=== PATIENT | female | born 1930 | race Caucasian/White ===

== ENCOUNTER 2017-07-03 19:27 | Inpatient (IN) | payer BC ==
[2017-07-03 20:01] VITALS: BMI 32.8
--- NOTE | 2017-07-03 20:35 | PDOC ---
History of Present Illness - History of Present Illness Initial Comments: 07/03/17 20:47 The patient is an 87 year old female with history of hypertension, hyperlipidemia, a-fib, brought in by her daughter for approximately 1 day of altered mental status. Per the patient's daughter at bedside, the patient has not gotten out of her rocking chair for greater than 24 hours secondary to generalized weakness. The daughter also reports the patient has been hallucinating about visiting family members. She has been urinating in her diapers in her chair. She also complains of bilateral knee pain which is common secondary to her arthritis. No fever noted. No complaints of dysuria or changes in urination. No chest pain or shortness of breath. No headache, blurred vision , or numbness or tingling. PCP is part of the [facility] <Tsering Guo - Last Filed: 07/04/17 03:54> - General History Source: Patient <Buzz Connelly - Last Filed: 07/08/17 20:12> - General Chief Complaint: Loss of Appetite Stated Complaint: FAILURE TO THRIVE Time Seen by Provider: 07/03/17 19:36 Past History <Tsering Guo - Last Filed: 07/04/17 03:54> - Past Medical History Cardiac Disorders: Yes (afib) GI Disorders: Yes (gi bleed 2* to coumadin) HTN: Yes Hypercholesterolemia: Yes - Surgical History Abdominal Surgery: Yes Cholecystectomy: Yes - Suicide/Smoking/Psychosocial Hx Smoking History: Never smoked Have you smoked in the past 12 months: No Information on smoking cessation initiated: No Hx Alcohol Use: No Drug/Substance Use Hx: No Hx Substance Use Treatment: No <Buzz Connelly - Last Filed: 07/08/17 20:12> - Past Medical History Allergies/Adverse Reactions: Allergies Allergy/AdvReac Type Severity Reaction Status Date / Time No Known Allergies Allergy Verified 07/03/17 19:56 Home Medications: Ambulatory Orders Allopurinol [Zyloprim -] 200 mg PO DAILY 08/27/13 Furosemide [Lasix -] 40 mg PO DAILY 08/27/13 Aspirin [ASA -] 81 mg PO DAILY #0 tab.chew 09/03/13 Cholecalciferol (Vitamin D3) [Vitamin D3 -] 1,000 unit PO DAILY #0 tab 09/03/13 Clonidine HCl [Catapres -] 0.2 mg PO BID #0 tablet 09/03/13 Losartan Potassium [Cozaar -] 50 mg PO DAILY #0 tablet 09/03/13 Mag Hydrox/Al Hydrox/Simeth [Mylanta Oral Suspension -] 30 ml PO TID #0 cup 01/10 Atorvastatin Ca [Lipitor] 20 mg PO HS 07/03/17 Diltiazem HCl [Cartia Xt] 180 mg PO DAILY 07/03/17 Metoprolol Succinate [Toprol XL -] 100 mg PO BID 07/03/17 Ramipril 2.5 mg PO DAILY 07/03/17 Torsemide 40 mg PO DAILY 07/03/17 Review of Systems - Review of Systems Able to Perform ROS?: Yes Comments:: 07/03/17 20:51 GENERAL/CONSTITUTIONAL: +Generalized weakness. No fever. HEAD, EYES, EARS, NOSE AND THROAT: No change in vision. No ear pain or discharge. No sore throat. GASTROINTESTINAL: No nausea, vomiting, diarrhea or constipation. GENITOURINARY: No dysuria, frequency, or change in urination. CARDIOVASCULAR: No chest pain or shortness of breath. RESPIRATORY: No cough, wheezing, or hemoptysis. MUSCULOSKELETAL: +Bilateral knee pain. No neck or back pain. SKIN: No rash NEUROLOGIC: +AMS, confusion, hallucination. No headache, vertigo, loss of consciousness, focal weakness, or change in sensation. ENDOCRINE: No increased thirst. No abnormal weight change. HEMATOLOGIC/LYMPHATIC: No anemia, easy bleeding, or history of blood clots. ALLERGIC/IMMUNOLOGIC: +Rash in diaper region. No hives or skin allergy. <Tsering Guo - Last Filed: 07/04/17 03:54> *Physical Exam - Vital Signs Last Vital Signs Temp Pulse Resp BP Pulse Ox 98.0 F 74 14 153/76 95 07/03/17 19:57 07/03/17 19:57 07/03/17 19:57 07/03/17 19:57 07/03/17 19:57 - Physical Exam Comments: 07/03/17 20:52 Constitutional: Awake, alert, oriented to self and place but not time. No acute distress. Head: Normocephalic. Atraumatic Eyes: PERRL. EOMI. Conjunctivae are not pale. +Sclera are injected with swelling of the lower lids bilateral. ENT: +Mucous membranes are dry. Posterior pharynx without exudates or erythema. Uvula midline. Neck: Supple. Full ROM. No lymphadenopathy. Cardiovascular: Regular rate. Regular rhythm. S1, S2 regular. Distal pulses are 2+ and symmetric. Pulmonary/Chest: No evidence of respiratory distress. Clear to auscultation bilaterally No wheezing, rales or rhonchi. Abdominal: Soft and non-distended. There is no tenderness. No rebound, guarding or rigidity. No organomegaly. No palpable masses. Good bowel sounds. Back: No CVA tenderness. Musculoskeletal: 2+ bilateral pitting lower extremity, no erythema or warmth. No cyanosis. No clubbing. Full range of motion in all extremities. No calf tenderness. Radial/pedal pulses are intact and 2+ bilaterally Skin: Erythema in the diaper region that is consistent with ramos. Neurological: Alert and oriented to person, place, not time. Cranial nerves II- XII are grossly intact. Normal speech. Strength is grossly symmetric. No sensory deficits. <Tsering Guo - Last Filed: 07/04/17 03:54> - Vital Signs Last Vital Signs Temp Pulse Resp BP Pulse Ox 98.0 F 74 14 153/76 95 07/03/17 19:57 07/03/17 19:57 07/03/17 19:57 07/03/17 19:57 07/03/17 19:57 <Buzz Connelly - Last Filed: 07/08/17 20:12> Heart Score/ECG Review #1 07/03/17 22:20 EKG obtained 21:27. Vent rate 102 bpm Atrial fibrillation with rapid ventricular response with premature ventricular or aberrantly conducted complexes. Rightward axis. Nonspecific ST and T wave abnormality. Abnormal EKG. 07/04/17 03:54 EKG obtained 3:52 Vent rate 99 bpm. Atrial fibrillation with premature ventricular or aberrantly conducted complexes. Nonspecific ST and T wave abnormality Prolonged QT Abnormal EKG <Tsering Guo - Last Filed: 07/04/17 03:54> ED Treatment Course - LABORATORY CBC & Chemistry Diagram: 07/03/17 21:05 07/03/17 21:05 <Tsering Guo - Last Filed: 07/04/17 03:54> - LABORATORY CBC & Chemistry Diagram: 07/08/17 06:50 07/08/17 06:50 <Buzz Connelly - Last Filed: 07/08/17 20:12> Medical Decision Making - Medical Decision Making 07/08/17 20:12 Dr. Connelly: The scribe's documentation has been prepared under my direction and personally reviewed by me in its entirery. I confirm that the note above accurately reflects all work, treatment, procedures, and medical decision making performed by me. <Buzz Connelly - Last Filed: 07/08/17 20:12> *DC/Admit/Observation/Transfer - Attestations Scribe Attestion: 07/03/17 21:02 Documentation prepared by Tsering Guo, acting as medical surgery nurse for Buzz Connelly DO. <Tsering Guo - Last Filed: 07/04/17 03:54> - Discharge Dispostion Admit: Yes <Buzz Connelly - Last Filed: 07/08/17 20:12> Diagnosis at time of Disposition: UTI (urinary tract infection) Qualifiers: Urinary tract infection type: acute cystitis Hematuria presence: without hematuria Qualified Code(s): N30.00 - Acute cystitis without hematuria Failure to thrive Qualifiers: Failure to thrive age range: in adult Qualified Code(s): R62.7 - Adult failure to thrive - Discharge Dispostion Condition at time of disposition: Stable
[2017-07-03] MEDS ORDERED: NYSTATIN 100,000 UNIT/GM TOPICAL CREAM 15 GM TUBE TP STA (20:47)
[2017-07-03 21:12] LABS: BASO % 0.4 % (0-2.0); HEMATOCRIT 41.4 % (32.4-45.2); HEMOGLOBIN 13.5 GM/dL (10.7-15.3); LYMPH % 8.1 % (8-40); MCHC 32.5 g/dl (32.0-36.0); MEAN CELL VOLUME 89.3 fl (80-96); MEAN PLT VOLUME 8.7 fl (7.5-11.1); MONO % 8.6 % (3.8-10.2); NEUT % 82.9 % (42.8-82.8); PLATELET COUNT 242 K/MM3 (134-434); RBC 4.64 M/mm3 (3.60-5.2); RDW 15.5 % (11.6-15.6); WHITE BLOOD COUNT 16.5 K/mm3 (4.0-10.0)
[2017-07-03 21:18] LABS: VENOUS PC02 24.7 mmHg (38-52); VENOUS PH 7.43 (7.32-7.42); VENOUS PO2 36.3 mmHg (28-48)
[2017-07-03 21:24] LABS: INR 1.31 (0.82-1.09); PROTHROMBIN TIME (PATIENT) 14.8 SEC (9.98-11.88)
[2017-07-03 21:31] LABS: URINE APPEARANCE CLOUDY; URINE BILIRUBIN NEGATIVE (NEGATIVE); URINE BLOOD 2+ (NEGATIVE); URINE COLOR DKYELLOW; URINE GLUCOSE (UA) NEGATIVE (NEGATIVE); URINE KETONE NEGATIVE (NEGATIVE); URINE NITRITE POSITIVE (NEGATIVE)
[2017-07-03 21:35] LABS: URINE PROTEIN 2+ (NEGATIVE)
[2017-07-03 21:36] LABS: URINE LEUK ESTERASE 3+ (NEGATIVE)
[2017-07-03 21:45] LABS: EPI CELLS RARE /HPF (FEW); URINE BACTERIA MANY /hpf (NONE SEEN); URINE HYALINE CAST 6 /lpf; URINE MUCUS RARE; YEAST FEW
[2017-07-03 21:46] LABS: ALBUMIN 3.1 g/dl (3.4-5.0); ANION GAP 9 (8-16); BILIRUBIN,TOTAL 2.7 mg/dL (0.2-1.0); BLOOD UREA NITROGEN 27 mg/dL (7-18); CALCIUM 8.9 mg/dL (8.5-10.1); CHLORIDE 106 mmol/L (98-107); CO2 29 mmol/L (21-32); CREATININE 1.1 mg/dL (0.55-1.02); GLUCOSE,RANDOM 129 mg/dL (74-106); POTASSIUM 3.5 mmol/L (3.5-5.1); SGOT/AST 45 U/L (15-37); SGPT/ALT 37 U/L (12-78); SODIUM 144 mmol/L (136-145); TOT PROT 6.7 g/dl (6.4-8.2)
[2017-07-03 21:49] LABS: ALK PHOS 189 U/L (45-117)
[2017-07-03] MEDS ORDERED: CEFTRIAXONE 1 GM/50 ML BAG ONE (22:11)
--- NOTE | 2017-07-03 22:29 | HP ---
CHIEF COMPLAINT: AMS, suspected UTI PCP: Dr. Radha Vivas Source: Daughter at bedside HISTORY OF PRESENT ILLNESS: 87 yo woman w/ pmh of HTN, HLD, afib (not currently on AC due to prior GI bleed) , stress incontinence, CVD who was BIBEMS in setting of two days of AMS and BL LE weakness. At baseline, pt lives at home on her own and is independent in all ADLs, however receives some assistance from her daughter who shops for her groceries. Per daughter, pt has no neurologic deficits at baseline, however over the last two days has been intermittently altered, speaking nonsensically and endorsing hallucinations of relatives who are not there. Yesterday, pt sat down in rocking chair at home and called daughter saying she was going to bed. However, pt was still in chair the next morning when pt checked on and has apparently urinated on herself. Pt with hx of stress incontinence for many years , however no hx of UTIs. Pt wears pads for chronic stress incontinence. Pt also w/ four days of productive cough with sputum resembling "tereso's glue", in addition to chills over last few days. Pt denies any fever, YOUNG/dizziness, CP, SOB, WOOD, dysuria, hematuria, diarrhea, focal neurologic deficits or peripheral numbness/tingling. Pt with BL arthralgias in knee for past two weeks (pt used to received steroid injections in past for knee pain, however not recently). She has never been hospitalized for UTI or infections before. No recent travel or sick contacts. ER course was notable for: (1)WBC 16.5 (2)UA + nitrites, WBCs (3)Trop 0.11, CK 694 (4)CXR w/ possible infiltrates Recent Travel: None PAST MEDICAL HISTORY: Afib HTN HLD GI bleed BL knee arthritis of unknown etiology ?gout CHF chronic venous insufficiency Esophageal cancer (elected for conservative management) PAST SURGICAL HISTORY: GB removal Hysterectomy Brain tumor resection (meningioma?) Social History: Smoking: No Alcohol: No Drugs: No Family History: Unable to obtain Allergies No Known Allergies Allergy (Verified 07/03/17 19:56) HOME MEDICATIONS: Home Medications Medication Instructions Recorded Allopurinol [Zyloprim -] 100 mg PO BID 08/27/13 Furosemide [Lasix -] 40 mg PO DAILY 08/27/13 Aspirin [ASA -] 81 mg PO DAILY #0 tab.chew 09/03/13 Atorvastatin Ca [Lipitor] 40 mg PO HS #0 tablet 09/03/13 Cholecalciferol (Vitamin D3) 1,000 unit PO DAILY #0 tab 09/03/13 [Vitamin D3 -] Clonidine HCl [Catapres -] 0.2 mg PO BID #0 tablet 09/03/13 Losartan Potassium [Cozaar -] 50 mg PO DAILY #0 tablet 09/03/13 Mag Hydrox/Al Hydrox/Simeth 30 ml PO TID #0 cup 09/03/13 [Mylanta Oral Suspension -] Metoprolol Succinate [Toprol XL -] 75 mg PO BID #0 tab.sr.24h 09/03/13 REVIEW OF SYSTEMS CONSTITUTIONAL: loss of appetite, generalized weakness, Absent: fever, chills, diaphoresis, malaise, weight change HEENT: Absent: rhinorrhea, nasal congestion, throat pain, throat swelling, difficulty swallowing, mouth swelling, ear pain, eye pain, visual changes CARDIOVASCULAR: Absent: chest pain, syncope, palpitations, irregular heart rate, lightheadedness , peripheral edema RESPIRATORY: Absent: cough, shortness of breath, dyspnea with exertion, orthopnea, wheezing, stridor, hemoptysis GASTROINTESTINAL: Absent: abdominal pain, abdominal distension, nausea, vomiting, diarrhea, constipation, melena, hematochezia GENITOURINARY: dysuria, Absent: frequency, urgency, hesitancy, hematuria, flank pain, genital pain MUSCULOSKELETAL: BL arthralgias in knees Absent: myalgia, joint swelling, back pain, neck pain SKIN: Absent: rash, itching, pallor HEMATOLOGIC/IMMUNOLOGIC: Absent: easy bleeding, easy bruising, lymphadenopathy, frequent infections ENDOCRINE: Absent: unexplained weight gain, unexplained weight loss, heat intolerance, cold intolerance NEUROLOGIC: mental status changes, LE weakness BL Absent: headache, focal weakness or paresthesias, dizziness, unsteady gait, seizure, bladder or bowel incontinence PSYCHIATRIC: Absent: anxiety, depression, suicidal or homicidal ideation, hallucinations. PHYSICAL EXAMINATION Vital Signs - 24 hr 07/03/17 19:57 Temperature 98.0 F Pulse Rate 74 Respiratory 14 Rate Blood Pressure 153/76 O2 Sat by Pulse 95 Oximetry (%) GENERAL: Pt A&Ox1, responsive to commands/questions HEAD: Normal with no signs of trauma. EYES: BL conjunctival injections. Lower eyelid hyperemia. Pupils equal, round and reactive to light, extraocular movements intact, sclera anicteric. No lid lag. EARS, NOSE, THROAT: Ears normal, nares patent, oropharynx clear without exudates. Moist mucous membranes. NECK: Normal range of motion, supple without lymphadenopathy, JVD, or masses. LUNGS: Decreased breath sounds at bases BL. No wheezes and no crackles. No accessory muscle use. HEART: Irregularly irregular. Distant heart sounds. normal S1 and S2. No other murmurs noted. ABDOMEN: +suprapubic tenderness to superficial and deep palpation. Otherwise, soft, nontender, not distended, normoactive bowel sounds, no guarding, no rebound, no masses. No hepatomegaly or splenomegaly. MUSCULOSKELETAL: BL restricted ROM at knees, painful to passive movement. Normal range of motion at all joints. No bony deformities or tenderness. No CVA tenderness. UPPER EXTREMITIES: 2+ pulses, warm, well-perfused. No cyanosis. No clubbing. No peripheral edema. LOWER EXTREMITIES: BL chronic venous insufficiency/stasis dermatitis, 3+ BL pitting edema to mid calf. Unable to assess pulses. No calf tenderness. NEUROLOGICAL: Cranial nerves II-XII intact. Normal speech. Gait not evaluated. 5/5 strength in UEs BL. 3/5 dorsiflexion in feet BL. 4/5 plantarflexion BL. Unable to assess strength at knee, given limitation of movement due to pain. PSYCHIATRIC: Cooperative. Good eye contact. Appropriate mood and affect. Tangential speech pattern, normal rate and prosody. Denies any current delusions , hallucinations. Pelvic: BL intertriginous rashes in inguinal folds consistent w/ diaper rash SKIN: BL venous statis changes in legs BL. Otherwise, warm, dry, normal turgor, no rashes or lesions noted, normal capillary refill. Laboratory Results - last 24 hr CBC, BMP 07/03/17 21:05 07/03/17 21:05 07/03/17 07/03/17 07/03/17 21:05 21:05 21:05 WBC 16.5 H D RBC 4.64 Hgb 13.5 Hct 41.4 MCV 89.3 MCH 29.0 MCHC 32.5 RDW 15.5 Plt Count 242 D MPV 8.7 D Neutrophils % 82.9 H D Lymphocytes % 8.1 D Monocytes % 8.6 Eosinophils % 0.0 D Basophils % 0.4 PT with INR 14.80 H INR 1.31 H PTT (Actin FS) 31.0 VBG pH POC VBG pCO2 POC VBG pO2 Mixed VBG HCO3 Sodium 144 Potassium 3.5 Chloride 106 Carbon Dioxide 29 Anion Gap 9 BUN 27 H D Creatinine 1.1 H Creat Clearance w eGFR 46.88 Random Glucose 129 H D Lactic Acid Calcium 8.9 Total Bilirubin 2.7 H D AST 45 H D ALT 37 Alkaline Phosphatase 189 H D Creatine Kinase 694 H Troponin I 0.11 H Total Protein 6.7 Albumin 3.1 L Urine Color Urine Appearance Urine pH Ur Specific Burke Urine Protein Urine Glucose (UA) Urine Ketones Urine Blood Urine Nitrite Urine Bilirubin Urine Urobilinogen Urine WBC (Auto) Urine RBC (Auto) Ur Epithelial Cells Urine Bacteria Hyaline Casts Urine Mucus Urine Yeast 07/03/17 07/03/17 07/03/17 21:05 21:10 21:20 WBC RBC Hgb Hct MCV MCH MCHC RDW Plt Count MPV Neutrophils % Lymphocytes % Monocytes % Eosinophils % Basophils % PT with INR INR PTT (Actin FS) VBG pH 7.43 H POC VBG pCO2 24.7 L POC VBG pO2 36.3 Mixed VBG HCO3 16.0 L Sodium Potassium Chloride Carbon Dioxide Anion Gap BUN Creatinine Creat Clearance w eGFR Random Glucose Lactic Acid 2.0 Calcium Total Bilirubin AST ALT Alkaline Phosphatase Creatine Kinase Troponin I Total Protein Albumin Urine Color Dkyellow Urine Appearance Cloudy Urine pH 5.0 Ur Specific Burke 1.016 Urine Protein 2+ H Urine Glucose (UA) Negative Urine Ketones Negative Urine Blood 2+ H Urine Nitrite Positive Urine Bilirubin Negative Urine Urobilinogen 2.0 H Urine WBC (Auto) 116 Urine RBC (Auto) 5 Ur Epithelial Cells Rare Urine Bacteria Many Hyaline Casts 6 Urine Mucus Rare Urine Yeast Few UA + WBCs, Nitrites EKG - Vent rate 102 bpm Atrial fibrillation with rapid ventricular response with premature ventricular or aberrantly conducted complexes. Rightward axis. Nonspecific ST and T wave abnormality. Abnormal EKG. CXR - Possible BL infiltrative pattern. Pt with chronic pleural effusions, consistent with prior studies. ASSESSMENT/PLAN: 87 yo woman w/ pmh of HTN, HLD, afib (not currently on AC due to prior GI bleed) , CVD who was BIBEMS in setting of two days of AMS and BL LE weakness. Differential for AMS remains broad, although likely secondary to active infection (UTI vs. PNA). However, must consider other possibilities (CVA, metabolic/vitamin abnormalities, syphilis etc...) #AMS - Differential includes infectious, metabolic, vascular, cardiogenic - Monitor MS - F/u all cultures; w/u for possible UTI vs PNA - TSH level - Vitamin B12 level - Non-con CT of head - RPR - ECHO #Elevated Trops - r/o ME - Trend trops - AM EKG #Elevated WBC - PNA vs. UTI; UA + for WBC, nitrites; CXR with possible BL infiltrates; WBC 16.5; afebrile - Ceftriaxone/azithromycin for presumptive CAP - ID consult, recs appreciated - trend lactate - trend wbc, fever curve - F/u all cultures - Sputum culture - Urine legionella antigen - Monitor for signs of HTN #Afib - Afib w/ RVR on EKG - No AC due to prior GI bleed - Rate control #CHF - not currently in exacerbation clinically - C/w ACEi, BB, torsemide - ECHO - Strict Is and Os - Monitor fluid status - Hold IVFs for now #Elevated Alk Phos - Liver U/S - CMP in AM; trend alk phos - f/u GGT #HTN - C/w home clonidine, diltiazem meds - Monitor for hypotension in setting of active infection #Chronic Venous Insufficiency - Wound care as outpt - Podiatry consult #Bl Inguinal rash - likely cutaneous candidiasis - Topical clotrimazole BID #HLD - C/w home lipitor #Gout - confirm med -c/w zyloprim #Prior GI Bleed - S+S - PPI for ppx - Monitor for hematemesis, melena PPX PPI Heparin Subq FEN Hold fluids until assess volume status Daily BMP NPO until after S+S eval Plan discussed with attending, Dr. Calista Sheridan, PGY1
--- NOTE | 2017-07-03 23:00 | PN ---
Teaching Attending Note Name of Resident: Armond Sheridan ATTENDING PHYSICIAN STATEMENT I saw and evaluated the patient. Chart, data, imaging reviewed. I reviewed the resident's note and discussed the case with the resident. I agree with the resident's findings and plan as documented. SUBJECTIVE: 87 year old female with history of hypertension, hyperlipidemia, a-fib, brought in by her daughter for approximately 1 day of altered mental status. Per the patient's daughter at bedside, the patient has not gotten out of her rocking chair for greater than 24 hours secondary to generalized weakness. Patient was previously independent and able to carry out her ADLs .As per daughter, patient has been hallucinating and found to have urinated on herself. She was thought to have uti and given ceftriaxone in ER. OBJECTIVE: Last Vital Signs Temp Pulse Resp BP Pulse Ox 98.0 F 74 14 153/76 95 07/03/17 19:57 07/03/17 19:57 07/03/17 19:57 07/03/17 19:57 07/03/17 19:57 General- disheveled , disorganized, unkept obese HEENT - no sinus tenderness, moist oral mucosa neck - no masses, no jvd cv-s1+s2+rrr chest - cta b/l abdomen- soft, nt, no masses, obese. intertrigo in skin folds between abdomen and thighs b/l ext- b/l venous stasis changes in LE, unkept nails Neuro- disoriented, no focal neuro deficits appreciated Abnormal Lab Results 07/03/17 07/03/17 07/03/17 21:05 21:05 21:05 WBC 16.5 H D Neutrophils % 82.9 H D PT with INR 14.80 H INR 1.31 H VBG pH POC VBG pCO2 Mixed VBG HCO3 BUN 27 H D Creatinine 1.1 H Random Glucose 129 H D Lactic Acid Total Bilirubin 2.7 H D AST 45 H D Alkaline Phosphatase 189 H D Creatine Kinase 694 H CK-MB (CK-2) 12.988 H Troponin I 0.11 H Albumin 3.1 L Urine Protein Urine Blood Urine Urobilinogen 07/03/17 07/03/17 07/04/17 21:10 21:20 00:07 WBC Neutrophils % PT with INR INR VBG pH 7.43 H POC VBG pCO2 24.7 L Mixed VBG HCO3 16.0 L BUN Creatinine Random Glucose Lactic Acid 2.1 H* Total Bilirubin AST Alkaline Phosphatase Creatine Kinase CK-MB (CK-2) Troponin I Albumin Urine Protein 2+ H Urine Blood 2+ H Urine Urobilinogen 2.0 H ASSESSMENT AND PLAN: #Altered mental status- likely 2/2 to UTI as UA showed pyuria, bacteria+, and nitrite+, leukocytosis was seen on CBC. Already received 1g ceftriaxone in the ER. SHould also consider pneumonia - as increased cxr opacifications are evident b/l. Should r/o other causes of AMS such as acute intracranial event, thyroid dz, vit b12 deficiency, syphilis substance abuse, etc. -admit to telemetry -send urine culture -send blood culture x2 -continue ceftriaxone 1g IV [id number] -add azithromycin 500mg IV q24hrs -sputum culture -legionella urine ag -Head CT C- to r/o bleed/infarct/masss -vit b12 level -tsh -syphilis serology (RPR) -urine toxicology screen -EToh level -transhtoracic echo to r/o decreased EF #Elevated troponins - ekg without any significant st- t changes -admit to telemetry -repeat ekg -echo -trend troponin -aspirin #Hyperkeratotic nails - -podiatry evaluation for nail debridement and foot care #Intertrigo rash -clotrimazole topically -heparin sc for dvt ppx -NPO for now -restart home meds
[2017-07-04] MEDS ORDERED: AZITHROMYCIN IVPB 250 ML IVPB ONE ×2 (02:47→04:11)
[2017-07-04 04:06] LABS: COCAINE, UR NEGATIVE ng/ml (CUTOFF=300); METHADONE, UR NEGATIVE ng/ml (CUTOFF=300); OPIATES, URI NEGATIVE ng/ml (CUTOFF=300); PHENCYCLIDINE,URINE NEGATIVE ng/ml (CUTOFF=25); URINE AMPHETAMINES NEGATIVE ng/ml (CUTOFF=500); URINE BARBITURATES NEGATIVE ng/ml (CUTOFF=200); URINE BENZODIAZEPINES NEGATIVE ng/ml (CUTOFF=200)
[2017-07-04] MEDS: HEPARIN NA (PORCINE) 5,000 UNITS/ML 1ML VIAL SQ SCH ×3 (06:04→21:23)
[2017-07-04] MEDS ORDERED: HEPARIN NA (PORCINE) 5,000 UNITS/ML 1ML VIAL ONE (06:05)
[2017-07-04 08:42] LABS: BASO % 0.6 % (0-2.0); EOS % 0.1 % (0-4.5); HEMATOCRIT 39.6 % (32.4-45.2); HEMOGLOBIN 12.7 GM/dL (10.7-15.3); LYMPH % 9.3 % (8-40); MCH 28.8 pg (25.7-33.7); MCHC 32.1 g/dl (32.0-36.0); MEAN CELL VOLUME 89.5 fl (80-96); MEAN PLT VOLUME 8.5 fl (7.5-11.1); MONO % 9.5 % (3.8-10.2); NEUT % 80.5 % (42.8-82.8); PLATELET COUNT 266 K/MM3 (134-434); RBC 4.42 M/mm3 (3.60-5.2); RDW 15.9 % (11.6-15.6); WHITE BLOOD COUNT 15.1 K/mm3 (4.0-10.0)
--- NOTE | 2017-07-04 08:55 | PN ---
Progress Note, Physician Chief Complaint: ID According to daughter patient completely confused for 2 days. Normally she ambulates at home with a walker and get around with no problem. Currently difficult to assess mental status but she can answer some questions Mention of productive couph for 4 days - Current Medication List Current Medications: Active Medications Clotrimazole (Lotrimin 1% Cream -) 1 applic TP BID NOEMÍ Heparin Sodium (Porcine) (Heparin -) 5,000 unit SQ TID NOEMÍ Last Admin: 07/04/17 06:04 Dose: 5,000 unit CEFTRIAXONE 1 G/50 ML PREMIX (Ceftriaxone 1 Gm-D5w Bag) 50 mls @ 100 mls/hr IVPB ONCE ONE Stop: 07/04/17 21:29 Pantoprazole Sodium (Protonix -) 40 mg PO DAILY NOEMÍ Sodium Chloride (Normal Saline -) 1,000 ml IV Q20M PRN PRN Reason: MAP<65mm Hg OR SBP <90 - Objective Vital Signs: Vital Signs Temperature 97.8 F 07/04/17 01:20 Pulse Rate 82 07/04/17 01:20 Respiratory Rate 18 07/04/17 01:20 Blood Pressure 148/72 07/04/17 01:20 O2 Sat by Pulse Oximetry (%) 95 07/04/17 01:20 Eyes: Yes: Other (Injection of conjunctiva bilateral and sclera) Neck: Yes: WNL, Supple Cardiovascular: Yes: Pulse Irregular, S1, S2 Respiratory: Yes: WNL, Regular, CTA Bilaterally, Rales Gastrointestinal: Yes: WNL, Normal Bowel Sounds, Soft. No: Tenderness, Tenderness, Epigastrium Edema: No Labs: INR, PTT INR 1.31 (0.82-1.09) H 07/03/17 21:05 Problem List - Problems (1) Altered mental status Code(s): R41.82 - ALTERED MENTAL STATUS, UNSPECIFIED (2) UTI (urinary tract infection) Code(s): N39.0 - URINARY TRACT INFECTION, SITE NOT SPECIFIED Qualifiers: Hematuria presence: without hematuria Assessment/Plan Microbiology Laboratory Tests 07/03/17 07/03/17 07/03/17 21:05 21:05 21:05 WBC 16.5 H D Hgb 13.5 Plt Count 242 D Neutrophils % 82.9 H D Lymphocytes % 8.1 D Monocytes % 8.6 Eosinophils % 0.0 D Sodium 144 Potassium 3.5 BUN 27 H D Creatinine 1.1 H Creat Clearance w eGFR 46.88 Lactic Acid 2.0 Total Bilirubin 2.7 H D AST 45 H D ALT 37 Alkaline Phosphatase 189 H D Urine WBC (Auto) Urine RBC (Auto) Urine Bacteria RPR Titer 07/03/17 07/04/17 07/04/17 21:20 00:07 08:10 WBC Hgb Plt Count Neutrophils % Lymphocytes % Monocytes % Eosinophils % Sodium Potassium BUN Creatinine Creat Clearance w eGFR Lactic Acid 2.1 H* Total Bilirubin AST ALT Alkaline Phosphatase Urine WBC (Auto) 116 Urine RBC (Auto) 5 Urine Bacteria Many RPR Titer Pending Assessment Elderly female with altered mental status x 2 days couph (? infiltrate ) leukocytosis and pyuria Differental diagnosis includes pneumonia and urinary infection Incidental bilateral blepharitis Plan Pending cultures 2 grs ceftriaxone Oralia HOOD
[2017-07-04 09:18] LABS: ALBUMIN 2.9 g/dl (3.4-5.0); ANION GAP 13 (8-16); BILIRUBIN,TOTAL 2.5 mg/dL (0.2-1.0); BLOOD UREA NITROGEN 25 mg/dL (7-18); CALCIUM 8.7 mg/dL (8.5-10.1); CHLORIDE 107 mmol/L (98-107); CO2 25 mmol/L (21-32); GLUCOSE,RANDOM 120 mg/dL (74-106); MAGNESIUM 1.7 mg/dL (1.8-2.4); PHOSPHOROUS 3.1 mg/dL (2.5-4.9); SGOT/AST 50 U/L (15-37); SGPT/ALT 35 U/L (12-78)
--- NOTE | 2017-07-04 09:36 | CONS ---
DATE OF CONSULTATION: DATE OF DICTATION: 07/04/2017 INFECTIOUS DISEASE CONSULTATION HISTORY OF PRESENT ILLNESS: This is an 87-year-old female who was admitted from home with the chief complaint of altered mental status, with confusion at home, and according to her daughter, sitting in a chair for the last 2 days, unable to move. Normally this woman lives at home and is able to get around without limitation with the aid of a walker. She was brought to the emergency room, where a CAT scan of the head failed to show any evidence of an acute intracerebral process. She was afebrile, with stable vital signs, and a white count of 16.5. A urinalysis had many white cells and positive nitrites. I am asked to see her for further evaluation. At the current time the patient is arousable but declining to be thoroughly examined. She is able to answer some questions with limited responses, and does not appear to be in any acute distress. PAST MEDICAL HISTORY: Includes atrial fibrillation, hypertension, hyperlipidemia, GI bleeding, bilateral knee arthritis, congestive heart failure, chronic venous insufficiency, esophageal cancer, hysterectomy, meningioma resection, cholecystectomy. MEDICATIONS: Allopurinol, Lasix, aspirin, atorvastatin, vitamin D, losartan, metoprolol. ALLERGIES: None known. FAMILY HISTORY: Reviewed and noncontributory. SOCIAL HISTORY: Nonsmoker. Lives at home. No alcohol use. A . REVIEW OF SYSTEMS: Respiratory: Productive cough noted for several days. No shortness of breath. Cardiac: History of atrial fibrillation. No chest pain, palpitations or syncope noted. Gastrointestinal: No nausea, vomiting, abdominal pain, diarrhea. Genitourinary: Incontinent of urine. No gross hematuria or dysuria. PHYSICAL EXAMINATION: General: The patient was a heavy-set woman, arousable, in no distress. Vital Signs: Temperature 97.8, pulse 74, blood pressure 153/76, respirations 18. O2 saturation 95%. Neck: Supple, with full range of motion. Lungs: A few rales noted. Heart: S1, S2. Irregularly irregular rhythm. Abdomen: Soft, nontender. No organomegaly. Extremities: Chronic stasis dermatitis of both lower extremities with mild edema. DIAGNOSTIC STUDIES: White count 16.5, hemoglobin 13.5, platelets 242, with a differential with 83% polys and otherwise normal differential. BUN 27, creatinine 1.1, glucose 129, lactic acid 2.1, alkaline phosphatase 189, AST 45, ALT 37. Urinalysis with 115 WBCs, 5 RBCs, many bacteria. ASSESSMENT: An 87-year-old female presents with altered mental status, leukocytosis, findings consistent with urinary tract infection. The possibility of pneumonia also considered. Additionally, she has elevated liver enzymes, with an alkaline phosphatase of 189. In the absence of any obvious abdominal complaints, the possibility of a fatty liver is considered. PLAN: Pending blood and urine cultures, will empirically treat with ceftriaxone 2 g daily. Await cultures. Obtain a liver sonogram. IV hydration. KATIA FLORES M.D. [id number]
[2017-07-04 09:48] LABS: POTASSIUM 2.9 mmol/L (3.5-5.1)
[2017-07-04 09:49] LABS: ALK PHOS 179 U/L (45-117); SODIUM 145 mmol/L (136-145); TOT PROT 6.3 g/dl (6.4-8.2)
[2017-07-04] MEDS ORDERED: POTASSIUM CHLORIDE 20 MEQ PREMIX IVPB 100 ML IVPB ONE (10:20)
--- NOTE | 2017-07-04 10:24 | EKG ---
Test Reason : Blood Pressure : / mmHG Vent. Rate : 099 BPM Atrial Rate : 084 BPM P-R Int : 000 ms QRS Dur : 100 ms QT Int : 390 ms P-R-T Axes : 000 088 155 degrees QTc Int : 500 ms ATRIAL FIBRILLATION WITH PREMATURE VENTRICULAR OR ABERRANTLY CONDUCTED COMPLEXES NONSPECIFIC ST AND T WAVE ABNORMALITY PROLONGED QT ABNORMAL ECG WHEN COMPARED WITH ECG OF 03-JUL-2017 21:27, QT HAS SHORTENED Confirmed by JAY HOOD, CANDIE ([id number]) on 07/04/2017 10:24:27 AM Referred By: Confirmed By:CANDIE THOMPSON MD
--- NOTE | 2017-07-04 10:25 | EKG ---
Test Reason : Blood Pressure : / mmHG Vent. Rate : 102 BPM Atrial Rate : 087 BPM P-R Int : 000 ms QRS Dur : 094 ms QT Int : 462 ms P-R-T Axes : 000 108 181 degrees QTc Int : 602 ms ATRIAL FIBRILLATION WITH RAPID VENTRICULAR RESPONSE WITH PREMATURE VENTRICULAR OR ABERRANTLY CONDUCTED COMPLEXES RIGHTWARD AXIS NONSPECIFIC ST AND T WAVE ABNORMALITY ABNORMAL ECG Confirmed by CANDIE THOMPSON MD ([id number]) on 07/04/2017 10:25:20 AM Referred By: Confirmed By:CANDIE THOMPSON MD
--- NOTE | 2017-07-04 10:45 | PN ---
Progress Note, Physician Chief Complaint: Ms Fajardo says she is annoyed because she has to be here. States she keeps taking off her clothes because she is hot. Denies cp, sob, n/v. - Current Medication List Current Medications: Active Medications Clotrimazole (Lotrimin 1% Cream -) 1 applic TP BID [facility] Heparin Sodium (Porcine) (Heparin -) 5,000 unit SQ TID [facility] Last Admin: 07/04/17 06:04 Dose: 5,000 unit CEFTRIAXONE 1 G/50 ML PREMIX (Ceftriaxone 1 Gm-D5w Bag) 50 mls @ 100 mls/hr IVPB DAILY@2200 [facility] Pantoprazole Sodium (Protonix -) 40 mg PO DAILY [facility] Potassium Chloride (Potassium Chloride 20 Meq Premix Ivpb -) 20 meq IVPB ONCE ONE Stop: 07/04/17 10:21 Sodium Chloride (Normal Saline -) 1,000 ml IV Q20M PRN PRN Reason: MAP<65mm Hg OR SBP <90 Tobramycin/Dexamethasone (Tobradex Ophthalmic Ointment -) 1 applic OU BID [facility] - Objective Vital Signs: Vital Signs Temperature 37.2 C 07/04/17 07:30 Pulse Rate 106 H 07/04/17 07:30 Respiratory Rate 19 07/04/17 07:30 Blood Pressure 156/88 07/04/17 07:30 O2 Sat by Pulse Oximetry (%) 98 07/04/17 07:30 Constitutional: Yes: No Distress, Calm, Obese Eyes: Yes: Other (bilateral blepharitis) Cardiovascular: Yes: Regular Rate and Rhythm. No: Gallop, Murmur, Rub Respiratory: Yes: Regular, CTA Bilaterally. No: Rales, Rhonchi, Wheezes Gastrointestinal: Yes: Normal Bowel Sounds, Soft. No: Distention, Tenderness Extremities: Yes: WNL Edema: No Labs: CBC, BMP 07/04/17 08:10 07/04/17 08:10 INR, PTT INR 1.31 (0.82-1.09) H 07/03/17 21:05 Problem List - Problems (1) UTI (urinary tract infection) Assessment/Plan: -patient presents with sepsis and found to have a UTI -admit to hospital -ID consulted -continue rocephin -follow up urine cultures -monitor for improvement Code(s): N39.0 - URINARY TRACT INFECTION, SITE NOT SPECIFIED Qualifiers: Urinary tract infection type: acute cystitis Hematuria presence: without hematuria Qualified Code(s): N30.00 - Acute cystitis without hematuria (2) Acute metabolic encephalopathy Assessment/Plan: -patient with altered mental status secondary to sepsis -continue antibiotics and hydration -speech therapy consulted for possible aspiration Code(s): G93.41 - METABOLIC ENCEPHALOPATHY (3) Sepsis Assessment/Plan: -as evidenced by UTI with tachycardia, AMS, hypoxia, and leukocytosis -present on admission -hydration and antibiotics as above Code(s): A41.9 - SEPSIS, UNSPECIFIED ORGANISM (4) Elevated troponin Assessment/Plan: -suspect stress induced from sepsis -case d/w cardiology who will see in consultation -no need for full anticoagulation at this time Code(s): R74.8 - ABNORMAL LEVELS OF OTHER SERUM ENZYMES (5) Atrial fibrillation Assessment/Plan: -treat underlying sepsis -cardiology consulted and will follow up recommendations Code(s): I48.91 - UNSPECIFIED ATRIAL FIBRILLATION Qualifiers: Atrial fibrillation type: paroxysmal Qualified Code(s): I48.0 - Paroxysmal atrial fibrillation (6) HTN (hypertension) Assessment/Plan: -allow permissive hypertension in sepsis Code(s): I10 - ESSENTIAL (PRIMARY) HYPERTENSION (7) Diastolic CHF Assessment/Plan: -not in exacerbation -monitor Code(s): I50.30 - UNSPECIFIED DIASTOLIC (CONGESTIVE) HEART FAILURE Qualifiers: Congestive heart failure chronicity: chronic Qualified Code(s): I50.32 - Chronic diastolic (congestive) heart failure (8) Blepharitis of both eyes Assessment/Plan: -continue tobradex Code(s): H01.003 - UNSPECIFIED BLEPHARITIS RIGHT EYE, UNSPECIFIED EYELID; H01.006 - UNSPECIFIED BLEPHARITIS LEFT EYE, UNSPECIFIED EYELID Qualifiers: Blepharitis type: squamous Eyelid: both upper and lower Qualified Code(s) : H01.021 - Squamous blepharitis right upper eyelid; H01.022 - Squamous blepharitis right lower eyelid; H01.022 - Squamous blepharitis right lower eyelid; H01.024 - Squamous blepharitis left upper eyelid; H01.024 - Squamous blepharitis left upper eyelid; H01.025 - Squamous blepharitis left lower eyelid ; H01.025 - Squamous blepharitis left lower eyelid
[2017-07-04] MEDS: SODIUM CHLORIDE 0.9% 1000 ML INFUS.BAG IV PRN ×2 (11:29→14:58)
[2017-07-04] MEDS: PANTOPRAZOLE 40 MG TABLET (FP) PO SCH (11:29)
[2017-07-04] MEDS: TOBRAMYCIN/DEXAMETHASONE OPHTH. OINTMENT 1 TUBE OU SCH ×2 (11:29→23:35)
[2017-07-04] MEDS ORDERED: POTASSIUM CHLORIDE 20 MEQ in SODIUM CHLORIDE 250 ML IVPB ONE (11:30)
[2017-07-04] MEDS: CLOTRIMAZOLE 1% CREAM 15 GM TUBE TP SCH ×2 (14:04→23:00)
--- NOTE | 2017-07-04 15:50 | CON.CARD ---
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 Per report, the patient had not gotten out of her rocking chair for greater than 24 hours secondary to generalized weakness. + hallucinations/confusions. Urinary incontinence. Patient is alert, but does not recall why she came into hospital. Does endorse needing to urinate frequently or constant sensation that she needs to urinate. Denies visual disturbances. + sweats/feels warm - trying to undress herself. + thirst. + chronic knee pain. LE edema improved/stable No cp, sob, palps, dizziness, orthopnea, pnd, syncope. . No headache, chills, n/v/d, h/a, bleeding, focal weakness. Pmhx: per hpi - Surgical History Abdominal Surgery: Yes Cholecystectomy: Yes family hx: no cardiac hx social hx: never smoker ros: per hpi Ambulatory Orders Allopurinol [Zyloprim -] 200 mg PO DAILY 08/27/13 Aspirin [ASA -] 81 mg PO DAILY #0 tab.chew 09/03/13 Cholecalciferol (Vitamin D3) [Vitamin D3 -] 1,000 unit PO DAILY #0 tab 09/03/13 Clonidine HCl [Catapres -] 0.2 mg PO BID #0 tablet 09/03/13 Losartan Potassium [Cozaar -] 50 mg PO DAILY #0 tablet 09/03/13 Mag Hydrox/Al Hydrox/Simeth [Mylanta Oral Suspension -] 30 ml PO TID #0 cup 01/10 Atorvastatin Ca [Lipitor] 20 mg PO HS 07/03/17 Diltiazem HCl [Cartia Xt] 180 mg PO DAILY 07/03/17 Metoprolol Succinate [Toprol XL -] 100 mg PO BID 07/03/17 Ramipril 2.5 mg PO DAILY 07/03/17 Torsemide 20 mg PO DAILY 07/03/17 Current Medications Clotrimazole (Lotrimin 1% Cream -) 1 applic TP BID [facility] Last Admin: 07/04/17 14:04 Dose: Not Given Heparin Sodium (Porcine) (Heparin -) 5,000 unit SQ TID [facility] Last Admin: 07/04/17 14:04 Dose: 5,000 unit CEFTRIAXONE 1 G/50 ML PREMIX (Ceftriaxone 1 Gm-D5w Bag) 50 mls @ 100 mls/hr IVPB DAILY@2200 [facility] Pantoprazole Sodium (Protonix -) 40 mg PO DAILY [facility] Last Admin: 07/04/17 11:29 Dose: 40 mg Sodium Chloride (Normal Saline -) 1,000 ml IV Q20M PRN PRN Reason: MAP<65mm Hg OR SBP <90 Last Admin: 07/04/17 11:29 Dose: 1,000 ml Tobramycin/Dexamethasone (Tobradex Ophthalmic Ointment -) 1 applic OU BID [facility] Last Admin: 07/04/17 11:29 Dose: 1 appful Vital Signs - 24 hr 07/03/17 07/04/17 07/04/17 19:57 01:20 07:30 Temperature 98.0 F 97.8 F 98.9 F Pulse Rate 74 Pulse Rate [ 82 106 H Apical] Respiratory 14 18 19 Rate Blood Pressure 153/76 Blood Pressure 148/72 156/88 [Right Arm] O2 Sat by Pulse 95 95 96 Oximetry (%) 07/04/17 14:53 Temperature Pulse Rate Pulse Rate [ 113 H Apical] Respiratory 18 Rate Blood Pressure Blood Pressure 156/71 [Right Arm] O2 Sat by Pulse 100 Oximetry (%) Intake & Output 07/02/17 07/03/17 07/04/17 07/05/17 07:59 07:59 07:59 07:59 Weight 210 lb CBC, BMP 07/04/17 08:10 07/04/17 08:10 nad, calm jvd tds, neck supple alert and oriented x 2 dry mucus membranes ctab, poor effort irregular, tachycardic 2/6 murmur at lsb + bs soft nt nd ext with trace edema, no cyanosis/clubbing chronic old venous stasis changes + dp/pt no carotid bruit no jaundice, diaphoresis Laboratory Tests 07/03/17 07/03/17 07/04/17 21:05 21:05 00:07 Lactic Acid 2.0 2.1 H* Magnesium Total Bilirubin 2.7 H D AST ALT Alkaline Phosphatase Creatine Kinase 694 H CK-MB (CK-2) Troponin I 0.11 H B-Natriuretic Peptide Albumin TSH 07/04/17 07/04/17 07/04/17 03:00 08:10 08:10 Lactic Acid Magnesium 1.7 L Total Bilirubin 2.5 H AST 50 H ALT 35 Alkaline Phosphatase 179 H Creatine Kinase 699 H 650 H CK-MB (CK-2) 12.698 H 11.580 H Troponin I 0.09 H 0.11 H B-Natriuretic Peptide Albumin 2.9 L TSH 0.47 07/04/17 07/04/17 08:10 08:32 Lactic Acid 1.7 Magnesium Total Bilirubin AST ALT Alkaline Phosphatase Creatine Kinase CK-MB (CK-2) Troponin I B-Natriuretic Peptide 2338.51 H Albumin TSH ekg: afib with pvc's. non-spec t wave ab. no acute ischemic changes. cxr: images and report reviewed. congestive changes, stable from prior. possible atelectasis/fluid at right base. head ct: non-hemorrhagic infarct rt occipital lobe (? age not clarified). s/p bifrontal craniotomies, midline partially calcified meningioma. lt frontal lobe vasogenic edema 2/2 meningioma (similar to 2010 MRI). echo 06/2017: nl lv fn. mod rve. rv sys function moderatly reduced. mod lae. mild-mod ant. 1+ mr. mod tr. sev phtn. trivial pericardial effusion. Echo 03/2016: afib. Low/nl EF 50-55% (beat to beat variability), mod PRETTY, mod RV dilation, bline dep RV fn. + MAC. 1+ /MR, Mod TR, mod pHTN (avg TR 42 mmHg ), cath 2005: LVEDP 18, EF 60%. pRCA mild, pLAD mild, mLAD 50-60%, pLCx mild, OM1 mild. 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 AMS/weakness/confusion - UTI/infection vs dementia vs. CVA. Tx of uti per pmd. Patient made npo, speech and swallow at bedside during this evaluation. patient with no swallowing difficulties with liquids, patient does not remember if she has had recent poor po intake. - CVA noted on head ct. not clear if acute or chronic. per nursing, spoke with radiology and infarct thought to be chronic/age-undetermined - would clarify. will check carotid u/s. Diastolic dysfunction with pHTN/RV dilation/depressed function and pedal edema - Has previosly diuresed well on home torsemide (patient not sure of medications and at most recent office visit was not sure if she was on 20 mg or 40 mg. Has chronic LE edema which has been slowly improving on torsemide. Patient with dry mucus membranes on exam, LE edema improved from baseline. CXR with stable congestive changes. Would stop IVF and resume home torsemide. close monitoring of weights, I/O's, bmp. - repeat echo here, RV more depressed, phtn has worsened. - mgm't of rvr as below. Afib - rate control with metoprolol, as outpatient. Here with RVR, but has not received av juancarlos blockade. Will start lopressor here, titrate up as needed. - has been off AC due to h/o GI bleed/duodenal ulcer. Was supposed to f/u with her GI doctor regarding safety of resuming AC, but patient had deferred. Was continued on aspirin alone. If CVA noted on head CT is thought to be acute/ subacute will need to have discussion with family/patient regarding risk benefit of starting AC. - for now, con't asa. clarify whether cva is old or new. - aggressive lyte repletion. k 2.9 Non-obstructive CAD, - no angina. ekg without ischemic changes. CE's intermediate elevation in setting of elevated CK from immobilization. Flat trend. No concern for ACS -con't ASA, hold statin while with ck elevation/borderline rhabdo. HTN, - borderline elevated. resuming lopressor as above. has not wanted to wean off clonidine in the past consider resuming home dose of 0.2 mg bid tomorrow if needed for bp. HL, - on atorvastatin 20 mg daily as outpatient. hold here for now while ck elevated. carotid atherosclerosis, - had not been interested in pursuing further imaging as outpatient. Here with question of cva. --> carotid u/s. - con't asa. holding statin for now as mentioned above.
[2017-07-04] MEDS ORDERED: KCL 10 MEQ IVPB 10 MEQ/100 ML INFUS.BAG IVPB SCH (16:15)
[2017-07-04] MEDS ORDERED: POTASSIUM CHLORIDE 30 MEQ in SODIUM CHLORIDE 300 ML IVPB ONE (16:30)
[2017-07-04] MEDS: METOPROLOL TARTRATE 50 MG TABLET (FP) PO SCH ×2 (16:31→21:24)
--- NOTE | 2017-07-04 16:34 | CONSULT ---
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: Yes: CVA, Other (h/o bifrontal craniotomies) Cardiovascular: Yes: AFIB, HTN, Hyperlipdemia Gastrointestinal: Yes: GI Bleed Rheumatology: Yes: Other (b/l knee pain) - Past Surgical History Past Surgical History: Yes: Craniotomy - Smoking History Smoking history: Never smoked Have you smoked in the past 12 months: No - Alcohol/Substance Use Hx Alcohol Use: No History - Admission Reason For Visit: URINARY TRACT INFECTION; FAILURE TO THRIVE - General Mental Status: Awake and Alert, Able to Follow Commands, Intermittently Confused Attention: Distractible Ability to Follow Directions: Fair Head/Neck Control: WFL Speech Evaluation - Communication Primary Language: NIUEAN - Speech Characteristics Voice Loudness: Normal Voice Pitch: Yes: Mildly High Nasal Resonance: Hypernasal Articulation: Yes: Precise Rate of Speech: Intact - Language/Auditory Comprehension Follows: Yes: 1 Stage Simple Commands - Swallow Evaluation/Bedside Assessment Current Nutritional Intake: NPO Oral Secretions: Yes: WFL Tracheostomy Present: No Patient on Ventilator: No Dentition: Yes: Edentulous Facial Symmetry at Rest: Symmetrical Facial Symmetry on Retraction: Symmetrical Sensation: Normal Jaw Position: Closed at Rest Pucker Lips: Normal Smile: Normal Lingual Movement: Normal Lingual Speed of Movement: Normal Lingual Movement Strgth Against Opposition: Normal Soft Palate Description: Normal Color Hard Palate Description: Normal Color Gag Reflex: Strong Bite Reflex: Absent Velopharyngeal Movement: Hypernasality Laryngeal Elevation: WFL Laryngeal Movement: Able to Palpate Rate of Intake: WFL Bolus Size: WFL Labial Seal: WFL Oral Prep Time: WFL A-P Transit: WFL Pocketing: None Timing of Swallow: Delayed Coughing/Throat Clear: No Change in Voice: No Recommendations - Dysphagia Impressions/Plan Dysphagia Impressions: Minimal Impairment Dysphagia Evaluation Summary: This 87 year old female is able to tolerate thin liquids, nectar and honey thickened liquids and purees without signs of aspiration. DISPATCH ASSOCIATE discussed with charge nurse, Lynda, on unit. - Recommendations Diet Consistency: Mechanical Soft Medication Administration: Crushed with applesauce Liquids: Thin Liquids
[2017-07-04] MEDS ORDERED: FUROSEMIDE 40 MG TABLET (FP) PO SCH (18:00)
--- NOTE | 2017-07-04 18:01 | HOSP ---
Subjective - Review of Symptoms Events since last encounter: Summoned by RHIANNON Howell to evaluate patient for afib with RVR, mild agitation and drop in oxygen saturation. Patient seen and examined. She denies chest pain, palpitations, SOB. Neuro: A&Ox 3. Vas [facility] 2018. CV: irregular, S1, S2 Pulm: diminished breath sounds Lower extremities: 3+ edema bilaterally, venous stasis changes Assessment & Plan Afib with RVR --rate has been in 140's, now in 120's after metoprolol IVP 5mg x 1 --patient not agitated at time of my exam; alert and responsive; family just arrived --satting 97% on 2.5L NC --received ~ 1.5L of IV fluids today and CXR yesterday shows congestive changes; stop IV fluids; give home dose torsemide 40mg now --will continue to monitor Physical Examination Vital Signs: Vital Signs Temperature 98.9 F 07/04/17 07:30 Pulse Rate 113 H 07/04/17 14:53 Respiratory Rate 18 07/04/17 14:53 Blood Pressure 156/71 07/04/17 14:53 O2 Sat by Pulse Oximetry (%) 100 07/04/17 14:53 Labs: CBC, BMP 07/04/17 08:10 07/04/17 08:10
[2017-07-04] MEDS ORDERED: POTASSIUM CHLORIDE TABS 10 MEQ TABLET.ER (FP) PO ONE (20:00)
[2017-07-04] MEDS: TORSEMIDE 20 MG TABLET (FP) PO SCH (20:20)
[2017-07-04] MEDS ORDERED: CEFTRIAXONE 1 G/50 ML PREMIX 50 ML IVPB ONE (21:00)
[2017-07-04] MEDS: CEFTRIAXONE 1 G/50 ML PREMIX 50 ML IVPB SCH (21:23)
[2017-07-04] MEDS ORDERED: METOPROLOL TARTRATE 5 MG/5 ML VIAL IVPUSH ONE (21:39)
--- NOTE | 2017-07-04 21:43 | HOSP ---
Subjective - Review of Symptoms Events since last encounter: Hospitalist Encounter Notified by RN that the patient is in Afib 140's Ordered Metoprolol 5mg IVP stat EKG- stat Trop I- stat Physical Examination Vital Signs: Vital Signs Temperature 99.2 F 07/04/17 20:14 Pulse Rate 102 H 07/04/17 20:14 Respiratory Rate 20 07/04/17 20:14 Blood Pressure 156/114 07/04/17 20:14 O2 Sat by Pulse Oximetry (%) 96 07/04/17 19:00 Labs: CBC, BMP 07/04/17 08:10 07/04/17 08:10
[2017-07-05 00:44] LABS: POTASSIUM 3.5 mmol/L (3.5-5.1)
[2017-07-05] MEDS ORDERED: METOPROLOL TARTRATE 5 MG/5 ML VIAL IVPUSH ONE (01:35)
[2017-07-05] MEDS: dilTIAZem HCL 50 MG/10 ML - 10 ML VIAL IVPUSH PRN ×4 (03:30→17:22)
[2017-07-05] MEDS: HEPARIN NA (PORCINE) 5,000 UNITS/ML 1ML VIAL SQ SCH ×3 (06:01→22:23)
[2017-07-05] MEDS: METOPROLOL TARTRATE 50 MG TABLET (FP) PO SCH (06:01)
[2017-07-05 08:28] LABS: BASO % 0.2 % (0-2.0); HEMATOCRIT 41.1 % (32.4-45.2); LYMPH % 15.7 % (8-40); MCH 28.5 pg (25.7-33.7); MCHC 31.6 g/dl (32.0-36.0); MEAN CELL VOLUME 90.1 fl (80-96); MEAN PLT VOLUME 9.3 fl (7.5-11.1); MONO % 10.5 % (3.8-10.2); NEUT % 73.6 % (42.8-82.8); PLATELET COUNT 266 K/MM3 (134-434); RBC 4.56 M/mm3 (3.60-5.2); RDW 16.1 % (11.6-15.6); WHITE BLOOD COUNT 14.5 K/mm3 (4.0-10.0)
[2017-07-05 08:43] LABS: ANION GAP 11 (8-16); BLOOD UREA NITROGEN 30 mg/dL (7-18); CHLORIDE 110 mmol/L (98-107); CO2 27 mmol/L (21-32); CREATININE 1.2 mg/dL (0.55-1.02); GLUCOSE,RANDOM 130 mg/dL (74-106); MAGNESIUM 1.8 mg/dL (1.8-2.4); PHOSPHOROUS 3.8 mg/dL (2.5-4.9); POTASSIUM 4.2 mmol/L (3.5-5.1); SODIUM 148 mmol/L (136-145)
--- NOTE | 2017-07-05 09:08 | PN ---
Physical Exam: SUBJECTIVE: Patient seen and examined. Pt denies cp, mild restlessness, HR runs 100-110's. OBJECTIVE: Vital Signs Period Temp Pulse Resp BP Sys/Polk Pulse Ox Last 24 Hr 97.7 F-99.2 F 102-144 18-24 116-170/69-118 96-100 GENERAL: The patient is awake, alert, but forgetful HEAD: Normal with no signs of trauma. EYES: PERRL, extraocular movements intact, sclera anicteric, conjunctiva clear. lower eyelids red with some drainage No ptosis. NECK: Trachea midline, full range of motion, supple. LUNGS: Bilateral rales with mild exp wheeze. no accessory muscle use. HEART: Irregular rhythm ABDOMEN: Soft, nontender, nondistended, normoactive bowel sounds, no guarding, no rebound, no hepatosplenomegaly, no masses. EXTREMITIES: 2+ pulses, warm, well-perfused, + edema, RLE with mild redness PSYCH: non-focal, forgetful SKIN: Warm, dry skin, no rashes or lesions noted, long toe nails( needs podiatry consult) Laboratory Results - last 24 hr 07/04/17 07/04/17 07/04/17 08:10 08:10 08:10 WBC RBC Hgb Hct MCV MCH MCHC RDW Plt Count MPV Neutrophils % Lymphocytes % Monocytes % Eosinophils % Basophils % Sodium 145 Potassium 2.9 L* Chloride 107 Carbon Dioxide 25 Anion Gap 13 BUN 25 H Creatinine 1.0 Creat Clearance w eGFR 52.33 Random Glucose 120 H Lactic Acid Calcium 8.7 Phosphorus 3.1 Magnesium 1.7 L Total Bilirubin 2.5 H GGT AST 50 H ALT 35 Alkaline Phosphatase 179 H Creatine Kinase 650 H Creatine Kinase Index 1.7 CK-MB (CK-2) 11.580 H Troponin I 0.11 H B-Natriuretic Peptide Total Protein 6.3 L Albumin 2.9 L Vitamin B12 763 TSH 0.47 RPR Titer Nonreactive 07/04/17 07/04/17 07/04/17 08:10 08:10 08:32 WBC RBC Hgb Hct MCV MCH MCHC RDW Plt Count MPV Neutrophils % Lymphocytes % Monocytes % Eosinophils % Basophils % Sodium Potassium Chloride Carbon Dioxide Anion Gap BUN Creatinine Creat Clearance w eGFR Random Glucose Lactic Acid 1.7 Calcium Phosphorus Magnesium Total Bilirubin GGT 106 H AST ALT Alkaline Phosphatase Creatine Kinase Creatine Kinase Index CK-MB (CK-2) Troponin I B-Natriuretic Peptide 2338.51 H Total Protein Albumin Vitamin B12 TSH RPR Titer 07/04/17 07/05/17 07/05/17 21:50 06:41 06:41 WBC 14.5 H RBC 4.56 Hgb 13.0 Hct 41.1 MCV 90.1 MCH 28.5 MCHC 31.6 L RDW 16.1 H Plt Count 266 MPV 9.3 Neutrophils % 73.6 Lymphocytes % 15.7 D Monocytes % 10.5 H Eosinophils % 0.0 D Basophils % 0.2 Sodium 148 H Potassium 3.5 D 4.2 Chloride 110 H Carbon Dioxide 27 Anion Gap 11 BUN 30 H Creatinine 1.2 H Creat Clearance w eGFR Random Glucose 130 H Lactic Acid Calcium 9.0 Phosphorus 3.8 D Magnesium 1.8 Total Bilirubin GGT AST ALT Alkaline Phosphatase Creatine Kinase Creatine Kinase Index CK-MB (CK-2) Troponin I 0.12 H B-Natriuretic Peptide Total Protein Albumin Vitamin B12 TSH RPR Titer Active Medications Generic Name Dose Route Start Last Admin Trade Name Freq PRN Reason Stop Dose Admin Aspirin 81 mg 07/05/17 10:00 Asa - PO DAILY [facility] Clotrimazole 1 applic 07/04/17 10:00 07/04/17 23:00 Lotrimin 1% Cream - TP 1 applic BID NOEMÍ Administration Diltiazem HCl 10 mg 07/05/17 03:19 07/05/17 07:30 Cardizem Injection - IVPUSH 10 mg Q4H PRN Administration HR OVER 130 Heparin Sodium (Porcine) 5,000 unit 07/04/17 06:00 07/05/17 06:01 Heparin - SQ 5,000 unit TID NOEMÍ Administration CEFTRIAXONE 1 G/50 ML PREMIX 50 mls @ 100 mls/hr 07/04/17 22:00 07/04/17 21: 23 Ceftriaxone 1 Gm-D5w Bag IVPB 100 mls/hr DAILY@2200 NOEMÍ Administration Metoprolol Tartrate 50 mg 07/04/17 16:15 07/05/17 06:01 Lopressor - PO 50 mg TID NOEMÍ Administration Pantoprazole Sodium 40 mg 07/04/17 10:00 07/04/17 11:29 Protonix - PO 40 mg DAILY NOEMÍ Administration Tobramycin/Dexamethasone 1 applic 07/04/17 10:00 07/04/17 23:35 Tobradex Ophthalmic Ointment - OU 1 appful BID NOEMÍ Administration Torsemide 40 mg 07/04/17 18:00 07/04/17 20:20 Demadex - PO 40 mg DAILY NOEMÍ Administration IMAGING CxR: Moderate cardiomegaly and mild venous congestion CT Head : No acute subarachnoid hemorrhage, reported non- hemorrhagic infarct, report discussed with radiologist Marquez, stated no acute changes when compared to previous MRI on September 2009. Echo 06/2017: nl lv fn. mod rve. rv sys function moderatly reduced. mod lae. mild-mod ant. 1+ mr. mod tr. sev phtn. trivial pericardial effusion. , ASSESSMENT/PLAN: * Sepsis secondary to UTI-as evidenced by UTI with tachycardia, AMS, hypoxia, and leukocytosis - will cotn on abx - ID following - BC negative - Urine culture positive for Non- lactose Fermenting GNB * Acute metabolic encephalopathy secondary to sepsis- improving slowly -continue antibiotics and hydration -speech therapy consulted for possible aspiration- rec mechanical soft diet with thin liquid * Elevated troponin-suspect stress induced from sepsis- denies cp - non- obstructive CAD - cardiology input appreciated -con ASA, hold statin while with ck elevation/borderline rhabdo. -no need for full anticoagulation at this time - *Atrial fibrillation, with RVR, likely secondary to infection - cardiology following - increased Toprol dose ot 100mg BID -off AC due to h/o GI bleed/duodenal ulcer. *HTN - BP stable - will monitor BP closely *Diastolic CHF - will cont on home dose torsemide. - daily weight - monitor I&O's *Blepharitis of both eyes -will continue tobradex *carotid atherosclerosis, - carotid u/s. - will cont on ASA,holding off statin in view of ck elevation/borderline rhabdo. Visit type - Emergency Visit Emergency Visit: Yes ED Registration Date: 07/03/17 Care time: The patient presented to the Emergency Department on the above date and was hospitalized for further evaluation of their emergent condition. - New Patient This patient is new to me today: Yes Date on this admission: 07/05/17 - Critical Care Critical Care patient: No
[2017-07-05] MEDS ORDERED: ALBUTEROL SO4 0.083% IH SOL 2.5 MG/3 ML VIAL.NEB. NEB PRN (09:09)
[2017-07-05] MEDS: TORSEMIDE 20 MG TABLET (FP) PO SCH (09:44)
[2017-07-05] MEDS: TOBRAMYCIN/DEXAMETHASONE OPHTH. OINTMENT 1 TUBE OU SCH ×2 (09:44→23:59)
[2017-07-05] MEDS: CLOTRIMAZOLE 1% CREAM 15 GM TUBE TP SCH ×2 (09:44→23:59)
[2017-07-05] MEDS: PANTOPRAZOLE 40 MG TABLET (FP) PO SCH (09:44)
[2017-07-05] MEDS: ASPIRIN 81 MG CHEWABLE TABLETS PO SCH (09:44)
--- NOTE | 2017-07-05 10:26 | PN ---
Progress Note (short form) - Note Progress Note: ID Ceftriaxone day 2 therapy antibiotics Afebrle and NAD Today she seem brighter and able to answer some questions Microbiology 07/04/17 03:00 Urine - Urine - Catheterized Legionella Antigen - Final 07/04/17 03:00 Urine - Urine - Catheterized Streptococcus pneumoniae Antigen (M - Final 07/03/17 21:20 Urine - Urine - Catheterized Urine Culture - Preliminary Non Lactose Fermenting Gnb 07/03/17 21:05 Blood - Peripheral Venous Blood Culture - Preliminary NO GROWTH OBTAINED AFTER 24 HOURS, INCUBATION TO CONTINUE FOR 4 DAYS. 07/03/17 21:05 Blood - Peripheral Venous Blood Culture - Preliminary NO GROWTH OBTAINED AFTER 24 HOURS, INCUBATION TO CONTINUE FOR 4 DAYS. Selected Entries 07/05/17 07:30 Temperature 99.1 F Pulse Rate 144 H Respiratory 20 Rate Blood Pressure 170/94 Laboratory Tests 07/03/17 07/03/17 07/05/17 21:05 21:20 06:41 WBC 16.5 H D 14.5 H Hgb 13.0 Hct 41.1 Plt Count 266 BUN Creatinine Urine WBC (Auto) 116 Urine RBC (Auto) 5 Urine Bacteria Many 07/05/17 06:41 WBC Hgb Hct Plt Count BUN 30 H Creatinine 1.2 H Urine WBC (Auto) Urine RBC (Auto) Urine Bacteria Assessment Rapid atrial fibrillation UTI with GNB Altered mental status Plan Continue antibiotic Cardiology F/U Await final c/s Oralia HOOD Problem List - Problems (1) Altered mental status Code(s): R41.82 - ALTERED MENTAL STATUS, UNSPECIFIED (2) UTI (urinary tract infection) Code(s): N39.0 - URINARY TRACT INFECTION, SITE NOT SPECIFIED Qualifiers: Urinary tract infection type: acute cystitis Hematuria presence: without hematuria Qualified Code(s): N30.00 - Acute cystitis without hematuria
[2017-07-05] MEDS: METOPROLOL SUCCINATE 100 MG TAB.SR.24H (FP) PO SCH ×2 (10:58→22:24)
--- NOTE | 2017-07-05 11:07 | PN ---
Progress Note (short form) - Note Progress Note: s: no cp sob palps dizzy o: Vital Signs Period Temp Pulse Resp BP Sys/Polk Pulse Ox Last 24 Hr 97.7 F-99.2 F 102-144 18-24 116-170/69-118 96-100 nad, calm jvd tds, neck supple alert and oriented x 2 ctab irregular, tachycardic 2/6 murmur at lsb + bs soft nt nd ext with trace edema, no cyanosis/clubbing chronic old venous stasis changes no jaundice, diaphoresis Current Medications Generic Name Dose Route Start Last Admin Trade Name Freq PRN Reason Stop Dose Admin Albuterol Sulfate 1 amp 07/05/17 09:09 Ventolin 0.083% Nebulizer Soln - NEB Q4H PRN SHORT OF BREATH/WHEEZING Aspirin 81 mg 07/05/17 10:00 07/05/17 09:44 Asa - PO 81 mg DAILY NOEMÍ Administration Clotrimazole 1 applic 07/04/17 10:00 07/05/17 09:44 Lotrimin 1% Cream - TP 1 applic BID NOEMÍ Administration Diltiazem HCl 10 mg 07/05/17 03:19 07/05/17 07:30 Cardizem Injection - IVPUSH 10 mg Q4H PRN Administration HR OVER 130 Heparin Sodium (Porcine) 5,000 unit 07/04/17 06:00 07/05/17 06:01 Heparin - SQ 5,000 unit TID NOEMÍ Administration CEFTRIAXONE 1 G/50 ML PREMIX 50 mls @ 100 mls/hr 07/04/17 22:00 07/04/17 21: 23 Ceftriaxone 1 Gm-D5w Bag IVPB 100 mls/hr DAILY@2200 NOEMÍ Administration Metoprolol Succinate 100 mg 07/05/17 10:00 07/05/17 10:58 Toprol Xl - PO 100 mg BID NOEMÍ Administration Pantoprazole Sodium 40 mg 07/04/17 10:00 07/05/17 09:44 Protonix - PO 40 mg DAILY NOEMÍ Administration Tobramycin/Dexamethasone 1 applic 07/04/17 10:00 07/05/17 09:44 Tobradex Ophthalmic Ointment - OU 1 appful BID NOEMÍ Administration Torsemide 40 mg 07/04/17 18:00 07/05/17 09:44 Demadex - PO 40 mg DAILY NOEMÍ Administration CBC, BMP 07/05/17 06:41 07/05/17 06:41 ekg: afib with pvc's. non-spec t wave ab. no acute ischemic changes. cxr: images and report reviewed. congestive changes, stable from prior. possible atelectasis/fluid at right base. head ct: non-hemorrhagic infarct rt occipital lobe (? age not clarified). s/p bifrontal craniotomies, midline partially calcified meningioma. lt frontal lobe vasogenic edema 2/2 meningioma (similar to 2010 MRI). echo 06/2017: nl lv fn. mod rve. rv sys function moderatly reduced. mod lae. mild-mod ant. 1+ mr. mod tr. sev phtn. trivial pericardial effusion. Echo 03/2016: afib. Low/nl EF 50-55% (beat to beat variability), mod PRETTY, mod RV dilation, bline dep RV fn. + MAC. 1+ /MR, Mod TR, mod pHTN (avg TR 42 mmHg ), tele: afib rvr cath 2005: LVEDP 18, EF 60%. pRCA mild, pLAD mild, mLAD 50-60%, pLCx mild, OM1 mild. a/p: 87 yo with h/o HTN, HL, afib (off AC in past due to GIB/duodenoal ulcer), diastolic chf, non-obstructive cad, carotid atherosclerosis, diet controlled dm , gout, likely early/mild dementia who p/w ams. AMS/weakness/confusion - UTI/infection vs dementia vs. CVA. Tx of uti per pmd. - CVA noted on head ct. not clear if acute or chronic. Diastolic dysfunction with pHTN/RV dilation/depressed function and pedal edema - Has previosly diuresed well on home torsemide (patient not sure of medications and at most recent office visit was not sure if she was on 20 mg or 40 mg. Has chronic LE edema which has been slowly improving on torsemide. Patient with dry mucus membranes on exam, LE edema improved from baseline. CXR with stable congestive changes. Continue home torsemide. close monitoring of weights, I/O's, bmp. - repeat echo here, RV more depressed, phtn has worsened. - mgm't of rvr as below. Afib - rate control with metoprolol, as outpatient. Here with RVR likely 2/2 sepsis. Will change to toprol 100 bid for better rate control. Cont tele. - has been off AC due to h/o GI bleed/duodenal ulcer. Was supposed to f/u with her GI doctor regarding safety of resuming AC, but patient had deferred. Was continued on aspirin alone. If CVA noted on head CT is thought to be acute/ subacute will need to have discussion with family/patient regarding risk benefit of starting AC. - for now, con't asa. Non-obstructive CAD, - no angina. ekg without ischemic changes. CE's intermediate elevation in setting of elevated CK from immobilization. Flat trend. No concern for ACS -con't ASA, hold statin while with ck elevation/borderline rhabdo. HTN, -cont toprol, monitor HL, - on atorvastatin 20 mg daily as outpatient. hold here for now while ck elevated. carotid atherosclerosis, - had not been interested in pursuing further imaging as outpatient. Here with question of cva. --> carotid u/s. - con't asa. holding statin for now as mentioned above.
--- NOTE | 2017-07-05 13:34 | EKG ---
Test Reason : Blood Pressure : / mmHG Vent. Rate : 125 BPM Atrial Rate : 357 BPM P-R Int : 000 ms QRS Dur : 094 ms QT Int : 352 ms P-R-T Axes : 000 081 140 degrees QTc Int : 508 ms POOR DATA QUALITY, INTERPRETATION MAY BE ADVERSELY AFFECTED ATRIAL FIBRILLATION WITH RAPID VENTRICULAR RESPONSE WITH PREMATURE VENTRICULAR OR ABERRANTLY CONDUCTED COMPLEXES ABNORMAL ECG WHEN COMPARED WITH ECG OF 04-JUL-2017 03:52, NO SIGNIFICANT CHANGE WAS FOUND Confirmed by CANDIE THOMPSON MD ([id number]) on 07/05/2017 1:33:52 PM Referred By: Confirmed By:CANDIE THOMPSON MD
[2017-07-05] MEDS: ACETAMINOPHEN 325 MG TABLET (FP) PO PRN (17:00)
[2017-07-05] MEDS: CEFTRIAXONE 1 G/50 ML PREMIX 50 ML IVPB SCH (22:23)
[2017-07-05] MEDS: DOCUSATE SODIUM 100 MG CAPSULE (FP) PO SCH (22:23)
[2017-07-05] MEDS ORDERED: PT OWN MED DRAWER 7, Y5N ONE ×2 (23:44→23:54)
[2017-07-06] MEDS: HEPARIN NA (PORCINE) 5,000 UNITS/ML 1ML VIAL SQ SCH ×3 (06:12→22:11)
[2017-07-06 07:14] LABS: HEMATOCRIT 38.3 % (32.4-45.2); HEMOGLOBIN 12.5 GM/dL (10.7-15.3); MCH 29.2 pg (25.7-33.7); MCHC 32.8 g/dl (32.0-36.0); MEAN CELL VOLUME 89.2 fl (80-96); MEAN PLT VOLUME 9.3 fl (7.5-11.1); PLATELET COUNT 241 K/MM3 (134-434); RBC 4.29 M/mm3 (3.60-5.2); RDW 15.8 % (11.6-15.6)
[2017-07-06 07:58] LABS: ALBUMIN 2.8 g/dl (3.4-5.0); ANION GAP 8 (8-16); BLOOD UREA NITROGEN 29 mg/dL (7-18); CALCIUM 8.3 mg/dL (8.5-10.1); CHLORIDE 107 mmol/L (98-107); CO2 30 mmol/L (21-32); CREATININE 1.2 mg/dL (0.55-1.02); GLUCOSE,RANDOM 106 mg/dL (74-106); POTASSIUM 3.1 mmol/L (3.5-5.1); SGOT/AST 39 U/L (15-37); SGPT/ALT 38 U/L (12-78); SODIUM 145 mmol/L (136-145)
[2017-07-06 07:59] LABS: ALK PHOS 167 U/L (45-117); BILIRUBIN,TOTAL 1.6 mg/dL (0.2-1.0); TOT PROT 6.2 g/dl (6.4-8.2)
--- NOTE | 2017-07-06 09:16 | PN ---
Physical Exam: SUBJECTIVE: Patient seen and examined at bedside. OBJECTIVE: Vital Signs Period Temp Pulse Resp BP Sys/Polk Pulse Ox Last 24 Hr 97.8 F-99.8 F 104-147 20-26 152-161/78-114 95-97 GENERAL: The patient is awake, alert, and fully oriented, in no acute distress. EYES: bilateral blepharitis LUNGS: Breath sounds equal, clear to auscultation bilaterally, no wheezes, no crackles, no accessory muscle use. HEART: Irregular, S1, S2 ABDOMEN: Soft, nontender, nondistended, normoactive bowel sounds, no guarding, no rebound EXTREMITIES: 2+ pulses, warm, well-perfused, no edema. B/L lower extremity venous stasis changes NEUROLOGICAL: Cranial nerves II through XII grossly intact. Normal speech Laboratory Results - last 24 hr 07/06/17 07/06/17 06:17 06:17 WBC 12.0 H RBC 4.29 Hgb 12.5 Hct 38.3 MCV 89.2 MCH 29.2 MCHC 32.8 RDW 15.8 H Plt Count 241 MPV 9.3 Sodium 145 Potassium 3.1 L D Chloride 107 Carbon Dioxide 30 Anion Gap 8 BUN 29 H Creatinine 1.2 H Creat Clearance w eGFR 42.40 Random Glucose 106 Calcium 8.3 L Total Bilirubin 1.6 H D AST 39 H D ALT 38 Alkaline Phosphatase 167 H Total Protein 6.2 L Albumin 2.8 L Active Medications Generic Name Dose Route Start Last Admin Trade Name Freq PRN Reason Stop Dose Admin Acetaminophen 650 mg 07/05/17 16:17 07/05/17 17:00 Tylenol - PO 650 mg Q4H PRN Administration FEVER OR PAIN Albuterol Sulfate 1 amp 07/05/17 09:09 07/05/17 10:50 Ventolin 0.083% Nebulizer Soln - NEB 1 amp Q4H PRN Administration SHORT OF BREATH/WHEEZING Aspirin 81 mg 07/05/17 10:00 07/05/17 09:44 Asa - PO 81 mg DAILY NOEMÍ Administration Clotrimazole 1 applic 07/04/17 10:00 07/05/17 23:59 Lotrimin 1% Cream - TP 1 applic BID NOEMÍ Administration Diltiazem HCl 10 mg 07/05/17 03:19 07/05/17 17:22 Cardizem Injection - IVPUSH 10 mg Q4H PRN Administration HR OVER 130 Diltiazem HCl 180 mg 07/05/17 15:30 07/05/17 22:23 Cardizem Cd - PO 180 mg BID NOEMÍ Administration Docusate Sodium 100 mg 07/05/17 22:00 07/05/17 22:23 Colace - PO 100 mg BID NOEMÍ Administration Heparin Sodium (Porcine) 5,000 unit 07/04/17 06:00 07/06/17 06:12 Heparin - SQ 5,000 unit TID NOEMÍ Administration CEFTRIAXONE 1 G/50 ML PREMIX 50 mls @ 100 mls/hr 07/04/17 22:00 07/05/17 22: 23 Ceftriaxone 1 Gm-D5w Bag IVPB 100 mls/hr DAILY@2200 NOEMÍ Administration Metoprolol Succinate 100 mg 07/05/17 10:00 07/05/17 22:24 Toprol Xl - PO 100 mg BID NOEMÍ Administration Pantoprazole Sodium 40 mg 07/04/17 10:00 07/05/17 09:44 Protonix - PO 40 mg DAILY NOEMÍ Administration Tobramycin/Dexamethasone 1 applic 07/04/17 10:00 07/05/17 23:59 Tobradex Ophthalmic Ointment - OU 1 appful BID NOEMÍ Administration Torsemide 40 mg 07/04/17 18:00 07/05/17 09:44 Demadex - PO 40 mg DAILY NOEMÍ Administration ASSESSMENT/PLAN 87 year-old female with a PMH significant for HTN, HLD, diastolic heart failure , afib (not on a/c, h/o GI bleed), non-obstructive CAD, carotid artery disease, NIDDM, gout, and dementia. Presented with AMS. AMS, improved --likely multifactorial: UTI, dementia, CVA CVA --07/04 CT head: nonhemorrhagic infarct right occipital lobe, likely old --consider MRI --continue ASA Enterobacter UTI --continue ceftriaxone (day #3) Diastolic heart failure --continue torsemide Atrial fibrillation --better rate-control today --continue Toprol XL, diltiazem CD --has not been on anti-coagulation due to h/o GI bleed; will need to resolve GI issues as well as neuro issue (acute/subacute infarct) prior to restarting anticoagulation --continue ASA only for now Non-obstructive coronary artery disease Carotid artery disease --flat-trending troponins, cardiology not concerned for ACS --continue ASA, hold statin Hypertension --improved --continue Toprol XL and diltiazem CD Hyperlipidemia --hold statin due to elevation in CPK Carotid artery disease --continue ASA, hold statin Hypokalemia --repleted Blepharitis --Tobradex eye drops FEN Fluids: PO intake adequate Electrolytes: replete as indicated Nutrition: mechanical soft, thin liquids Physical therapy evaluation DVT prophylaxis: subq heparin, oob, ambulation Dispo: continues to require inapatient care Visit type - Emergency Visit Emergency Visit: Yes ED Registration Date: 07/03/17 Care time: The patient presented to the Emergency Department on the above date and was hospitalized for further evaluation of their emergent condition. - New Patient This patient is new to me today: Yes Date on this admission: 07/06/17 - Critical Care Critical Care patient: No
[2017-07-06] MEDS: ASPIRIN 81 MG CHEWABLE TABLETS PO SCH (09:29)
[2017-07-06] MEDS: DOCUSATE SODIUM 100 MG CAPSULE (FP) PO SCH ×2 (09:29→22:11)
[2017-07-06] MEDS: TORSEMIDE 20 MG TABLET (FP) PO SCH (09:29)
[2017-07-06] MEDS: METOPROLOL SUCCINATE 100 MG TAB.SR.24H (FP) PO SCH ×2 (09:29→22:11)
[2017-07-06] MEDS: PANTOPRAZOLE 40 MG TABLET (FP) PO SCH (09:29)
[2017-07-06] MEDS: TOBRAMYCIN/DEXAMETHASONE OPHTH. OINTMENT 1 TUBE OU SCH ×2 (09:30→22:13)
[2017-07-06] MEDS: CLOTRIMAZOLE 1% CREAM 15 GM TUBE TP SCH ×2 (09:30→22:13)
--- NOTE | 2017-07-06 10:06 | PN ---
Progress Note (short form) - Note Progress Note: ID Day 3 antibiotics Selected Entries 07/06/17 09:00 Temperature 98.4 F Pulse Rate 101 H Respiratory 20 Rate Blood Pressure 131/48 Microbiology 07/04/17 03:00 Urine - Urine - Catheterized Legionella Antigen - Final 07/04/17 03:00 Urine - Urine - Catheterized Streptococcus pneumoniae Antigen (M - Final 07/03/17 21:20 Urine - Urine - Catheterized Urine Culture - Final Enterobacter Cloacae 07/03/17 21:05 Blood - Peripheral Venous Blood Culture - Preliminary NO GROWTH OBTAINED AFTER 48 HOURS, INCUBATION TO CONTINUE FOR 3 DAYS. 07/03/17 21:05 Blood - Peripheral Venous Blood Culture - Preliminary NO GROWTH OBTAINED AFTER 48 HOURS, INCUBATION TO CONTINUE FOR 3 DAYS. Laboratory Tests 07/03/17 07/03/17 07/06/17 21:05 21:20 06:17 WBC 16.5 H D 12.0 H Hgb 12.5 Plt Count 241 BUN Creatinine Urine WBC (Auto) 116 Urine RBC (Auto) 5 Urine Bacteria Many 07/06/17 06:17 WBC Hgb Plt Count BUN 29 H Creatinine 1.2 H Urine WBC (Auto) Urine RBC (Auto) Urine Bacteria Assessment Enterobacter UTI pansensitive Plan Continue current therapy Tomorrow switch to med antibiotic Keflex good Problem List - Problems (1) Altered mental status Code(s): R41.82 - ALTERED MENTAL STATUS, UNSPECIFIED (2) UTI (urinary tract infection) Code(s): N39.0 - URINARY TRACT INFECTION, SITE NOT SPECIFIED Qualifiers: Urinary tract infection type: acute cystitis Hematuria presence: without hematuria Qualified Code(s): N30.00 - Acute cystitis without hematuria
[2017-07-06] MEDS: ACETAMINOPHEN 325 MG TABLET (FP) PO PRN ×2 (10:50→18:20)
--- NOTE | 2017-07-06 10:59 | PN ---
Progress Note (short form) - Note Progress Note: s: no cp sob palps dizzy o: Vital Signs Period Temp Pulse Resp BP Sys/Polk Pulse Ox Last 24 Hr 97.8 F-99.8 F 101-147 20-26 131-161/48-102 95 nad, calm jvd tds, neck supple alert and oriented x 2 ctab irregular, tachycardic 2/6 murmur at lsb + bs soft nt nd ext with trace edema, no cyanosis/clubbing chronic old venous stasis changes no jaundice, diaphoresis Current Medications Generic Name Dose Route Start Last Admin Trade Name Freq PRN Reason Stop Dose Admin Acetaminophen 650 mg 07/05/17 16:17 07/06/17 10:50 Tylenol - PO 650 mg Q4H PRN Administration FEVER OR PAIN Albuterol Sulfate 1 amp 07/05/17 09:09 07/05/17 10:50 Ventolin 0.083% Nebulizer Soln - NEB 1 amp Q4H PRN Administration SHORT OF BREATH/WHEEZING Aspirin 81 mg 07/05/17 10:00 07/06/17 09:29 Asa - PO 81 mg DAILY NOEMÍ Administration Clotrimazole 1 applic 07/04/17 10:00 07/06/17 09:30 Lotrimin 1% Cream - TP 1 applic BID NOEMÍ Administration Diltiazem HCl 10 mg 07/05/17 03:19 07/05/17 17:22 Cardizem Injection - IVPUSH 10 mg Q4H PRN Administration HR OVER 130 Diltiazem HCl 180 mg 07/05/17 15:30 07/06/17 09:29 Cardizem Cd - PO 180 mg BID NOEMÍ Administration Docusate Sodium 100 mg 07/05/17 22:00 07/06/17 09:29 Colace - PO 100 mg BID NOEMÍ Administration Heparin Sodium (Porcine) 5,000 unit 07/04/17 06:00 07/06/17 06:12 Heparin - SQ 5,000 unit TID NOEMÍ Administration CEFTRIAXONE 1 G/50 ML PREMIX 50 mls @ 100 mls/hr 07/04/17 22:00 07/05/17 22: 23 Ceftriaxone 1 Gm-D5w Bag IVPB 100 mls/hr DAILY@2200 NOEMÍ Administration Metoprolol Succinate 100 mg 07/05/17 10:00 01/07/18 09:29 Toprol Xl - PO 100 mg BID NOEMÍ Administration Pantoprazole Sodium 40 mg 07/04/17 10:00 07/06/17 09:29 Protonix - PO 40 mg DAILY NOEMÍ Administration Tobramycin/Dexamethasone 1 applic 07/04/17 10:00 07/06/17 09:30 Tobradex Ophthalmic Ointment - OU 1 appful BID NOEMÍ Administration Torsemide 40 mg 07/04/17 18:00 07/06/17 09:29 Demadex - PO 40 mg DAILY NOEMÍ Administration CBC, BMP 07/06/17 06:17 07/06/17 06:17 ekg: afib with pvc's. non-spec t wave ab. no acute ischemic changes. cxr: images and report reviewed. congestive changes, stable from prior. possible atelectasis/fluid at right base. head ct: non-hemorrhagic infarct rt occipital lobe (? age not clarified). s/p bifrontal craniotomies, midline partially calcified meningioma. lt frontal lobe vasogenic edema 2/2 meningioma (similar to 2010 MRI). echo 06/2017: nl lv fn. mod rve. rv sys function moderatly reduced. mod lae. mild-mod ant. 1+ mr. mod tr. sev phtn. trivial pericardial effusion. Echo 03/2016: afib. Low/nl EF 50-55% (beat to beat variability), mod PRETTY, mod RV dilation, bline dep RV fn. + MAC. 1+ /MR, Mod TR, mod pHTN (avg TR 42 mmHg ), tele: afib, rate controlled cath 2005: LVEDP 18, EF 60%. pRCA mild, pLAD mild, mLAD 50-60%, pLCx mild, OM1 mild. a/p: 87 yo with h/o HTN, HL, afib (off AC in past due to GIB/duodenoal ulcer), diastolic chf, non-obstructive cad, carotid atherosclerosis, diet controlled dm , gout, likely early/mild dementia who p/w ams. AMS/weakness/confusion - UTI/infection vs dementia vs. CVA. Tx of uti per pmd. - CVA noted on head ct. not clear if acute or chronic. Diastolic dysfunction with pHTN/RV dilation/depressed function and pedal edema - Has previosly diuresed well on home torsemide (patient not sure of medications and at most recent office visit was not sure if she was on 20 mg or 40 mg. Has chronic LE edema which has been slowly improving on torsemide. Patient with dry mucus membranes on exam, LE edema improved from baseline. CXR with stable congestive changes. Continue home torsemide. close monitoring of weights, I/O's, bmp. - repeat echo here, RV more depressed, phtn has worsened. - mgm't of rvr as below. Afib - rate control with metoprolol, as outpatient. Here with RVR likely 2/2 sepsis. Have needed to titrate/adjust rate meds here, currently on toprol 100 bid and dilt 180 bid with improved rate control, monitor on tele with this regimen for now. - has been off AC due to h/o GI bleed/duodenal ulcer. Was supposed to f/u with her GI doctor regarding safety of resuming AC, but patient had deferred. Was continued on aspirin alone. If CVA noted on head CT is thought to be acute/ subacute will need to have discussion with family/patient regarding risk benefit of starting AC. - for now, con't asa. Non-obstructive CAD, - no angina. ekg without ischemic changes. CE's intermediate elevation in setting of elevated CK from immobilization. Flat trend. No concern for ACS -con't ASA, hold statin while with ck elevation/borderline rhabdo. HTN: -improved on current meds HL, - on atorvastatin 20 mg daily as outpatient. hold here for now while ck elevated. carotid atherosclerosis, - had not been interested in pursuing further imaging as outpatient. Here with question of cva. --> carotid u/s. - con't asa. holding statin for now as mentioned above.
[2017-07-06] MEDS: POTASSIUM CHLORIDE TABS 20 MEQ TABLET.ER (FP) PO SCH ×2 (13:54→18:19)
[2017-07-06] MEDS: CEFTRIAXONE 1 G/50 ML PREMIX 50 ML IVPB SCH (22:12)
[2017-07-07] MEDS: HEPARIN NA (PORCINE) 5,000 UNITS/ML 1ML VIAL SQ SCH ×3 (06:24→21:32)
--- NOTE | 2017-07-07 09:28 | PN ---
Progress Note, Physician Chief Complaint: altered MS History of Present Illness: very sleepy at present. opens eyes and offers brief responses. denies sob, palpitations, cp, dizzy no cigs - Current Medication List Current Medications: Active Medications Acetaminophen (Tylenol -) 650 mg PO Q4H PRN PRN Reason: FEVER OR PAIN Last Admin: 07/06/17 18:20 Dose: 650 mg Albuterol Sulfate (Ventolin 0.083% Nebulizer Soln -) 1 amp NEB Q4H PRN PRN Reason: SHORT OF BREATH/WHEEZING Last Admin: 07/05/17 10:50 Dose: 1 amp Aspirin (Asa -) 81 mg PO DAILY [facility] Last Admin: 07/06/17 09:29 Dose: 81 mg Clotrimazole (Lotrimin 1% Cream -) 1 applic TP BID [facility] Last Admin: 07/06/17 22:13 Dose: 1 applic Diltiazem HCl (Cardizem Injection -) 10 mg IVPUSH Q4H PRN PRN Reason: HR OVER 130 Last Admin: 07/05/17 17:22 Dose: 10 mg Diltiazem HCl (Cardizem Cd -) 180 mg PO BID [facility] Last Admin: 07/06/17 22:11 Dose: 180 mg Docusate Sodium (Colace -) 100 mg PO BID [facility] Last Admin: 07/06/17 22:11 Dose: 100 mg Heparin Sodium (Porcine) (Heparin -) 5,000 unit SQ TID [facility] Last Admin: 07/07/17 06:24 Dose: 5,000 unit CEFTRIAXONE 1 G/50 ML PREMIX (Ceftriaxone 1 Gm-D5w Bag) 50 mls @ 100 mls/hr IVPB DAILY@2200 [facility] Last Admin: 07/06/17 22:12 Dose: 100 mls/hr Metoprolol Succinate (Toprol Xl -) 100 mg PO BID [facility] Last Admin: 07/06/17 22:11 Dose: 100 mg Pantoprazole Sodium (Protonix -) 40 mg PO DAILY [facility] Last Admin: 07/06/17 09:29 Dose: 40 mg Tobramycin/Dexamethasone (Tobradex Ophthalmic Ointment -) 1 applic OU BID [facility] Last Admin: 07/06/17 22:13 Dose: 1 appful Torsemide (Demadex -) 40 mg PO DAILY [facility] Last Admin: 07/06/17 09:29 Dose: 40 mg - Objective Vital Signs: Vital Signs Temperature 98.8 F 07/07/17 01:00 Pulse Rate 98 H 07/07/17 05:00 Respiratory Rate 20 07/07/17 05:00 Blood Pressure 148/74 07/07/17 05:00 O2 Sat by Pulse Oximetry (%) 97 07/06/17 21:00 Constitutional: Yes: No Distress, Calm Eyes: No: Sclera Icterus HENT: No: Nasal Congestion Cardiovascular: Yes: Pulse Irregular, S1, S2, Other (PMI non diplaced). No: JVD (in chair), Gallop, Murmur Respiratory: Yes: CTA Bilaterally (decr diffusely). No: Accessory Muscle Use, Rales, Wheezes Gastrointestinal: Yes: Normal Bowel Sounds, Soft. No: Tenderness Musculoskeletal: Yes: Other (No kyphosis) Extremities: No: Cold Edema: No Integumentary: No: Jaundice Neurological: Yes: Lethargy. No: Seizure Psychiatric: No: Agitated Labs: CBC, BMP 07/06/17 06:17 07/06/17 06:17 INR, PTT INR 1.31 (0.82-1.09) H 07/03/17 21:05 - ....Imaging EKG: Other (tele: afib HRs 70s-90s) Assessment/Plan ekg: afib with pvc's. non-spec t wave ab. no acute ischemic changes. cxr: images and report reviewed. congestive changes, stable from prior. possible atelectasis/fluid at right base. head ct: non-hemorrhagic infarct rt occipital lobe (? age not clarified). s/p bifrontal craniotomies, midline partially calcified meningioma. lt frontal lobe vasogenic edema 2/2 meningioma (similar to 2010 MRI). Echo 06/2017: nl lv fn. mod rve. rv sys function moderately reduced. mod lae. mild-mod ant. 1+ mr. mod tr. sev phtn. trivial pericardial effusion. Echo 03/2016: afib. Low/nl EF 50-55% (beat to beat variability), mod PRETTY, mod RV dilation, bline dep RV fn. + MAC. 1+ /MR, Mod TR, mod pHTN (avg TR 42 mmHg ), tele: afib, rate controlled cath 2005: LVEDP 18, EF 60%. pRCA mild, pLAD mild, mLAD 50-60%, pLCx mild, OM1 mild. CT head: R occipital lobe infarct, likely old a/p: 87 yo with h/o HTN, HL, afib (off AC in past due to GIB/duodenoal ulcer), diastolic chf, non-obstructive cad, carotid atherosclerosis, diet controlled dm , gout, likely early/mild dementia who p/w ams. AMS/weakness/confusion - UTI/infection vs dementia - UTI being treated - no acute pathology on CT head here Diastolic dysfunction with pHTN/RV dilation/depressed function and pedal edema - Has previosly diuresed well on home torsemide (patient not sure of medications and at most recent office visit was not sure if she was on 20 mg or 40 mg. Has chronic LE edema which had improved of late on torsemide. - CXR here with stable congestive changes. no sob, no edema. - Continue home torsemide. close monitoring of weights, I/O's, bmp. - repeat echo here, RV more depressed, phtn has worsened. - long-term, she is likely to have progressive RV dysfunction and poor clinical course unless possibly if she is aggressively diuresed as outpatient and alternate causes of pulm HTN are worked up and treated as indicated--defer to outpt cardio f/u - digoxin for RV inotropy, as below - consider add spironolactone as outpt, if cannot tolerate higher doses torsemide Afib - rate controlled with metoprolol, as outpatient. Here with RVR likely 2/2 sepsis. Have needed to titrate/adjust rate meds here, currently on toprol 100 bid and dilt 180 bid with improved rate control - would minimize dose of diltiazem to avoid negative RV inotropic effects, possibly d/c eventually if possible. - decrease to 180 qd, add digoxin (also for RV inotropic effect), for now-- monitor tele. f/u dig levels daily for now - could consider AVN ablation/PM later (vs amio) for HR control, if suboptimal - has been off AC due to h/o GI bleed/duodenal ulcer. Was supposed to f/u with her GI doctor regarding safety of resuming AC, but patient had deferred. Was continued on aspirin alone. chronic ischemic infarct noted on CT here--does not accutely affect mgmt. - pt needs outpt cardio f/u and re-discussion of R/B of AC, to see if she is now willing to pursue definitive GIB w/u. consider discussion of LA appendage closure (Watchman) at that time, if not previously discussed. - for now, con't asa. Non-obstructive CAD, - no angina. ekg without ischemic changes. CE's intermediate elevation in setting of elevated CK from immobilization. Flat trend. No concern for ACS -con't ASA, hold statin while with ck elevation/borderline rhabdo. HTN: -not well controlled, with bp's frequently to 150s/110s here -add valsartan 320 qd HL, - on atorvastatin 20 mg daily as outpatient. hold here for now while ck elevated. carotid atherosclerosis, - declined further imaging w/u as outpt - no acute CVA suspected here - con't asa. holding statin for now as mentioned above.
[2017-07-07] MEDS: ASPIRIN 81 MG CHEWABLE TABLETS PO SCH (10:23)
[2017-07-07] MEDS: DOCUSATE SODIUM 100 MG CAPSULE (FP) PO SCH ×2 (10:23→21:32)
[2017-07-07] MEDS: VALSARTAN 160 MG TABLET (UD) PO SCH (10:24)
[2017-07-07] MEDS: CLOTRIMAZOLE 1% CREAM 15 GM TUBE TP SCH ×2 (10:24→21:33)
[2017-07-07] MEDS: PANTOPRAZOLE 40 MG TABLET (FP) PO SCH (10:24)
[2017-07-07] MEDS: METOPROLOL SUCCINATE 100 MG TAB.SR.24H (FP) PO SCH ×2 (10:24→21:33)
[2017-07-07] MEDS: TORSEMIDE 20 MG TABLET (FP) PO SCH (10:24)
--- NOTE | 2017-07-07 11:37 | PN ---
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 Selected Entries 07/06/17 07/06/17 07/06/17 00:53 05:00 09:00 Breakfast Temperature 98.4 F 98.4 F 98.7 F 07/06/17 07/06/17 07/06/17 10:00 10:42 12:02 Breakfast 75% 75% Temperature 99.6 F 07/06/17 07/06/17 07/06/17 14:00 17:00 21:00 Breakfast Temperature 99.3 F 99.6 F 97.4 F L 07/07/17 07/07/17 01:00 11:30 Breakfast 75% Temperature 98.8 F Laboratory Tests 07/03/17 07/04/17 07/05/17 21:05 08:10 06:41 WBC 16.5 H D 15.1 H 14.5 H 07/06/17 06:17 WBC 12.0 H Pt feeds herself.
--- NOTE | 2017-07-07 11:50 | PN ---
Progress Note, Physician Chief Complaint: Ms Fajardo is lethargic today. Opens her eyes to voice but today does not respond. - Current Medication List Current Medications: Active Medications Acetaminophen (Tylenol -) 650 mg PO Q4H PRN PRN Reason: FEVER OR PAIN Last Admin: 07/06/17 18:20 Dose: 650 mg Albuterol Sulfate (Ventolin 0.083% Nebulizer Soln -) 1 amp NEB Q4H PRN PRN Reason: SHORT OF BREATH/WHEEZING Last Admin: 07/05/17 10:50 Dose: 1 amp Aspirin (Asa -) 81 mg PO DAILY [facility] Last Admin: 07/07/17 10:23 Dose: 81 mg Cephalexin HCl (Keflex -) 500 mg PO BID [facility] Clotrimazole (Lotrimin 1% Cream -) 1 applic TP BID [facility] Last Admin: 07/07/17 10:24 Dose: 1 applic Digoxin (Lanoxin -) 0.25 mg PO DAILY [facility] Diltiazem HCl (Cardizem Injection -) 10 mg IVPUSH Q4H PRN PRN Reason: HR OVER 130 Last Admin: 07/05/17 17:22 Dose: 10 mg Diltiazem HCl (Cardizem Cd -) 180 mg PO DAILY [facility] Docusate Sodium (Colace -) 100 mg PO BID [facility] Last Admin: 07/07/17 10:23 Dose: 100 mg Heparin Sodium (Porcine) (Heparin -) 5,000 unit SQ TID [facility] Last Admin: 07/07/17 06:24 Dose: 5,000 unit Metoprolol Succinate (Toprol Xl -) 100 mg PO BID [facility] Last Admin: 07/07/17 10:24 Dose: 100 mg Pantoprazole Sodium (Protonix -) 40 mg PO DAILY [facility] Last Admin: 07/07/17 10:24 Dose: 40 mg Tobramycin/Dexamethasone (Tobradex Ophthalmic Ointment -) 1 applic OU BID [facility] Last Admin: 07/06/17 22:13 Dose: 1 appful Torsemide (Demadex -) 40 mg PO DAILY [facility] Last Admin: 07/07/17 10:24 Dose: 40 mg Valsartan (Diovan -) 320 mg PO DAILY [facility] Last Admin: 07/07/17 10:24 Dose: 320 mg - Objective Vital Signs: Vital Signs Temperature 37.1 C 07/07/17 01:00 Pulse Rate 98 H 01/08/18 05:00 Respiratory Rate 20 07/07/17 05:00 Blood Pressure 148/74 07/07/17 05:00 O2 Sat by Pulse Oximetry (%) 97 07/06/17 21:00 Constitutional: Yes: No Distress, Obese, Other (lethargic) Eyes: Yes: Other (bilateral blepharitis, improved) Cardiovascular: Yes: Pulse Irregular. No: Tachycardia, Gallop, Murmur, Rub Respiratory: Yes: Regular, CTA Bilaterally. No: Rales, Rhonchi, Wheezes Gastrointestinal: Yes: Normal Bowel Sounds, Soft. No: Distention, Tenderness Extremities: Yes: WNL Edema: No Labs: CBC, BMP 07/06/17 06:17 07/06/17 06:17 INR, PTT INR 1.31 (0.82-1.09) H 07/03/17 21:05 Problem List - Problems (1) UTI (urinary tract infection) Code(s): N39.0 - URINARY TRACT INFECTION, SITE NOT SPECIFIED Qualifiers: Urinary tract infection type: acute cystitis Hematuria presence: without hematuria Qualified Code(s): N30.00 - Acute cystitis without hematuria (2) Acute metabolic encephalopathy Code(s): G93.41 - METABOLIC ENCEPHALOPATHY (3) Sepsis Code(s): A41.9 - SEPSIS, UNSPECIFIED ORGANISM (4) Elevated troponin Code(s): R74.8 - ABNORMAL LEVELS OF OTHER SERUM ENZYMES (5) Atrial fibrillation Code(s): I48.91 - UNSPECIFIED ATRIAL FIBRILLATION Qualifiers: Atrial fibrillation type: paroxysmal Qualified Code(s): I48.0 - Paroxysmal atrial fibrillation (6) HTN (hypertension) Code(s): I10 - ESSENTIAL (PRIMARY) HYPERTENSION (7) Diastolic CHF Code(s): I50.30 - UNSPECIFIED DIASTOLIC (CONGESTIVE) HEART FAILURE Qualifiers: Congestive heart failure chronicity: chronic Qualified Code(s): I50.32 - Chronic diastolic (congestive) heart failure (8) Blepharitis of both eyes Code(s): H01.003 - UNSPECIFIED BLEPHARITIS RIGHT EYE, UNSPECIFIED EYELID; H01.006 - UNSPECIFIED BLEPHARITIS LEFT EYE, UNSPECIFIED EYELID Qualifiers: Blepharitis type: squamous Eyelid: both upper and lower Qualified Code(s) : H01.021 - Squamous blepharitis right upper eyelid; H01.022 - Squamous blepharitis right lower eyelid; H01.022 - Squamous blepharitis right lower eyelid; H01.024 - Squamous blepharitis left upper eyelid; H01.024 - Squamous blepharitis left upper eyelid; H01.025 - Squamous blepharitis left lower eyelid ; H01.025 - Squamous blepharitis left lower eyelid Assessment/Plan (1) UTI (urinary tract infection) Assessment/Plan: -case d/w ID -change to keflex today Code(s): N39.0 - URINARY TRACT INFECTION, SITE NOT SPECIFIED Qualifiers: Urinary tract infection type: acute cystitis Hematuria presence: without hematuria Qualified Code(s): N30.00 - Acute cystitis without hematuria (2) Acute metabolic encephalopathy Assessment/Plan: -patient very lethargic -CVA noted on CT scan read, most likely chronic and not acute -will consult neurology to evaluate and possible MRI Code(s): G93.41 - METABOLIC ENCEPHALOPATHY (3) Sepsis Assessment/Plan: -resolving -continue antibiotics as above Code(s): A41.9 - SEPSIS, UNSPECIFIED ORGANISM (4) Elevated troponin Assessment/Plan: -appreciate cardiology assistance and case discussed Code(s): R74.8 - ABNORMAL LEVELS OF OTHER SERUM ENZYMES (5) Atrial fibrillation Assessment/Plan: -treat underlying sepsis -cardiology consulted and will follow up recommendations Code(s): I48.91 - UNSPECIFIED ATRIAL FIBRILLATION Qualifiers: Atrial fibrillation type: paroxysmal Qualified Code(s): I48.0 - Paroxysmal atrial fibrillation (6) HTN (hypertension) Assessment/Plan: -continue current regimen -slightly elevated -will obtain outpatient records, evaluate if still on clonidine as an outpatient Code(s): I10 - ESSENTIAL (PRIMARY) HYPERTENSION (7) Diastolic CHF Assessment/Plan: -not in exacerbation -continue torsemide Code(s): I50.30 - UNSPECIFIED DIASTOLIC (CONGESTIVE) HEART FAILURE Qualifiers: Congestive heart failure chronicity: chronic Qualified Code(s): I50.32 - Chronic diastolic (congestive) heart failure (8) Blepharitis of both eyes Assessment/Plan: -continue tobradex -improved Code(s): H01.003 - UNSPECIFIED BLEPHARITIS RIGHT EYE, UNSPECIFIED EYELID; H01.006 - UNSPECIFIED BLEPHARITIS LEFT EYE, UNSPECIFIED EYELID Qualifiers: Blepharitis type: squamous Eyelid: both upper and lower Qualified Code(s) : H01.021 - Squamous blepharitis right upper eyelid; H01.022 - Squamous blepharitis right lower eyelid; H01.022 - Squamous blepharitis right lower eyelid; H01.024 - Squamous blepharitis left upper eyelid; H01.024 - Squamous blepharitis left upper eyelid; H01.025 - Squamous blepharitis left lower eyelid ; H01.025 - Squamous blepharitis left lower eyelid
[2017-07-07] MEDS ORDERED: PT OWN MED DRAWER 7, Y5N ONE (11:56)
[2017-07-07] MEDS: TOBRAMYCIN/DEXAMETHASONE OPHTH. OINTMENT 1 TUBE OU SCH ×2 (11:57→21:33)
[2017-07-07] MEDS: DIGOXIN 0.25 MG TABLET (FP) PO SCH (12:05)
[2017-07-07] MEDS: ACETAMINOPHEN 325 MG TABLET (FP) PO PRN (21:32)
[2017-07-07] MEDS: CEPHALEXIN MONOHYDRATE 500 MG CAPSULE (UD) PO SCH (21:33)
[2017-07-08] MEDS: HEPARIN NA (PORCINE) 5,000 UNITS/ML 1ML VIAL SQ SCH ×3 (06:45→22:49)
[2017-07-08 07:44] LABS: ANION GAP 7 (8-16); BLOOD UREA NITROGEN 33 mg/dL (7-18); CALCIUM 8.3 mg/dL (8.5-10.1); CHLORIDE 104 mmol/L (98-107); CO2 33 mmol/L (21-32); CREATININE 1.2 mg/dL (0.55-1.02); GLUCOSE,RANDOM 100 mg/dL (74-106); MAGNESIUM 1.8 mg/dL (1.8-2.4); PHOSPHOROUS 2.8 mg/dL (2.5-4.9); POTASSIUM 3.4 mmol/L (3.5-5.1); SODIUM 144 mmol/L (136-145)
[2017-07-08 07:45] LABS: BASO % 0.5 % (0-2.0); EOS % 2.6 % (0-4.5); HEMATOCRIT 35.3 % (32.4-45.2); HEMOGLOBIN 11.4 GM/dL (10.7-15.3); LYMPH % 20.7 % (8-40); MCH 28.9 pg (25.7-33.7); MCHC 32.2 g/dl (32.0-36.0); MEAN CELL VOLUME 89.7 fl (80-96); MEAN PLT VOLUME 9.3 fl (7.5-11.1); NEUT % 65.2 % (42.8-82.8); PLATELET COUNT 191 K/MM3 (134-434); RBC 3.94 M/mm3 (3.60-5.2); RDW 15.8 % (11.6-15.6); WHITE BLOOD COUNT 9.6 K/mm3 (4.0-10.0)
[2017-07-08] MEDS: METOPROLOL SUCCINATE 100 MG TAB.SR.24H (FP) PO SCH ×2 (09:10→22:49)
[2017-07-08] MEDS: TORSEMIDE 20 MG TABLET (FP) PO SCH (09:10)
[2017-07-08] MEDS: PANTOPRAZOLE 40 MG TABLET (FP) PO SCH (09:10)
[2017-07-08] MEDS: DIGOXIN 0.25 MG TABLET (FP) PO SCH (09:12)
[2017-07-08] MEDS: CEPHALEXIN MONOHYDRATE 500 MG CAPSULE (UD) PO SCH ×2 (09:13→22:49)
[2017-07-08] MEDS: ASPIRIN 81 MG CHEWABLE TABLETS PO SCH (09:13)
[2017-07-08] MEDS: DOCUSATE SODIUM 100 MG CAPSULE (FP) PO SCH ×2 (09:13→22:49)
[2017-07-08] MEDS: VALSARTAN 160 MG TABLET (UD) PO SCH (09:13)
[2017-07-08] MEDS: CLOTRIMAZOLE 1% CREAM 15 GM TUBE TP SCH ×2 (09:14→22:56)
[2017-07-08] MEDS: TOBRAMYCIN/DEXAMETHASONE OPHTH. OINTMENT 1 TUBE OU SCH ×2 (09:15→22:54)
--- NOTE | 2017-07-08 10:20 | CONSULT ---
Consult - text type - Consultation Consultation Note: Neurology History of Present Illness The patient is an 87 year old female with history of hypertension, hyperlipidemia, a-fib, brought in by her daughter for reported altered mental status. Per notes, the patient had not gotten out of her rocking chair for greater than 24 hours secondary to generalized weakness. The daughter also reports the patient has been hallucinating about visiting family members. She has been urinating in her diapers in her chair. She also complains of bilateral knee pain which is common secondary to her arthritis. She was admitted for treatment of UTI. She also complete CT head which I reviewed the report as well as images. 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 Reviewed this and in agreement that does not appear acute or subacute based on density and lucency. She does report taking daily ASA 81mg but has been taking that for more than ten years. She denies any visual disturbances and field cuts. I discussed with her increased dosage of ASA as it seems she had CVA despite low dose ASA and I would want to provided protection. Aggrenox was considered but would like to avoid twice a day dosing and would recommend full dose. Patient was in agreement as this was explained to her in detail. Of note, Carotid dopplers also completed and reviewed and showed 50-69% R common carotid stenosis, L carotid with moderate plaque. Past History - Past Medical History Cardiac Disorders: Yes (afib) GI Disorders: Yes (gi bleed 2* to coumadin) HTN: Yes Hypercholesterolemia: Yes - Surgical History Abdominal Surgery: Yes Cholecystectomy: Yes - Suicide/Smoking/Psychosocial Hx Smoking History: Never smoked Have you smoked in the past 12 months: No Information on smoking cessation initiated: No Hx Alcohol Use: No Drug/Substance Use Hx: No Hx Substance Use Treatment: No - Past Medical History Allergies/Adverse Reactions: Allergies Allergy/AdvReac Type Severity Reaction Status Date / Time No Known Allergies Allergy Verified 07/03/17 19:56 Home Medication List Medication Instructions Recorded Confirmed Type Allopurinol [Zyloprim -] 200 mg PO DAILY 08/27/13 07/03/17 History Furosemide [Lasix -] 40 mg PO DAILY 08/27/13 08/27/13 History Atorvastatin Ca [Lipitor] 20 mg PO HS 07/03/17 07/03/17 History Diltiazem HCl [Cartia Xt] 180 mg PO DAILY 07/03/17 07/03/17 History Metoprolol Succinate [Toprol XL -] 100 mg PO BID 07/03/17 07/03/17 History Ramipril 2.5 mg PO DAILY 07/03/17 07/03/17 History Torsemide 40 mg PO DAILY 07/03/17 07/03/17 History Active Medications Generic Name Dose Route Start Last Admin Trade Name Freq PRN Reason Stop Dose Admin Acetaminophen 650 mg 07/05/17 16:17 07/07/17 21:32 Tylenol - PO 650 mg Q4H PRN Administration FEVER OR PAIN Albuterol Sulfate 1 amp 07/05/17 09:09 07/05/17 10:50 Ventolin 0.083% Nebulizer Soln - NEB 1 amp Q4H PRN Administration SHORT OF BREATH/WHEEZING Aspirin 81 mg 07/05/17 10:00 07/08/17 09:13 Asa - PO 81 mg DAILY [facility] Administration Cephalexin HCl 500 mg 07/07/17 22:00 07/08/17 09:13 Keflex - PO 500 mg BID [facility] Administration Clotrimazole 1 applic 07/04/17 10:00 07/08/17 09:14 Lotrimin 1% Cream - TP 1 applic BID [facility] Administration Digoxin 0.25 mg 07/07/17 11:15 07/08/17 09:12 Lanoxin - PO 0.25 mg DAILY [facility] Administration Diltiazem HCl 10 mg 07/05/17 03:19 07/05/17 17:22 Cardizem Injection - IVPUSH 10 mg Q4H PRN Administration HR OVER 130 Diltiazem HCl 180 mg 07/08/17 10:00 07/08/17 09:13 Cardizem Cd - PO 180 mg DAILY [facility] Administration Docusate Sodium 100 mg 07/05/17 22:00 07/08/17 09:13 Colace - PO 100 mg BID [facility] Administration Heparin Sodium (Porcine) 5,000 unit 07/04/17 06:00 07/08/17 06:45 Heparin - SQ 5,000 unit TID [facility] Administration Metoprolol Succinate 100 mg 07/05/17 10:00 07/08/17 09:10 Toprol Xl - PO 100 mg BID [facility] Administration Pantoprazole Sodium 40 mg 07/04/17 10:00 07/08/17 09:10 Protonix - PO 40 mg DAILY [facility] Administration Tobramycin/Dexamethasone 1 applic 07/04/17 10:00 07/08/17 09:15 Tobradex Ophthalmic Ointment - OU 1 appful BID [facility] Administration Torsemide 40 mg 07/04/17 18:00 07/08/17 09:10 Demadex - PO 40 mg DAILY [facility] Administration Valsartan 320 mg 07/07/17 10:00 07/08/17 09:13 Diovan - PO 320 mg DAILY [facility] Administration Review of Systems GENERAL/CONSTITUTIONAL: +Generalized weakness. No fever. HEAD, EYES, EARS, NOSE AND THROAT: No change in vision. No ear pain or discharge. No sore throat. GASTROINTESTINAL: No nausea, vomiting, diarrhea or constipation. GENITOURINARY: No dysuria, frequency, or change in urination. CARDIOVASCULAR: No chest pain or shortness of breath. RESPIRATORY: No cough, wheezing, or hemoptysis. MUSCULOSKELETAL: +Bilateral knee pain. No neck or back pain. SKIN: No rash NEUROLOGIC: +AMS, confusion, hallucination. No headache, vertigo, loss of consciousness, focal weakness, or change in sensation. ENDOCRINE: No increased thirst. No abnormal weight change. HEMATOLOGIC/LYMPHATIC: No anemia, easy bleeding, or history of blood clots. ALLERGIC/IMMUNOLOGIC: +Rash in diaper region. No hives or skin allergy. *Physical Exam Vital Signs Period Temp Pulse Resp BP Sys/[place] Pulse Ox Last 24 Hr 97.7 F-99.0 F 77-99 18-22 136-157/56-83 94-96 Constitutional: Awake, alert, oriented to self and place but not time. No acute distress. Head: Normocephalic. Atraumatic Eyes: PERRL. EOMI. Conjunctivae are not pale. +Sclera are injected with swelling of the lower lids bilateral. ENT: +Mucous membranes are dry. Posterior pharynx without exudates or erythema. Uvula midline. Neck: Supple. Full ROM. No lymphadenopathy. Cardiovascular: Regular rate. Regular rhythm. S1, S2 regular. Distal pulses are 2+ and symmetric. Pulmonary/Chest: No evidence of respiratory distress. Clear to auscultation bilaterally No wheezing, rales or rhonchi. Abdominal: Soft and non-distended. There is no tenderness. No rebound, guarding or rigidity. No organomegaly. No palpable masses. Good bowel sounds. Back: No CVA tenderness. Musculoskeletal: 2+ bilateral pitting lower extremity, no erythema or warmth. No cyanosis. No clubbing. Full range of motion in all extremities. No calf tenderness. Radial/pedal pulses are intact and 2+ bilaterally Skin: Erythema in the diaper region that is consistent with ramos. Neurological: Alert and oriented to person, place, not time. Cranial nerves II- XII are grossly intact. Normal speech. Strength is grossly symmetric. No sensory deficits. Finger to nose intact CBCD WBC 9.6 K/mm3 (4.0-10.0) 07/08/17 06:50 RBC 3.94 M/mm3 (3.60-5.2) 07/08/17 06:50 Hgb 11.4 GM/dL (10.7-15.3) 07/08/17 06:50 Hct 35.3 % (32.4-45.2) 07/08/17 06:50 MCV 89.7 fl (80-96) 07/08/17 06:50 MCHC 32.2 g/dl (32.0-36.0) 07/08/17 06:50 RDW 15.8 % (11.6-15.6) H 07/08/17 06:50 Plt Count 191 K/MM3 (134-434) D 07/08/17 06:50 MPV 9.3 fl (7.5-11.1) 07/08/17 06:50 CMP Sodium 144 mmol/L (136-145) 07/08/17 06:50 Potassium 3.4 mmol/L (3.5-5.1) L 07/08/17 06:50 Chloride 104 mmol/L (98-107) 07/08/17 06:50 Carbon Dioxide 33 mmol/L (21-32) H 07/08/17 06:50 Anion Gap 7 (8-16) L 07/08/17 06:50 BUN 33 mg/dL (7-18) H 07/08/17 06:50 Creatinine 1.2 mg/dL (0.55-1.02) H 07/08/17 06:50 Creat Clearance w eGFR 42.40 (>60) 07/06/17 06:17 Calcium 8.3 mg/dL (8.5-10.1) L 07/08/17 06:50 Total Bilirubin 1.6 mg/dL (0.2-1.0) H D 07/06/17 06:17 AST 39 U/L (15-37) H D 07/06/17 06:17 ALT 38 U/L (12-78) 07/06/17 06:17 Alkaline Phosphatase 167 U/L (45-117) H 07/06/17 06:17 Total Protein 6.2 g/dl (6.4-8.2) L 07/06/17 06:17 Albumin 2.8 g/dl (3.4-5.0) L 07/06/17 06:17 CT head reviewed CD reviewed PLan: 87 year old female with history of hypertension, hyperlipidemia, a-fib, brought in by her daughter for reported altered mental status. Per notes, the patient had not gotten out of her rocking chair for greater than 24 hours secondary to generalized weakness. Admitted for treatment of UTI, Keflex She also complete CT head which I reviewed the report as well as images. 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 In agreement that does not appear acute or subacute based on density and lucency. Would not need to pursue further imaging at this time She does report taking daily ASA 81mg but has been taking that for more than ten years. Discussed with her increased dosage of ASA as it seems she had CVA despite low dose ASA and I would want to provided protection. Aggrenox was considered but would like to avoid twice a day dosing and would recommend full dose. Patient was in agreement as this was explained to her in detail. Carotid dopplers also completed and reviewed and showed 50-69% R common carotid stenosis, L carotid with moderate plaque. Continue BP control, maintain normotensive range, remains on valsartan and toprol Check lipid profile, goal LDL < 70, was on simvastatin 20mg as outpatient, can continue for now DVT ppx
[2017-07-08] MEDS ORDERED: ASPIRIN 81 MG CHEWABLE TABLETS PO ONE (10:30)
--- NOTE | 2017-07-08 10:47 | PN ---
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 Pt denies dysphagia. Selected Entries 07/07/17 07/07/17 07/07/17 01:00 09:00 11:30 Breakfast 75% Lunch Supper Temperature 98.8 F 98.4 F 07/07/17 07/07/17 07/07/17 15:00 18:00 19:26 Breakfast Lunch 100% Supper 100% Temperature 99.0 F 98.0 F 07/07/17 07/08/17 07/08/17 20:32 02:00 09:22 Breakfast 100% Lunch Supper Temperature 99 F 97.7 F 07/08/17 09:47 Breakfast Lunch Supper Temperature 97.9 F Swallow reassessed. No overt signs of aspiration. Dentures are home. Pt is edentulous. Con't mech soft/thin liquiids.
[2017-07-08] MEDS ORDERED: POTASSIUM CHLORIDE TABS 20 MEQ TABLET.ER (FP) PO ONE (13:00)
--- NOTE | 2017-07-08 14:28 | PN ---
Progress Note, Physician Chief Complaint: Ms Fajardo says she is doing well today. Denies cp, sob, n/v. - Current Medication List Current Medications: Active Medications Acetaminophen (Tylenol -) 650 mg PO Q4H PRN PRN Reason: FEVER OR PAIN Last Admin: 07/07/17 21:32 Dose: 650 mg Albuterol Sulfate (Ventolin 0.083% Nebulizer Soln -) 1 amp NEB Q4H PRN PRN Reason: SHORT OF BREATH/WHEEZING Last Admin: 07/05/17 10:50 Dose: 1 amp Aspirin (Asa -) 325 mg PO DAILY [facility] Atorvastatin Calcium (Lipitor -) 20 mg PO HS [facility] Cephalexin HCl (Keflex -) 500 mg PO BID [facility] Last Admin: 07/08/17 09:13 Dose: 500 mg Clotrimazole (Lotrimin 1% Cream -) 1 applic TP BID [facility] Last Admin: 07/08/17 09:14 Dose: 1 applic Digoxin (Lanoxin -) 0.25 mg PO DAILY [facility] Last Admin: 07/08/17 09:12 Dose: 0.25 mg Diltiazem HCl (Cardizem Injection -) 10 mg IVPUSH Q4H PRN PRN Reason: HR OVER 130 Last Admin: 07/05/17 17:22 Dose: 10 mg Diltiazem HCl (Cardizem Cd -) 180 mg PO DAILY [facility] Last Admin: 07/08/17 09:13 Dose: 180 mg Docusate Sodium (Colace -) 100 mg PO BID [facility] Last Admin: 07/08/17 09:13 Dose: 100 mg Heparin Sodium (Porcine) (Heparin -) 5,000 unit SQ TID [facility] Last Admin: 07/08/17 13:22 Dose: 5,000 unit Metoprolol Succinate (Toprol Xl -) 100 mg PO BID [facility] Last Admin: 07/08/17 09:10 Dose: 100 mg Pantoprazole Sodium (Protonix -) 40 mg PO DAILY [facility] Last Admin: 07/08/17 09:10 Dose: 40 mg Tobramycin/Dexamethasone (Tobradex Ophthalmic Ointment -) 1 applic OU BID [facility] Last Admin: 07/08/17 09:15 Dose: 1 appful Torsemide (Demadex -) 40 mg PO DAILY [facility] Last Admin: 07/08/17 09:10 Dose: 40 mg Valsartan (Diovan -) 320 mg PO DAILY [facility] Last Admin: 07/08/17 09:13 Dose: 320 mg - Objective Vital Signs: Vital Signs Temperature 36.6 C 07/08/17 09:47 Pulse Rate 77 07/08/17 09:47 Respiratory Rate 18 07/08/17 09:47 Blood Pressure 147/83 07/08/17 09:47 O2 Sat by Pulse Oximetry (%) 96 07/08/17 09:00 Constitutional: Yes: No Distress, Calm, Obese Cardiovascular: Yes: Pulse Irregular. No: Tachycardia, Gallop, Murmur, Rub Respiratory: Yes: Regular, CTA Bilaterally. No: Rales, Rhonchi, Wheezes Gastrointestinal: Yes: Normal Bowel Sounds, Soft. No: Distention, Tenderness Extremities: Yes: Other (dry) Edema: No Labs: CBC, BMP 07/08/17 06:50 07/08/17 06:50 INR, PTT INR 1.31 (0.82-1.09) H 07/03/17 21:05 Problem List - Problems (1) Carotid artery stenosis Code(s): I65.29 - OCCLUSION AND STENOSIS OF UNSPECIFIED CAROTID ARTERY Qualifiers: Laterality: bilateral Qualified Code(s): I65.23 - Occlusion and stenosis of bilateral carotid arteries (2) UTI (urinary tract infection) Code(s): N39.0 - URINARY TRACT INFECTION, SITE NOT SPECIFIED Qualifiers: Urinary tract infection type: acute cystitis Hematuria presence: without hematuria Qualified Code(s): N30.00 - Acute cystitis without hematuria (3) Acute metabolic encephalopathy Code(s): G93.41 - METABOLIC ENCEPHALOPATHY (4) Sepsis Code(s): A41.9 - SEPSIS, UNSPECIFIED ORGANISM (5) Elevated troponin Code(s): R74.8 - ABNORMAL LEVELS OF OTHER SERUM ENZYMES (6) Atrial fibrillation Code(s): I48.91 - UNSPECIFIED ATRIAL FIBRILLATION Qualifiers: Atrial fibrillation type: paroxysmal Qualified Code(s): I48.0 - Paroxysmal atrial fibrillation (7) HTN (hypertension) Code(s): I10 - ESSENTIAL (PRIMARY) HYPERTENSION (8) Diastolic CHF Code(s): I50.30 - UNSPECIFIED DIASTOLIC (CONGESTIVE) HEART FAILURE Qualifiers: Congestive heart failure chronicity: chronic Qualified Code(s): I50.32 - Chronic diastolic (congestive) heart failure (9) Blepharitis of both eyes Code(s): H01.003 - UNSPECIFIED BLEPHARITIS RIGHT EYE, UNSPECIFIED EYELID; H01.006 - UNSPECIFIED BLEPHARITIS LEFT EYE, UNSPECIFIED EYELID Qualifiers: Blepharitis type: squamous Eyelid: both upper and lower Qualified Code(s) : H01.021 - Squamous blepharitis right upper eyelid; H01.022 - Squamous blepharitis right lower eyelid; H01.022 - Squamous blepharitis right lower eyelid; H01.024 - Squamous blepharitis left upper eyelid; H01.024 - Squamous blepharitis left upper eyelid; H01.025 - Squamous blepharitis left lower eyelid ; H01.025 - Squamous blepharitis left lower eyelid Assessment/Plan (1) UTI (urinary tract infection) Assessment/Plan: -continue keflex for full course Code(s): N39.0 - URINARY TRACT INFECTION, SITE NOT SPECIFIED Qualifiers: Urinary tract infection type: acute cystitis Hematuria presence: without hematuria Qualified Code(s): N30.00 - Acute cystitis without hematuria (2) Acute metabolic encephalopathy Assessment/Plan: -resolved and now at baseline Code(s): G93.41 - METABOLIC ENCEPHALOPATHY (3) Sepsis Assessment/Plan: -resolving -continue antibiotics as above Code(s): A41.9 - SEPSIS, UNSPECIFIED ORGANISM (4) Elevated troponin Assessment/Plan: -appreciate cardiology assistance and case discussed Code(s): R74.8 - ABNORMAL LEVELS OF OTHER SERUM ENZYMES (5) Atrial fibrillation Assessment/Plan: -note reviewed -digoxin added -diltiazem reduced -continue aspirin, now increased -continued outpatient discussion of full anticoagulation Code(s): I48.91 - UNSPECIFIED ATRIAL FIBRILLATION Qualifiers: Atrial fibrillation type: paroxysmal Qualified Code(s): I48.0 - Paroxysmal atrial fibrillation (6) HTN (hypertension) Assessment/Plan: -continue current regimen Code(s): I10 - ESSENTIAL (PRIMARY) HYPERTENSION (7) Diastolic CHF Assessment/Plan: -not in exacerbation -continue torsemide Code(s): I50.30 - UNSPECIFIED DIASTOLIC (CONGESTIVE) HEART FAILURE Qualifiers: Congestive heart failure chronicity: chronic Qualified Code(s): I50.32 - Chronic diastolic (congestive) heart failure (8) Blepharitis of both eyes Assessment/Plan: -continue tobradex -improved Code(s): H01.003 - UNSPECIFIED BLEPHARITIS RIGHT EYE, UNSPECIFIED EYELID; H01.006 - UNSPECIFIED BLEPHARITIS LEFT EYE, UNSPECIFIED EYELID Qualifiers: Blepharitis type: squamous Eyelid: both upper and lower Qualified Code(s) : H01.021 - Squamous blepharitis right upper eyelid; H01.022 - Squamous blepharitis right lower eyelid; H01.022 - Squamous blepharitis right lower eyelid; H01.024 - Squamous blepharitis left upper eyelid; H01.024 - Squamous blepharitis left upper eyelid; H01.025 - Squamous blepharitis left lower eyelid ; H01.025 - Squamous blepharitis left lower eyelid (9) Carotid artery stenosis -noted to have old lacunar infarcts on CT scan -neurology consulted and appreciate assistance, case discussed -carotid ultrasound showing bilateral hemodynamically significant stenosis -agree with increase of aspirin and restarting statin -vascular surgery consult
--- NOTE | 2017-07-08 16:18 | CONSULT ---
Consult - text type - Consultation Consultation Note: Podiatry Consultation: Pleasant 87 year old F presented for admission via ambulance for AMS, B/L LE weakness. Podiatry consult requested for trimming of elongated toe nails. PMHx: HTN, HLD, Afib, CVD Meds: noted ALL: NKMA RENE: Pedal pulses 1/4, TG wnl, CFT brisk to all toes. Moderate pedal edema. Nails are elongated, discolored, thickened with subungual debris, incurvated, tender x 10. No nail bed ulcerations, no signs of active infection. Imp: 87 year old F with onychomycosis x 10 1. Manual debridement mycotic nails x 10 with nail nipper. Patient tolerated the procedure well. 2. Appropriate foot hygiene discussed. 3. Recommend f/u upon discharge at [facility] in about 2-3 months. [phone] 4. Thank you for the courtesy of this consultation. Vidya Butterfield DPM
--- NOTE | 2017-07-08 17:02 | PN ---
Progress Note (short form) - Note Progress Note: VAscular surgery Pt seen and examined. All images of carotid doppler reviewed. All peak systolic and diastolic velocities are within normal limits. Minimal disease in bilateral carotids. Medical management. No need for any intervention. Bhavin jessica do
[2017-07-08] MEDS: ATORVASTATIN CA 20 MG TABLET (FP) PO SCH (22:49)
[2017-07-09] MEDS: HEPARIN NA (PORCINE) 5,000 UNITS/ML 1ML VIAL SQ SCH ×3 (05:42→22:05)
[2017-07-09 08:39] LABS: BASO % 0.4 % (0-2.0); EOS % 2.9 % (0-4.5); HEMATOCRIT 38.8 % (32.4-45.2); HEMOGLOBIN 12.3 GM/dL (10.7-15.3); LYMPH % 20.3 % (8-40); MCH 28.6 pg (25.7-33.7); MCHC 31.7 g/dl (32.0-36.0); MEAN CELL VOLUME 90.1 fl (80-96); MEAN PLT VOLUME 9.6 fl (7.5-11.1); MONO % 11.8 % (3.8-10.2); NEUT % 64.6 % (42.8-82.8); PLATELET COUNT 215 K/MM3 (134-434); RDW 16.1 % (11.6-15.6); WHITE BLOOD COUNT 10.3 K/mm3 (4.0-10.0)
[2017-07-09] MEDS ORDERED: PT OWN MED DRAWER 7, Y5N ONE ×2 (09:08→21:15)
[2017-07-09] MEDS: CEPHALEXIN MONOHYDRATE 500 MG CAPSULE (UD) PO SCH ×2 (09:13→22:06)
[2017-07-09] MEDS: VALSARTAN 160 MG TABLET (UD) PO SCH (09:13)
[2017-07-09] MEDS: TORSEMIDE 20 MG TABLET (FP) PO SCH (09:13)
[2017-07-09] MEDS: ASPIRIN 325 MG TABLET PO SCH (09:13)
[2017-07-09] MEDS: METOPROLOL SUCCINATE 100 MG TAB.SR.24H (FP) PO SCH ×2 (09:14→22:07)
[2017-07-09] MEDS: DOCUSATE SODIUM 100 MG CAPSULE (FP) PO SCH ×2 (09:14→22:05)
[2017-07-09] MEDS: PANTOPRAZOLE 40 MG TABLET (FP) PO SCH (09:14)
[2017-07-09] MEDS: DIGOXIN 0.25 MG TABLET (FP) PO SCH (09:14)
[2017-07-09] MEDS: TOBRAMYCIN/DEXAMETHASONE OPHTH. OINTMENT 1 TUBE OU SCH ×2 (09:15→22:07)
[2017-07-09 09:23] LABS: CHLORIDE 101 mmol/L (98-107); SODIUM 141 mmol/L (136-145)
[2017-07-09 09:29] LABS: ANION GAP 6 (8-16); BLOOD UREA NITROGEN 32 mg/dL (7-18); CALCIUM 9.4 mg/dL (8.5-10.1); CO2 34 mmol/L (21-32); CREATININE 1.1 mg/dL (0.55-1.02); GLUCOSE,RANDOM 98 mg/dL (74-106); PHOSPHOROUS 2.7 mg/dL (2.5-4.9)
[2017-07-09] MEDS: CLOTRIMAZOLE 1% CREAM 15 GM TUBE TP SCH ×2 (10:17→22:06)
--- NOTE | 2017-07-09 10:18 | PN ---
Progress Note (short form) - Note Progress Note: Chief Complaint: altered MS History of Present Illness: Feeling better today denies sob, palpitations, cp, dizzy no cigs Current Medications: Acetaminophen (Tylenol -) 650 mg PO Q4H PRN PRN Reason: FEVER OR PAIN Last Admin: 07/07/17 21:32 Dose: 650 mg Albuterol Sulfate (Ventolin 0.083% Nebulizer Soln -) 1 amp NEB Q4H PRN PRN Reason: SHORT OF BREATH/WHEEZING Last Admin: 07/05/17 10:50 Dose: 1 amp Aspirin (Asa -) 325 mg PO DAILY [facility] Atorvastatin Calcium (Lipitor -) 20 mg PO HS [facility] Cephalexin HCl (Keflex -) 500 mg PO BID [facility] Last Admin: 07/08/17 09:13 Dose: 500 mg Clotrimazole (Lotrimin 1% Cream -) 1 applic TP BID [facility] Last Admin: 07/08/17 09:14 Dose: 1 applic Digoxin (Lanoxin -) 0.25 mg PO DAILY [facility] Last Admin: 07/08/17 09:12 Dose: 0.25 mg Diltiazem HCl (Cardizem Injection -) 10 mg IVPUSH Q4H PRN PRN Reason: HR OVER 130 Last Admin: 07/05/17 17:22 Dose: 10 mg Diltiazem HCl (Cardizem Cd -) 180 mg PO DAILY [facility] Last Admin: 07/08/17 09:13 Dose: 180 mg Docusate Sodium (Colace -) 100 mg PO BID [facility] Last Admin: 07/08/17 09:13 Dose: 100 mg Heparin Sodium (Porcine) (Heparin -) 5,000 unit SQ TID [facility] Last Admin: 07/08/17 13:22 Dose: 5,000 unit Metoprolol Succinate (Toprol Xl -) 100 mg PO BID [facility] Last Admin: 07/08/17 09:10 Dose: 100 mg Pantoprazole Sodium (Protonix -) 40 mg PO DAILY [facility] Last Admin: 07/08/17 09:10 Dose: 40 mg Tobramycin/Dexamethasone (Tobradex Ophthalmic Ointment -) 1 applic OU BID [facility] Last Admin: 07/08/17 09:15 Dose: 1 appful Torsemide (Demadex -) 40 mg PO DAILY [facility] Last Admin: 07/08/17 09:10 Dose: 40 mg Valsartan (Diovan -) 320 mg PO DAILY [facility] Last Admin: 07/08/17 09:13 Dose: 320 mg Vital Signs 07/08/17 07/08/17 07/08/17 15:58 16:58 17:00 Temperature 98.4 F 98.8 F Pulse Rate 87 102 H 83 Respiratory 18 Rate Blood Pressure 136/85 141/73 O2 Sat by Pulse 93 L Oximetry (%) Constitutional: Yes: No Distress, Calm Eyes: No: Sclera Icterus HENT: No: Nasal Congestion Cardiovascular: Yes: Pulse Irregular, S1, S2, Other (PMI non diplaced). No: JVD (in chair), Gallop, Murmur Respiratory: Yes: CTA Bilaterally (decr diffusely). No: Accessory Muscle Use, Rales, Wheezes Gastrointestinal: Yes: Normal Bowel Sounds, Soft. No: Tenderness Musculoskeletal: Yes: Other (No kyphosis) Extremities: No: Cold Edema: No Integumentary: No: Jaundice Neurological: Yes: Lethargy. No: Seizure Psychiatric: No: Agitated Labs: CBC, BMP 07/09/17 05:42 07/09/17 05:42 - ....Imaging EKG: Other (tele: afib HRs 70s-90s occ pvc's, triplets) Assessment/Plan ekg: afib with pvc's. non-spec t wave ab. no acute ischemic changes. cxr: images and report reviewed. congestive changes, stable from prior. possible atelectasis/fluid at right base. head ct: non-hemorrhagic infarct rt occipital lobe (? age not clarified). s/p bifrontal craniotomies, midline partially calcified meningioma. lt frontal lobe vasogenic edema 2/2 meningioma (similar to 2010 MRI). Echo 06/2017: nl lv fn. mod rve. rv sys function moderately reduced. mod lae. mild-mod ant. 1+ mr. mod tr. sev phtn. trivial pericardial effusion. Echo 03/2016: afib. Low/nl EF 50-55% (beat to beat variability), mod PRETTY, mod RV dilation, bline dep RV fn. + MAC. 1+ /MR, Mod TR, mod pHTN (avg TR 42 mmHg ), cath 2005: LVEDP 18, EF 60%. pRCA mild, pLAD mild, mLAD 50-60%, pLCx mild, OM1 mild. CT head: R occipital lobe infarct, likely old carotid u/s here: rt common: mod plaque 50-69%. moderate plaque on left with borderline stenosis. a/p: 87 yo with h/o HTN, HL, afib (off AC in past due to GIB/duodenoal ulcer), diastolic chf, non-obstructive cad, carotid atherosclerosis, diet controlled dm , gout, likely early/mild dementia who p/w ams. AMS/weakness/confusion - UTI/infection vs dementia - UTI being treated - no acute pathology on CT head here Diastolic dysfunction with pHTN/RV dilation/depressed function and pedal edema - Has previosly diuresed well on home torsemide (patient not sure of medications and at most recent office visit was not sure if she was on 20 mg or 40 mg. Has chronic LE edema which had improved of late on torsemide. - CXR here with stable congestive changes. no sob, no edema. - Continue home torsemide. close monitoring of weights, I/O's, bmp. - repeat echo here, RV more depressed, phtn has worsened. - long-term, she is likely to have progressive RV dysfunction and poor clinical course unless possibly if she is aggressively diuresed as outpatient and alternate causes of pulm HTN are worked up and treated as indicated--defer to outpt cardio f/u - digoxin for RV inotropy, as below - consider add spironolactone as outpt, if cannot tolerate higher doses torsemide Afib - rate controlled with metoprolol, as outpatient. Here with RVR likely 2/2 sepsis. Have needed to titrate/adjust rate meds here, currently on toprol 100 bid and dilt 180 bid with improved rate control - would minimize dose of diltiazem to avoid negative RV inotropic effects, possibly d/c eventually if possible. - decrease to 180 qd, add digoxin (also for RV inotropic effect), for now-- monitor tele. f/u dig levels daily for now - could consider AVN ablation/PM later (vs amio) for HR control, if suboptimal - has been off AC due to h/o GI bleed/duodenal ulcer. Was supposed to f/u with her GI doctor regarding safety of resuming AC, but patient had deferred. Was continued on aspirin alone. chronic ischemic infarct noted on CT here--does not accutely affect mgmt. - pt needs outpt cardio f/u and re-discussion of R/B of AC, to see if she is now willing to pursue definitive GIB w/u. consider discussion of LA appendage closure (Watch[facility]) at that time, if not previously discussed. - for now, con't asa. Non-obstructive CAD, - no angina. ekg without ischemic changes. CE's intermediate elevation in setting of elevated CK from immobilization. Flat trend. No concern for ACS -con't ASA, hold statin while with ck elevation/borderline rhabdo. HTN: -not well controlled, with bp's frequently to 150s/110s here -added valsartan 320 qd. con't dilt HL, - on atorvastatin 20 mg daily as outpatient. carotid atherosclerosis, - carotid u/s results reviewed. declined further imaging w/u as outpt - no acute CVA suspected here - con't asa. statin
--- NOTE | 2017-07-09 11:01 | PN ---
Progress Note (short form) - Note Progress Note: s: no cp sob palps dizzy o: Vital Signs Period Temp Pulse Resp BP Sys/[place] Pulse Ox Last 24 Hr 97.3 F-99.3 F 81-102 18-20 135-153/51-85 93-95 nad, calm jvd tds, neck supple alert and oriented x 2 ctab irregular, tachycardic 2/6 murmur at lsb + bs soft nt nd ext with trace edema, no cyanosis/clubbing chronic old venous stasis changes no jaundice, diaphoresis Current Medications Generic Name Dose Route Start Last Admin Trade Name Freq PRN Reason Stop Dose Admin Acetaminophen 650 mg 07/05/17 16:17 07/07/17 21:32 Tylenol - PO 650 mg Q4H PRN Administration FEVER OR PAIN Albuterol Sulfate 1 amp 07/05/17 09:09 07/05/17 10:50 Ventolin 0.083% Nebulizer Soln - NEB 1 amp Q4H PRN Administration SHORT OF BREATH/WHEEZING Aspirin 325 mg 07/09/17 10:00 07/09/17 09:13 Asa - PO 325 mg DAILY [facility] Administration Atorvastatin Calcium 20 mg 07/08/17 22:00 07/08/17 22:49 Lipitor - PO 20 mg HS [facility] Administration Cephalexin HCl 500 mg 07/07/17 22:00 07/09/17 09:13 Keflex - PO 500 mg BID [facility] Administration Clotrimazole 1 applic 07/04/17 10:00 07/08/17 22:56 Lotrimin 1% Cream - TP 1 applic BID [facility] Administration Digoxin 0.25 mg 07/07/17 11:15 07/09/17 09:14 Lanoxin - PO 0.25 mg DAILY [facility] Administration Diltiazem HCl 10 mg 07/05/17 03:19 07/05/17 17:22 Cardizem Injection - IVPUSH 10 mg Q4H PRN Administration HR OVER 130 Diltiazem HCl 180 mg 07/08/17 10:00 07/09/17 09:13 Cardizem Cd - PO 180 mg DAILY [facility] Administration Docusate Sodium 100 mg 07/05/17 22:00 07/09/17 09:14 Colace - PO 100 mg BID [facility] Administration Heparin Sodium (Porcine) 5,000 unit 07/04/17 06:00 07/09/17 05:42 Heparin - SQ 5,000 unit TID [facility] Administration Metoprolol Succinate 100 mg 07/05/17 10:00 07/09/17 09:14 Toprol Xl - PO 100 mg BID [facility] Administration Pantoprazole Sodium 40 mg 07/04/17 10:00 07/09/17 09:14 Protonix - PO 40 mg DAILY [facility] Administration Tobramycin/Dexamethasone 1 applic 07/04/17 10:00 07/09/17 09:15 Tobradex Ophthalmic Ointment - OU 1 appful BID [facility] Administration Torsemide 40 mg 07/04/17 18:00 07/09/17 09:13 Demadex - PO 40 mg DAILY [facility] Administration Valsartan 320 mg 07/07/17 10:00 07/09/17 09:13 Diovan - PO 320 mg DAILY [facility] Administration CBC, BMP 07/09/17 05:42 07/09/17 05:42 ekg: afib with pvc's. non-spec t wave ab. no acute ischemic changes. cxr: images and report reviewed. congestive changes, stable from prior. possible atelectasis/fluid at right base. head ct: non-hemorrhagic infarct rt occipital lobe (? age not clarified). s/p bifrontal craniotomies, midline partially calcified meningioma. lt frontal lobe vasogenic edema 2/2 meningioma (similar to 2010 MRI). Echo 06/2017: nl lv fn. mod rve. rv sys function moderately reduced. mod lae. mild-mod ant. 1+ mr. mod tr. sev phtn. trivial pericardial effusion. Echo 03/2016: afib. Low/nl EF 50-55% (beat to beat variability), mod PRETTY, mod RV dilation, bline dep RV fn. + MAC. 1+ /MR, Mod TR, mod pHTN (avg TR 42 mmHg ), cath 2005: LVEDP 18, EF 60%. pRCA mild, pLAD mild, mLAD 50-60%, pLCx mild, OM1 mild. CT head: R occipital lobe infarct, likely old carotid u/s here: rt common: mod plaque 50-69%. moderate plaque on left with borderline stenosis. tele: rate controlled afib a/p: 87 yo with h/o HTN, HL, afib (off AC in past due to GIB/duodenoal ulcer), diastolic chf, non-obstructive cad, carotid atherosclerosis, diet controlled dm , gout, likely early/mild dementia who p/w ams. AMS/weakness/confusion - UTI/infection vs dementia - UTI being treated - no acute pathology on CT head here Diastolic dysfunction with pHTN/RV dilation/depressed function and pedal edema - Has previosly diuresed well on home torsemide (patient not sure of medications and at most recent office visit was not sure if she was on 20 mg or 40 mg. Has chronic LE edema which had improved of late on torsemide. - CXR here with stable congestive changes. no sob, no edema. - Continue home torsemide. close monitoring of weights, I/O's, bmp. - repeat echo here, RV more depressed, phtn has worsened. - long-term, she is likely to have progressive RV dysfunction and poor clinical course unless possibly if she is aggressively diuresed as outpatient and alternate causes of pulm HTN are worked up and treated as indicated--defer to outpt cardio f/u - digoxin for RV inotropy, as below - consider add spironolactone as outpt, if cannot tolerate higher doses torsemide Afib - rate controlled with metoprolol, as outpatient. Here with RVR likely 2/2 sepsis. Have needed to titrate/adjust rate meds here, currently on toprol 100 bid and dilt 180 bid with improved rate control -cont dig, bb, ccb, rate controlled - could consider AVN ablation/PM later (vs amio) for HR control, if suboptimal - has been off AC due to h/o GI bleed/duodenal ulcer. Was supposed to f/u with her GI doctor regarding safety of resuming AC, but patient had deferred. Was continued on aspirin alone. chronic ischemic infarct noted on CT here--does not accutely affect mgmt. - pt needs outpt cardio f/u and re-discussion of R/B of AC, to see if she is now willing to pursue definitive GIB w/u. consider discussion of LA appendage closure ([facility]) at that time, if not previously discussed. - for now, con't asa. Non-obstructive CAD, - no angina. ekg without ischemic changes. CE's intermediate elevation in setting of elevated CK from immobilization. Flat trend. No concern for ACS -con't ASA, hold statin while with ck elevation/borderline rhabdo. htn: -cont current meds HL, - on atorvastatin 20 mg daily as outpatient. carotid atherosclerosis, - carotid u/s results reviewed. declined further imaging w/u as outpt - no acute CVA suspected here - con't asa. statin dc tele
--- NOTE | 2017-07-09 11:28 | PN ---
Progress Note, Physician Chief Complaint: Ms Fajardo says she is doing well. No cp, sob, n/v. - Current Medication List Current Medications: Active Medications Acetaminophen (Tylenol -) 650 mg PO Q4H PRN PRN Reason: FEVER OR PAIN Last Admin: 07/07/17 21:32 Dose: 650 mg Albuterol Sulfate (Ventolin 0.083% Nebulizer Soln -) 1 amp NEB Q4H PRN PRN Reason: SHORT OF BREATH/WHEEZING Last Admin: 07/05/17 10:50 Dose: 1 amp Aspirin (Asa -) 325 mg PO DAILY [facility] Last Admin: 07/09/17 09:13 Dose: 325 mg Atorvastatin Calcium (Lipitor -) 20 mg PO HS [facility] Last Admin: 07/08/17 22:49 Dose: 20 mg Cephalexin HCl (Keflex -) 500 mg PO BID [facility] Last Admin: 07/09/17 09:13 Dose: 500 mg Clotrimazole (Lotrimin 1% Cream -) 1 applic TP BID [facility] Last Admin: 07/08/17 22:56 Dose: 1 applic Digoxin (Lanoxin -) 0.25 mg PO DAILY [facility] Last Admin: 07/09/17 09:14 Dose: 0.25 mg Diltiazem HCl (Cardizem Injection -) 10 mg IVPUSH Q4H PRN PRN Reason: HR OVER 130 Last Admin: 07/05/17 17:22 Dose: 10 mg Diltiazem HCl (Cardizem Cd -) 180 mg PO DAILY [facility] Last Admin: 07/09/17 09:13 Dose: 180 mg Docusate Sodium (Colace -) 100 mg PO BID [facility] Last Admin: 07/09/17 09:14 Dose: 100 mg Heparin Sodium (Porcine) (Heparin -) 5,000 unit SQ TID [facility] Last Admin: 07/09/17 05:42 Dose: 5,000 unit Metoprolol Succinate (Toprol Xl -) 100 mg PO BID [facility] Last Admin: 07/09/17 09:14 Dose: 100 mg Pantoprazole Sodium (Protonix -) 40 mg PO DAILY [facility] Last Admin: 07/09/17 09:14 Dose: 40 mg Tobramycin/Dexamethasone (Tobradex Ophthalmic Ointment -) 1 applic OU BID [facility] Last Admin: 07/09/17 09:15 Dose: 1 appful Torsemide (Demadex -) 40 mg PO DAILY [facility] Last Admin: 07/09/17 09:13 Dose: 40 mg Valsartan (Diovan -) 320 mg PO DAILY [facility] Last Admin: 07/09/17 09:13 Dose: 320 mg - Objective Vital Signs: Vital Signs Temperature 36.3 C L 07/09/17 10:00 Pulse Rate 81 07/09/17 10:00 Respiratory Rate 18 07/09/17 10:00 Blood Pressure 135/51 07/09/17 10:00 O2 Sat by Pulse Oximetry (%) 95 07/08/17 21:00 Constitutional: Yes: No Distress, Calm, Obese Cardiovascular: Yes: Regular Rate and Rhythm. No: Gallop, Murmur, Rub Respiratory: Yes: Regular, CTA Bilaterally, On Nasal O2. No: Rales, Rhonchi, Wheezes Gastrointestinal: Yes: Normal Bowel Sounds, Soft. No: Distention, Tenderness Extremities: Yes: WNL Edema: No Labs: CBC, BMP 07/09/17 05:42 07/09/17 05:42 INR, PTT INR 1.31 (0.82-1.09) H 07/03/17 21:05 Problem List - Problems (1) Carotid artery stenosis Code(s): I65.29 - OCCLUSION AND STENOSIS OF UNSPECIFIED CAROTID ARTERY Qualifiers: Laterality: bilateral Qualified Code(s): I65.23 - Occlusion and stenosis of bilateral carotid arteries (2) UTI (urinary tract infection) Code(s): N39.0 - URINARY TRACT INFECTION, SITE NOT SPECIFIED Qualifiers: Urinary tract infection type: acute cystitis Hematuria presence: without hematuria Qualified Code(s): N30.00 - Acute cystitis without hematuria (3) Acute metabolic encephalopathy Code(s): G93.41 - METABOLIC ENCEPHALOPATHY (4) Sepsis Code(s): A41.9 - SEPSIS, UNSPECIFIED ORGANISM (5) Elevated troponin Code(s): R74.8 - ABNORMAL LEVELS OF OTHER SERUM ENZYMES (6) Atrial fibrillation Code(s): I48.91 - UNSPECIFIED ATRIAL FIBRILLATION Qualifiers: Atrial fibrillation type: paroxysmal Qualified Code(s): I48.0 - Paroxysmal atrial fibrillation (7) HTN (hypertension) Code(s): I10 - ESSENTIAL (PRIMARY) HYPERTENSION (8) Diastolic CHF Code(s): I50.30 - UNSPECIFIED DIASTOLIC (CONGESTIVE) HEART FAILURE Qualifiers: Congestive heart failure chronicity: chronic Qualified Code(s): I50.32 - Chronic diastolic (congestive) heart failure (9) Blepharitis of both eyes Code(s): H01.003 - UNSPECIFIED BLEPHARITIS RIGHT EYE, UNSPECIFIED EYELID; H01.006 - UNSPECIFIED BLEPHARITIS LEFT EYE, UNSPECIFIED EYELID Qualifiers: Blepharitis type: squamous Eyelid: both upper and lower Qualified Code(s) : H01.021 - Squamous blepharitis right upper eyelid; H01.022 - Squamous blepharitis right lower eyelid; H01.022 - Squamous blepharitis right lower eyelid; H01.024 - Squamous blepharitis left upper eyelid; H01.024 - Squamous blepharitis left upper eyelid; H01.025 - Squamous blepharitis left lower eyelid ; H01.025 - Squamous blepharitis left lower eyelid Assessment/Plan (1) UTI (urinary tract infection) Assessment/Plan: -continue keflex for full course Code(s): N39.0 - URINARY TRACT INFECTION, SITE NOT SPECIFIED Qualifiers: Urinary tract infection type: acute cystitis Hematuria presence: without hematuria Qualified Code(s): N30.00 - Acute cystitis without hematuria (2) Acute metabolic encephalopathy Assessment/Plan: -resolved and now at baseline Code(s): G93.41 - METABOLIC ENCEPHALOPATHY (3) Sepsis Assessment/Plan: -resolved -continue antibiotics Code(s): A41.9 - SEPSIS, UNSPECIFIED ORGANISM (4) Elevated troponin Assessment/Plan: -appreciate cardiology assistance -note reviewed Code(s): R74.8 - ABNORMAL LEVELS OF OTHER SERUM ENZYMES (5) Atrial fibrillation Assessment/Plan: -note reviewed -digoxin added -diltiazem reduced this admission -continue aspirin, now increased -continued outpatient discussion of full anticoagulation Code(s): I48.91 - UNSPECIFIED ATRIAL FIBRILLATION Qualifiers: Atrial fibrillation type: paroxysmal Qualified Code(s): I48.0 - Paroxysmal atrial fibrillation (6) HTN (hypertension) Assessment/Plan: -continue current regimen Code(s): I10 - ESSENTIAL (PRIMARY) HYPERTENSION (7) Diastolic CHF Assessment/Plan: -patient requiring oxygen -continue torsemide -recommend SNF placement Code(s): I50.30 - UNSPECIFIED DIASTOLIC (CONGESTIVE) HEART FAILURE Qualifiers: Congestive heart failure chronicity: chronic Qualified Code(s): I50.32 - Chronic diastolic (congestive) heart failure (8) Blepharitis of both eyes Assessment/Plan: -continue tobradex -improved Code(s): H01.003 - UNSPECIFIED BLEPHARITIS RIGHT EYE, UNSPECIFIED EYELID; H01.006 - UNSPECIFIED BLEPHARITIS LEFT EYE, UNSPECIFIED EYELID Qualifiers: Blepharitis type: squamous Eyelid: both upper and lower Qualified Code(s) : H01.021 - Squamous blepharitis right upper eyelid; H01.022 - Squamous blepharitis right lower eyelid; H01.022 - Squamous blepharitis right lower eyelid; H01.024 - Squamous blepharitis left upper eyelid; H01.024 - Squamous blepharitis left upper eyelid; H01.025 - Squamous blepharitis left lower eyelid ; H01.025 - Squamous blepharitis left lower eyelid (9) Carotid artery stenosis -appreciate vascular surgery assistance -no need for surgery Dispo -patient qualifies for home oxygen -however very concerned about patient going home -patient lives on the third floor and brother lives on the first floor (where the dining room is) -major concerns about patient going home in current condition, would benefit from SNF placement -d/w patient who begrudgingly agreed to think about it -case d/w daughter about concerns, agreed to discuss it as well -plan for discharge tomorrow pending decision
--- NOTE | 2017-07-09 13:03 | PN ---
Progress Note (short form) - Note Progress Note: Neurology History of Present Illness The patient is an 87 year old female with history of hypertension, hyperlipidemia, a-fib, brought in by her daughter for reported altered mental status. Per notes, the patient had not gotten out of her rocking chair for greater than 24 hours secondary to generalized weakness. The daughter also reports the patient has been hallucinating about visiting family members. She has been urinating in her diapers in her chair. She also complains of bilateral knee pain which is common secondary to her arthritis. She was admitted for treatment of UTI. She also complete CT head which I reviewed the report as well as images. 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 Reviewed this and in agreement that does not appear acute or subacute based on density and lucency. She does report taking daily ASA 81mg but has been taking that for more than ten years. She denies any visual disturbances and field cuts. 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 Aggrenox was considered but would like to avoid twice a day dosing and would recommend full dose. Patient was in agreement as this was explained to her in detail. she started taking the aspirin 325 mg dosing without any complications. There was some ecchymosis on her arms related to prior insertion of IV but she denies this being new. Carotid dopplers also completed and reviewed and showed 50-69% R common carotid stenosis, L carotid with moderate plaque. vascular surgeon consult noted and does not recommend any further intervention. Active Medications Acetaminophen (Tylenol -) 650 mg PO Q4H PRN PRN Reason: FEVER OR PAIN Last Admin: 07/07/17 21:32 Dose: 650 mg Albuterol Sulfate (Ventolin 0.083% Nebulizer Soln -) 1 amp NEB Q4H PRN PRN Reason: SHORT OF BREATH/WHEEZING Last Admin: 07/05/17 10:50 Dose: 1 amp Aspirin (Asa -) 325 mg PO DAILY [facility] Last Admin: 07/09/17 09:13 Dose: 325 mg Atorvastatin Calcium (Lipitor -) 20 mg PO HS [facility] Last Admin: 07/08/17 22:49 Dose: 20 mg Cephalexin HCl (Keflex -) 500 mg PO BID [facility] Last Admin: 07/09/17 09:13 Dose: 500 mg Clotrimazole (Lotrimin 1% Cream -) 1 applic TP BID [facility] Last Admin: 07/08/17 22:56 Dose: 1 applic Digoxin (Lanoxin -) 0.25 mg PO DAILY [facility] Last Admin: 07/09/17 09:14 Dose: 0.25 mg Diltiazem HCl (Cardizem Injection -) 10 mg IVPUSH Q4H PRN PRN Reason: HR OVER 130 Last Admin: 07/05/17 17:22 Dose: 10 mg Diltiazem HCl (Cardizem Cd -) 180 mg PO DAILY [facility] Last Admin: 07/09/17 09:13 Dose: 180 mg Docusate Sodium (Colace -) 100 mg PO BID [facility] Last Admin: 07/09/17 09:14 Dose: 100 mg Heparin Sodium (Porcine) (Heparin -) 5,000 unit SQ TID [facility] Last Admin: 07/09/17 05:42 Dose: 5,000 unit Metoprolol Succinate (Toprol Xl -) 100 mg PO BID [facility] Last Admin: 07/09/17 09:14 Dose: 100 mg Pantoprazole Sodium (Protonix -) 40 mg PO DAILY [facility] Last Admin: 07/09/17 09:14 Dose: 40 mg Tobramycin/Dexamethasone (Tobradex Ophthalmic Ointment -) 1 applic OU BID [facility] Last Admin: 07/09/17 09:15 Dose: 1 appful Torsemide (Demadex -) 40 mg PO DAILY [facility] Last Admin: 07/09/17 09:13 Dose: 40 mg Valsartan (Diovan -) 320 mg PO DAILY [facility] Last Admin: 07/09/17 09:13 Dose: 320 mg *Physical Exam Vital Signs Temperature 97.3 F L 07/09/17 10:00 Pulse Rate 81 07/09/17 10:00 Respiratory Rate 18 07/09/17 10:00 Blood Pressure 135/51 07/09/17 10:00 O2 Sat by Pulse Oximetry (%) 95 07/08/17 21:00 Constitutional: Awake, alert, oriented to self and place but not time. No acute distress. Head: Normocephalic. Atraumatic Eyes: PERRL. EOMI. Conjunctivae are not pale. +Sclera are injected with swelling of the lower lids bilateral. ENT: +Mucous membranes are dry. Posterior pharynx without exudates or erythema. Uvula midline. Neck: Supple. Full ROM. No lymphadenopathy. Cardiovascular: Regular rate. Regular rhythm. S1, S2 regular. Distal pulses are 2+ and symmetric. Pulmonary/Chest: No evidence of respiratory distress. Clear to auscultation bilaterally No wheezing, rales or rhonchi. Abdominal: Soft and non-distended. There is no tenderness. No rebound, guarding or rigidity. No organomegaly. No palpable masses. Good bowel sounds. Back: No CVA tenderness. Musculoskeletal: 2+ bilateral pitting lower extremity, no erythema or warmth. No cyanosis. No clubbing. Full range of motion in all extremities. No calf tenderness. Radial/pedal pulses are intact and 2+ bilaterally Skin: Erythema in the diaper region that is consistent with ramos. Neurological: Alert and oriented to person, place, not time. Cranial nerves II- XII are grossly intact. Normal speech. Strength is grossly symmetric. No sensory deficits. Finger to nose intact CBCD WBC 10.3 K/mm3 (4.0-10.0) H 07/09/17 05:42 RBC 4.30 M/mm3 (3.60-5.2) 07/09/17 05:42 Hgb 12.3 GM/dL (10.7-15.3) 07/09/17 05:42 Hct 38.8 % (32.4-45.2) 07/09/17 05:42 MCV 90.1 fl (80-96) 07/09/17 05:42 MCHC 31.7 g/dl (32.0-36.0) L 07/09/17 05:42 RDW 16.1 % (11.6-15.6) H 07/09/17 05:42 Plt Count 215 K/MM3 (134-434) 07/09/17 05:42 MPV 9.6 fl (7.5-11.1) 07/09/17 05:42 CMP Sodium 141 mmol/L (136-145) 07/09/17 05:42 Potassium 4.0 mmol/L (3.5-5.1) 07/09/17 05:42 Chloride 101 mmol/L (98-107) 07/09/17 05:42 Carbon Dioxide 34 mmol/L (21-32) H 07/09/17 05:42 Anion Gap 6 (8-16) L 07/09/17 05:42 BUN 32 mg/dL (7-18) H 07/09/17 05:42 Creatinine 1.1 mg/dL (0.55-1.02) H 07/09/17 05:42 Creat Clearance w eGFR 42.40 (>60) 07/06/17 06:17 Calcium 9.4 mg/dL (8.5-10.1) 07/09/17 05:42 Total Bilirubin 1.6 mg/dL (0.2-1.0) H D 07/06/17 06:17 AST 39 U/L (15-37) H D 07/06/17 06:17 ALT 38 U/L (12-78) 07/06/17 06:17 Alkaline Phosphatase 167 U/L (45-117) H 07/06/17 06:17 Total Protein 6.2 g/dl (6.4-8.2) L 07/06/17 06:17 Albumin 2.8 g/dl (3.4-5.0) L 07/06/17 06:17 CT head reviewed CD reviewed PLan: 87 year old female with history of hypertension, hyperlipidemia, a-fib, brought in by her daughter for reported altered mental status. Per notes, the patient had not gotten out of her rocking chair for greater than 24 hours secondary to generalized weakness. Admitted for treatment of UTI, Keflex She also complete CT head which I reviewed the report as well as images. 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 In agreement that does not appear acute or subacute based on density and lucency. Would not need to pursue further imaging at this time She does report taking daily ASA 81mg but has been taking that for more than ten years. 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 Carotid dopplers also completed and reviewed and showed 50-69% R common carotid stenosis, L carotid with moderate plaque vascular surgery evaluation noted, no surgical intervention recommended Continue BP control, maintain normotensive range, remains on valsartan and toprol Check lipid profile, goal LDL < 70, was on simvastatin 20mg as outpatient, has been restarted DVT ppx
[2017-07-09] MEDS: ATORVASTATIN CA 20 MG TABLET (FP) PO SCH (22:06)
[2017-07-10] MEDS: HEPARIN NA (PORCINE) 5,000 UNITS/ML 1ML VIAL SQ SCH ×2 (06:53→13:51)
[2017-07-10 07:46] LABS: BASO % 0.7 % (0-2.0); EOS % 2.1 % (0-4.5); HEMATOCRIT 37.8 % (32.4-45.2); LYMPH % 18.6 % (8-40); MCH 28.4 pg (25.7-33.7); MCHC 31.7 g/dl (32.0-36.0); MEAN CELL VOLUME 89.6 fl (80-96); MEAN PLT VOLUME 9.3 fl (7.5-11.1); MONO % 11.6 % (3.8-10.2); PLATELET COUNT 221 K/MM3 (134-434); RBC 4.22 M/mm3 (3.60-5.2); RDW 15.9 % (11.6-15.6); WHITE BLOOD COUNT 10.6 K/mm3 (4.0-10.0)
[2017-07-10 08:06] LABS: ANION GAP 6 (8-16); BLOOD UREA NITROGEN 32 mg/dL (7-18); CALCIUM 8.9 mg/dL (8.5-10.1); CHLORIDE 99 mmol/L (98-107); CO2 36 mmol/L (21-32); CREATININE 1.1 mg/dL (0.55-1.02); GLUCOSE,RANDOM 96 mg/dL (74-106); PHOSPHOROUS 3.2 mg/dL (2.5-4.9); SODIUM 141 mmol/L (136-145)
--- NOTE | 2017-07-10 09:50 | PN ---
Progress Note (short form) - Note Progress Note: Neurology History of Present Illness The patient is an 87 year old female with history of hypertension, hyperlipidemia, a-fib, brought in by her daughter for reported altered mental status. Per notes, the patient had not gotten out of her rocking chair for greater than 24 hours secondary to generalized weakness. The daughter also reports the patient has been hallucinating about visiting family members. She has been urinating in her diapers in her chair. She also complains of bilateral knee pain which is common secondary to her arthritis. She was admitted for treatment of UTI. She also complete CT head which I reviewed the report as well as images. 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 Reviewed this and in agreement that does not appear acute or subacute based on density and lucency. She does report taking daily ASA 81mg but has been taking that for more than ten years. She denies any visual disturbances and field cuts. 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 Aggrenox was considered but would like to avoid twice a day dosing and would recommend full dose. Patient was in agreement as this was explained to her in detail. she started taking the aspirin 325 mg dosing without any complications. There was some ecchymosis on her arms related to prior insertion of IV but she denies this being new. Carotid dopplers also completed and reviewed and showed 50-69% R common carotid stenosis , L carotid with moderate plaque. vascular surgeon consult noted and does not recommend any further intervention. No new neurologic events and no bleeding with increased dose of ASA. Active Medications Acetaminophen (Tylenol -) 650 mg PO Q4H PRN PRN Reason: FEVER OR PAIN Last Admin: 07/07/17 21:32 Dose: 650 mg Aspirin (Asa -) 325 mg PO DAILY [facility] Last Admin: 07/09/17 09:13 Dose: 325 mg Atorvastatin Calcium (Lipitor -) 20 mg PO HS [facility] Last Admin: 07/09/17 22:06 Dose: 20 mg Cephalexin HCl (Keflex -) 500 mg PO BID [facility] Last Admin: 07/09/17 22:06 Dose: 500 mg Clotrimazole (Lotrimin 1% Cream -) 1 applic TP BID [facility] Last Admin: 07/09/17 22:06 Dose: 1 applic Digoxin (Lanoxin -) 0.25 mg PO DAILY [facility] Last Admin: 07/09/17 09:14 Dose: 0.25 mg Diltiazem HCl (Cardizem Injection -) 10 mg IVPUSH Q4H PRN PRN Reason: HR OVER 130 Last Admin: 07/05/17 17:22 Dose: 10 mg Diltiazem HCl (Cardizem Cd -) 180 mg PO DAILY [facility] Last Admin: 07/09/17 09:13 Dose: 180 mg Docusate Sodium (Colace -) 100 mg PO BID [facility] Last Admin: 07/09/17 22:05 Dose: 100 mg Heparin Sodium (Porcine) (Heparin -) 5,000 unit SQ TID [facility] Last Admin: 07/10/17 06:53 Dose: 5,000 unit Metoprolol Succinate (Toprol Xl -) 100 mg PO BID [facility] Last Admin: 07/09/17 22:07 Dose: 100 mg Pantoprazole Sodium (Protonix -) 40 mg PO DAILY [facility] Last Admin: 07/09/17 09:14 Dose: 40 mg Tobramycin/Dexamethasone (Tobradex Ophthalmic Ointment -) 1 applic OU BID [facility] Last Admin: 07/09/17 22:07 Dose: 1 appful Torsemide (Demadex -) 40 mg PO DAILY [facility] Last Admin: 07/09/17 09:13 Dose: 40 mg Valsartan (Diovan -) 320 mg PO DAILY [facility] Last Admin: 07/09/17 09:13 Dose: 320 mg *Physical Exam Vital Signs Temperature 98.2 F 07/10/17 05:53 Pulse Rate 95 H 07/10/17 05:53 Respiratory Rate 18 07/10/17 05:53 Blood Pressure 149/67 07/10/17 05:53 O2 Sat by Pulse Oximetry (%) 95 07/09/17 21:00 Constitutional: Awake, alert, oriented to self and place but not time. No acute distress. Head: Normocephalic. Atraumatic Eyes: PERRL. EOMI. Conjunctivae are not pale. +Sclera are injected with swelling of the lower lids bilateral. ENT: +Mucous membranes are dry. Posterior pharynx without exudates or erythema. Uvula midline. Neck: Supple. Full ROM. No lymphadenopathy. Cardiovascular: Regular rate. Regular rhythm. S1, S2 regular. Distal pulses are 2+ and symmetric. Pulmonary/Chest: No evidence of respiratory distress. Clear to auscultation bilaterally No wheezing, rales or rhonchi. Abdominal: Soft and non-distended. There is no tenderness. No rebound, guarding or rigidity. No organomegaly. No palpable masses. Good bowel sounds. Back: No CVA tenderness. Musculoskeletal: 2+ bilateral pitting lower extremity, no erythema or warmth. No cyanosis. No clubbing. Full range of motion in all extremities. No calf tenderness. Radial/pedal pulses are intact and 2+ bilaterally Skin: Erythema in the diaper region that is consistent with ramos. Neurological: Alert and oriented to person, place, not time. Cranial nerves II- XII are grossly intact. Normal speech. Strength is grossly symmetric. No sensory deficits. Finger to nose intact CBCD WBC 10.6 K/mm3 (4.0-10.0) H 07/10/17 06:50 RBC 4.22 M/mm3 (3.60-5.2) 07/10/17 06:50 Hgb 12.0 GM/dL (10.7-15.3) 07/10/17 06:50 Hct 37.8 % (32.4-45.2) 07/10/17 06:50 MCV 89.6 fl (80-96) 07/10/17 06:50 MCHC 31.7 g/dl (32.0-36.0) L 07/10/17 06:50 RDW 15.9 % (11.6-15.6) H 07/10/17 06:50 Plt Count 221 K/MM3 (134-434) 07/10/17 06:50 MPV 9.3 fl (7.5-11.1) 07/10/17 06:50 CMP Sodium 141 mmol/L (136-145) 07/10/17 06:50 Potassium 4.0 mmol/L (3.5-5.1) 07/10/17 06:50 Chloride 99 mmol/L (98-107) 07/10/17 06:50 Carbon Dioxide 36 mmol/L (21-32) H 07/10/17 06:50 Anion Gap 6 (8-16) L 07/10/17 06:50 BUN 32 mg/dL (7-18) H 07/10/17 06:50 Creatinine 1.1 mg/dL (0.55-1.02) H 07/10/17 06:50 Creat Clearance w eGFR 42.40 (>60) 07/06/17 06:17 Calcium 8.9 mg/dL (8.5-10.1) 07/10/17 06:50 Total Bilirubin 1.6 mg/dL (0.2-1.0) H D 07/06/17 06:17 AST 39 U/L (15-37) H D 07/06/17 06:17 ALT 38 U/L (12-78) 07/06/17 06:17 Alkaline Phosphatase 167 U/L (45-117) H 07/06/17 06:17 Total Protein 6.2 g/dl (6.4-8.2) L 07/06/17 06:17 Albumin 2.8 g/dl (3.4-5.0) L 07/06/17 06:17 CT head reviewed CD reviewed PLan: 87 year old female with history of hypertension, hyperlipidemia, a-fib, brought in by her daughter for reported altered mental status. Per notes, the patient had not gotten out of her rocking chair for greater than 24 hours secondary to generalized weakness. Admitted for treatment of UTI, Keflex She also complete CT head which I reviewed the report as well as images. 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 In agreement that does not appear acute or subacute based on density and lucency. Would not need to pursue further imaging at this time She does report taking daily ASA 81mg but has been taking that for more than ten years. 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 Carotid dopplers also completed and reviewed and showed 50-69% R common carotid stenosis, L carotid with moderate plaque vascular surgery evaluation noted, no surgical intervention recommended No bleeding or other complications from higher dose ASA Continue BP control, maintain normotensive range, remains on valsartan and toprol Check lipid profile, goal LDL < 70, was on simvastatin 20mg as outpatient, has been restarted DVT ppx
[2017-07-10] MEDS: DOCUSATE SODIUM 100 MG CAPSULE (FP) PO SCH (11:12)
[2017-07-10] MEDS: METOPROLOL SUCCINATE 100 MG TAB.SR.24H (FP) PO SCH (11:12)
[2017-07-10] MEDS: ASPIRIN 325 MG TABLET PO SCH (11:12)
[2017-07-10] MEDS: PANTOPRAZOLE 40 MG TABLET (FP) PO SCH (11:12)
[2017-07-10] MEDS: CEPHALEXIN MONOHYDRATE 500 MG CAPSULE (UD) PO SCH (11:12)
[2017-07-10] MEDS: VALSARTAN 160 MG TABLET (UD) PO SCH (11:12)
[2017-07-10] MEDS: DIGOXIN 0.25 MG TABLET (FP) PO SCH (11:13)
[2017-07-10] MEDS: TORSEMIDE 20 MG TABLET (FP) PO SCH (11:13)
[2017-07-10] MEDS: TOBRAMYCIN/DEXAMETHASONE OPHTH. OINTMENT 1 TUBE OU SCH (11:14)
[2017-07-10] MEDS: CLOTRIMAZOLE 1% CREAM 15 GM TUBE TP SCH (11:15)
--- NOTE | 2017-07-10 11:55 | PN ---
Progress Note (short form) - Note Progress Note: s: no cp sob palps dizzy o: Vital Signs Period Temp Pulse Resp BP Sys/Polk Pulse Ox Last 24 Hr 98.0 F-98.5 F 82-95 18-18 137-159/53-84 95 nad, calm jvd tds, neck supple alert and oriented x 2 ctab irregular, tachycardic 2/6 murmur at lsb + bs soft nt nd ext with trace edema, no cyanosis/clubbing chronic old venous stasis changes no jaundice, diaphoresis Current Medications Generic Name Dose Route Start Last Admin Trade Name Freq PRN Reason Stop Dose Admin Acetaminophen 650 mg 07/05/17 16:17 07/07/17 21:32 Tylenol - PO 650 mg Q4H PRN Administration FEVER OR PAIN Aspirin 325 mg 07/09/17 10:00 07/10/17 11:12 Asa - PO 325 mg DAILY NOEMÍ Administration Atorvastatin Calcium 20 mg 07/08/17 22:00 07/09/17 22:06 Lipitor - PO 20 mg HS NOEMÍ Administration Cephalexin HCl 500 mg 07/07/17 22:00 07/10/17 11:12 Keflex - PO 500 mg BID NOEMÍ Administration Clotrimazole 1 applic 07/04/17 10:00 07/10/17 11:15 Lotrimin 1% Cream - TP 1 applic BID NOEMÍ Administration Digoxin 0.25 mg 07/07/17 11:15 07/10/17 11:13 Lanoxin - PO 0.25 mg DAILY NOEMÍ Administration Diltiazem HCl 10 mg 07/05/17 03:19 07/05/17 17:22 Cardizem Injection - IVPUSH 10 mg Q4H PRN Administration HR OVER 130 Diltiazem HCl 180 mg 07/08/17 10:00 07/10/17 11:12 Cardizem Cd - PO 180 mg DAILY NOEMÍ Administration Docusate Sodium 100 mg 07/05/17 22:00 07/10/17 11:12 Colace - PO 100 mg BID NOEMÍ Administration Heparin Sodium (Porcine) 5,000 unit 07/04/17 06:00 07/10/17 06:53 Heparin - SQ 5,000 unit TID NOEMÍ Administration Metoprolol Succinate 100 mg 07/05/17 10:00 07/10/17 11:12 Toprol Xl - PO 100 mg BID NOEMÍ Administration Pantoprazole Sodium 40 mg 07/04/17 10:00 07/10/17 11:12 Protonix - PO 40 mg DAILY NOEMÍ Administration Tobramycin/Dexamethasone 1 applic 07/04/17 10:00 07/10/17 11:14 Tobradex Ophthalmic Ointment - OU 1 appful BID NOEMÍ Administration Torsemide 40 mg 07/04/17 18:00 07/10/17 11:13 Demadex - PO 40 mg DAILY NOEMÍ Administration Valsartan 320 mg 07/07/17 10:00 07/10/17 11:12 Diovan - PO 320 mg DAILY NOEMÍ Administration CBC, BMP 07/10/17 06:50 07/10/17 06:50 ekg: afib with pvc's. non-spec t wave ab. no acute ischemic changes. cxr: images and report reviewed. congestive changes, stable from prior. possible atelectasis/fluid at right base. head ct: non-hemorrhagic infarct rt occipital lobe (? age not clarified). s/p bifrontal craniotomies, midline partially calcified meningioma. lt frontal lobe vasogenic edema 2/2 meningioma (similar to 2010 MRI). Echo 06/2017: nl lv fn. mod rve. rv sys function moderately reduced. mod lae. mild-mod ant. 1+ mr. mod tr. sev phtn. trivial pericardial effusion. Echo 03/2016: afib. Low/nl EF 50-55% (beat to beat variability), mod PRETTY, mod RV dilation, bline dep RV fn. + MAC. 1+ /MR, Mod TR, mod pHTN (avg TR 42 mmHg ), cath 2005: LVEDP 18, EF 60%. pRCA mild, pLAD mild, mLAD 50-60%, pLCx mild, OM1 mild. CT head: R occipital lobe infarct, likely old carotid u/s here: rt common: mod plaque 50-69%. moderate plaque on left with borderline stenosis. a/p: 87 yo with h/o HTN, HL, afib (off AC in past due to GIB/duodenoal ulcer), diastolic chf, non-obstructive cad, carotid atherosclerosis, diet controlled dm , gout, likely early/mild dementia who p/w ams. AMS/weakness/confusion - UTI/infection vs dementia - UTI being treated - no acute pathology on CT head here Diastolic dysfunction with pHTN/RV dilation/depressed function and pedal edema - Has previosly diuresed well on home torsemide (patient not sure of medications and at most recent office visit was not sure if she was on 20 mg or 40 mg. Has chronic LE edema which had improved of late on torsemide. - CXR here with stable congestive changes. no sob, no edema. - Continue home torsemide. close monitoring of weights, I/O's, bmp. - repeat echo here, RV more depressed, phtn has worsened. - long-term, she is likely to have progressive RV dysfunction and poor clinical course unless possibly if she is aggressively diuresed as outpatient and alternate causes of pulm HTN are worked up and treated as indicated--defer to outpt cardio f/u - digoxin for RV inotropy, as below - consider add spironolactone as outpt, if cannot tolerate higher doses torsemide Afib - rate controlled with metoprolol, as outpatient. Here with RVR likely 2/2 sepsis. Have needed to titrate/adjust rate meds here, currently on toprol 100 bid and dilt 180 bid with improved rate control -cont dig, bb, ccb, rate controlled - could consider AVN ablation/PM later (vs amio) for HR control, if suboptimal - has been off AC due to h/o GI bleed/duodenal ulcer. Was supposed to f/u with her GI doctor regarding safety of resuming AC, but patient had deferred. Was continued on aspirin alone. chronic ischemic infarct noted on CT here--does not accutely affect mgmt. - pt needs outpt cardio f/u and re-discussion of R/B of AC, to see if she is now willing to pursue definitive GIB w/u. consider discussion of LA appendage closure (Watchman) at that time, if not previously discussed. - for now, con't asa. Non-obstructive CAD, - no angina. ekg without ischemic changes. CE's intermediate elevation in setting of elevated CK from immobilization. Flat trend. No concern for ACS -con't ASA, hold statin while with ck elevation/borderline rhabdo. htn: -cont current meds HL, - on atorvastatin 20 mg daily as outpatient. carotid atherosclerosis, - carotid u/s results reviewed. declined further imaging w/u as outpt - no acute CVA suspected here - con't asa. statin cardiac martinez ok for snf
--- NOTE | 2017-07-10 13:33 | DS ---
Physical Examination Vital Signs: Vital Signs Temperature 36.6 C 07/10/17 10:00 Pulse Rate 90 07/10/17 11:13 Respiratory Rate 18 07/10/17 10:00 Blood Pressure 135/64 07/10/17 10:00 O2 Sat by Pulse Oximetry (%) 95 07/09/17 21:00 Constitutional: Yes: No Distress, Calm, Obese Cardiovascular: Yes: Regular Rate and Rhythm. No: Gallop, Murmur, Rub Respiratory: Yes: Regular, CTA Bilaterally. No: Rales, Rhonchi, Wheezes Gastrointestinal: Yes: Normal Bowel Sounds, Soft. No: Distention, Tenderness Extremities: Yes: WNL Edema: No Labs: CBC, BMP 07/10/17 06:50 07/10/17 06:50 Discharge Summary Reason For Visit: URINARY TRACT INFECTION; FAILURE TO THRIVE Current Active Problems Acute metabolic encephalopathy (Acute) Altered mental status (Acute) Blepharitis of both eyes (Acute) Carotid artery stenosis (Acute) Diastolic CHF (Acute) Elevated troponin (Acute) Failure to thrive (Acute) Sepsis (Acute) UTI (urinary tract infection) (Acute) Hospital Course: (1) Carotid artery stenosis Code(s): I65.29 - OCCLUSION AND STENOSIS OF UNSPECIFIED CAROTID ARTERY Qualifiers: Laterality: bilateral Qualified Code(s): I65.23 - Occlusion and stenosis of bilateral carotid arteries (2) UTI (urinary tract infection) Code(s): N39.0 - URINARY TRACT INFECTION, SITE NOT SPECIFIED Qualifiers: Urinary tract infection type: acute cystitis Hematuria presence: without hematuria Qualified Code(s): N30.00 - Acute cystitis without hematuria (3) Acute metabolic encephalopathy Code(s): G93.41 - METABOLIC ENCEPHALOPATHY (4) Sepsis Code(s): A41.9 - SEPSIS, UNSPECIFIED ORGANISM (5) Elevated troponin Code(s): R74.8 - ABNORMAL LEVELS OF OTHER SERUM ENZYMES (6) Atrial fibrillation Code(s): I48.91 - UNSPECIFIED ATRIAL FIBRILLATION Qualifiers: Atrial fibrillation type: paroxysmal Qualified Code(s): I48.0 - Paroxysmal atrial fibrillation (7) HTN (hypertension) Code(s): I10 - ESSENTIAL (PRIMARY) HYPERTENSION (8) Diastolic CHF Code(s): I50.30 - UNSPECIFIED DIASTOLIC (CONGESTIVE) HEART FAILURE Qualifiers: Congestive heart failure chronicity: chronic Qualified Code(s): I50.32 - Chronic diastolic (congestive) heart failure (9) Blepharitis of both eyes Code(s): H01.003 - UNSPECIFIED BLEPHARITIS RIGHT EYE, UNSPECIFIED EYELID; H01.006 - UNSPECIFIED BLEPHARITIS LEFT EYE, UNSPECIFIED EYELID Qualifiers: Blepharitis type: squamous Eyelid: both upper and lower Qualified Code(s) : H01.021 - Squamous blepharitis right upper eyelid; H01.022 - Squamous blepharitis right lower eyelid; H01.022 - Squamous blepharitis right lower eyelid; H01.024 - Squamous blepharitis left upper eyelid; H01.024 - Squamous blepharitis left upper eyelid; H01.025 - Squamous blepharitis left lower eyelid ; H01.025 - Squamous blepharitis left lower eyelid Ms Fajardo is a pleasant 87 year old female who came in with sepsis secondary to UTI and acute metabolic encephalopathy. She was admitted to telemetry and seen by ID. She was originally started on IV antibiotics and cultures were sent. Urine cultures came back as pansensitive enterobacter. She improved significantly and her sepsis resolved. She was transitioned to oral antibiotics and tolerated this well. She will be able to finish her course as an outpatient. She was seen by cardiology for elevated troponins, this was stress induced. However she has a history of diastolic CHF and had a small exacerbation. She was treated with torsemide and improved. She has atrial fibrillation but is currently not on anticoagulation secondary to GIB in the past. She is currently stable and ready for discharge to SNF for further rehab. 34 minutes spent in preparation of this discharge Condition: Stable - Instructions Diet, Activity, Other Instructions: mechanical soft low fat diet. Up with assistance, further activity per PT at SNF. Continue keflex for 3 more days Referrals: Dania Graham MD [Staff Physician] - Miquel Goodrich MD [Staff Physician] - Disposition: LONG TERM FACILITY - Home Medications Comprehensive Discharge Medication List: Ambulatory Orders Allopurinol [Zyloprim -] 200 mg PO DAILY 08/27/13 Cholecalciferol (Vitamin D3) [Vitamin D3 -] 1,000 unit PO DAILY #0 tab 09/03/13 Mag Hydrox/Al Hydrox/Simeth [Mylanta Oral Suspension -] 30 ml PO TID #0 cup 03/ 07/14 Atorvastatin Ca [Lipitor] 20 mg PO HS 07/03/17 Diltiazem HCl [Cartia Xt] 180 mg PO DAILY 07/03/17 Metoprolol Succinate [Toprol XL -] 100 mg PO BID 07/03/17 Aspirin [ASA -] 325 mg PO DAILY tablet 07/10/17 Cephalexin Monohydrate [Keflex -] 500 mg PO BID capsule 07/10/17 Clotrimazole [Lotrimin -] 1 applic TP BID tube 07/10/17 Digoxin [Lanoxin -] 0.25 mg PO DAILY tablet 07/10/17 Docusate Sodium [Colace -] 100 mg PO BID capsule 07/10/17 Torsemide [Demadex -] 40 mg PO DAILY tablet 07/10/17 Valsartan [Diovan] 320 mg PO DAILY tablet 07/10/17
[2017-07-10 20:20] VITALS: BP 136/62; PULSE 83; TEMP 97.8
== END 2017-07-10 20:28 | DRG 871 ==
LOC: JER 19:27 → JERBED 21:38 → J4W 07-04 15:51 → J5S 07-09 16:03
PROVIDERS: ADMIT Internal Medicine; ATTEND Internal Medicine
DX: A41.9 Sepsis, unspecified organism (principal); G93.41 Metabolic encephalopathy; I50.33 Acute on chronic diastolic (congestive) heart failure; N39.0 Urinary tract infection, site not specified; I65.23 Occlusion and stenosis of bilateral carotid arteries; I48.91 Unspecified atrial fibrillation; I11.0 Hypertensive heart disease with heart failure; H01.003 Unspecified blepharitis right eye, unspecified eyelid; H01.006 Unspecified blepharitis left eye, unspecified eyelid; I27.20 Pulmonary hypertension, unspecified; E78.5 Hyperlipidemia, unspecified; E87.6 Hypokalemia; I25.10 Atherosclerotic heart disease of native coronary artery without angina pectoris; R41.82 Altered mental status, unspecified; L30.4 Erythema intertrigo; R62.7 Adult failure to thrive
CPT/HCPCS: 36415; 70450-TC; 71045-TC; 76705-TC; 80048; 80053; 80162; 80307; 81003; 81015; 82550; 82553; 82607; 82803; 82977; 83605; 83735; 83880; 84100; 84132; 84443; 84484; 85025; 85027; 85610; 85730; 86593; 86850; 86900; 86901; 87040; 87086; 87186; 87899; 93005; 93010; 93306-TC; 93880-TC; 94640; 94761; 97116-GP; 97161-GP; 99285-25; J1644

== ENCOUNTER 2018-02-25 17:05 | Inpatient (IN) | payer BC, OTHER ==
--- NOTE | 2018-02-25 18:56 | PDOC ---
History of Present Illness - General Chief Complaint: Weakness Stated Complaint: DEHYDRATION Time Seen by Provider: 02/25/18 18:18 History Source: Patient, Family Exam Limitations: No Limitations - History of Present Illness Initial Comments: 02/25/18 18:56 The patient is an 87F with a PMH of hypertension, hyperlipidemia, a-fib who presents to the ER with complaints of weakness. The patient is with her daughter who provides some of the history. The daughter states that the patient has had worsening weakness since yesterday. She has had difficulty getting out of bed. The patient denies fever, chills, nausea, vomiting, cough, dysuria, but admits to worsening swelling and redness in her b/l LE. Past History - Past Medical History Allergies/Adverse Reactions: Allergies Allergy/AdvReac Type Severity Reaction Status Date / Time No Known Allergies Allergy Verified 02/25/18 17:22 Home Medications: Ambulatory Orders Allopurinol [Zyloprim -] 100 mg PO DAILY 02/25/18 Aspirin [ASA -] 81 mg PO DAILY 02/25/18 Atorvastatin Calcium [Lipitor] 20 mg PO HS 02/25/18 Cholecalciferol (Vitamin D3) [Vitamin D3 -] 400 unit PO DAILY 02/25/18 Digoxin 125 mcg PO DAILY 02/25/18 Diltiazem HCl [Cartia Xt] 180 mg PO DAILY 02/25/18 Losartan Potassium 100 mg PO DAILY 02/25/18 Magnesium Oxide 400 mg PO DAILY 02/25/18 Metoprolol Succinate [Toprol Xl] 100 mg PO BID 02/25/18 Torsemide 20 mg PO DAILY 02/25/18 Cardiac Disorders: Yes (afib) COPD: No GI Disorders: Yes (gi bleed 2* to coumadin) HTN: Yes Hypercholesterolemia: Yes - Surgical History Abdominal Surgery: Yes Cholecystectomy: Yes - Suicide/Smoking/Psychosocial Hx Smoking History: Former smoker Have you smoked in the past 12 months: No Information on smoking cessation initiated: No Hx Alcohol Use: No Drug/Substance Use Hx: No Hx Substance Use Treatment: No Review of Systems - Review of Systems Able to Perform ROS?: Yes Comments:: 02/25/18 19:10 GENERAL/CONSTITUTIONAL: Positive for weakness. No fever or chills. HEAD, EYES, EARS, NOSE AND THROAT: No change in vision. No ear pain or discharge. No sore throat. CARDIOVASCULAR: No chest pain, palpitations, or lightheadedness. RESPIRATORY: No cough, wheezing, shortness of breath, or hemoptysis. GASTROINTESTINAL: No nausea, vomiting, diarrhea, constipation, or abdominal pain. GENITOURINARY: No dysuria, frequency, hematuria, or change in urination. MUSCULOSKELETAL: No joint or muscle swelling or pain. No neck or back pain. SKIN: Positive for redness and swelling in b/l LE. NEUROLOGIC: No headache, numbness, tingling, focal weakness, loss of consciousness, or change in strength/sensation. Is the patient limited Syriac proficient: No *Physical Exam - Vital Signs Last Vital Signs Temp Pulse Resp BP Pulse Ox 99.6 F 82 18 147/46 97 02/25/18 17:23 02/25/18 17:23 02/25/18 17:23 02/25/18 17:23 02/25/18 17:23 - Physical Exam Comments: 02/25/18 19:13 GENERAL: Well developed, well nourished. Awake and alert. No acute distress. HEENT: Normocephalic, atraumatic. Hearing grossly normal. Dry mucous membranes. PERRLA, EOMI. No conjunctival pallor. Sclera are non-icteric. NECK: Supple. Full ROM. No JVD. CARDIOVASCULAR: Regular rate and rhythm. No murmurs, rubs, or gallops. PULMONARY: No evidence of respiratory distress. Lungs clear to auscultation bilaterally. No wheezing, rales or rhonchi. ABDOMINAL: Soft. Non-tender. Non-distended. No rebound or guarding. GENITOURINARY: No CVA tenderness bilaterally. MUSCULOSKELETAL: Normal range of motion at all joints. No bony deformities or tenderness. EXTREMITIES: No cyanosis. No clubbing. B/l 2+ edema in LE. Redness up to mid- calf bilaterally. No calf tenderness or swelling. SKIN: Warm and dry. Normal capillary refill. No rashes. No jaundice. NEUROLOGICAL: Alert, awake, appropriate. Cranial nerves 2-12 grossly intact. Normal speech. PSYCHIATRIC: Cooperative. Good eye contact. Appropriate mood and affect. Heart Score/ECG Review #1 General ECG Interpretation: Sinus Rhythm, Normal Rate, Normal Intervals, No acute ischemic changes Compared to previous ECG there are: No significant change 08/29/18 19:17 A fib rate at 60 KS - QRS 78 QTc 369 A fib w/ R axis. Unchanged from previous. No STD or JOJO. ED Treatment Course - LABORATORY CBC & Chemistry Diagram: 02/25/18 18:30 02/25/18 18:30 - RADIOLOGY Radiology Studies Ordered: Category Date Time Status HEAD CT WITHOUT CONTRAST [CT] Stat CT Scan 02/25/18 18:18 Ordered CHEST X-RAY PORTABLE* [RAD] Stat Radiology 02/25/18 18:18 Taken Medical Decision Making - Medical Decision Making 02/25/18 19:18 The patient is an 87F with an extensive PMH who presents to the ER with complaints of weakness. The daughter states that she had a similar presentation before her prior UTI. Pt has cellulitis on b/l LE. Will give abx. Labs and blood cx drawn. Pending labs and imaging. 02/25/18 20:56 Hgb 10.6. CMP with mild lab abnormalities. Will give IV abx for cellulitis. Hospitalist microblogged for admission. 02/25/18 21:19 I have endorsed the pt to Dr. Bronson for admission. *DC/Admit/Observation/Transfer Diagnosis at time of Disposition: Acquired lymphedema of leg Cellulitis Qualifiers: Site of cellulitis: extremity Site of cellulitis of extremity: lower extremity Laterality: unspecified laterality Qualified Code(s): L03.119 - Cellulitis of unspecified part of limb - Discharge Dispostion Condition at time of disposition: Guarded Decision to Admit order: Yes - Referrals - Patient Instructions - Post Discharge Activity
[2018-02-25 18:57] LABS: BASO % 0.6 % (0-2.0); EOS % 1.8 % (0-4.5); HEMATOCRIT 32.5 % (32.4-45.2); HEMOGLOBIN 10.6 GM/dL (10.7-15.3); LYMPH % 16.4 % (8-40); MCHC 32.5 g/dl (32.0-36.0); MEAN CELL VOLUME 86.1 fl (80-96); MEAN PLT VOLUME 8.4 fl (7.5-11.1); MONO % 12.1 % (3.8-10.2); NEUT % 69.1 % (42.8-82.8); PLATELET COUNT 249 K/MM3 (134-434); RBC 3.77 M/mm3 (3.60-5.2); RDW 20.3 % (11.6-15.6); WHITE BLOOD COUNT 8.6 K/mm3 (4.0-10.0)
[2018-02-25] MEDS ORDERED: CEFAZOLIN 1 GM in DEXTROSE 5%-WATER - 50 ML IVPB ONE (19:07)
[2018-02-25 19:25] LABS: ALBUMIN 3.1 g/dl (3.4-5.0); ANION GAP 10 MMOL/L (8-16); BLOOD UREA NITROGEN 20 mg/dL (7-18); CALCIUM 8.8 mg/dL (8.5-10.1); CHLORIDE 108 mmol/L (98-107); CO2 26 mmol/L (21-32); CREATININE 0.9 mg/dL (0.55-1.02); GLUCOSE,RANDOM 96 mg/dL (74-106); MAGNESIUM 1.9 mg/dL (1.8-2.4); POTASSIUM 3.6 mmol/L (3.5-5.1); SGOT/AST 39 U/L (15-37); SGPT/ALT 28 U/L (12-78); SODIUM 144 mmol/L (136-145)
[2018-02-25 19:28] LABS: ALK PHOS 197 U/L (45-117); BILIRUBIN,TOTAL 1.1 mg/dL (0.2-1.0); TOT PROT 6.4 g/dl (6.4-8.2)
[2018-02-25] MEDS ORDERED: ceFAZolin SODIUM 1 GM VIAL ONE (20:39)
[2018-02-25] MEDS ORDERED: CLINDAMYCIN 600MG PREMIX IVPB 600 MG/50 ML BAG IVPB ONE ×2 (20:48→21:35)
--- NOTE | 2018-02-25 20:58 | PDOC ---
Attending Attestation - HPI HPI: 02/25/18 21:15 The patient is a 87 year old female presenting with her daughter, with a significant past medical history of hypertension, hyperlipidemia, a-fib, who presents to the ED complaining of generalized weakness. The patient has been having worsening weakness since yesterday to the point she has been having trouble getting out of bed. The patient denies chest pain, shortness of breath, headache and dizziness. Denies fever, chills, nausea, vomiting, diarrhea or constipation. Denies dysuria , frequency, urgency and hematuria. Allergies: None Past surgical history: Cholecystectomy Social History: No alcohol, tobacco or drug use reported - Physicial Exam PE: 02/25/18 21:15 Constitutional: Awake, alert, oriented. No acute distress. Head: Normocephalic. Atraumatic Eyes: PERRL. EOMI. Conjunctivae are not pale. ENT: Mucous membranes are moist and intact. Posterior pharynx without exudates or erythema. Uvula midline. Neck: Supple. Full ROM. No lymphadenopathy. Cardiovascular: (+) Systolic ejection murmur. Regular rate. Regular rhythm. S1 , S2 regular. Distal pulses are 2+ and symmetric. Pulmonary/Chest: No evidence of respiratory distress. Clear to auscultation bilaterally No wheezing, rales or rhonchi. Abdominal: Soft and non-distended. There is no tenderness. No rebound, guarding or rigidity. No organomegaly. No palpable masses. Good bowel sounds. Back: No CVA tenderness. Musculoskeletal: (+) Bilateral lower extremity lymphodema below the knee. No cyanosis. No clubbing. Full range of motion in all extremities. Nocalf tenderness. Radial/pedal pulses are intact and 2+ bilaterally Skin: Skin is warm and dry. No petechiae. No purpura. Neurological: Alert and oriented to person, place, and time. Cranial nerves II -XII are grossly intact. Normal speech. Strength is grossly symmetric. No sensory deficits. Psychiatric: Good eye contact. Normal interaction, affect and behavior. <Buzz Escobedo - Last Filed: 02/25/18 21:15> - Resident Resident Name: Robin Enriquez - ED Attending Attestation I have performed the following: I have examined & evaluated the patient, The case was reviewed & discussed with the resident, I agree w/resident's findings & plan, Exceptions are as noted - Medical Decision Making 02/25/18 20:55 I, Dr. Vicky Sheridan, DO, attest that this document has been prepared under my direction and personally reviewed by me in its entirety. I further attest, that it accurately reflects all work, treatment, procedures and medical decision -making performed by me. 02/25/18 20:56 a/p: 87yo female with generalized weakness today -unable to get up from the chair -b/l LE cellulitis -hx of UTI with similar presentation a year ago -will straight cath for ua -will send cultures -will start iv abx for cellulitis 02/25/18 21:19 mildly elevated ckmb, no cp ekg without acute findings hx of afib 02/25/18 21:20 resident discussed the case with sujit who accepts the patient to service iv abx for leg cellulitis started <Vicky Sheridan - Last Filed: 02/25/18 21:20> Heart Score/ECG Review - ECG Intrepretation Comment:: 02/25/18 20:55 afib at 62, R axis, t wave flattening diffusely, no acute st changes <Vicky Sheridan - Last Filed: 02/25/18 21:20>
--- NOTE | 2018-02-25 21:15 | PN ---
Teaching Attending Note Name of Resident: Amanda Lyons ATTENDING PHYSICIAN STATEMENT I saw and evaluated the patient. I reviewed the resident's note and discussed the case with the resident. I agree with the resident's findings and plan as documented. SUBJECTIVE: Patient is an 87 year old woman with a PMH of hypertension, hyperlipidemia, a- fib (not on AC), chronic lymphedema who presents to the ER with complaints of weakness. The patient is with her daughter who provides some of the history. The daughter states that the patient has had worsening weakness since yesterday. She has had difficulty getting out of bed but her appetite is good. She denies fever, chills, nausea, vomiting, cough, dysuria, but admits to worsening swelling and redness in her lower extremities. OBJECTIVE: Alert and upbeat Vital Signs Period Temp Pulse Resp BP Sys/[place]k Pulse Ox Last 24 Hr 99.6 F 82 18 147/46 97 HEENT: No Jaundice, Bilateral eye redness and conjunctival injection; nor discharge, PERRLA, EOMI. Edentulous. Normocephalic, atraumatic. External ears are normal and hearing is grossly intact. No nasal discharge. Neck: Supple, nontender. No palpable adenopathy or thyromegaly. No JVD Chest: Good effort. Clear to auscultation and percussion. Heart: Irregular. No S3, rub or murmur Abdomen: Not distended, soft, nontender and no HSM. No rebound or guarding. Normoactive bowel sounds. Ext: Peripheral pulses intact. Chronic lymphedema, erythema with mild tenderness on both legs. Skin: Warm and dry. No petechiae, rash or ecchymosis. Neuro: Alert. Oriented x3. CN 2-12 grossly intact. Sensation grossly intact in all four extremities and DTR are symmetric. Current Medications Generic Name Dose Route Start Last Admin Trade Name Freq PRN Reason Stop Dose Admin Clindamycin Phosphate 600 mg in 50 mls @ 100 mls/hr 02/25/18 20:48 Cleocin 600 Mg Premix Ivpb - IVPB 02/25/18 21:17 ONCE ONE Protocol Home Medications Medication Instructions Recorded Allopurinol [Zyloprim -] 100 mg PO DAILY 02/25/18 Aspirin [ASA -] 81 mg PO DAILY 02/25/18 Atorvastatin Calcium [Lipitor] 20 mg PO HS 02/25/18 Cholecalciferol (Vitamin D3) 400 unit PO DAILY 02/25/18 [Vitamin D3 -] Digoxin 125 mcg PO DAILY 02/25/18 Diltiazem HCl [Cartia Xt] 180 mg PO DAILY 02/25/18 Losartan Potassium 100 mg PO DAILY 02/25/18 Magnesium Oxide 400 mg PO DAILY 02/25/18 Metoprolol Succinate [Toprol Xl] 100 mg PO BID 02/25/18 Torsemide 20 mg PO DAILY 02/25/18 Abnormal Lab Results 02/25/18 02/25/18 18:30 18:30 Hgb 10.6 L RDW 20.3 H Monocytes % 12.1 H Chloride 108 H BUN 20 H Total Bilirubin 1.1 H AST 39 H Alkaline Phosphatase 197 H Creatine Kinase 570 H Albumin 3.1 L ASSESSMENT AND PLAN: 1. Leg Cellulitis - Will continue IV Ancef and get TFT, phosphate, Mg and evaluate adrenal function. Blood cultures pending. ECHO from 06/2017 shows normal LV function but poor RV function. No new changes on CXR. Will hold torsamide, reduce dietary salt intake, get leg doppler, check digoxin level, give IV lasix and metolazone and get daily weight. Consult cardiology. Refer to ophthalmology for evaluation of chronic eye redness with itching - will treat with eye drops for now - visine clear eyes. 2. Anemia -Etiology unclear. Do basic anemia work up including serial stool guaiacs, reticulocyte count and iron studies. 3. Obesity - Will provide patient all the necessary assistance , counseling and positive reinforcement to facilitate weight loss. Consult direct marketing specialist. 4. Afib - Rate controlled. Not on AC due to remote GI bleeding. Check digoxin level. 5. DVT prophylaxis - Lovenox 40 mg SQ q 24 hours. 6. Advance directives - Full code
[2018-02-25 21:54] LABS: URINE APPEARANCE CLEAR; URINE BILIRUBIN NEGATIVE (<2.0 mg/dL); URINE COLOR YELLOW; URINE GLUCOSE (UA) NEGATIVE (NEGATIVE); URINE KETONE NEGATIVE (NEGATIVE); URINE LEUK ESTERASE NEGATIVE (NEGATIVE); URINE NITRITE NEGATIVE (NEGATIVE); URINE PROTEIN 1+ (NEGATIVE); URINE UROBILINOGEN NEGATIVE mg/dL (0.2-1.0)
[2018-02-25 21:57] LABS: EPI CELLS RARE /HPF (FEW); URINE BACTERIA FEW /hpf (NONE SEEN); URINE HYALINE CAST 1 /lpf; URINE MUCUS RARE
[2018-02-25] MEDS ORDERED: FUROSEMIDE 40 MG/4 ML INJECTABLE VIAL IVPUSH ONE (23:19)
[2018-02-25] MEDS ORDERED: FUROSEMIDE 40 MG/4 ML INJECTABLE VIAL ONE (23:33)
[2018-02-25] MEDS ORDERED: ATORVASTATIN CA 10 MG TABLET (FP) ONE (23:33)
--- NOTE | 2018-02-25 23:51 | HP ---
CHIEF COMPLAINT: weakness and B/L lower extremity redness and swelling PCP: HISTORY OF PRESENT ILLNESS: 87 y/o female with PMH of HTN, HLD, afib presents to the ED with a three day history of worsening weakness in addition to worsening B/L LE redness and swelling. Patient says shes been having trouble getting around her apt for the past few days and even had trouble getting out of the chair. patient lives at home with her brother and uses a walker to get around. She is able to cook/ clean and do activities of daily living for the most part by herself. She has had no change in her appetite lately and denies any CP/SOB/N/V. Patient has chronic lymphedema but states for the past few days she feels her legs have gotten more swollen and red however she is not experiencing any pain in the legs. ER course was notable for: (1) (2) (3) Recent Travel: none PAST MEDICAL HISTORY: see HPI PAST SURGICAL HISTORY: hysterectomy Social History: Smoking:denies Alcohol:denies Drugs: denies Family History: mother had arthritis and heart issues. Allergies No Known Allergies Allergy (Verified 02/25/18 17:22) HOME MEDICATIONS: Home Medications Medication Instructions Recorded Allopurinol [Zyloprim -] 100 mg PO DAILY 02/25/18 Aspirin [ASA -] 81 mg PO DAILY 02/25/18 Atorvastatin Calcium [Lipitor] 20 mg PO HS 02/25/18 Cholecalciferol (Vitamin D3) 400 unit PO DAILY 02/25/18 [Vitamin D3 -] Digoxin 125 mcg PO DAILY 02/25/18 Diltiazem HCl [Cartia Xt] 180 mg PO DAILY 02/25/18 Losartan Potassium 100 mg PO DAILY 02/25/18 Magnesium Oxide 400 mg PO DAILY 02/25/18 Metoprolol Succinate [Toprol Xl] 100 mg PO BID 02/25/18 Torsemide 20 mg PO DAILY 02/25/18 REVIEW OF SYSTEMS CONSTITUTIONAL: Present: generalized weakness, malaise,Absent: fever, chills, diaphoresis, loss of appetite, weight change HEENT: Absent: rhinorrhea, nasal congestion, throat pain, throat swelling, difficulty swallowing, mouth swelling, ear pain, eye pain, visual changes CARDIOVASCULAR: Absent: chest pain, syncope, palpitations, irregular heart rate, lightheadedness , peripheral edema RESPIRATORY: Absent: cough, shortness of breath, dyspnea with exertion, orthopnea, wheezing, stridor, hemoptysis GASTROINTESTINAL: Absent: abdominal pain, abdominal distension, nausea, vomiting, diarrhea, constipation, melena, hematochezia GENITOURINARY: Absent: dysuria, frequency, urgency, hesitancy, hematuria, flank pain, genital pain MUSCULOSKELETAL: Absent: myalgia, arthralgia, joint swelling, back pain, neck pain SKIN: Absent: rash, itching, pallor HEMATOLOGIC/IMMUNOLOGIC: Absent: easy bleeding, easy bruising, lymphadenopathy, frequent infections ENDOCRINE: Absent: unexplained weight gain, unexplained weight loss, heat intolerance, cold intolerance NEUROLOGIC: Absent: headache, focal weakness or paresthesias, dizziness, unsteady gait, seizure, mental status changes, bladder or bowel incontinence PSYCHIATRIC: Absent: anxiety, depression, suicidal or homicidal ideation, hallucinations. PHYSICAL EXAMINATION Vital Signs - 24 hr 02/25/18 17:23 Temperature 99.6 F Pulse Rate 82 Respiratory 18 Rate Blood Pressure 147/46 O2 Sat by Pulse 97 Oximetry (%) GENERAL: Awake, alert, and fully oriented, in no acute distress.. EYES: Both lower eyelids are red (chronic according to the patient). NECK: no JVD or lymphadenopathy LUNGS: Breath sounds equal, clear to auscultation bilaterally. No wheezes, and no crackles. No accessory muscle use. HEART: Regular rate and rhythm, normal S1 and S2 without murmur, rub or gallop. ABDOMEN: Soft, nontender, not distended, normoactive bowel sounds, no guarding, no rebound, no masses. No hepatomegaly or splenomegaly. MUSCULOSKELETAL: Normal range of motion at all joints. No bony deformities or tenderness. No CVA tenderness. EXTREMITIES: lower extremities- B/L lymphedema going up to the kness with associated redness/warm and tender to palpation NEUROLOGICAL: Cranial nerves II-XII intact. Normal speech. Normal gait. PSYCHIATRIC: Cooperative. Good eye contact. Appropriate mood and affect. SKIN: Warm, dry, normal turgor, no rashes or lesions noted, normal capillary refill. Laboratory Results - last 24 hr 02/25/18 02/25/18 02/25/18 18:30 18:30 21:31 WBC 8.6 RBC 3.77 Hgb 10.6 L Hct 32.5 MCV 86.1 MCH 28.0 MCHC 32.5 RDW 20.3 H Plt Count 249 MPV 8.4 Absolute Neuts (auto) 6.0 Neutrophils % 69.1 Lymphocytes % 16.4 Monocytes % 12.1 H Eosinophils % 1.8 Basophils % 0.6 Nucleated RBC % 0 Sodium 144 Potassium 3.6 Chloride 108 H Carbon Dioxide 26 Anion Gap 10 BUN 20 H Creatinine 0.9 Creat Clearance w eGFR 59.09 Random Glucose 96 Calcium 8.8 Magnesium 1.9 Total Bilirubin 1.1 H AST 39 H ALT 28 Alkaline Phosphatase 197 H Creatine Kinase 570 H Creatine Kinase Index 1.9 CK-MB (CK-2) 10.98 H Troponin I 0.05 Total Protein 6.4 Albumin 3.1 L Urine Color Yellow Urine Appearance Clear Urine pH 5.0 Ur Specific [place] 1.011 Urine Protein 1+ H Urine Glucose (UA) Negative Urine Ketones Negative Urine Blood Negative Urine Nitrite Negative Urine Bilirubin Negative Urine Urobilinogen Negative Ur Leukocyte Esterase Negative Urine WBC (Auto) <1 Urine RBC (Auto) 1 Ur Epithelial Cells Rare Urine Bacteria Few Hyaline Casts 1 Urine Mucus Rare ASSESSMENT/PLAN: 87 y/o female with PMH of HTN, HLD, afib presents to the ED with a three day history of worsening weakness in addition to worsening B/L LE redness and swelling. #1:Weakness: unclear etiology of patients weakness possibly 2/2 adrenal hypofunction vs. electrolyte imbalance? -head CT ordered to rule out possible CVA though no neurological deficits currently - follow up mag and phos levels -thyroid funciton panel pending -if no improvment, will order cosyntropin test in AM -cardiology consulted #2: Cellulitits: -patient was given clindamycin and ancef in ER -c/w ancef -LE doppler ordered to rule out DVT -ID consulted #3: AFib -c/w digoxin 125 mcg daily #4: HTN: -c/w patients losartan but holding torsemide -added metolazone 2.5 daily -IV lasix 40 ONCE -monitor daily weights #5 HLD: -lipitor 20 daily dispo: med-surg Problem List - Problem (1) Weakness Code(s): R53.1 - WEAKNESS (2) Cellulitis Code(s): L03.90 - CELLULITIS, UNSPECIFIED Qualifiers: Site of cellulitis: extremity Site of cellulitis of extremity: lower extremity Laterality: unspecified laterality Qualified Code(s): L03.119 - Cellulitis of unspecified part of limb (3) Atrial fibrillation Code(s): I48.91 - UNSPECIFIED ATRIAL FIBRILLATION Qualifiers: Atrial fibrillation type: paroxysmal Qualified Code(s): I48.0 - Paroxysmal atrial fibrillation Visit type - Emergency Visit Emergency Visit: Yes Care time: The patient presented to the Emergency Department on the above date and was hospitalized for further evaluation of their emergent condition. - New Patient This patient is new to me today: Yes Date on this admission: 02/26/18 - Critical Care Critical Care patient: No Hospitalist Screening - Colonoscopy Questionnaire Colonoscopy Questionnaire: Colonoscopy Questionnaire - Patient: 50 - 75 years old and never had a screening colonoscopy: Unknown History of colon or rectal polyps, or CA: Unknown History of IBD, Crohn's disease or UC: Unknown History of abdominal radiation therapy as a child: Unknown - Relative: 1 with colon or rectal CA, or polyps at age 60 or younger: Unknown Colon or rectal CA diagnosed at age 45 or younger: Unknown Multiple relatives with colon or rectal CA: Unknown - Outcome: Screening Result: Negative Screen
[2018-02-26] MEDS: CEFAZOLIN 1 GM in DEXTROSE 5%-WATER - 50 ML IVPB SCH ×3 (02:24→18:31)
[2018-02-26] MEDS: ATORVASTATIN CA 20 MG TABLET (FP) PO SCH ×2 (02:26→22:59)
[2018-02-26 03:42] LABS: MAGNESIUM 1.8 mg/dL (1.8-2.4); PHOSPHOROUS 3.6 mg/dL (2.5-4.9)
[2018-02-26] MEDS ORDERED: TETRAHYDROZOLINE HCL EYE DROPS OU PRN (05:04)
[2018-02-26 08:17] LABS: HEMATOCRIT 34.6 % (32.4-45.2); HEMOGLOBIN 11.1 GM/dL (10.7-15.3); MCH 27.6 pg (25.7-33.7); MCHC 32.1 g/dl (32.0-36.0); MEAN CELL VOLUME 85.9 fl (80-96); PLATELET COUNT 223 K/MM3 (134-434); RBC 4.02 M/mm3 (3.60-5.2); RDW 20.4 % (11.6-15.6); WHITE BLOOD COUNT 10.6 K/mm3 (4.0-10.0)
--- NOTE | 2018-02-26 08:19 | PN ---
Teaching Attending Note Name of Resident: Leonardo Bocanegra ATTENDING PHYSICIAN STATEMENT I saw and evaluated the patient. I reviewed the resident's note and discussed the case with the resident. I agree with the resident's findings and plan as documented. SUBJECTIVE: The patient claims that she is feeling better this morning. Her breathing improved. Denies chest pains, palpitations. Still reports mild dyspnea. OBJECTIVE: Vital Signs Temperature 98.2 F 02/26/18 06:31 Pulse Rate 86 02/26/18 06:31 Respiratory Rate 18 02/26/18 06:31 Blood Pressure 155/75 02/26/18 06:31 O2 Sat by Pulse Oximetry (%) 97 02/26/18 02:34 CBCD WBC 10.6 K/mm3 (4.0-10.0) H 02/26/18 08:00 RBC 4.02 M/mm3 (3.60-5.2) 02/26/18 08:00 Hgb 11.1 GM/dL (10.7-15.3) 02/26/18 08:00 Hct 34.6 % (32.4-45.2) 02/26/18 08:00 MCV 85.9 fl (80-96) 02/26/18 08:00 MCHC 32.1 g/dl (32.0-36.0) 02/26/18 08:00 RDW 20.4 % (11.6-15.6) H 02/26/18 08:00 Plt Count 223 K/MM3 (134-434) 02/26/18 08:00 MPV 8.0 fl (7.5-11.1) 02/26/18 08:00 CMP Sodium 144 mmol/L (136-145) 02/25/18 18:30 Potassium 3.6 mmol/L (3.5-5.1) 02/25/18 18:30 Chloride 108 mmol/L (98-107) H 02/25/18 18:30 Carbon Dioxide 26 mmol/L (21-32) 02/25/18 18:30 Anion Gap 10 MMOL/L (8-16) 02/25/18 18:30 BUN 20 mg/dL (7-18) H 02/25/18 18:30 Creatinine 0.9 mg/dL (0.55-1.02) 02/25/18 18:30 Creat Clearance w eGFR 59.09 (>60) 02/25/18 18:30 Random Glucose 96 mg/dL (74-106) 02/25/18 18:30 Calcium 8.8 mg/dL (8.5-10.1) 02/25/18 18:30 Total Bilirubin 1.1 mg/dL (0.2-1.0) H 02/25/18 18:30 AST 39 U/L (15-37) H 02/25/18 18:30 ALT 28 U/L (12-78) 02/25/18 18:30 Alkaline Phosphatase 197 U/L (45-117) H 02/25/18 18:30 Total Protein 6.4 g/dl (6.4-8.2) 02/25/18 18:30 Albumin 3.1 g/dl (3.4-5.0) L 02/25/18 18:30 CARDIAC ENZYMES Creatine Kinase 570 IU/L (26-192) H 02/25/18 18:30 Troponin I 0.05 ng/ml (0.00-0.05) 02/25/18 18:30 Current Medications Generic Name Dose Route Start Last Admin Trade Name Freq PRN Reason Stop Dose Admin Allopurinol 100 mg 02/26/18 10:00 Zyloprim - PO DAILY [facility] Aspirin 81 mg 02/26/18 10:00 Asa - PO DAILY [facility] Atorvastatin Calcium 20 mg 02/26/18 02:30 02/26/18 02:26 Lipitor - PO 20 mg HS NOEMÍ Administration Cholecalciferol 400 unit 02/26/18 10:00 Vitamin D3 - PO DAILY [facility] Digoxin 0.125 mg 02/26/18 10:00 Lanoxin - PO DAILY [facility] Diltiazem HCl 180 mg 02/26/18 10:00 Cardizem Cd - PO DAILY [facility] Enoxaparin Sodium 40 mg 02/26/18 10:00 Lovenox - SQ DAILY [facility] Cefazolin Sodium 1 gm/ 50 mls @ 100 mls/hr 02/26/18 02:00 02/26/18 02:24 Dextrose IVPB 100 mls/hr Q8H-IV NOEMÍ Administration Losartan Potassium 100 mg 02/26/18 10:00 Losartan Potassium PO DAILY NOEMÍ Magnesium Oxide 400 mg 02/26/18 10:00 Mag-Ox - PO DAILY [facility] Metolazone 2.5 mg 02/26/18 09:30 Zaroxolyn - PO 0930 NOEMÍ Metoprolol Succinate 100 mg 02/26/18 10:00 Toprol Xl - PO BID NOEMÍ Tetrahydrozoline HCl 1 drop 02/26/18 05:04 Visine - OU BID PRN DRY EYES Home Medications Medication Instructions Recorded Allopurinol [Zyloprim -] 100 mg PO DAILY 02/25/18 Aspirin [ASA -] 81 mg PO DAILY 02/25/18 Atorvastatin Calcium [Lipitor] 20 mg PO HS 02/25/18 Cholecalciferol (Vitamin D3) 400 unit PO DAILY 02/25/18 [Vitamin D3 -] Digoxin 125 mcg PO DAILY 02/25/18 Diltiazem HCl [Cartia Xt] 180 mg PO DAILY 02/25/18 Losartan Potassium 100 mg PO DAILY 02/25/18 Magnesium Oxide 400 mg PO DAILY 02/25/18 Metoprolol Succinate [Toprol Xl] 100 mg PO BID 02/25/18 Torsemide 20 mg PO DAILY 02/25/18 PE: per resident's note Lower Extremeties: 3 plus edema, with swelling and erythema of LEs, pulses are positive ASSESSMENT AND PLAN: Patient is a 87 y/o female with PMHx of HTN, HLD, afib.(not on AC bc of GI bleed), permanant pacemaker and chronic Lymededma presents to the ED with a three day history of worsening weakness of B/L LEs presented with redness and swelling of LEs. # Acute BL lower extremity Cellulitis: on IV antibiotics Cefazolin # Anemia:Etiology unclear. # Obesity: weight loss consult with meat cooler. # Afib : Rate controlled. Not on AC due to remote GI bleeding. Check digoxin level. also pt.has PPM DVT prophylaxis: Lovenox 40 mg Advance directives - Full code
[2018-02-26 08:40] LABS: CHLORIDE 106 mmol/L (98-107); POTASSIUM 3.2 mmol/L (3.5-5.1); SODIUM 142 mmol/L (136-145)
[2018-02-26 08:54] LABS: ALBUMIN 3.1 g/dl (3.4-5.0); ALK PHOS 205 U/L (45-117); ANION GAP 9 MMOL/L (8-16); BILIRUBIN,TOTAL 1.3 mg/dL (0.2-1.0); BLOOD UREA NITROGEN 18 mg/dL (7-18); CALCIUM 8.8 mg/dL (8.5-10.1); CO2 27 mmol/L (21-32); GLUCOSE,RANDOM 113 mg/dL (74-106); SGOT/AST 36 U/L (15-37); SGPT/ALT 27 U/L (12-78); TOT PROT 6.6 g/dl (6.4-8.2)
[2018-02-26] MEDS ORDERED: TORSEMIDE 20 MG TABLET (FP) PO SCH (10:00)
[2018-02-26] MEDS ORDERED: LOSARTAN POTASSIUM 100 MG TABLET PO SCH (10:00)
[2018-02-26] MEDS ORDERED: ENOXAPARIN NA (PORCINE) 40 MG/0.4 ML DISP.SYRIN SQ SCH (10:00)
[2018-02-26] MEDS: MAGNESIUM OXIDE 400 MG TABLET (FP) PO SCH (10:11)
[2018-02-26] MEDS: DIGOXIN 0.125 MG TABLET (FP) PO SCH (10:12)
[2018-02-26] MEDS: ASPIRIN 81 MG CHEWABLE TABLETS PO SCH (10:12)
[2018-02-26] MEDS: ALLOPURINOL 100 MG TABLET (FP) PO SCH (10:12)
[2018-02-26] MEDS: CHOLECALCIFEROL (VITAMIN D3) 400 UNIT TABLET (FP) PO SCH (10:13)
[2018-02-26] MEDS ORDERED: POTASSIUM CHLORIDE TABS 20 MEQ TABLET.ER (FP) PO ONE (10:38)
[2018-02-26] MEDS ORDERED: PT OWN MED DRAWER 7, Y5N ONE ×2 (11:05→11:23)
[2018-02-26] MEDS ORDERED: ceFAZolin SODIUM 1 GM VIAL ONE ×2 (11:24→18:28)
[2018-02-26] MEDS ORDERED: DEXTROSE 5%-WATER - 50 ML IVPB ONE ×2 (11:24→18:28)
--- NOTE | 2018-02-26 11:54 | EKG ---
Test Reason : Blood Pressure : / mmHG Vent. Rate : 062 BPM Atrial Rate : 062 BPM P-R Int : 000 ms QRS Dur : 078 ms QT Int : 364 ms P-R-T Axes : 000 090 199 degrees QTc Int : 369 ms POOR DATA QUALITY, INTERPRETATION MAY BE ADVERSELY AFFECTED ATRIAL FIBRILLATION RIGHTWARD AXIS ABNORMAL ECG WHEN COMPARED WITH ECG OF 04-JUL-2017 21:52, VENT. RATE HAS DECREASED BY 63 BPM T WAVE INVERSION MORE EVIDENT IN INFERIOR LEADS T WAVE INVERSION NOW EVIDENT IN ANTERIOR LEADS Confirmed by GALINA HOOD, JANET ([id number]) on 02/26/2018 11:54:15 AM Referred By: Confirmed By:JANET MOJICA MD
[2018-02-26] MEDS: METOLAZONE 2.5 MG TABLET (FP) PO SCH (12:44)
--- NOTE | 2018-02-26 13:14 | CON.CARD ---
Consult Consult Specialty:: cardiology Referred by:: Shayna Reason for Consultation:: Shortness of breath and generalized weakness - History of Present Illness Chief Complaint: Shortness of breath History of Present Illness: The patient is an 87-year-old female, mentally intact, history of hypertension, hyperlipidemia, chronic atrial fibrillation (not on anticoagulation because of GI bleed in her remote past, permanent pacemaker, chronic lymphedema, now admitted with generalized weakness and shortness of breath. X The patient claims that she is feeling better this morning. Her breathing improved. Denies chest pains, palpitations. Still reports mild dyspnea. 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: Yes: CVA, Other (h/o bifrontal craniotomies) Cardio/Vascular: Yes: AFIB, HTN, Hyperlipdemia Gastrointestinal: Yes: GI Bleed Rheumatology: Yes: Other (b/l knee pain) - Past Surgical History Past Surgical History: Yes: Craniotomy - Alcohol/Substance Use Hx Alcohol Use: No - Smoking History Smoking history: Former smoker Have you smoked in the past 12 months: No Home Medications - Allergies Allergies/Adverse Reactions: Allergies Allergy/AdvReac Type Severity Reaction Status Date / Time No Known Allergies Allergy Verified 02/25/18 17:22 - Home Medications Home Medications: Ambulatory Orders Allopurinol [Zyloprim -] 100 mg PO DAILY 02/25/18 Aspirin [ASA -] 81 mg PO DAILY 02/25/18 Atorvastatin Calcium [Lipitor] 20 mg PO HS 02/25/18 Cholecalciferol (Vitamin D3) [Vitamin D3 -] 400 unit PO DAILY 02/25/18 Digoxin 125 mcg PO DAILY 02/25/18 Diltiazem HCl [Cartia Xt] 180 mg PO DAILY 02/25/18 Losartan Potassium 100 mg PO DAILY 02/25/18 Magnesium Oxide 400 mg PO DAILY 02/25/18 Metoprolol Succinate [Toprol Xl] 100 mg PO BID 02/25/18 Torsemide 20 mg PO DAILY 02/25/18 Review of Systems - Review of Systems Constitutional: reports: Lethargy, Malaise Eyes: reports: No Symptoms HENT: reports: No Symptoms Neck: reports: No Symptoms Cardiovascular: reports: Shortness of Breath Respiratory: reports: SOB Gastrointestinal: reports: No Symptoms Genitourinary: reports: No Symptoms Breasts: reports: No Symptoms Reported Musculoskeletal: reports: No Symptoms Integumentary: reports: No Symptoms Neurological: reports: No Symptoms Endocrine: reports: No Symptoms Hematology/Lymphatic: reports: No Symptoms Psychiatric: reports: No Symptoms Vital Signs: Vital Signs Temperature 98.5 F 02/26/18 10:05 Pulse Rate 86 02/26/18 10:12 Respiratory Rate 18 02/26/18 10:05 Blood Pressure 170/89 02/26/18 10:05 O2 Sat by Pulse Oximetry (%) 97 02/26/18 02:34 Constitutional: Yes: Well Nourished, No Distress, Calm Eyes: Yes: WNL, Conjunctiva Clear, EOM Intact HENT: Yes: WNL, Atraumatic, Normocephalic Neck: Yes: WNL, Supple, Trachea Midline Respiratory: Yes: SOB, Other (Decreased breath sounds at bases. No rales/wheezes ) Gastrointestinal: Yes: WNL, Normal Bowel Sounds, Soft Renal/: Yes: WNL Cardiovascular: Yes: Pulse Irregular JVD: No Carotid Bruit: No PMI: Non-Displaced Heart Sounds: Yes: S1, S2 Murmur: Yes: Systolic Murmur, Grade 2 Musculoskeletal: Yes: WNL Extremities: Yes: Erythema Edema: LLE: 1+, RLE: 1+ Peripheral Pulses WNL: No Peripheral Pulses: 1+ Left Carotid, 1+ Right Carotid, 1+ Left Femoral, 1+ Right Femoral, 1+ Left Popliteal, 1+ Right Popliteal, 1+ Left Doralis Pedis, 1+ Right Dorsalis Pedis Integumentary: Yes: WNL Neurological: Yes: WNL ...Motor Strength: WNL Psychiatric: Yes: WNL - Other Data Labs, Other Data: CBC, BMP 02/26/18 08:00 02/26/18 08:00 Troponin, BNP 02/25/18 02/26/18 18:30 02:42 Troponin I 0.05 B-Natriuretic Peptide 1987.37 H Troponin, BNP 02/25/18 02/26/18 18:30 02:42 Troponin I 0.05 B-Natriuretic Peptide 1987.37 H Assessment/Plan 87-year-old female with a history of hypertension, hyperlipidemia, chronic atrial fibrillation, not on anticoagulation because of prior GI bleed, permanent pacemaker, chronic lymphedema, now presenting with shortness of breath and worsening leg edema. The patient denies chest pains. She is breathing better this morning. She offers no specific complaints. Would strongly reconsider anticoagulation in this patient with prior stroke in atrial fibrillation. There is no evidence of recent GI bleed. Consider starting with heparin, and advance to Eliquis if there is no evidence of bleed. Please replete potassium. Try to keep it around 4.0. Start Lasix 40 mg IV twice daily. Please arrange for an echocardiogram. Low-sodium diet. The patient is stable.
[2018-02-26 13:38] LABS: MAGNESIUM 1.7 mg/dL (1.8-2.4); PHOSPHOROUS 3.4 mg/dL (2.5-4.9)
--- NOTE | 2018-02-26 14:31 | PN ---
Physical Exam: SUBJECTIVE: Patient is an 87 y/o female with medical history of HTN, HLD, Afib not on anticoagulation, presents with weakness worse on the left for the past three days and B/L lower extremity erythema and edema with underlying chronic lymphedema. Today she states she feels "weak all over". OBJECTIVE: Vital Signs Period Temp Pulse Resp BP Sys/Polk Pulse Ox Last 24 Hr 98.2 F-99.6 F 80-87 18-18 145-170/46-89 97-99 GENERAL: The patient is awake, alert, and fully oriented, in no mild distress. HEAD: Normal with no signs of trauma. EYES: PERRL, extraocular movements intact, sclera anicteric, conjunctiva clear. ENT: Oropharynx clear without exudates, moist mucous membranes. NECK: Supple, without lymphadenopathy. LUNGS: Breath sounds equal, clear to auscultation bilaterally, no wheezes, no crackles. HEART: Regular rate and rhythm, S1, S2 with holosystolic murmur appreciated ABDOMEN: Soft, nontender, nondistended, normoactive bowel sounds, no hepatosplenomegaly. EXTREMITIES: 2+ radial pulses B/L, 1+ DP pulses B/L. NEUROLOGICAL: Cranial nerves II through XII grossly intact. Normal speech. PSYCH: Appropriate mood and affect upon my exam today. SKIN: B/L legs erythematous, edematous 3+ pitting and tender. Cellulitis margins outlined on both legs. Laboratory Results - last 24 hr 02/25/18 02/25/18 02/25/18 18:30 18:30 21:31 WBC 8.6 RBC 3.77 Hgb 10.6 L Hct 32.5 MCV 86.1 MCH 28.0 MCHC 32.5 RDW 20.3 H Plt Count 249 MPV 8.4 Absolute Neuts (auto) 6.0 Neutrophils % 69.1 Lymphocytes % 16.4 Monocytes % 12.1 H Eosinophils % 1.8 Basophils % 0.6 Nucleated RBC % 0 Sodium 144 Potassium 3.6 Chloride 108 H Carbon Dioxide 26 Anion Gap 10 BUN 20 H Creatinine 0.9 Creat Clearance w eGFR 59.09 Random Glucose 96 Calcium 8.8 Phosphorus Magnesium 1.9 Total Bilirubin 1.1 H AST 39 H ALT 28 Alkaline Phosphatase 197 H Creatine Kinase 570 H Creatine Kinase Index 1.9 CK-MB (CK-2) 10.98 H Troponin I 0.05 B-Natriuretic Peptide Total Protein 6.4 Albumin 3.1 L TSH Urine Color Yellow Urine Appearance Clear Urine pH 5.0 Ur Specific Brady 1.011 Urine Protein 1+ H Urine Glucose (UA) Negative Urine Ketones Negative Urine Blood Negative Urine Nitrite Negative Urine Bilirubin Negative Urine Urobilinogen Negative Ur Leukocyte Esterase Negative Urine WBC (Auto) <1 Urine RBC (Auto) 1 Ur Epithelial Cells Rare Urine Bacteria Few Hyaline Casts 1 Urine Mucus Rare Digoxin 02/26/18 02/26/18 02/26/18 02:42 02:42 02:52 WBC RBC Hgb Hct MCV MCH MCHC RDW Plt Count MPV Absolute Neuts (auto) Neutrophils % Lymphocytes % Monocytes % Eosinophils % Basophils % Nucleated RBC % Sodium Potassium Chloride Carbon Dioxide Anion Gap BUN Creatinine Creat Clearance w eGFR Random Glucose Calcium Phosphorus 3.6 Magnesium 1.8 Total Bilirubin AST ALT Alkaline Phosphatase Creatine Kinase Creatine Kinase Index CK-MB (CK-2) Troponin I B-Natriuretic Peptide 1987.37 H Total Protein Albumin TSH 1.47 Urine Color Urine Appearance Urine pH Ur Specific Brady Urine Protein Urine Glucose (UA) Urine Ketones Urine Blood Urine Nitrite Urine Bilirubin Urine Urobilinogen Ur Leukocyte Esterase Urine WBC (Auto) Urine RBC (Auto) Ur Epithelial Cells Urine Bacteria Hyaline Casts Urine Mucus Digoxin 02/26/18 02/26/18 02/26/18 08:00 08:00 08:00 WBC 10.6 H RBC 4.02 Hgb 11.1 Hct 34.6 MCV 85.9 MCH 27.6 MCHC 32.1 RDW 20.4 H Plt Count 223 MPV 8.0 Absolute Neuts (auto) Neutrophils % Lymphocytes % Monocytes % Eosinophils % Basophils % Nucleated RBC % Sodium 142 Potassium 3.2 L Chloride 106 Carbon Dioxide 27 Anion Gap 9 BUN 18 Creatinine 1.0 Creat Clearance w eGFR 52.33 Random Glucose 113 H Calcium 8.8 Phosphorus 3.4 Magnesium 1.7 L Total Bilirubin 1.3 H AST 36 ALT 27 Alkaline Phosphatase 205 H Creatine Kinase Creatine Kinase Index CK-MB (CK-2) Troponin I B-Natriuretic Peptide Total Protein 6.6 Albumin 3.1 L TSH Urine Color Urine Appearance Urine pH Ur Specific Brady Urine Protein Urine Glucose (UA) Urine Ketones Urine Blood Urine Nitrite Urine Bilirubin Urine Urobilinogen Ur Leukocyte Esterase Urine WBC (Auto) Urine RBC (Auto) Ur Epithelial Cells Urine Bacteria Hyaline Casts Urine Mucus Digoxin 0.89 Active Medications Generic Name Dose Route Start Last Admin Trade Name Freq PRN Reason Stop Dose Admin Allopurinol 100 mg 02/26/18 10:00 02/26/18 10:12 Zyloprim - PO 100 mg DAILY NOEMÍ Administration Aspirin 81 mg 02/26/18 10:00 02/26/18 10:12 Asa - PO 81 mg DAILY NOEMÍ Administration Atorvastatin Calcium 20 mg 02/26/18 02:30 02/26/18 02:26 Lipitor - PO 20 mg HS NOEMÍ Administration Cholecalciferol 400 unit 02/26/18 10:00 02/26/18 10:13 Vitamin D3 - PO 400 unit DAILY NOEMÍ Administration Digoxin 0.125 mg 02/26/18 10:00 02/26/18 10:12 Lanoxin - PO 0.125 mg DAILY NOEMÍ Administration Diltiazem HCl 180 mg 02/26/18 10:00 02/26/18 10:12 Cardizem Cd - PO 180 mg DAILY NOEMÍ Administration Enoxaparin Sodium 40 mg 02/26/18 10:00 02/26/18 10:11 Lovenox - SQ 40 mg DAILY [facility] Administration Cefazolin Sodium 1 gm/ 50 mls @ 100 mls/hr 02/26/18 02:00 02/26/18 11:27 Dextrose IVPB 100 mls/hr Q8H-IV NOEMÍ Administration Losartan Potassium 100 mg 02/26/18 12:47 Cozaar - PO DAILY NOEMÍ Magnesium Oxide 400 mg 02/26/18 10:00 02/26/18 10:11 Mag-Ox - PO 400 mg DAILY NOEMÍ Administration Metolazone 2.5 mg 02/26/18 09:30 02/26/18 12:44 Zaroxolyn - PO Not Given 929 [facility] Metoprolol Succinate 100 mg 02/26/18 10:00 02/26/18 10:12 Toprol Xl - PO 100 mg BID NOEMÍ Administration Tetrahydrozoline HCl 1 drop 02/26/18 05:04 Visine - OU BID PRN DRY EYES ASSESSMENT/PLAN: Patient is an 87 y/o female with medical history of HTN, HLD, Afib not on anticoagulation, presents with weakness worse on the left for the past three days and B/L lower extremity erythema and edema with underlying chronic lymphedema. Admitted for cellulitis of B/L lower extremities and weakness. Cellulitis B/L lower extremities -Patient started on Ancef 1gm IV Q8H -F/U ID consult (Dr. Coats) -Lower extremity doppler shows no evidence of DVT B/L legs Weakness -Unclear etiology. May be secondary to infectious cause (cellulitis) -TSH 1.47. F/U T3, free T4 -UA showed 1+ protein -F/U Cosyntropin stimulation test to rule out adrenal insufficiency Afib -Continue home medication: Digoxin 0.125mg PO QD -Continue home medication: Metoprolol Succinate 100mg PO BID -Cardiology consult (Dr. Gramajo) appreciated: Will begin Heparin drip without bolus for anticoagulation and will progress to Elequis. PT/INR ordered. Rectal exam done, stool for occult blood sent to lab. Will F/U results. -F/U cardiac ECHO Hypokalemia -Potassium 3.2 -Repleted wth 40mg PO K-Dur. Will trend CMP. -K-Dur 20mg PO BID for three days. -As per Cardiology consult, will maintain K+ around 4.0 HTN -Continue home medication: Losartan 100mg PO QD -Continue home medication: Diltiazem 180mg PO QD -Metalazone 2.5mg PO HLD -Atorvastatin 20mg PO Infraorbital erythema -Visine eye drops Prophylaxis -Lovenox 40mg QD FEN -No IV fluids -Hypokalemia repleted. Will monitor CMP -Sodium restricted diet Disposition: Continue care on medical-surgical floor Visit type - Emergency Visit Emergency Visit: No - New Patient This patient is new to me today: Yes Date on this admission: 02/26/18 - Critical Care Critical Care patient: No - Discharge Referral Referred to [facility] No
[2018-02-26] MEDS ORDERED: HEPARIN NA (PORCINE) 5,000 UNITS/ML 1ML VIAL IVPUSH PRN (17:29)
[2018-02-26 18:18] LABS: INR 1.28 (0.83-1.09); PROTHROMBIN TIME (PATIENT) 14.5 SEC (9.7-13.0)
[2018-02-26] MEDS: HEPARIN - 25,000 UNIT in SODIUM CHLORIDE 495 ML IV SCH (20:24)
[2018-02-26] MEDS: POTASSIUM CHLORIDE TABS 20 MEQ TABLET.ER (FP) PO SCH (22:59)
[2018-02-27] MEDS ORDERED: DEXTROSE 5%-WATER - 50 ML IVPB ONE ×3 (00:19→16:37)
[2018-02-27] MEDS ORDERED: ceFAZolin SODIUM 1 GM VIAL ONE ×3 (00:19→16:37)
[2018-02-27] MEDS: CEFAZOLIN 1 GM in DEXTROSE 5%-WATER - 50 ML IVPB SCH ×3 (01:38→17:03)
[2018-02-27] MEDS: FUROSEMIDE 40 MG/4 ML INJECTABLE VIAL IVPUSH SCH ×2 (07:02→13:10)
[2018-02-27 07:35] LABS: BASO % 0.6 % (0-2.0); EOS % 3.4 % (0-4.5); HEMATOCRIT 31.8 % (32.4-45.2); HEMOGLOBIN 10.3 GM/dL (10.7-15.3); LYMPH % 25.3 % (8-40); MCH 27.9 pg (25.7-33.7); MCHC 32.4 g/dl (32.0-36.0); MEAN CELL VOLUME 86.3 fl (80-96); MEAN PLT VOLUME 8.4 fl (7.5-11.1); NEUT % 60.7 % (42.8-82.8); PLATELET COUNT 197 K/MM3 (134-434); RBC 3.69 M/mm3 (3.60-5.2); RDW 20.2 % (11.6-15.6); WHITE BLOOD COUNT 7.4 K/mm3 (4.0-10.0)
--- NOTE | 2018-02-27 08:26 | PN ---
Physical Exam: SUBJECTIVE: Patient seen and examined at bedside today. She is sitting in chair in no acute distress. She is unsure if the swelling in her lower extremities is improving. States her weakness is improving. Denies lower extremity pain. Denies fevers, chills, chest pain, palpitations, nausea vomiting, diarrhea, or any bleeding. OBJECTIVE: Vital Signs Period Temp Pulse Resp BP Sys/Polk Pulse Ox Last 24 Hr 97.6 F-98.6 F 71-86 16-20 133-170/61-89 97-98 GENERAL: The patient is awake, alert, and fully oriented, in no acute distress. HEAD: Normal with no signs of trauma. EYES: PERRL, extraocular movements intact, sclera anicteric. ENT: Oropharynx clear without exudates, moist mucous membranes. NECK: Supple without lymphedema. LUNGS: Breath sounds equal, clear to auscultation bilaterally, no wheezes, no crackles. HEART: Irregular rate. +S1, S2 without murmur, rub or gallop. ABDOMEN: Soft, nontender, nondistended, normoactive bowel sounds, no guarding, no rebound, no hepatosplenomegaly. EXTREMITIES: 2+ radial pulses B/L, 1+ DP pulses B/L. NEUROLOGICAL: Cranial nerves II through XII grossly intact. Normal speech PSYCH: Appropriate mood and affect upon my encounter today. SKIN: B/L legs erythematous, edematous 3+ pitting and tender. Cellulitis margins outlined on both legs. Erythema in left leg diminishing from outlined margins. Laboratory Results - last 24 hr 02/26/18 02/26/18 02/26/18 02:42 02:42 08:00 WBC 10.6 H RBC 4.02 Hgb 11.1 Hct 34.6 MCV 85.9 MCH 27.6 MCHC 32.1 RDW 20.4 H Plt Count 223 MPV 8.0 Absolute Neuts (auto) Neutrophils % Lymphocytes % Monocytes % Eosinophils % Basophils % Nucleated RBC % PT with INR INR PTT (Actin FS) Sodium Potassium Chloride Carbon Dioxide Anion Gap BUN Creatinine Creat Clearance w eGFR Random Glucose Calcium Phosphorus Magnesium Total Bilirubin AST ALT Alkaline Phosphatase Total Protein Albumin Free T4 Cope 1.76 Free T3 2.6 Total T3 92.00 Stool Occult Blood Digoxin 02/26/18 02/26/18 02/26/18 08:00 08:00 17:00 WBC RBC Hgb Hct MCV MCH MCHC RDW Plt Count MPV Absolute Neuts (auto) Neutrophils % Lymphocytes % Monocytes % Eosinophils % Basophils % Nucleated RBC % PT with INR 14.50 H INR 1.28 H PTT (Actin FS) 34.0 Sodium 142 Potassium 3.2 L Chloride 106 Carbon Dioxide 27 Anion Gap 9 BUN 18 Creatinine 1.0 Creat Clearance w eGFR 52.33 Random Glucose 113 H Calcium 8.8 Phosphorus 3.4 Magnesium 1.7 L Total Bilirubin 1.3 H AST 36 ALT 27 Alkaline Phosphatase 205 H Total Protein 6.6 Albumin 3.1 L Free T4 Cope Free T3 Total T3 Stool Occult Blood Digoxin 0.89 02/26/18 02/26/18 02/27/18 18:00 19:30 06:30 WBC 7.4 RBC 3.69 Hgb 10.3 L Hct 31.8 L MCV 86.3 MCH 27.9 MCHC 32.4 RDW 20.2 H Plt Count 197 MPV 8.4 Absolute Neuts (auto) 4.5 Neutrophils % 60.7 Lymphocytes % 25.3 D Monocytes % 10.0 Eosinophils % 3.4 D Basophils % 0.6 Nucleated RBC % 0 PT with INR INR PTT (Actin FS) Sodium Potassium Chloride Carbon Dioxide Anion Gap BUN Creatinine Creat Clearance w eGFR Random Glucose Calcium Phosphorus Magnesium Total Bilirubin AST ALT Alkaline Phosphatase Total Protein Albumin Free T4 Cope Free T3 Total T3 Stool Occult Blood Negative Negative Digoxin Active Medications Generic Name Dose Route Start Last Admin Trade Name Freq PRN Reason Stop Dose Admin Allopurinol 100 mg 02/26/18 10:00 02/26/18 10:12 Zyloprim - PO 100 mg DAILY NOEMÍ Administration Aspirin 81 mg 02/26/18 10:00 02/26/18 10:12 Asa - PO 81 mg DAILY NOEMÍ Administration Atorvastatin Calcium 20 mg 02/26/18 02:30 02/26/18 22:59 Lipitor - PO 20 mg HS NOEMÍ Administration Cholecalciferol 400 unit 02/26/18 10:00 02/26/18 10:13 Vitamin D3 - PO 400 unit DAILY NOEMÍ Administration Digoxin 0.125 mg 02/26/18 10:00 02/26/18 10:12 Lanoxin - PO 0.125 mg DAILY NOEMÍ Administration Diltiazem HCl 180 mg 02/26/18 10:00 02/26/18 10:12 Cardizem Cd - PO 180 mg DAILY NOEMÍ Administration Furosemide 40 mg 02/27/18 06:00 02/27/18 07:02 Lasix Injection - IVPUSH 40 mg BID@0600,1400 NOEMÍ Administration Heparin Sodium (Porcine) 1,000 unit 02/26/18 17:29 Heparin - IVPUSH PRN PRN Heparin Cefazolin Sodium 1 gm/ 50 mls @ 100 mls/hr 02/26/18 02:00 02/27/18 01:38 Dextrose IVPB 100 mls/hr Q8H-IV NOEMÍ Administration Heparin Sodium (Porcine) 25, 500 mls @ 20 mls/hr 02/26/18 17:30 02/26/18 20: 24 000 unit/ Sodium Chloride IV 1,000 unit/hr TITR NOEMÍ 20 mls/hr Administration Protocol 1,000 UNIT/HR Losartan Potassium 100 mg 02/26/18 12:47 Cozaar - PO DAILY NOEMÍ Magnesium Oxide 400 mg 02/26/18 10:00 02/26/18 10:11 Mag-Ox - PO 400 mg DAILY NOEMÍ Administration Metolazone 2.5 mg 02/26/18 09:30 02/26/18 12:44 Zaroxolyn - PO Not Given 0930 NOEMÍ Metoprolol Succinate 100 mg 02/26/18 10:00 02/26/18 22:59 Toprol Xl - PO 100 mg BID NOEMÍ Administration Potassium Chloride 20 meq 02/26/18 22:00 02/26/18 22:59 K-Dur - PO 02/28/18 22:00 20 meq BID NOEMÍ Administration Tetrahydrozoline HCl 1 drop 02/26/18 05:04 Visine - OU BID PRN DRY EYES ASSESSMENT/PLAN: Patient is an 87 y/o female with medical history of HTN, HLD, Afib not on anticoagulation, presents with weakness worse on the left for the past three days and B/L lower extremity erythema and edema with underlying chronic lymphedema. Admitted for cellulitis of B/L lower extremities and weakness. Cellulitis B/L lower extremities -Patient started on Ancef 1gm IV Q8H -ID consult (Dr. Magaña) appreciated: Will continue Ancef 1gm IV Q8H -Lower extremity doppler shows no evidence of DVT B/L legs -Silver sulfadiazine cream B/L lower extremities -Legs wrapped in DES bandage B/L for lower extremity edema. Weakness -Unclear etiology. May be secondary to infectious cause (cellulitis) -TSH 1.47 T3 2.6, Total T3 92.0, Free T4 1.76 -UA showed 1+ protein Afib -Continue home medication: Digoxin 0.125mg PO QD -Continue home medication: Metoprolol Succinate 100mg PO BID -Cardiology consult (Dr. Gramajo) appreciated: Begun Heparin drip without bolus for anticoagulation and will progress to Elequis. Goal PTT 60-70. PT 14.5, PTT 34.0, INR 1.28. Rectal exam performed before heparin initiation- negative for occult blood. -F/U Cardiac ECHO Hypokalemia -Potassium 4.1, increased from 3.2 yesterday -K-Dur 20mg PO BID for three days. Will follow CMP. -As per Cardiology consult, will maintain K+ around 4.0 HTN -Continue home medication: Losartan 100mg PO QD -Continue home medication: Diltiazem 180mg PO QD -Metalazone 2.5mg PO HLD -Atorvastatin 20mg PO Infraorbital erythema -Visine eye drops Prophylaxis -Lovenox 40mg QD FEN -No IV fluids -Hypokalemia repleted. Will monitor CMP -Sodium restricted diet Disposition: Continue care on medical-surgical floor Visit type - Emergency Visit Emergency Visit: No - New Patient This patient is new to me today: No - Critical Care Critical Care patient: No - Discharge Referral Referred to [facility] Med [facility].C.: No
[2018-02-27 08:30] LABS: ALBUMIN 2.8 g/dl (3.4-5.0); ANION GAP 7 MMOL/L (8-16); BLOOD UREA NITROGEN 19 mg/dL (7-18); CALCIUM 8.5 mg/dL (8.5-10.1); CHLORIDE 109 mmol/L (98-107); CO2 28 mmol/L (21-32); GLUCOSE,RANDOM 90 mg/dL (74-106); MAGNESIUM 1.9 mg/dL (1.8-2.4); POTASSIUM 4.1 mmol/L (3.5-5.1); SODIUM 144 mmol/L (136-145)
--- NOTE | 2018-02-27 08:33 | PN ---
Teaching Attending Note Name of Resident: Leonardo Bocanegra ATTENDING PHYSICIAN STATEMENT I saw and evaluated the patient. I reviewed the resident's note and discussed the case with the resident. I agree with the resident's findings and plan as documented. SUBJECTIVE: Patient is comfortable with no acute distress. OBJECTIVE: Vital Signs Temperature 97.8 F 02/27/18 07:57 Pulse Rate 83 02/27/18 07:57 Respiratory Rate 16 02/27/18 07:57 Blood Pressure 138/68 02/27/18 07:57 O2 Sat by Pulse Oximetry (%) 98 02/26/18 21:00 CBCD WBC 7.4 K/mm3 (4.0-10.0) 02/27/18 06:30 RBC 3.69 M/mm3 (3.60-5.2) 02/27/18 06:30 Hgb 10.3 GM/dL (10.7-15.3) L 02/27/18 06:30 Hct 31.8 % (32.4-45.2) L 02/27/18 06:30 MCV 86.3 fl (80-96) 02/27/18 06:30 MCHC 32.4 g/dl (32.0-36.0) 02/27/18 06:30 RDW 20.2 % (11.6-15.6) H 02/27/18 06:30 Plt Count 197 K/MM3 (134-434) 02/27/18 06:30 MPV 8.4 fl (7.5-11.1) 02/27/18 06:30 CMP Sodium 142 mmol/L (136-145) 02/26/18 08:00 Potassium 3.2 mmol/L (3.5-5.1) L 02/26/18 08:00 Chloride 106 mmol/L (98-107) 02/26/18 08:00 Carbon Dioxide 27 mmol/L (21-32) 02/26/18 08:00 Anion Gap 9 MMOL/L (8-16) 02/26/18 08:00 BUN 18 mg/dL (7-18) 02/26/18 08:00 Creatinine 1.0 mg/dL (0.55-1.02) 02/26/18 08:00 Creat Clearance w eGFR 52.33 (>60) 02/26/18 08:00 Random Glucose 113 mg/dL (74-106) H 02/26/18 08:00 Calcium 8.8 mg/dL (8.5-10.1) 02/26/18 08:00 Total Bilirubin 1.3 mg/dL (0.2-1.0) H 02/26/18 08:00 AST 36 U/L (15-37) 02/26/18 08:00 ALT 27 U/L (12-78) 02/26/18 08:00 Alkaline Phosphatase 205 U/L (45-117) H 02/26/18 08:00 Total Protein 6.6 g/dl (6.4-8.2) 02/26/18 08:00 Albumin 3.1 g/dl (3.4-5.0) L 02/26/18 08:00 CARDIAC ENZYMES Creatine Kinase 570 IU/L (26-192) H 02/25/18 18:30 Troponin I 0.05 ng/ml (0.00-0.05) 02/25/18 18:30 Current Medications Generic Name Dose Route Start Last Admin Trade Name Freq PRN Reason Stop Dose Admin Allopurinol 100 mg 02/26/18 10:00 02/26/18 10:12 Zyloprim - PO 100 mg DAILY NOEMÍ Administration Aspirin 81 mg 02/26/18 10:00 02/26/18 10:12 Asa - PO 81 mg DAILY NOEMÍ Administration Atorvastatin Calcium 20 mg 02/26/18 02:30 02/26/18 22:59 Lipitor - PO 20 mg HS NOEMÍ Administration Cholecalciferol 400 unit 02/26/18 10:00 02/26/18 10:13 Vitamin D3 - PO 400 unit DAILY NOEMÍ Administration Digoxin 0.125 mg 02/26/18 10:00 02/26/18 10:12 Lanoxin - PO 0.125 mg DAILY NOEMÍ Administration Diltiazem HCl 180 mg 02/26/18 10:00 02/26/18 10:12 Cardizem Cd - PO 180 mg DAILY NOEMÍ Administration Furosemide 40 mg 02/27/18 06:00 02/27/18 07:02 Lasix Injection - IVPUSH 40 mg BID@0600,1400 NOEMÍ Administration Heparin Sodium (Porcine) 1,000 unit 02/26/18 17:29 Heparin - IVPUSH PRN PRN Heparin Cefazolin Sodium 1 gm/ 50 mls @ 100 mls/hr 02/26/18 02:00 02/27/18 01:38 Dextrose IVPB 100 mls/hr Q8H-IV NOEMÍ Administration Heparin Sodium (Porcine) 25, 500 mls @ 20 mls/hr 02/26/18 17:30 02/26/18 20: 24 000 unit/ Sodium Chloride IV 1,000 unit/hr TITR NOEMÍ 20 mls/hr Administration Protocol 1,000 UNIT/HR Losartan Potassium 100 mg 02/26/18 12:47 Cozaar - PO DAILY NOEMÍ Magnesium Oxide 400 mg 02/26/18 10:00 02/26/18 10:11 Mag-Ox - PO 400 mg DAILY NOEMÍ Administration Metolazone 2.5 mg 02/26/18 09:30 02/26/18 12:44 Zaroxolyn - PO Not Given 929 NOEMÍ Metoprolol Succinate 100 mg 02/26/18 10:00 02/26/18 22:59 Toprol Xl - PO 100 mg BID NOEMÍ Administration Potassium Chloride 20 meq 02/26/18 22:00 02/26/18 22:59 K-Dur - PO 02/28/18 22:00 20 meq BID NOEMÍ Administration Tetrahydrozoline HCl 1 drop 02/26/18 05:04 Visine - OU BID PRN DRY EYES Home Medications Medication Instructions Recorded Allopurinol [Zyloprim -] 100 mg PO DAILY 02/25/18 Aspirin [ASA -] 81 mg PO DAILY 02/25/18 Atorvastatin Calcium [Lipitor] 20 mg PO HS 02/25/18 Cholecalciferol (Vitamin D3) 400 unit PO DAILY 02/25/18 [Vitamin D3 -] Digoxin 125 mcg PO DAILY 02/25/18 Diltiazem HCl [Cartia Xt] 180 mg PO DAILY 02/25/18 Losartan Potassium 100 mg PO DAILY 02/25/18 Magnesium Oxide 400 mg PO DAILY 02/25/18 Metoprolol Succinate [Toprol Xl] 100 mg PO BID 02/25/18 Torsemide 20 mg PO DAILY 02/25/18 PE: per resident's note Lower Extremeties: 3 plus edema, with swelling and erythema improved of LEs, pulses are positive ASSESSMENT AND PLAN: Patient is a 87 y/o female with PMHx of HTN, HLD, afib.(not on AC bc of GI bleed), permanant pacemaker and chronic Lymededma presents to the ED with a three day history of worsening weakness of B/L LEs presented with redness and swelling of LEs. # Acute BL lower extremity Cellulitis improving : on IV antibiotics Cefazolin continue, will add Silvadene and Scott bandages bl #LE swelling with edema on Lasix 40mg iv bid #Elevated BNP: 2000, on IV lasix 40mg bid # Anemia:Etiology unclear. will get iron studies, further w/u as an outpatient. # Obesity: weight loss consult with [facility]. # Afib : Rate controlled. on heparin drip will monitor h/h. Check digoxin level. also pt.has PPM DVT prophylaxis: heparin drip Advance directives - Full code
[2018-02-27 08:35] LABS: ALK PHOS 184 U/L (45-117); BILIRUBIN,TOTAL 1.1 mg/dL (0.2-1.0); PHOSPHOROUS 3.2 mg/dL (2.5-4.9); SGOT/AST 27 U/L (15-37); SGPT/ALT 21 U/L (12-78)
[2018-02-27] MEDS: MAGNESIUM OXIDE 400 MG TABLET (FP) PO SCH (09:33)
[2018-02-27] MEDS: POTASSIUM CHLORIDE TABS 20 MEQ TABLET.ER (FP) PO SCH ×2 (09:33→22:38)
[2018-02-27] MEDS: ASPIRIN 81 MG CHEWABLE TABLETS PO SCH (09:33)
[2018-02-27] MEDS: DIGOXIN 0.125 MG TABLET (FP) PO SCH (09:33)
[2018-02-27] MEDS: CHOLECALCIFEROL (VITAMIN D3) 400 UNIT TABLET (FP) PO SCH (09:33)
[2018-02-27] MEDS: LOSARTAN POTASSIUM 50 MG TABLET (FP) PO SCH (09:33)
[2018-02-27] MEDS: METOLAZONE 2.5 MG TABLET (FP) PO SCH (09:33)
[2018-02-27] MEDS: ALLOPURINOL 100 MG TABLET (FP) PO SCH (09:34)
[2018-02-27 09:35] LABS: INR 1.22 (0.83-1.09); PROTHROMBIN TIME (PATIENT) 13.8 SEC (9.7-13.0)
--- NOTE | 2018-02-27 12:59 | PN ---
Progress Note, Physician History of Present Illness: The patient is an 87-year-old female, mentally intact, history of hypertension, hyperlipidemia, chronic atrial fibrillation (not on anticoagulation because of GI bleed in her remote past, permanent pacemaker, chronic lymphedema, now admitted with generalized weakness and shortness of breath. - Current Medication List Current Medications: Active Medications Allopurinol (Zyloprim -) 100 mg PO DAILY COUNTS INCLUDE 234 BEDS AT THE [facility] Last Admin: 02/27/18 09:34 Dose: 100 mg Aspirin (Asa -) 81 mg PO DAILY COUNTS INCLUDE 234 BEDS AT THE [facility] Last Admin: 02/27/18 09:33 Dose: 81 mg Atorvastatin Calcium (Lipitor -) 20 mg PO HS COUNTS INCLUDE 234 BEDS AT THE [facility] Last Admin: 02/26/18 22:59 Dose: 20 mg Cholecalciferol (Vitamin D3 -) 400 unit PO DAILY COUNTS INCLUDE 234 BEDS AT THE [facility] Last Admin: 02/27/18 09:33 Dose: 400 unit Digoxin (Lanoxin -) 0.125 mg PO DAILY COUNTS INCLUDE 234 BEDS AT THE [facility] Last Admin: 02/27/18 09:33 Dose: 0.125 mg Diltiazem HCl (Cardizem Cd -) 180 mg PO DAILY COUNTS INCLUDE 234 BEDS AT THE [facility] Last Admin: 02/27/18 09:34 Dose: 180 mg Furosemide (Lasix Injection -) 40 mg IVPUSH BID@0600,1400 COUNTS INCLUDE 234 BEDS AT THE [facility] Last Admin: 02/27/18 07:02 Dose: 40 mg Heparin Sodium (Porcine) (Heparin -) 1,000 unit IVPUSH PRN PRN PRN Reason: Heparin Cefazolin Sodium 1 gm/ (Dextrose) 50 mls @ 100 mls/hr IVPB Q8H-IV COUNTS INCLUDE 234 BEDS AT THE [facility] Last Admin: 02/27/18 09:34 Dose: 100 mls/hr Heparin Sodium (Porcine) 25, (000 unit/ Sodium Chloride) 500 mls @ 20 mls/hr IV TITR NOEMÍ; Protocol Last Admin: 02/26/18 20:24 Dose: 1,000 unit/hr, 20 mls/hr Losartan Potassium (Cozaar -) 100 mg PO DAILY COUNTS INCLUDE 234 BEDS AT THE [facility] Last Admin: 02/27/18 09:33 Dose: 100 mg Magnesium Oxide (Mag-Ox -) 400 mg PO DAILY COUNTS INCLUDE 234 BEDS AT THE [facility] Last Admin: 02/27/18 09:33 Dose: 400 mg Metolazone (Zaroxolyn -) 2.5 mg PO 0930 COUNTS INCLUDE 234 BEDS AT THE [facility] Last Admin: 02/27/18 09:33 Dose: 2.5 mg Metoprolol Succinate (Toprol Xl -) 100 mg PO BID COUNTS INCLUDE 234 BEDS AT THE [facility] Last Admin: 02/27/18 09:33 Dose: 100 mg Potassium Chloride (K-Dur -) 20 meq PO BID COUNTS INCLUDE 234 BEDS AT THE [facility] Stop: 02/28/18 22:00 Last Admin: 02/27/18 09:33 Dose: 20 meq Silver Sulfadiazine (Silvadene -) 1 applic TP DAILY COUNTS INCLUDE 234 BEDS AT THE [facility] Tetrahydrozoline HCl (Visine -) 1 drop OU BID PRN PRN Reason: DRY EYES - Objective Vital Signs: Vital Signs Temperature 97.8 F 02/27/18 07:57 Pulse Rate 83 02/27/18 09:33 Respiratory Rate 16 02/27/18 07:57 Blood Pressure 138/68 02/27/18 07:57 O2 Sat by Pulse Oximetry (%) 98 02/27/18 09:00 Constitutional: Yes: Well Nourished, No Distress, Calm Eyes: Yes: WNL, Conjunctiva Clear, EOM Intact HENT: Yes: WNL, Atraumatic, Normocephalic Neck: Yes: WNL, Supple, Trachea Midline Cardiovascular: Yes: Pulse Irregular, S1, S2 Respiratory: Yes: WNL, Regular, CTA Bilaterally Gastrointestinal: Yes: WNL, Normal Bowel Sounds, Soft ...Rectal Exam: Yes: Deferred Musculoskeletal: Yes: WNL Edema: LLE: 2+, RLE: 2+ Peripheral Pulses WNL: No Peripheral Pulses: Left Radial: 1+, Right Radial: 1+, Left Doralis Pedis: 1+, Right Dorsalis Pedis: 1+, Left Femoral: 1+, Right Femoral: 1+ Integumentary: Yes: WNL Neurological: Yes: WNL, Alert, Oriented ...Motor Strength: WNL Psychiatric: Yes: WNL Labs: CBC, BMP 02/27/18 06:30 02/27/18 06:30 INR, PTT INR 1.22 (0.83-1.09) H 02/27/18 06:30 Assessment/Plan The patient is an 87-year-old female, mentally intact, history of hypertension, hyperlipidemia, chronic atrial fibrillation (not on anticoagulation because of GI bleed in her remote past, permanent pacemaker, chronic lymphedema, now admitted with generalized weakness and shortness of breath. Heparin was started for atrial fibrillation. There is a hemoglobin drop. No obvious evidence of bleeding. Please continue heparin as currently. Target PTT 6070. Would stop heparin if the hemoglobin continues to drop, and consider a GI evaluation in that case. If the hemoglobin remains stable, would advance Eliquis and stop heparin. The patient is stable and comfortable.
--- NOTE | 2018-02-27 13:48 | PN ---
Progress Note (short form) - Note Progress Note: ID Consult dictated Bilateral LE cellulitis Continue [id number] IVPB q8h Elevation
--- NOTE | 2018-02-27 14:41 | CONS ---
DATE OF CONSULTATION: DATE OF DICTATION: 02/27/2018 HISTORY OF PRESENT ILLNESS: The patient is an 87-year-old female evaluated for bilateral lower extremity cellulitis. She presented to the hospital on February 25, 2018 with complaints of profound weakness and bilateral lower extremity swelling and erythema. Family members had reported that these symptoms usually occur when she has a urinary tract infection. She was noted to have bilateral lower extremity cellulitis. She was empirically treated with clindamycin and cefazolin. At the present time, she has no complaints. She is out of bed to chair. She denies any leg pain. No complaints of fever or chills. She denies any traumatic injury and no reported insect or animal bites or scratches. The patient was last admitted to the hospital in June of 2017 with urinary tract infection. PAST MEDICAL HISTORY: Positive for atrial fibrillation, hypertension, hyperlipidemia, congestive heart failure, osteoarthritis, chronic lower extremity lymphedema. PAST SURGICAL HISTORY: Status post cholecystectomy. ALLERGIES: No known allergies. MEDICATIONS: Allopurinol, aspirin, Lipitor, digoxin, diltiazem, losartan, Toprol. SOCIAL HISTORY: She lives in the community. A former smoker. SYSTEMS REVIEW: Neurologic: No loss of consciousness, seizure activity, or focal weakness. Cardiac: Negative for chest pain or palpitations. Positive for atrial fibrillation. Respiratory: Negative for cough or sputum production. Gastrointestinal: Negative for vomiting or diarrhea. Genitourinary: Positive for urinary tract infections. LABORATORY DATA: White count 7.4, hematocrit 31.8, platelet count 197. BUN 19, creatinine 1.0. Urinalysis less than 1 white cell. Blood and urine cultures negative. PHYSICAL EXAMINATION: General: She is awake, out of bed to chair. She is in no acute distress. Vital signs: Temperature 98.2, blood pressure 125/55, pulse 62 and regular, respirations 18 per minute. HEENT: Sclerae anicteric. Positive ectropion bilaterally. Heart: Heart sounds S1, S2. Lungs: Clear. Abdomen: Obese, soft, nontender. Extremities: Bilateral lower extremity edema. There is confluent erythema present in the lower extremities bilaterally from mid tibia up to the ankle area. Slightly warm to touch, nontender. No lymphangitic streaking. IMPRESSION: 1. Bilateral lower extremity cellulitis. 2. Profound weakness, rule out sepsis. Await final culture results, continue cefazolin 1 g IV piggyback every 8 hours, elevation, analgesics. Thank you for the kind referral. CANDIE WU M.D. [id number]
[2018-02-27] MEDS: HEPARIN - 25,000 UNIT in SODIUM CHLORIDE 495 ML IV SCH (16:20)
[2018-02-27] MEDS: SILVER SULFADIAZINE 1% TOP CREAM 50 GM JAR TP SCH (16:21)
--- NOTE | 2018-02-27 22:22 | ECHO ---
Name: SRUTHISTEPHANIEKANESHARONHILDA Exam:Adult Echocardiogram Study Date: 02/27/2018 02:59 PM Age: 87 yrs Reason For Study: HX ATRIAL FIBRILLATION Height: 66 in Weight: 190 lb BSA: 2.0 m2 MMode/2D Measurements & Calculations IVSd: 1.1 cm Ao root diam: 2.3 cm LVIDd: 4.9 cm LA dimension: 4.3 cm LVIDs: 3.6 cm LVPWd: 0.90 cm EDV(Teich): 110.6 ml LVOT diam: 2.3 cm ESV(Teich): 53.9 ml Doppler Measurements & Calculations MV E max santo: 72.8 cm/sec Ao V2 max: 190.6 cm/sec MV A max santo: 27.2 cm/sec Ao max P.5 mmHg MV E/A: 2.7 Ao V2 mean: 137.5 cm/sec MV dec time: 0.14 sec Ao mean P.4 mmHg Ao V2 VTI: 42.6 cm JIMMY(I,D): 1.9 cm2 JIMMY(V,D): 1.9 cm2 LV V1 max P.1 mmHg MR max santo: 295.3 cm/sec LV V1 mean P.6 mmHg MR max P.0 mmHg LV V1 max: 87.9 cm/sec LV V1 mean: 58.7 cm/sec LV V1 VTI: 19.6 cm SV(LVOT): 82.5 ml TR max santo: 305.2 cm/sec TR max P.5 mmHg PI end-d santo: 81.0 cm/sec Med Peak E' Santo: 6.5 cm/sec Med E/e': 11.2 Lat Peak E' Santo: 6.7 cm/sec Lat E/e': 10.8 Procedure A two-dimensional transthoracic echocardiogram with color flow and Doppler was performed. Left Ventricle The left ventricle is not well visualized. The left ventricular ejection fraction is grossly normal. Regional wall motion abnormalities cannot be excluded due to limited visualization. Right Ventricle The right ventricle is not well visualized. Atria The left atrium is mildly dilated. The right atrium is mildly dilated. Mitral Valve There is mild mitral valve thickening. There is no mitral valve stenosis. There is moderate to severe mitral regurgitation. Tricuspid Valve There is mild tricuspid valve thickening. There is no tricuspid stenosis. There is moderate to severe tricuspid regurgitation. Right ventricular systolic pressure is elevated at 40-50mmHg. Aortic Valve The aortic valve is not well visualized. Mild valvular aortic stenosis. No aortic regurgitation is pr esent. Pulmonic Valve The pulmonic valve is not well visualized. There is no pulmonic valvular stenosis. Trace to mild pulm onic valvular regurgitation. Great Vessels The aortic root is normal size. Pericardium/Pleura There is no pericardial effusion. Interpretation Summary The left atrium is mildly dilated. The right atrium is mildly dilated. There is moderate to severe tricuspid regurgitation. Trace to mild pulmonic valvular regurgitation. The aortic valve is not well visualized. The left ventricle is not well visualized. The left ventricular ejection fraction is grossly normal. Regional wall motion abnormalities cannot be excluded due to limited visualization. There is moderate to severe mitral regurgitation. Right ventricular systolic pressure is elevated at 40-50mmHg. Mild valvular aortic stenosis. MD Nitin García 02/27/2018 04:02 PM
[2018-02-27] MEDS: ATORVASTATIN CA 20 MG TABLET (FP) PO SCH (22:38)
[2018-02-28] MEDS ORDERED: DEXTROSE 5%-WATER - 50 ML IVPB ONE ×3 (01:07→17:12)
[2018-02-28] MEDS ORDERED: ceFAZolin SODIUM 1 GM VIAL ONE ×3 (01:07→17:12)
[2018-02-28] MEDS: CEFAZOLIN 1 GM in DEXTROSE 5%-WATER - 50 ML IVPB SCH ×3 (01:14→17:13)
[2018-02-28] MEDS: FUROSEMIDE 40 MG/4 ML INJECTABLE VIAL IVPUSH SCH ×2 (05:05→13:45)
[2018-02-28 08:34] LABS: BASO % 0.7 % (0-2.0); EOS % 4.5 % (0-4.5); HEMATOCRIT 34.3 % (32.4-45.2); HEMOGLOBIN 11.1 GM/dL (10.7-15.3); LYMPH % 21.7 % (8-40); MCH 27.7 pg (25.7-33.7); MCHC 32.3 g/dl (32.0-36.0); MEAN CELL VOLUME 85.7 fl (80-96); MEAN PLT VOLUME 8.6 fl (7.5-11.1); MONO % 10.3 % (3.8-10.2); NEUT % 62.8 % (42.8-82.8); PLATELET COUNT 212 K/MM3 (134-434); RBC 4.01 M/mm3 (3.60-5.2); RDW 19.7 % (11.6-15.6); WHITE BLOOD COUNT 8.2 K/mm3 (4.0-10.0)
--- NOTE | 2018-02-28 08:44 | PN ---
Progress Note (short form) - Note Progress Note: Patient is comfortable, swelling of LEs improving. Vital Signs Temperature 98.6 F 02/28/18 06:00 Pulse Rate 74 02/28/18 06:00 Respiratory Rate 20 02/28/18 06:00 Blood Pressure 138/86 02/28/18 06:00 O2 Sat by Pulse Oximetry (%) 98 02/27/18 21:00 CBCD WBC 8.2 K/mm3 (4.0-10.0) 02/28/18 07:50 RBC 4.01 M/mm3 (3.60-5.2) 02/28/18 07:50 Hgb 11.1 GM/dL (10.7-15.3) 02/28/18 07:50 Hct 34.3 % (32.4-45.2) 02/28/18 07:50 MCV 85.7 fl (80-96) 02/28/18 07:50 MCHC 32.3 g/dl (32.0-36.0) 02/28/18 07:50 RDW 19.7 % (11.6-15.6) H 02/28/18 07:50 Plt Count 212 K/MM3 (134-434) 02/28/18 07:50 MPV 8.6 fl (7.5-11.1) 02/28/18 07:50 CMP Sodium 144 mmol/L (136-145) 02/27/18 06:30 Potassium 4.1 mmol/L (3.5-5.1) 02/27/18 06:30 Chloride 109 mmol/L (98-107) H 02/27/18 06:30 Carbon Dioxide 28 mmol/L (21-32) 02/27/18 06:30 Anion Gap 7 MMOL/L (8-16) L 02/27/18 06:30 BUN 19 mg/dL (7-18) H 02/27/18 06:30 Creatinine 1.0 mg/dL (0.55-1.02) 02/27/18 06:30 Creat Clearance w eGFR 52.33 (>60) 02/27/18 06:30 Random Glucose 90 mg/dL (74-106) 02/27/18 06:30 Calcium 8.5 mg/dL (8.5-10.1) 02/27/18 06:30 Total Bilirubin 1.1 mg/dL (0.2-1.0) H 02/27/18 06:30 AST 27 U/L (15-37) 02/27/18 06:30 ALT 21 U/L (12-78) 02/27/18 06:30 Alkaline Phosphatase 184 U/L (45-117) H D 02/27/18 06:30 Total Protein 6.0 g/dl (6.4-8.2) L 02/27/18 06:30 Albumin 2.8 g/dl (3.4-5.0) L 02/27/18 06:30 CARDIAC ENZYMES Creatine Kinase 570 IU/L (26-192) H 02/25/18 18:30 Troponin I 0.05 ng/ml (0.00-0.05) 02/25/18 18:30 Current Medications Generic Name Dose Route Start Last Admin Trade Name Freq PRN Reason Stop Dose Admin Allopurinol 100 mg 02/26/18 10:00 02/27/18 09:34 Zyloprim - PO 100 mg DAILY NOEMÍ Administration Aspirin 81 mg 02/26/18 10:00 02/27/18 09:33 Asa - PO 81 mg DAILY NOEMÍ Administration Atorvastatin Calcium 20 mg 02/26/18 02:30 02/27/18 22:38 Lipitor - PO 20 mg HS NOEMÍ Administration Cholecalciferol 400 unit 02/26/18 10:00 02/27/18 09:33 Vitamin D3 - PO 400 unit DAILY NOEMÍ Administration Digoxin 0.125 mg 02/26/18 10:00 02/27/18 09:33 Lanoxin - PO 0.125 mg DAILY NOEMÍ Administration Diltiazem HCl 180 mg 02/26/18 10:00 02/27/18 09:34 Cardizem Cd - PO 180 mg DAILY NOEMÍ Administration Furosemide 40 mg 02/27/18 06:00 02/28/18 05:05 Lasix Injection - IVPUSH 40 mg BID@0600,1400 NOEMÍ Administration Heparin Sodium (Porcine) 1,000 unit 02/26/18 17:29 Heparin - IVPUSH PRN PRN Heparin Cefazolin Sodium 1 gm/ 50 mls @ 100 mls/hr 02/26/18 02:00 02/28/18 01:14 Dextrose IVPB 100 mls/hr Q8H-IV NOEMÍ Administration Heparin Sodium (Porcine) 25, 500 mls @ 20 mls/hr 02/26/18 17:30 02/27/18 16: 20 000 unit/ Sodium Chloride IV 1,000 unit/hr TITR NOEMÍ 20 mls/hr Administration Protocol 1,000 UNIT/HR Losartan Potassium 100 mg 02/26/18 12:47 02/27/18 09:33 Cozaar - PO 100 mg DAILY NOEMÍ Administration Magnesium Oxide 400 mg 02/26/18 10:00 02/27/18 09:33 Mag-Ox - PO 400 mg DAILY NOEMÍ Administration Metolazone 2.5 mg 02/26/18 09:30 02/27/18 09:33 Zaroxolyn - PO 2.5 mg 30 NOEMÍ Administration Metoprolol Succinate 100 mg 02/26/18 10:00 02/27/18 22:38 Toprol Xl - PO 100 mg BID NOEMÍ Administration Potassium Chloride 20 meq 02/26/18 22:00 02/27/18 22:38 K-Dur - PO 02/28/18 10:00 20 meq BID NOEÍM Administration Silver Sulfadiazine 1 applic 02/27/18 12:00 02/27/18 16:21 Silvadene - TP 1 applic DAILY NOEMÍ Administration Tetrahydrozoline HCl 1 drop 02/26/18 05:04 Visine - OU BID PRN DRY EYES Home Medications Medication Instructions Recorded Allopurinol [Zyloprim -] 100 mg PO DAILY 02/25/18 Aspirin [ASA -] 81 mg PO DAILY 02/25/18 Atorvastatin Calcium [Lipitor] 20 mg PO HS 02/25/18 Cholecalciferol (Vitamin D3) 400 unit PO DAILY 02/25/18 [Vitamin D3 -] Digoxin 125 mcg PO DAILY 02/25/18 Diltiazem HCl [Cartia Xt] 180 mg PO DAILY 02/25/18 Losartan Potassium 100 mg PO DAILY 02/25/18 Magnesium Oxide 400 mg PO DAILY 02/25/18 Metoprolol Succinate [Toprol Xl] 100 mg PO BID 02/25/18 Torsemide 20 mg PO DAILY 02/25/18 Intake & Output 02/25/18 02/26/18 02/27/18 02/28/18 23:59 23:59 23:59 23:59 Intake Total 550 1160 290 Output Total 300 Balance 550 860 290 Weight 86.183 kg 86.183 kg 85.332 kg GENERAL: The patient is awake, alert, and fully oriented, in no acute distress. HEAD: Normal with no signs of trauma. EYES: PERRL, extraocular movements intact, sclera anicteric. ENT: Oropharynx clear without exudates, moist mucous membranes. NECK: Supple without lymphedema. LUNGS: decreased BS BL otherwise CTA BLar to auscultation bilaterally, no wheezes, no crackles. HEART: Irregular rate. +S1, S2 without murmur, rub or gallop. ABDOMEN: Soft, nontender, nondistended, normoactive bowel sounds, no guarding, no rebound, no hepatosplenomegaly. NEUROLOGICAL: Cranial nerves II through XII grossly intact. Normal speech PSYCH: Appropriate mood and affect upon my encounter today. SKIN: B/L legs erythematous, edematous 3+ pitting and tender. Cellulitis margins outlined on both legs. Erythema in left leg diminishing from outlined margins. Lower Extremeties: 3 plus edema, with swelling and erythema improved of LEs, pulses are positive ASSESSMENT AND PLAN: Patient is a 87 y/o female with PMHx of HTN, HLD, afib.(not on AC bc of GI bleed), permanant pacemaker and chronic Lymededma presents to the ED with a three day history of worsening weakness of B/L LEs presented with redness and swelling of LEs. # Acute BL lower extremity Cellulitis improving : on IV antibiotics Cefazolin continue, will add Silvadene and Scott bandages bl #LE swelling with edema on Lasix 40mg iv bid #Elevated BNP: 2000, on IV lasix 40mg bid continue # Afib : Rate controlled on heparin drip will monitor h/h. Check digoxin level. also pt.has PPM There is a hemoglobin drop with no obvious evidence of bleeding. Heparin Target PTT 6070. If Hemoglobin continues to drop Would stop heparin and will consider a GI evaluation, If the hemoglobin remains stable, would advance to Noac Eliquis and stop heparin. # Anemia:Etiology unclear. will get iron studies, further w/u as an outpatient. # Obesity: weight loss consult with nitro worker. DVT prophylaxis: heparin drip Advance directives - Full code Visit type - Emergency Visit Emergency Visit: Yes ED Registration Date: 02/25/18 Care time: The patient presented to the Emergency Department on the above date and was hospitalized for further evaluation of their emergent condition. - New Patient This patient is new to me today: No - Critical Care Critical Care patient: No - Discharge Referral Referred to [facility] Med P.C.: No
[2018-02-28 09:02] LABS: ALBUMIN 3.1 g/dl (3.4-5.0); ANION GAP 10 MMOL/L (8-16); BLOOD UREA NITROGEN 22 mg/dL (7-18); CALCIUM 9.1 mg/dL (8.5-10.1); CHLORIDE 101 mmol/L (98-107); CO2 31 mmol/L (21-32); GLUCOSE,RANDOM 97 mg/dL (74-106); POTASSIUM 3.9 mmol/L (3.5-5.1); SODIUM 142 mmol/L (136-145)
[2018-02-28 09:06] LABS: ALK PHOS 200 U/L (45-117); SGOT/AST 27 U/L (15-37); SGPT/ALT 18 U/L (12-78); TOT PROT 6.6 g/dl (6.4-8.2)
[2018-02-28] MEDS: LOSARTAN POTASSIUM 50 MG TABLET (FP) PO SCH (09:28)
[2018-02-28] MEDS: METOLAZONE 2.5 MG TABLET (FP) PO SCH (09:29)
[2018-02-28] MEDS: CHOLECALCIFEROL (VITAMIN D3) 400 UNIT TABLET (FP) PO SCH (09:29)
[2018-02-28] MEDS: ALLOPURINOL 100 MG TABLET (FP) PO SCH (09:29)
[2018-02-28] MEDS: DIGOXIN 0.125 MG TABLET (FP) PO SCH (09:29)
[2018-02-28] MEDS: POTASSIUM CHLORIDE TABS 20 MEQ TABLET.ER (FP) PO SCH (09:29)
[2018-02-28] MEDS: MAGNESIUM OXIDE 400 MG TABLET (FP) PO SCH (09:29)
[2018-02-28] MEDS: SILVER SULFADIAZINE 1% TOP CREAM 50 GM JAR TP SCH (09:29)
[2018-02-28] MEDS: ASPIRIN 81 MG CHEWABLE TABLETS PO SCH (09:29)
[2018-02-28] MEDS: HEPARIN - 25,000 UNIT in SODIUM CHLORIDE 495 ML IV SCH ×2 (09:29→16:48)
--- NOTE | 2018-02-28 11:44 | PN ---
Progress Note, Physician Chief Complaint: Cardioloy FU Less edema. Sitting in chair. History of Present Illness: 87-year-old female, mentally intact, history of hypertension, hyperlipidemia, chronic atrial fibrillation (not on anticoagulation because of GI bleed in her remote past, permanent pacemaker, chronic lymphedema, now admitted with generalized weakness and shortness of breath. - Current Medication List Current Medications: Active Medications Allopurinol (Zyloprim -) 100 mg PO DAILY [facility] Last Admin: 02/28/18 09:29 Dose: 100 mg Aspirin (Asa -) 81 mg PO DAILY [facility] Last Admin: 02/28/18 09:29 Dose: 81 mg Atorvastatin Calcium (Lipitor -) 20 mg PO HS [facility] Last Admin: 02/27/18 22:38 Dose: 20 mg Cholecalciferol (Vitamin D3 -) 400 unit PO DAILY [facility] Last Admin: 02/28/18 09:29 Dose: 400 unit Digoxin (Lanoxin -) 0.125 mg PO DAILY [facility] Last Admin: 02/28/18 09:29 Dose: 0.125 mg Diltiazem HCl (Cardizem Cd -) 180 mg PO DAILY [facility] Last Admin: 02/28/18 09:28 Dose: 180 mg Furosemide (Lasix Injection -) 40 mg IVPUSH BID@0600,1400 [facility] Last Admin: 02/28/18 05:05 Dose: 40 mg Heparin Sodium (Porcine) (Heparin -) 1,000 unit IVPUSH PRN PRN PRN Reason: Heparin Cefazolin Sodium 1 gm/ (Dextrose) 50 mls @ 100 mls/hr IVPB Q8H-IV [facility] Last Admin: 02/28/18 09:28 Dose: 100 mls/hr Heparin Sodium (Porcine) 25, (000 unit/ Sodium Chloride) 500 mls @ 20 mls/hr IV TITR NOEMÍ; Protocol Last Admin: 02/28/18 09:29 Dose: 1,000 unit/hr, 20 mls/hr Losartan Potassium (Cozaar -) 100 mg PO DAILY [facility] Last Admin: 02/28/18 09:28 Dose: 100 mg Magnesium Oxide (Mag-Ox -) 400 mg PO DAILY [facility] Last Admin: 02/28/18 09:29 Dose: 400 mg Metolazone (Zaroxolyn -) 2.5 mg PO 0930 [facility] Last Admin: 02/28/18 09:29 Dose: 2.5 mg Metoprolol Succinate (Toprol Xl -) 100 mg PO BID [facility] Last Admin: 02/28/18 09:28 Dose: 100 mg Silver Sulfadiazine (Silvadene -) 1 applic TP DAILY [facility] Last Admin: 02/28/18 09:29 Dose: 1 applic Tetrahydrozoline HCl (Visine -) 1 drop OU BID PRN PRN Reason: DRY EYES - Objective Vital Signs: Vital Signs Temperature 98.6 F 02/28/18 06:00 Pulse Rate 66 02/28/18 09:29 Respiratory Rate 20 02/28/18 06:00 Blood Pressure 138/86 02/28/18 06:00 O2 Sat by Pulse Oximetry (%) 98 02/27/18 21:00 Constitutional: Yes: Well Nourished, No Distress Eyes: Yes: Conjunctiva Clear, EOM Intact HENT: Yes: Atraumatic, Normocephalic Neck: Yes: Supple, Trachea Midline Cardiovascular: Yes: Pulse Irregular, S1, S2. No: JVD Respiratory: Yes: Regular, CTA Bilaterally Gastrointestinal: Yes: Normal Bowel Sounds Edema: Yes Edema: LLE: 1+, RLE: 1+ Labs: CBC, BMP 02/28/18 07:50 02/28/18 07:50 INR, PTT INR 1.22 (0.83-1.09) H 02/27/18 06:30 Problem List - Problems (1) Acquired lymphedema of leg Code(s): I89.0 - LYMPHEDEMA, NOT ELSEWHERE CLASSIFIED (2) Atrial fibrillation Code(s): I48.91 - UNSPECIFIED ATRIAL FIBRILLATION Qualifiers: Atrial fibrillation type: paroxysmal Qualified Code(s): I48.0 - Paroxysmal atrial fibrillation Assessment/Plan The patient is an 87-year-old female, mentally intact, history of hypertension, hyperlipidemia, chronic atrial fibrillation (not on anticoagulation because of GI bleed in her remote past, permanent pacemaker, chronic lymphedema, now admitted with generalized weakness and shortness of breath. Chronic Afib with elevated CHADS-Vasc score. Lymphedema and cellulitis. Responding to diuretic. I discussed the recommendation to consider oral anticoagulation and we discussed risk of bleeding. Suggest stopping Heparin and start Eliquis 5mg bid. Afib is rate controlled. Edema is improved.
--- NOTE | 2018-02-28 17:49 | PN ---
Progress Note, Physician History of Present Illness: OOB in chair No c/o leg pain No fever/ chills WBC 8.2 - Current Medication List Current Medications: Active Medications Allopurinol (Zyloprim -) 100 mg PO DAILY [facility] Last Admin: 02/28/18 09:29 Dose: 100 mg Aspirin (Asa -) 81 mg PO DAILY [facility] Last Admin: 02/28/18 09:29 Dose: 81 mg Atorvastatin Calcium (Lipitor -) 20 mg PO HS [facility] Last Admin: 02/27/18 22:38 Dose: 20 mg Cholecalciferol (Vitamin D3 -) 400 unit PO DAILY [facility] Last Admin: 02/28/18 09:29 Dose: 400 unit Digoxin (Lanoxin -) 0.125 mg PO DAILY [facility] Last Admin: 02/28/18 09:29 Dose: 0.125 mg Diltiazem HCl (Cardizem Cd -) 180 mg PO DAILY [facility] Last Admin: 02/28/18 09:28 Dose: 180 mg Furosemide (Lasix Injection -) 40 mg IVPUSH BID@0600,1400 [facility] Last Admin: 02/28/18 13:45 Dose: 40 mg Heparin Sodium (Porcine) (Heparin -) 1,000 unit IVPUSH PRN PRN PRN Reason: Heparin Cefazolin Sodium 1 gm/ (Dextrose) 50 mls @ 100 mls/hr IVPB Q8H-IV [facility] Last Admin: 02/28/18 17:13 Dose: 100 mls/hr Heparin Sodium (Porcine) 25, (000 unit/ Sodium Chloride) 500 mls @ 20 mls/hr IV TITR [facility]; Protocol Last Admin: 02/28/18 16:48 Dose: 1,000 unit/hr, 20 mls/hr Losartan Potassium (Cozaar -) 100 mg PO DAILY [facility] Last Admin: 02/28/18 09:28 Dose: 100 mg Magnesium Oxide (Mag-Ox -) 400 mg PO DAILY [facility] Last Admin: 02/28/18 09:29 Dose: 400 mg Metolazone (Zaroxolyn -) 2.5 mg PO 30 [facility] Last Admin: 02/28/18 09:29 Dose: 2.5 mg Metoprolol Succinate (Toprol Xl -) 100 mg PO BID [facility] Last Admin: 02/28/18 09:28 Dose: 100 mg Silver Sulfadiazine (Silvadene -) 1 applic TP DAILY [facility] Last Admin: 02/28/18 09:29 Dose: 1 applic Tetrahydrozoline HCl (Visine -) 1 drop OU BID PRN PRN Reason: DRY EYES - Objective Vital Signs: Vital Signs Temperature 97.7 F 02/28/18 14:16 Pulse Rate 68 02/28/18 14:16 Respiratory Rate 20 02/28/18 06:00 Blood Pressure 156/75 02/28/18 14:16 O2 Sat by Pulse Oximetry (%) 97 02/28/18 09:00 Constitutional: Yes: No Distress, Obese Eyes: Yes: Conjunctiva Clear, Other (+ ectropion o.u.) HENT: Yes: Normocephalic Cardiovascular: Yes: Regular Rate and Rhythm, S1, S2 Respiratory: Yes: CTA Bilaterally Gastrointestinal: Yes: Normal Bowel Sounds, Soft, Abdomen, Obese Extremities: Yes: Other (Slightly decreased erythema LE bilaterally.) Edema: Yes Labs: CBC, BMP 02/28/18 07:50 02/28/18 07:50 INR, PTT INR 1.22 (0.83-1.09) H 02/27/18 06:30 Assessment/Plan Bilateral LE cellulitis Continue cefazolin
[2018-02-28] MEDS: ATORVASTATIN CA 20 MG TABLET (FP) PO SCH (22:07)
[2018-03-01] MEDS ORDERED: ceFAZolin SODIUM 1 GM VIAL ONE ×3 (01:38→17:32)
[2018-03-01] MEDS ORDERED: DEXTROSE 5%-WATER - 50 ML IVPB ONE ×3 (01:38→17:32)
[2018-03-01] MEDS: CEFAZOLIN 1 GM in DEXTROSE 5%-WATER - 50 ML IVPB SCH ×3 (02:06→17:35)
[2018-03-01] MEDS: FUROSEMIDE 40 MG/4 ML INJECTABLE VIAL IVPUSH SCH ×2 (05:38→14:11)
[2018-03-01 06:47] LABS: HEMATOCRIT 34.1 % (32.4-45.2); HEMOGLOBIN 11.1 GM/dL (10.7-15.3); MCH 28.1 pg (25.7-33.7); MCHC 32.5 g/dl (32.0-36.0); MEAN CELL VOLUME 86.7 fl (80-96); MEAN PLT VOLUME 8.8 fl (7.5-11.1); PLATELET COUNT 211 K/MM3 (134-434); RBC 3.94 M/mm3 (3.60-5.2); RDW 20.2 % (11.6-15.6); WHITE BLOOD COUNT 9.2 K/mm3 (4.0-10.0)
[2018-03-01] MEDS ORDERED: PT OWN MED DRAWER 7, Y5N ONE (09:28)
[2018-03-01] MEDS: DIGOXIN 0.125 MG TABLET (FP) PO SCH (09:34)
[2018-03-01] MEDS: MAGNESIUM OXIDE 400 MG TABLET (FP) PO SCH (09:34)
[2018-03-01] MEDS: LOSARTAN POTASSIUM 50 MG TABLET (FP) PO SCH (09:34)
[2018-03-01] MEDS: ALLOPURINOL 100 MG TABLET (FP) PO SCH (09:34)
[2018-03-01] MEDS: CHOLECALCIFEROL (VITAMIN D3) 400 UNIT TABLET (FP) PO SCH (09:34)
[2018-03-01] MEDS: ASPIRIN 81 MG CHEWABLE TABLETS PO SCH (09:35)
[2018-03-01] MEDS: METOLAZONE 2.5 MG TABLET (FP) PO SCH (09:35)
[2018-03-01] MEDS: SILVER SULFADIAZINE 1% TOP CREAM 50 GM JAR TP SCH (12:29)
--- NOTE | 2018-03-01 12:53 | PN ---
Physical Exam: SUBJECTIVE: Patient seen and examined at bedside today. She is sitting in chair in no acute distress. She is unsure if the swelling in her lower extremities is improving. States her weakness is improving. Denies lower extremity pain. Denies fevers, chills, chest pain, palpitations, nausea vomiting, diarrhea, or any bleeding. OBJECTIVE: Vital Signs Period Temp Pulse Resp BP Sys/Polk Pulse Ox Last 24 Hr 97.7 F-98.8 F 68-77 18-20 138-156/63-75 97-97 GENERAL: The patient is awake, alert, and fully oriented, in no acute distress. HEAD: Normal with no signs of trauma. EYES: PERRL, extraocular movements intact, sclera anicteric. ENT: Oropharynx clear without exudates, moist mucous membranes. NECK: Supple without lymphedema. LUNGS: Breath sounds equal, clear to auscultation bilaterally, no wheezes, no crackles. HEART: Irregular rate. +S1, S2 without murmur, rub or gallop. ABDOMEN: Soft, nontender, nondistended, normoactive bowel sounds, no guarding, no rebound, no hepatosplenomegaly. EXTREMITIES: 2+ radial pulses B/L, 1+ DP pulses B/L. NEUROLOGICAL: Cranial nerves II through XII grossly intact. Normal speech PSYCH: Appropriate mood and affect upon my encounter today. SKIN: B/L legs erythematous, edematous 2+ pitting and mildly tender. Cellulitis margins outlined on both legs. Erythema in B/L legs diminishing from outlined margins. Swelling dramatically improving with bandaging of B/L legs. Laboratory Results - last 24 hr 02/28/18 03/01/18 03/01/18 15:00 06:30 06:30 WBC 9.2 RBC 3.94 Hgb 11.1 Hct 34.1 MCV 86.7 MCH 28.1 MCHC 32.5 RDW 20.2 H Plt Count 211 MPV 8.8 PTT (Actin FS) 63.0 H 72.0 H Active Medications Generic Name Dose Route Start Last Admin Trade Name Freq PRN Reason Stop Dose Admin Allopurinol 100 mg 02/26/18 10:00 03/01/18 09:34 Zyloprim - PO 100 mg DAILY NOEMÍ Administration Aspirin 81 mg 02/26/18 10:03/01/18 09:35 Asa - PO 81 mg DAILY NOEMÍ Administration Atorvastatin Calcium 20 mg 02/26/18 02:30 02/28/18 22:07 Lipitor - PO 20 mg HS NOEMÍ Administration Cholecalciferol 400 unit 02/26/18 10:00 03/01/18 09:34 Vitamin D3 - PO 400 unit DAILY NOEMÍ Administration Digoxin 0.125 mg 02/26/18 10:00 03/01/18 09:34 Lanoxin - PO 0.125 mg DAILY NOEMÍ Administration Diltiazem HCl 180 mg 02/26/18 10:00 03/01/18 09:34 Cardizem Cd - PO 180 mg DAILY NOEMÍ Administration Furosemide 40 mg 02/27/18 06:00 03/01/18 05:38 Lasix Injection - IVPUSH 40 mg BID@0600,1400 NOEMÍ Administration Heparin Sodium (Porcine) 1,000 unit 02/26/18 17:29 Heparin - IVPUSH PRN PRN Heparin Cefazolin Sodium 1 gm/ 50 mls @ 100 mls/hr 02/26/18 02:00 03/01/18 09:35 Dextrose IVPB 100 mls/hr Q8H-IV NOEMÍ Administration Heparin Sodium (Porcine) 25, 500 mls @ 20 mls/hr 02/26/18 17:30 02/28/18 16: 48 000 unit/ Sodium Chloride IV 1,000 unit/hr TITR NOEMÍ 20 mls/hr Administration Protocol 1,000 UNIT/HR Losartan Potassium 100 mg 02/26/18 12:47 03/01/18 09:34 Cozaar - PO 100 mg DAILY NOEMÍ Administration Magnesium Oxide 400 mg 02/26/18 10:00 03/01/18 09:34 Mag-Ox - PO 400 mg DAILY NOEMÍ Administration Metolazone 2.5 mg 02/26/18 09:30 03/01/18 09:35 Zaroxolyn - PO 2.5 mg 0930 NOEMÍ Administration Metoprolol Succinate 100 mg 02/26/18 10:00 03/01/18 09:34 Toprol Xl - PO 100 mg BID NOEMÍ Administration Silver Sulfadiazine 1 applic 02/27/18 12:00 03/01/18 12:29 Silvadene - TP 1 applic DAILY NOEMÍ Administration Tetrahydrozoline HCl 1 drop 02/26/18 05:04 Visine - OU BID PRN DRY EYES ASSESSMENT/PLAN: Patient is an 87 y/o female with medical history of HTN, HLD, Afib not on anticoagulation, presents with weakness worse on the left for the past three days and B/L lower extremity erythema and edema with underlying chronic lymphedema. Admitted for cellulitis of B/L lower extremities and weakness. Cellulitis B/L lower extremities -Patient started on Ancef 1gm IV Q8H -ID consult (Dr. Magaña) appreciated: Will continue Ancef 1gm IV Q8H -Lower extremity doppler shows no evidence of DVT B/L legs -Silver sulfadiazine cream B/L lower extremities -Legs wrapped in DES bandage B/L for lower extremity edema. Edema and erythema improving B/L lower extremities. -Podiatry consult for onychomycosis and overgrown toe nails. Increasing Alkaline Phosphatemia -Alk phos. 200, increased from 184 on prior study -F/U RUQ ultrasound Weakness -Unclear etiology. May be secondary to infectious cause (cellulitis) -TSH 1.47 T3 2.6, Total T3 92.0, Free T4 1.76 -UA showed 1+ protein Afib -Continue home medication: Digoxin 0.125mg PO QD -Continue home medication: Metoprolol Succinate 100mg PO BID -Cardiology consult (Dr. Gramajo) appreciated: Will d/c Heparin drip and begin Elequis 5mg PO BID for anticoagulation. PT 14.5, PTT 34.0, INR 1.28. Rectal exam performed before heparin initiation- negative for occult blood. -Cardiac ECHO shows LVEF grossly normal, moderate to severe tricuspid and mitral regurgitation, left atrial and right atrial mild dilation, elevated right ventricular systolic pressure at 40-50mmHg. Hypokalemia -Resolved. Potassium 3.9 today. -As per Cardiology consult, will maintain K+ around 4.0 HTN -Continue home medication: Losartan 100mg PO QD -Continue home medication: Diltiazem 180mg PO QD -Metalazone 2.5mg PO HLD -Atorvastatin 20mg PO Infraorbital erythema -Visine eye drops Prophylaxis -on Elequis 5mg PO BID FEN -No IV fluids -Hypokalemia repleted. Will monitor CMP -Sodium restricted diet Disposition: Continue care on medical-surgical floor Visit type - Emergency Visit Emergency Visit: No - New Patient This patient is new to me today: No - Critical Care Critical Care patient: No - Discharge Referral Referred to [facility] Med P.C.: No
--- NOTE | 2018-03-01 13:09 | CONSULT ---
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, Other (h/o bifrontal craniotomies) Cardio/Vascular: Yes: AFIB, HTN, Hyperlipdemia, Other (non palpable pulses b/l feet) Gastrointestinal: Yes: GI Bleed Rheumatology: Yes: Other (b/l knee pain) Dermatology: Yes: Other ( Other (tender hypertrophic nails x 10 with subungual debris, +inflammed nails beds, +distal seperation of nail from bed, +xerosis b/ l feet)) - Past Surgical History Past Surgical History: Yes: Craniotomy - Alcohol/Substance Use Hx Alcohol Use: No - Smoking History Smoking history: Former smoker Have you smoked in the past 12 months: No Home Medications - Allergies Allergies/Adverse Reactions: Allergies Allergy/AdvReac Type Severity Reaction Status Date / Time No Known Allergies Allergy Verified 02/25/18 17:22 - Home Medications Home Medications: Ambulatory Orders Allopurinol [Zyloprim -] 100 mg PO DAILY 02/25/18 Aspirin [ASA -] 81 mg PO DAILY 02/25/18 Atorvastatin Calcium [Lipitor] 20 mg PO HS 02/25/18 Cholecalciferol (Vitamin D3) [Vitamin D3 -] 400 unit PO DAILY 02/25/18 Digoxin 125 mcg PO DAILY 02/25/18 Diltiazem HCl [Cartia Xt] 180 mg PO DAILY 02/25/18 Losartan Potassium 100 mg PO DAILY 02/25/18 Magnesium Oxide 400 mg PO DAILY 02/25/18 Metoprolol Succinate [Toprol Xl] 100 mg PO BID 02/25/18 Torsemide 20 mg PO DAILY 02/25/18 Physical Exam Vital Signs: Vital Signs Temperature 98.5 F 03/01/18 09:37 Pulse Rate 68 03/01/18 09:37 Respiratory Rate 18 03/01/18 09:37 Blood Pressure 140/65 03/01/18 09:37 O2 Sat by Pulse Oximetry (%) 97 03/01/18 09:00 Labs: CBC, BMP 03/01/18 06:30 02/28/18 07:50 Assessment/Plan onychomycosis pvd xerosis Debride nails tomorrow. Recommend ammonium lactate BID to feet. Will follow.
[2018-03-01] MEDS: APIXABAN 5 MG TABLET PO SCH ×2 (15:05→22:15)
--- NOTE | 2018-03-01 16:03 | PN ---
Teaching Attending Note Name of Resident: Leonardo Bocanegra ATTENDING PHYSICIAN STATEMENT I saw and evaluated the patient. I reviewed the resident's note and discussed the case with the resident. I agree with the resident's findings and plan as documented. SUBJECTIVE: Patient is comfortable with no acute distress. the legs improved BL, swelling is down. OBJECTIVE: Vital Signs Temperature 98.3 F 03/01/18 14:08 Pulse Rate 66 03/01/18 14:08 Respiratory Rate 18 03/01/18 09:37 Blood Pressure 132/52 03/01/18 14:08 O2 Sat by Pulse Oximetry (%) 97 03/01/18 09:00 CBCD WBC 9.2 K/mm3 (4.0-10.0) 03/01/18 06:30 RBC 3.94 M/mm3 (3.60-5.2) 03/01/18 06:30 Hgb 11.1 GM/dL (10.7-15.3) 03/01/18 06:30 Hct 34.1 % (32.4-45.2) 03/01/18 06:30 MCV 86.7 fl (80-96) 03/01/18 06:30 MCHC 32.5 g/dl (32.0-36.0) 03/01/18 06:30 RDW 20.2 % (11.6-15.6) H 03/01/18 06:30 Plt Count 211 K/MM3 (134-434) 03/01/18 06:30 MPV 8.8 fl (7.5-11.1) 03/01/18 06:30 CMP Sodium 142 mmol/L (136-145) 02/28/18 07:50 Potassium 3.9 mmol/L (3.5-5.1) 02/28/18 07:50 Chloride 101 mmol/L (98-107) 02/28/18 07:50 Carbon Dioxide 31 mmol/L (21-32) 02/28/18 07:50 Anion Gap 10 MMOL/L (8-16) 02/28/18 07:50 BUN 22 mg/dL (7-18) H 02/28/18 07:50 Creatinine 1.0 mg/dL (0.55-1.02) 02/28/18 07:50 Creat Clearance w eGFR 52.33 (>60) 02/28/18 07:50 Random Glucose 97 mg/dL (74-106) 02/28/18 07:50 Calcium 9.1 mg/dL (8.5-10.1) 02/28/18 07:50 Total Bilirubin 1.0 mg/dL (0.2-1.0) 02/28/18 07:50 AST 27 U/L (15-37) 02/28/18 07:50 ALT 18 U/L (12-78) 02/28/18 07:50 Alkaline Phosphatase 200 U/L (45-117) H D 02/28/18 07:50 Total Protein 6.6 g/dl (6.4-8.2) 02/28/18 07:50 Albumin 3.1 g/dl (3.4-5.0) L 02/28/18 07:50 CARDIAC ENZYMES Creatine Kinase 570 IU/L (26-192) H 02/25/18 18:30 Troponin I 0.05 ng/ml (0.00-0.05) 02/25/18 18:30 Current Medications Generic Name Dose Route Start Last Admin Trade Name Freq PRN Reason Stop Dose Admin Allopurinol 100 mg 02/26/18 10:00 03/01/18 09:34 Zyloprim - PO 100 mg DAILY NOEMÍ Administration Apixaban 5 mg 03/01/18 14:00 03/01/18 15:05 Eliquis - PO 5 mg BID NOEMÍ Administration Aspirin 81 mg 02/26/18 10:00 03/01/18 09:35 Asa - PO 81 mg DAILY NOEMÍ Administration Atorvastatin Calcium 20 mg 02/26/18 02:30 02/28/18 22:07 Lipitor - PO 20 mg HS NOEMÍ Administration Cholecalciferol 400 unit 02/26/18 10:00 03/01/18 09:34 Vitamin D3 - PO 400 unit DAILY NOEMÍ Administration Digoxin 0.125 mg 02/26/18 10:00 03/01/18 09:34 Lanoxin - PO 0.125 mg DAILY NOEMÍ Administration Diltiazem HCl 180 mg 02/26/18 10:00 03/01/18 09:34 Cardizem Cd - PO 180 mg DAILY NOEMÍ Administration Furosemide 40 mg 02/27/18 06:00 03/01/18 14:11 Lasix Injection - IVPUSH 40 mg BID@0600,1400 NOEMÍ Administration Cefazolin Sodium 1 gm/ 50 mls @ 100 mls/hr 02/26/18 02:00 03/01/18 09:35 Dextrose IVPB 100 mls/hr Q8H-IV NOEMÍ Administration Losartan Potassium 100 mg 02/26/18 12:47 03/01/18 09:34 Cozaar - PO 100 mg DAILY NOEMÍ Administration Magnesium Oxide 400 mg 02/26/18 10:00 03/01/18 09:34 Mag-Ox - PO 400 mg DAILY NOEMÍ Administration Metolazone 2.5 mg 02/26/18 09:30 03/01/18 09:35 Zaroxolyn - PO 2.5 mg 0930 NOEMÍ Administration Metoprolol Succinate 100 mg 02/26/18 10:00 03/01/18 09:34 Toprol Xl - PO 100 mg BID NOEMÍ Administration Silver Sulfadiazine 1 applic 02/27/18 12:00 03/01/18 12:29 Silvadene - TP 1 applic DAILY NOEMÍ Administration Tetrahydrozoline HCl 1 drop 02/26/18 05:04 Visine - OU BID PRN DRY EYES Home Medications Medication Instructions Recorded Allopurinol [Zyloprim -] 100 mg PO DAILY 02/25/18 Aspirin [ASA -] 81 mg PO DAILY 02/25/18 Atorvastatin Calcium [Lipitor] 20 mg PO HS 02/25/18 Cholecalciferol (Vitamin D3) 400 unit PO DAILY 02/25/18 [Vitamin D3 -] Digoxin 125 mcg PO DAILY 02/25/18 Diltiazem HCl [Cartia Xt] 180 mg PO DAILY 02/25/18 Losartan Potassium 100 mg PO DAILY 02/25/18 Magnesium Oxide 400 mg PO DAILY 02/25/18 Metoprolol Succinate [Toprol Xl] 100 mg PO BID 02/25/18 Torsemide 20 mg PO DAILY 02/25/18 PE: per resident's note LES bl decreased swelling from 3plus to 1plus, onychomycosis bl with long toe nails ASSESSMENT AND PLAN: Patient is a 87 y/o female with PMHx of HTN, HLD, afib.(not on AC bc of GI bleed), permanant pacemaker and chronic Lymededma presents to the ED with a three day history of worsening weakness of B/L LEs presented with redness and swelling of LEs. # Acute BL lower extremity Cellulitis improving : on IV antibiotics Cefazolin continue, will add Silvadene and Scott bandages bl #LE swelling with edema on Lasix 40mg iv bid; from 3 plus to 1 plus now with Onychomycosis bl with long toe nails, will get Podiatry involved. #Elevated BNP: 2000, on IV lasix 40mg bid continue # Afib : Rate controlled off heparin drip ,continue to monitor h/h. will start the patient on Noac Eliquis and stop heparin. bill monitor H/H # Anemia:Etiology unclear. will get iron studies, further w/u as an outpatient. 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 DVT prophylaxis: Eliquis now Advance directives - Full code
[2018-03-01] MEDS: ATORVASTATIN CA 20 MG TABLET (FP) PO SCH (22:15)
[2018-03-02] MEDS ORDERED: ceFAZolin SODIUM 1 GM VIAL ONE ×3 (01:41→16:41)
[2018-03-02] MEDS ORDERED: DEXTROSE 5%-WATER - 50 ML IVPB ONE ×3 (01:41→16:41)
[2018-03-02] MEDS: CEFAZOLIN 1 GM in DEXTROSE 5%-WATER - 50 ML IVPB SCH ×3 (01:43→17:47)
[2018-03-02] MEDS: FUROSEMIDE 40 MG/4 ML INJECTABLE VIAL IVPUSH SCH ×2 (06:25→14:20)
[2018-03-02 08:18] LABS: BASO % 0.6 % (0-2.0); EOS % 4.6 % (0-4.5); HEMATOCRIT 35.8 % (32.4-45.2); HEMOGLOBIN 11.6 GM/dL (10.7-15.3); LYMPH % 20.4 % (8-40); MCH 27.8 pg (25.7-33.7); MCHC 32.4 g/dl (32.0-36.0); MEAN CELL VOLUME 85.9 fl (80-96); MEAN PLT VOLUME 8.9 fl (7.5-11.1); MONO % 9.2 % (3.8-10.2); NEUT % 65.2 % (42.8-82.8); PLATELET COUNT 247 K/MM3 (134-434); RBC 4.16 M/mm3 (3.60-5.2); RDW 19.7 % (11.6-15.6); WHITE BLOOD COUNT 9.5 K/mm3 (4.0-10.0)
[2018-03-02 08:38] LABS: CHLORIDE 95 mmol/L (98-107); POTASSIUM 3.9 mmol/L (3.5-5.1); SODIUM 139 mmol/L (136-145)
[2018-03-02 08:46] LABS: ALBUMIN 3.3 g/dl (3.4-5.0); ALK PHOS 205 U/L (45-117); ANION GAP 10 MMOL/L (8-16); BILIRUBIN,TOTAL 1.1 mg/dL (0.2-1.0); BLOOD UREA NITROGEN 30 mg/dL (7-18); CALCIUM 9.7 mg/dL (8.5-10.1); CO2 34 mmol/L (21-32); CREATININE 1.3 mg/dL (0.55-1.02); GLUCOSE,RANDOM 107 mg/dL (74-106); SGOT/AST 25 U/L (15-37); SGPT/ALT 12 U/L (12-78)
[2018-03-02] MEDS ORDERED: PT OWN MED DRAWER 7, Y5N ONE ×2 (10:30→20:49)
[2018-03-02] MEDS: ASPIRIN 81 MG CHEWABLE TABLETS PO SCH (10:32)
[2018-03-02] MEDS: DIGOXIN 0.125 MG TABLET (FP) PO SCH (10:32)
[2018-03-02] MEDS: ALLOPURINOL 100 MG TABLET (FP) PO SCH (10:32)
[2018-03-02] MEDS: MAGNESIUM OXIDE 400 MG TABLET (FP) PO SCH (10:32)
[2018-03-02] MEDS: APIXABAN 5 MG TABLET PO SCH ×2 (10:33→21:37)
[2018-03-02] MEDS: CHOLECALCIFEROL (VITAMIN D3) 400 UNIT TABLET (FP) PO SCH (10:33)
[2018-03-02] MEDS: METOLAZONE 2.5 MG TABLET (FP) PO SCH (10:33)
[2018-03-02] MEDS: LOSARTAN POTASSIUM 50 MG TABLET (FP) PO SCH (10:33)
[2018-03-02] MEDS: SILVER SULFADIAZINE 1% TOP CREAM 50 GM JAR TP SCH (10:43)
--- NOTE | 2018-03-02 13:44 | PN ---
Progress Note (short form) - Note Progress Note: Patient is feeling better. Vital Signs Temperature 98.3 F 03/02/18 08:00 Pulse Rate 64 03/02/18 10:32 Respiratory Rate 20 03/02/18 08:00 Blood Pressure 130/62 03/02/18 08:00 O2 Sat by Pulse Oximetry (%) 96 03/02/18 08:00 GENERAL: The patient is awake, alert, and fully oriented, in no acute distress. HEAD: Normal with no signs of trauma. EYES: PERRL, extraocular movements intact, sclera anicteric. ENT: Oropharynx clear without exudates, moist mucous membranes. NECK: Supple without lymphedema. LUNGS: decreased BS BL otherwise CTA BLar to auscultation bilaterally, no wheezes, no crackles. HEART: Irregular rate. +S1, S2 without murmur, rub or gallop. ABDOMEN: Soft, nontender, nondistended, normoactive bowel sounds, no guarding, no rebound, no hepatosplenomegaly. NEUROLOGICAL: Cranial nerves II through XII grossly intact. Normal speech PSYCH: Appropriate mood and affect upon my encounter today. LEs: B/L legs erythematous, edematous 1+ pitting and tender.with Cellulitis improving CBCD WBC 9.5 K/mm3 (4.0-10.0) 03/02/18 07:25 RBC 4.16 M/mm3 (3.60-5.2) 03/02/18 07:25 Hgb 11.6 GM/dL (10.7-15.3) 03/02/18 07:25 Hct 35.8 % (32.4-45.2) 03/02/18 07:25 MCV 85.9 fl (80-96) 03/02/18 07:25 MCHC 32.4 g/dl (32.0-36.0) 03/02/18 07:25 RDW 19.7 % (11.6-15.6) H 03/02/18 07:25 Plt Count 247 K/MM3 (134-434) 03/02/18 07:25 MPV 8.9 fl (7.5-11.1) 03/02/18 07:25 CMP Sodium 139 mmol/L (136-145) 03/02/18 07:25 Potassium 3.9 mmol/L (3.5-5.1) 03/02/18 07:25 Chloride 95 mmol/L (98-107) L 03/02/18 07:25 Carbon Dioxide 34 mmol/L (21-32) H 03/02/18 07:25 Anion Gap 10 MMOL/L (8-16) 03/02/18 07:25 BUN 30 mg/dL (7-18) H 03/02/18 07:25 Creatinine 1.3 mg/dL (0.55-1.02) H 03/02/18 07:25 Creat Clearance w eGFR 38.66 (>60) 03/02/18 07:25 Random Glucose 107 mg/dL (74-106) H 03/02/18 07:25 Calcium 9.7 mg/dL (8.5-10.1) 03/02/18 07:25 Total Bilirubin 1.1 mg/dL (0.2-1.0) H 03/02/18 07:25 AST 25 U/L (15-37) 03/02/18 07:25 ALT 12 U/L (12-78) 03/02/18 07:25 Alkaline Phosphatase 205 U/L (45-117) H 03/02/18 07:25 Total Protein 7.0 g/dl (6.4-8.2) 03/02/18 07:25 Albumin 3.3 g/dl (3.4-5.0) L 03/02/18 07:25 CARDIAC ENZYMES Creatine Kinase 570 IU/L (26-192) H 02/25/18 18:30 Troponin I 0.05 ng/ml (0.00-0.05) 02/25/18 18:30 Current Medications Generic Name Dose Route Start Last Admin Trade Name Brandonq PRN Reason Stop Dose Admin Allopurinol 100 mg 02/26/18 10:00 03/02/18 10:32 Zyloprim - PO 100 mg DAILY NOEMÍ Administration Apixaban 5 mg 03/01/18 14:00 03/02/18 10:33 Eliquis - PO 5 mg BID NOEMÍ Administration Aspirin 81 mg 02/26/18 10:00 03/02/18 10:32 Asa - PO 81 mg DAILY NOEMÍ Administration Atorvastatin Calcium 20 mg 02/26/18 02:30 03/01/18 22:15 Lipitor - PO 20 mg HS NOEMÍ Administration Cholecalciferol 400 unit 02/26/18 10:00 03/02/18 10:33 Vitamin D3 - PO 400 unit DAILY NOEMÍ Administration Digoxin 0.125 mg 02/26/18 10:00 03/02/18 10:32 Lanoxin - PO 0.125 mg DAILY NOEMÍ Administration Diltiazem HCl 180 mg 02/26/18 10:00 03/02/18 10:33 Cardizem Cd - PO 180 mg DAILY NOEMÍ Administration Furosemide 40 mg 02/27/18 06:00 03/02/18 06:25 Lasix Injection - IVPUSH 40 mg BID@0600,1400 NOEMÍ Administration Cefazolin Sodium 1 gm/ 50 mls @ 100 mls/hr 02/26/18 02:00 03/02/18 10:32 Dextrose IVPB 100 mls/hr Q8H-IV NOEMÍ Administration Losartan Potassium 100 mg 02/26/18 12:47 03/02/18 10:33 Cozaar - PO 100 mg DAILY NOEMÍ Administration Magnesium Oxide 400 mg 02/26/18 10:00 03/02/18 10:32 Mag-Ox - PO 400 mg DAILY NOEMÍ Administration Metolazone 2.5 mg 02/26/18 09:30 03/02/18 10:33 Zaroxolyn - PO 2.5 mg 0930 NOEMÍ Administration Metoprolol Succinate 100 mg 02/26/18 10:00 03/02/18 10:33 Toprol Xl - PO 100 mg BID NOEMÍ Administration Silver Sulfadiazine 1 applic 02/27/18 12:00 03/02/18 10:43 Silvadene - TP 1 applic DAILY NOEMÍ Administration Tetrahydrozoline HCl 1 drop 02/26/18 05:04 Visine - OU BID PRN DRY EYES Home Medications Medication Instructions Recorded Allopurinol [Zyloprim -] 100 mg PO DAILY 02/25/18 Aspirin [ASA -] 81 mg PO DAILY 02/25/18 Atorvastatin Calcium [Lipitor] 20 mg PO HS 02/25/18 Cholecalciferol (Vitamin D3) 400 unit PO DAILY 02/25/18 [Vitamin D3 -] Digoxin 125 mcg PO DAILY 02/25/18 Diltiazem HCl [Cartia Xt] 180 mg PO DAILY 02/25/18 Losartan Potassium 100 mg PO DAILY 02/25/18 Magnesium Oxide 400 mg PO DAILY 02/25/18 Metoprolol Succinate [Toprol Xl] 100 mg PO BID 02/25/18 Torsemide 20 mg PO DAILY 02/25/18 ASSESSMENT AND PLAN: Patient is a 87 y/o female with PMHx of HTN, HLD, afib.(not on AC bc of GI bleed), permanant pacemaker and chronic Lymededma presents to the ED with a three day history of worsening weakness of B/L LEs presented with redness and swelling of LEs. # Acute BL lower extremity Cellulitis improving : s/p IV antibiotics Cefazolin , will switch keflex in am 500 bid to finish another 5 days, continue Silvadene and Scott bandages bl. #LE swelling with edema s/p Lasix 40mg iv bid;switched to po Lasix 40mg daily , from 3 plus to 1 plus now with Onychomycosis bl with long toe nails, POdiatry appreciated. #Elevated BNP: 2000, s/p IV lasix 40mg bid , now continue with po LAsix 40mg daily # Afib : Rate controlled off heparin drip ,continue to monitor h/h. will start the patient on Noac Eliquis and stop heparin ad aspirin . bill monitor H/H Given prerenal azotemia , lowered lasix 40mg PO QD. # Anemia:Etiology unclear. will get iron studies, further w/u as an outpatient. 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 DVT prophylaxis: Eliquis now Advance directives - Full code discharge plan in am. possible rehab Visit type - Emergency Visit Emergency Visit: Yes ED Registration Date: 02/25/18 Care time: The patient presented to the Emergency Department on the above date and was hospitalized for further evaluation of their emergent condition. - New Patient This patient is new to me today: No - Critical Care Critical Care patient: No - Discharge Referral Referred to [facility] Med P.C.: No
--- NOTE | 2018-03-02 13:52 | PN ---
Progress Note (short form) - Note Progress Note: doing well out of bed in chair Vital Signs Period Temp Pulse Resp BP Sys/Polk Pulse Ox Last 24 Hr 98.0 F-98.3 F 53-80 20-20 122-134/52-70 96-96 cor-rrr lungs clear abd soft,nt ext +erythema- pink, much improved CBC, BMP 03/02/18 07:25 03/02/18 07:25 Microbiology 02/25/18 18:30 Blood - Peripheral Venous Blood Culture - Preliminary NO GROWTH OBTAINED AFTER 96 HOURS, INCUBATION TO CONTINUE FOR 1 DAYS. 02/25/18 18:30 Blood - Peripheral Venous Blood Culture - Preliminary NO GROWTH OBTAINED AFTER 96 HOURS, INCUBATION TO CONTINUE FOR 1 DAYS. 02/25/18 21:31 Urine - Urine Clean Catch Urine Culture - Final NO GROWTH OBTAINED a/p cellulitis resolving switch to po keflex in am 500 bid to finish another 5 days please call back if needed
--- NOTE | 2018-03-02 16:06 | PN ---
Progress Note (short form) - Note Progress Note: Patient seen for painful elongated thickened toe nail nails x 10. +tender dystrophic mycotic nails with subungual debris, +inflammed nail beds x 10, +subungual debris, +xerosis b/l feet onychomycosis pain xerosis Debride nails x 10. Ammonium lactate BID to feet exposed areas. Follow up with podiatry q8 weeeks.
--- NOTE | 2018-03-02 17:09 | PN ---
Progress Note, Physician Chief Complaint: Cardioloy FU Less edema. History of Present Illness: 87-year-old female, mentally intact, history of hypertension, hyperlipidemia, chronic atrial fibrillation (not on anticoagulation because of GI bleed in her remote past, permanent pacemaker, chronic lymphedema, now admitted with generalized weakness and shortness of breath. - Current Medication List Current Medications: Active Medications Allopurinol (Zyloprim -) 100 mg PO DAILY [facility] Last Admin: 03/02/18 10:32 Dose: 100 mg Apixaban (Eliquis -) 5 mg PO BID [facility] Last Admin: 03/02/18 10:33 Dose: 5 mg Aspirin (Asa -) 81 mg PO DAILY [facility] Last Admin: 03/02/18 10:32 Dose: 81 mg Atorvastatin Calcium (Lipitor -) 20 mg PO HS [facility] Last Admin: 03/01/18 22:15 Dose: 20 mg Cholecalciferol (Vitamin D3 -) 400 unit PO DAILY [facility] Last Admin: 03/02/18 10:33 Dose: 400 unit Digoxin (Lanoxin -) 0.125 mg PO DAILY [facility] Last Admin: 03/02/18 10:32 Dose: 0.125 mg Diltiazem HCl (Cardizem Cd -) 180 mg PO DAILY [facility] Last Admin: 03/02/18 10:33 Dose: 180 mg Furosemide (Lasix Injection -) 40 mg IVPUSH BID@0600,1400 [facility] Last Admin: 03/02/18 14:20 Dose: 40 mg Cefazolin Sodium 1 gm/ (Dextrose) 50 mls @ 100 mls/hr IVPB Q8H-IV [facility] Last Admin: 03/02/18 10:32 Dose: 100 mls/hr Lactobacillus Acidophilus (Bacid -) 1 tab PO DAILY [facility] Losartan Potassium (Cozaar -) 100 mg PO DAILY [facility] Last Admin: 03/02/18 10:33 Dose: 100 mg Magnesium Oxide (Mag-Ox -) 400 mg PO DAILY [facility] Last Admin: 03/02/18 10:32 Dose: 400 mg Metolazone (Zaroxolyn -) 2.5 mg PO 0930 [facility] Last Admin: 03/02/18 10:33 Dose: 2.5 mg Metoprolol Succinate (Toprol Xl -) 100 mg PO BID [facility] Last Admin: 03/02/18 10:33 Dose: 100 mg Silver Sulfadiazine (Silvadene -) 1 applic TP DAILY [facility] Last Admin: 03/02/18 10:43 Dose: 1 applic Tetrahydrozoline HCl (Visine -) 1 drop OU BID PRN PRN Reason: DRY EYES - Objective Vital Signs: Vital Signs Temperature 98.7 F 03/02/18 14:55 Pulse Rate 52 L 03/02/18 14:55 Respiratory Rate 20 03/02/18 14:55 Blood Pressure 109/44 03/02/18 14:55 O2 Sat by Pulse Oximetry (%) 96 03/02/18 08:00 Constitutional: Yes: Well Nourished, No Distress Eyes: Yes: Conjunctiva Clear, EOM Intact HENT: Yes: Atraumatic, Normocephalic Neck: Yes: Supple, Trachea Midline Cardiovascular: Yes: Regular Rate and Rhythm, S1, S2. No: JVD Respiratory: Yes: Regular, CTA Bilaterally Gastrointestinal: Yes: Normal Bowel Sounds Edema: LLE: Trace, RLE: Trace Labs: CBC, BMP 03/02/18 07:25 03/02/18 07:25 INR, PTT INR 1.22 (0.83-1.09) H 02/27/18 06:30 Problem List - Problems (1) Acquired lymphedema of leg Code(s): I89.0 - LYMPHEDEMA, NOT ELSEWHERE CLASSIFIED (2) Atrial fibrillation Code(s): I48.91 - UNSPECIFIED ATRIAL FIBRILLATION Qualifiers: Atrial fibrillation type: paroxysmal Qualified Code(s): I48.0 - Paroxysmal atrial fibrillation Assessment/Plan The patient is an 87-year-old female, mentally intact, history of hypertension, hyperlipidemia, chronic atrial fibrillation (not on anticoagulation because of GI bleed in her remote past, permanent pacemaker, chronic lymphedema, now admitted with generalized weakness and shortness of breath. Chronic Afib with elevated CHADS-Vasc score. Lymphedema and cellulitis. Responded to diuretic. Given prerenal azotemia would lower lasix 40mg PO QD. DC asa as she is on Eliquis Afib is rate controlled. Edema is improved. Will see her as needed.
[2018-03-02] MEDS: ATORVASTATIN CA 20 MG TABLET (FP) PO SCH (21:37)
[2018-03-03] MEDS ORDERED: DEXTROSE 5%-WATER - 50 ML IVPB ONE ×3 (01:12→17:06)
[2018-03-03] MEDS ORDERED: ceFAZolin SODIUM 1 GM VIAL ONE ×3 (01:12→17:06)
[2018-03-03] MEDS: CEFAZOLIN 1 GM in DEXTROSE 5%-WATER - 50 ML IVPB SCH ×3 (01:47→17:36)
[2018-03-03 07:33] LABS: BASO % 0.7 % (0-2.0); EOS % 4.3 % (0-4.5); HEMATOCRIT 32.8 % (32.4-45.2); HEMOGLOBIN 10.8 GM/dL (10.7-15.3); LYMPH % 23.4 % (8-40); MCH 28.2 pg (25.7-33.7); MCHC 32.9 g/dl (32.0-36.0); MEAN CELL VOLUME 85.8 fl (80-96); MEAN PLT VOLUME 8.7 fl (7.5-11.1); MONO % 10.9 % (3.8-10.2); NEUT % 60.7 % (42.8-82.8); PLATELET COUNT 220 K/MM3 (134-434); RBC 3.82 M/mm3 (3.60-5.2); RDW 19.6 % (11.6-15.6); WHITE BLOOD COUNT 9.1 K/mm3 (4.0-10.0)
[2018-03-03 07:49] LABS: CALCIUM 8.8 mg/dL (8.5-10.1); CHLORIDE 96 mmol/L (98-107); SODIUM 141 mmol/L (136-145)
[2018-03-03 07:54] LABS: ALBUMIN 2.8 g/dl (3.4-5.0); ALK PHOS 175 U/L (45-117); ANION GAP 12 MMOL/L (8-16); BILIRUBIN,TOTAL 0.8 mg/dL (0.2-1.0); BLOOD UREA NITROGEN 42 mg/dL (7-18); CO2 33 mmol/L (21-32); CREATININE 1.6 mg/dL (0.55-1.02); GLUCOSE,RANDOM 95 mg/dL (74-106); MAGNESIUM 2.2 mg/dL (1.8-2.4); SGOT/AST 28 U/L (15-37); SGPT/ALT 9 U/L (12-78); TOT PROT 6.2 g/dl (6.4-8.2)
[2018-03-03] MEDS ORDERED: PT OWN MED DRAWER 7, Y5N ONE ×2 (08:24→20:56)
[2018-03-03] MEDS: METOLAZONE 2.5 MG TABLET (FP) PO SCH (09:26)
[2018-03-03] MEDS: DIGOXIN 0.125 MG TABLET (FP) PO SCH (10:00)
[2018-03-03] MEDS: ALLOPURINOL 100 MG TABLET (FP) PO SCH (10:00)
[2018-03-03] MEDS: LOSARTAN POTASSIUM 50 MG TABLET (FP) PO SCH (10:00)
[2018-03-03] MEDS: LACTOBACILLUS ACIDOPHILUS 1 TABLET PO SCH (10:00)
[2018-03-03] MEDS: MAGNESIUM OXIDE 400 MG TABLET (FP) PO SCH (10:01)
[2018-03-03] MEDS: FUROSEMIDE 40 MG TABLET (FP) PO SCH (10:01)
[2018-03-03] MEDS: CHOLECALCIFEROL (VITAMIN D3) 400 UNIT TABLET (FP) PO SCH (10:01)
[2018-03-03] MEDS: APIXABAN 5 MG TABLET PO SCH ×2 (10:01→21:11)
--- NOTE | 2018-03-03 10:55 | CONSULT ---
- Consultation REQUESTING PROVIDER: CONSULT REQUEST: We have been asked to surgically evaluate this patient for ( specify). PCP:Lisa Billingsley HISTORY OF PRESENT ILLNESS: 87yo female with PMHX of hypertension, hyperlipidemia, a-fib, presents to the ED complaining of generalized weakness. The patient has been having worsening weakness and pain over b/l legs over the past few days and she has been having trouble getting out of bed. PMHx: Cardiac Disorders: Yes (afib) COPD: No GI Disorders: Yes (gi bleed 2* to coumadin) HTN: Yes Hypercholesterolemia: Yes PSHx: - Surgical History Abdominal Surgery: Yes Cholecystectomy: Ye Home Medications Medication Instructions Recorded Allopurinol [Zyloprim -] 100 mg PO DAILY 02/25/18 Aspirin [ASA -] 81 mg PO DAILY 02/25/18 Atorvastatin Calcium [Lipitor] 20 mg PO HS 02/25/18 Cholecalciferol (Vitamin D3) 400 unit PO DAILY 02/25/18 [Vitamin D3 -] Digoxin 125 mcg PO DAILY 02/25/18 Diltiazem HCl [Cartia Xt] 180 mg PO DAILY 02/25/18 Losartan Potassium 100 mg PO DAILY 02/25/18 Magnesium Oxide 400 mg PO DAILY 02/25/18 Metoprolol Succinate [Toprol Xl] 100 mg PO BID 02/25/18 Torsemide 20 mg PO DAILY 02/25/18 Allergies Allergy/AdvReac Type Severity Reaction Status Date / Time No Known Allergies Allergy Verified 02/25/18 17:22 REVIEW OF SYSTEMS: obtained from chart GENERAL/CONSTITUTIONAL: Positive for weakness. No fever or chills. HEAD, EYES, EARS, NOSE AND THROAT: No change in vision. No ear pain or discharge. No sore throat. CARDIOVASCULAR: No chest pain, palpitations, or lightheadedness. RESPIRATORY: No cough, wheezing, shortness of breath, or hemoptysis. GASTROINTESTINAL: No nausea, vomiting, diarrhea, constipation, or abdominal pain. GENITOURINARY: No dysuria, frequency, hematuria, or change in urination. MUSCULOSKELETAL: No joint or muscle swelling or pain. No neck or back pain. SKIN: Positive for redness and swelling in b/l LE. NEUROLOGIC: No headache, numbness, tingling, focal weakness, loss of consciousness, or change in strength/sensation. Is the patient limited Yoruba proficient: No PHYSICAL EXAM: Patient seen and examined at bedside with Dr Burgess GENERAL: Awake, alert, and fully oriented, in no acute distress. HEAD: Normal with no signs of trauma. EYES: sclera anicteric, conjunctiva clear. LUNGS:unlabored resp on RA, No audible wheezes, No accessory muscle use. HEART: Regular rate and rhythm. No murmurs LOWER EXTREMITIES: b/l mild LE edema with resolving cellulitis and chronic skin changes throughout grossly intact with no evidence of breakdown. 2+ pulses, warm , well-perfused. No calf tenderness. NEUROLOGICAL: Normal speech, gait not observed. PSYCH: Cooperative. Good eye contact. Appropriate mood and affect. SKIN: Warm, dry, normal turgor, Vital Signs Temperature 98.5 F 03/03/18 08:42 Pulse Rate 65 03/03/18 10:00 Respiratory Rate 20 03/03/18 08:42 Blood Pressure 126/93 03/03/18 08:42 O2 Sat by Pulse Oximetry (%) 94 L 03/02/18 21:00 Lab Results WBC 9.1 K/mm3 (4.0-10.0) 03/03/18 06:00 RBC 3.82 M/mm3 (3.60-5.2) 03/03/18 06:00 Hgb 10.8 GM/dL (10.7-15.3) 03/03/18 06:00 Hct 32.8 % (32.4-45.2) 03/03/18 06:00 MCV 85.8 fl (80-96) 03/03/18 06:00 MCHC 32.9 g/dl (32.0-36.0) 03/03/18 06:00 RDW 19.6 % (11.6-15.6) H 03/03/18 06:00 Plt Count 220 K/MM3 (134-434) 03/03/18 06:00 Sodium 141 mmol/L (136-145) 03/03/18 06:00 Potassium 4.0 mmol/L (3.5-5.1) 03/03/18 06:00 Chloride 96 mmol/L (98-107) L 03/03/18 06:00 Carbon Dioxide 33 mmol/L (21-32) H 03/03/18 06:00 Anion Gap 12 MMOL/L (8-16) 03/03/18 06:00 BUN 42 mg/dL (7-18) H 03/03/18 06:00 Creatinine 1.6 mg/dL (0.55-1.02) H 03/03/18 06:00 Random Glucose 95 mg/dL (74-106) 03/03/18 06:00 Calcium 8.8 mg/dL (8.5-10.1) 03/03/18 06:00 INR 1.22 (0.83-1.09) H 02/27/18 06:30 B/L Dopplers on 02/26/18 reveal no evidence of DVT Problem List - Problems (1) Cellulitis Assessment/Plan: B/L LE resolving cellulitis with no need for vascular intervention at this time. 1) no melony wrap to LE 2) Elevate LE on pillows when in bed 3) IV ABX per ID 4) OOB with assist as tolerated 5) re-consult vascular surgery PRN Code(s): L03.90 - CELLULITIS, UNSPECIFIED Qualifiers: Site of cellulitis: extremity Site of cellulitis of extremity: lower extremity Laterality: unspecified laterality Qualified Code(s): L03.119 - Cellulitis of unspecified part of limb
[2018-03-03] MEDS: SILVER SULFADIAZINE 1% TOP CREAM 50 GM JAR TP SCH (11:28)
--- NOTE | 2018-03-03 13:09 | PN ---
Physical Exam: SUBJECTIVE: Patient seen and examined OBJECTIVE: Vital Signs Period Temp Pulse Resp BP Sys/Polk Pulse Ox Last 24 Hr 98.5 F-98.7 F 51-73 20-20 109-154/44-93 94 GENERAL: The patient is awake, alert, and fully oriented, in no acute distress. HEAD: Normal with no signs of trauma. EYES: PERRL, extraocular movements intact, sclera anicteric, conjunctiva clear. No ptosis. ENT: Ears normal, nares patent, oropharynx clear without exudates, moist mucous membranes. NECK: Trachea midline, full range of motion, supple. LUNGS: Breath sounds equal, clear to auscultation bilaterally, no wheezes, no crackles, no accessory muscle use. HEART: Regular rate and rhythm, S1, S2 without murmur, rub or gallop. ABDOMEN: Soft, nontender, nondistended, normoactive bowel sounds, no guarding, no rebound, no hepatosplenomegaly, no masses. EXTREMITIES: 2+ pulses, warm, well-perfused, no edema. NEUROLOGICAL: Cranial nerves II through XII grossly intact. Normal speech, gait not observed. PSYCH: Normal mood, normal affect. SKIN: Warm, dry, normal turgor, no rashes or lesions noted Laboratory Results - last 24 hr 03/03/18 03/03/18 03/03/18 06:00 06:00 06:00 WBC 9.1 RBC 3.82 Hgb 10.8 Hct 32.8 MCV 85.8 MCH 28.2 MCHC 32.9 RDW 19.6 H Plt Count 220 MPV 8.7 Absolute Neuts (auto) 5.5 Neutrophils % 60.7 Lymphocytes % 23.4 Monocytes % 10.9 H Eosinophils % 4.3 Basophils % 0.7 Nucleated RBC % 0 PTT (Actin FS) 36.1 Sodium 141 Potassium 4.0 Chloride 96 L Carbon Dioxide 33 H Anion Gap 12 BUN 42 H Creatinine 1.6 H Creat Clearance w eGFR 30.42 Random Glucose 95 Calcium 8.8 Magnesium 2.2 Total Bilirubin 0.8 AST 28 ALT 9 L Alkaline Phosphatase 175 H D Total Protein 6.2 L Albumin 2.8 L Active Medications Generic Name Dose Route Start Last Admin Trade Name Freq PRN Reason Stop Dose Admin Allopurinol 100 mg 02/26/18 10:00 03/03/18 10:00 Zyloprim - PO 100 mg DAILY NOEMÍ Administration Apixaban 5 mg 03/01/18 14:00 03/03/18 10:01 Eliquis - PO 5 mg BID NOEMÍ Administration Atorvastatin Calcium 20 mg 02/26/18 02:30 03/02/18 21:37 Lipitor - PO 20 mg HS NOEMÍ Administration Cholecalciferol 400 unit 02/26/18 10:00 03/03/18 10:01 Vitamin D3 - PO 400 unit DAILY NOEMÍ Administration Digoxin 0.125 mg 02/26/18 10:00 03/03/18 10:00 Lanoxin - PO 0.125 mg DAILY NOEMÍ Administration Diltiazem HCl 180 mg 02/26/18 10:00 03/03/18 10:00 Cardizem Cd - PO 180 mg DAILY NOEMÍ Administration Furosemide 40 mg 03/03/18 10:00 03/03/18 10:01 Lasix - PO 40 mg DAILY NOEMÍ Administration Cefazolin Sodium 1 gm/ 50 mls @ 100 mls/hr 02/26/18 02:00 03/03/18 10:00 Dextrose IVPB 100 mls/hr Q8H-IV NOEMÍ Administration Lactobacillus Acidophilus 1 tab 03/03/18 10:00 03/03/18 10:00 Bacid - PO 1 tab DAILY NOEMÍ Administration Losartan Potassium 100 mg 02/26/18 12:47 03/03/18 10:00 Cozaar - PO 100 mg DAILY NOEMÍ Administration Magnesium Oxide 400 mg 02/26/18 10:00 03/03/18 10:01 Mag-Ox - PO 400 mg DAILY NOEMÍ Administration Metolazone 2.5 mg 02/26/18 09:30 03/03/18 09:26 Zaroxolyn - PO 2.5 mg 0930 NOEMÍ Administration Metoprolol Succinate 100 mg 02/26/18 10:00 03/03/18 10:00 Toprol Xl - PO 100 mg BID NOEMÍ Administration Tetrahydrozoline HCl 1 drop 02/26/18 05:04 Visine - OU BID PRN DRY EYES ASSESSMENT/PLAN: Patient is a 87 year old female with history of chronic lymphedema, HTN, HLD, Afib not on AC admitted for cellulitis of B/L lower extremities. She was started on Ancef 1gm IV Q8H. CXR showed cardiomegaly and increased lung markings in bases. CT head showed no acute intracranial pathology, with right posterior cerebral artery chronic infarct. RUQ US done for elevated Alk Phosphatase showed right sided pleural effusion. Lower extremity doppler showed no DVT in B/L lower extremities. Her legs were wrapped with DES bandages and applied silver sulfadiazine cream to B/L legs. There was dramatic improvement in the lower extremity swelling. Podiatry was consulted for onychomycosis and overgrown toe nails, which were cut. Per ID consult, she was switched to Keflex 500mg PO BID for 5 days which she was discharged with. Cardiology was consulted for Afib not on anticoagulation. She was started on heparin drip and transferred to Elequis 5mg PO BID for anticoagulation. She remained hemodynamically stable. She was continued on home medications Digoxin 0.125mg PO QD, and Metoprolol Succinate 100mg PO BID. Her HTN was managed with home medications Losartan 100mg PO QD, and Diltiazem 180mg PO QD. HLD was managed with home medication Atorvastatin 20mg PO QD. Her cardiac echo showed LVEF that was grossly normal with moderate to severe TR, and MR. Elevated right ventricular systolic pressure at 40-50mmHg. She was hypokalemic and was repleted with K-dur. Her alkaline phosphatese was elevated to 205 and trended down. She was instructed to follow up with her primary care physician, Vascular , Podiatry, and Cardiology within one week of discharge. She was discharged with Eliquis 5mg BID, Lasix 40mg QD, Bacid, and Metalozone 2.5mg QD.
--- NOTE | 2018-03-03 14:02 | PN ---
Teaching Attending Note Name of Resident: Leonardo Bocanegra ATTENDING PHYSICIAN STATEMENT I saw and evaluated the patient. I reviewed the resident's note and discussed the case with the resident. I agree with the resident's findings and plan as documented. SUBJECTIVE: Patient is comfortable , with no acute distress. wants to go to rehab.since feels very weak. OBJECTIVE: Vital Signs Temperature 98.5 F 03/03/18 08:42 Pulse Rate 65 03/03/18 10:00 Respiratory Rate 20 03/03/18 08:42 Blood Pressure 126/93 03/03/18 08:42 O2 Sat by Pulse Oximetry (%) 95 03/03/18 09:00 CBCD WBC 9.1 K/mm3 (4.0-10.0) 03/03/18 06:00 RBC 3.82 M/mm3 (3.60-5.2) 03/03/18 06:00 Hgb 10.8 GM/dL (10.7-15.3) 03/03/18 06:00 Hct 32.8 % (32.4-45.2) 03/03/18 06:00 MCV 85.8 fl (80-96) 03/03/18 06:00 MCHC 32.9 g/dl (32.0-36.0) 03/03/18 06:00 RDW 19.6 % (11.6-15.6) H 03/03/18 06:00 Plt Count 220 K/MM3 (134-434) 03/03/18 06:00 MPV 8.7 fl (7.5-11.1) 03/03/18 06:00 CMP Sodium 141 mmol/L (136-145) 03/03/18 06:00 Potassium 4.0 mmol/L (3.5-5.1) 03/03/18 06:00 Chloride 96 mmol/L (98-107) L 03/03/18 06:00 Carbon Dioxide 33 mmol/L (21-32) H 03/03/18 06:00 Anion Gap 12 MMOL/L (8-16) 03/03/18 06:00 BUN 42 mg/dL (7-18) H 03/03/18 06:00 Creatinine 1.6 mg/dL (0.55-1.02) H 03/03/18 06:00 Creat Clearance w eGFR 30.42 (>60) 03/03/18 06:00 Random Glucose 95 mg/dL (74-106) 03/03/18 06:00 Calcium 8.8 mg/dL (8.5-10.1) 03/03/18 06:00 Total Bilirubin 0.8 mg/dL (0.2-1.0) 03/03/18 06:00 AST 28 U/L (15-37) 03/03/18 06:00 ALT 9 U/L (12-78) L 03/03/18 06:00 Alkaline Phosphatase 175 U/L (45-117) H D 03/03/18 06:00 Total Protein 6.2 g/dl (6.4-8.2) L 03/03/18 06:00 Albumin 2.8 g/dl (3.4-5.0) L 03/03/18 06:00 CARDIAC ENZYMES Creatine Kinase 570 IU/L (26-192) H 02/25/18 18:30 Troponin I 0.05 ng/ml (0.00-0.05) 02/25/18 18:30 Current Medications Generic Name Dose Route Start Last Admin Trade Name Freq PRN Reason Stop Dose Admin Allopurinol 100 mg 02/26/18 10:00 03/03/18 10:00 Zyloprim - PO 100 mg DAILY NOEMÍ Administration Apixaban 5 mg 03/01/18 14:00 03/03/18 10:01 Eliquis - PO 5 mg BID NOEMÍ Administration Atorvastatin Calcium 20 mg 02/26/18 02:30 03/02/18 21:37 Lipitor - PO 20 mg HS NOEMÍ Administration Cholecalciferol 400 unit 02/26/18 10:00 03/03/18 10:01 Vitamin D3 - PO 400 unit DAILY NOEMÍ Administration Digoxin 0.125 mg 02/26/18 10:00 03/03/18 10:00 Lanoxin - PO 0.125 mg DAILY NOEMÍ Administration Diltiazem HCl 180 mg 02/26/18 10:00 03/03/18 10:00 Cardizem Cd - PO 180 mg DAILY NOEMÍ Administration Furosemide 40 mg 03/03/18 10:00 03/03/18 10:01 Lasix - PO 40 mg DAILY NOEMÍ Administration Cefazolin Sodium 1 gm/ 50 mls @ 100 mls/hr 02/26/18 02:00 03/03/18 10:00 Dextrose IVPB 100 mls/hr Q8H-IV NOEMÍ Administration Lactobacillus Acidophilus 1 tab 03/03/18 10:00 03/03/18 10:00 Bacid - PO 1 tab DAILY NOEMÍ Administration Losartan Potassium 100 mg 02/26/18 12:47 03/03/18 10:00 Cozaar - PO 100 mg DAILY NOEMÍ Administration Magnesium Oxide 400 mg 02/26/18 10:00 03/03/18 10:01 Mag-Ox - PO 400 mg DAILY NOEMÍ Administration Metolazone 2.5 mg 02/26/18 09:30 03/03/18 09:26 Zaroxolyn - PO 2.5 mg 0930 NOEMÍ Administration Metoprolol Succinate 100 mg 02/26/18 10:00 03/03/18 10:00 Toprol Xl - PO 100 mg BID NOEMÍ Administration Tetrahydrozoline HCl 1 drop 02/26/18 05:04 Visine - OU BID PRN DRY EYES Home Medications Medication Instructions Recorded Allopurinol [Zyloprim -] 100 mg PO DAILY 02/25/18 Atorvastatin Calcium [Lipitor] 20 mg PO HS 02/25/18 Cholecalciferol (Vitamin D3) 400 unit PO DAILY 02/25/18 [Vitamin D -] Digoxin 125 mcg PO DAILY 02/25/18 Diltiazem HCl [Cartia Xt] 180 mg PO DAILY 02/25/18 Losartan Potassium 100 mg PO DAILY 02/25/18 Magnesium Oxide 400 mg PO DAILY 02/25/18 Metoprolol Succinate [Toprol Xl] 100 mg PO BID 02/25/18 Apixaban [Eliquis -] 5 mg PO BID #60 tablet 03/03/18 Furosemide [Lasix -] 40 mg PO DAILY #30 tablet 03/03/18 Lactobacillus Acidophilus [Bacid -] 1 tab PO DAILY #30 tab 03/03/18 Metolazone [Zaroxolyn -] 2.5 mg PO 0930 #30 tablet 03/03/18 Tetrahydrozoline HCl [Visine -] 1 drop OU BID PRN drops 03/03/18 PE: Lower extremities are improving 1plus edema with mild erythema R>L rest of PE per resident's note ASSESSMENT AND PLAN: Patient is a 87 y/o female with PMHx of HTN, HLD, afib.(not on AC bc of GI bleed), permanant pacemaker and chronic Lymededma presents to the ED with a three day history of worsening weakness of B/L LEs presented with redness and swelling of LEs. # Acute BL lower extremity Cellulitis improved off IV antibiotics Cefazolin , will continue with keflex po 500 bid to finish another 1/5 days. per Bhavin Burgess no Silvaden cream or bandage needed at this time. #LE swelling with edema improved from 3plus to 1plus s/p Lasix 40mg iv bid; switched to po Lasix 40mg daily po, now with Onychomycosis bl with long toe nails were trimmed , POdiatry appreciated. #Elevated BNP 2000, s/p IV lasix 40mg bid , now continue with po Lasix 40mg daily. # Afib : Rate controlled off heparin drip ,continue to monitor h/h. will start the patient on Noac Eliquis as per Cardio recommendation and stop heparin ad aspirin . will continue to monitor H/H #ARF; prerenal azotemia improving , lowered lasix 40mg PO QD. # Anemia:ordered iron and TIBC and ferritin for am please follow # Obesity: weight loss consult with social insurance administrator. DVT prophylaxis: Eliquis now Advance directives - Full code discharge when preauthorization approves per Insurance ,since patient is feeling weak
--- NOTE | 2018-03-03 16:52 | PN ---
Physical Exam: SUBJECTIVE: Patient seen and examined at bedside today. She is sleeping in bed in no acute distress. She admits improvement of swelling in her lower extremities. Also states her weakness is improving. Denies lower extremity pain. Denies fevers, chills, chest pain, palpitations, nausea vomiting, diarrhea , or any bleeding. No acute events overnight. OBJECTIVE: Vital Signs Period Temp Pulse Resp BP Sys/[place]k Pulse Ox Last 24 Hr 98.1 F-98.7 F 51-73 20-20 126-154/48-93 94-95 GENERAL: The patient is awake, alert, and fully oriented, in no acute distress. HEAD: Normal with no signs of trauma. EYES: PERRL, extraocular movements intact, sclera anicteric. ENT: Oropharynx clear without exudates, moist mucous membranes. NECK: Supple without lymphedema. LUNGS: Breath sounds equal, clear to auscultation bilaterally, no wheezes, no crackles. HEART: Irregular rate. +S1, S2 without murmur, rub or gallop. ABDOMEN: Soft, nontender, nondistended, normoactive bowel sounds, no guarding, no rebound, no hepatosplenomegaly. EXTREMITIES: 2+ radial pulses B/L, 1+ DP pulses B/L. NEUROLOGICAL: Cranial nerves II through XII grossly intact. Normal speech PSYCH: Appropriate mood and affect upon my encounter today. SKIN: B/L legs erythematous, edematous 1+ pitting and mildly tender. Cellulitis margins outlined on both legs. Erythema in B/L legs diminishing from outlined margins. Swelling dramatically improving with bandaging of B/L legs. Laboratory Results - last 24 hr 03/03/18 03/03/18 03/03/18 06:00 06:00 06:00 WBC 9.1 RBC 3.82 Hgb 10.8 Hct 32.8 MCV 85.8 MCH 28.2 MCHC 32.9 RDW 19.6 H Plt Count 220 MPV 8.7 Absolute Neuts (auto) 5.5 Neutrophils % 60.7 Lymphocytes % 23.4 Monocytes % 10.9 H Eosinophils % 4.3 Basophils % 0.7 Nucleated RBC % 0 PTT (Actin FS) 36.1 Sodium 141 Potassium 4.0 Chloride 96 L Carbon Dioxide 33 H Anion Gap 12 BUN 42 H Creatinine 1.6 H Creat Clearance w eGFR 30.42 Random Glucose 95 Calcium 8.8 Magnesium 2.2 Total Bilirubin 0.8 AST 28 ALT 9 L Alkaline Phosphatase 175 H D Total Protein 6.2 L Albumin 2.8 L Active Medications Generic Name Dose Route Start Last Admin Trade Name Freq PRN Reason Stop Dose Admin Allopurinol 100 mg 02/26/18 10:00 03/03/18 10:00 Zyloprim - PO 100 mg DAILY NOEMÍ Administration Apixaban 5 mg 03/01/18 14:00 03/03/18 10:01 Eliquis - PO 5 mg BID NOEMÍ Administration Atorvastatin Calcium 20 mg 02/26/18 02:30 03/02/18 21:37 Lipitor - PO 20 mg HS NOEMÍ Administration Cholecalciferol 400 unit 02/26/18 10:00 03/03/18 10:01 Vitamin D3 - PO 400 unit DAILY NOEMÍ Administration Digoxin 0.125 mg 02/26/18 10:00 03/03/18 10:00 Lanoxin - PO 0.125 mg DAILY NOEMÍ Administration Diltiazem HCl 180 mg 02/26/18 10:00 03/03/18 10:00 Cardizem Cd - PO 180 mg DAILY NOEMÍ Administration Furosemide 40 mg 03/03/18 10:00 03/03/18 10:01 Lasix - PO 40 mg DAILY NOEMÍ Administration Cefazolin Sodium 1 gm/ 50 mls @ 100 mls/hr 02/26/18 02:00 03/03/18 10:00 Dextrose IVPB 100 mls/hr Q8H-IV NOEMÍ Administration Lactobacillus Acidophilus 1 tab 03/03/18 10:00 03/03/18 10:00 Bacid - PO 1 tab DAILY NOEMÍ Administration Losartan Potassium 100 mg 02/26/18 12:47 03/03/18 10:00 Cozaar - PO 100 mg DAILY NOEMÍ Administration Magnesium Oxide 400 mg 02/26/18 10:00 03/03/18 10:01 Mag-Ox - PO 400 mg DAILY NOEMÍ Administration Metolazone 2.5 mg 02/26/18 09:30 03/03/18 09:26 Zaroxolyn - PO 2.5 mg 30 NOEMÍ Administration Metoprolol Succinate 100 mg 02/26/18 10:00 03/03/18 10:00 Toprol Xl - PO 100 mg BID NOEMÍ Administration Tetrahydrozoline HCl 1 drop 02/26/18 05:04 Visine - OU BID PRN DRY EYES ASSESSMENT/PLAN: Patient is an 87 y/o female with medical history of HTN, HLD, Afib not on anticoagulation, presents with weakness worse on the left for the past three days and B/L lower extremity erythema and edema with underlying chronic lymphedema. Admitted for cellulitis of B/L lower extremities and weakness. Cellulitis B/L lower extremities -Patient started on Ancef 1gm IV Q8H -ID consult (Dr. Magaña) appreciated: Will continue Ancef 1gm IV Q8H -Lower extremity doppler shows no evidence of DVT B/L legs -Silver sulfadiazine cream B/L lower extremities -Legs wrapped in DES bandage B/L for lower extremity edema. Edema and erythema improving B/L lower extremities. -Podiatry consulted for onychomycosis and overgrown toe nails. Nails cut, and ammonium lactate cream applied to lower extremities B/L. Increasing Alkaline Phosphatemia -Alk phos. 200, increased from 184 on prior study -RUQ ultrasound shows right sided pleural effusion, without right upper quadrant definite pathology. Weakness -Unclear etiology. May be secondary to infectious cause (cellulitis) -TSH 1.47 T3 2.6, Total T3 92.0, Free T4 1.76 -UA showed 1+ protein Afib -Continue home medication: Digoxin 0.125mg PO QD -Continue home medication: Metoprolol Succinate 100mg PO BID -Cardiology consult (Dr. Gramajo) appreciated: Discontinued Heparin drip and began Elequis 5mg PO BID for anticoagulation. PT 14.5, PTT 34.0, INR 1.28. Rectal exam performed before heparin initiation- negative for occult blood. -Cardiac ECHO shows LVEF grossly normal, moderate to severe tricuspid and mitral regurgitation, left atrial and right atrial mild dilation, elevated right ventricular systolic pressure at 40-50mmHg. Hypokalemia -Resolved. Potassium 4.0 today. -As per Cardiology consult, will maintain K+ around 4.0 HTN -Continue home medication: Losartan 100mg PO QD -Continue home medication: Diltiazem 180mg PO QD -Metalazone 2.5mg PO HLD -Atorvastatin 20mg PO Infraorbital erythema -Visine eye drops Prophylaxis -on Elequis 5mg PO BID FEN -No IV fluids -Hypokalemia repleted. Will monitor CMP -Sodium restricted diet Disposition: Continue care on medical-surgical floor. Patient to be discharged likely to SNF , waiting for insurance confirmation. Visit type - Emergency Visit Emergency Visit: No - New Patient This patient is new to me today: No - Critical Care Critical Care patient: No - Discharge Referral Referred to [facility] No
[2018-03-03] MEDS ORDERED: traMADol HCL 50 MG TABLET PO ONE (19:40)
[2018-03-03] MEDS: ATORVASTATIN CA 20 MG TABLET (FP) PO SCH (21:11)
[2018-03-04] MEDS ORDERED: ceFAZolin SODIUM 1 GM VIAL ONE ×3 (02:54→17:55)
[2018-03-04] MEDS ORDERED: DEXTROSE 5%-WATER - 50 ML IVPB ONE ×4 (02:54→20:42)
[2018-03-04] MEDS: CEFAZOLIN 1 GM in DEXTROSE 5%-WATER - 50 ML IVPB SCH ×3 (02:58→18:32)
[2018-03-04 07:39] LABS: CHLORIDE 96 mmol/L (98-107); POTASSIUM 4.1 mmol/L (3.5-5.1); SODIUM 138 mmol/L (136-145)
[2018-03-04 07:48] LABS: ALBUMIN 2.8 g/dl (3.4-5.0); ALK PHOS 168 U/L (45-117); ANION GAP 11 MMOL/L (8-16); BILIRUBIN,TOTAL 0.5 mg/dL (0.2-1.0); BLOOD UREA NITROGEN 54 mg/dL (7-18); CALCIUM 8.6 mg/dL (8.5-10.1); CO2 31 mmol/L (21-32); CREATININE 1.7 mg/dL (0.55-1.02); GLUCOSE,RANDOM 108 mg/dL (74-106); SGOT/AST 24 U/L (15-37); SGPT/ALT 6 U/L (12-78)
[2018-03-04 07:58] LABS: BASO % 0.6 % (0-2.0); EOS % 4.2 % (0-4.5); HEMATOCRIT 31.3 % (32.4-45.2); HEMOGLOBIN 10.3 GM/dL (10.7-15.3); MCH 28.1 pg (25.7-33.7); MCHC 32.8 g/dl (32.0-36.0); MEAN CELL VOLUME 85.6 fl (80-96); MONO % 10.9 % (3.8-10.2); NEUT % 62.3 % (42.8-82.8); PLATELET COUNT 225 K/MM3 (134-434); RBC 3.66 M/mm3 (3.60-5.2); RDW 19.4 % (11.6-15.6); WHITE BLOOD COUNT 10.1 K/mm3 (4.0-10.0)
[2018-03-04] MEDS: METOLAZONE 2.5 MG TABLET (FP) PO SCH (09:50)
[2018-03-04] MEDS: DIGOXIN 0.125 MG TABLET (FP) PO SCH (10:40)
[2018-03-04] MEDS: LOSARTAN POTASSIUM 50 MG TABLET (FP) PO SCH (10:42)
[2018-03-04] MEDS: CHOLECALCIFEROL (VITAMIN D3) 400 UNIT TABLET (FP) PO SCH (10:42)
[2018-03-04] MEDS: LACTOBACILLUS ACIDOPHILUS 1 TABLET PO SCH (10:42)
[2018-03-04] MEDS: MAGNESIUM OXIDE 400 MG TABLET (FP) PO SCH (10:42)
[2018-03-04] MEDS: FUROSEMIDE 40 MG TABLET (FP) PO SCH (10:42)
[2018-03-04] MEDS: APIXABAN 5 MG TABLET PO SCH ×2 (10:42→23:15)
[2018-03-04] MEDS: ALLOPURINOL 100 MG TABLET (FP) PO SCH (10:43)
[2018-03-04 14:26] LABS: URINE APPEARANCE CLOUDY; URINE BILIRUBIN NEGATIVE (<2.0 mg/dL); URINE COLOR YELLOW; URINE GLUCOSE (UA) 1+ (NEGATIVE); URINE KETONE TRACE (NEGATIVE); URINE NITRITE POSITIVE (NEGATIVE); URINE PROTEIN NEGATIVE (NEGATIVE); URINE UROBILINOGEN NEGATIVE mg/dL (0.2-1.0)
[2018-03-04 14:29] LABS: URINE LEUK ESTERASE 3+ (NEGATIVE)
[2018-03-04 14:41] LABS: EPI CELLS RARE /HPF (FEW); URINE BACTERIA FEW /hpf (NONE SEEN); URINE HYALINE CAST 1 /lpf; URINE MUCUS RARE
--- NOTE | 2018-03-04 18:56 | PN ---
Teaching Attending Note Name of Resident: Leonardo Bocanegra ATTENDING PHYSICIAN STATEMENT I saw and evaluated the patient. I reviewed the resident's note and discussed the case with the resident. I agree with the resident's findings and plan as documented. SUBJECTIVE: No fever or chills. No abd pain. has dysuria OBJECTIVE: NAD Cv: RRR Lunsg: CATB ext : 1+ pitting edema , thick skin on legs . ASSESSMENT AND PLAN: 87 y/o lady with h/o HTN, HLP, A fib < PPM , Lymphedema who presneted with worsening LE edema and was found to have celllitis 1- LE cellulites: improved - nsed 4 more days of Abx. will start ceftriaxone for UTI and monitor 2- LE edema . cont lasix po . hold metolazone due to HAILEY . 3- HAILEY : due to excessive diuresis . hold losartan, and metolazone 4- UTI : start ceftriaxone . send cx 5- A fib: cont eliquis . off ASA . cont toprol needs placement
[2018-03-04 19:00] VITALS: BMI 26.7
--- NOTE | 2018-03-04 19:06 | PN ---
Physical Exam: SUBJECTIVE: Patient seen and examined at bedside today. She is sitting in chair eating breakfast in no acute distress. She admits improvement of swelling in her lower extremities. Also states her weakness is improving. Denies lower extremity pain. Denies fevers, chills, chest pain, palpitations, nausea vomiting , diarrhea, or any bleeding. Admits that she has been holding in her urine as she does not like to urinate in her diaper. States she has been feeling burning with urination. Denies hematuria. OBJECTIVE: Vital Signs Period Temp Pulse Resp BP Sys/[place] Pulse Ox Last 24 Hr 97.8 F-98.3 F 57-65 18-20 108-139/48-51 95-97 GENERAL: The patient is awake, alert, and fully oriented, in no acute distress. HEAD: Normal with no signs of trauma. EYES: PERRL, extraocular movements intact, sclera anicteric. ENT: Oropharynx clear without exudates, moist mucous membranes. NECK: Supple without lymphedema. LUNGS: Breath sounds equal, clear to auscultation bilaterally, no wheezes, no crackles. HEART: Irregular rate. +S1, S2 without murmur, rub or gallop. ABDOMEN: Soft, nontender, nondistended, normoactive bowel sounds, no guarding, no rebound, no hepatosplenomegaly. EXTREMITIES: 2+ radial pulses B/L, 1+ DP pulses B/L. NEUROLOGICAL: Cranial nerves II through XII grossly intact. Normal speech PSYCH: Appropriate mood and affect upon my encounter today. SKIN: B/L legs mildly erythematous, edematous 1+ pitting and mildly tender. Cellulitis margins outlined on both legs. Erythema in B/L legs diminishing from outlined margins. Swelling dramatically improving with bandaging of B/L legs. Laboratory Results - last 24 hr 03/03/18 03/04/18 03/04/18 22:00 05:30 05:30 WBC 10.1 H RBC 3.66 Hgb 10.3 L Hct 31.3 L MCV 85.6 MCH 28.1 MCHC 32.8 RDW 19.4 H Plt Count 225 MPV 9.0 Absolute Neuts (auto) 6.3 Neutrophils % 62.3 Lymphocytes % 22.0 Monocytes % 10.9 H Eosinophils % 4.2 Basophils % 0.6 Nucleated RBC % 0 PTT (Actin FS) 37.3 H Sodium Potassium Chloride Carbon Dioxide Anion Gap BUN Creatinine Creat Clearance w eGFR Random Glucose Calcium Ferritin Total Bilirubin AST ALT Alkaline Phosphatase Total Protein Albumin Urine Color Urine Appearance Urine pH Ur Specific [place] Urine Protein Urine Glucose (UA) Urine Ketones Urine Blood Urine Nitrite Urine Bilirubin Urine Urobilinogen Ur Leukocyte Esterase Urine WBC (Auto) Urine RBC (Auto) Ur Epithelial Cells Urine Bacteria Hyaline Casts Urine Mucus Stool Occult Blood Negative 03/04/18 03/04/18 03/04/18 05:30 06:30 11:30 WBC RBC Hgb Hct MCV MCH MCHC RDW Plt Count MPV Absolute Neuts (auto) Neutrophils % Lymphocytes % Monocytes % Eosinophils % Basophils % Nucleated RBC % PTT (Actin FS) Sodium 138 Potassium 4.1 Chloride 96 L Carbon Dioxide 31 Anion Gap 11 BUN 54 H Creatinine 1.7 H Creat Clearance w eGFR 28.36 Random Glucose 108 H Calcium 8.6 Ferritin 37.1 Cancelled Total Bilirubin 0.5 AST 24 ALT 6 L Alkaline Phosphatase 168 H Total Protein 6.0 L Albumin 2.8 L Urine Color Yellow Urine Appearance Cloudy Urine pH 5.0 Ur Specific [place] 1.014 Urine Protein Negative Urine Glucose (UA) 1+ H Urine Ketones Trace H Urine Blood 1+ H Urine Nitrite Positive Urine Bilirubin Negative Urine Urobilinogen Negative Ur Leukocyte Esterase 3+ H Urine WBC (Auto) 423 Urine RBC (Auto) 8 Ur Epithelial Cells Rare Urine Bacteria Few Hyaline Casts 1 Urine Mucus Rare Stool Occult Blood Active Medications Generic Name Dose Route Start Last Admin Trade Name Freq PRN Reason Stop Dose Admin Allopurinol 100 mg 02/26/18 10:00 03/04/18 10:43 Zyloprim - PO 100 mg DAILY NOEMÍ Administration Apixaban 5 mg 03/01/18 14:00 03/04/18 10:42 Eliquis - PO 5 mg BID NOEMÍ Administration Atorvastatin Calcium 20 mg 02/26/18 02:30 03/03/18 21:11 Lipitor - PO 20 mg HS NOEMÍ Administration Cholecalciferol 400 unit 02/26/18 10:00 03/04/18 10:42 Vitamin D3 - PO 400 unit DAILY NOEMÍ Administration Digoxin 0.125 mg 02/26/18 10:00 03/04/18 10:40 Lanoxin - PO 0.125 mg DAILY NOEMÍ Administration Diltiazem HCl 180 mg 02/26/18 10:00 03/04/18 10:42 Cardizem Cd - PO 180 mg DAILY NOEMÍ Administration Furosemide 40 mg 03/03/18 10:00 03/04/18 10:42 Lasix - PO 40 mg DAILY NOEMÍ Administration Ceftriaxone Sodium 1,000 mg/ 50 mls @ 100 mls/hr 03/04/18 19:00 Dextrose IVPB Q24H NOEMÍ Lactobacillus Acidophilus 1 tab 03/03/18 10:00 03/04/18 10:42 Bacid - PO 1 tab DAILY NOEMÍ Administration Magnesium Oxide 400 mg 02/26/18 10:00 03/04/18 10:42 Mag-Ox - PO 400 mg DAILY NOEMÍ Administration Metoprolol Succinate 100 mg 02/26/18 10:00 03/04/18 10:43 Toprol Xl - PO 100 mg BID NOEMÍ Administration Tetrahydrozoline HCl 1 drop 02/26/18 05:04 Visine - OU BID PRN DRY EYES ASSESSMENT/PLAN: Patient is an 87 y/o female with medical history of HTN, HLD, Afib not on anticoagulation, presents with weakness worse on the left for the past three days and B/L lower extremity erythema and edema with underlying chronic lymphedema. Admitted for cellulitis of B/L lower extremities and weakness. Cellulitis B/L lower extremities -Patient started on Ancef 1gm IV Q8H -ID consult (Dr. Magaña) appreciated: Will continue Ancef 1gm IV Q8H -Lower extremity doppler shows no evidence of DVT B/L legs -Silver sulfadiazine cream B/L lower extremities -Legs wrapped in DES bandage B/L for lower extremity edema. Edema and erythema improving B/L lower extremities. -Podiatry consulted for onychomycosis and overgrown toe nails. Nails cut, and ammonium lactate cream applied to lower extremities B/L. UTI -UA showed 3+ leukocyte esterase, 1+ blood, trace ketones, 1+ glucose, WBC 423. -Urine culture ordered. Will F/U. -Begin Ceftriaxone 1gm IV QD HAILEY -BUN 54 increased from 42 yesterday. Cr 1.7 increased from 1.6 yesterday -Likely secondary to diuresis. Will hold Losartan 100mg and -Metalazone 2.5mg Increasing Alkaline Phosphatemia -Alk phos. 200, increased from 184 on prior study -RUQ ultrasound shows right sided pleural effusion, without right upper quadrant definite pathology. Weakness -Unclear etiology. May be secondary to infectious cause (cellulitis) -TSH 1.47 T3 2.6, Total T3 92.0, Free T4 1.76 -UA showed 1+ protein Afib -Continue home medication: Digoxin 0.125mg PO QD -Continue home medication: Metoprolol Succinate 100mg PO BID -Cardiology consult (Dr. Gramajo) appreciated: Discontinued Heparin drip and began Elequis 5mg PO BID for anticoagulation. PT 14.5, PTT 34.0, INR 1.28. Rectal exam performed before heparin initiation- negative for occult blood. -Cardiac ECHO shows LVEF grossly normal, moderate to severe tricuspid and mitral regurgitation, left atrial and right atrial mild dilation, elevated right ventricular systolic pressure at 40-50mmHg. Hypokalemia -Resolved. Potassium 4.0 today. -As per Cardiology consult, will maintain K+ around 4.0 HTN -Will hold: Losartan 100mg PO QD and Metalazone 2.5mg PO -Continue home medication: Diltiazem 180mg PO QD HLD -Atorvastatin 20mg PO Infraorbital erythema -Visine eye drops Prophylaxis -on Elequis 5mg PO BID FEN -No IV fluids -Hypokalemia repleted. Will monitor CMP -Sodium restricted diet Disposition: Continue care on medical-surgical floor. Patient to be discharged likely to SNF , waiting for insurance confirmation. Visit type - Emergency Visit Emergency Visit: No - New Patient This patient is new to me today: No - Critical Care Critical Care patient: No - Discharge Referral Referred to [facility] Med P.[facility] No
[2018-03-04] MEDS ORDERED: cefTRIAXone SODIUM 1 GM VIAL ONE (20:42)
[2018-03-04] MEDS: CEFTRIAXONE 1 GM in DEXTROSE 5%-WATER - 50 ML IVPB SCH (20:50)
[2018-03-04] MEDS ORDERED: PT OWN MED DRAWER 7, Y5N ONE (21:04)
[2018-03-04] MEDS ORDERED: CEPHALEXIN MONOHYDRATE 500 MG CAPSULE (UD) PO SCH (22:00)
[2018-03-04] MEDS: ATORVASTATIN CA 20 MG TABLET (FP) PO SCH (23:16)
[2018-03-05 06:06] LABS: SERUM IRON SATURATION 15 % (15-55); TOTAL IRON BINDING CAPACITY 345 ug/dL (250-450); UIBC 293 ug/dL (118-369)
[2018-03-05 07:03] LABS: BASO % 0.6 % (0-2.0); EOS % 5.6 % (0-4.5); HEMOGLOBIN 10.3 GM/dL (10.7-15.3); LYMPH % 22.4 % (8-40); MCH 27.7 pg (25.7-33.7); MCHC 32.1 g/dl (32.0-36.0); MEAN CELL VOLUME 86.3 fl (80-96); MEAN PLT VOLUME 8.6 fl (7.5-11.1); MONO % 10.9 % (3.8-10.2); NEUT % 60.5 % (42.8-82.8); PLATELET COUNT 232 K/MM3 (134-434); RBC 3.71 M/mm3 (3.60-5.2); RDW 19.7 % (11.6-15.6)
[2018-03-05 07:56] LABS: CALCIUM 8.3 mg/dL (8.5-10.1); CHLORIDE 96 mmol/L (98-107); POTASSIUM 4.4 mmol/L (3.5-5.1); SODIUM 137 mmol/L (136-145)
[2018-03-05 08:02] LABS: ALBUMIN 2.9 g/dl (3.4-5.0); ALK PHOS 159 U/L (45-117); ANION GAP 12 MMOL/L (8-16); BILIRUBIN,TOTAL 0.6 mg/dL (0.2-1.0); BLOOD UREA NITROGEN 59 mg/dL (7-18); CO2 29 mmol/L (21-32); CREATININE 1.7 mg/dL (0.55-1.02); GLUCOSE,RANDOM 101 mg/dL (74-106); SGOT/AST 18 U/L (15-37); SGPT/ALT 8 U/L (12-78); TOT PROT 6.1 g/dl (6.4-8.2)
[2018-03-05] MEDS ORDERED: cefTRIAXone SODIUM 1 GM VIAL ONE (10:05)
[2018-03-05] MEDS ORDERED: DEXTROSE 5%-WATER - 50 ML IVPB ONE (10:05)
[2018-03-05] MEDS: CEFTRIAXONE 1 GM in DEXTROSE 5%-WATER - 50 ML IVPB SCH (10:07)
[2018-03-05] MEDS: LACTOBACILLUS ACIDOPHILUS 1 TABLET PO SCH (10:10)
[2018-03-05] MEDS: FUROSEMIDE 40 MG TABLET (FP) PO SCH (10:11)
[2018-03-05] MEDS: DIGOXIN 0.125 MG TABLET (FP) PO SCH (10:11)
[2018-03-05] MEDS: MAGNESIUM OXIDE 400 MG TABLET (FP) PO SCH (10:12)
[2018-03-05] MEDS: CHOLECALCIFEROL (VITAMIN D3) 400 UNIT TABLET (FP) PO SCH (10:14)
[2018-03-05] MEDS: ALLOPURINOL 100 MG TABLET (FP) PO SCH (10:14)
[2018-03-05] MEDS: APIXABAN 5 MG TABLET PO SCH (10:16)
--- NOTE | 2018-03-05 11:36 | PN ---
Physical Exam: SUBJECTIVE: Patient seen and examined at bedside today. She is resting in bed with both legs elevated in no acute distress. She admits improvement of swelling in her lower extremities. Also states her weakness is improving. Denies lower extremity pain. Denies fevers, chills, chest pain, palpitations, nausea vomiting, diarrhea, or any bleeding. Admits urinating last night, and had urge to urinate this morning upon my encounter. States that dysuria is improving, and denies hematuria. OBJECTIVE: Vital Signs Period Temp Pulse Resp BP Sys/[place] Pulse Ox Last 24 Hr 97.8 F-98.2 F 50-67 20-20 123-126/48-63 96 GENERAL: The patient is awake, alert, and fully oriented, in no acute distress. HEAD: Normal with no signs of trauma. EYES: PERRL, extraocular movements intact, sclera anicteric. ENT: Oropharynx clear without exudates, moist mucous membranes. NECK: Supple without lymphedema. LUNGS: Breath sounds equal, clear to auscultation bilaterally, no wheezes, no crackles. HEART: Irregular rate. +S1, S2. Holosystolic murmur auscultated at left upper sternal border without radiation to carotids. ABDOMEN: Soft, nontender, nondistended, normoactive bowel sounds, no guarding, no rebound, no hepatosplenomegaly. 2.5cm midline umbilical hernia, reducible, painless. EXTREMITIES: 2+ radial pulses B/L, 1+ DP pulses B/L. NEUROLOGICAL: Cranial nerves II through XII grossly intact. Normal speech PSYCH: Appropriate mood and affect upon my encounter today. SKIN: B/L legs mildly erythematous. Significantly improved from admission. Left leg 2+ pitting edema, tender. Right leg 1+ pitting edema, also tender. Erythema and swelling in B/L legs diminishing from outlined margins Laboratory Results - last 24 hr 03/04/18 03/04/18 03/05/18 05:30 11:30 06:30 WBC 10.0 RBC 3.71 Hgb 10.3 L Hct 32.0 L MCV 86.3 MCH 27.7 MCHC 32.1 RDW 19.7 H Plt Count 232 MPV 8.6 Absolute Neuts (auto) 6.0 Neutrophils % 60.5 Lymphocytes % 22.4 Monocytes % 10.9 H Eosinophils % 5.6 H Basophils % 0.6 Nucleated RBC % 0 Sodium Potassium Chloride Carbon Dioxide Anion Gap BUN Creatinine Creat Clearance w eGFR Random Glucose Calcium Iron 52 TIBC 345 Iron Saturation 15 Total Bilirubin AST ALT Alkaline Phosphatase Total Protein Albumin Urine Color Yellow Urine Appearance Cloudy Urine pH 5.0 Ur Specific [place] 1.014 Urine Protein Negative Urine Glucose (UA) 1+ H Urine Ketones Trace H Urine Blood 1+ H Urine Nitrite Positive Urine Bilirubin Negative Urine Urobilinogen Negative Ur Leukocyte Esterase 3+ H Urine WBC (Auto) 423 Urine RBC (Auto) 8 Ur Epithelial Cells Rare Urine Bacteria Few Hyaline Casts 1 Urine Mucus Rare 03/05/18 06:30 WBC RBC Hgb Hct MCV MCH MCHC RDW Plt Count MPV Absolute Neuts (auto) Neutrophils % Lymphocytes % Monocytes % Eosinophils % Basophils % Nucleated RBC % Sodium 137 Potassium 4.4 Chloride 96 L Carbon Dioxide 29 Anion Gap 12 BUN 59 H Creatinine 1.7 H Creat Clearance w eGFR 28.36 Random Glucose 101 Calcium 8.3 L Iron TIBC Iron Saturation Total Bilirubin 0.6 AST 18 ALT 8 L Alkaline Phosphatase 159 H Total Protein 6.1 L Albumin 2.9 L Urine Color Urine Appearance Urine pH Ur Specific [place] Urine Protein Urine Glucose (UA) Urine Ketones Urine Blood Urine Nitrite Urine Bilirubin Urine Urobilinogen Ur Leukocyte Esterase Urine WBC (Auto) Urine RBC (Auto) Ur Epithelial Cells Urine Bacteria Hyaline Casts Urine Mucus Active Medications Generic Name Dose Route Start Last Admin Trade Name Freq PRN Reason Stop Dose Admin Allopurinol 100 mg 02/26/18 10:00 03/05/18 10:14 Zyloprim - PO 100 mg DAILY NOEMÍ Administration Apixaban 2.5 mg 03/05/18 10:45 Eliquis - PO BID NOEMÍ Atorvastatin Calcium 20 mg 02/26/18 02:30 03/04/18 23:16 Lipitor - PO 20 mg HS NOEMÍ Administration Cholecalciferol 400 unit 02/26/18 10:00 03/05/18 10:14 Vitamin D3 - PO 400 unit DAILY NOEMÍ Administration Digoxin 0.125 mg 02/26/18 10:00 03/05/18 10:11 Lanoxin - PO 0.125 mg DAILY NOEMÍ Administration Diltiazem HCl 180 mg 02/26/18 10:00 03/05/18 10:10 Cardizem Cd - PO 180 mg DAILY NOEMÍ Administration Furosemide 40 mg 03/03/18 10:00 03/05/18 10:11 Lasix - PO 40 mg DAILY NOEMÍ Administration Ceftriaxone Sodium 1 gm/ 50 mls @ 100 mls/hr 03/04/18 19:15 03/05/18 10:07 Dextrose IVPB 100 mls/hr DAILY NOEMÍ Administration Lactobacillus Acidophilus 1 tab 03/03/18 10:00 03/05/18 10:10 Bacid - PO 1 tab DAILY NOEMÍ Administration Magnesium Oxide 400 mg 02/26/18 10:00 03/05/18 10:12 Mag-Ox - PO 400 mg DAILY NOEMÍ Administration Metoprolol Succinate 100 mg 02/26/18 10:00 03/05/18 10:12 Toprol Xl - PO Not Given BID NOEMÍ Tetrahydrozoline HCl 1 drop 02/26/18 05:04 Visine - OU BID PRN DRY EYES ASSESSMENT/PLAN: Patient is an 87 y/o female with medical history of HTN, HLD, Afib now on Elequis, presents with weakness worse on the left for three days and B/L lower extremity erythema and edema with underlying chronic lymphedema. Admitted for cellulitis of B/L lower extremities and weakness. Cellulitis B/L lower extremities -Ceftriaxone 1gram IV QD (day 2) -Lower extremity doppler shows no evidence of DVT B/L legs -Edema and erythema improving B/L lower extremities. -Podiatry consulted for onychomycosis and overgrown toe nails. Nails cut, and ammonium lactate cream applied to lower extremities B/L. UTI -UA showed 3+ leukocyte esterase, 1+ blood, trace ketones, 1+ glucose, WBC 423. -Urine culture ordered. Will F/U cx -Ceftriaxone 1gram IV QD (day 2) HAILEY -BUN 59 increased from 54 yesterday. Cr 1.7 same as yesterday. -Likely secondary to diuresis. Will hold Losartan 100mg and Metalazone 2.5mg -Will F/U Digoxin level Alkaline Phosphatemia -Alk phos. peaked at 205, an decreasing 175 -> 168 today. -RUQ ultrasound shows right sided pleural effusion, without right upper quadrant definite pathology. Weakness -Unclear etiology. May be secondary to infectious cause (cellulitis) -TSH 1.47 T3 2.6, Total T3 92.0, Free T4 1.76 -UA showed 1+ protein Afib -Continue home medication: Digoxin 0.125mg PO QD -Continue home medication: Metoprolol Succinate 100mg PO BID -Cardiology consult (Dr. Gramajo) appreciated: Discontinued Heparin drip and began Elequis 5mg PO BID for anticoagulation. PT 14.5, PTT 34.0, INR 1.28. Rectal exam performed before heparin initiation- negative for occult blood. -Due to patient's rising Cr, will decrease Elequis to 2.5mg BID. -Cardiac ECHO shows LVEF grossly normal, moderate to severe tricuspid and mitral regurgitation, left atrial and right atrial mild dilation, elevated right ventricular systolic pressure at 40-50mmHg. Hypokalemia -Resolved. Potassium 4.4 today. -As per Cardiology consult, will maintain K+ around 4.0 HTN -Will hold: Losartan 100mg PO QD and Metalazone 2.5mg PO -Continue home medication: Diltiazem 180mg PO QD HLD -Atorvastatin 20mg PO Infraorbital erythema -Visine eye drops Prophylaxis -on Elequis 2.5mg PO BID FEN -No IV fluids -Hypokalemia repleted. Will monitor CMP -Sodium restricted diet Disposition: Continue care on medical-surgical floor. Patient to be discharged likely to SNF , waiting for insurance confirmation. Visit type - Emergency Visit Emergency Visit: Yes ED Registration Date: 02/25/18 Care time: The patient presented to the Emergency Department on the above date and was hospitalized for further evaluation of their emergent condition. - New Patient This patient is new to me today: No - Critical Care Critical Care patient: No - Discharge Referral Referred to [facility] Med P.C.: No
[2018-03-05] MEDS: APIXABAN 2.5 MG TABLET PO SCH ×2 (12:01→21:48)
--- NOTE | 2018-03-05 13:29 | PN ---
Teaching Attending Note Name of Resident: Leonardo Bocanegra ATTENDING PHYSICIAN STATEMENT I saw and evaluated the patient. I reviewed the resident's note and discussed the case with the resident. I agree with the resident's findings and plan as documented. SUBJECTIVE: No fever or chills . No abd pain, no dysuria today . No abd pain. OBJECTIVE: NAD Cv: RRR Lunsg: CATB Ext : 1+ pitting edema and thick skin on legs and feet. ASSESSMENT AND PLAN: 87 y/o lady with h/o HTN, HLP, A fib , PPM , Lymphedema who presneted with worsening LE edema and was found to have celllitis 1- LE cellulites: improved - need 3 more days of Abx . on ceftriaxone now 2- LE edema. cont lasix po . cont to hold metolazone due to HAILEY . 3- HAILEY: due to excessive diuresis. Cr plateaued. cont to hold losartan, and metolazone 4- UTI : day 2 of ceftriaxone . urine cx pending 5- A fib: cont eliquis but decrease dose to 2.5 mg bid as patient is 87 y/o and has cr of 1.7. off ASA . cont toprol,digoxin and cardizem. check a dig level in setting of renal failure will dc to rehab when urine cx is available.
[2018-03-05] MEDS ORDERED: PT OWN MED DRAWER 7, Y5N ONE (21:43)
[2018-03-05] MEDS: ATORVASTATIN CA 20 MG TABLET (FP) PO SCH (21:48)
[2018-03-06 08:00] LABS: BASO % 0.7 % (0-2.0); EOS % 4.8 % (0-4.5); HEMATOCRIT 31.6 % (32.4-45.2); HEMOGLOBIN 10.2 GM/dL (10.7-15.3); LYMPH % 24.4 % (8-40); MCH 27.8 pg (25.7-33.7); MCHC 32.4 g/dl (32.0-36.0); MEAN CELL VOLUME 85.7 fl (80-96); MEAN PLT VOLUME 8.6 fl (7.5-11.1); MONO % 11.7 % (3.8-10.2); NEUT % 58.4 % (42.8-82.8); PLATELET COUNT 213 K/MM3 (134-434); RBC 3.69 M/mm3 (3.60-5.2); RDW 19.8 % (11.6-15.6); WHITE BLOOD COUNT 8.3 K/mm3 (4.0-10.0)
[2018-03-06 08:43] LABS: CHLORIDE 98 mmol/L (98-107); POTASSIUM 4.4 mmol/L (3.5-5.1); SODIUM 138 mmol/L (136-145)
[2018-03-06 08:49] LABS: ALBUMIN 2.9 g/dl (3.4-5.0); ALK PHOS 155 U/L (45-117); ANION GAP 5 MMOL/L (8-16); BILIRUBIN,TOTAL 0.5 mg/dL (0.2-1.0); BLOOD UREA NITROGEN 65 mg/dL (7-18); CALCIUM 8.6 mg/dL (8.5-10.1); CO2 35 mmol/L (21-32); CREATININE 1.8 mg/dL (0.55-1.02); GLUCOSE,RANDOM 92 mg/dL (74-106); SGOT/AST 20 U/L (15-37); SGPT/ALT 6 U/L (12-78); TOT PROT 6.2 g/dl (6.4-8.2)
[2018-03-06] MEDS ORDERED: cefTRIAXone SODIUM 1 GM VIAL ONE (09:16)
[2018-03-06] MEDS ORDERED: DEXTROSE 5%-WATER - 50 ML IVPB ONE (09:16)
[2018-03-06] MEDS: FUROSEMIDE 40 MG TABLET (FP) PO SCH (09:49)
[2018-03-06] MEDS: MAGNESIUM OXIDE 400 MG TABLET (FP) PO SCH (09:49)
[2018-03-06] MEDS: CHOLECALCIFEROL (VITAMIN D3) 400 UNIT TABLET (FP) PO SCH (09:49)
[2018-03-06] MEDS: APIXABAN 2.5 MG TABLET PO SCH ×2 (09:50→22:36)
[2018-03-06] MEDS: ALLOPURINOL 100 MG TABLET (FP) PO SCH (09:50)
[2018-03-06] MEDS: LACTOBACILLUS ACIDOPHILUS 1 TABLET PO SCH (09:50)
[2018-03-06] MEDS: CEFTRIAXONE 1 GM in DEXTROSE 5%-WATER - 50 ML IVPB SCH (09:50)
--- NOTE | 2018-03-06 12:47 | PN ---
Physical Exam: SUBJECTIVE: Patient seen and examined at bedside this morning. She was sitting on the chair with legs elevated. No acute distress. Admits headache today. Admits improvement of leg swelling, bit still complains of pain of lower extremities when pressing deeply. Has urinated today. Denies hematuria, dysuria. Denies fevers, chills, chest pain, palpitations, shortness of breath, nausea, vomiting, diarrhea. Denies any bleeding. OBJECTIVE: Vital Signs Period Temp Pulse Resp BP Sys/[place] Pulse Ox Last 24 Hr 97.8 F-98.3 F 52-79 18-20 118-150/51-69 GENERAL: The patient is awake, alert, and fully oriented, in no acute distress. HEAD: Normal with no signs of trauma. EYES: PERRL, extraocular movements intact, sclera anicteric. ENT: Oropharynx clear without exudates, moist mucous membranes. NECK: Supple without lymphedema. LUNGS: Breath sounds equal, clear to auscultation bilaterally, no wheezes, no crackles. HEART: Irregular rate. +S1, S2. Holosystolic murmur auscultated at left upper sternal border without radiation to carotids. ABDOMEN: Soft, nontender, nondistended, normoactive bowel sounds, no guarding, no rebound, no hepatosplenomegaly. 2.5cm midline umbilical hernia, reducible, painless. EXTREMITIES: 2+ radial pulses B/L, 1+ DP pulses B/L. NEUROLOGICAL: Cranial nerves II through XII grossly intact. Normal speech PSYCH: Appropriate mood and affect upon my encounter today. SKIN: B/L legs mildly erythematous. Significantly improved from admission. Left leg 2+ pitting edema, tender. Right leg 1+ pitting edema, also tender. Erythema and swelling in B/L legs diminishing from outlined margins Laboratory Results - last 24 hr 03/05/18 03/06/18 03/06/18 14:33 07:00 07:00 WBC 8.3 RBC 3.69 Hgb 10.2 L Hct 31.6 L MCV 85.7 MCH 27.8 MCHC 32.4 RDW 19.8 H Plt Count 213 MPV 8.6 Absolute Neuts (auto) 4.8 Neutrophils % 58.4 Lymphocytes % 24.4 Monocytes % 11.7 H Eosinophils % 4.8 H Basophils % 0.7 Nucleated RBC % 0 Sodium 138 Potassium 4.4 Chloride 98 Carbon Dioxide 35 H Anion Gap 5 L BUN 65 H Creatinine 1.8 H Creat Clearance w eGFR 26.55 Random Glucose 92 Calcium 8.6 Total Bilirubin 0.5 AST 20 ALT 6 L Alkaline Phosphatase 155 H Total Protein 6.2 L Albumin 2.9 L Digoxin 1.33 Active Medications Generic Name Dose Route Start Last Admin Trade Name Freq PRN Reason Stop Dose Admin Allopurinol 100 mg 02/26/18 10:00 03/06/18 09:50 Zyloprim - PO 100 mg DAILY NOEMÍ Administration Apixaban 2.5 mg 03/05/18 10:45 03/06/18 09:50 Eliquis - PO 2.5 mg BID NOEMÍ Administration Atorvastatin Calcium 20 mg 02/26/18 02:30 03/05/18 21:48 Lipitor - PO 20 mg HS NOEMÍ Administration Cholecalciferol 400 unit 02/26/18 10:00 03/06/18 09:49 Vitamin D3 - PO 400 unit DAILY NOEMÍ Administration Diltiazem HCl 180 mg 03/06/18 11:55 Cardizem Cd - PO DAILY NOEMÍ Furosemide 20 mg 03/06/18 11:11 Lasix - PO DAILY NOEMÍ Ceftriaxone Sodium 1 gm/ 50 mls @ 100 mls/hr 03/04/18 19:15 03/06/18 09:50 Dextrose IVPB 100 mls/hr DAILY NOEMÍ Administration Lactobacillus Acidophilus 1 tab 03/03/18 10:00 03/06/18 09:50 Bacid - PO 1 tab DAILY NOEMÍ Administration Magnesium Oxide 400 mg 02/26/18 10:00 03/06/18 09:49 Mag-Ox - PO 400 mg DAILY NOEMÍ Administration Metoprolol Succinate 100 mg 03/06/18 11:55 Toprol Xl - PO BID NOEMÍ Tetrahydrozoline HCl 1 drop 02/26/18 05:04 Visine - OU BID PRN DRY EYES ASSESSMENT/PLAN: Patient is an 87 y/o female with medical history of HTN, HLD, Afib now on Elequis, presents with weakness worse on the left for three days and B/L lower extremity erythema and edema with underlying chronic lymphedema. Admitted for cellulitis of B/L lower extremities and weakness. Cellulitis B/L lower extremities -Ceftriaxone 1gram IV QD (day 3) -Lower extremity doppler shows no evidence of DVT B/L legs -Edema and erythema improving B/L lower extremities. -Podiatry consulted for onychomycosis and overgrown toe nails. Nails cut, and ammonium lactate cream applied to lower extremities B/L. -Lasix 20mg PO BID UTI -UA showed 3+ leukocyte esterase, 1+ blood, trace ketones, 1+ glucose, WBC 423. -Urine culture shows preliminary lactose fermenting gram negative bacilli, >100, 000 CFU. -Ceftriaxone 1gram IV QD (day 3) HAILEY -BUN 65 increased from 59 yesterday. Cr 1.8 increased from yesterday 1.7. -Likely secondary to diuresis. Decreased Lasix to 20mg PO BID -Hold Losartan 100mg and Metalazone 2.5mg -Decreased Elequis to 2.5mg BID -D/C Digoxin. Alkaline Phosphatemia -Alk phos. peaked at 205, an decreasing 175 -> 168 today. -RUQ ultrasound shows right sided pleural effusion, without right upper quadrant definite pathology. Weakness -Unclear etiology. May be secondary to infectious cause (cellulitis) -TSH 1.47 T3 2.6, Total T3 92.0, Free T4 1.76 -UA showed 1+ protein Afib -D/C Digoxin 0.125mg PO QD (Digoxin level was 1.33, however patient has been rate controlled). -Continue home medication: Metoprolol Succinate 100mg PO BID -Cardiology consult (Dr. Gramajo) appreciated: Discontinued Heparin drip and began Elequis 5mg PO BID for anticoagulation. PT 14.5, PTT 34.0, INR 1.28. Rectal exam performed before heparin initiation- negative for occult blood. -Due to patient's rising Cr, will decrease Elequis to 2.5mg BID. -Cardiac ECHO shows LVEF grossly normal, moderate to severe tricuspid and mitral regurgitation, left atrial and right atrial mild dilation, elevated right ventricular systolic pressure at 40-50mmHg. Hypokalemia -Resolved. Potassium 4.4 today. -As per Cardiology consult, will maintain K+ around 4.0 HTN -Will hold: Losartan 100mg PO QD and Metalazone 2.5mg PO -Continue home medication: Diltiazem 180mg PO QD. Hold if HR less than 55; SBP less than 100; DBP less than 60 -Continue home medication: Metoprolol Succinate 100mg PO BID. Hold if HR less than 55; SBP less than 100; DBP less than 60 HLD -Atorvastatin 20mg PO Infraorbital erythema -Visine eye drops Prophylaxis -on Elequis 2.5mg PO BID FEN -No IV fluids -Will monitor CMP -Sodium restricted diet Disposition: Continue care on medical-surgical floor. Patient to be discharged likely to SNF , pending urine cultures and sensitivities to determine appropriate oral antibiotics for discharge. Visit type - Emergency Visit Emergency Visit: Yes ED Registration Date: 02/25/18 Care time: The patient presented to the Emergency Department on the above date and was hospitalized for further evaluation of their emergent condition. - New Patient This patient is new to me today: No - Critical Care Critical Care patient: No - Discharge Referral Referred to [facility] Med P.C.: No
--- NOTE | 2018-03-06 16:16 | PN ---
Teaching Attending Note Name of Resident: Leonardo Bocanegra ATTENDING PHYSICIAN STATEMENT I saw and evaluated the patient. I reviewed the resident's note and discussed the case with the resident. I agree with the resident's findings and plan as documented. SUBJECTIVE: No fever or chills. No abd pain , no dysuria OBJECTIVE: NAD Cv: RRR Lunsg: CATB Ext: 1+ pitting edema and thick skin on legs and feet. ASSESSMENT AND PLAN: 87 y/o lady with h/o HTN, HLP, A fib , PPM , Lymphedema who presneted with worsening LE edema and was found to have celllitis 1- LE cellulites: improved - need 2 more days of Abx for this . on ceftriaxone now 2- LE edema. decrease lasix to 20. cont to hold metolazone due to HAILEY . 3- HAILEY: due to excessive diuresis. cont to hold losartan, and metolazone . decrease lasix 4- UTI : day 3 of ceftriaxone . urine cx with lactose fermenting and a pending organism 5- A fib: cont eliquis at 2.5 bid off ASA . cont toprol, cardizem. dc digoxin due to bradycardia dc to rehab pending cx
[2018-03-06] MEDS ORDERED: PT OWN MED DRAWER 7, Y5N ONE (22:32)
[2018-03-06] MEDS: ATORVASTATIN CA 20 MG TABLET (FP) PO SCH (22:36)
[2018-03-07 06:55] LABS: BASO % 0.9 % (0-2.0); EOS % 3.9 % (0-4.5); HEMATOCRIT 30.1 % (32.4-45.2); HEMOGLOBIN 9.9 GM/dL (10.7-15.3); LYMPH % 25.7 % (8-40); MCH 28.2 pg (25.7-33.7); MCHC 32.9 g/dl (32.0-36.0); MEAN CELL VOLUME 85.9 fl (80-96); MEAN PLT VOLUME 8.8 fl (7.5-11.1); NEUT % 56.5 % (42.8-82.8); PLATELET COUNT 211 K/MM3 (134-434); RDW 19.6 % (11.6-15.6); WHITE BLOOD COUNT 7.9 K/mm3 (4.0-10.0)
[2018-03-07 07:40] LABS: CHLORIDE 98 mmol/L (98-107); POTASSIUM 4.1 mmol/L (3.5-5.1); SODIUM 139 mmol/L (136-145)
[2018-03-07 07:59] LABS: ALBUMIN 2.9 g/dl (3.4-5.0); ALK PHOS 151 U/L (45-117); ANION GAP 9 MMOL/L (8-16); BILIRUBIN,TOTAL 0.8 mg/dL (0.2-1.0); BLOOD UREA NITROGEN 64 mg/dL (7-18); CALCIUM 8.8 mg/dL (8.5-10.1); CO2 32 mmol/L (21-32); CREATININE 1.7 mg/dL (0.55-1.02); GLUCOSE,RANDOM 94 mg/dL (74-106); SGOT/AST 22 U/L (15-37); SGPT/ALT 7 U/L (12-78); TOT PROT 6.3 g/dl (6.4-8.2)
[2018-03-07] MEDS ORDERED: ACETAMINOPHEN 325 MG TABLET (FP) PO PRN (09:41)
[2018-03-07] MEDS ORDERED: cefTRIAXone SODIUM 1 GM VIAL ONE (10:30)
[2018-03-07] MEDS: LACTOBACILLUS ACIDOPHILUS 1 TABLET PO SCH (10:45)
[2018-03-07] MEDS: APIXABAN 2.5 MG TABLET PO SCH ×2 (10:48→22:08)
[2018-03-07] MEDS: MAGNESIUM OXIDE 400 MG TABLET (FP) PO SCH (10:49)
[2018-03-07] MEDS: FUROSEMIDE 20 MG TABLET (FP) PO SCH (10:49)
[2018-03-07] MEDS: CEFTRIAXONE 1 GM in DEXTROSE 5%-WATER - 50 ML IVPB SCH (10:51)
[2018-03-07] MEDS: CHOLECALCIFEROL (VITAMIN D3) 400 UNIT TABLET (FP) PO SCH (10:51)
[2018-03-07] MEDS: ALLOPURINOL 100 MG TABLET (FP) PO SCH (10:52)
--- NOTE | 2018-03-07 11:40 | PN ---
Physical Exam: SUBJECTIVE: Patient seen and examined. Had mild headaches which she says is due to lack of sleep. Denies urinary symptoms, chest pain, sob, nausea, vomiting. OBJECTIVE: Vital Signs Period Temp Pulse Resp BP Sys/Polk Pulse Ox Last 24 Hr 98 F-98.3 F 50-79 20-20 115-149/48-52 95 GENERAL: The patient is awake, alert, and fully oriented, in no acute distress. EYES: PERRL, extraocular movements intact, sclera anicteric, conjunctiva clear. ENT: moist mucous membranes. NECK: supple. LUNGS: Breath sounds equal, clear to auscultation bilaterally, HEART: Regular rate and rhythm, S1, S2 without murmur, rub or gallop. ABDOMEN: Soft, nontender, nondistended, normoactive bowel sounds EXTREMITIES: 1+ edema b/l NEUROLOGICAL: Cranial nerves II through XII grossly intact. Normal speech PSYCH: Normal mood, normal affect. Laboratory Results - last 24 hr 03/07/18 03/07/18 06:00 06:00 WBC 7.9 RBC 3.50 L Hgb 9.9 L Hct 30.1 L MCV 85.9 MCH 28.2 MCHC 32.9 RDW 19.6 H Plt Count 211 MPV 8.8 Absolute Neuts (auto) 4.5 Neutrophils % 56.5 Lymphocytes % 25.7 Monocytes % 13.0 H Eosinophils % 3.9 Basophils % 0.9 Nucleated RBC % 0 Sodium 139 Potassium 4.1 Chloride 98 Carbon Dioxide 32 Anion Gap 9 BUN 64 H Creatinine 1.7 H Creat Clearance w eGFR 28.36 Random Glucose 94 Calcium 8.8 Total Bilirubin 0.8 AST 22 ALT 7 L Alkaline Phosphatase 151 H Total Protein 6.3 L Albumin 2.9 L Active Medications Generic Name Dose Route Start Last Admin Trade Name Freq PRN Reason Stop Dose Admin Acetaminophen 650 mg 03/07/18 09:41 03/07/18 10:52 Tylenol - PO 650 mg Q6H PRN Administration HEADACHE Allopurinol 100 mg 02/26/18 10:00 03/07/18 10:52 Zyloprim - PO 100 mg DAILY NOEMÍ Administration Apixaban 2.5 mg 03/05/18 10:45 03/07/18 10:48 Eliquis - PO 2.5 mg BID NOEMÍ Administration Atorvastatin Calcium 20 mg 02/26/18 02:30 03/06/18 22:36 Lipitor - PO 20 mg HS NOEMÍ Administration Cholecalciferol 400 unit 02/26/18 10:00 03/07/18 10:51 Vitamin D3 - PO 400 unit DAILY NOEMÍ Administration Diltiazem HCl 180 mg 03/06/18 11:55 03/07/18 10:48 Cardizem Cd - PO 180 mg DAILY NOEMÍ Administration Furosemide 20 mg 03/06/18 11:11 03/07/18 10:49 Lasix - PO 20 mg DAILY NOEMÍ Administration Ceftriaxone Sodium 1 gm/ 50 mls @ 100 mls/hr 03/04/18 19:15 03/07/18 10:51 Dextrose IVPB 100 mls/hr DAILY NOEMÍ Administration Lactobacillus Acidophilus 1 tab 03/03/18 10:00 03/07/18 10:45 Bacid - PO 1 tab DAILY NOEMÍ Administration Magnesium Oxide 400 mg 02/26/18 10:00 03/07/18 10:49 Mag-Ox - PO 400 mg DAILY NOEMÍ Administration Metoprolol Succinate 100 mg 03/06/18 11:55 03/07/18 10:51 Toprol Xl - PO 100 mg BID NOEMÍ Administration Tetrahydrozoline HCl 1 drop 02/26/18 05:04 Visine - OU BID PRN DRY EYES ASSESSMENT/PLAN: Patient is an 87 y/o female with medical history of HTN, HLD, Afib now on Elequis, presents with weakness and B/L lower extremity erythema and edema with underlying chronic lymphedema. Admitted for cellulitis of B/L lower extremities and weakness. #UTI -symptoms improved -Day 4 Abx: received Ceftriaxone today. -Start Ertapenem due to + cultures. -Culture + for ESBL, Group D strep or Enterococcal #HAILEY -secondary to over-diuresis -cr improving -Hold Losartan & Metolazone. -will likely resume losartan in AM #LE Edema -cont. Lasix 20mg -Metolazone d/c'ed #B/L LE Cellulitis -improved -Ceftriaxone Day 4. Now on Ertapenem. #A-fib -eliquis 2.5 BID -toprol 100mg Bid -cardizem #FEN -no fluids -wnl -sodium diet Visit type - Emergency Visit Emergency Visit: Yes ED Registration Date: 02/25/18 Care time: The patient presented to the Emergency Department on the above date and was hospitalized for further evaluation of their emergent condition. - New Patient This patient is new to me today: Yes Date on this admission: 03/07/18 - Critical Care Critical Care patient: No
--- NOTE | 2018-03-07 12:15 | PN ---
Teaching Attending Note Name of Resident: An Salazar ATTENDING PHYSICIAN STATEMENT I saw and evaluated the patient. I reviewed the resident's note and discussed the case with the resident. I agree with the resident's findings and plan as documented. SUBJECTIVE: no abd pain or dysuria , no fever or chills. has mild YOUNG OBJECTIVE: NAD Cv: RRR Lungs: CATB Ext: 1+ pitting edema and thick skin on legs and feet. ASSESSMENT AND PLAN: 87 y/o lady with h/o HTN, HLP, A fib , PPM , Lymphedema who presneted with worsening LE edema and was found to have celllitis 1- LE cellulites: improved - need 1 more days of Abx for this . on ceftriaxone now 2- LE edema. cont lasix at 20. cont to hold metolazone due to HAILEY and will not resume as outpt. 3- HAILEY: due to excessive diuresis. cont to hold losartan, and metolazone . monitor on lower dose of lasix . kidney function stabilized ,probably can resume losartan in am 4- UTI: day 4 of ceftriaxone . urine cx with lactose fermenting G- baccili and Group D strep . follow final ID nad sensitivity 5- A fib: cont eliquis at 2.5 bid .off ASA. cont toprol, cardizem. off digoxin due to bradycardia 6- HTN: slightly elevated off losartan . might resume tomorrow as renal function stabilized Dc to rehab pending cx. hopefully tomorrow.
[2018-03-07] MEDS: ERTAPENEM SODIUM 0.5 GM in SODIUM CHLORIDE 50 ML IVPB SCH (15:31)
[2018-03-07] MEDS ORDERED: PT OWN MED DRAWER 7, Y5N ONE (22:07)
[2018-03-07] MEDS: ATORVASTATIN CA 20 MG TABLET (FP) PO SCH (22:08)
[2018-03-08 07:52] LABS: HEMOGLOBIN 9.8 GM/dL (10.7-15.3); MCH 28.4 pg (25.7-33.7); MCHC 32.8 g/dl (32.0-36.0); MEAN CELL VOLUME 86.4 fl (80-96); MEAN PLT VOLUME 9.1 fl (7.5-11.1); PLATELET COUNT 215 K/MM3 (134-434); RBC 3.47 M/mm3 (3.60-5.2); RDW 19.6 % (11.6-15.6); WHITE BLOOD COUNT 7.8 K/mm3 (4.0-10.0)
[2018-03-08 08:51] LABS: ALBUMIN 2.9 g/dl (3.4-5.0); ALK PHOS 150 U/L (45-117); ANION GAP 7 MMOL/L (8-16); BILIRUBIN,TOTAL 0.5 mg/dL (0.2-1.0); BLOOD UREA NITROGEN 59 mg/dL (7-18); CALCIUM 8.6 mg/dL (8.5-10.1); CHLORIDE 99 mmol/L (98-107); CO2 32 mmol/L (21-32); CREATININE 1.5 mg/dL (0.55-1.02); GLUCOSE,RANDOM 95 mg/dL (74-106); POTASSIUM 4.2 mmol/L (3.5-5.1); SGOT/AST 24 U/L (15-37); SGPT/ALT 10 U/L (12-78); SODIUM 138 mmol/L (136-145); TOT PROT 6.2 g/dl (6.4-8.2)
[2018-03-08] MEDS ORDERED: PT OWN MED DRAWER 7, Y5N ONE ×3 (10:19→21:38)
[2018-03-08] MEDS: ERTAPENEM SODIUM 0.5 GM in SODIUM CHLORIDE 50 ML IVPB SCH (10:28)
[2018-03-08] MEDS: LACTOBACILLUS ACIDOPHILUS 1 TABLET PO SCH (10:29)
[2018-03-08] MEDS: MAGNESIUM OXIDE 400 MG TABLET (FP) PO SCH (10:29)
[2018-03-08] MEDS: APIXABAN 2.5 MG TABLET PO SCH ×2 (10:29→21:44)
[2018-03-08] MEDS: CHOLECALCIFEROL (VITAMIN D3) 400 UNIT TABLET (FP) PO SCH (10:29)
[2018-03-08] MEDS: FUROSEMIDE 20 MG TABLET (FP) PO SCH (10:29)
[2018-03-08] MEDS: ALLOPURINOL 100 MG TABLET (FP) PO SCH (10:29)
--- NOTE | 2018-03-08 16:27 | PN ---
Progress Note (short form) - Note Progress Note: Subjective: No fever or chills. No abd pain. no pain in legs Objective: Vital Signs: Last Vital Signs Temp Pulse Resp BP Pulse Ox 97.9 F 74 18 145/58 94 L 03/08/18 15:57 03/08/18 15:57 03/08/18 09:43 03/08/18 15:57 03/07/18 21:00 Laboratory Results - last 24 hr 03/08/18 03/08/18 06:45 06:45 WBC 7.8 RBC 3.47 L Hgb 9.8 L Hct 30.0 L MCV 86.4 MCH 28.4 MCHC 32.8 RDW 19.6 H Plt Count 215 MPV 9.1 Sodium 138 Potassium 4.2 Chloride 99 Carbon Dioxide 32 Anion Gap 7 L BUN 59 H Creatinine 1.5 H Creat Clearance w eGFR 32.77 Random Glucose 95 Calcium 8.6 Total Bilirubin 0.5 AST 24 ALT 10 L Alkaline Phosphatase 150 H Total Protein 6.2 L Albumin 2.9 L Physical Exam: NAD Cv: RRR Lungs: CATB Ext: 1+ pitting edema and thick skin on legs and feet. ASSESSMENT AND PLAN: 87 y/o lady with h/o HTN, HLP, A fib , PPM , Lymphedema who presneted with worsening LE edema and was found to have celllitis 1- LE cellulites: improved . 2- LE edema. hold lasix for ma to give mr gold for kidneys to recover . will not resume metolazone 3- HAILEY: due to excessive diuresis. cont to hold losartan,hold lasix in am 4- UTI: with ESBL E coli and E faecalis. cont ertapenem day 2/3 5- A fib: cont eliquis at 2.5 bid .off ASA. cont toprol, cardizem. off digoxin due to bradycardia 6- HTN: slightly elevated off losartan . might resume tomorrow as renal function stabilized Dc to rehab after last dose of Abx tomorrow afternoon Visit type - Emergency Visit Emergency Visit: Yes ED Registration Date: 02/25/18 Care time: The patient presented to the Emergency Department on the above date and was hospitalized for further evaluation of their emergent condition. - New Patient This patient is new to me today: No - Critical Care Critical Care patient: No
[2018-03-08] MEDS: ATORVASTATIN CA 20 MG TABLET (FP) PO SCH (21:44)
[2018-03-09 09:19] LABS: ANION GAP 8 MMOL/L (8-16); BLOOD UREA NITROGEN 61 mg/dL (7-18); CALCIUM 8.7 mg/dL (8.5-10.1); CHLORIDE 101 mmol/L (98-107); CO2 32 mmol/L (21-32); CREATININE 1.5 mg/dL (0.55-1.02); GLUCOSE,RANDOM 90 mg/dL (74-106); POTASSIUM 4.1 mmol/L (3.5-5.1); SODIUM 141 mmol/L (136-145)
[2018-03-09] MEDS ORDERED: PT OWN MED DRAWER 7, Y5N ONE ×2 (10:57→12:41)
[2018-03-09] MEDS: MAGNESIUM OXIDE 400 MG TABLET (FP) PO SCH (10:59)
[2018-03-09] MEDS: APIXABAN 2.5 MG TABLET PO SCH (10:59)
[2018-03-09] MEDS: ALLOPURINOL 100 MG TABLET (FP) PO SCH (10:59)
[2018-03-09] MEDS: CHOLECALCIFEROL (VITAMIN D3) 400 UNIT TABLET (FP) PO SCH (10:59)
[2018-03-09] MEDS: ERTAPENEM SODIUM 0.5 GM in SODIUM CHLORIDE 50 ML IVPB SCH (10:59)
[2018-03-09] MEDS: LACTOBACILLUS ACIDOPHILUS 1 TABLET PO SCH (10:59)
--- NOTE | 2018-03-09 15:37 | PN ---
Teaching Attending Note Name of Resident: Leonardo Bocanegra ATTENDING PHYSICIAN STATEMENT I saw and evaluated the patient. I reviewed the resident's note and discussed the case with the resident. I agree with the resident's findings and plan as documented. SUBJECTIVE: No fever or chills. No abd pain. no dysuria . no SOB OBJECTIVE: NAD Cv: RRR Lungs: CATB Ext: 1+ pitting edema and thick skin on legs and feet. ASSESSMENT AND PLAN: 87 y/o lady with h/o HTN, HLP, A fib , PPM , Lymphedema who presneted with worsening LE edema and was found to have celllitis 1- LE cellulites: resolved 2- LE edema. at dc will resumelower dose of her demadex ( 10 mg instead of 20 ) . daily weight and close f.u with pcp 3- HAILEY: due to excessive diuresis.cont to improve. can resume losartan . blood work in 1 week 4- UTI: with ESBL E coli and E faecalis. ertapenem day 3/3 ,. will treat E faecalis with amoxi x 3 days as it was not treated with ertapenem 5- A fib: cont eliquis at 2.5 bid .off ASA. cont toprol, cardizem. off digoxin due to bradycardia 6- HTN: slightly elevated off losartan . 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 declined for rehab by insurance. will d/w family. if family can't afford to pay for rehab , then will dc home with [facility] . PT note reviewed
[2018-03-09 15:55] VITALS: BP 149/51; PULSE 58; TEMP 98.2
--- NOTE | 2018-03-09 16:10 | PN ---
Physical Exam: SUBJECTIVE: Patient seen and examined OBJECTIVE: Vital Signs Period Temp Pulse Resp BP Sys/Polk Pulse Ox Last 24 Hr 98.2 F-98.7 F 58-71 18-20 130-149/49-58 96-97 GENERAL: The patient is awake, alert, and fully oriented, in no acute distress. HEAD: Normal with no signs of trauma. EYES: PERRL, extraocular movements intact, sclera anicteric, conjunctiva clear. No ptosis. ENT: Ears normal, nares patent, oropharynx clear without exudates, moist mucous membranes. NECK: Trachea midline, full range of motion, supple. LUNGS: Breath sounds equal, clear to auscultation bilaterally, no wheezes, no crackles, no accessory muscle use. HEART: Regular rate and rhythm, S1, S2 without murmur, rub or gallop. ABDOMEN: Soft, nontender, nondistended, normoactive bowel sounds, no guarding, no rebound, no hepatosplenomegaly, no masses. EXTREMITIES: 2+ pulses, warm, well-perfused, no edema. NEUROLOGICAL: Cranial nerves II through XII grossly intact. Normal speech, gait not observed. PSYCH: Normal mood, normal affect. SKIN: Warm, dry, normal turgor, no rashes or lesions noted Laboratory Results - last 24 hr 03/09/18 06:55 Sodium 141 Potassium 4.1 Chloride 101 Carbon Dioxide 32 Anion Gap 8 BUN 61 H Creatinine 1.5 H Creat Clearance w eGFR 32.77 Random Glucose 90 Calcium 8.7 Active Medications Generic Name Dose Route Start Last Admin Trade Name Freq PRN Reason Stop Dose Admin Acetaminophen 650 mg 03/07/18 09:41 03/07/18 10:52 Tylenol - PO 650 mg Q6H PRN Administration HEADACHE Allopurinol 100 mg 02/26/18 10:00 03/09/18 10:59 Zyloprim - PO 100 mg DAILY NOEMÍ Administration Apixaban 2.5 mg 03/05/18 10:45 03/09/18 10:59 Eliquis - PO 2.5 mg BID NOEMÍ Administration Atorvastatin Calcium 20 mg 02/26/18 02:30 03/08/18 21:44 Lipitor - PO 20 mg HS NOEMÍ Administration Cholecalciferol 400 unit 02/26/18 10:00 03/09/18 10:59 Vitamin D3 - PO 400 unit DAILY NOEMÍ Administration Diltiazem HCl 180 mg 03/06/18 11:55 03/09/18 10:59 Cardizem Cd - PO 180 mg DAILY NOEMÍ Administration Ertapenem 0.5 gm/ Sodium 50 mls @ 100 mls/hr 03/07/18 12:45 03/09/18 10:59 Chloride IVPB 100 mls/hr DAILY NOEMÍ Administration Protocol Lactobacillus Acidophilus 1 tab 03/03/18 10:00 03/09/18 10:59 Bacid - PO 1 tab DAILY NOEMÍ Administration Magnesium Oxide 400 mg 02/26/18 10:00 03/09/18 10:59 Mag-Ox - PO 400 mg DAILY NOEMÍ Administration Metoprolol Succinate 100 mg 03/06/18 11:55 03/09/18 10:59 Toprol Xl - PO 100 mg BID NOEMÍ Administration Tetrahydrozoline HCl 1 drop 02/26/18 05:04 03/08/18 21:44 Visine - OU 1 drp BID PRN Administration DRY EYES ASSESSMENT/PLAN: Patient is an 87 y/o female with medical history of HTN, HLD, Afib not on anticoagulation, presents with weakness worse on the left for the three days prior to admission and B/L lower extremity erythema and edema with underlying chronic lymphedema. Admitted for cellulitis of B/L lower extremities and weakness. Doppler of lower extremities was negative for DVT. Cardiology consultation discussed starting the patient on Heparin to advance to Elequis for her Afib anticoagulation. She is discharged with Elequis 2.5mg PO BID. Digoxin was discontinued. Metalazone was also discontinued. Also started IV Lasix 40mg BID, which was tapered down to 20mg QD. ID consult discussed Cefazolin, which was changed to Ceftriaxone. Legs were wrapped in DES bandages ( not too tightly) and applied silver sulfadiazine cream. Her swelling was substantially diminished and erythema improved. She complained of urinary hesitancy and dysuria and was found to have ESBL E. coli and Enterococcus Faecalis. Treated with Ertapenem for three days. She was discharged with Amoixicillin 500mg Q8 for three days. She is discharged on Torsemide 10mg QD, Allopurinol 100mg QD, Lipitor 20mg QD, Diltiazem 400units QD, Losartan 100mg QD , Metoprolol 100mg PID. Eliquis 2.5mg BID, Visine eye drops, magnesium oxide 400mg QD, Vi D3 10mg QD. Discharged to S. To follow up with PCP Dr. Graham, Dr. Michael for cardiology, Dr. Burgess for vascular surgery, Dr. Becky Garrett for podiatry.
--- NOTE | 2018-03-10 18:04 | DS ---
Physical Exam: SUBJECTIVE: Patient seen and examined at bedside this morning. No acute distress. Admits headache today. Admits improvement of leg swelling, and pain of lower extremities. Denies hematuria, dysuria. Denies fevers, chills, chest pain, palpitations, shortness of breath, nausea, vomiting, diarrhea. Denies any bleeding. OBJECTIVE: PHYSICAL EXAM GENERAL: The patient is awake, alert, and fully oriented, in no acute distress. HEAD: Normal with no signs of trauma. EYES: PERRL, extraocular movements intact, sclera anicteric. ENT: Oropharynx clear without exudates, moist mucous membranes. NECK: Supple without lymphedema. LUNGS: Breath sounds equal, clear to auscultation bilaterally, no wheezes, no crackles. HEART: Irregular rate. +S1, S2. Holosystolic murmur auscultated at left upper sternal border without radiation to carotids. ABDOMEN: Soft, nontender, nondistended, normoactive bowel sounds, no guarding, no rebound, no hepatosplenomegaly. 2.5cm midline umbilical hernia, reducible, painless. EXTREMITIES: 2+ radial pulses B/L, 1+ DP pulses B/L. NEUROLOGICAL: Cranial nerves II through XII grossly intact. Normal speech PSYCH: Appropriate mood and affect upon my encounter today. SKIN: B/L legs mildly erythematous. Significantly improved from admission. Left leg 2+ pitting edema, tender. Right leg 1+ pitting edema, also tender. Erythema and swelling in B/L legs diminishing from outlined margins LABS HOSPITAL COURSE: Date of Admission:02/25/18 Date of Discharge: 03/10/18 Patient is an 87 y/o female with medical history of HTN, HLD, Afib not on anticoagulation, presents with weakness worse on the left for the three days prior to admission and B/L lower extremity erythema and edema with underlying chronic lymphedema. Admitted for cellulitis of B/L lower extremities and weakness. Doppler of lower extremities was negative for DVT. Cardiology consultation discussed starting the patient on Heparin to advance to Elequis for her Afib anticoagulation. She is discharged with Elequis 2.5mg PO BID. Digoxin was discontinued. Metalazone was also discontinued. Also started IV Lasix 40mg BID, which was tapered down to 20mg QD. ID consult discussed Cefazolin, which was changed to Ceftriaxone. Legs were wrapped in DES bandages ( not too tightly) and applied silver sulfadiazine cream. Her swelling was substantially diminished and erythema improved. She complained of urinary hesitancy and dysuria and was found to have ESBL E. coli and Enterococcus Faecalis. Treated with Ertapenem for three days. She was discharged with Amoixicillin 500mg Q8 for three days. She is discharged on Torsemide 10mg QD, Allopurinol 100mg QD, Lipitor 20mg QD, Diltiazem 400units QD, Losartan 100mg QD , Metoprolol 100mg PID. Eliquis 2.5mg BID, Visine eye drops, magnesium oxide 400mg QD, Vi D3 10mg QD. Discharged to [facility]. To follow up with PCP Dr. Graham, Dr. Michael for cardiology, Dr. Burgess for vascular surgery, Dr. Becky Garrett for podiatry. Minutes to complete discharge: 35 Discharge Summary Reason For Visit: CELLUTITIS/CHRONIC VENOUS INSSUFFICIENCY Condition: Improved - Instructions Diet, Activity, Other Instructions: You were here because of an infection of your legs and swelling of lower legs which has resolved with antibiotics. You also had a urinary tract infection which has resolved with antibiotics You will need to continue antibiotics (Amoxicillin) for the next three days Please follow up with your primary care physician (Dr. Graham) upon discharge. Follow up with Podiatry (Dr. Pena) in 1 week. Follow up with your vascular doctor (Dr. Burgess) in 1 week. Follow up with your Tilting Saw Operator (Dr. Michael) in 1 week since we started you on a new blood thinner (Eliquis). Please take your medications as directed. Begin taking antibiotic Amoxicillin every 8 hours for the next three days We changed the dose of your water pill Torsemide to 10mg daily. We changed the dose of you blood thinner Eliquis to 2.5mg twice a day We stopped the medication Digoxin. You do not need to take it anymore. Continue home medication Metoprolol Succinate 100mg twice a day Continue home medication Losartan 100mg daily Continue home medication Diltiazem 180mg daily Continue taking Atorvastatin 20mg daily Continue taking Allopurinol 100mg daily Continue taking Magnesium Oxide 400mg daily Continue taking Cholecalcifeol 400 units daily Continue using Visine eye drops 1 drop in each eye twice a day Begin Lactobacillus Acidophilus 1 tablet every day while on antibiotics for the next three days If you develop fevers or chills, please visit your nearest emergency department. Referrals: Dania Graham MD [Staff Physician] - 1 Week Leroy Michael MD [Staff Physician] - 1 Week Bhavin Burgess MD [Staff Physician] - 1 Week Gerry Pena DPM [Staff Physician] - 1 Week Disposition: [facility]/HOME HEALTH CARE - Home Medications Comprehensive Discharge Medication List: Ambulatory Orders Allopurinol [Zyloprim -] 100 mg PO DAILY 02/25/18 Atorvastatin Calcium [Lipitor] 20 mg PO HS 02/25/18 Cholecalciferol (Vitamin D3) [Vitamin D -] 400 unit PO DAILY 02/25/18 Diltiazem HCl [Cartia Xt] 180 mg PO DAILY 02/25/18 Losartan Potassium 100 mg PO DAILY 02/25/18 Magnesium Oxide 400 mg PO DAILY 02/25/18 Metoprolol Succinate [Toprol Xl] 100 mg PO BID 02/25/18 Lactobacillus Acidophilus [Bacid -] 1 tab PO DAILY #30 tab 03/03/18 Tetrahydrozoline HCl [Visine -] 1 drop OU BID PRN drops 03/03/18 Allopurinol [Zyloprim -] 100 mg PO DAILY #30 tablet 03/09/18 Amoxicillin - [Amoxicillin 500mg Capsule -] 500 mg PO Q8H 3 Days #9 capsule 04/16 Apixaban [Eliquis -] 2.5 mg PO BID tablet 03/09/18 Apixaban [Eliquis] 2.5 mg PO BID 30 Days #60 tablet 03/09/18 Atorvastatin Ca [Lipitor] 20 mg PO HS 30 Days #30 tablet 03/09/18 Cholecalciferol (Vitamin D3) [D--Orquidea] 400 unit PO DAILY 30 Days #30 drops 04/16 Diltiazem Cd [Cardizem Cd -] 180 mg PO DAILY #30 cap.cd.24h 03/09/18 Losartan Potassium 100 mg PO DAILY 30 Days #30 tablet 03/09/18 Magnesium Oxide 400 mg PO DAILY 30 Days #30 tablet 03/09/18 Metoprolol Succinate [Toprol Xl] 100 mg PO BID 30 Days #60 tab.er.24h 03/09/18 Torsemide [Demadex -] 10 mg PO DAILY 30 Days #30 tablet 03/09/18 This patient is new to me today: No Emergency Visit: Yes ED Registration Date: 02/25/18 Care time: The patient presented to the Emergency Department on the above date and was hospitalized for further evaluation of their emergent condition. Critical Care patient: No - Discharge Referral Referred to [facility] No
== END 2018-03-09 19:00 | disposition home health service (06) | DRG 603 ==
LOC: JER 17:05 → JERBED 21:20 → J6S 02-26 04:45
PROVIDERS: ADMIT Internal Medicine; ATTEND Internal Medicine
DX: L03.116 Cellulitis of left lower limb (principal); J90 Pleural effusion, not elsewhere classified; N17.9 Acute kidney failure, unspecified; N39.0 Urinary tract infection, site not specified; L03.115 Cellulitis of right lower limb; I48.0 Paroxysmal atrial fibrillation; I48.2 Chronic atrial fibrillation; E87.6 Hypokalemia; T46.5X5A Adverse effect of other antihypertensive drugs, initial encounter; T50.2X5A Adverse effect of carbonic-anhydrase inhibitors, benzothiadiazides and other diuretics, initial encounter; R53.1 Weakness; D64.9 Anemia, unspecified; I10 Essential (primary) hypertension; E78.5 Hyperlipidemia, unspecified; Z87.891 Personal history of nicotine dependence; I89.0 Lymphedema, not elsewhere classified; Z86.73 Personal history of transient ischemic attack (TIA), and cerebral infarction without residual deficits; Z95.0 Presence of cardiac pacemaker; E66.9 Obesity, unspecified; Z68.27 Body mass index [BMI] 27.0-27.9, adult; B35.1 Tinea unguium; I73.9 Peripheral vascular disease, unspecified; L85.3 Xerosis cutis; R74.8 Abnormal levels of other serum enzymes; B96.29 Other Escherichia coli [E. coli] as the cause of diseases classified elsewhere; B95.2 Enterococcus as the cause of diseases classified elsewhere
CPT/HCPCS: 36415; 70450-TC; 71045-TC-FY; 76705-TC; 80048; 80053; 80162; 81003; 81015; 82272; 82550; 82553; 82728; 83540; 83550; 83735; 83880; 84100; 84439; 84443; 84480; 84481; 84484; 85025; 85027; 85610; 85730; 87040; 87086; 87186; 93005; 93010; 93306-TC; 93970-TC; 97116-GP; 97161-GP; 99285-25; J1644

== ENCOUNTER 2018-07-12 11:33 | Inpatient (IN) | payer BC, OTHER ==
--- NOTE | 2018-07-12 12:24 | PDOC ---
History of Present Illness - General Chief Complaint: Injury Stated Complaint: FELL Time Seen by Provider: 07/12/18 11:56 History Source: Patient, Old Records Exam Limitations: No Limitations - History of Present Illness Initial Comments: HPI: 88 y/o female presenting to [facility] ER complaining of pain to left hip after unwitnessed fall at home. Niece present at bedside; well versed on pts PMH. Pt states she was transitioning from portable toilet to standing position with walker when she fell onto her left side. Unable to recall what made her fall. Does not believe she lost consciousness. Was unable to stand up off the floor. Believes she was on the floor for approx. 15 minutes. Niece states family was out of the house for two hours. Denies head or neck pain. Denies bleeding. Endorses progressive exertional SOB over the past several days. H/o of CHF. States she has not been taking her Lasix regularly because she didnt want to run her dryer every day. Pt takes Apixaban for Afib. PCP: Dr. Graham [facility] Hx: - HTN - HLD - Afib on Apixaban - Chronic bilateral lower extremity lymphedema Past History - Past Medical History Allergies/Adverse Reactions: Allergies Allergy/AdvReac Type Severity Reaction Status Date / Time No Known Allergies Allergy Verified 07/12/18 12:16 Home Medications: Ambulatory Orders Cholecalciferol (Vitamin D3) [Vitamin D -] 400 unit PO DAILY 02/25/18 Diltiazem HCl [Cartia Xt] 180 mg PO DAILY 02/25/18 Allopurinol [Zyloprim -] 100 mg PO DAILY #30 tablet 03/09/18 Apixaban [Eliquis -] 2.5 mg PO BID tablet 03/09/18 Apixaban [Eliquis] 2.5 mg PO BID 30 Days #60 tablet 03/09/18 Atorvastatin Ca [Lipitor] 20 mg PO HS 30 Days #30 tablet 03/09/18 Losartan Potassium 100 mg PO DAILY 30 Days #30 tablet 03/09/18 Metoprolol Succinate [Toprol Xl] 100 mg PO BID 30 Days #60 tab.er.24h 03/09/18 Torsemide [Demadex -] 10 mg PO DAILY 30 Days #30 tablet 03/09/18 Magnesium Oxide 400 mg PO BID 07/12/18 Valsartan [Diovan] 320 mg PO DAILY 07/12/18 Cardiac Disorders: Yes (afib) COPD: No GI Disorders: Yes (gi bleed 2* to coumadin) HTN: Yes Hypercholesterolemia: Yes - Surgical History Abdominal Surgery: Yes Cholecystectomy: Yes - Suicide/Smoking/Psychosocial Hx Smoking History: Former smoker Have you smoked in the past 12 months: No Information on smoking cessation initiated: No Hx Alcohol Use: No Drug/Substance Use Hx: No Hx Substance Use Treatment: No Review of Systems - Review of Systems Able to Perform ROS?: Yes Comments:: In addition to that documented in the HPI above, the additional ROS was obtained : Constitutional: Denies fevers or chills Eyes: Denies vision changes ENMT: Denies sore throat CV: Denies chest pain Resp: Progressive exertional SOB over past several days GI: Denies vomiting or diarrhea : Denies painful urination, frequency, urgency, or hematuria MSK: Fall per HPI Skin: Denies new rashes Neuro: Denies new numbness or tingling or weakness or headache Endocrine: Denies polyuria Heme: Denies bleeding or bruising *Physical Exam - Vital Signs Last Vital Signs Temp Pulse Resp BP Pulse Ox 97.5 F L 104 H 20 164/87 97 07/12/18 11:36 07/12/18 11:36 07/12/18 11:36 07/12/18 11:36 07/12/18 11:36 - Physical Exam Comments: Constitutional: Nontoxic elderly female in no acute distress or obvious discomfort. Found semi-fowlers on hospital bed. Alert and oriented x4. Answered all questions appropriately and completely. Speech was non-labored, non- pressured. Head: Normocephalic. No obvious external signs of trauma. No periorbital ecchymosis or Battles sign. Eyes: PERRL. EOMI. Sclerae white. Conjunctiva moist and not injected. Ears: Hearing grossly intact. Nose: No nasal discharge. Throat: Oral cavity and pharynx normal. No inflammation, swelling, exudate, or lesions. Neck: Supple, trachea is midline. Pt able to laterally rotate neck to left and right >45 degrees. No subjective C-spine tenderness or bony deformities. No step off. Cardiovascular: Regular rate and regular rhythm. No murmur, rubs, clicks, or gallops. Peripheral pulses: Radial pulses full. Respiratory: Breathing unlabored but mildly tachypneic. Decreased breath sounds in both bases. No stridor, no wheezing, no rhonchi. Equal chest rise and fall. Gastrointestinal: abdomen is soft, non-tender, non-distended. Midline ventral hernia that reduces spontaneously. Neuro: Alert and oriented. Moving all four extremities spontaneously. Cranial nerves intact. Sensation to all four extremities intact. Upper and lower extremities: proximal and distal strength 5/5. Skin/MSK: Warm and dry. 3+ pitting edema to both lower extremities without weeping or open wound. : No R or L CVA tenderness. Psych: Affect: appropriate. Mood: normal. Moderate Sedation - Procedure Monitoring Vital Signs: Procedure Monitoring Vital Signs Temperature 97.5 F L 07/12/18 11:36 Pulse Rate 104 H 07/12/18 11:36 Respiratory Rate 20 07/12/18 11:36 Blood Pressure 164/87 07/12/18 11:36 O2 Sat by Pulse Oximetry (%) 97 07/12/18 11:36 ED Treatment Course - LABORATORY CBC & Chemistry Diagram: 07/12/18 12:47 07/12/18 12:47 Medical Decision Making - Medical Decision Making *Reviewed vital signs, nursing notes, and prior visit documentation (if available). Case discussed with ED Attending Dr. Davalos 88 y/o female presenting s/p unwitnessed fall at home on Apixaban. Likely mechanical in nature Pain to left hip. Swollen, edematous lower extremities and exertional SOB; worsening for past several days. Reports poor compliance with outpatient diuretic therapy. Will obtain CT of head and c-spine given unwitnessed nature and anticoagulated status. Will obtain CXR for SOB. Will obtain plain film of left hip and pelvis, though low suspicion for fracture or dislocation. EKG revealed a-fib with a ventricular rate of 108 bpm. Consistent with history. BNP elevated, trended upward 500 from last in 01/2018. CXR revealed large right pleural effusion. Troponin not elevated. CK very mildly elevated, significantly higher values in past. Low suspicion for acute rhabdo. CBC revealed mild microcytic anemia. Suspect chronic. CMP unremarkable for significant electrolyte derangement. BUN and Cr slightly elevated, but both have downtrended from last study. Suspect possible CKD. Will defer to outpatient follow up. CT of head and c-spine unremarkable for acute fracture or dislocation. No acute intracranial pathology. Chronic findings without interval changes. Plain film of hip and pelvis of poor technical quality. Possible lesion to greater trochanter. Obtained CT of let hip and pelvis. No acute fracture observed. Subcutaneous edema bilaterally. Suspect secondary to acute CHF exacerbation. Ordered IV Lasix. Will admit for acute CHF exacerbation without hypoxia. Concern for worsening of symptoms if discharged as pt has already exhibited difficulty with outpatient management. 15:53 Telephone consultation with resident Dr. Freeman for admission. Verbally appraised of the pts HPI, ED course, and current plan of management. Will evaluate pt and provide recommendation on admission placement. Requested strict I/Os. 07/12/18 16:40 Pt to be admitted to telemetry for Dr. Costello. *DC/Admit/Observation/Transfer Diagnosis at time of Disposition: Diastolic CHF, acute on chronic - Discharge Dispostion Condition at time of disposition: Stable Decision to Admit order: Yes - Referrals Referrals: Dania Graham MD [Primary Care Provider] - - Patient Instructions - Post Discharge Activity
[2018-07-12 12:54] LABS: EOS % 0.5 % (0-4.5); HEMATOCRIT 34.4 % (32.4-45.2); HEMOGLOBIN 10.6 GM/dL (10.7-15.3); LYMPH % 14.4 % (8-40); MCH 23.9 pg (25.7-33.7); MCHC 30.9 g/dl (32.0-36.0); MEAN CELL VOLUME 77.3 fl (80-96); MEAN PLT VOLUME 8.5 fl (7.5-11.1); MONO % 9.9 % (3.8-10.2); NEUT % 74.2 % (42.8-82.8); PLATELET COUNT 323 K/MM3 (134-434); RBC 4.45 M/mm3 (3.60-5.2); RDW 20.8 % (11.6-15.6); WHITE BLOOD COUNT 8.1 K/mm3 (4.0-10.0)
[2018-07-12 13:18] LABS: ALBUMIN 3.2 g/dl (3.4-5.0); ALK PHOS 225 U/L (45-117); ANION GAP 9 MMOL/L (8-16); BILIRUBIN,TOTAL 1.6 mg/dL (0.2-1); BLOOD UREA NITROGEN 23 mg/dL (7-18); CHLORIDE 109 mmol/L (98-107); CO2 25 mmol/L (21-32); CREATININE 1.1 mg/dL (0.55-1.3); GLUCOSE,RANDOM 102 mg/dL (74-106); POTASSIUM 4.1 mmol/L (3.5-5.1); SGOT/AST 36 U/L (15-37); SGPT/ALT 30 U/L (13-61); SODIUM 142 mmol/L (136-145); TOT PROT 6.7 g/dl (6.4-8.2)
[2018-07-12 13:26] LABS: N-TERMINAL BNP 2407.7 pg/ml (5-450)
[2018-07-12 14:04] LABS: ANISOCYTOSIS 1+
[2018-07-12 14:05] LABS: ACANTHOCYTES 1+; OVALOCYTE 1+
--- NOTE | 2018-07-12 14:38 | PDOC ---
Attending Attestation - HPI HPI: 07/12/18 15:56 The patient is a 88 year old female, with a significant past medical history of hypertension, hyperlipidemia, a-fib, and chronic blt chronic lower extremity lymphedema, who presents to the emergency department s/p unwitnessed fall with left his pain. As per patient, she fell onto her left side while moving from her bedside commode to her walker and was on the floor for approximately 15 the minutes prior to her family returning home and helping her up. As per patients family, she could have been on to floor for approximately 2 hours. Patient notes she has been progressively short of breath over the course of the last few days, prior to her fall. She denies hitting her head/neck or any LOC. She denies recent fevers, chills, headache or dizziness. She denies recent nausea, vomit, diarrhea or constipation. She denies recent dysuria, frequency, urgency or hematuria. She denies recent chest pain. Allergies: NKDA Past surgical history: Cholecystectomy Primary Care Physician: Dr. Graham <Allan Simon - Last Filed: 07/12/18 15:55> - Resident Resident Name: Oumar Sandoval - ED Attending Attestation I have performed the following: I have examined & evaluated the patient, The case was reviewed & discussed with the resident, I agree w/resident's findings & plan, Exceptions are as noted - Physicial Exam PE: GENERAL: Awake, alert, and fully oriented, in no acute distress HEAD: No signs of trauma EYES: PERRLA, EOMI, sclera anicteric, conjunctiva clear ENT: Auricles normal inspection, hearing grossly normal, nares patent, oropharynx clear without exudates. Moist mucosa NECK: Normal ROM, supple, no lymphadenopathy, JVD, or masses LUNGS: Dec air entry, dec breath sounds to lower half of lungs B/L HEART: Regular rate and rhythm, normal S1 and S2, no murmurs, rubs or gallops ABDOMEN: Soft, nontender, normoactive bowel sounds. No guarding, no rebound. No masses EXTREMITIES: 3+ pitting edema to BLE, to upper [place]kinson, with chronic stasis changes to the feet- scaling, erythema, thickened skin. Upper extremities with normal range of motion. No clubbing or cyanosis. No cords, erythema, or tenderness NEUROLOGICAL: Cranial nerves II through XII grossly intact. Normal speech. Motor and sensation intact SKIN: Warm, Dry, normal turgor, no rashes or lesions noted. - Medical Decision Making Pt with significant lower extremity edema, dec lung sounds. Suspect CHF exacerbation. Will image head, c-spine, chest, and pelvis s/p fall. Likely admission. <Noemi Davalos - Last Filed: 07/12/18 16:04> Attestations - Attestations 07/12/18 15:56 Documentation prepared by Allan Simon, acting as medical education manager for Noemi Davalos MD. <Allan Simon - Last Filed: 07/12/18 15:55>
[2018-07-12] MEDS ORDERED: FUROSEMIDE 40 MG TABLET (FP) PO ONE (15:32)
[2018-07-12] MEDS ORDERED: FUROSEMIDE 40 MG/4 ML INJECTABLE VIAL IVPUSH ONE (15:53)
[2018-07-12] MEDS ORDERED: FUROSEMIDE 40 MG/4 ML INJECTABLE VIAL ONE (16:34)
--- NOTE | 2018-07-12 16:48 | HP ---
Admitting History and Physical - Primary Care Physician PCP: Santos - Admission Chief Complaint: SOB. s/p fall History of Present Illness: Pt is an 88 yo F with PMHx of GI bleed, afib (on eliquis), HTN, HLD, venous insuff with chronic lymphedema, OA, CHF (diastolic), back pain presenting from home after a fall but found to be SOB. Pt reported falling while trying to get back on to the walker after using the toilet and landing on her buttock without hitting her head or loss of consciousness. She remained on the floor she reported for a short period of time (about 15mins) while the rest of the family was out for about 2 hours. Pt lives with her brother. She reports SOB that is chronic but has worsened progressively. Pt says she takes a diuretic at home daily (last use was yesterday), with increased passage of urine but feels that the new diuretic is less effective than lasix was for her in past. She has chronic bilateral venous stasis for which she elevates her legs at night and could not verify WOOD, orthopnea or PND. She takes eliquis daily for Afib and follows Dr Cortez as her food aide. 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, Other (h/o bifrontal craniotomies) Cardiovascular: Yes: AFIB, HTN, Hyperlipdemia, Other (non palpable pulses b/l feet) Gastrointestinal: Yes: GI Bleed Musculoskeletal: Yes: Other (tender hypertrophic nails x 10 with subungual debris, +inflammed nails beds, +distal seperation of nail from bed, +xerosis b/ l feet) Rheumatology: Yes: Other (b/l knee pain) Dermatology: Yes: Other ( Other (tender hypertrophic nails x 10 with subungual debris, +inflammed nails beds, +distal seperation of nail from bed, +xerosis b/ l feet)) - Past Surgical History Past Surgical History: Yes: Craniotomy - Smoking History Smoking history: Former smoker Have you smoked in the past 12 months: No - Alcohol/Substance Use Hx Alcohol Use: No Home Medications - Allergies Allergies/Adverse Reactions: Allergies Allergy/AdvReac Type Severity Reaction Status Date / Time No Known Allergies Allergy Verified 07/12/18 12:16 - Home Medications Home Medications: Ambulatory Orders Cholecalciferol (Vitamin D3) [Vitamin D -] 400 unit PO DAILY 02/25/18 Diltiazem HCl [Cartia Xt] 180 mg PO DAILY 02/25/18 Allopurinol [Zyloprim -] 100 mg PO DAILY #30 tablet 03/09/18 Apixaban [Eliquis -] 2.5 mg PO BID tablet 03/09/18 Apixaban [Eliquis] 2.5 mg PO BID 30 Days #60 tablet 03/09/18 Atorvastatin Ca [Lipitor] 20 mg PO HS 30 Days #30 tablet 03/09/18 Losartan Potassium 100 mg PO DAILY 30 Days #30 tablet 03/09/18 Metoprolol Succinate [Toprol Xl] 100 mg PO BID 30 Days #60 tab.er.24h 03/09/18 Torsemide [Demadex -] 10 mg PO DAILY 30 Days #30 tablet 03/09/18 Magnesium Oxide 400 mg PO BID 07/12/18 Valsartan [Diovan] 320 mg PO DAILY 07/12/18 Review of Systems - Review of Systems Constitutional: denies: Chills, Fever Cardiovascular: reports: Edema, Shortness of Breath. denies: Chest Pain, Palpitations Respiratory: reports: Exercise Intolerance, SOB. denies: Cough, Wheezing Gastrointestinal: denies: Abdominal Pain Musculoskeletal: reports: Back Pain Neurological: denies: Change in LOC, Change in Speech, Confusion Physical Examination Vital Signs: Vital Signs Temperature 97.5 F L 07/12/18 11:36 Pulse Rate 104 H 07/12/18 11:36 Respiratory Rate 20 07/12/18 11:36 Blood Pressure 164/87 07/12/18 11:36 O2 Sat by Pulse Oximetry (%) 97 07/12/18 11:36 Constitutional: Yes: Mild Distress, Obese Eyes: Yes: Conjunctiva Clear, EOM Intact. No: Sclera Icterus HENT: Yes: Atraumatic Neck: Yes: Supple Cardiovascular: Yes: Tachycardia, Pulse Irregular, S1, S2 Respiratory: Yes: Diminished, Rales. No: Rhonchi Gastrointestinal: Yes: Abdomen, Obese, Other (Umbilical hernia). No: Tenderness Extremities: Yes: Erythema (mild erythema over dorsum of R foot) Edema: Yes Edema: LLE: 3+, RLE: 3+ Neurological: Yes: Alert, Oriented, Lethargy. No: Aphasia, Dysarthria, Facial Droop ...Motor Strength: RUE, RLE Psychiatric: Yes: Alert, Oriented Labs: CBC, BMP 07/12/18 12:47 07/12/18 12:47 Imaging - Results Chest X-ray: Report Reviewed, Image Reviewed (R pleural effusion) X-ray: Report Reviewed (No fractures) Cat Scan: Pending Assessment/Plan Ambulatory Orders Cholecalciferol (Vitamin D3) [Vitamin D -] 400 unit PO DAILY 02/25/18 Diltiazem HCl [Cartia Xt] 180 mg PO DAILY 02/25/18 Allopurinol [Zyloprim -] 100 mg PO DAILY #30 tablet 03/09/18 Apixaban [Eliquis -] 2.5 mg PO BID tablet 03/09/18 Apixaban [Eliquis] 2.5 mg PO BID 30 Days #60 tablet 03/09/18 Atorvastatin Ca [Lipitor] 20 mg PO HS 30 Days #30 tablet 03/09/18 Losartan Potassium 100 mg PO DAILY 30 Days #30 tablet 03/09/18 Metoprolol Succinate [Toprol Xl] 100 mg PO BID 30 Days #60 tab.er.24h 03/09/18 Torsemide [Demadex -] 10 mg PO DAILY 30 Days #30 tablet 03/09/18 Magnesium Oxide 400 mg PO BID 07/12/18 Valsartan [Diovan] 320 mg PO DAILY 07/12/18 Current Medications Albuterol/Ipratropium (Duoneb -) 1 amp NEB RQID [facility] Allopurinol (Zyloprim -) 100 mg PO DAILY NOEMÍ Apixaban (Eliquis -) 2.5 mg PO BID NOEMÍ Atorvastatin Calcium (Lipitor -) 20 mg PO HS [facility] Cholecalciferol (Vitamin D3 -) 400 unit PO DAILY NOEMÍ Diltiazem HCl (Cardizem Cd -) 180 mg PO DAILY NOEMÍ Furosemide (Lasix Injection -) 40 mg IVPUSH DAILY NOEMÍ Magnesium Oxide (Mag-Ox -) 400 mg PO BID NOEMÍ Metoprolol Succinate (Toprol Xl -) 100 mg PO BID NOEMÍ Valsartan (Diovan -) 320 mg PO DAILY NOEMÍ Assessment: Pt is an 88 yo F with PMHx of GI bleed, afib (on eliquis), HTN, HLD, venous insuff with chronic lymphedema, OA, CHF (diastolic), back pain presenting from home after a fall but found to be SOB. #S/p Fall No LOC, no fractures or ICH Pt with prior hx of back pain and OA Could be mechanical or in setting of increased weakness with CHF exacerbation Trops x1 -0.04 trend CK-225, CKMB- 214, trend (did not remain on ground for long) Avascular necrosis of femur noted- for outpt follow up Physical therapy #SOB secondary to acute exacerbaton of HFPEF Pt said she has been complaint on PO diuretic, and other medications BNP-2407.7 Was in afib at 108 bpm at presentation Iv lasix 40mg stat , then daily, titrate to urine output strict ins and outs Daily weights Salt restriction Water restriction Monitor BNP ECHO Cardiology consult- Follows Dr Cortez Pulnick consult Duonebs, EKG- afib without clear JOJO/STD ABGs #R Pleural effusion significant pleural effusion (mild R pleural effusion in past) Could be in setting of pulmonary congestion however R/O background masses or infiltrates CT chest w/o contrast Also with new transaminitis and elevated bilirubin iv lasix #Transaminitis Could be in setting of pulmonary congestion R/O metastatic lesion with pleural effusion trend CMP Prior Abd US without hepatic masses (isolated elevated alkaline phosphatase in past) Abd US #Microcytic Anemia Noted in past 02/2018- ferritin (37>>75.9), TIBC (345>>242), Iron (52>35) Chronic anemia- appears Stable Increased RDW Iron studies Prior FOBTs negative #afib (on eliquis) Tachycardic to 108bpm Metoprolol 100mg bid valsartan 320 daily Diltiazem 180mg daily Verify meds in am- Pharmacy closed #HTN Metoprolol Valsartan Diltiazem #HLD Mildly elevated CK, trend Monitor CK #Avascular necrosis of head of femur Not on glucocorticoids, no fractures, follow pleural effusion (r/o background malignancy) Cont statins Cont anticoagulation For outpt ortho follow up #venous insuff with chronic lymphedema, No evidence of ulcers, or inflammation Diuresis #Hx of GI bleed Has been stable on Eliquis Monitor CBC #FEN Restrict salt <2g/day, Fluid <1L/day Monitor lytes, replete as needed Sodium controlled diet #PPx On eliquis #Dispo Tele Visit type - Emergency Visit Emergency Visit: Yes Care time: The patient presented to the Emergency Department on the above date and was hospitalized for further evaluation of their emergent condition. - New Patient This patient is new to me today: Yes Date on this admission: 07/12/18 - Critical Care Critical Care patient: No
[2018-07-12 17:03] LABS: URINE APPEARANCE CLEAR; URINE BILIRUBIN NEGATIVE (<2.0 mg/dL); URINE COLOR YELLOW; URINE GLUCOSE (UA) NEGATIVE (NEGATIVE); URINE KETONE NEGATIVE (NEGATIVE); URINE LEUK ESTERASE 2+ (NEGATIVE); URINE NITRITE NEGATIVE (NEGATIVE); URINE PROTEIN 2+ (NEGATIVE); URINE UROBILINOGEN NEGATIVE mg/dL (0.2-1.0)
[2018-07-12 17:13] LABS: EPI CELLS RARE /HPF (FEW); URINE HYALINE CAST 10 /lpf; URINE MUCUS RARE
[2018-07-12] MEDS ORDERED: ALBUTEROL SO4 2.5/IPRATROPIUM 0.5 INH SOL 3 ML VIAL.NEB. NEB ONE ×2 (17:14→20:47)
[2018-07-12] MEDS: ALBUTEROL SO4 2.5/IPRATROPIUM 0.5 INH SOL 3 ML VIAL.NEB. NEB SCH ×4 (17:21→20:51)
--- NOTE | 2018-07-12 17:33 | PN ---
Teaching Attending Note Name of Resident: Lydia Stewart ATTENDING PHYSICIAN STATEMENT I saw and evaluated the patient. I reviewed the resident's note and discussed the case with the resident. I agree with the resident's findings and plan as documented. SUBJECTIVE: OBJECTIVE: ASSESSMENT AND PLAN: fall in home chf pleural effusion anemia copd pneumonia a/p dictated
--- NOTE | 2018-07-12 18:51 | HP ---
DATE OF ADMISSION: 07/12/2018 CHIEF COMPLAINT: Fall in the home and shortness of breath. HISTORY OF PRESENT ILLNESS: This is an 88-year-old female who lives in a home with her 2 brothers. She went to the bathroom and she fell on her back. She is complaining of back pain, came to the ER. She also has been complaining of shortness of breath for the last few days and so she came to the ER. In the ER, she was found to have acute heart failure and she is being admitted to the hospital for observation and also possible further workup. In the home, she was lying on the floor for about 2 hours until her brother came in and he picked her up, brought her to the ER. She has had multiple admissions to the hospital for the same heart failure and COPD. PAST MEDICAL HISTORY: Hypertension, chronic venous insufficiency and legs edema, osteoarthritis, diastolic heart failure, atrial fibrillation. She is taking blood thinner Xarelto. REVIEW OF SYSTEMS: As per HPI above. COURSE IN THE HOSPITAL: In the ER, her EKG showed she had irregular heartbeat at 108 per minute. X-ray of the chest showed pleural effusion on the right side and cardiomegaly. CAT scan of the head and spine was all negative. Her labs are slightly high BUN and creatinine is normal. CK-MB is slightly elevated but normal troponin. Home medications she takes are vitamin D, diltiazem, allopurinol, apixaban, Lipitor, losartan, metoprolol, Demadex, magnesium, and valsartan. There is a little confusion about valsartan and losartan, but she does not know. EXAMINATION: General: She is an elderly woman, lying in bed comfortable, no pain at this time. Vital Signs: Blood pressure 140/80. Respiration is 18. Temperature is afebrile. Heart rate is 104. HEENT: She has no pallor. Neck: Supple, negative JVD. Lungs: Bilateral rales in the bases and also decreased breath sounds on the right side. Abdomen: She is soft, nontender. She has a small umbilical hernia. Extremities: She has chronic redness in her legs but it is not hot, and edema which is +3 on both sides. Neurologic: She is alert and awake and she is nonfocal. There is some facial droop, it looks like, but I do not appreciate any weakness on her. ASSESSMENT AND PLAN: 1. Fall in the home. All the workup is negative for any fracture. Will give her some pain medication and will start her on physical therapy tomorrow. For heart failure and shortness of breath, she is going to start on IV Lasix. Will do the cardiac workup for her, like cardiac enzymes, tomorrow. 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 Cooper. We put a consult for her. Also we will also do therapy for . 2. Elevated liver enzymes. Her bilirubin is 1.6 and in the past she had abdominal ultrasound done in the hospital by order by outpatient services. It was normal, no biliary obstruction. She had a bilirubin of 1.4, which is elevated, and an alkaline phosphatase high and high liver enzymes. So at this time we ordered repeat ultrasound of the abdomen, looking for anything. 3. On the CAT scan, she also had pleural effusion. For pleural effusion, I ordered a CAT scan of the chest on her and we will start her antibiotic, which she has a retrograde infiltrate, a pulmonary consult, and will follow. 4. Her hemoglobin is low, anemia. We looked to old chart, old admission which was in March of last year. Her hemoglobin was lower than this one, so we are going to just watch that one. 5. Her medication which she takes in the home, we actually started those medications, which are vitamin D and diltiazem for atrial fibrillation, and allopurinol for gout, and also Eliquis she takes 2.5 mg twice a day, and Lipitor for high cholesterol, and for blood pressure medication, losartan or valsartan, I am picking losartan 100 mg once a day. In place of torsemide, I am giving her Lasix 40 IV and continue metoprolol 100 twice a day. DEDE SHAHID M.D. [id number]
--- NOTE | 2018-07-12 22:27 | EKG ---
Test Reason : Blood Pressure : / mmHG Vent. Rate : 108 BPM Atrial Rate : 105 BPM P-R Int : 000 ms QRS Dur : 088 ms QT Int : 360 ms P-R-T Axes : 000 121 062 degrees QTc Int : 482 ms UNDETERMINED RHYTHM RIGHT AXIS DEVIATION ABNORMAL ECG WHEN COMPARED WITH ECG OF 25-FEB-2018 17:32, CURRENT UNDETERMINED RHYTHM PRECLUDES RHYTHM COMPARISON, NEEDS REVIEW QRS AXIS SHIFTED RIGHT ST LESS DEPRESSED IN LATERAL LEADS NONSPECIFIC T WAVE ABNORMALITY, IMPROVED IN LATERAL LEADS QT HAS LENGTHENED Confirmed by BOLIVAR HOOD, SHLOMO ([id number]) on 07/12/2018 10:27:40 PM Referred By: Confirmed By:SHLOMO LUTZ MD
[2018-07-12] MEDS: MAGNESIUM OXIDE 400 MG TABLET (FP) PO SCH (23:59)
[2018-07-12] MEDS: ATORVASTATIN CA 20 MG TABLET (FP) PO SCH (23:59)
[2018-07-12] MEDS: APIXABAN 2.5 MG TABLET PO SCH (23:59)
[2018-07-13] MEDS: ALBUTEROL SO4 2.5/IPRATROPIUM 0.5 INH SOL 3 ML VIAL.NEB. NEB SCH ×4 (07:50→20:58)
[2018-07-13 07:52] LABS: BASO % 0.4 % (0-2.0); EOS % 0.1 % (0-4.5); HEMATOCRIT 29.7 % (32.4-45.2); HEMOGLOBIN 9.4 GM/dL (10.7-15.3); MCH 24.2 pg (25.7-33.7); MCHC 31.5 g/dl (32.0-36.0); MEAN CELL VOLUME 76.8 fl (80-96); MEAN PLT VOLUME 8.6 fl (7.5-11.1); MONO % 9.5 % (3.8-10.2); PLATELET COUNT 298 K/MM3 (134-434); RBC 3.87 M/mm3 (3.60-5.2); RDW 20.6 % (11.6-15.6)
[2018-07-13] MEDS: ALLOPURINOL 100 MG TABLET (FP) PO SCH ×2 (08:44→14:47)
[2018-07-13] MEDS: MAGNESIUM OXIDE 400 MG TABLET (FP) PO SCH ×3 (08:44→21:29)
[2018-07-13] MEDS: VALSARTAN 160 MG TABLET (UD) PO SCH ×2 (08:44→14:47)
[2018-07-13] MEDS: APIXABAN 2.5 MG TABLET PO SCH ×2 (08:45→14:46)
[2018-07-13] MEDS: FUROSEMIDE 40 MG/4 ML INJECTABLE VIAL IVPUSH SCH ×3 (08:45→14:46)
[2018-07-13 08:49] LABS: CREATININE 1.2 mg/dL (0.55-1.3)
[2018-07-13 08:50] LABS: CO2 26 mmol/L (21-32)
[2018-07-13 08:51] LABS: ALBUMIN 2.8 g/dl (3.4-5.0)
[2018-07-13] MEDS ORDERED: MAGNESIUM SULF 50% (8.12 MEQ/2 ML-1 GM VIAL) IVPB ONE ×2 (09:24→15:39)
[2018-07-13 09:39] LABS: ALK PHOS 191 U/L (45-117); ANION GAP 10 MMOL/L (8-16); BILIRUBIN,DIRECT 0.8 mg/dL (0.0-0.2); BILIRUBIN,TOTAL 1.8 mg/dL (0.2-1); BLOOD UREA NITROGEN 23 mg/dL (7-18); CALCIUM 8.7 mg/dL (8.5-10.1); CHLORIDE 108 mmol/L (98-107); GLUCOSE,RANDOM 98 mg/dL (74-106); MAGNESIUM 1.7 mg/dL (1.8-2.4); POTASSIUM 3.6 mmol/L (3.5-5.1); SGOT/AST 21 U/L (15-37); SGPT/ALT 25 U/L (13-61); SODIUM 143 mmol/L (136-145); TOT PROT 5.8 g/dl (6.4-8.2)
--- NOTE | 2018-07-13 10:43 | CON.CARD ---
Consult Consult Specialty:: cardio - History of Present Illness Chief Complaint: fall, sob History of Present Illness: 88 F here with mechanical fall (getting off toilet while using walker). no head trauma. also reports increased sob of late. for about 3d she is more breathless at home, marco with routine activity. also incr leg/feet swelling and abd distension vs baseline she says. doesn't monitor weight at home. only rare palpitations when feels nervous. no cp - Past Medical History [employer]: Yes: CVA, Other (h/o bifrontal craniotomies) Cardio/Vascular: Yes: AFIB, HTN, Hyperlipdemia, Other (non palpable pulses b/l feet) Gastrointestinal: Yes: GI Bleed Musculoskeletal: Yes: Other (tender hypertrophic nails x 10 with subungual debris, +inflammed nails beds, +distal seperation of nail from bed, +xerosis b/ l feet) Rheumatology: Yes: Other (b/l knee pain) Dermatology: Yes: Other ( Other (tender hypertrophic nails x 10 with subungual debris, +inflammed nails beds, +distal seperation of nail from bed, +xerosis b/ l feet)) - Past Surgical History Past Surgical History: Yes: Craniotomy - Alcohol/Substance Use Hx Alcohol Use: No - Smoking History Smoking history: Never smoked Have you smoked in the past 12 months: No Home Medications - Allergies Allergies/Adverse Reactions: Allergies Allergy/AdvReac Type Severity Reaction Status Date / Time No Known Allergies Allergy Verified 07/12/18 12:16 - Home Medications Home Medications: Ambulatory Orders Cholecalciferol (Vitamin D3) [Vitamin D -] 400 unit PO DAILY 02/25/18 Diltiazem HCl [Cartia Xt] 180 mg PO DAILY 02/25/18 Allopurinol [Zyloprim -] 100 mg PO DAILY #30 tablet 03/09/18 Apixaban [Eliquis -] 2.5 mg PO BID tablet 03/09/18 Apixaban [Eliquis] 2.5 mg PO BID 30 Days #60 tablet 03/09/18 Atorvastatin Ca [Lipitor] 20 mg PO HS 30 Days #30 tablet 03/09/18 Losartan Potassium 100 mg PO DAILY 30 Days #30 tablet 03/09/18 Metoprolol Succinate [Toprol Xl] 100 mg PO BID 30 Days #60 tab.er.24h 03/09/18 Torsemide [Demadex -] 10 mg PO DAILY 30 Days #30 tablet 03/09/18 Magnesium Oxide 400 mg PO BID 07/12/18 Valsartan [Diovan] 320 mg PO DAILY 07/12/18 Family Disease History - Family Disease History Family History: Denies (no known cmp) Review of Systems - Review of Systems Constitutional: denies: Chills, Fever Eyes: denies: Eye Pain HENT: denies: Nasal Congestion Neck: denies: Stiffness Cardiovascular: reports: Edema Respiratory: denies: Orthopnea, PND Gastrointestinal: denies: Diarrhea, Rectal Bleeding Genitourinary: denies: Burning, Hematuria Musculoskeletal: denies: Muscle Pain Integumentary: denies: Rash Neurological: denies: Numbness, Seizure, Syncope Endocrine: denies: Excessive Sweating Hematology/Lymphatic: denies: Excessive Bleeding Vital Signs: Vital Signs Temperature 98 F 07/13/18 08:38 Pulse Rate 134 H 07/13/18 08:38 Respiratory Rate 24 H 07/13/18 09:00 Blood Pressure 162/90 07/13/18 08:38 O2 Sat by Pulse Oximetry (%) 97 07/13/18 09:00 Constitutional: Yes: Well Nourished, No Distress Eyes: No: Sclera Icterus HENT: No: Nasal Congestion Neck: No: Decreased ROM Respiratory: Yes: Diminished (R lower half). No: Accessory Muscle Use, Rales, Wheezes Gastrointestinal: Yes: Normal Bowel Sounds. No: Distention, Hepatomegaly, Palpable Mass, Tenderness Cardiovascular: Yes: Pulse Irregular JVD: Yes Carotid Bruit: No PMI: Non-Displaced Heart Sounds: Yes: S1, S2. No: Gallop Murmur: No: Systolic Murmur, Diastolic Murmur Musculoskeletal: Yes: Other (No kyphosis) Extremities: No: Cold, Cyanosis Edema: Yes (2+ pretib) Peripheral Pulses: 2+ Left Carotid, 2+ Right Carotid, 2+ Left Doralis Pedis, 2+ Right Dorsalis Pedis Integumentary: No: Jaundice Neurological: Yes: Alert, Oriented (x3) Psychiatric: No: Agitated - Other Data Labs, Other Data: CBC, BMP 07/13/18 05:30 07/13/18 05:30 Troponin, BNP 0107/12/18 07/13/18 12:47 18:30 05:30 Troponin I 0.04 0.05 0.08 H B-Natriuretic Peptide 2407.7 H Troponin, BNP 07/12/18 07/12/18 07/13/18 12:47 18:30 05:30 Troponin I 0.04 0.05 0.08 H B-Natriuretic Peptide 2407.7 H Laboratory Tests 07/12/18 07/12/18 07/12/18 12:47 12:47 18:30 WBC Hgb Plt Count Sodium Potassium Carbon Dioxide BUN Creatinine Creat Clearance w eGFR Hemoglobin A1c % AST ALT Troponin I 0.04 0.05 B-Natriuretic Peptide 2407.7 H Albumin 3.2 L 07/13/18 07/13/18 07/13/18 05:30 05:30 05:30 WBC 9.0 Hgb 9.4 L Plt Count 298 Sodium 143 Potassium 3.6 Carbon Dioxide 26 BUN 23 H Creatinine 1.2 Creat Clearance w eGFR 42.30 Hemoglobin A1c % 6.1 AST 21 ALT 25 Troponin I 0.08 H B-Natriuretic Peptide Albumin Assessment/Plan ECG: afib, PVC. baseline wander artifact. NSTWAs diffusely--unchanged vs prior CT chest: large R effusion, small L. no pulm edema described Echo 02/14: ([facility]): LV not well seen. RV ??. mild (AV not well seen). mod-sev MR and TR. RVSP 40-50. Echo 06/2017: nl lv fn. mod rve. rv sys function moderately reduced. mild MR, mod TR. sev phtn. trivial pericardial effusion. Echo 2016: low-nl EF 50-55% (beat to beat variability). mod RV dilation, borderline depressed RV fxn. 1+ /MR, Mod TR, mod pHTN (avg TR 42 mmHg), Cath 2005: LVEDP 18, EF 60%. pRCA mild, pLAD mild, mLAD 50-60%, pLCx mild, OM1 mild. CT head: R occipital lobe infarct, likely old Carotid sono 2018: rt common carotid with mod plaque 50-69%. moderate plaque on left with borderline stenosis. tele: AF HR 100s-120s acute on chronic diastolic CHF with pHTN/RV failure, large R pleural effusion: - home torsemide dose 10 qd as of 04/16 visit (up to 20-40 qd in past), sees dr hargrove in office - BNP 2400, stable (ranges 8901-2329) - office wt 190 in 04/16, currently 203 lbs. - ++ JVD on exam, with increase in abdomen distension and LE edema at home of late. - large R pleural effusion on CT scan (new vs 02/14 CXR)--? HF etiology? - start IV lasix (40 BID), monitor weight and exam, daily renal fxn trend. - monitor R effusion on CXR--consider tap if not responding to diuretics - suspect Afib HR control may be important in optimizing HF status (though may all be secondary to high filling pressures)--as disc'd - digoxin for RV inotropy previously given, not on recent office med list (not given here) - home meds: metoprolol 100 BID, diltiazem ER 180 qd, losartan 100 qd, torsemide 10 qd - consider add spironolactone as outpt, if cannot tolerate higher doses torsemide Afib - rate controlled with metoprolol and diltiazem during last admit here - dig off as of 04/16 office list (also given for RV inotropy in past)--? toxic levels. defer this med at this time - diltiazem may cause further suppression of RV contractility and worsen right sided HF--pt could consider AVN ablation and PM as an alternate treatment, vs amio--will defer this discussion to outpt setting since it is an elective, long- term issue if she otherwise remains stable from chf standpoint - increase metopr to 150 bid - cont dilitazem for now as doing - previously was off AC due to h/o GI bleed/duodenal ulcer and pt deferred f/u with GI - old infarct noted on CT head last time here--Eliquis 2.5 bid started subsequently elev troponin: - intermediate range not diagnostic of myocardial injury (in absence of clinical picture suspicious), flat trend not c/w ACS. - ECG non-ischemic -con't ASA, hold statin while with ck elevation/borderline rhabdo. CKD: -baseline creat 1.0-1.5 -renal fxn stable here HTN: -BP elevated -observe trend with admin of AVN blockers and ARB today -low threshold to add spironolactone (if labs stable) carotid atherosclerosis, - previously declined further imaging w/u as outpt - con't asa, statin prior tx plan
[2018-07-13] MEDS ORDERED: dilTIAZem HCL 60 MG TABLET (FP) PO ONE (10:45)
[2018-07-13] MEDS ORDERED: METOPROLOL TARTRATE 5 MG/5 ML VIAL IVPUSH PRN (11:45)
--- NOTE | 2018-07-13 11:53 | PN ---
Progress Note (short form) - Note Progress Note: PULMONARY CONSULTATION DICTATED 07/13/18 IMP ACUTE ON CHRONIC CHF DYSPNEA S/P FALL BILATERAL PLEURAL EFFUSIONS R>L AFIB PULMONARY HTN HTN ANEMIA PLAN LASIX O2 DAILY WTS INHALED BRONCHODILATORS F/U CHEST X-RAYS THORACENTESIS AC MONITOR LYTES,H+H DR AJ Problem List - Problems (1) Pulmonary HTN Code(s): I27.20 - PULMONARY HYPERTENSION, UNSPECIFIED (2) Diastolic CHF, acute on chronic Code(s): I50.33 - ACUTE ON CHRONIC DIASTOLIC (CONGESTIVE) HEART FAILURE (3) Acquired lymphedema of leg Code(s): I89.0 - LYMPHEDEMA, NOT ELSEWHERE CLASSIFIED (4) Atrial fibrillation Code(s): I48.91 - UNSPECIFIED ATRIAL FIBRILLATION Qualifiers: Atrial fibrillation type: paroxysmal Qualified Code(s): I48.0 - Paroxysmal atrial fibrillation (5) HTN (hypertension) Code(s): I10 - ESSENTIAL (PRIMARY) HYPERTENSION (6) Hyperlipidemia Code(s): E78.5 - HYPERLIPIDEMIA, UNSPECIFIED (7) Pleural effusion Code(s): J90 - PLEURAL EFFUSION, NOT ELSEWHERE CLASSIFIED (8) Shortness of breath Code(s): R06.02 - SHORTNESS OF BREATH
[2018-07-13] MEDS ORDERED: HEPARIN NA (PORCINE) 5,000 UNITS/ML 1ML VIAL IVPUSH PRN ×2 (12:04)
--- NOTE | 2018-07-13 13:10 | CONS ---
DATE OF CONSULTATION: 07/13/2018 REFERRING PHYSICIAN: Kwaku Costello MD HISTORY: The patient is an 88-year-old white female with extensive past medical history, which includes diastolic congestive heart failure, hypertension, atrial fibrillation, hyperlipidemia, pulmonary hypertension, history of GI bleed admitted to [facility] status post mechanical fall. The patient states she was getting off the toilet and felt a little lightheaded and fell. She denies any loss of consciousness. She denies any chest pain or shortness of breath prior to the episode. The patient was apparently lying on the floor for approximately 2 hours until her family found her in that condition. She presented to the emergency room with the above. Of note is that the patient for the past few days has been having increasing shortness of breath and dyspnea with exertion. She also has a cough, which is nonproductive and states that she has had chills for the past couple of weeks. She denies any fevers, nausea, vomiting, or diaphoresis. She denies any hemoptysis. She is a nonsmoker. There is no history of occupational exposure to chemicals or fumes. PAST MEDICAL HISTORY: Again includes hypertension, diastolic heart failure, hyperlipidemia, atrial fibrillation, pulmonary hypertension, chronic lower extremity lymphedema. REVIEW OF SYSTEMS: Positive dyspnea on exertion. No chest pain, no palpitations. Positive cough, positive chills. No fever, no hemoptysis, no abdominal pain. Positive lower extremity edema. CURRENT MEDICATIONS: Include Diovan, magnesium oxide, Zyloprim, DuoNeb, Toprol, Lopressor, Cardizem, Lipitor, Lasix, and vitamin D3. PHYSICAL EXAMINATION: General: The patient is an elderly white female well developed, awake, alert in no acute respiratory distress. Vital Signs: She is currently afebrile. Blood pressure 105/76, respiratory rate 20, O2 saturation 97% on 2 L nasal cannula. HEENT: Normocephalic and atraumatic. Neck: Supple. Heart: Regular irregular. S1, S2. Chest: Diminished breath sounds on the right 1/2 up and a few scattered bilateral wheezes. Abdomen: Soft. Bowel sounds are positive. Extremities: Bilateral lower extremity edema. LABORATORIES: BUN 23, creatinine 1.2, magnesium 1.7. BMP 2407. WBC 9, hemoglobin 9.4, hematocrit 29.7 with a platelet count of 298,000. Chest CT revealed large right pleural effusion with anterior medial loculation, atelectasis in the right middle and lower lobe. This is more left pleural effusion and mild cardiomegaly. IMPRESSION: 1. Dyspnea secondary to acute on chronic diastolic heart failure. 2. Bilateral pleural effusions right greater than left likely secondary to heart failure. 3. Status post mechanical fall. 4. Pulmonary hypertension. 5. Atrial fibrillation. 6. Hypertension. 7. Anemia. PLAN: Continue IV Lasix. Supplemental O2. Daily weights. Inhaled bronchodilators. Obtain follow up chest x-ray and also thoracentesis when the patient is off Eliquis for 48 hours. Start heparin. Monitor electrolytes, hemoglobin, and hematocrit. SOHAM AJ M.D. KRYSTLE/[id number]
--- NOTE | 2018-07-13 15:38 | PN ---
Teaching Attending Note Name of Resident: Louie Rubio ATTENDING PHYSICIAN STATEMENT I saw and evaluated the patient. I reviewed the resident's note and discussed the case with the resident. I agree with the resident's findings and plan as documented. SUBJECTIVE: Feels okay - no complaints. OBJECTIVE: Afebrile/hemodynamically Stable. Last Vital Signs Temp Pulse Resp BP Pulse Ox 98 F 78 20 120/60 97 07/13/18 14:00 07/13/18 14:00 07/13/18 14:00 07/13/18 14:00 07/13/18 09:00 HEENT - Atraumatic/Normocephalic Heart - S1, S2, irregular Lungs - decreased air entry bibasally Abdomen - Soft, non-tender. Bowel Sounds normal. Extremities - Bilateral LE edema (chronic), no calf tenderness Laboratory Results - last 24 hr 07/12/18 07/12/18 07/13/18 16:50 18:30 05:30 WBC RBC Hgb Hct MCV MCH MCHC RDW Plt Count MPV Absolute Neuts (auto) Neutrophils % Lymphocytes % Monocytes % Eosinophils % Basophils % Nucleated RBC % Sodium Potassium Chloride Carbon Dioxide Anion Gap BUN Creatinine Creat Clearance w eGFR Random Glucose Hemoglobin A1c % 6.1 Calcium Phosphorus Magnesium Ferritin Total Bilirubin Direct Bilirubin AST ALT Alkaline Phosphatase Creatine Kinase 116 Troponin I 0.05 Total Protein Albumin Urine Color Yellow Urine Appearance Clear Urine pH 5.0 Ur Specific [place] 1.016 Urine Protein 2+ H Urine Glucose (UA) Negative Urine Ketones Negative Urine Blood Negative Urine Nitrite Negative Urine Bilirubin Negative Urine Urobilinogen Negative Ur Leukocyte Esterase 2+ H Urine WBC (Auto) 1 Urine RBC (Auto) 1 Ur Epithelial Cells Rare Hyaline Casts 10 Urine Mucus Rare 07/13/18 07/13/18 07/13/18 05:30 05:30 05:30 WBC 9.0 RBC 3.87 Hgb 9.4 L Hct 29.7 L MCV 76.8 L MCH 24.2 L MCHC 31.5 L RDW 20.6 H Plt Count 298 MPV 8.6 Absolute Neuts (auto) 7.0 Neutrophils % 78.0 Lymphocytes % 12.0 Monocytes % 9.5 Eosinophils % 0.1 Basophils % 0.4 Nucleated RBC % 0 Sodium 143 Potassium 3.6 Chloride 108 H Carbon Dioxide 26 Anion Gap 10 BUN 23 H Creatinine 1.2 Creat Clearance w eGFR 42.30 Random Glucose 98 Hemoglobin A1c % Calcium 8.7 Phosphorus 4.0 Magnesium 1.7 L Ferritin 28.6 Cancelled Total Bilirubin 1.8 H Direct Bilirubin 0.8 H AST 21 ALT 25 Alkaline Phosphatase 191 H Creatine Kinase 92 Troponin I 0.08 H Total Protein 5.8 L Albumin 2.8 L Urine Color Urine Appearance Urine pH Ur Specific [place] Urine Protein Urine Glucose (UA) Urine Ketones Urine Blood Urine Nitrite Urine Bilirubin Urine Urobilinogen Ur Leukocyte Esterase Urine WBC (Auto) Urine RBC (Auto) Ur Epithelial Cells Hyaline Casts Urine Mucus 07/13/18 11:00 WBC RBC Hgb Hct MCV MCH MCHC RDW Plt Count MPV Absolute Neuts (auto) Neutrophils % Lymphocytes % Monocytes % Eosinophils % Basophils % Nucleated RBC % Sodium Potassium Chloride Carbon Dioxide Anion Gap BUN Creatinine Creat Clearance w eGFR Random Glucose Hemoglobin A1c % Calcium Phosphorus Magnesium Ferritin Total Bilirubin Direct Bilirubin AST ALT Alkaline Phosphatase Creatine Kinase Troponin I 0.08 H Total Protein Albumin Urine Color Urine Appearance Urine pH Ur Specific [place] Urine Protein Urine Glucose (UA) Urine Ketones Urine Blood Urine Nitrite Urine Bilirubin Urine Urobilinogen Ur Leukocyte Esterase Urine WBC (Auto) Urine RBC (Auto) Ur Epithelial Cells Hyaline Casts Urine Mucus Current Medications Generic Name Dose Route Start Last Admin Trade Name Freq PRN Reason Stop Dose Admin Albuterol/Ipratropium 1 amp 07/12/18 20:00 07/13/18 11:10 Duoneb - NEB 1 amp RQID [facility] Administration Allopurinol 100 mg 07/13/18 10:00 07/13/18 14:47 Zyloprim - PO Not Given DAILY [facility] Atorvastatin Calcium 20 mg 07/12/18 22:00 07/12/18 23:59 Lipitor - PO 20 mg HS NOEMÍ Administration Cholecalciferol 400 unit 07/13/18 10:00 Vitamin D3 - PO DAILY NOEMÍ Diltiazem HCl 180 mg 07/13/18 10:00 07/13/18 14:48 Cardizem Cd - PO Not Given DAILY [facility] Furosemide 40 mg 07/13/18 14:00 07/13/18 14:45 Lasix Injection - IVPUSH 40 mg BIDLASIX NOEMÍ Administration Heparin Sodium (Porcine) 1,000 unit 07/13/18 12:04 Heparin - IVPUSH PRN PRN Heparin Heparin Sodium (Porcine) 5,000 unit 07/13/18 12:04 Heparin - IVPUSH PRN PRN Heparin Heparin Sodium (Porcine) 25, 500 mls @ 20 mls/hr 07/13/18 21:00 000 unit/ Sodium Chloride IV TITR NOEMÍ Protocol 1,000 UNIT/HR Magnesium Oxide 400 mg 07/12/18 22:00 07/13/18 14:47 Mag-Ox - PO Not Given BID [facility] Metoprolol Succinate 150 mg 07/13/18 12:45 07/13/18 14:47 Toprol Xl - PO Not Given BID [facility] Metoprolol Tartrate 5 mg 07/13/18 11:45 Lopressor Injection - IVPUSH Q4H PRN [facility]YCARD[facility] Valsartan 320 mg 07/13/18 10:00 07/13/18 14:47 Diovan - PO Not Given DAILY [facility] ASSESSMENT AND PLAN: 88 year old female with history of Atrial Fibrillation on Eliquis, HTN, HLD, prior GI Bleed, Venous insufficiency with chronic lymphedema, Chronic diastolic CHF, presents after sustaining a fall at home, found to be dyspneic in ED. EKG - Afibr, HR 108 Hip/pelvis CT, Xray- avascular necrosis of L femur, no fracture CT C spine and Head - negative for fracture or acute pathology. 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 BNP-2407.7 CXR- congestive features, cardiomegaly, R pleural effusion CT Chest - Large R pleural effusion with basilar atelectasis, mild thyromegaly. 1. Acute on Chronic Diastolic CHF with significant R pleural effusion. BNP elevated, congestion on CXR, R pleural effusion Continue IV Lasix diuresis. Normally on Torsemide at home. Mild elevation in Troponin flat, unlikely ACS given clinical picture - Cardiology to evaluate. Water restriction, daily weight, I/Os. Echo pending. Will require thoracentesis. 2. Ambulatory Dysfunction s/p Fall Xray Hip/Pelvis/C-spine, Head - no acute fracture. PT eval requested. 3. Transaminitis with hyperbilirubinemia - possibly sec to hepatic congestion. Abdominal US demonstrates heterogenous Liver. For Hepatitis panel and GI evaluation 4. Microcytic Anemia, chronic Ferritin/Iron/TIBC pending. Prior FOBT negative. Will need out-patient GI work-up. 5. Atrial Fibrillation - on Eliquis (will hold for thoracentesis with heparin drip bridging) Continue Metoprolol and Diltiazem. Metoprolol dose increased to 150mg bid. 6. HTN - continue Metoprolol, Valsartan, Diltiazem 7. 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 For ortho outpatient eval. 9 . Venous insufficiency with chronic lymphedema - on lasix diuresis. 10. Thyromegaly on CT Chest. Will request US Thyroid. 11. Hypomagnesemia - will replete. 12. CKD 3 -Stable. 13. 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 Carotid Doppler - moderate sized plaque with hemodynamically signifant stenosis , previously declined intervention. On Apixaban and Statin. DVT Px - Eliquis held for Thoracentesis - Heparin bridging.
--- NOTE | 2018-07-13 16:58 | PN ---
Physical Exam: SUBJECTIVE: Patient seen and examined this AM. She states she has been having some shortness of breath but cannot recall how long. says she is feeling better today. OBJECTIVE: Vital Signs Period Temp Pulse Resp BP Sys/Polk Pulse Ox Last 24 Hr 98 F-98.5 F 78-134 20-24 105-164/60-115 92-97 GENERAL: A&O, no acute distress HEAD: Normocephalic, atraumatic. EYES: PERRL, no scleral icterus EARS, NOSE, THROAT: oropharynx clear without exudates. Moist mucous membranes. NECK: supple without lymphadenopathy LUNGS: crackles throughout, decreased breath sounds HEART: Regular rate and rhythm, normal S1 and S2 without murmur ABDOMEN: Soft, nontender to palpation, normoactive bowel sounds MUSCULOSKELETAL: No bony deformities or tenderness. EXTREMITIES: 2+ pulses, warm, well-perfused. 2+ pitting edema NEUROLOGICAL: Cranial nerves II-XII grossly intact. Normal speech. SKIN: Warm, dry, no rashes or lesions noted Laboratory Results - last 24 hr 07/12/18 07/12/18 07/13/18 16:50 18:30 05:30 WBC RBC Hgb Hct MCV MCH MCHC RDW Plt Count MPV Absolute Neuts (auto) Neutrophils % Lymphocytes % Monocytes % Eosinophils % Basophils % Nucleated RBC % Sodium Potassium Chloride Carbon Dioxide Anion Gap BUN Creatinine Creat Clearance w eGFR Random Glucose Hemoglobin A1c % 6.1 Calcium Phosphorus Magnesium Ferritin Total Bilirubin Direct Bilirubin AST ALT Alkaline Phosphatase Creatine Kinase 116 Troponin I 0.05 Total Protein Albumin Urine Color Yellow Urine Appearance Clear Urine pH 5.0 Ur Specific [place] 1.016 Urine Protein 2+ H Urine Glucose (UA) Negative Urine Ketones Negative Urine Blood Negative Urine Nitrite Negative Urine Bilirubin Negative Urine Urobilinogen Negative Ur Leukocyte Esterase 2+ H Urine WBC (Auto) 1 Urine RBC (Auto) 1 Ur Epithelial Cells Rare Hyaline Casts 10 Urine Mucus Rare 07/13/18 07/13/18 07/13/18 05:30 05:30 05:30 WBC 9.0 RBC 3.87 Hgb 9.4 L Hct 29.7 L MCV 76.8 L MCH 24.2 L MCHC 31.5 L RDW 20.6 H Plt Count 298 MPV 8.6 Absolute Neuts (auto) 7.0 Neutrophils % 78.0 Lymphocytes % 12.0 Monocytes % 9.5 Eosinophils % 0.1 Basophils % 0.4 Nucleated RBC % 0 Sodium 143 Potassium 3.6 Chloride 108 H Carbon Dioxide 26 Anion Gap 10 BUN 23 H Creatinine 1.2 Creat Clearance w eGFR 42.30 Random Glucose 98 Hemoglobin A1c % Calcium 8.7 Phosphorus 4.0 Magnesium 1.7 L Ferritin 28.6 Cancelled Total Bilirubin 1.8 H Direct Bilirubin 0.8 H AST 21 ALT 25 Alkaline Phosphatase 191 H Creatine Kinase 92 Troponin I 0.08 H Total Protein 5.8 L Albumin 2.8 L Urine Color Urine Appearance Urine pH Ur Specific [place] Urine Protein Urine Glucose (UA) Urine Ketones Urine Blood Urine Nitrite Urine Bilirubin Urine Urobilinogen Ur Leukocyte Esterase Urine WBC (Auto) Urine RBC (Auto) Ur Epithelial Cells Hyaline Casts Urine Mucus 07/13/18 11:00 WBC RBC Hgb Hct MCV MCH MCHC RDW Plt Count MPV Absolute Neuts (auto) Neutrophils % Lymphocytes % Monocytes % Eosinophils % Basophils % Nucleated RBC % Sodium Potassium Chloride Carbon Dioxide Anion Gap BUN Creatinine Creat Clearance w eGFR Random Glucose Hemoglobin A1c % Calcium Phosphorus Magnesium Ferritin Total Bilirubin Direct Bilirubin AST ALT Alkaline Phosphatase Creatine Kinase Troponin I 0.08 H Total Protein Albumin Urine Color Urine Appearance Urine pH Ur Specific [place] Urine Protein Urine Glucose (UA) Urine Ketones Urine Blood Urine Nitrite Urine Bilirubin Urine Urobilinogen Ur Leukocyte Esterase Urine WBC (Auto) Urine RBC (Auto) Ur Epithelial Cells Hyaline Casts Urine Mucus Active Medications Generic Name Dose Route Start Last Admin Trade Name Freq PRN Reason Stop Dose Admin Albuterol/Ipratropium 1 amp 07/12/18 20:00 07/13/18 11:10 Duoneb - NEB 1 amp RQID [facility] Administration Allopurinol 100 mg 07/13/18 10:00 07/13/18 14:47 Zyloprim - PO Not Given DAILY [facility] Atorvastatin Calcium 20 mg 07/12/18 22:00 07/12/18 23:59 Lipitor - PO 20 mg HS NOEMÍ Administration Cholecalciferol 400 unit 07/13/18 10:00 Vitamin D3 - PO DAILY [facility] Diltiazem HCl 180 mg 07/13/18 10:00 07/13/18 14:48 Cardizem Cd - PO Not Given DAILY [facility] Furosemide 40 mg 07/13/18 14:00 07/13/18 14:45 Lasix Injection - IVPUSH 40 mg BIDLASIX [facility] Administration Heparin Sodium (Porcine) 1,000 unit 07/13/18 12:04 Heparin - IVPUSH PRN PRN Heparin Heparin Sodium (Porcine) 5,000 unit 07/13/18 12:04 Heparin - IVPUSH PRN PRN Heparin Heparin Sodium (Porcine) 25, 500 mls @ 20 mls/hr 07/13/18 21:00 000 unit/ Sodium Chloride IV TITR NOEMÍ Protocol 1,000 UNIT/HR Magnesium Oxide 400 mg 07/12/18 22:00 07/13/18 14:47 Mag-Ox - PO Not Given BID [facility] Metoprolol Succinate 150 mg 07/13/18 12:45 07/13/18 14:47 Toprol Xl - PO Not Given BID [facility] Metoprolol Tartrate 5 mg 07/13/18 11:45 Lopressor Injection - IVPUSH Q4H PRN TACHYCARDIA Valsartan 320 mg 07/13/18 10:00 07/13/18 14:47 Diovan - PO Not Given DAILY [facility] ASSESSMENT/PLAN: Pt is an 88 yo F with PMHx of GI bleed, afib (on eliquis), HTN, HLD, venous insuff with chronic lymphedema, OA, CHF (diastolic), back pain presenting from home after a fall but found to be SOB. Diastolic CHF with pleural effusions -b/l effusions noted, Large on right, small on left, atelectasis noted -Pulm consult appreciated -Cardiology consult appreciated -Thoracentesis -Pt will need to be off Eliquis for 12 hours prior to starting heparin drip -Will discuss with IR for duration off eliquis prior to Thoracentesis -Per guidelines with low bleeding risk procedure, pt should be off eliquis for 1 day prior to procedure with normal Cr Clearance -Elevated troponin though flat trend, No ischemic changes on EKG Fall -Denies LOC -CT noted without acute fracture or bleed -PT eval A-fib -Cardiology consult appreciated -Increase Toprol XL from 100 to 150 mg PO Daily -Can add cardizem if still elevated > 120 -Continue Cardizem, cardiology consideration appreciated -Lopressor 5 mg PO Q4 HTN -Diovan 320 mg PO Daily -Cardizem 180 mg PO Daily HLD -Lipitor 20 mg PO HS DVT Prophylaxis -Hold eliquis, start Heparin drip as above FEN -Fluids: -Electrolytes: No electrolyte abnormalities, BMP in AM -Nutrition: Disposition Telemetry Visit type - Emergency Visit Emergency Visit: Yes ED Registration Date: 07/12/18 Care time: The patient presented to the Emergency Department on the above date and was hospitalized for further evaluation of their emergent condition. - New Patient This patient is new to me today: Yes Date on this admission: 07/13/18 - Critical Care Critical Care patient: No
[2018-07-13] MEDS: CHOLECALCIFEROL (VITAMIN D3) 400 UNIT TABLET (FP) PO SCH (17:31)
[2018-07-13] MEDS: ATORVASTATIN CA 20 MG TABLET (FP) PO SCH (21:29)
[2018-07-13] MEDS: HEPARIN - 25,000 UNIT in SODIUM CHLORIDE 495 ML IV SCH (22:10)
[2018-07-14 04:16] LABS: SERUM IRON SATURATION 5 % (15-55); TOTAL IRON BINDING CAPACITY 365 ug/dL (250-450); UIBC 347 ug/dL (118-369)
[2018-07-14] MEDS: FUROSEMIDE 40 MG/4 ML INJECTABLE VIAL IVPUSH SCH ×2 (05:53→15:55)
[2018-07-14] MEDS: ALBUTEROL SO4 2.5/IPRATROPIUM 0.5 INH SOL 3 ML VIAL.NEB. NEB SCH ×4 (07:32→20:58)
[2018-07-14 07:50] LABS: HEMOGLOBIN 8.9 GM/dL (10.7-15.3); MCH 24.5 pg (25.7-33.7); MCHC 31.8 g/dl (32.0-36.0); MEAN CELL VOLUME 76.8 fl (80-96); MEAN PLT VOLUME 8.7 fl (7.5-11.1); PLATELET COUNT 263 K/MM3 (134-434); RBC 3.65 M/mm3 (3.60-5.2); RDW 21.1 % (11.6-15.6); WHITE BLOOD COUNT 6.8 K/mm3 (4.0-10.0)
[2018-07-14 09:10] LABS: ANION GAP 8 MMOL/L (8-16); BLOOD UREA NITROGEN 24 mg/dL (7-18); CALCIUM 8.7 mg/dL (8.5-10.1); CHLORIDE 107 mmol/L (98-107); CO2 28 mmol/L (21-32); CREATININE 1.2 mg/dL (0.55-1.3); GLUCOSE,RANDOM 80 mg/dL (74-106); MAGNESIUM 2.1 mg/dL (1.8-2.4); POTASSIUM 3.7 mmol/L (3.5-5.1); SODIUM 143 mmol/L (136-145)
[2018-07-14] MEDS ORDERED: PT OWN MED DRAWER 7, Y5N ONE (09:46)
--- NOTE | 2018-07-14 09:58 | PN ---
Progress Note (short form) - Note Progress Note: History of Present Illness: sob improving. no palps, dizziness, lightheadedness, cp Current Medications Albuterol/Ipratropium (Duoneb -) 1 amp NEB RQID [facility] Last Admin: 07/14/18 07:32 Dose: 1 amp Allopurinol (Zyloprim -) 100 mg PO DAILY [facility] Last Admin: 07/13/18 14:47 Dose: Not Given Atorvastatin Calcium (Lipitor -) 20 mg PO HS [facility] Last Admin: 07/13/18 21:29 Dose: 20 mg Cholecalciferol (Vitamin D3 -) 400 unit PO DAILY [facility] Last Admin: 07/13/18 17:31 Dose: 400 unit Diltiazem HCl (Cardizem Cd -) 180 mg PO DAILY [facility] Last Admin: 07/13/18 14:48 Dose: Not Given Ferrous Gluconate (Fergon -) 324 mg PO DAILY [facility] Furosemide (Lasix Injection -) 40 mg IVPUSH BIDLASIX [facility] Last Admin: 07/14/18 05:53 Dose: 40 mg Heparin Sodium (Porcine) (Heparin -) 1,000 unit IVPUSH PRN PRN PRN Reason: Heparin Heparin Sodium (Porcine) (Heparin -) 5,000 unit IVPUSH PRN PRN PRN Reason: Heparin Last Admin: 07/14/18 04:46 Dose: 5,000 unit Heparin Sodium (Porcine) 25, (000 unit/ Sodium Chloride) 500 mls @ 20 mls/hr IV TITR [facility]; Protocol Last Titration: 07/14/18 04:45 Dose: 1,150 unit/hr, 23 mls/hr Magnesium Oxide (Mag-Ox -) 400 mg PO BID [facility] Last Admin: 07/13/18 21:29 Dose: 400 mg Metoprolol Succinate (Toprol Xl -) 150 mg PO BID [facility] Last Admin: 07/13/18 21:30 Dose: 150 mg Metoprolol Tartrate (Lopressor Injection -) 5 mg IVPUSH Q4H PRN PRN Reason: TACHYCARDIA Valsartan (Diovan -) 320 mg PO DAILY [facility] Last Admin: 07/13/18 14:47 Dose: Not Given Vital Signs: Vital Signs Period Temp Pulse Resp BP Sys/Polk Pulse Ox Last 24 Hr 98 F-98.4 F 72-106 20-20 105-145/60-76 97 Constitutional: Yes: Well Nourished, No Distress Eyes: No: Sclera Icterus HENT: No: Nasal Congestion Neck: No: Decreased ROM Respiratory: Yes: Diminished (R lower half). No: Accessory Muscle Use, Rales, Wheezes Gastrointestinal: Yes: Normal Bowel Sounds. No: Distention, Hepatomegaly, Palpable Mass, Tenderness Cardiovascular: Yes: Pulse Irregular JVD: Yes Carotid Bruit: No PMI: Non-Displaced Heart Sounds: Yes: S1, S2. No: Gallop Murmur: No: Systolic Murmur, Diastolic Murmur Musculoskeletal: Yes: Other (No kyphosis) Extremities: No: Cold, Cyanosis Edema: Yes (2+ pretib) Peripheral Pulses: 2+ Left Carotid, 2+ Right Carotid, 2+ Left Doralis Pedis, 2+ Right Dorsalis Pedis Integumentary: No: Jaundice Neurological: Yes: Alert, Oriented (x3) Psychiatric: No: Agitated Assessment/Plan ECG: afib, PVC. baseline wander artifact. NSTWAs diffusely--unchanged vs prior CT chest: large R effusion, small L. no pulm edema described Echo 02/14: ([facility]): LV not well seen. RV ??. mild (AV not well seen). mod-sev MR and TR. RVSP 40-50. Echo 06/2017: nl lv fn. mod rve. rv sys function moderately reduced. mild MR, mod TR. sev phtn. trivial pericardial effusion. Echo 2016: low-nl EF 50-55% (beat to beat variability). mod RV dilation, borderline depressed RV fxn. 1+ /MR, Mod TR, mod pHTN (avg TR 42 mmHg), Cath 2006: LVEDP 18, EF 60%. pRCA mild, pLAD mild, mLAD 50-60%, pLCx mild, OM1 mild. CT head: R occipital lobe infarct, likely old Carotid sono 2018: rt common carotid with mod plaque 50-69%. moderate plaque on left with borderline stenosis. tele: AF HR rate controlled acute on chronic diastolic CHF with pHTN/RV failure, large R pleural effusion: - home torsemide dose 10 qd as of 04/16 visit (up to 20-40 qd in past), sees dr hargrove in office - BNP 2400, stable (ranges [id number]) - office wt 190 in 04/16, currently 203 lbs. - ++ JVD on exam, with increase in abdomen distension and LE edema at home of late. - large R pleural effusion on CT scan (new vs 02/14 CXR)--? HF etiology? - suspect Afib HR control may be important in optimizing HF status (though may all be secondary to high filling pressures)--as disc'd - digoxin for RV inotropy previously given, not on recent office med list (not given here) - home meds: metoprolol 100 BID, diltiazem ER 180 qd, losartan 100 qd, torsemide 10 qd - consider add spironolactone as outpt, if cannot tolerate higher doses torsemide - 07/14 Cr stable, sob improving, weight down on lasix 40 mg IV BID, continue - trend Cr, lytes, daily standing weight - planned thoracentesis for R pleural effusion Afib - rate controlled with metoprolol and diltiazem during last admit here - dig off as of 04/16 office list (also given for RV inotropy in past)--? toxic levels. defer this med at this time - diltiazem may cause further suppression of RV contractility and worsen right sided HF--pt could consider AVN ablation and PM as an alternate treatment, vs amio--will defer this discussion to outpt setting since it is an elective, long- term issue if she otherwise remains stable from chf standpoint - increase metopr to 150 bid - cont dilitazem for now as doing - previously was off AC due to h/o GI bleed/duodenal ulcer and pt deferred f/u with GI - old infarct noted on CT head last time here--Eliquis 2.5 bid started subsequently - holding eliquis now for thoracentesis, on heparin gtt elev troponin: - intermediate range not diagnostic of myocardial injury (in absence of clinical picture suspicious), flat trend not c/w ACS. - ECG non-ischemic -con't ASA, hold statin while with ck elevation/borderline rhabdo. CKD: -baseline creat 1.0-1.5 -renal fxn stable here HTN: -BP elevated -observe trend with admin of AVN blockers and ARB today -low threshold to add spironolactone (if labs stable) carotid atherosclerosis, - previously declined further imaging w/u as outpt - con't asa, statin prior tx plan
[2018-07-14 10:00] LABS: INR 1.64 (0.83-1.09); PROTHROMBIN TIME (PATIENT) 19.5 SEC (9.7-13.0)
[2018-07-14] MEDS: VALSARTAN 160 MG TABLET (UD) PO SCH (10:43)
[2018-07-14] MEDS: ALLOPURINOL 100 MG TABLET (FP) PO SCH (10:44)
[2018-07-14] MEDS: MAGNESIUM OXIDE 400 MG TABLET (FP) PO SCH ×2 (10:44→21:59)
[2018-07-14] MEDS: FERROUS GLUCONATE 324 MG TAB (FP) PO SCH (10:44)
[2018-07-14] MEDS: CHOLECALCIFEROL (VITAMIN D3) 400 UNIT TABLET (FP) PO SCH (10:45)
[2018-07-14] MEDS ORDERED: ARTIFICIAL TEARS (POLYVINYL ALCOHOL) OPTH DROPS OU PRN (11:27)
--- NOTE | 2018-07-14 11:56 | PN ---
Physical Exam: SUBJECTIVE: Patient seen and examined this AM. She states shes feeling better today than yesterday. Discussed thoracentesis with patient and she is agreeable. OBJECTIVE: Vital Signs Period Temp Pulse Resp BP Sys/Polk Pulse Ox Last 24 Hr 98 F-98.4 F 72-98 20-20 120-145/60-73 97-97 GENERAL: A&O, no acute distress HEAD: Normocephalic, atraumatic. EYES: PERRL, no scleral icterus EARS, NOSE, THROAT: oropharynx clear without exudates. Moist mucous membranes. NECK: supple without lymphadenopathy LUNGS: crackles throughout, decreased breath sounds in the right base HEART: Irregularly irregular, normal S1 and S2 without murmur ABDOMEN: Soft, nontender to palpation, normoactive bowel sounds MUSCULOSKELETAL: No bony deformities or tenderness. EXTREMITIES: warm, well-perfused. 2+ pitting edema SKIN: Warm, dry, no rashes or lesions noted Laboratory Results - last 24 hr 07/13/18 07/13/18 07/13/18 05:30 05:30 11:00 WBC RBC Hgb Hct MCV MCH MCHC RDW Plt Count MPV PT with INR INR PTT (Actin FS) Sodium Potassium Chloride Carbon Dioxide Anion Gap BUN Creatinine Creat Clearance w eGFR Random Glucose Calcium Phosphorus Magnesium Iron 18 L 18 L TIBC 365 Iron Saturation 5 L Troponin I 0.08 H 07/14/18 07/14/18 07/14/18 03:40 03:40 05:30 WBC RBC Hgb Hct MCV MCH MCHC RDW Plt Count MPV PT with INR 19.50 H INR 1.64 H PTT (Actin FS) 38.0 H Sodium 143 Potassium 3.7 Chloride 107 Carbon Dioxide 28 Anion Gap 8 BUN 24 H Creatinine 1.2 Creat Clearance w eGFR 42.30 Random Glucose 80 Calcium 8.7 Phosphorus 4.0 Magnesium 2.1 Iron TIBC Iron Saturation Troponin I 07/14/18 05:30 WBC 6.8 RBC 3.65 Hgb 8.9 L Hct 28.0 L MCV 76.8 L MCH 24.5 L MCHC 31.8 L RDW 21.1 H Plt Count 263 MPV 8.7 PT with INR INR PTT (Actin FS) Sodium Potassium Chloride Carbon Dioxide Anion Gap BUN Creatinine Creat Clearance w eGFR Random Glucose Calcium Phosphorus Magnesium Iron TIBC Iron Saturation Troponin I Active Medications Generic Name Dose Route Start Last Admin Trade Name Freq PRN Reason Stop Dose Admin Albuterol/Ipratropium 1 amp 07/12/18 20:00 07/14/18 11:28 Duoneb - NEB 1 amp RQID NOEMÍ Administration Allopurinol 100 mg 07/13/18 10:00 07/14/18 10:44 Zyloprim - PO 100 mg DAILY NOEMÍ Administration Artificial Tears 1 drop 07/14/18 11:27 Artificial Tears OU BID PRN FOR ITCHING Atorvastatin Calcium 20 mg 07/12/18 22:00 07/13/18 21:29 Lipitor - PO 20 mg HS NOEMÍ Administration Cholecalciferol 400 unit 07/13/18 10:00 07/14/18 10:45 Vitamin D3 - PO 400 unit DAILY [facility] Administration Diltiazem HCl 180 mg 07/13/18 10:00 07/14/18 10:44 Cardizem Cd - PO 180 mg DAILY NOEMÍ Administration Ferrous Gluconate 324 mg 07/14/18 10:00 07/14/18 10:44 Fergon - PO 324 mg DAILY NOEMÍ Administration Furosemide 40 mg 07/13/18 14:00 07/14/18 05:53 Lasix Injection - IVPUSH 40 mg BIDLASIX NOEMÍ Administration Heparin Sodium (Porcine) 1,000 unit 07/13/18 12:04 Heparin - IVPUSH PRN PRN Heparin Heparin Sodium (Porcine) 5,000 unit 07/13/18 12:04 07/14/18 04:46 Heparin - IVPUSH 5,000 unit PRN PRN Administration Heparin Heparin Sodium (Porcine) 25, 500 mls @ 20 mls/hr 07/13/18 21:00 07/14/18 04: 45 000 unit/ Sodium Chloride IV 1,150 unit/hr TITR NOEMÍ 23 mls/hr Titration Protocol 1,000 UNIT/HR Magnesium Oxide 400 mg 07/12/18 22:00 07/14/18 10:44 Mag-Ox - PO 400 mg BID NOEMÍ Administration Metoprolol Succinate 150 mg 07/13/18 12:45 07/14/18 10:43 Toprol Xl - PO 150 mg BID NOEMÍ Administration Metoprolol Tartrate 5 mg 07/13/18 11:45 Lopressor Injection - IVPUSH Q4H PRN TACHYCARDIA Valsartan 320 mg 07/13/18 10:00 07/14/18 10:43 Diovan - PO 320 mg DAILY NOEMÍ Administration ASSESSMENT/PLAN: Pt is an 88 yo F with PMHx of GI bleed, afib (on eliquis), HTN, HLD, venous insuff with chronic lymphedema, OA, CHF (diastolic), back pain presenting from home after a fall but found to be SOB. Diastolic CHF with pleural effusions -b/l effusions noted, Large on right, small on left, atelectasis noted -Pulm consult appreciated -Cardiology consult appreciated -Thoracentesis pending IR -Per guidelines with low bleeding risk procedure, pt should be off eliquis for 1 day prior to procedure with normal Cr Clearance -Elevated troponin though flat trend, No ischemic changes on EKG Transaminitis -Improving -RUQ US with heterogeneous liver -GI consult Fall -Denies LOC -CT noted without acute fracture or bleed -PT eval A-fib -Cardiology consult appreciated -Increase Toprol XL from 100 to 150 mg PO Daily -Can add cardizem if still elevated > 120 -Continue Cardizem, cardiology consideration appreciated -Lopressor 5 mg PO Q4 HTN -Diovan 320 mg PO Daily -Cardizem 180 mg PO Daily HLD -Lipitor 20 mg PO HS DVT Prophylaxis -Hold eliquis, Heparin drip as above FEN -Fluids: none -Electrolytes: No electrolyte abnormalities, BMP in AM -Nutrition: Na controlled diet Disposition Telemetry Visit type - Emergency Visit Emergency Visit: Yes ED Registration Date: 07/12/18 Care time: The patient presented to the Emergency Department on the above date and was hospitalized for further evaluation of their emergent condition. - New Patient This patient is new to me today: No - Critical Care Critical Care patient: No
[2018-07-14 12:09] LABS: LDH 348 U/L (84-246)
--- NOTE | 2018-07-14 12:09 | PN ---
Teaching Attending Note Name of Resident: Louie Rubio ATTENDING PHYSICIAN STATEMENT I saw and evaluated the patient. I reviewed the resident's note and discussed the case with the resident. I agree with the resident's findings and plan as documented. SUBJECTIVE: Less SOB. No fever/chills. OBJECTIVE: Afebrile/hemodynamically Stable. Last Vital Signs Temp Pulse Resp BP Pulse Ox 98 F 98 H 20 136/66 97 07/14/18 10:00 07/14/18 10:00 07/14/18 10:00 07/14/18 10:00 07/14/18 09:00 HEENT - Atraumatic/Normocephalic Heart - S1, S2, soft SM Lungs - decreased air entry bibasally R>L Abdomen - Soft, non-tender. Bowel Sounds normal. Extremities - Bilateral LE edema (chronic with skin changes), no calf tenderness Laboratory Results - last 24 hr 07/13/18 07/13/18 07/14/18 05:30 05:30 03:40 WBC RBC Hgb Hct MCV MCH MCHC RDW Plt Count MPV PT with INR 19.50 H INR 1.64 H PTT (Actin FS) Sodium Potassium Chloride Carbon Dioxide Anion Gap BUN Creatinine Creat Clearance w eGFR Random Glucose Calcium Phosphorus Magnesium Iron 18 L 18 L TIBC 365 Iron Saturation 5 L 07/14/18 07/14/18 07/14/18 03:40 05:30 05:30 WBC 6.8 RBC 3.65 Hgb 8.9 L Hct 28.0 L MCV 76.8 L MCH 24.5 L MCHC 31.8 L RDW 21.1 H Plt Count 263 MPV 8.7 PT with INR INR PTT (Actin FS) 38.0 H Sodium 143 Potassium 3.7 Chloride 107 Carbon Dioxide 28 Anion Gap 8 BUN 24 H Creatinine 1.2 Creat Clearance w eGFR 42.30 Random Glucose 80 Calcium 8.7 Phosphorus 4.0 Magnesium 2.1 Iron TIBC Iron Saturation 07/14/18 11:05 WBC RBC Hgb Hct MCV MCH MCHC RDW Plt Count MPV PT with INR INR PTT (Actin FS) 58.5 H Sodium Potassium Chloride Carbon Dioxide Anion Gap BUN Creatinine Creat Clearance w eGFR Random Glucose Calcium Phosphorus Magnesium Iron TIBC Iron Saturation Current Medications Generic Name Dose Route Start Last Admin Trade Name Freq PRN Reason Stop Dose Admin Albuterol/Ipratropium 1 amp 07/12/18 20:00 07/14/18 11:28 Duoneb - NEB 1 amp RQID NOEMÍ Administration Allopurinol 100 mg 07/13/18 10:00 07/14/18 10:44 Zyloprim - PO 100 mg DAILY NOEMÍ Administration Artificial Tears 1 drop 07/14/18 11:27 Artificial Tears OU BID PRN FOR ITCHING Atorvastatin Calcium 20 mg 07/12/18 22:00 07/13/18 21:29 Lipitor - PO 20 mg HS NOEMÍ Administration Cholecalciferol 400 unit 07/13/18 10:00 07/14/18 10:45 Vitamin D3 - PO 400 unit DAILY NOEMÍ Administration Diltiazem HCl 180 mg 07/13/18 10:00 07/14/18 10:44 Cardizem Cd - PO 180 mg DAILY NOEMÍ Administration Ferrous Gluconate 324 mg 07/14/18 10:00 07/14/18 10:44 Fergon - PO 324 mg DAILY NOEMÍ Administration Furosemide 40 mg 07/13/18 14:00 07/14/18 05:53 Lasix Injection - IVPUSH 40 mg BIDLASIX NOEMÍ Administration Heparin Sodium (Porcine) 1,000 unit 07/13/18 12:04 Heparin - IVPUSH PRN PRN Heparin Heparin Sodium (Porcine) 5,000 unit 07/13/18 12:04 07/14/18 04:46 Heparin - IVPUSH 5,000 unit PRN PRN Administration Heparin Heparin Sodium (Porcine) 25, 500 mls @ 20 mls/hr 07/13/18 21:00 07/14/18 04: 45 000 unit/ Sodium Chloride IV 1,150 unit/hr TITR NOEMÍ 23 mls/hr Titration Protocol 1,000 UNIT/HR Magnesium Oxide 400 mg 07/12/18 22:00 07/14/18 10:44 Mag-Ox - PO 400 mg BID NOEMÍ Administration Metoprolol Succinate 150 mg 07/13/18 12:45 07/14/18 10:43 Toprol Xl - PO 150 mg BID NOEMÍ Administration Metoprolol Tartrate 5 mg 07/13/18 11:45 Lopressor Injection - IVPUSH Q4H PRN TACHYCARDIA Valsartan 320 mg 07/13/18 10:00 07/14/18 10:43 Diovan - PO 320 mg DAILY NOEMÍ Administration ASSESSMENT AND PLAN: 88 year old female with history of Atrial Fibrillation on Eliquis, HTN, HLD, prior GI Bleed, Venous insufficiency with chronic lymphedema, Chronic diastolic CHF, presents after sustaining a fall at home, found to be dyspneic in ED. EKG - Afibr, HR 108 Hip/pelvis CT, Xray- avascular necrosis of L femur, no fracture CT C spine and Head - negative for fracture or acute pathology. 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 BNP-2407.7 CXR- congestive features, cardiomegaly, R pleural effusion CT Chest - Large R pleural effusion with basilar atelectasis, mild thyromegaly. 1. Acute on Chronic Diastolic CHF with significant R pleural effusion. BNP elevated, congestion on CXR, R pleural effusion Continue IV Lasix diuresis. Normally on Torsemide at home. Mild elevation in Troponin - flat, unlikely ACS given clinical picture - Cardiology following. Water restriction, daily weight, I/Os. Echo pending. Thoracentesis scheduled 07/14. 2. Ambulatory Dysfunction s/p Fall Xray Hip/Pelvis/C-spine, Head - no acute fracture. PT eval requested. 3. Transaminitis with hyperbilirubinemia - possibly sec to hepatic congestion. Abdominal US demonstrates heterogenous Liver. For Hepatitis panel and GI evaluation 4. Microcytic Anemia, chronic Ferritin/Iron/TIBC pending. Prior FOBT negative. Will need out-patient GI work-up. 5. Atrial Fibrillation - normally on Eliquis (held for thoracentesis with heparin drip bridging) Continue Metoprolol and Diltiazem. Metoprolol dose increased to 150mg bid. 6. HTN - continue Metoprolol, Valsartan, Diltiazem 7. 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 For ortho outpatient eval. 9 . Venous insufficiency with chronic lymphedema - on lasix diuresis. 10. Thyromegaly on CT Chest. US Thyroid requested. 11. Hypomagnesemia - repleted 12. CKD 3 -Stable. 13. 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 Carotid Doppler - moderate sized plaque with hemodynamically significant stenosis, previously declined intervention. On Apixaban and Statin. 14. History of Gout - continue Allopurinol. DVT Px - Eliquis held for Thoracentesis with Heparin bridging.
--- NOTE | 2018-07-14 12:34 | PN ---
Progress Note, Physician History of Present Illness: PULMONARY ALERT,FEELING BETTER,LESS DYSPNEIC - Current Medication List Current Medications: Active Medications Albuterol/Ipratropium (Duoneb -) 1 amp NEB RQID [facility] Last Admin: 07/14/18 11:28 Dose: 1 amp Allopurinol (Zyloprim -) 100 mg PO DAILY [facility] Last Admin: 07/14/18 10:44 Dose: 100 mg Artificial Tears (Artificial Tears) 1 drop OU BID PRN PRN Reason: FOR ITCHING Atorvastatin Calcium (Lipitor -) 20 mg PO HS [facility] Last Admin: 07/13/18 21:29 Dose: 20 mg Cholecalciferol (Vitamin D3 -) 400 unit PO DAILY [facility] Last Admin: 07/14/18 10:45 Dose: 400 unit Diltiazem HCl (Cardizem Cd -) 180 mg PO DAILY [facility] Last Admin: 07/14/18 10:44 Dose: 180 mg Ferrous Gluconate (Fergon -) 324 mg PO DAILY [facility] Last Admin: 07/14/18 10:44 Dose: 324 mg Furosemide (Lasix Injection -) 40 mg IVPUSH BIDLASIX [facility] Last Admin: 07/14/18 05:53 Dose: 40 mg Heparin Sodium (Porcine) (Heparin -) 1,000 unit IVPUSH PRN PRN PRN Reason: Heparin Heparin Sodium (Porcine) (Heparin -) 5,000 unit IVPUSH PRN PRN PRN Reason: Heparin Last Admin: 07/14/18 04:46 Dose: 5,000 unit Heparin Sodium (Porcine) 25, (000 unit/ Sodium Chloride) 500 mls @ 20 mls/hr IV TITR [facility]; Protocol Last Titration: 07/14/18 04:45 Dose: 1,150 unit/hr, 23 mls/hr Magnesium Oxide (Mag-Ox -) 400 mg PO BID [facility] Last Admin: 07/14/18 10:44 Dose: 400 mg Metoprolol Succinate (Toprol Xl -) 150 mg PO BID [facility] Last Admin: 07/14/18 10:43 Dose: 150 mg Metoprolol Tartrate (Lopressor Injection -) 5 mg IVPUSH Q4H PRN PRN Reason: TACHYCARDIA Valsartan (Diovan -) 320 mg PO DAILY [facility] Last Admin: 07/14/18 10:43 Dose: 320 mg - Objective Vital Signs: Vital Signs Temperature 98 F 07/14/18 10:00 Pulse Rate 98 H 07/14/18 10:00 Respiratory Rate 20 07/14/18 10:00 Blood Pressure 136/66 07/14/18 10:00 O2 Sat by Pulse Oximetry (%) 97 07/14/18 09:00 Constitutional: Yes: Well Nourished, Calm Eyes: Yes: WNL HENT: Yes: WNL Neck: Yes: WNL Cardiovascular: Yes: Pulse Irregular, S1, S2 Respiratory: Yes: Diminished Gastrointestinal: Yes: Normal Bowel Sounds, Soft Extremities: Yes: WNL Edema: No Labs: CBC, BMP 07/14/18 05:30 07/14/18 05:30 INR, PTT INR 1.64 (0.83-1.09) H 07/14/18 03:40 Problem List - Problems (1) Pulmonary HTN Code(s): I27.20 - PULMONARY HYPERTENSION, UNSPECIFIED (2) Diastolic CHF, acute on chronic Code(s): I50.33 - ACUTE ON CHRONIC DIASTOLIC (CONGESTIVE) HEART FAILURE (3) Acquired lymphedema of leg Code(s): I89.0 - LYMPHEDEMA, NOT ELSEWHERE CLASSIFIED (4) Atrial fibrillation Code(s): I48.91 - UNSPECIFIED ATRIAL FIBRILLATION Qualifiers: Atrial fibrillation type: paroxysmal Qualified Code(s): I48.0 - Paroxysmal atrial fibrillation (5) HTN (hypertension) Code(s): I10 - ESSENTIAL (PRIMARY) HYPERTENSION (6) Hyperlipidemia Code(s): E78.5 - HYPERLIPIDEMIA, UNSPECIFIED (7) Pleural effusion Code(s): J90 - PLEURAL EFFUSION, NOT ELSEWHERE CLASSIFIED (8) Shortness of breath Code(s): R06.02 - SHORTNESS OF BREATH Assessment/Plan IMP ACUTE ON CHRONIC CHF IMPROVING DYSPNEA IMPROVING S/P FALL BILATERAL PLEURAL EFFUSIONS R>L AFIB PULMONARY HTN HTN ANEMIA PLAN LASIX O2 DAILY WTS INHALED BRONCHODILATORS F/U CHEST X-RAYS THORACENTESIS IN AM AC MONITOR [place]WRENCEH+H DR AJ Problem List - Problems (1) Pulmonary HTN Code(s): I27.20 - PULMONARY HYPERTENSION, UNSPECIFIED (2) Diastolic CHF, acute on chronic Code(s): I50.33 - ACUTE ON CHRONIC DIASTOLIC (CONGESTIVE) HEART FAILURE (3) Acquired lymphedema of leg Code(s): I89.0 - LYMPHEDEMA, NOT ELSEWHERE CLASSIFIED (4) Atrial fibrillation Code(s): I48.91 - UNSPECIFIED ATRIAL FIBRILLATION Qualifiers: Atrial fibrillation type: paroxysmal Qualified Code(s): I48.0 - Paroxysmal atrial fibrillation (5) HTN (hypertension) Code(s): I10 - ESSENTIAL (PRIMARY) HYPERTENSION (6) Hyperlipidemia Code(s): E78.5 - HYPERLIPIDEMIA, UNSPECIFIED (7) Pleural effusion Code(s): J90 - PLEURAL EFFUSION, NOT ELSEWHERE CLASSIFIED (8) Shortness of breath Code(s): R06.02 - SHORTNESS OF BREATH
--- NOTE | 2018-07-14 13:36 | CON.GI ---
Consult Consult Specialty:: GI Referred by:: Hospitalist Reason for Consultation:: "Transaminitis" - History of Present Illness Chief Complaint: "I lost consciousness" History of Present Illness: 88F admitted for fall at home with loss of consciousness. Asked to evaluated transaminitis. Trransaminases are normal ALP and bili are elevated. They have been intermittently elevated in the past in review of [facility]itech. US revealed a heterogeneous liver without biliary ductal dilatation. She denies abdominal pain. There is no history of liver disease. She has a history of a large tubulovillous adenoma of the duodenum. This was evaluated in the past, was referred for EUS, EMR of the lesion at [facility], they did not take her insurance, had a repeat EGD in [address] Bunch redemonstrating the adenoma in the 2nd portion of the duodenum. She refused further evaluation at that time and still does. - Past Medical History [employer]: Yes: CVA, Other (h/o bifrontal craniotomies) Cardio/Vascular: Yes: AFIB, HTN, Hyperlipdemia, Other (non palpable pulses b/l feet) Gastrointestinal: Yes: GI Bleed, Other (Duodenal Tubulovillous adenoma) Musculoskeletal: Yes: Other (tender hypertrophic nails x 10 with subungual debris, +inflammed nails beds, +distal seperation of nail from bed, +xerosis b/ l feet) Rheumatology: Yes: Gout, Other (b/l knee pain) Dermatology: Yes: Other ( Other (tender hypertrophic nails x 10 with subungual debris, +inflammed nails beds, +distal seperation of nail from bed, +xerosis b/ l feet)) - Past Surgical History Past Surgical History: Yes: Craniotomy (excision of meningioma), Hysterectomy ( DANK/BSO) - Alcohol/Substance Use Hx Alcohol Use: No History of Substance Use: reports: None - Smoking History Smoking history: Never smoked Have you smoked in the past 12 months: No - Social History Usual Living Arrangement: Alone ADL: Family Assistance Place of : [facility] Home Medications - Allergies Allergies/Adverse Reactions: Allergies Allergy/AdvReac Type Severity Reaction Status Date / Time No Known Allergies Allergy Verified 07/12/18 12:16 - Home Medications Home Medications: Ambulatory Orders Cholecalciferol (Vitamin D3) [Vitamin D -] 400 unit PO DAILY 02/25/18 Diltiazem HCl [Cartia Xt] 180 mg PO DAILY 02/25/18 Apixaban [Eliquis -] 2.5 mg PO BID tablet 03/09/18 Atorvastatin Ca [Lipitor] 20 mg PO HS 30 Days #30 tablet 03/09/18 Losartan Potassium 100 mg PO DAILY 30 Days #30 tablet 03/09/18 Metoprolol Succinate [Toprol Xl] 100 mg PO BID 30 Days #60 tab.er.24h 03/09/18 Torsemide [Demadex -] 10 mg PO DAILY 30 Days #30 tablet 03/09/18 Magnesium Oxide 400 mg PO BID 07/12/18 Valsartan [Diovan] 320 mg PO DAILY 07/12/18 Allopurinol [Zyloprim -] 100 mg PO BID 07/13/18 Digoxin Oral Solution [Lanoxin Oral Solution -] 125 mg PO DAILY 07/13/18 Review of Systems - Review of Systems Constitutional: denies: Chills Respiratory: reports: Cough, SOB Gastrointestinal: denies: Abdominal Pain, Bloating, Constipation, Diarrhea, Melena, Nausea, Rectal Bleeding, Vomiting, Vomiting Blood Physical Exam-GI Vital Signs: Vital Signs Temperature 98 F 07/14/18 10:00 Pulse Rate 98 H 07/14/18 10:00 Respiratory Rate 20 07/14/18 10:00 Blood Pressure 136/66 07/14/18 10:00 O2 Sat by Pulse Oximetry (%) 97 07/14/18 09:00 Constitutional: Yes: Calm Eyes: No: Sclera Icterus Cardiovascular: Yes: Pulse Irregular Respiratory: Yes: Diminished (bases b/l R>L) Gastrointestinal Inspection: Yes: Hernia (Umbilical hernia: redicuible / non- tender). No: Scars ...Auscultate: Yes: Normoactive Bowel Sounds ...Palpate: Yes: Soft. No: Hepatomegaly, Splenomegaly, Tenderness ...Percussion: No: Tympanitic Edema: Yes Edema: LLE: 1+ (w/ stasis), RLE: 1+ (w/ stasis) Neurological: Yes: Alert Labs: CBC, BMP 07/14/18 05:30 07/14/18 05:30 INR, PTT INR 1.64 (0.83-1.09) H 07/14/18 03:40 Hepatic Panel Total Bilirubin 1.8 mg/dL (0.2-1) H 07/13/18 05:30 Direct Bilirubin 0.8 mg/dL (0.0-0.2) H 07/13/18 05:30 AST 21 U/L (15-37) 07/13/18 05:30 ALT 25 U/L (13-61) 07/13/18 05:30 Alkaline Phosphatase 191 U/L (45-117) H 07/13/18 05:30 Albumin 2.8 g/dl (3.4-5.0) L 07/13/18 05:30 Imaging - Results Ultrasound: Report Reviewed Problem List - Problems (1) Elevated alkaline phosphatase level Assessment/Plan: Along with elevated bilirubin. Suspect that this will be reflective of cardiac dysfunction with passive congestion. She is asymptomatic. When respiratory status permits, MRCP of the abdomen to evaluate liver and biliary tract. Hepatitis serologies pending Code(s): R74.8 - ABNORMAL LEVELS OF OTHER SERUM ENZYMES (2) Anemia Assessment/Plan: Work-up per primary team. Has a history of a large, untreated adenoma in the 2nd portion of the duodenum. She wishes not to have this evaluated further or have a colonoscopy performed. Code(s): D64.9 - ANEMIA, UNSPECIFIED
--- NOTE | 2018-07-14 17:12 | ECHO ---
Name: HILDA NAVARRO Exam:Adult Echocardiogram Study Date: 07/14/2018 09:50 AM Age: 88 yrs Reason For Study: CHF EXACERBATION Height: 65 in Weight: 200 lb BSA: 2.0 m2 MMode/2D Measurements & Calculations IVSd: 1.1 cm Ao root diam: 3.0 cm LVIDd: 5.4 cm LA dimension: 4.1 cm LVIDs: 3.4 cm ACS: 1.6 cm LVPWd: 0.90 cm IVSs: 1.3 cm LVPWs: 1.3 cm EDV(Teich): 139.5 ml ESV(Teich): 48.7 ml Doppler Measurements & Calculations MV E max diana: 104.1 cm/sec Ao V2 max: 171.6 cm/sec MV A max diana: 28.6 cm/sec Ao max P.8 mmHg MV E/A: 3.6 Ao V2 mean: 116.3 cm/sec Ao mean P.2 mmHg Ao V2 VTI: 33.4 cm MR max diana: 426.8 cm/sec TR max diana: 310.1 cm/sec MR max P.0 mmHg TR max P.6 mmHg RVSP(TR): 44.6 mmHg PI end-d diana: 119.5 cm/sec RAP systole: 5.0 mmHg Left Ventricle Normal LV size and function. Ejection Fraction = 66%. Left Ventricular Filling pattern is normal for age. Right Ventricle Normal LV size and function. Atria The left atrium is mildly dilated. The right atrium is mildly dilated. Mitral Valve The mitral valve leaflets appear normal. There is no evidence of stenosis, fluttering, or prolapse. T here is mild mitral regurgitation. Tricuspid Valve The tricuspid valve is normal. There is moderate to severe tricuspid regurgitation. Aortic Valve Fiborcalcific changes without aortic stenosis. Pulmonic Valve The pulmonic valve is normal in structure and function. Great Vessels The aortic root is normal size. Interpretation Summary Normal LV size and function. Normal LV size and function. The left atrium is mildly dilated. The right atrium is mildly dilated. There is mild mitral regurgitation. There is moderate to severe tricuspid regurgitation. Fiborcalcific changes without aortic stenosis MD Herb Aparicio 07/14/2018 05:11 PM
[2018-07-14] MEDS: HEPARIN - 25,000 UNIT in SODIUM CHLORIDE 495 ML IV SCH (19:03)
[2018-07-14] MEDS: ATORVASTATIN CA 20 MG TABLET (FP) PO SCH (21:59)
[2018-07-15 05:18] LABS: HEP.C VIRUS AB 0.1 s/co ratio (0.0-0.9)
[2018-07-15] MEDS: FUROSEMIDE 40 MG/4 ML INJECTABLE VIAL IVPUSH SCH ×2 (06:16→15:02)
[2018-07-15 06:17] LABS: HEMATOCRIT 27.7 % (32.4-45.2); HEMOGLOBIN 8.6 GM/dL (10.7-15.3); MCH 24.1 pg (25.7-33.7); MEAN CELL VOLUME 77.7 fl (80-96); MEAN PLT VOLUME 8.4 fl (7.5-11.1); PLATELET COUNT 228 K/MM3 (134-434); RBC 3.57 M/mm3 (3.60-5.2); RDW 20.4 % (11.6-15.6); WHITE BLOOD COUNT 6.9 K/mm3 (4.0-10.0)
[2018-07-15 06:36] LABS: ALBUMIN 2.8 g/dl (3.4-5.0); ALK PHOS 177 U/L (45-117); ANION GAP 7 MMOL/L (8-16); BILIRUBIN,TOTAL 1.3 mg/dL (0.2-1); BLOOD UREA NITROGEN 26 mg/dL (7-18); CALCIUM 8.5 mg/dL (8.5-10.1); CHLORIDE 108 mmol/L (98-107); CO2 29 mmol/L (21-32); CREATININE 1.1 mg/dL (0.55-1.3); GLUCOSE,RANDOM 89 mg/dL (74-106); LDH 239 U/L (84-246); POTASSIUM 3.4 mmol/L (3.5-5.1); SGOT/AST 21 U/L (15-37); SGPT/ALT 24 U/L (13-61); SODIUM 143 mmol/L (136-145); TOT PROT 5.8 g/dl (6.4-8.2)
[2018-07-15] MEDS: ALBUTEROL SO4 2.5/IPRATROPIUM 0.5 INH SOL 3 ML VIAL.NEB. NEB SCH ×4 (08:00→20:54)
--- NOTE | 2018-07-15 10:24 | PN ---
Progress Note (short form) - Note Progress Note: History of Present Illness: feels better today, sob improved. no palps, dizziness, lightheadedness, cp Current Medications Albuterol/Ipratropium (Duoneb -) 1 amp NEB RQID [facility] Last Admin: 07/15/18 08:00 Dose: 1 amp Allopurinol (Zyloprim -) 100 mg PO DAILY [facility] Last Admin: 07/14/18 10:44 Dose: 100 mg Artificial Tears (Artificial Tears) 1 drop OU BID PRN PRN Reason: FOR ITCHING Atorvastatin Calcium (Lipitor -) 20 mg PO HS [facility] Last Admin: 07/14/18 21:59 Dose: 20 mg Cholecalciferol (Vitamin D3 -) 400 unit PO DAILY [facility] Last Admin: 07/14/18 10:45 Dose: 400 unit Diltiazem HCl (Cardizem Cd -) 180 mg PO DAILY [facility] Last Admin: 07/14/18 10:44 Dose: 180 mg Ferrous Gluconate (Fergon -) 324 mg PO DAILY [facility] Last Admin: 07/14/18 10:44 Dose: 324 mg Furosemide (Lasix Injection -) 40 mg IVPUSH BIDLASIX [facility] Last Admin: 07/15/18 06:16 Dose: 40 mg Heparin Sodium (Porcine) (Heparin -) 1,000 unit IVPUSH PRN PRN PRN Reason: Heparin Heparin Sodium (Porcine) (Heparin -) 5,000 unit IVPUSH PRN PRN PRN Reason: Heparin Last Admin: 07/14/18 04:46 Dose: 5,000 unit Heparin Sodium (Porcine) 25, (000 unit/ Sodium Chloride) 500 mls @ 20 mls/hr IV TITR [facility]; Protocol Last Admin: 07/14/18 19:03 Dose: 1,150 unit/hr, 23 mls/hr Magnesium Oxide (Mag-Ox -) 400 mg PO BID [facility] Last Admin: 07/14/18 21:59 Dose: 400 mg Metoprolol Succinate (Toprol Xl -) 150 mg PO BID [facility] Last Admin: 07/14/18 21:59 Dose: 150 mg Metoprolol Tartrate (Lopressor Injection -) 5 mg IVPUSH Q4H PRN PRN Reason: TACHYCARDIA Valsartan (Diovan -) 320 mg PO DAILY [facility] Last Admin: 07/14/18 10:43 Dose: 320 mg Vital Signs: Vital Signs Period Temp Pulse Resp BP Sys/[place] Pulse Ox Last 24 Hr 98 F-98.4 F 72-106 20-20 105-145/60-76 97 Constitutional: Yes: Well Nourished, No Distress Eyes: No: Sclera Icterus HENT: No: Nasal Congestion Neck: No: Decreased ROM Respiratory: Yes: Diminished (R lower half). No: Accessory Muscle Use, Rales, Wheezes Gastrointestinal: Yes: Normal Bowel Sounds. No: Distention, Hepatomegaly, Palpable Mass, Tenderness Cardiovascular: Yes: Pulse Irregular JVD: Yes Carotid Bruit: No PMI: Non-Displaced Heart Sounds: Yes: S1, S2. No: Gallop Murmur: No: Systolic Murmur, Diastolic Murmur Musculoskeletal: Yes: Other (No kyphosis) Extremities: No: Cold, Cyanosis Edema: Yes (2+ pretib) Peripheral Pulses: 2+ Left Carotid, 2+ Right Carotid, 2+ Left Doralis Pedis, 2+ Right Dorsalis Pedis Integumentary: No: Jaundice Neurological: Yes: Alert, Oriented (x3) Psychiatric: No: Agitated Assessment/Plan ECG: afib, PVC. baseline wander artifact. NSTWAs diffusely--unchanged vs prior CT chest: large R effusion, small L. no pulm edema described Echo 02/14: ([facility]): LV not well seen. RV ??. mild (AV not well seen). mod-sev MR and TR. RVSP 40-50. Echo 06/2017: nl lv fn. mod rve. rv sys function moderately reduced. mild MR, mod TR. sev phtn. trivial pericardial effusion. Echo 2016: low-nl EF 50-55% (beat to beat variability). mod RV dilation, borderline depressed RV fxn. 1+ /MR, Mod TR, mod pHTN (avg TR 42 mmHg), Cath 2005: LVEDP 18, EF 60%. pRCA mild, pLAD mild, mLAD 50-60%, pLCx mild, OM1 mild. CT head: R occipital lobe infarct, likely old Carotid sono 2018: rt common carotid with mod plaque 50-69%. moderate plaque on left with borderline stenosis. tele: AF HR rate controlled acute on chronic diastolic CHF with pHTN/RV failure, large R pleural effusion: - home torsemide dose 10 qd as of 04/16 visit (up to 20-40 qd in past), sees dr hargrove in office - BNP 2400, stable (ranges [id number]) - office wt 190 in 04/16, currently 203 lbs. - ++ JVD on exam, with increase in abdomen distension and LE edema at home of late. - large R pleural effusion on CT scan (new vs 02/14 CXR)--? HF etiology? - suspect Afib HR control may be important in optimizing HF status (though may all be secondary to high filling pressures)--as disc'd - digoxin for RV inotropy previously given, not on recent office med list (not given here) - home meds: metoprolol 100 BID, diltiazem ER 180 qd, losartan 100 qd, torsemide 10 qd - consider add spironolactone as outpt, if cannot tolerate higher doses torsemide - 07/14- Cr stable, sob improving, still with JVD, weight down on lasix 40 mg IV BID, continue - trend Cr, lytes, daily standing weight - planned thoracentesis for R pleural effusion today Afib - rate controlled with metoprolol and diltiazem during last admit here - dig off as of 04/16 office list (also given for RV inotropy in past)--? toxic levels. defer this med at this time - diltiazem may cause further suppression of RV contractility and worsen right sided HF--pt could consider AVN ablation and PM as an alternate treatment, vs amio--will defer this discussion to outpt setting since it is an elective, long- term issue if she otherwise remains stable from chf standpoint - increase metopr to 150 bid - cont dilitazem for now as doing - previously was off AC due to h/o GI bleed/duodenal ulcer and pt deferred f/u with GI - old infarct noted on CT head last time here--Eliquis 2.5 bid started subsequently - holding eliquis now for thoracentesis, on heparin gtt elev troponin: - intermediate range not diagnostic of myocardial injury (in absence of clinical picture suspicious), flat trend not c/w ACS. - ECG non-ischemic -con't ASA, hold statin while with ck elevation/borderline rhabdo. CKD: -baseline creat 1.0-1.5 -renal fxn stable here HTN: -BP elevated -observe trend with admin of AVN blockers and ARB today -low threshold to add spironolactone (if labs stable) carotid atherosclerosis, - previously declined further imaging w/u as outpt - con't asa, statin prior tx plan
[2018-07-15] MEDS: ALLOPURINOL 100 MG TABLET (FP) PO SCH (10:35)
[2018-07-15] MEDS: VALSARTAN 160 MG TABLET (UD) PO SCH (10:35)
[2018-07-15] MEDS: CHOLECALCIFEROL (VITAMIN D3) 400 UNIT TABLET (FP) PO SCH (10:35)
[2018-07-15] MEDS: MAGNESIUM OXIDE 400 MG TABLET (FP) PO SCH ×2 (10:36→22:21)
[2018-07-15] MEDS: FERROUS GLUCONATE 324 MG TAB (FP) PO SCH (10:36)
--- NOTE | 2018-07-15 11:16 | PN ---
Progress Note, Physician History of Present Illness: PULMONARY ALERT,NO DISTRESS,FEELING BETTER,LESS DYSPNEIC. PT SCHEDULED FOR THORACENTESIS TODAY - Current Medication List Current Medications: Active Medications Albuterol/Ipratropium (Duoneb -) 1 amp NEB RQID [facility] Last Admin: 07/15/18 08:00 Dose: 1 amp Allopurinol (Zyloprim -) 100 mg PO DAILY [facility] Last Admin: 07/15/18 10:35 Dose: 100 mg Artificial Tears (Artificial Tears) 1 drop OU BID PRN PRN Reason: FOR ITCHING Last Admin: 07/15/18 10:36 Dose: 1 drop Atorvastatin Calcium (Lipitor -) 20 mg PO HS [facility] Last Admin: 07/14/18 21:59 Dose: 20 mg Cholecalciferol (Vitamin D3 -) 400 unit PO DAILY [facility] Last Admin: 07/15/18 10:35 Dose: 400 unit Diltiazem HCl (Cardizem Cd -) 180 mg PO DAILY [facility] Last Admin: 07/15/18 10:35 Dose: 180 mg Ferrous Gluconate (Fergon -) 324 mg PO DAILY [facility] Last Admin: 07/15/18 10:36 Dose: 324 mg Furosemide (Lasix Injection -) 40 mg IVPUSH BIDLASIX [facility] Last Admin: 07/15/18 06:16 Dose: 40 mg Heparin Sodium (Porcine) (Heparin -) 1,000 unit IVPUSH PRN PRN PRN Reason: Heparin Heparin Sodium (Porcine) (Heparin -) 5,000 unit IVPUSH PRN PRN PRN Reason: Heparin Last Admin: 07/14/18 04:46 Dose: 5,000 unit Heparin Sodium (Porcine) 25, (000 unit/ Sodium Chloride) 500 mls @ 20 mls/hr IV TITR [facility]; Protocol Last Admin: 07/14/18 19:03 Dose: 1,150 unit/hr, 23 mls/hr Magnesium Oxide (Mag-Ox -) 400 mg PO BID [facility] Last Admin: 07/15/18 10:36 Dose: 400 mg Metoprolol Succinate (Toprol Xl -) 150 mg PO BID [facility] Last Admin: 07/15/18 10:35 Dose: 150 mg Metoprolol Tartrate (Lopressor Injection -) 5 mg IVPUSH Q4H PRN PRN Reason: TACHYCARDIA Valsartan (Diovan -) 320 mg PO DAILY [facility] Last Admin: 07/15/18 10:35 Dose: 320 mg - Objective Vital Signs: Vital Signs Temperature 98 F 07/15/18 09:28 Pulse Rate 83 07/15/18 09:28 Respiratory Rate 20 07/15/18 09:28 Blood Pressure 132/53 L 07/15/18 09:28 O2 Sat by Pulse Oximetry (%) 97 07/15/18 09:00 Constitutional: Yes: Well Nourished, Calm Eyes: Yes: WNL HENT: Yes: WNL Neck: Yes: WNL Cardiovascular: Yes: Pulse Irregular, S1, S2 Respiratory: Yes: Diminished Gastrointestinal: Yes: Normal Bowel Sounds, Soft Extremities: Yes: WNL Edema: Yes Labs: CBC, BMP 07/15/18 05:30 07/15/18 05:30 INR, PTT INR 1.64 (0.83-1.09) H 07/14/18 03:40 Problem List - Problems (1) Pulmonary HTN Code(s): I27.20 - PULMONARY HYPERTENSION, UNSPECIFIED (2) Diastolic CHF, acute on chronic Code(s): I50.33 - ACUTE ON CHRONIC DIASTOLIC (CONGESTIVE) HEART FAILURE (3) Acquired lymphedema of leg Code(s): I89.0 - LYMPHEDEMA, NOT ELSEWHERE CLASSIFIED (4) Atrial fibrillation Code(s): I48.91 - UNSPECIFIED ATRIAL FIBRILLATION Qualifiers: Atrial fibrillation type: paroxysmal Qualified Code(s): I48.0 - Paroxysmal atrial fibrillation (5) HTN (hypertension) Code(s): I10 - ESSENTIAL (PRIMARY) HYPERTENSION (6) Hyperlipidemia Code(s): E78.5 - HYPERLIPIDEMIA, UNSPECIFIED (7) Pleural effusion Code(s): J90 - PLEURAL EFFUSION, NOT ELSEWHERE CLASSIFIED (8) Shortness of breath Code(s): R06.02 - SHORTNESS OF BREATH Assessment/Plan IMP ACUTE ON CHRONIC CHF IMPROVING DYSPNEA IMPROVING S/P FALL BILATERAL PLEURAL EFFUSIONS R>L AFIB PULMONARY HTN HTN ANEMIA PLAN LASIX O2 DAILY WTS INHALED BRONCHODILATORS F/U CHEST X-RAYS THORACENTESIS TODAY AC MONITOR LYTES,H+H DR AJ Problem List - Problems (1) Pulmonary HTN Code(s): I27.20 - PULMONARY HYPERTENSION, UNSPECIFIED (2) Diastolic CHF, acute on chronic Code(s): I50.33 - ACUTE ON CHRONIC DIASTOLIC (CONGESTIVE) HEART FAILURE (3) Acquired lymphedema of leg Code(s): I89.0 - LYMPHEDEMA, NOT ELSEWHERE CLASSIFIED (4) Atrial fibrillation Code(s): I48.91 - UNSPECIFIED ATRIAL FIBRILLATION Qualifiers: Atrial fibrillation type: paroxysmal Qualified Code(s): I48.0 - Paroxysmal atrial fibrillation (5) HTN (hypertension) Code(s): I10 - ESSENTIAL (PRIMARY) HYPERTENSION (6) Hyperlipidemia Code(s): E78.5 - HYPERLIPIDEMIA, UNSPECIFIED (7) Pleural effusion Code(s): J90 - PLEURAL EFFUSION, NOT ELSEWHERE CLASSIFIED (8) Shortness of breath Code(s): R06.02 - SHORTNESS OF BREATH
--- NOTE | 2018-07-15 11:30 | PN ---
Progress Note, Physician Chief Complaint: Elevated LFTs, h/o duodenal polyp History of Present Illness: Pt seen/examined at bedside, reports feeling better, denies abdominal pain, n/v , fever/chills. Scheduled for thoracocentesis today. - Current Medication List Current Medications: Active Medications Albuterol/Ipratropium (Duoneb -) 1 amp NEB RQID [facility] Last Admin: 07/15/18 08:00 Dose: 1 amp Allopurinol (Zyloprim -) 100 mg PO DAILY [facility] Last Admin: 07/15/18 10:35 Dose: 100 mg Artificial Tears (Artificial Tears) 1 drop OU BID PRN PRN Reason: FOR ITCHING Last Admin: 07/15/18 10:36 Dose: 1 drop Atorvastatin Calcium (Lipitor -) 20 mg PO HS [facility] Last Admin: 07/14/18 21:59 Dose: 20 mg Cholecalciferol (Vitamin D3 -) 400 unit PO DAILY [facility] Last Admin: 07/15/18 10:35 Dose: 400 unit Diltiazem HCl (Cardizem Cd -) 180 mg PO DAILY [facility] Last Admin: 07/15/18 10:35 Dose: 180 mg Ferrous Gluconate (Fergon -) 324 mg PO DAILY [facility] Last Admin: 07/15/18 10:36 Dose: 324 mg Furosemide (Lasix Injection -) 40 mg IVPUSH BIDLASIX [facility] Last Admin: 07/15/18 06:16 Dose: 40 mg Heparin Sodium (Porcine) (Heparin -) 1,000 unit IVPUSH PRN PRN PRN Reason: Heparin Heparin Sodium (Porcine) (Heparin -) 5,000 unit IVPUSH PRN PRN PRN Reason: Heparin Last Admin: 07/14/18 04:46 Dose: 5,000 unit Heparin Sodium (Porcine) 25, (000 unit/ Sodium Chloride) 500 mls @ 20 mls/hr IV TITR [facility]; Protocol Last Admin: 07/14/18 19:03 Dose: 1,150 unit/hr, 23 mls/hr Magnesium Oxide (Mag-Ox -) 400 mg PO BID [facility] Last Admin: 07/15/18 10:36 Dose: 400 mg Metoprolol Succinate (Toprol Xl -) 150 mg PO BID [facility] Last Admin: 07/15/18 10:35 Dose: 150 mg Metoprolol Tartrate (Lopressor Injection -) 5 mg IVPUSH Q4H PRN PRN Reason: TACHYCARDIA Valsartan (Diovan -) 320 mg PO DAILY NOEMÍ Last Admin: 07/15/18 10:35 Dose: 320 mg - Objective Vital Signs: Vital Signs Temperature 98 F 07/15/18 09:28 Pulse Rate 83 07/15/18 09:28 Respiratory Rate 20 07/15/18 09:28 Blood Pressure 132/53 L 07/15/18 09:28 O2 Sat by Pulse Oximetry (%) 97 07/15/18 09:00 Constitutional: Yes: Well Nourished, No Distress, Calm Cardiovascular: Yes: WNL, Regular Rate and Rhythm Respiratory: Yes: WNL, Regular, Other (Decreased A/E R>L) Gastrointestinal: Yes: WNL, Normal Bowel Sounds, Soft Edema: No Labs: CBC, BMP 07/15/18 05:30 07/15/18 05:30 INR, PTT INR 1.64 (0.83-1.09) H 07/14/18 03:40 Problem List - Problems (1) Anemia Assessment/Plan: 88 yo female h/p A fib, CHF, HTN presents after a fall with shortness of breath found to have a large right pleural effusion pending thoracocentesis today. Hb stable, no overt GI bleeding however evidence of iron deficiency. Pt with known large duodenal polyp s/p prior EGD 2013, biopsies consistent with tubulovillous adenoma. Per prior discussion with pt, she refused further endoscopic intervention/removal. -Again discussed with pt possible endoscopic evaluation and risk of malignant potential in setting of known advanced adenomatous duodenal polyp, pt continues to refuse at this time. -Also attempted to contact pts daughter, Keke to discuss further (cell and mobile), however no answer, VM not available. Code(s): D64.9 - ANEMIA, UNSPECIFIED (2) Elevated alkaline phosphatase level Assessment/Plan: Unclear exact etiology for LFT fluctuations (predominantly cholestatic pattern) , though now downtrending. US revealing cholecystectomy, no biliary dilation, with possible heterogeneous appearing liver. -Continue to monitor LFT trend -Avoid nonessential hepatotoxic medications -Check HBsAb to assess immunity status (remainder of serologies negative) -Could also check AMA, ASMA, ANA M r/o autoimmune etiologies -Consider MRCP once further optimized from a respiratory standpoint (pending thoracocentesis today) Code(s): R74.8 - ABNORMAL LEVELS OF OTHER SERUM ENZYMES
--- NOTE | 2018-07-15 11:56 | PN ---
Physical Exam: SUBJECTIVE: Patient seen and examined this AM. She states she is feeling okay and that her cough is improving. OBJECTIVE: Vital Signs Period Temp Pulse Resp BP Sys/[place]k Pulse Ox Last 24 Hr 97.1 F-98.2 F 81-93 20-20 115-138/53-81 97-97 GENERAL: A&O, no acute distress HEAD: Normocephalic, atraumatic. EYES: PERRL, no scleral icterus EARS, NOSE, THROAT: oropharynx clear without exudates. Moist mucous membranes. NECK: supple without lymphadenopathy LUNGS: crackles throughout, decreased breath sounds in the right base HEART: Irregularly irregular, normal S1 and S2 without murmur ABDOMEN: Soft, nontender to palpation, normoactive bowel sounds MUSCULOSKELETAL: No bony deformities or tenderness. EXTREMITIES: warm, well-perfused. 2+ pitting edema SKIN: Warm, dry, no rashes or lesions noted Laboratory Results - last 24 hr 07/13/18 07/14/18 07/14/18 16:00 05:30 11:05 WBC RBC Hgb Hct MCV MCH MCHC RDW Plt Count MPV PTT (Actin FS) 58.5 H Sodium Potassium Chloride Carbon Dioxide Anion Gap BUN Creatinine Creat Clearance w eGFR Random Glucose Calcium Total Bilirubin AST ALT Alkaline Phosphatase LD Total 348 H Total Protein Albumin Hepatitis A IgM Ab Negative Hep Bs Antigen Negative Hep B Core IgM Ab Negative Hepatitis C Antibody 0.1 07/15/18 07/15/18 07/15/18 05:30 05:30 05:30 WBC 6.9 RBC 3.57 L Hgb 8.6 L Hct 27.7 L MCV 77.7 L MCH 24.1 L MCHC 31.0 L RDW 20.4 H Plt Count 228 MPV 8.4 PTT (Actin FS) 38.7 H Sodium 143 Potassium 3.4 L Chloride 108 H Carbon Dioxide 29 Anion Gap 7 L BUN 26 H Creatinine 1.1 Creat Clearance w eGFR 46.77 Random Glucose 89 Calcium 8.5 Total Bilirubin 1.3 H AST 21 ALT 24 Alkaline Phosphatase 177 H LD Total 239 Total Protein 5.8 L Albumin 2.8 L Hepatitis A IgM Ab Hep Bs Antigen Hep B Core IgM Ab Hepatitis C Antibody Active Medications Generic Name Dose Route Start Last Admin Trade Name Freq PRN Reason Stop Dose Admin Albuterol/Ipratropium 1 amp 07/12/18 20:00 07/15/18 08:00 Duoneb - NEB 1 amp RQID NOEMÍ Administration Allopurinol 100 mg 07/13/18 10:00 07/15/18 10:35 Zyloprim - PO 100 mg DAILY NOEMÍ Administration Artificial Tears 1 drop 07/14/18 11:27 07/15/18 10:36 Artificial Tears OU 1 drop BID PRN Administration FOR ITCHING Atorvastatin Calcium 20 mg 07/12/18 22:00 07/14/18 21:59 Lipitor - PO 20 mg HS NOEMÍ Administration Cholecalciferol 400 unit 07/13/18 10:00 07/15/18 10:35 Vitamin D3 - PO 400 unit DAILY NOEMÍ Administration Diltiazem HCl 180 mg 07/13/18 10:00 07/15/18 10:35 Cardizem Cd - PO 180 mg DAILY NOEMÍ Administration Ferrous Gluconate 324 mg 07/14/18 10:00 07/15/18 10:36 Fergon - PO 324 mg DAILY NOEMÍ Administration Furosemide 40 mg 07/13/18 14:00 07/15/18 06:16 Lasix Injection - IVPUSH 40 mg BIDLASIX NOEMÍ Administration Heparin Sodium (Porcine) 1,000 unit 07/13/18 12:04 Heparin - IVPUSH PRN PRN Heparin Heparin Sodium (Porcine) 5,000 unit 07/13/18 12:04 07/14/18 04:46 Heparin - IVPUSH 5,000 unit PRN PRN Administration Heparin Heparin Sodium (Porcine) 25, 500 mls @ 20 mls/hr 07/13/18 21:00 07/14/18 19: 03 000 unit/ Sodium Chloride IV 1,150 unit/hr TITR NOEMÍ 23 mls/hr Administration Protocol 1,000 UNIT/HR Magnesium Oxide 400 mg 07/12/18 22:00 07/15/18 10:36 Mag-Ox - PO 400 mg BID NOEMÍ Administration Metoprolol Succinate 150 mg 07/13/18 12:45 07/15/18 10:35 Toprol Xl - PO 150 mg BID NOEMÍ Administration Metoprolol Tartrate 5 mg 07/13/18 11:45 Lopressor Injection - IVPUSH Q4H PRN TACHYCARDIA Valsartan 320 mg 07/13/18 10:00 07/15/18 10:35 Diovan - PO 320 mg DAILY NOEMÍ Administration ASSESSMENT/PLAN: Pt is an 88 yo F with PMHx of GI bleed, afib (on eliquis), HTN, HLD, venous insuff with chronic lymphedema, OA, CHF (diastolic), back pain presenting from home after a fall but found to be SOB. Diastolic CHF with pleural effusions -b/l effusions noted, Large on right, small on left, atelectasis noted -Pulm consult appreciated -Cardiology consult appreciated -Thoracentesis today, send fluid for analysis and cytology -Elevated troponin though flat trend, No ischemic changes on EKG Transaminitis -Improving -RUQ US with heterogeneous liver -GI consult appreciated Fall -Denies LOC -CT noted without acute fracture or bleed -PT eval A-fib -Cardiology consult appreciated -Increase Toprol XL from 100 to 150 mg PO Daily -Can add cardizem if still elevated > 120 -Continue Cardizem, cardiology consideration appreciated -Lopressor 5 mg PO Q4 HTN -Diovan 320 mg PO Daily -Cardizem 180 mg PO Daily HLD -Lipitor 20 mg PO HS DVT Prophylaxis -Hold eliquis or thoracentesis, heparin drip, d/c this AM. resume eliquis following biopsy FEN -Fluids: none -Electrolytes: No electrolyte abnormalities, BMP in AM -Nutrition: Na controlled diet Disposition Telemetry Visit type - Emergency Visit Emergency Visit: Yes ED Registration Date: 07/12/18 Care time: The patient presented to the Emergency Department on the above date and was hospitalized for further evaluation of their emergent condition. - New Patient This patient is new to me today: No - Critical Care Critical Care patient: No
--- NOTE | 2018-07-15 13:14 | PN ---
Teaching Attending Note Name of Resident: Louie Rubio ATTENDING PHYSICIAN STATEMENT I saw and evaluated the patient. I reviewed the resident's note and discussed the case with the resident. I agree with the resident's findings and plan as documented. SUBJECTIVE: Dyspnea improved. No fever/chills. OBJECTIVE: Afebrile/hemodynamically Stable. Last Vital Signs Temp Pulse Resp BP Pulse Ox 98 F 83 20 132/53 L 97 07/15/18 09:28 07/15/18 09:28 07/15/18 09:28 07/15/18 09:28 07/15/18 09:00 HEENT - Atraumatic/Normocephalic Heart - S1, S2, soft SM Lungs - decreased air entry bibasally R>L with R sided crackles. Abdomen - Soft, non-tender. Bowel Sounds normal. Extremities - Bilateral LE edema (chronic with skin changes), no calf tenderness Laboratory Results - last 24 hr 07/13/18 07/15/18 07/15/18 16:00 05:30 05:30 WBC 6.9 RBC 3.57 L Hgb 8.6 L Hct 27.7 L MCV 77.7 L MCH 24.1 L MCHC 31.0 L RDW 20.4 H Plt Count 228 MPV 8.4 PTT (Actin FS) Sodium 143 Potassium 3.4 L Chloride 108 H Carbon Dioxide 29 Anion Gap 7 L BUN 26 H Creatinine 1.1 Creat Clearance w eGFR 46.77 Random Glucose 89 Calcium 8.5 Total Bilirubin 1.3 H AST 21 ALT 24 Alkaline Phosphatase 177 H LD Total 239 Total Protein 5.8 L Albumin 2.8 L Hepatitis A IgM Ab Negative Hep Bs Antigen Negative Hep B Core IgM Ab Negative Hepatitis C Antibody 0.1 07/15/18 05:30 WBC RBC Hgb Hct MCV MCH MCHC RDW Plt Count MPV PTT (Actin FS) 38.7 H Sodium Potassium Chloride Carbon Dioxide Anion Gap BUN Creatinine Creat Clearance w eGFR Random Glucose Calcium Total Bilirubin AST ALT Alkaline Phosphatase LD Total Total Protein Albumin Hepatitis A IgM Ab Hep Bs Antigen Hep B Core IgM Ab Hepatitis C Antibody Current Medications Generic Name Dose Route Start Last Admin Trade Name Freq PRN Reason Stop Dose Admin Albuterol/Ipratropium 1 amp 07/12/18 20:00 07/15/18 11:57 Duoneb - NEB Not Given RQID NOEMÍ Allopurinol 100 mg 07/13/18 10:00 07/15/18 10:35 Zyloprim - PO 100 mg DAILY NOEMÍ Administration Artificial Tears 1 drop 07/14/18 11:27 07/15/18 10:36 Artificial Tears OU 1 drop BID PRN Administration FOR ITCHING Atorvastatin Calcium 20 mg 07/12/18 22:00 07/14/18 21:59 Lipitor - PO 20 mg HS NOEMÍ Administration Cholecalciferol 400 unit 07/13/18 10:00 07/15/18 10:35 Vitamin D3 - PO 400 unit DAILY NOEMÍ Administration Diltiazem HCl 180 mg 07/13/18 10:00 07/15/18 10:35 Cardizem Cd - PO 180 mg DAILY NOEMÍ Administration Ferrous Gluconate 324 mg 07/14/18 10:00 07/15/18 10:36 Fergon - PO 324 mg DAILY NOEMÍ Administration Furosemide 40 mg 07/13/18 14:00 07/15/18 06:16 Lasix Injection - IVPUSH 40 mg BIDLASIX NOEMÍ Administration Heparin Sodium (Porcine) 1,000 unit 07/13/18 12:04 Heparin - IVPUSH PRN PRN Heparin Heparin Sodium (Porcine) 5,000 unit 07/13/18 12:04 07/14/18 04:46 Heparin - IVPUSH 5,000 unit PRN PRN Administration Heparin Heparin Sodium (Porcine) 25, 500 mls @ 20 mls/hr 07/13/18 21:00 07/14/18 19: 03 000 unit/ Sodium Chloride IV 1,150 unit/hr TITR NOEMÍ 23 mls/hr Administration Protocol 1,000 UNIT/HR Magnesium Oxide 400 mg 07/12/18 22:00 07/15/18 10:36 Mag-Ox - PO 400 mg BID NOEMÍ Administration Metoprolol Succinate 150 mg 07/13/18 12:45 07/15/18 10:35 Toprol Xl - PO 150 mg BID NOEMÍ Administration Metoprolol Tartrate 5 mg 07/13/18 11:45 Lopressor Injection - IVPUSH Q4H PRN TACHYCARDIA Valsartan 320 mg 07/13/18 10:00 07/15/18 10:35 Diovan - PO 320 mg DAILY NOEMÍ Administration ASSESSMENT AND PLAN: 88 year old female with history of Atrial Fibrillation on Eliquis, HTN, HLD, prior GI Bleed, Venous insufficiency with chronic lymphedema, Chronic diastolic CHF, presents after sustaining a fall at home, found to be dyspneic in ED. EKG - Afibr, HR 108 Hip/pelvis CT, Xray- avascular necrosis of L femur, no fracture CT C spine and Head - negative for fracture or acute pathology. 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 BNP-2407.7 CXR- congestive features, cardiomegaly, R pleural effusion CT Chest - Large R pleural effusion with basilar atelectasis, mild thyromegaly. 1. Acute on Chronic Diastolic CHF with significant R pleural effusion. BNP elevated, congestion on CXR, R pleural effusion On IV Lasix diuresis. Normally on Torsemide at home - will resume once Cardiology agrees. Mild elevation in Troponin - flat, unlikely ACS given clinical picture - Cardiology following. Water restriction, daily weight, I/Os. Echo - normal EF. Moderate to Sever TR. Thoracentesis scheduled initally scheduled 07/14, deferred to 07/15 2. Ambulatory Dysfunction s/p Fall Xray Hip/Pelvis/C-spine, Head - no acute fracture. PT eval 3. Transaminitis with hyperbilirubinemia - possibly sec to hepatic congestion. Abdominal US demonstrates heterogenous Liver. Hepatitis panel negative AMA/ANA M/ASMA pending GI following. 4. Microcytic Anemia, chronic, sec to Iron deficiency Ferritin 18 Iron Sat 5% Prior FOBT negative. Further work-up as per GI, likely as out-patient. Already on Ferrous Gluconate. Will give IV Venofer. 5. Atrial Fibrillation - normally on Eliquis (held for thoracentesis with heparin drip bridging) Continue Metoprolol and Diltiazem. Metoprolol dose increased to 150mg bid. 6. HTN - continue Metoprolol, Valsartan, Diltiazem 7. 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 For ortho outpatient eval. 9 . Venous insufficiency with chronic lymphedema - on lasix diuresis. 10. Thyromegaly on CT Chest. US Thyroid requested but apparently not performed as in-patient study at this facility. 11. Hypokalemia - repleted 12. CKD 3 -Stable. 13. 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 Carotid Doppler - moderate sized plaque with hemodynamically significant stenosis, previously declined intervention. On Apixaban and Statin. 14. History of Gout - continue Allopurinol. DVT Px - Eliquis held for Thoracentesis with Heparin bridging.
[2018-07-15] MEDS ORDERED: POTASSIUM CHLORIDE TABS 20 MEQ TABLET.ER (FP) PO ONE ×2 (13:23→20:00)
[2018-07-15] MEDS ORDERED: IRON SUCROSE INJECTION 100 MG in SODIUM CHLORIDE 95 ML IVPB ONE (14:15)
[2018-07-15] MEDS: HEPARIN - 25,000 UNIT in SODIUM CHLORIDE 495 ML IV SCH (18:01)
[2018-07-15] MEDS: ATORVASTATIN CA 20 MG TABLET (FP) PO SCH (22:21)
[2018-07-16 06:21] LABS: HEMATOCRIT 27.7 % (32.4-45.2); HEMOGLOBIN 8.7 GM/dL (10.7-15.3); MCH 24.4 pg (25.7-33.7); MCHC 31.3 g/dl (32.0-36.0); MEAN CELL VOLUME 77.7 fl (80-96); MEAN PLT VOLUME 8.5 fl (7.5-11.1); PLATELET COUNT 216 K/MM3 (134-434); RBC 3.56 M/mm3 (3.60-5.2); RDW 20.8 % (11.6-15.6); WHITE BLOOD COUNT 6.5 K/mm3 (4.0-10.0)
[2018-07-16] MEDS: FUROSEMIDE 40 MG/4 ML INJECTABLE VIAL IVPUSH SCH ×2 (06:42→17:09)
[2018-07-16] MEDS: ALBUTEROL SO4 2.5/IPRATROPIUM 0.5 INH SOL 3 ML VIAL.NEB. NEB SCH ×4 (07:37→21:20)
[2018-07-16 08:24] LABS: ALBUMIN 2.8 g/dl (3.4-5.0); ALK PHOS 192 U/L (45-117); ANION GAP 8 MMOL/L (8-16); BILIRUBIN,TOTAL 1.3 mg/dL (0.2-1); BLOOD UREA NITROGEN 29 mg/dL (7-18); CALCIUM 8.8 mg/dL (8.5-10.1); CHLORIDE 108 mmol/L (98-107); CO2 30 mmol/L (21-32); CREATININE 1.3 mg/dL (0.55-1.3); GLUCOSE,RANDOM 93 mg/dL (74-106); MAGNESIUM 1.9 mg/dL (1.8-2.4); PHOSPHOROUS 3.1 mg/dL (2.5-4.9); POTASSIUM 4.1 mmol/L (3.5-5.1); SGOT/AST 24 U/L (15-37); SGPT/ALT 26 U/L (13-61); SODIUM 145 mmol/L (136-145); TOT PROT 5.7 g/dl (6.4-8.2)
[2018-07-16] MEDS ORDERED: HEPARIN NA (PORCINE) 5,000 UNITS/ML 1ML VIAL IVPUSH PRN ×4 (09:02)
[2018-07-16] MEDS ORDERED: ARTIFICIAL TEARS (POLYVINYL ALCOHOL) OPTH DROPS OU PRN (09:02)
[2018-07-16] MEDS ORDERED: HEPARIN - 25,000 UNIT in SODIUM CHLORIDE 495 ML IV SCH (10:00)
--- NOTE | 2018-07-16 11:04 | PN ---
Teaching Attending Note Name of Resident: Louie Rubio ATTENDING PHYSICIAN STATEMENT I saw and evaluated the patient. I reviewed the resident's note and discussed the case with the resident. I agree with the resident's findings and plan as documented. SUBJECTIVE: Dyspnea resolved. No fever/chills. OBJECTIVE: Afebrile/hemodynamically Stable. Now off O2. Comfortable on RA. Last Vital Signs Temp Pulse Resp BP Pulse Ox 98.1 F 72 22 H 138/78 94 L 07/16/18 06:00 07/16/18 10:00 07/16/18 10:00 07/16/18 10:00 07/16/18 09:00 HEENT - Atraumatic/Normocephalic Heart - S1, S2, soft SM Lungs - decreased air entry bibasally R>L with R sided crackles. Abdomen - Soft, non-tender. Bowel Sounds normal. Extremities - Some bilateral LE edema (chronic with skin changes), no calf tenderness Neuro - AAO x 3. Tone/Power normal all extremities. Laboratory Results - last 24 hr 07/16/18 07/16/18 07/16/18 05:30 05:30 05:30 WBC 6.5 RBC 3.56 L Hgb 8.7 L Hct 27.7 L MCV 77.7 L MCH 24.4 L MCHC 31.3 L RDW 20.8 H Plt Count 216 MPV 8.5 PTT (Actin FS) 46.1 H Sodium 145 Potassium 4.1 Chloride 108 H Carbon Dioxide 30 Anion Gap 8 BUN 29 H Creatinine 1.3 Creat Clearance w eGFR 38.57 Random Glucose 93 Calcium 8.8 Phosphorus 3.1 Magnesium 1.9 Total Bilirubin 1.3 H AST 24 ALT 26 Alkaline Phosphatase 192 H Total Protein 5.7 L Albumin 2.8 L Current Medications Generic Name Dose Route Start Last Admin Trade Name Freq PRN Reason Stop Dose Admin Albuterol/Ipratropium 1 amp 07/16/18 12:00 Duoneb - NEB RQID NOEMÍ Allopurinol 100 mg 07/16/18 10:00 Zyloprim - PO DAILY NOEMÍ Artificial Tears 1 drop 07/16/18 09:02 Artificial Tears OU BID PRN FOR ITCHING Atorvastatin Calcium 20 mg 07/16/18 22:00 Lipitor - PO HS [facility] Cholecalciferol 400 unit 07/16/18 10:00 Vitamin D3 - PO DAILY NOEMÍ Diltiazem HCl 180 mg 07/16/18 10:00 Cardizem Cd - PO DAILY NOEMÍ Ferrous Gluconate 324 mg 07/16/18 10:00 Fergon - PO DAILY NOEMÍ Furosemide 40 mg 07/16/18 14:00 Lasix Injection - IVPUSH BIDLASIX NOEMÍ Heparin Sodium (Porcine) 1,000 unit 07/16/18 09:02 Heparin - IVPUSH PRN PRN Heparin Heparin Sodium (Porcine) 25, 500 mls @ 20 mls/hr 07/16/18 10:00 000 unit/ Sodium Chloride IV TITR NOEMÍ Protocol 1,000 UNIT/HR Magnesium Oxide 400 mg 07/16/18 10:00 Mag-Ox - PO BID NOEMÍ Metoprolol Succinate 150 mg 07/16/18 10:00 Toprol Xl - PO BID NOEMÍ Valsartan 320 mg 07/16/18 10:00 Diovan - PO DAILY [facility] ASSESSMENT AND PLAN: 88 year old female with history of Atrial Fibrillation on Eliquis, HTN, HLD, prior GI Bleed, Venous insufficiency with chronic lymphedema, Chronic diastolic CHF, presents after sustaining a fall at home, found to be dyspneic in ED. EKG - Afib, HR 108 Hip/pelvis CT, Xray- avascular necrosis of L femur, no fracture CT C spine and Head - negative for fracture or acute pathology. 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 BNP-2407.7 CXR- congestive features, cardiomegaly, R pleural effusion CT Chest - Large R pleural effusion with basilar atelectasis, mild thyromegaly. 1. Acute on Chronic Diastolic CHF with significant R pleural effusion. BNP elevated, congestion on CXR, R pleural effusion On IV Lasix diuresis. Normally on Torsemide at home - will resume once Cardiology agrees. Mild elevation in Troponin - flat, unlikely ACS given clinical picture - Cardiology following. Water restriction, daily weight, I/Os. Echo - normal EF. Moderate to Severe TR. Thoracentesis attempted 07/15 unsuccessfully - plan for pigtail catheter insertion 07/16. 2. Ambulatory Dysfunction s/p Fall Xray Hip/Pelvis/C-spine, Head - no acute fracture. PT 3. Transaminitis with Hyperbilirubinemia - possibly sec to hepatic congestion. Abdominal US demonstrates heterogenous Liver. Hepatitis panel negative AST/ALT normalized after holding statin. Wander still elevated at 1.3. AMA/ANA M/ASMA pending GI recommends MRCP - pending. If normal, will resume statin at lower dose. 4. 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 Further work-up as per GI, likely as out-patient. Already on Ferrous Gluconate. Received 1 dose IV Venofer. 5. Atrial Fibrillation - normally on Eliquis (held for pigtail insertion with heparin drip bridging) Continue Metoprolol and Diltiazem. Metoprolol dose increased to 150mg bid. 6. HTN - continue Metoprolol, Valsartan, Diltiazem 7. HLD - normally on Statin - held due to elevated LFTs. 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 For ortho outpatient eval. 9 . Venous insufficiency with chronic lymphedema - on lasix diuresis. 10. Thyromegaly on CT Chest. US Thyroid requested but apparently not performed as in-patient study at this facility. 11. Hypokalemia - repleted 12. CKD 3 -Stable. 13. 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 Carotid Doppler - moderate sized plaque with hemodynamically significant stenosis, previously declined intervention. Normally on Apixaban and Statin. 14. History of Gout - continue Allopurinol. DVT Px - Eliquis to resume after pigtail insertion.
[2018-07-16] MEDS: CHOLECALCIFEROL (VITAMIN D3) 400 UNIT TABLET (FP) PO SCH (11:30)
[2018-07-16] MEDS: ALLOPURINOL 100 MG TABLET (FP) PO SCH (11:31)
[2018-07-16] MEDS: MAGNESIUM OXIDE 400 MG TABLET (FP) PO SCH ×2 (11:32→22:04)
[2018-07-16] MEDS: VALSARTAN 160 MG TABLET (UD) PO SCH (11:32)
[2018-07-16] MEDS: FERROUS GLUCONATE 324 MG TAB (FP) PO SCH (11:32)
--- NOTE | 2018-07-16 11:41 | PN ---
Physical Exam: SUBJECTIVE: Patient seen and examined this AM. She says that she is feeling okay and is amenable to pigtail catheter placement for hopeful further drainage of fluid from her lungs. OBJECTIVE: Vital Signs Period Temp Pulse Resp BP Sys/Polk Pulse Ox Last 24 Hr 97.2 F-98.1 F 72-88 20-22 123-138/56-94 94-97 GENERAL: A&O, no acute distress HEAD: Normocephalic, atraumatic. EYES: PERRL, no scleral icterus EARS, NOSE, THROAT: oropharynx clear without exudates. Moist mucous membranes. NECK: supple without lymphadenopathy LUNGS: crackles throughout, decreased breath sounds in the right base HEART: Irregularly irregular, systolic murmur ABDOMEN: Soft, nontender to palpation, normoactive bowel sounds MUSCULOSKELETAL: No bony deformities or tenderness. EXTREMITIES: warm, well-perfused. 2+ pitting edema SKIN: Warm, dry, no rashes or lesions noted Laboratory Results - last 24 hr 07/16/18 07/16/18 07/16/18 05:30 05:30 05:30 WBC 6.5 RBC 3.56 L Hgb 8.7 L Hct 27.7 L MCV 77.7 L MCH 24.4 L MCHC 31.3 L RDW 20.8 H Plt Count 216 MPV 8.5 PTT (Actin FS) 46.1 H Sodium 145 Potassium 4.1 Chloride 108 H Carbon Dioxide 30 Anion Gap 8 BUN 29 H Creatinine 1.3 Creat Clearance w eGFR 38.57 Random Glucose 93 Calcium 8.8 Phosphorus 3.1 Magnesium 1.9 Total Bilirubin 1.3 H AST 24 ALT 26 Alkaline Phosphatase 192 H Total Protein 5.7 L Albumin 2.8 L Active Medications Generic Name Dose Route Start Last Admin Trade Name Freq PRN Reason Stop Dose Admin Albuterol/Ipratropium 1 amp 07/16/18 12:00 07/16/18 11:26 Duoneb - NEB 1 amp RQID NOEMÍ Administration Allopurinol 100 mg 07/16/18 10:00 07/16/18 11:31 Zyloprim - PO 100 mg DAILY NOEMÍ Administration Artificial Tears 1 drop 07/16/18 09:02 Artificial Tears OU BID PRN FOR ITCHING Atorvastatin Calcium 20 mg 07/16/18 22:00 Lipitor - PO [facility] Cholecalciferol 400 unit 07/16/18 10:00 07/16/18 11:30 Vitamin D3 - PO 400 unit DAILY NOEMÍ Administration Diltiazem HCl 180 mg 07/16/18 10:00 07/16/18 11:32 Cardizem Cd - PO 180 mg DAILY NOEMÍ Administration Ferrous Gluconate 324 mg 07/16/18 10:00 07/16/18 11:32 Fergon - PO 324 mg DAILY NOEMÍ Administration Furosemide 40 mg 07/16/18 14:00 Lasix Injection - IVPUSH BIDLASIX NOEMÍ Heparin Sodium (Porcine) 1,000 unit 07/16/18 09:02 Heparin - IVPUSH PRN PRN Heparin Heparin Sodium (Porcine) 25, 500 mls @ 20 mls/hr 07/16/18 10:00 07/16/18 11: 33 000 unit/ Sodium Chloride IV Not Given TITR [facility] Protocol 1,000 UNIT/HR Magnesium Oxide 400 mg 07/16/18 10:00 07/16/18 11:32 Mag-Ox - PO 400 mg BID NOEMÍ Administration Metoprolol Succinate 150 mg 07/16/18 10:00 07/16/18 11:31 Toprol Xl - PO 150 mg BID NOEMÍ Administration Valsartan 320 mg 07/16/18 10:00 07/16/18 11:32 Diovan - PO 320 mg DAILY NOEMÍ Administration ASSESSMENT/PLAN: Pt is an 88 yo F with PMHx of GI bleed, afib (on eliquis), HTN, HLD, venous insuff with chronic lymphedema, OA, CHF (diastolic), back pain presenting from home after a fall but found to be SOB. Acute on Chronic Diastolic CHF -b/l effusions noted, Large on right, small on left, atelectasis noted -Pulm consult appreciated -Cardiology consult appreciated -Thoracentesis today, send fluid for analysis and cytology -Elevated troponin though flat trend, No ischemic changes on EKG Transaminitis -Improving -RUQ US with heterogeneous liver -GI consult appreciated Fall -Denies LOC -CT noted without acute fracture or bleed -PT eval A-fib -Cardiology consult appreciated -Increase Toprol XL from 100 to 150 mg PO Daily -Can add cardizem if still elevated > 120 -Continue Cardizem, cardiology consideration appreciated -Lopressor 5 mg PO Q4 HTN -Diovan 320 mg PO Daily -Cardizem 180 mg PO Daily HLD -Lipitor 20 mg PO HS DVT Prophylaxis -Hold eliquis for pigtail catheter insertion, FEN -Fluids: none -Electrolytes: No electrolyte abnormalities, BMP in AM -Nutrition: Na controlled diet Disposition Telemetry Visit type - Emergency Visit Emergency Visit: Yes ED Registration Date: 07/12/18 Care time: The patient presented to the Emergency Department on the above date and was hospitalized for further evaluation of their emergent condition. - New Patient This patient is new to me today: No - Critical Care Critical Care patient: No
--- NOTE | 2018-07-16 11:41 | PN ---
Progress Note (short form) - Note Progress Note: History of Present Illness: feels better today, sob improved. no palps, dizziness, lightheadedness, cp Laboratory Last Values WBC 6.5 K/mm3 (4.0-10.0) 07/16/18 05:30 RBC 3.56 M/mm3 (3.60-5.2) L 07/16/18 05:30 Hgb 8.7 GM/dL (10.7-15.3) L 07/16/18 05:30 Hct 27.7 % (32.4-45.2) L 07/16/18 05:30 MCV 77.7 fl (80-96) L 07/16/18 05:30 MCH 24.4 pg (25.7-33.7) L 07/16/18 05:30 MCHC 31.3 g/dl (32.0-36.0) L 07/16/18 05:30 RDW 20.8 % (11.6-15.6) H 07/16/18 05:30 Plt Count 216 K/MM3 (134-434) 07/16/18 05:30 MPV 8.5 fl (7.5-11.1) 07/16/18 05:30 Absolute Neuts (auto) 7.0 K/mm3 (1.5-8.0) 07/13/18 05:30 Neutrophils % 78.0 % (42.8-82.8) 07/13/18 05:30 Lymphocytes % 12.0 % (8-40) 07/13/18 05:30 Monocytes % 9.5 % (3.8-10.2) 07/13/18 05:30 Eosinophils % 0.1 % (0-4.5) 07/13/18 05:30 Basophils % 0.4 % (0-2.0) 07/13/18 05:30 Nucleated RBC % 0 % (0-0) 07/13/18 05:30 Anisocytosis 1+ 07/12/18 12:47 Microcytosis 1+ 07/12/18 12:47 Ovalocytes 1+ 07/12/18 12:47 Acanthocytes (Spur) 1+ 07/12/18 12:47 PT with INR 19.50 SEC (9.7-13.0) H 07/14/18 03:40 INR 1.64 (0.83-1.09) H 07/14/18 03:40 PTT (Actin FS) 46.1 SECONDS (25.2-36.5) H 07/16/18 05:30 Sodium 145 mmol/L (136-145) 07/16/18 05:30 Potassium 4.1 mmol/L (3.5-5.1) 07/16/18 05:30 Chloride 108 mmol/L (98-107) H 07/16/18 05:30 Carbon Dioxide 30 mmol/L (21-32) 07/16/18 05:30 Anion Gap 8 MMOL/L (8-16) 07/16/18 05:30 BUN 29 mg/dL (7-18) H 07/16/18 05:30 Creatinine 1.3 mg/dL (0.55-1.3) 07/16/18 05:30 Creat Clearance w eGFR 38.57 (>60) 07/16/18 05:30 Random Glucose 93 mg/dL (74-106) 07/16/18 05:30 Hemoglobin A1c % 6.1 % (4.2-6.3) 07/13/18 05:30 Calcium 8.8 mg/dL (8.5-10.1) 07/16/18 05:30 Phosphorus 3.1 mg/dL (2.5-4.9) 07/16/18 05:30 Magnesium 1.9 mg/dL (1.8-2.4) 07/16/18 05:30 Iron 18 ug/dL (27-139) L 07/13/18 05:30 TIBC 365 ug/dL (250-450) 07/13/18 05:30 Iron Saturation 5 % (15-55) L 07/13/18 05:30 Ferritin 28.6 ng/ml (8-388) 07/13/18 05:30 Total Bilirubin 1.3 mg/dL (0.2-1) H 07/16/18 05:30 Direct Bilirubin 0.8 mg/dL (0.0-0.2) H 07/13/18 05:30 AST 24 U/L (15-37) 07/16/18 05:30 ALT 26 U/L (13-61) 07/16/18 05:30 Alkaline Phosphatase 192 U/L (45-117) H 07/16/18 05:30 LD Total 239 U/L (84-246) 07/15/18 05:30 Creatine Kinase 92 IU/L (26-192) 07/13/18 05:30 Creatine Kinase Index 2.2 % (0.0-5.0) 07/12/18 12:47 CK-MB (CK-2) 4.9 ng/mL (0.5-3.6) H 07/12/18 12:47 Troponin I 0.08 ng/ml (0.00-0.05) H 07/13/18 11:00 B-Natriuretic Peptide 2407.7 pg/ml (5-450) H 07/12/18 12:47 Total Protein 5.7 g/dl (6.4-8.2) L 07/16/18 05:30 Albumin 2.8 g/dl (3.4-5.0) L 07/16/18 05:30 Urine Color Yellow 07/12/18 16:50 Urine Appearance Clear 07/12/18 16:50 Urine pH 5.0 (5.0-8.0) 07/12/18 16:50 Ur Specific [place] 1.016 (1.010-1.035) 07/12/18 16:50 Urine Protein 2+ (NEGATIVE) H 07/12/18 16:50 Urine Glucose (UA) Negative (NEGATIVE) 07/12/18 16:50 Urine Ketones Negative (NEGATIVE) 07/12/18 16:50 Urine Blood Negative (NEGATIVE) 07/12/18 16:50 Urine Nitrite Negative (NEGATIVE) 07/12/18 16:50 Urine Bilirubin Negative (<2.0 mg/dL) 07/12/18 16:50 Urine Urobilinogen Negative mg/dL (0.2-1.0) 07/12/18 16:50 Ur Leukocyte Esterase 2+ (NEGATIVE) H 07/12/18 16:50 Urine WBC (Auto) 1 /hpf (3-5) 07/12/18 16:50 Urine RBC (Auto) 1 /hpf (0-3) 07/12/18 16:50 Ur Epithelial Cells Rare /HPF (FEW) 07/12/18 16:50 Hyaline Casts 10 /lpf 07/12/18 16:50 Urine Mucus Rare 07/12/18 16:50 Hepatitis A IgM Ab Negative (Negative) 07/13/18 16:00 Hep Bs Antigen Negative (Negative) 07/13/18 16:00 Hep B Core IgM Ab Negative (Negative) 07/13/18 16:00 Hepatitis C Antibody 0.1 s/co ratio (0.0-0.9) 07/13/18 16:00 Vital Signs: Vital Signs Period Temp Pulse Resp BP Sys/Polk Pulse Ox Last 24 Hr 97.2 F-98.1 F 72-88 20-22 123-138/56-94 94-97 Constitutional: Yes: Well Nourished, No Distress Eyes: No: Sclera Icterus Respiratory: Yes: Diminished (R lower half). No: Accessory Muscle Use, Rales, Wheezes Gastrointestinal: Yes: Normal Bowel Sounds. No: Distention, Hepatomegaly, Palpable Mass, Tenderness Cardiovascular: Yes: Pulse Irregular JVD: Yes Heart Sounds: Yes: S1, S2. No: Gallop Murmur: No: Systolic Murmur, Diastolic Murmur Extremities: No: Cold, Cyanosis Edema: Yes (1+ pretib) Peripheral Pulses: 2+ Left Carotid, 2+ Right Carotid, 2+ Left Doralis Pedis, 2+ Right Dorsalis Pedis Integumentary: No: Jaundice Neurological: Yes: Alert, Oriented (x3) Psychiatric: No: Agitated Assessment/Plan ECG: afib, PVC. baseline wander artifact. NSTWAs diffusely--unchanged vs prior CT chest: large R effusion, small L. no pulm edema described Echo 02/14: ([facility]): LV not well seen. RV ??. mild (AV not well seen). mod-sev MR and TR. RVSP 40-50. Echo 06/2017: nl lv fn. mod rve. rv sys function moderately reduced. mild MR, mod TR. sev phtn. trivial pericardial effusion. Echo 2016: low-nl EF 50-55% (beat to beat variability). mod RV dilation, borderline depressed RV fxn. 1+ /MR, Mod TR, mod pHTN (avg TR 42 mmHg), Cath 2006: LVEDP 18, EF 60%. pRCA mild, pLAD mild, mLAD 50-60%, pLCx mild, OM1 mild. CT head: R occipital lobe infarct, likely old Carotid sono 2018: rt common carotid with mod plaque 50-69%. moderate plaque on left with borderline stenosis. 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 - ++ JVD on exam, with increase in abdomen distension and LE edema at home of late. - large R pleural effusion on CT scan (new vs 02/14 CXR)--? HF etiology? - suspect Afib HR control may be important in optimizing HF status (though may all be secondary to high filling pressures)--as disc'd - digoxin for RV inotropy previously given, not on recent office med list (not given here) - home meds: metoprolol 100 BID, diltiazem ER 180 qd, losartan 100 qd, torsemide 10 qd - consider add spironolactone as outpt, if cannot tolerate higher doses torsemide - 07/14- Cr stable, sob improving, still with JVD/le edema, weight down on lasix 40 mg IV BID, continue - trend Cr, lytes, daily standing weight - planned pigtail catheter for R pleural effusion today Afib - rate controlled with metoprolol and diltiazem during last admit here - dig off as of 04/16 office list (also given for RV inotropy in past)--? toxic levels. defer this med at this time - diltiazem may cause further suppression of RV contractility and worsen right sided HF--pt could consider AVN ablation and PM as an alternate treatment, vs amio--will defer this discussion to outpt setting since it is an elective, long- term issue if she otherwise remains stable from chf standpoint - increase metopr to 150 bid - cont dilitazem for now as doing - previously was off AC due to h/o GI bleed/duodenal ulcer and pt deferred f/u with GI - old infarct noted on CT head last time here--Eliquis 2.5 bid started subsequently - holding eliquis now for pigtail catheter, on heparin gtt elev troponin: - intermediate range not diagnostic of myocardial injury (in absence of clinical picture suspicious), flat trend not c/w ACS. - ECG non-ischemic -con't ASA, hold statin while with ck elevation/borderline rhabdo. CKD: -baseline creat 1.0-1.5 -renal fxn stable here HTN: -BP elevated -observe trend with admin of AVN blockers and ARB today -low threshold to add spironolactone (if labs stable) carotid atherosclerosis, - previously declined further imaging w/u as outpt - con't asa, statin prior tx plan
--- NOTE | 2018-07-16 12:59 | PN ---
Progress Note (short form) - Note Progress Note: PULMONARY States breathing slightly improved. Unsuccessful thoracentesis yesterday. Vital Signs Period Temp Pulse Resp BP Sys/Polk Pulse Ox Last 24 Hr 97.2 F-98.1 F 72-88 20-22 123-138/56-94 94-97 Intake & Output 07/13/18 07/14/18 07/15/18 07/16/18 23:59 23:59 23:59 23:59 Intake Total 200 701 467 Balance 200 701 467 Weight 92.125 kg 91.626 kg 90.809 kg 90.174 kg Gen: mildly tachypneic with exertion Heart: RRR Lung: decreased breath sounds at the bases R>L Abd: soft, nontender Ext: + edema CBC, BMP 07/16/18 05:30 07/16/18 05:30 Active Medications Albuterol/Ipratropium (Duoneb -) 1 amp NEB RQID [facility] Last Admin: 07/16/18 11:26 Dose: 1 amp Allopurinol (Zyloprim -) 100 mg PO DAILY [facility] Last Admin: 07/16/18 11:31 Dose: 100 mg Artificial Tears (Artificial Tears) 1 drop OU BID PRN PRN Reason: FOR ITCHING Atorvastatin Calcium (Lipitor -) 20 mg PO HS [facility] Cholecalciferol (Vitamin D3 -) 400 unit PO DAILY [facility] Last Admin: 07/16/18 11:30 Dose: 400 unit Diltiazem HCl (Cardizem Cd -) 180 mg PO DAILY [facility] Last Admin: 07/16/18 11:32 Dose: 180 mg Ferrous Gluconate (Fergon -) 324 mg PO DAILY [facility] Last Admin: 07/16/18 11:32 Dose: 324 mg Furosemide (Lasix Injection -) 40 mg IVPUSH BIDLASIX [facility] Heparin Sodium (Porcine) (Heparin -) 1,000 unit IVPUSH PRN PRN PRN Reason: Heparin Heparin Sodium (Porcine) 25, (000 unit/ Sodium Chloride) 500 mls @ 20 mls/hr IV TITR [facility]; Protocol Last Admin: 07/16/18 11:33 Dose: Not Given Magnesium Oxide (Mag-Ox -) 400 mg PO BID [facility] Last Admin: 07/16/18 11:32 Dose: 400 mg Metoprolol Succinate (Toprol Xl -) 150 mg PO BID [facility] Last Admin: 07/16/18 11:31 Dose: 150 mg Valsartan (Diovan -) 320 mg PO DAILY [facility] Last Admin: 07/16/18 11:32 Dose: 320 mg A/P Acute on Chronic Diastolic Heart Failure Pleural Effusions R>L Atrial Fibrillation Pulmonary HTN HTN Anemia - for right sided pigtail catheter placement - f/u pleural fluid studies - continue lasix - monitor urine output, creatinine - O2 to keep Spo2 >90% - rate control - resume anticoagulation s/p pigtail placement
[2018-07-16 17:28] LABS: INR 1.25 (0.83-1.09); PROTHROMBIN TIME (PATIENT) 14.8 SEC (9.7-13.0)
[2018-07-16 17:31] LABS: ACTIVATED PTT 32.4 SECONDS (25.2-36.5)
[2018-07-16 17:43] LABS: BF WBC & OTHER NUCLEATED CELLS 476 /mm3
[2018-07-16 19:47] LABS: BODY FLUID MACROPHAGES 55 %
[2018-07-16 19:49] LABS: BODY FLUID MESOTHELIAL 20 %
[2018-07-16] MEDS: ATORVASTATIN CA 20 MG TABLET (FP) PO SCH (22:04)
[2018-07-16] MEDS: APIXABAN 2.5 MG TABLET PO SCH (22:04)
[2018-07-17] MEDS: FUROSEMIDE 40 MG/4 ML INJECTABLE VIAL IVPUSH SCH ×2 (06:21→13:34)
[2018-07-17 07:53] LABS: HEMATOCRIT 29.4 % (32.4-45.2); HEMOGLOBIN 9.2 GM/dL (10.7-15.3); MCH 24.2 pg (25.7-33.7); MCHC 31.4 g/dl (32.0-36.0); MEAN CELL VOLUME 77.3 fl (80-96); MEAN PLT VOLUME 8.4 fl (7.5-11.1); PLATELET COUNT 224 K/MM3 (134-434); RDW 20.4 % (11.6-15.6); WHITE BLOOD COUNT 7.5 K/mm3 (4.0-10.0)
[2018-07-17 08:20] LABS: ANION GAP 3 MMOL/L (8-16); BLOOD UREA NITROGEN 30 mg/dL (7-18); CALCIUM 8.9 mg/dL (8.5-10.1); CHLORIDE 103 mmol/L (98-107); CO2 34 mmol/L (21-32); CREATININE 1.3 mg/dL (0.55-1.3); GLUCOSE,RANDOM 102 mg/dL (74-106); MAGNESIUM 2.1 mg/dL (1.8-2.4); PHOSPHOROUS 3.4 mg/dL (2.5-4.9); POTASSIUM 4.2 mmol/L (3.5-5.1); SODIUM 141 mmol/L (136-145)
[2018-07-17] MEDS: ALBUTEROL SO4 2.5/IPRATROPIUM 0.5 INH SOL 3 ML VIAL.NEB. NEB SCH ×4 (08:43→21:25)
--- NOTE | 2018-07-17 11:07 | PN ---
Progress Note (short form) - Note Progress Note: History of Present Illness: feels better today, sob improved. no palps, dizziness, lightheadedness, cp Current Medications Generic Name Dose Route Start Last Admin Trade Name Freq PRN Reason Stop Dose Admin Albuterol/Ipratropium 1 amp 07/16/18 12:00 07/17/18 08:43 Duoneb - NEB 1 amp RQID NOEMÍ Administration Allopurinol 100 mg 07/16/18 10:00 07/16/18 11:31 Zyloprim - PO 100 mg DAILY NOEMÍ Administration Apixaban 2.5 mg 07/16/18 22:00 07/16/18 22:04 Eliquis - PO 2.5 mg BID NOEMÍ Administration Artificial Tears 1 drop 07/16/18 09:02 Artificial Tears OU BID PRN FOR ITCHING Atorvastatin Calcium 20 mg 07/16/18 22:00 07/16/18 22:04 Lipitor - PO 20 mg HS NOEMÍ Administration Cholecalciferol 400 unit 07/16/18 10:00 07/16/18 11:30 Vitamin D3 - PO 400 unit DAILY NOEMÍ Administration Diltiazem HCl 180 mg 07/16/18 10:00 07/16/18 11:32 Cardizem Cd - PO 180 mg DAILY NOEMÍ Administration Ferrous Gluconate 324 mg 07/16/18 10:00 07/16/18 11:32 Fergon - PO 324 mg DAILY NOEMÍ Administration Furosemide 40 mg 07/16/18 14:00 07/17/18 06:21 Lasix Injection - IVPUSH 40 mg BIDLASIX NOEMÍ Administration Magnesium Oxide 400 mg 07/16/18 10:00 07/16/18 22:04 Mag-Ox - PO 400 mg BID NOEMÍ Administration Metoprolol Succinate 150 mg 07/16/18 10:00 07/16/18 22:04 Toprol Xl - PO 150 mg BID NOEMÍ Administration Valsartan 320 mg 07/16/18 10:00 07/16/18 11:32 Diovan - PO 320 mg DAILY NOEMÍ Administration Vital Signs: Vital Signs Period Temp Pulse Resp BP Sys/Polk Pulse Ox Last 24 Hr 98.1 F 82-93 20-20 113-132/58-68 91-98 Constitutional: Yes: Well Nourished, No Distress Eyes: No: Sclera Icterus Respiratory: Yes: Diminished (R lower half). No: Accessory Muscle Use, Rales, Wheezes Gastrointestinal: Yes: Normal Bowel Sounds. No: Distention, Hepatomegaly, Palpable Mass, Tenderness Cardiovascular: Yes: Pulse Irregular JVD: Yes Heart Sounds: Yes: S1, S2. No: Gallop Murmur: No: Systolic Murmur, Diastolic Murmur Extremities: No: Cold, Cyanosis Edema: Yes (1+ pretib) Peripheral Pulses: 2+ Left Carotid, 2+ Right Carotid, 2+ Left Doralis Pedis, 2+ Right Dorsalis Pedis Integumentary: No: Jaundice Neurological: Yes: Alert, Oriented (x3) Psychiatric: No: Agitated Assessment/Plan ECG: afib, PVC. baseline wander artifact. NSTWAs diffusely--unchanged vs prior CT chest: large R effusion, small L. no pulm edema described Echo 02/14: ([facility]): LV not well seen. RV ??. mild (AV not well seen). mod-sev MR and TR. RVSP 40-50. Echo 06/2017: nl lv fn. mod rve. rv sys function moderately reduced. mild MR, mod TR. sev phtn. trivial pericardial effusion. Echo 2016: low-nl EF 50-55% (beat to beat variability). mod RV dilation, borderline depressed RV fxn. 1+ /MR, Mod TR, mod pHTN (avg TR 42 mmHg), Cath 2005: LVEDP 18, EF 60%. pRCA mild, pLAD mild, mLAD 50-60%, pLCx mild, OM1 mild. CT head: R occipital lobe infarct, likely old Carotid sono 2018: rt common carotid with mod plaque 50-69%. moderate plaque on left with borderline stenosis. 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 - ++ JVD on exam, with increase in abdomen distension and LE edema at home of late. - large R pleural effusion on CT scan (new vs 02/14 CXR)--? HF etiology? - suspect Afib HR control may be important in optimizing HF status (though may all be secondary to high filling pressures)--as disc'd - digoxin for RV inotropy previously given, not on recent office med list (not given here) - home meds: metoprolol 100 BID, diltiazem ER 180 qd, losartan 100 qd, torsemide 10 qd - consider add spironolactone as outpt, if cannot tolerate higher doses torsemide - 07/14-: Cr stable, sob improving, still with JVD/le edema, weight down on lasix 40 mg IV BID, continue - trend Cr, lytes, daily standing weight - s/p pigtail catheter for R pleural effusion 07/16 Afib - rate controlled with metoprolol and diltiazem during last admit here - dig off as of 04/16 office list (also given for RV inotropy in past)--? toxic levels. defer this med at this time - diltiazem may cause further suppression of RV contractility and worsen right sided HF--pt could consider AVN ablation and PM as an alternate treatment, vs amio--will defer this discussion to outpt setting since it is an elective, long- term issue if she otherwise remains stable from chf standpoint - cont metoprolol - cont diltiazem - previously was off AC due to h/o GI bleed/duodenal ulcer and pt deferred f/u with GI - old infarct noted on CT head last time here--Eliquis 2.5 bid started subsequently - cont eliquis elev troponin: - intermediate range not diagnostic of myocardial injury (in absence of clinical picture suspicious), flat trend not c/w ACS. - ECG non-ischemic -con't ASA, hold statin while with ck elevation/borderline rhabdo. CKD: -baseline creat 1.0-1.5 -renal fxn stable here HTN: -cont current meds carotid atherosclerosis, - previously declined further imaging w/u as outpt - con't asa, statin prior tx plan
[2018-07-17] MEDS: VALSARTAN 160 MG TABLET (UD) PO SCH (11:16)
[2018-07-17] MEDS: MAGNESIUM OXIDE 400 MG TABLET (FP) PO SCH ×2 (11:17→21:28)
[2018-07-17] MEDS: FERROUS GLUCONATE 324 MG TAB (FP) PO SCH (11:17)
[2018-07-17] MEDS: APIXABAN 2.5 MG TABLET PO SCH ×2 (11:17→21:28)
[2018-07-17] MEDS: ALLOPURINOL 100 MG TABLET (FP) PO SCH (11:18)
[2018-07-17] MEDS: CHOLECALCIFEROL (VITAMIN D3) 400 UNIT TABLET (FP) PO SCH (11:18)
--- NOTE | 2018-07-17 11:38 | PN ---
Progress Note, Physician History of Present Illness: PULMONARY ALERT,COMFORTABLE,-RESP DISTRESS. PIGTAIL CATH STILL DRAINING APPROX 440 CC SO FAR TODAY - Current Medication List Current Medications: Active Medications Albuterol/Ipratropium (Duoneb -) 1 amp NEB RQID [facility] Last Admin: 07/17/18 08:43 Dose: 1 amp Allopurinol (Zyloprim -) 100 mg PO DAILY [facility] Last Admin: 07/17/18 11:18 Dose: 100 mg Apixaban (Eliquis -) 2.5 mg PO BID [facility] Last Admin: 07/17/18 11:17 Dose: 2.5 mg Artificial Tears (Artificial Tears) 1 drop OU BID PRN PRN Reason: FOR ITCHING Atorvastatin Calcium (Lipitor -) 20 mg PO HS [facility] Last Admin: 07/16/18 22:04 Dose: 20 mg Cholecalciferol (Vitamin D3 -) 400 unit PO DAILY [facility] Last Admin: 07/17/18 11:18 Dose: 400 unit Diltiazem HCl (Cardizem Cd -) 180 mg PO DAILY [facility] Last Admin: 07/17/18 11:16 Dose: 180 mg Ferrous Gluconate (Fergon -) 324 mg PO DAILY [facility] Last Admin: 07/17/18 11:17 Dose: 324 mg Furosemide (Lasix Injection -) 40 mg IVPUSH BIDLASIX [facility] Last Admin: 07/17/18 06:21 Dose: 40 mg Magnesium Oxide (Mag-Ox -) 400 mg PO BID [facility] Last Admin: 07/17/18 11:17 Dose: 400 mg Metoprolol Succinate (Toprol Xl -) 150 mg PO BID [facility] Last Admin: 07/17/18 11:18 Dose: 150 mg Valsartan (Diovan -) 320 mg PO DAILY [facility] Last Admin: 07/17/18 11:16 Dose: 320 mg - Objective Vital Signs: Vital Signs Temperature 97.5 F L 07/17/18 09:42 Pulse Rate 93 H 07/17/18 09:42 Respiratory Rate 20 07/17/18 09:42 Blood Pressure 116/66 07/17/18 09:42 O2 Sat by Pulse Oximetry (%) 98 07/17/18 09:00 Constitutional: Yes: Well Nourished, Calm Eyes: Yes: WNL HENT: Yes: WNL Neck: Yes: WNL Cardiovascular: Yes: Pulse Irregular, S1, S2 Respiratory: Yes: Diminished Gastrointestinal: Yes: Normal Bowel Sounds, Soft Extremities: Yes: WNL Edema: Yes Labs: CBC, BMP 07/17/18 06:45 07/17/18 06:45 INR, PTT INR 1.25 (0.83-1.09) H 07/16/18 16:30 Problem List - Problems (1) Pulmonary HTN Code(s): I27.20 - PULMONARY HYPERTENSION, UNSPECIFIED (2) Diastolic CHF, acute on chronic Code(s): I50.33 - ACUTE ON CHRONIC DIASTOLIC (CONGESTIVE) HEART FAILURE (3) Acquired lymphedema of leg Code(s): I89.0 - LYMPHEDEMA, NOT ELSEWHERE CLASSIFIED (4) Atrial fibrillation Code(s): I48.91 - UNSPECIFIED ATRIAL FIBRILLATION Qualifiers: Atrial fibrillation type: paroxysmal Qualified Code(s): I48.0 - Paroxysmal atrial fibrillation (5) HTN (hypertension) Code(s): I10 - ESSENTIAL (PRIMARY) HYPERTENSION (6) Hyperlipidemia Code(s): E78.5 - HYPERLIPIDEMIA, UNSPECIFIED (7) Pleural effusion Code(s): J90 - PLEURAL EFFUSION, NOT ELSEWHERE CLASSIFIED (8) Shortness of breath Code(s): R06.02 - SHORTNESS OF BREATH Assessment/Plan IMP ACUTE ON CHRONIC CHF IMPROVING DYSPNEA IMPROVING S/P FALL BILATERAL PLEURAL EFFUSIONS R>L AFIB PULMONARY HTN HTN ANEMIA PLAN LASIX O2 DAILY WTS INHALED BRONCHODILATORS F/U CHEST X-RAYS MONITOR CHEST TUBE DRAINAGE CHECK RESULTS OF PLEUAAL FLUID CHEMISTRIES AC MONITOR LYTES,H+H DR AJ Problem List - Problems (1) Pulmonary HTN Code(s): I27.20 - PULMONARY HYPERTENSION, UNSPECIFIED (2) Diastolic CHF, acute on chronic Code(s): I50.33 - ACUTE ON CHRONIC DIASTOLIC (CONGESTIVE) HEART FAILURE (3) Acquired lymphedema of leg Code(s): I89.0 - LYMPHEDEMA, NOT ELSEWHERE CLASSIFIED (4) Atrial fibrillation Code(s): I48.91 - UNSPECIFIED ATRIAL FIBRILLATION Qualifiers: Atrial fibrillation type: paroxysmal Qualified Code(s): I48.0 - Paroxysmal atrial fibrillation (5) HTN (hypertension) Code(s): I10 - ESSENTIAL (PRIMARY) HYPERTENSION (6) Hyperlipidemia Code(s): E78.5 - HYPERLIPIDEMIA, UNSPECIFIED (7) Pleural effusion Code(s): J90 - PLEURAL EFFUSION, NOT ELSEWHERE CLASSIFIED (8) Shortness of breath Code(s): R06.02 - SHORTNESS OF BREATH
--- NOTE | 2018-07-17 12:15 | PN ---
Teaching Attending Note Name of Resident: Louie Rubio ATTENDING PHYSICIAN STATEMENT I saw and evaluated the patient. I reviewed the resident's note and discussed the case with the resident. I agree with the resident's findings and plan as documented. SUBJECTIVE: Dyspnea improved. No fever/chills. OBJECTIVE: Afebrile/hemodynamically Stable. R pigtail in place still draining. Last Vital Signs Temp Pulse Resp BP Pulse Ox 97.5 F L 93 H 20 116/66 98 07/17/18 09:42 07/17/18 09:42 07/17/18 09:42 07/17/18 09:42 07/17/18 09:00 HEENT - Atraumatic/Normocephalic Heart - S1, S2, soft SM Lungs - decreased air entry bibasally R>L with R sided crackles and pigtail in place. Abdomen - Soft, non-tender. Bowel Sounds normal. Extremities - Some bilateral LE edema (chronic with skin changes), no calf tenderness Neuro - AAO x 3. Tone/Power normal all extremities. Laboratory Results - last 24 hr 07/16/18 07/16/18 07/17/18 15:00 16:30 06:45 WBC RBC Hgb Hct MCV MCH MCHC RDW Plt Count MPV PT with INR 14.80 H INR 1.25 H PTT (Actin FS) 32.4 Sodium 141 Potassium 4.2 Chloride 103 Carbon Dioxide 34 H Anion Gap 3 L BUN 30 H Creatinine 1.3 Creat Clearance w eGFR 38.57 Random Glucose 102 Calcium 8.9 Phosphorus 3.4 Magnesium 2.1 Fluid Source Pleural Fluid WBC 476 Fluid RBC 5107 Fluid Neutrophils 5 Fluid Lymphocytes 20 Pleural Macrophages 55 Pleural Mesothelial 20 07/17/18 07/17/18 06:45 06:45 WBC 7.5 RBC 3.80 Hgb 9.2 L Hct 29.4 L MCV 77.3 L MCH 24.2 L MCHC 31.4 L RDW 20.4 H Plt Count 224 MPV 8.4 PT with INR INR PTT (Actin FS) 84.9 H Sodium Potassium Chloride Carbon Dioxide Anion Gap BUN Creatinine Creat Clearance w eGFR Random Glucose Calcium Phosphorus Magnesium Fluid Source Fluid WBC Fluid RBC Fluid Neutrophils Fluid Lymphocytes Pleural Macrophages Pleural Mesothelial Current Medications Generic Name Dose Route Start Last Admin Trade Name Freq PRN Reason Stop Dose Admin Albuterol/Ipratropium 1 amp 07/16/18 12:00 07/17/18 08:43 Duoneb - NEB 1 amp RQID NOEMÍ Administration Allopurinol 100 mg 07/16/18 10:00 07/17/18 11:18 Zyloprim - PO 100 mg DAILY NOEMÍ Administration Apixaban 2.5 mg 07/16/18 22:00 07/17/18 11:17 Eliquis - PO 2.5 mg BID NOEMÍ Administration Artificial Tears 1 drop 07/16/18 09:02 Artificial Tears OU BID PRN FOR ITCHING Atorvastatin Calcium 20 mg 07/16/18 22:00 07/16/18 22:04 Lipitor - PO 20 mg HS NOEMÍ Administration Cholecalciferol 400 unit 07/16/18 10:00 07/17/18 11:18 Vitamin D3 - PO 400 unit DAILY NOEMÍ Administration Diltiazem HCl 180 mg 07/16/18 10:00 07/17/18 11:16 Cardizem Cd - PO 180 mg DAILY NOEMÍ Administration Ferrous Gluconate 324 mg 07/16/18 10:00 07/17/18 11:17 Fergon - PO 324 mg DAILY NOEMÍ Administration Furosemide 40 mg 07/16/18 14:00 07/17/18 06:21 Lasix Injection - IVPUSH 40 mg BIDLASIX NOEMÍ Administration Magnesium Oxide 400 mg 07/16/18 10:00 07/17/18 11:17 Mag-Ox - PO 400 mg BID NOEMÍ Administration Metoprolol Succinate 150 mg 07/16/18 10:00 07/17/18 11:18 Toprol Xl - PO 150 mg BID NOEMÍ Administration Valsartan 320 mg 07/16/18 10:00 07/17/18 11:16 Diovan - PO 320 mg DAILY NOEMÍ Administration ASSESSMENT AND PLAN: 88 year old female with history of Atrial Fibrillation on Eliquis, HTN, HLD, prior GI Bleed, Venous insufficiency with chronic lymphedema, Chronic diastolic CHF, presents after sustaining a fall at home, found to be dyspneic in ED. EKG - Afib, HR 108 Hip/pelvis CT, Xray- avascular necrosis of L femur, no fracture CT C spine and Head - negative for fracture or acute pathology. 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 BNP-2407.7 CXR- congestive features, cardiomegaly, R pleural effusion CT Chest - Large R pleural effusion with basilar atelectasis, mild thyromegaly. 1. Acute on Chronic Diastolic CHF with significant R pleural effusion s/p pigtail catheter drainage. BNP elevated On IV Lasix diuresis. Normally on Torsemide at home - will resume once Cardiology agrees. Mild elevation in Troponin - flat, unlikely ACS given clinical picture - Cardiology following. Water restriction, daily weight, I/Os. Echo - normal EF. Moderate to Severe TR. Thoracentesis attempted 07/15 unsuccessfully - pigtail catheter insertion 07/16, still draining. Pleural fluid studies still pending. 2. Ambulatory Dysfunction s/p Fall Xray Hip/Pelvis/C-spine, Head - no acute fracture. PT 3. Transaminitis with Hyperbilirubinemia - possibly sec to hepatic congestion. Abdominal US demonstrates heterogenous Liver. Hepatitis panel negative AST/ALT normalized after holding statin. Wander still elevated at 1.3. AMA/ANA M/ASMA pending GI recommends MRCP - no gross abnormality, non-diagnostic sec to motion artifact , loculated pl effusion. 4. 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 Further work-up as per GI, likely as out-patient. Already on Ferrous Gluconate. Received 1 dose IV Venofer. 5. Atrial Fibrillation - resumed on Eliquis (held for pigtail insertion with heparin drip bridging) Continue Metoprolol and Diltiazem. Metoprolol dose increased to 150mg bid. 6. HTN - continue Metoprolol, Valsartan, Diltiazem 7. HLD - normally on Statin - held due to elevated LFTs, now normalized. 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 For ortho outpatient eval. 9 . Venous insufficiency with chronic lymphedema - on lasix diuresis. 10. Thyromegaly on CT Chest. US Thyroid requested but apparently not performed as in-patient study at this facility. 11. Hypokalemia - repleted 12. CKD 3 -Stable. 13. 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 Carotid Doppler - moderate sized plaque with hemodynamically significant stenosis, previously declined intervention. Normally on Apixaban and Statin. 14. History of Gout - continue Allopurinol. 15. UTI - Urine Cx positive for Lactose Fermenting neg Bacilli - will treat empirically with IV Ceftriaxone. DVT Px - Eliquis resumed after pigtail insertion.
--- NOTE | 2018-07-17 12:29 | PN ---
Physical Exam: SUBJECTIVE: Patient seen and examined this AM. She states she is doing better and that her breathing is improved following the catheter insertion and fluid drainage. OBJECTIVE: Vital Signs Period Temp Pulse Resp BP Sys/[place] Pulse Ox Last 24 Hr 97.5 F-98.1 F 82-93 20-20 113-132/58-68 91-98 GENERAL: A&O, no acute distress HEAD: Normocephalic, atraumatic. EYES: PERRL, no scleral icterus EARS, NOSE, THROAT: oropharynx clear without exudates. Moist mucous membranes. NECK: supple without lymphadenopathy LUNGS: crackles throughout, decreased breath sounds in the right base HEART: Irregularly irregular, systolic murmur ABDOMEN: Soft, nontender to palpation, normoactive bowel sounds MUSCULOSKELETAL: No bony deformities or tenderness. EXTREMITIES: warm, well-perfused. 2+ pitting edema SKIN: Warm, dry, no rashes or lesions noted Laboratory Results - last 24 hr 07/16/18 07/16/18 07/17/18 15:00 16:30 06:45 WBC RBC Hgb Hct MCV MCH MCHC RDW Plt Count MPV PT with INR 14.80 H INR 1.25 H PTT (Actin FS) 32.4 Sodium 141 Potassium 4.2 Chloride 103 Carbon Dioxide 34 H Anion Gap 3 L BUN 30 H Creatinine 1.3 Creat Clearance w eGFR 38.57 Random Glucose 102 Calcium 8.9 Phosphorus 3.4 Magnesium 2.1 Fluid Source Pleural Fluid WBC 476 Fluid RBC 5107 Fluid Neutrophils 5 Fluid Lymphocytes 20 Pleural Macrophages 55 Pleural Mesothelial 20 07/17/18 07/17/18 06:45 06:45 WBC 7.5 RBC 3.80 Hgb 9.2 L Hct 29.4 L MCV 77.3 L MCH 24.2 L MCHC 31.4 L RDW 20.4 H Plt Count 224 MPV 8.4 PT with INR INR PTT (Actin FS) 84.9 H Sodium Potassium Chloride Carbon Dioxide Anion Gap BUN Creatinine Creat Clearance w eGFR Random Glucose Calcium Phosphorus Magnesium Fluid Source Fluid WBC Fluid RBC Fluid Neutrophils Fluid Lymphocytes Pleural Macrophages Pleural Mesothelial Active Medications Generic Name Dose Route Start Last Admin Trade Name Freq PRN Reason Stop Dose Admin Albuterol/Ipratropium 1 amp 07/16/18 12:00 07/17/18 12:10 Duoneb - NEB 1 amp RQID NOEMÍ Administration Allopurinol 100 mg 07/16/18 10:00 07/17/18 11:18 Zyloprim - PO 100 mg DAILY NOEMÍ Administration Apixaban 2.5 mg 07/16/18 22:00 07/17/18 11:17 Eliquis - PO 2.5 mg BID NOEMÍ Administration Artificial Tears 1 drop 07/16/18 09:02 Artificial Tears OU BID PRN FOR ITCHING Atorvastatin Calcium 20 mg 07/16/18 22:00 07/16/18 22:04 Lipitor - PO 20 mg HS NOEMÍ Administration Cholecalciferol 400 unit 07/16/18 10:00 07/17/18 11:18 Vitamin D3 - PO 400 unit DAILY NOEMÍ Administration Diltiazem HCl 180 mg 07/16/18 10:00 07/17/18 11:16 Cardizem Cd - PO 180 mg DAILY NOEMÍ Administration Ferrous Gluconate 324 mg 07/16/18 10:00 07/17/18 11:17 Fergon - PO 324 mg DAILY NOEMÍ Administration Furosemide 40 mg 07/16/18 14:00 07/17/18 06:21 Lasix Injection - IVPUSH 40 mg BIDLASIX NOEMÍ Administration Ceftriaxone Sodium 1 gm/ 100 mls @ 200 mls/hr 07/17/18 12:30 Dextrose IVPB DAILY NOEMÍ Protocol Magnesium Oxide 400 mg 07/16/18 10:00 07/17/18 11:17 Mag-Ox - PO 400 mg BID NOEMÍ Administration Metoprolol Succinate 150 mg 07/16/18 10:00 07/17/18 11:18 Toprol Xl - PO 150 mg BID NOEMÍ Administration Valsartan 320 mg 07/16/18 10:00 07/17/18 11:16 Diovan - PO 320 mg DAILY NOEMÍ Administration ASSESSMENT/PLAN: Pt is an 88 yo F with PMHx of GI bleed, afib (on eliquis), HTN, HLD, venous insuff with chronic lymphedema, OA, CHF (diastolic), back pain presenting from home after a fall but found to be SOB. Acute on Chronic Diastolic CHF -b/l effusions noted, Large on right, small on left, atelectasis noted -Pulm consult appreciated -Cardiology consult appreciated -Thoracentesis, 1L drained thus far, fluid analysis pending UTI -Urine culture positive pending Lactose fermenting Gram neg Bacilli -Ceftriaxone 1 gm IV Daily empirically Transaminitis -Resolved -RUQ US with heterogeneous liver -GI consult appreciated Fall -Denies LOC -CT noted without acute fracture or bleed -PT eval A-fib -Cardiology consult appreciated -Increase Toprol XL from 100 to 150 mg PO Daily -Can add cardizem if still elevated > 120 -Continue Cardizem, cardiology consideration appreciated -Lopressor 5 mg PO Q4 HTN -Diovan 320 mg PO Daily -Cardizem 180 mg PO Daily HLD -Lipitor 20 mg PO HS DVT Prophylaxis -Eliquis 2.5 mg PO BID FEN -Fluids: none -Electrolytes: No electrolyte abnormalities, BMP in AM -Nutrition: Na controlled diet Disposition Telemetry Visit type - Emergency Visit Emergency Visit: Yes ED Registration Date: 07/12/18 Care time: The patient presented to the Emergency Department on the above date and was hospitalized for further evaluation of their emergent condition. - New Patient This patient is new to me today: No - Critical Care Critical Care patient: No
[2018-07-17] MEDS ORDERED: CEFTRIAXONE 1 GM in DEXTROSE 5%-WATER - 50 ML IVPB SCH (12:30)
[2018-07-17] MEDS ORDERED: cefTRIAXone SODIUM 1 GM VIAL ONE (13:09)
[2018-07-17] MEDS ORDERED: DEXTROSE 5%-WATER - 50 ML IVPB ONE (13:10)
[2018-07-17] MEDS: ATORVASTATIN CA 20 MG TABLET (FP) PO SCH (21:28)
[2018-07-18] MEDS: FUROSEMIDE 40 MG/4 ML INJECTABLE VIAL IVPUSH SCH (06:02)
[2018-07-18 06:48] LABS: HEMATOCRIT 28.4 % (32.4-45.2); HEMOGLOBIN 8.8 GM/dL (10.7-15.3); MCH 24.1 pg (25.7-33.7); MCHC 30.9 g/dl (32.0-36.0); MEAN PLT VOLUME 8.8 fl (7.5-11.1); PLATELET COUNT 210 K/MM3 (134-434); RBC 3.65 M/mm3 (3.60-5.2); RDW 20.9 % (11.6-15.6); WHITE BLOOD COUNT 9.1 K/mm3 (4.0-10.0)
[2018-07-18 07:29] LABS: ANION GAP 7 MMOL/L (8-16); BLOOD UREA NITROGEN 34 mg/dL (7-18); CALCIUM 8.3 mg/dL (8.5-10.1); CHLORIDE 103 mmol/L (98-107); CO2 32 mmol/L (21-32); CREATININE 1.4 mg/dL (0.55-1.3); GLUCOSE,RANDOM 106 mg/dL (74-106); POTASSIUM 4.2 mmol/L (3.5-5.1); SODIUM 142 mmol/L (136-145)
[2018-07-18] MEDS ORDERED: DEXTROSE 5%-WATER - 50 ML IVPB ONE (08:13)
[2018-07-18] MEDS ORDERED: cefTRIAXone SODIUM 1 GM VIAL ONE (08:13)
[2018-07-18] MEDS: ALBUTEROL SO4 2.5/IPRATROPIUM 0.5 INH SOL 3 ML VIAL.NEB. NEB SCH ×4 (08:40→20:30)
[2018-07-18] MEDS: CHOLECALCIFEROL (VITAMIN D3) 400 UNIT TABLET (FP) PO SCH (09:27)
[2018-07-18] MEDS: FERROUS GLUCONATE 324 MG TAB (FP) PO SCH (09:27)
[2018-07-18] MEDS: MAGNESIUM OXIDE 400 MG TABLET (FP) PO SCH ×2 (09:27→21:32)
[2018-07-18] MEDS: APIXABAN 2.5 MG TABLET PO SCH ×2 (09:28→21:32)
[2018-07-18] MEDS: VALSARTAN 160 MG TABLET (UD) PO SCH (09:28)
[2018-07-18] MEDS: ALLOPURINOL 100 MG TABLET (FP) PO SCH (09:28)
--- NOTE | 2018-07-18 09:29 | PN ---
Teaching Attending Note Name of Resident: Louie Rubio ATTENDING PHYSICIAN STATEMENT I saw and evaluated the patient. I reviewed the resident's note and discussed the case with the resident. I agree with the resident's findings and plan as documented. SUBJECTIVE: Dyspnea improved. No fever/chills. No discomfort at pigtail insertion site. OBJECTIVE: Afebrile/hemodynamically Stable. R pigtail in place still draining - 1250ml Last Vital Signs Temp Pulse Resp BP Pulse Ox 97.5 F L 87 20 134/59 L 98 07/18/18 07:39 07/18/18 07:39 07/18/18 07:39 07/18/18 07:39 07/18/18 07:38 HEENT - Atraumatic/Normocephalic. Eryhematous sclerae lower eyelids Heart - S1, S2, soft SM Lungs - decreased air entry bibasally R>L, pigtail in place. Abdomen - Soft, non-tender. Bowel Sounds normal. Extremities - Some bilateral LE edema (chronic with skin changes), no calf tenderness Neuro - AAO x 3. Tone/Power normal all extremities. Laboratory Results - last 24 hr 07/15/18 07/18/18 07/18/18 09:00 05:30 05:30 WBC 9.1 RBC 3.65 Hgb 8.8 L Hct 28.4 L MCV 78.0 L MCH 24.1 L MCHC 30.9 L RDW 20.9 H Plt Count 210 MPV 8.8 PTT (Actin FS) Sodium 142 Potassium 4.2 Chloride 103 Carbon Dioxide 32 Anion Gap 7 L BUN 34 H Creatinine 1.4 H Creat Clearance w eGFR 35.41 Random Glucose 106 Calcium 8.3 L ANA M Screen Positive H ANA M Homogeneous Pattern 1:80 ANA M Nucleolar Pattern TNP ANA M Spindle Florina Pattern TNP ANA M Midbody Pattern TNP ANA M Centriole Pattern TNP ANA M Nuclear Dot Pattern TNP ANA M PCNA Pattern TNP ANA M Nuclear Membr Pat TNP ANA M Speckled Pattern TNP ANA M Centromere Pattern TNP Smooth Musc &SOCK DRIER Intrp 11 07/18/18 05:30 WBC RBC Hgb Hct MCV MCH MCHC RDW Plt Count MPV PTT (Actin FS) 33.9 Sodium Potassium Chloride Carbon Dioxide Anion Gap BUN Creatinine Creat Clearance w eGFR Random Glucose Calcium ANA M Screen ANA M Homogeneous Pattern ANA M Nucleolar Pattern ANA M Spindle Florina Pattern ANA M Midbody Pattern ANA M Centriole Pattern ANA M Nuclear Dot Pattern ANA M PCNA Pattern ANA M Nuclear Membr Pat ANA M Speckled Pattern ANA M Centromere Pattern Smooth Musc &SOCK DRIER Intrp Current Medications Generic Name Dose Route Start Last Admin Trade Name Freq PRN Reason Stop Dose Admin Albuterol/Ipratropium 1 amp 07/16/18 12:00 07/17/18 21:25 Duoneb - NEB 1 amp RQID NOEMÍ Administration Allopurinol 100 mg 07/16/18 10:00 07/17/18 11:18 Zyloprim - PO 100 mg DAILY NOEMÍ Administration Apixaban 2.5 mg 07/16/18 22:00 07/17/18 21:28 Eliquis - PO 2.5 mg BID NOEMÍ Administration Artificial Tears 1 drop 07/16/18 09:02 Artificial Tears OU BID PRN FOR ITCHING Atorvastatin Calcium 20 mg 07/16/18 22:00 07/17/18 21:28 Lipitor - PO 20 mg HS NOEMÍ Administration Cholecalciferol 400 unit 07/16/18 10:00 07/17/18 11:18 Vitamin D3 - PO 400 unit DAILY NOEMÍ Administration Diltiazem HCl 180 mg 07/16/18 10:00 07/17/18 11:16 Cardizem Cd - PO 180 mg DAILY NOEMÍ Administration Ferrous Gluconate 324 mg 07/16/18 10:00 07/17/18 11:17 Fergon - PO 324 mg DAILY NOEMÍ Administration Meropenem 1 gm/ Dextrose 100 mls @ 200 mls/hr 07/18/18 10:00 IVPB 07/18/18 10:29 ONCE ONE Magnesium Oxide 400 mg 07/16/18 10:00 07/17/18 21:28 Mag-Ox - PO 400 mg BID NOEMÍ Administration Metoprolol Succinate 150 mg 07/16/18 10:00 07/17/18 21:28 Toprol Xl - PO 150 mg BID NOEMÍ Administration Valsartan 320 mg 07/16/18 10:00 07/17/18 11:16 Diovan - PO 320 mg DAILY NOEMÍ Administration ASSESSMENT AND PLAN: 88 year old female with history of Atrial Fibrillation on Eliquis, HTN, HLD, prior GI Bleed, Venous insufficiency with chronic lymphedema, Chronic diastolic CHF, presents after sustaining a fall at home, found to be dyspneic in ED. EKG - Afib, HR 108 Hip/pelvis CT, Xray- avascular necrosis of L femur, no fracture CT C spine and Head - negative for fracture or acute pathology. 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 BNP-2407.7 CXR- congestive features, cardiomegaly, R pleural effusion CT Chest - Large R pleural effusion with basilar atelectasis, mild thyromegaly. 1. Acute on Chronic Diastolic CHF with significant R pleural effusion s/p pigtail catheter drainage. BNP elevated on presentation Managed with IV Lasix diuresis, now held due to up-trending Creat. Normally on Torsemide at home - will resume once Creatinine normalizes. Mild elevation in Troponin - flat, unlikely ACS given clinical picture - Cardiology following. Water restriction, daily weight, I/Os. Echo - normal EF. Moderate to Severe TR. Thoracentesis attempted 07/15 unsuccessfully - pigtail catheter insertion 07/16, drained 1250ml so far with symptomatic improvement. Pleural fluid studies still pending. 2. Ambulatory Dysfunction s/p Fall Xray Hip/Pelvis/C-spine, Head - no acute fracture. PT 3. Transaminitis with Hyperbilirubinemia - possibly sec to hepatic congestion. Abdominal US demonstrates heterogenous Liver. Hepatitis panel negative AST/ALT normalized after holding statin. Wander still elevated at 1.3. ANA M pos. AMA/ASMA pending GI recommended MRCP - no gross abnormality, non-diagnostic sec to motion artifact, loculated pl effusion. Further recs as per GI. 4. 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 Further work-up as per GI, likely as out-patient. Already on Ferrous Gluconate. Received 1 dose IV Venofer. 5. Atrial Fibrillation - resumed on Eliquis (held for pigtail insertion with heparin drip bridging) Continue Metoprolol (at increased dose of 150mg bid) and Diltiazem. 6. HTN - continue Metoprolol, Valsartan, Diltiazem 7. HLD - normally on Statin - held due to elevated LFTs, now normalized. 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 For ortho outpatient eval. 9 . Venous insufficiency with chronic lymphedema - normally on Torsemide at home. 10. Thyromegaly on CT Chest. US Thyroid requested but apparently not performed as in-patient study at this facility. 11. Hypokalemia - repleted 12. CKD 3 -Stable. 13. 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 Carotid Doppler - moderate sized plaque with hemodynamically significant stenosis, previously declined intervention. Normally on Apixaban and Statin. 14. History of Gout - continue Allopurinol. 15. UTI - ESBL - Ceftriaxone changed to Meropenem 07/18/18. ID consulted. DVT Px - on Eliquis
--- NOTE | 2018-07-18 09:30 | PN ---
Physical Exam: SUBJECTIVE: Patient seen and examined this AM. She states she she is feeling okay but expresses frustration that her food was brought but noone ever helped her get set up to eat it and now it is all cold. OBJECTIVE: Vital Signs Period Temp Pulse Resp BP Sys/[place] Pulse Ox Last 24 Hr 97.3 F-98.7 F 83-93 20-21 111-139/55-70 98-98 GENERAL: A&O, no acute distress HEAD: Normocephalic, atraumatic. EYES: PERRL, no scleral icterus EARS, NOSE, THROAT: oropharynx clear without exudates. Moist mucous membranes. NECK: supple without lymphadenopathy LUNGS: crackles throughout, decreased breath sounds in the right base, improving HEART: Irregularly irregular, systolic murmur ABDOMEN: Soft, nontender to palpation, normoactive bowel sounds MUSCULOSKELETAL: No bony deformities or tenderness. EXTREMITIES: warm, well-perfused. 1+ pitting edema SKIN: Warm, dry, no rashes or lesions noted Laboratory Results - last 24 hr 07/15/18 07/18/18 07/18/18 09:00 05:30 05:30 WBC 9.1 RBC 3.65 Hgb 8.8 L Hct 28.4 L MCV 78.0 L MCH 24.1 L MCHC 30.9 L RDW 20.9 H Plt Count 210 MPV 8.8 PTT (Actin FS) Sodium 142 Potassium 4.2 Chloride 103 Carbon Dioxide 32 Anion Gap 7 L BUN 34 H Creatinine 1.4 H Creat Clearance w eGFR 35.41 Random Glucose 106 Calcium 8.3 L ANA M Screen Positive H ANA M Homogeneous Pattern 1:80 ANA M Nucleolar Pattern TNP ANA M Spindle Florina Pattern TNP ANA M Midbody Pattern TNP ANA M Centriole Pattern TNP ANA M Nuclear Dot Pattern TNP ANA M PCNA Pattern TNP ANA M Nuclear Membr Pat TNP ANA M Speckled Pattern TNP ANA M Centromere Pattern TNP Smooth Musc &THUMB SEWER Intrp 11 07/18/18 05:30 WBC RBC Hgb Hct MCV MCH MCHC RDW Plt Count MPV PTT (Actin FS) 33.9 Sodium Potassium Chloride Carbon Dioxide Anion Gap BUN Creatinine Creat Clearance w eGFR Random Glucose Calcium ANA M Screen ANA M Homogeneous Pattern ANA M Nucleolar Pattern ANA M Spindle Florina Pattern ANA M Midbody Pattern ANA M Centriole Pattern ANA M Nuclear Dot Pattern ANA M PCNA Pattern ANA M Nuclear Membr Pat ANA M Speckled Pattern ANA M Centromere Pattern Smooth Musc &THUMB SEWER Intrp Active Medications Generic Name Dose Route Start Last Admin Trade Name Freq PRN Reason Stop Dose Admin Albuterol/Ipratropium 1 amp 07/16/18 12:00 07/17/18 21:25 Duoneb - NEB 1 amp RQID NOEMÍ Administration Allopurinol 100 mg 07/16/18 10:00 07/17/18 11:18 Zyloprim - PO 100 mg DAILY NOEMÍ Administration Apixaban 2.5 mg 07/16/18 22:00 07/17/18 21:28 Eliquis - PO 2.5 mg BID NOEMÍ Administration Artificial Tears 1 drop 07/16/18 09:02 Artificial Tears OU BID PRN FOR ITCHING Atorvastatin Calcium 20 mg 07/16/18 22:00 07/17/18 21:28 Lipitor - PO 20 mg HS NOEMÍ Administration Cholecalciferol 400 unit 07/16/18 10:00 07/17/18 11:18 Vitamin D3 - PO 400 unit DAILY NOEMÍ Administration Diltiazem HCl 180 mg 07/16/18 10:00 07/17/18 11:16 Cardizem Cd - PO 180 mg DAILY NOEMÍ Administration Ferrous Gluconate 324 mg 07/16/18 10:00 07/17/18 11:17 Fergon - PO 324 mg DAILY NOEMÍ Administration Meropenem 1 gm/ Dextrose 100 mls @ 200 mls/hr 07/18/18 10:00 IVPB 07/18/18 10:29 ONCE ONE Magnesium Oxide 400 mg 07/16/18 10:00 07/17/18 21:28 Mag-Ox - PO 400 mg BID NOEMÍ Administration Metoprolol Succinate 150 mg 07/16/18 10:00 07/17/18 21:28 Toprol Xl - PO 150 mg BID NOEMÍ Administration Valsartan 320 mg 07/16/18 10:00 07/17/18 11:16 Diovan - PO 320 mg DAILY NOEMÍ Administration ASSESSMENT/PLAN: Pt is an 88 yo F with PMHx of GI bleed, afib (on eliquis), HTN, HLD, venous insuff with chronic lymphedema, OA, CHF (diastolic), back pain presenting from home after a fall but found to be SOB. Acute on Chronic Diastolic CHF -b/l effusions noted, Large on right, small on left, atelectasis noted -Pulm consult appreciated -Cardiology consult appreciated -Thoracentesis, 1250 cc drained thus far, fluid analysis pending UTI -Urine culture positive ESBL -Ceftriaxone escalated to Meropenem -ID consulted Transaminitis -Resolved -RUQ US with heterogeneous liver -GI consult appreciated Fall -Denies LOC -CT noted without acute fracture or bleed -PT eval A-fib -Cardiology consult appreciated -Increase Toprol XL from 100 to 150 mg PO Daily -Can add cardizem if still elevated > 120 -Continue Cardizem, cardiology consideration appreciated -Lopressor 5 mg PO Q4 HTN -Diovan 320 mg PO Daily -Cardizem 180 mg PO Daily HLD -Lipitor 20 mg PO HS DVT Prophylaxis -Eliquis 2.5 mg PO BID FEN -Fluids: none -Electrolytes: No electrolyte abnormalities, BMP in AM -Nutrition: Na controlled diet Disposition Telemetry Visit type - Emergency Visit Emergency Visit: Yes ED Registration Date: 07/12/18 Care time: The patient presented to the Emergency Department on the above date and was hospitalized for further evaluation of their emergent condition. - New Patient This patient is new to me today: No - Critical Care Critical Care patient: No
[2018-07-18] MEDS ORDERED: MEROPENEM 1 GM in DEXTROSE 5%-WATER 100 ML IVPB ONE (10:00)
--- NOTE | 2018-07-18 10:57 | PN ---
Progress Note (short form) - Note Progress Note: History of Present Illness: sob improving. no palps, dizziness, lightheadedness, cp Current Medications Albuterol/Ipratropium (Duoneb -) 1 amp NEB RQID ON LICENSE OF [facility] Last Admin: 07/17/18 21:25 Dose: 1 amp Allopurinol (Zyloprim -) 100 mg PO DAILY ON LICENSE OF [facility] Last Admin: 07/18/18 09:28 Dose: 100 mg Apixaban (Eliquis -) 2.5 mg PO BID ON LICENSE OF [facility] Last Admin: 07/18/18 09:28 Dose: 2.5 mg Artificial Tears (Artificial Tears) 1 drop OU BID PRN PRN Reason: FOR ITCHING Atorvastatin Calcium (Lipitor -) 20 mg PO HS ON LICENSE OF [facility] Last Admin: 07/17/18 21:28 Dose: 20 mg Cholecalciferol (Vitamin D3 -) 400 unit PO DAILY ON LICENSE OF [facility] Last Admin: 07/18/18 09:27 Dose: 400 unit Diltiazem HCl (Cardizem Cd -) 180 mg PO DAILY ON [facility] OF [facility] Last Admin: 07/18/18 09:28 Dose: 180 mg Ferrous Gluconate (Fergon -) 324 mg PO DAILY ON [facility] OF [facility] Last Admin: 07/18/18 09:27 Dose: 324 mg Magnesium Oxide (Mag-Ox -) 400 mg PO BID ON LICENSE OF [facility] Last Admin: 07/18/18 09:27 Dose: 400 mg Metoprolol Succinate (Toprol Xl -) 150 mg PO BID ON LICENSE OF [facility] Last Admin: 07/18/18 09:28 Dose: 150 mg Valsartan (Diovan -) 320 mg PO DAILY ON LICENSE OF [facility] Last Admin: 07/18/18 09:28 Dose: 320 mg Vital Signs: Vital Signs Period Temp Pulse Resp BP Sys/Polk Pulse Ox Last 24 Hr 97.3 F-98.7 F 83-92 20-21 111-139/55-70 98-98 Constitutional: Yes: Well Nourished, No Distress Eyes: No: Sclera Icterus Respiratory: Yes: Diminished (R lower half). No: Accessory Muscle Use, Rales, Wheezes Gastrointestinal: Yes: Normal Bowel Sounds. No: Distention, Hepatomegaly, Palpable Mass, Tenderness Cardiovascular: Yes: Pulse Irregular JVD: no Heart Sounds: Yes: S1, S2. No: Gallop Murmur: No: Systolic Murmur, Diastolic Murmur Extremities: No: Cold, Cyanosis Edema: Yes (1+ pretib) Peripheral Pulses: 2+ Left Carotid, 2+ Right Carotid, 2+ Left Doralis Pedis, 2+ Right Dorsalis Pedis Integumentary: No: Jaundice Neurological: Yes: Alert, Oriented (x3) Psychiatric: No: Agitated Assessment/Plan ECG: afib, PVC. baseline wander artifact. NSTWAs diffusely--unchanged vs prior CT chest: large R effusion, small L. no pulm edema described Echo 02/14: ([facility]): LV not well seen. RV ??. mild (AV not well seen). mod-sev MR and TR. RVSP 40-50. Echo 06/2017: nl lv fn. mod rve. rv sys function moderately reduced. mild MR, mod TR. sev phtn. trivial pericardial effusion. Echo 2016: low-nl EF 50-55% (beat to beat variability). mod RV dilation, borderline depressed RV fxn. 1+ /MR, Mod TR, mod pHTN (avg TR 42 mmHg), Cath 2005: LVEDP 18, EF 60%. pRCA mild, pLAD mild, mLAD 50-60%, pLCx mild, OM1 mild. CT head: R occipital lobe infarct, likely old Carotid sono 2018: rt common carotid with mod plaque 50-69%. moderate plaque on left with borderline stenosis. tele afib, rate controlled acute on chronic diastolic CHF with pHTN/RV failure, large R pleural effusion: - home torsemide dose 10 qd as of 04/16 visit (up to 20-40 qd in past), sees dr hargrove in office - BNP 2400, stable (ranges [id number]) - office wt 190 in 04/16, currently 203 lbs. - ++ JVD on exam, with increase in abdomen distension and LE edema at home of late. - large R pleural effusion on CT scan (new vs 02/14 CXR)--? HF etiology? - suspect Afib HR control may be important in optimizing HF status (though may all be secondary to high filling pressures)--as disc'd - digoxin for RV inotropy previously given, not on recent office med list (not given here) - home meds: metoprolol 100 BID, diltiazem ER 180 qd, losartan 100 qd, torsemide 10 qd - consider add spironolactone as outpt, if cannot tolerate higher doses torsemide - 07/14-: Cr stable, sob improving, still with JVD/le edema, weight down on lasix 40 mg IV BID - 07/18 Cr rising, weight 195->196, lasix held today. may be able to transition to torsemide in AM - trend Cr, lytes, daily standing weight - s/p pigtail catheter for R pleural effusion 07/16 Afib - rate controlled with metoprolol and diltiazem during last admit here - dig off as of 04/16 office list (also given for RV inotropy in past)--? toxic levels. defer this med at this time - diltiazem may cause further suppression of RV contractility and worsen right sided HF--pt could consider AVN ablation and PM as an alternate treatment, vs amio--will defer this discussion to outpt setting since it is an elective, long- term issue if she otherwise remains stable from chf standpoint - cont metoprolol - cont diltiazem - previously was off AC due to h/o GI bleed/duodenal ulcer and pt deferred f/u with GI - old infarct noted on CT head last time here--Eliquis 2.5 bid started subsequently - cont eliquis elev troponin: - intermediate range not diagnostic of myocardial injury (in absence of clinical picture suspicious), flat trend not c/w ACS. - ECG non-ischemic -con't ASA, hold statin while with ck elevation/borderline rhabdo. CKD: -baseline creat 1.0-1.5 -renal fxn stable here HTN: -cont current meds carotid atherosclerosis, - previously declined further imaging w/u as outpt - con't asa, statin prior tx plan
--- NOTE | 2018-07-18 15:24 | PN ---
Progress Note (short form) - Note Progress Note: PULMONARY Breathing improving. Chest tube drained 1200mL so far. Vital Signs Period Temp Pulse Resp BP Sys/Polk Pulse Ox Last 24 Hr 97.3 F-98.7 F 83-91 20-21 111-139/54-64 98-98 Gen: NAD at rest Heart: RRR Lung: decreased breath sounds at the bases R>L Abd: soft, nontender Ext: + edema CBC, BMP 07/18/18 05:30 07/18/18 05:30 Active Medications Albuterol/Ipratropium (Duoneb -) 1 amp NEB RQID [facility] Last Admin: 07/18/18 13:10 Dose: 1 amp Allopurinol (Zyloprim -) 100 mg PO DAILY [facility] Last Admin: 07/18/18 09:28 Dose: 100 mg Apixaban (Eliquis -) 2.5 mg PO BID [facility] Last Admin: 07/18/18 09:28 Dose: 2.5 mg Artificial Tears (Artificial Tears) 1 drop OU BID PRN PRN Reason: FOR ITCHING Atorvastatin Calcium (Lipitor -) 20 mg PO HS [facility] Last Admin: 07/17/18 21:28 Dose: 20 mg Cholecalciferol (Vitamin D3 -) 400 unit PO DAILY [facility] Last Admin: 07/18/18 09:27 Dose: 400 unit Diltiazem HCl (Cardizem Cd -) 180 mg PO DAILY [facility] Last Admin: 07/18/18 09:28 Dose: 180 mg Ferrous Gluconate (Fergon -) 324 mg PO DAILY [facility] Last Admin: 07/18/18 09:27 Dose: 324 mg Magnesium Oxide (Mag-Ox -) 400 mg PO BID [facility] Last Admin: 07/18/18 09:27 Dose: 400 mg Metoprolol Succinate (Toprol Xl -) 150 mg PO BID [facility] Last Admin: 07/18/18 09:28 Dose: 150 mg Valsartan (Diovan -) 320 mg PO DAILY [facility] Last Admin: 07/18/18 09:28 Dose: 320 mg A/P Acute on Chronic Diastolic Heart Failure Pleural Effusions R>L Atrial Fibrillation Pulmonary HTN HTN Anemia - f/u pleural fluid studies - monitor chest tube output - continue lasix - monitor urine output, creatinine - O2 to keep Spo2 >90% - rate control - continue anticoagulation
[2018-07-18] MEDS ORDERED: POTASSIUM CHLORIDE TABS 20 MEQ TABLET.ER (FP) PO ONE (15:37)
[2018-07-18] MEDS: ATORVASTATIN CA 20 MG TABLET (FP) PO SCH (21:32)
[2018-07-19 07:23] LABS: HEMATOCRIT 29.6 % (32.4-45.2); HEMOGLOBIN 9.1 GM/dL (10.7-15.3); MCH 24.1 pg (25.7-33.7); MCHC 30.6 g/dl (32.0-36.0); MEAN CELL VOLUME 78.7 fl (80-96); PLATELET COUNT 203 K/MM3 (134-434); RBC 3.76 M/mm3 (3.60-5.2); WHITE BLOOD COUNT 8.5 K/mm3 (4.0-10.0)
[2018-07-19] MEDS: ALBUTEROL SO4 2.5/IPRATROPIUM 0.5 INH SOL 3 ML VIAL.NEB. NEB SCH ×4 (08:50→21:21)
[2018-07-19] MEDS: APIXABAN 2.5 MG TABLET PO SCH ×2 (09:35→22:28)
[2018-07-19] MEDS: FERROUS GLUCONATE 324 MG TAB (FP) PO SCH (09:35)
[2018-07-19] MEDS: VALSARTAN 160 MG TABLET (UD) PO SCH (09:35)
[2018-07-19] MEDS: ALLOPURINOL 100 MG TABLET (FP) PO SCH (09:35)
[2018-07-19] MEDS: MAGNESIUM OXIDE 400 MG TABLET (FP) PO SCH ×2 (09:35→22:28)
[2018-07-19] MEDS: CHOLECALCIFEROL (VITAMIN D3) 400 UNIT TABLET (FP) PO SCH (09:35)
[2018-07-19 09:46] LABS: ANION GAP 8 MMOL/L (8-16); BLOOD UREA NITROGEN 42 mg/dL (7-18); CALCIUM 8.4 mg/dL (8.5-10.1); CHLORIDE 101 mmol/L (98-107); CO2 29 mmol/L (21-32); CREATININE 1.8 mg/dL (0.55-1.3); GLUCOSE,RANDOM 163 mg/dL (74-106); POTASSIUM 5.2 mmol/L (3.5-5.1); SODIUM 138 mmol/L (136-145)
[2018-07-19] MEDS ORDERED: ERTAPENEM SODIUM 1 GM in SODIUM CHLORIDE 50 ML IVPB SCH (10:00)
[2018-07-19] MEDS ORDERED: ERTAPENEM SODIUM 1 GM/50 ML PRE-DOCKED IVPB SCH (10:00)
--- NOTE | 2018-07-19 10:59 | PN ---
Progress Note (short form) - Note Progress Note: SUBJECTIVE: Feels well. No fever/chills. No chest discomfort/dyspnea. No discomfort at pigtail insertion site. OBJECTIVE: Afebrile/hemodynamically Stable. R pigtail in place - no sig drainage since yesterday - 1250ml total Tele - Bradycardia to 40s with 2s pauses. Last Vital Signs Temp Pulse Resp BP Pulse Ox 97.9 F 58 L 20 110/57 L 99 07/19/18 08:09 07/19/18 08:09 07/19/18 08:09 07/19/18 08:09 07/19/18 08:07 HEENT - Atraumatic/Normocephalic. Erythematous sclerae lower eyelids Heart - S1, S2, soft SM Lungs - decreased air entry bibasally R>L, pigtail in place. Abdomen - Soft, non-tender. Bowel Sounds normal. Extremities - Some bilateral LE edema (chronic with skin changes), no calf tenderness Neuro - AAO x 3. Tone/Power normal all extremities. Laboratory Results - last 24 hr 07/19/18 07/19/18 07/19/18 05:45 05:45 09:05 WBC 8.5 RBC 3.76 Hgb 9.1 L Hct 29.6 L MCV 78.7 L MCH 24.1 L MCHC 30.6 L RDW 21.0 H Plt Count 203 MPV 9.0 PTT (Actin FS) 32.9 Sodium 138 Potassium 5.2 H Chloride 101 Carbon Dioxide 29 Anion Gap 8 BUN 42 H Creatinine 1.8 H Creat Clearance w eGFR 26.49 Random Glucose 163 H Calcium 8.4 L Current Medications Generic Name Dose Route Start Last Admin Trade Name Freq PRN Reason Stop Dose Admin Albuterol/Ipratropium 1 amp 07/16/18 12:00 07/19/18 08:50 Duoneb - NEB 1 amp RQID NO[facility]Í Administration Allopurinol 100 mg 07/16/18 10:00 07/19/18 09:35 Zyloprim - PO 100 mg DAILY NO[facility]Í Administration Apixaban 2.5 mg 07/16/18 22:00 07/19/18 09:35 Eliquis - PO 2.5 mg BID NOEMÍ Administration Artificial Tears 1 drop 07/16/18 09:02 Artificial Tears OU BID PRN FOR ITCHING Atorvastatin Calcium 20 mg 07/16/18 22:00 07/18/18 21:32 Lipitor - PO 20 mg HS NOEMÍ Administration Cholecalciferol 400 unit 07/16/18 10:00 07/19/18 09:35 Vitamin D3 - PO 400 unit DAILY [facility] Administration Diltiazem HCl 180 mg 07/16/18 10:00 07/19/18 09:37 Cardizem Cd - PO Not Given DAILY NOEMÍ Ferrous Gluconate 324 mg 07/16/18 10:00 07/19/18 09:35 Fergon - PO 324 mg DAILY [facility] Administration Ertapenem 1 gm/ Sodium 50 mls @ 100 mls/hr 07/19/18 10:00 07/19/18 09:34 Chloride IVPB 100 mls/hr DAILY [facility] Administration Sodium Chloride 1,000 mls @ 83 mls/hr 07/19/18 10:45 Normal Saline - IV ASDIR NOEMÍ Magnesium Oxide 400 mg 07/16/18 10:00 07/19/18 09:35 Mag-Ox - PO 400 mg BID NO[facility]Í Administration Metoprolol Succinate 150 mg 07/16/18 10:00 07/19/18 09:43 Toprol Xl - PO Not Given BID NO[facility]Í Valsartan 320 mg 07/16/18 10:00 07/19/18 09:35 Diovan - PO 320 mg DAILY [facility]Í Administration ASSESSMENT AND PLAN: 88 year old female with history of Atrial Fibrillation on Eliquis, HTN, HLD, prior GI Bleed, Venous insufficiency with chronic lymphedema, Chronic diastolic CHF, presents after sustaining a fall at home, found to be dyspneic in ED. EKG - Afib, HR 108 Hip/pelvis CT, Xray- avascular necrosis of L femur, no fracture CT C spine and Head - negative for fracture or acute pathology. 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 BNP-2407.7 CXR- congestive features, cardiomegaly, R pleural effusion CT Chest - Large R pleural effusion with basilar atelectasis, mild thyromegaly. 1. Acute on Chronic Diastolic CHF with significant R pleural effusion s/p pigtail catheter drainage. BNP elevated on presentation Managed with IV Lasix diuresis, now held due to HAILEY. Normally on Torsemide at home - will resume once Creatinine normalizes. Mild elevation in Troponin - flat, unlikely ACS given clinical picture - Cardiology following. Daily weight, I/Os. Echo - normal EF. Moderate to Severe TR. Thoracentesis attempted 07/15 unsuccessfully - pigtail catheter insertion 07/16, drained 1250ml so far with symptomatic improvement. No further sig drainage since yesterday. Pleural fluid studies still pending. 2. HAILEY on CKD 3 with Hyperkalemia Creat up to 1.8 from 1.3 Renal US requested. Lasix held. Start gentle IV Hydration, Repeat K at 4pm Consult Nephrology. 3. Transaminitis with Hyperbilirubinemia - possibly sec to hepatic congestion. Abdominal US demonstrates heterogenous Liver. Hepatitis panel negative AST/ALT normalized after holding statin. Wander still elevated at 1.3. ANA M pos. GI recommended MRCP - no gross abnormality, non-diagnostic sec to motion artifact, loculated pl effusion. Further recs as per GI. 4. 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 Further work-up as per GI, likely as out-patient. Already on Ferrous Gluconate. Received 1 dose IV Venofer. 5. Atrial Fibrillation with Bradycardia and pauses - resumed on Eliquis (held for pigtail insertion with heparin drip bridging) Will discuss with Cardiology re: increased dose Metoprolol (150mg bid) and Diltiazem. 6. HTN - continue Metoprolol, Valsartan, Diltiazem 7. HLD - normally on Statin - held due to elevated LFTs, now normalized. 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 For ortho outpatient eval. 9 . Venous insufficiency with chronic lymphedema - normally on Torsemide at home. 10. Thyromegaly on CT Chest. US Thyroid requested but apparently not performed as in-patient study at this facility. 11. Ambulatory Dysfunction s/p Fall Xray Hip/Pelvis/C-spine, Head - no acute fracture. PT - will require Rehab/SNF on discharge. 12. 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 Carotid Doppler - moderate sized plaque with hemodynamically significant stenosis, previously declined intervention. Normally on Apixaban and Statin. 13. History of Gout - continue Allopurinol. 14. UTI - ESBL - Ceftriaxone changed to Ertapenem - ID consulted. DVT Px - on Eliquis Visit type - Emergency Visit Emergency Visit: Yes ED Registration Date: 07/12/18 Care time: The patient presented to the Emergency Department on the above date and was hospitalized for further evaluation of their emergent condition. - New Patient This patient is new to me today: No - Critical Care Critical Care patient: No - Discharge Referral Referred to [facility] No
--- NOTE | 2018-07-19 10:59 | PN ---
Progress Note (short form) - Note Progress Note: ID CONSULT DICTATED ASYMPTOMATIC BACTERURIA +URINE C/S ESBL LIKELY COLONIZER/ CONTAMINANT OBSERVE OFF ANTIBIOTICS CONTACT PRECAUTIONS
--- NOTE | 2018-07-19 11:15 | PN ---
Progress Note (short form) - Note Progress Note: History of Present Illness: feels better. no palps, dizziness, lightheadedness, cp Current Medications Albuterol/Ipratropium (Duoneb -) 1 amp NEB RQID [facility] Last Admin: 07/19/18 08:50 Dose: 1 amp Allopurinol (Zyloprim -) 100 mg PO DAILY [facility] Last Admin: 07/19/18 09:35 Dose: 100 mg Apixaban (Eliquis -) 2.5 mg PO BID [facility] Last Admin: 07/19/18 09:35 Dose: 2.5 mg Artificial Tears (Artificial Tears) 1 drop OU BID PRN PRN Reason: FOR ITCHING Atorvastatin Calcium (Lipitor -) 20 mg PO HS [facility] Last Admin: 07/18/18 21:32 Dose: 20 mg Cholecalciferol (Vitamin D3 -) 400 unit PO DAILY [facility] Last Admin: 07/19/18 09:35 Dose: 400 unit Diltiazem HCl (Cardizem Cd -) 180 mg PO DAILY [facility] Last Admin: 07/19/18 09:37 Dose: Not Given Ferrous Gluconate (Fergon -) 324 mg PO DAILY [facility] Last Admin: 07/19/18 09:35 Dose: 324 mg Sodium Chloride (Normal Saline -) 1,000 mls @ 83 mls/hr IV ASDIR [facility] Magnesium Oxide (Mag-Ox -) 400 mg PO BID [facility] Last Admin: 07/19/18 09:35 Dose: 400 mg Metoprolol Succinate (Toprol Xl -) 150 mg PO BID [facility] Last Admin: 07/19/18 09:43 Dose: Not Given Valsartan (Diovan -) 320 mg PO DAILY [facility] Last Admin: 07/19/18 09:35 Dose: 320 mg Vital Signs: Vital Signs Period Temp Pulse Resp BP Sys/Polk Pulse Ox Last 24 Hr 97.5 F-98.1 F 58-89 20-20 106-120/54-62 99-99 Constitutional: Yes: Well Nourished, No Distress Eyes: No: Sclera Icterus Respiratory: Yes: Diminished (R lower half). No: Accessory Muscle Use, Rales, Wheezes Gastrointestinal: Yes: Normal Bowel Sounds. No: Distention, Hepatomegaly, Palpable Mass, Tenderness Cardiovascular: Yes: Pulse Irregular JVD: no Heart Sounds: Yes: S1, S2. No: Gallop Murmur: No: Systolic Murmur, Diastolic Murmur Extremities: No: Cold, Cyanosis Edema: Yes (1+ pretib) Peripheral Pulses: 2+ Left Carotid, 2+ Right Carotid, 2+ Left Doralis Pedis, 2+ Right Dorsalis Pedis Integumentary: No: Jaundice Neurological: Yes: Alert, Oriented (x3) Psychiatric: No: Agitated Assessment/Plan ECG: afib, PVC. baseline wander artifact. NSTWAs diffusely--unchanged vs prior CT chest: large R effusion, small L. no pulm edema described Echo 02/14: ([facility]): LV not well seen. RV ??. mild (AV not well seen). mod-sev MR and TR. RVSP 40-50. Echo 06/2017: nl lv fn. mod rve. rv sys function moderately reduced. mild MR, mod TR. sev phtn. trivial pericardial effusion. Echo 2016: low-nl EF 50-55% (beat to beat variability). mod RV dilation, borderline depressed RV fxn. 1+ /MR, Mod TR, mod pHTN (avg TR 42 mmHg), Cath 2006: LVEDP 18, EF 60%. pRCA mild, pLAD mild, mLAD 50-60%, pLCx mild, OM1 mild. CT head: R occipital lobe infarct, likely old Carotid sono 2018: rt common carotid with mod plaque 50-69%. moderate plaque on left with borderline stenosis. 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 - ++ JVD on exam, with increase in abdomen distension and LE edema at home of late. - large R pleural effusion on CT scan (new vs 02/14 CXR)--? HF etiology? - suspect Afib HR control may be important in optimizing HF status (though may all be secondary to high filling pressures)--as disc'd - digoxin for RV inotropy previously given, not on recent office med list (not given here) - home meds: metoprolol 100 BID, diltiazem ER 180 qd, losartan 100 qd, torsemide 10 qd - consider add spironolactone as outpt, if cannot tolerate higher doses torsemide - 07/14-: Cr stable, sob improving, still with JVD/le edema, weight down on lasix 40 mg IV BID - 07/18 Cr rising, weight 195->196, lasix held today. may be able to transition to torsemide in AM - 07/19 Cr 1.4->1.8, weight stable. would hold diuretic - trend Cr, lytes, daily standing weight - s/p pigtail catheter for R pleural effusion 07/16 Afib - rate controlled with metoprolol and diltiazem during last admit here - dig off as of 04/16 office list (also given for RV inotropy in past)--? toxic levels. defer this med at this time - diltiazem may cause further suppression of RV contractility and worsen right sided HF--pt could consider AVN ablation and PM as an alternate treatment, vs amio--will defer this discussion to outpt setting since it is an elective, long- term issue if she otherwise remains stable from chf standpoint - on increased dose of metoprolol and home diltiazem with bradycardia and pauses noted overnight - decrease metoprolol to 100 mg BID, restart tonight. continue diltiazem 180 mg daily - previously was off AC due to h/o GI bleed/duodenal ulcer and pt deferred f/u with GI - old infarct noted on CT head last time here--Eliquis 2.5 bid started subsequently - cont eliquis elev troponin: - intermediate range not diagnostic of myocardial injury (in absence of clinical picture suspicious), flat trend not c/w ACS. - ECG non-ischemic -con't ASA, hold statin while with ck elevation/borderline rhabdo. CKD: -baseline creat 1.0-1.5 -renal fxn stable here HTN: -cont valsartan, diltiazem, metoprolol carotid atherosclerosis, - previously declined further imaging w/u as outpt - con't asa, statin prior tx plan
--- NOTE | 2018-07-19 12:39 | PN ---
Progress Note (short form) - Note Progress Note: PULMONARY Breathing improving but AM CXR with increasing fluid at right base. Vital Signs Period Temp Pulse Resp BP Sys/Polk Pulse Ox Last 24 Hr 97.5 F-98.1 F 58-89 20-20 106-120/54-62 99-99 Gen: NAD at rest Heart: RRR Lung: decreased breath sounds at the bases R>L Abd: soft, nontender Ext: + edema CBC, BMP 07/19/18 05:45 07/19/18 09:05 Active Medications Albuterol/Ipratropium (Duoneb -) 1 amp NEB RQID [facility] Last Admin: 07/19/18 08:50 Dose: 1 amp Allopurinol (Zyloprim -) 100 mg PO DAILY [facility] Last Admin: 07/19/18 09:35 Dose: 100 mg Apixaban (Eliquis -) 2.5 mg PO BID [facility] Last Admin: 07/19/18 09:35 Dose: 2.5 mg Artificial Tears (Artificial Tears) 1 drop OU BID PRN PRN Reason: FOR ITCHING Atorvastatin Calcium (Lipitor -) 20 mg PO HS [facility] Last Admin: 07/18/18 21:32 Dose: 20 mg Cholecalciferol (Vitamin D3 -) 400 unit PO DAILY [facility] Last Admin: 07/19/18 09:35 Dose: 400 unit Diltiazem HCl (Cardizem Cd -) 180 mg PO DAILY [facility] Last Admin: 07/19/18 09:37 Dose: Not Given Ferrous Gluconate (Fergon -) 324 mg PO DAILY [facility] Last Admin: 07/19/18 09:35 Dose: 324 mg Sodium Chloride (Normal Saline -) 1,000 mls @ 83 mls/hr IV ASDIR [facility] Magnesium Oxide (Mag-Ox -) 400 mg PO BID [facility] Last Admin: 07/19/18 09:35 Dose: 400 mg Metoprolol Succinate (Toprol Xl -) 100 mg PO BID [facility] Valsartan (Diovan -) 320 mg PO DAILY [facility] Last Admin: 07/19/18 09:35 Dose: 320 mg A/P Acute on Chronic Diastolic Heart Failure Pleural Effusions R>L Atrial Fibrillation Pulmonary HTN HTN Anemia - f/u pleural fluid studies - monitor chest tube output - place chest tube to low wall suction, repeat CXR in AM - monitor urine output, creatinine - O2 to keep Spo2 >90% - rate control - continue anticoagulation
[2018-07-19] MEDS: SODIUM CHLORIDE 1,000 ML IV SCH (13:26)
--- NOTE | 2018-07-19 18:35 | CONSULT ---
Consult Consult Specialty:: Nephrology Reason for Consultation:: HAILEY - History of Present Illness Chief Complaint: initially presented with a fall History of Present Illness: Pt is an 88 year old female who initially presented to the hospital for a fall. She has had a prolonged hospital stay. She is now being treated for pleural effusions and heart failure. She has a chest tube in place. I was called to evaluate her for elevated creatinine. She says she has history of kidney disease. She denies dysuria or hematuria. She has lower ext edema. She denies fevers or chills. SHe does complain of shortness of breath. - History Source History Provided By: Patient, Medical Record - Past Medical History [employer]: Yes: CVA, Other (h/o bifrontal craniotomies) Cardio/Vascular: Yes: AFIB, HTN, Hyperlipdemia, Other (non palpable pulses b/l feet) Gastrointestinal: Yes: GI Bleed, Other (Duodenal Tubulovillous adenoma) Musculoskeletal: Yes: Other (tender hypertrophic nails x 10 with subungual debris, +inflammed nails beds, +distal seperation of nail from bed, +xerosis b/ l feet) Rheumatology: Yes: Gout, Other (b/l knee pain) Dermatology: Yes: Other ( Other (tender hypertrophic nails x 10 with subungual debris, +inflammed nails beds, +distal seperation of nail from bed, +xerosis b/ l feet)) - Past Surgical History Past Surgical History: Yes: Craniotomy (excision of meningioma), Hysterectomy ( DANK/BSO) - Alcohol/Substance Use Hx Alcohol Use: No History of Substance Use: reports: None - Smoking History Smoking history: Never smoked Have you smoked in the past 12 months: No - Social History Usual Living Arrangement: Alone ADL: Family Assistance Home Medications - Allergies Allergies/Adverse Reactions: Allergies Allergy/AdvReac Type Severity Reaction Status Date / Time No Known Allergies Allergy Verified 07/12/18 12:16 - Home Medications Home Medications: Ambulatory Orders Cholecalciferol (Vitamin D3) [Vitamin D -] 400 unit PO DAILY 02/25/18 Diltiazem HCl [Cartia Xt] 180 mg PO DAILY 02/25/18 Apixaban [Eliquis -] 2.5 mg PO BID tablet 03/09/18 Atorvastatin Ca [Lipitor] 20 mg PO HS 30 Days #30 tablet 03/09/18 Losartan Potassium 100 mg PO DAILY 30 Days #30 tablet 03/09/18 Metoprolol Succinate [Toprol Xl] 100 mg PO BID 30 Days #60 tab.er.24h 03/09/18 Torsemide [Demadex -] 10 mg PO DAILY 30 Days #30 tablet 03/09/18 Magnesium Oxide 400 mg PO BID 07/12/18 Valsartan [Diovan] 320 mg PO DAILY 07/12/18 Allopurinol [Zyloprim -] 100 mg PO BID 07/13/18 Digoxin Oral Solution [Lanoxin Oral Solution -] 125 mg PO DAILY 07/13/18 Family Disease History - Family Disease History Family History: Denies Review of Systems - Review of Systems Constitutional: reports: Malaise. denies: Chills, Fever Eyes: reports: No Symptoms HENT: reports: No Symptoms Neck: reports: No Symptoms Cardiovascular: reports: Edema, Shortness of Breath Respiratory: reports: Cough, SOB, SOB on Exertion Gastrointestinal: reports: No Symptoms Genitourinary: reports: No Symptoms Integumentary: reports: No Symptoms Neurological: reports: No Symptoms Hematology/Lymphatic: reports: No Symptoms Psychiatric: reports: No Symptoms Physical Exam Vital Signs: Vital Signs Temperature 98 F 07/19/18 14:05 Pulse Rate 69 07/19/18 14:05 Respiratory Rate 20 07/19/18 14:05 Blood Pressure 126/54 L 07/19/18 14:05 O2 Sat by Pulse Oximetry (%) 99 07/19/18 08:07 Constitutional: Yes: Calm Eyes: Yes: Conjunctiva Clear HENT: Yes: Atraumatic Cardiovascular: Yes: S1, S2 Respiratory: Yes: Diminished, On Nasal O2, Other (chest tube rght lung) Musculoskeletal: Yes: Muscle Weakness Edema: Yes Edema: LLE: 2+, RLE: 2+ Integumentary: Yes: Venous Stasis Changes Neurological: Yes: Oriented Psychiatric: Yes: Oriented Labs: CBC, BMP 07/19/18 05:45 07/19/18 09:05 Laboratory Tests 07/03/17 02/25/18 03/07/18 21:20 21:31 06:00 Hgb Creatinine 1.7 H Urine Protein 2+ H 1+ H Ur Leukocyte Esterase ANA M Screen 03/08/18 07/12/18 07/15/18 06:45 16:50 05:30 Hgb Creatinine 1.5 H 1.1 Urine Protein 2+ H Ur Leukocyte Esterase 2+ H ANA M Screen 07/15/18 07/16/18 07/17/18 09:00 05:30 06:45 Hgb Creatinine 1.3 1.3 Urine Protein Ur Leukocyte Esterase ANA M Screen Positive H 07/18/18 07/18/18 07/19/18 05:30 05:30 05:45 Hgb 8.8 L 9.1 L Creatinine 1.4 H Urine Protein Ur Leukocyte Esterase ANA M Screen 07/19/18 09:05 Hgb Creatinine 1.8 H Urine Protein Ur Leukocyte Esterase ANA M Screen Imaging - Results Chest X-ray: Report Reviewed Problem List - Problems (1) HAILEY (acute kidney injury) Code(s): N17.9 - ACUTE KIDNEY FAILURE, UNSPECIFIED (2) Pleural effusion Code(s): J90 - PLEURAL EFFUSION, NOT ELSEWHERE CLASSIFIED (3) Pulmonary HTN Code(s): I27.20 - PULMONARY HYPERTENSION, UNSPECIFIED (4) Diastolic CHF, acute on chronic Code(s): I50.33 - ACUTE ON CHRONIC DIASTOLIC (CONGESTIVE) HEART FAILURE Assessment/Plan Current Medications Generic Name Dose Route Start Last Admin Trade Name Freq PRN Reason Stop Dose Admin Albuterol/Ipratropium 1 amp 07/16/18 12:00 07/19/18 13:00 Duoneb - NEB 1 amp RQID [facility] Administration Allopurinol 100 mg 07/16/18 10:00 07/19/18 09:35 Zyloprim - PO 100 mg DAILY NOEMÍ Administration Apixaban 2.5 mg 07/16/18 22:00 07/19/18 09:35 Eliquis - PO 2.5 mg BID NOEMÍ Administration Artificial Tears 1 drop 07/16/18 09:02 Artificial Tears OU BID PRN FOR ITCHING Atorvastatin Calcium 20 mg 07/16/18 22:00 07/18/18 21:32 Lipitor - PO 20 mg HS NOEMÍ Administration Cholecalciferol 400 unit 07/16/18 10:00 07/19/18 09:35 Vitamin D3 - PO 400 unit DAILY NOEMÍ Administration Diltiazem HCl 180 mg 07/16/18 10:00 07/19/18 09:37 Cardizem Cd - PO Not Given DAILY [facility] Ferrous Gluconate 324 mg 07/16/18 10:00 07/19/18 09:35 Fergon - PO 324 mg DAILY NOEMÍ Administration Sodium Chloride 1,000 mls @ 83 mls/hr 07/19/18 10:45 07/19/18 13:26 Normal Saline - IV 83 mls/hr ASDIR NOEMÍ Administration Magnesium Oxide 400 mg 07/16/18 10:00 07/19/18 09:35 Mag-Ox - PO 400 mg BID NOEMÍ Administration Metoprolol Succinate 100 mg 07/19/18 22:00 Toprol Xl - PO BID NOEMÍ Valsartan 320 mg 07/16/18 10:00 07/19/18 09:35 Diovan - PO 320 mg DAILY NOEMÍ Administration Impression 1. HAILEY 2. hyperkalemia 3. CHF 4. pleural effusion 5. HTN 6. pulm htn 7. a-fib 8. anemia 9. proteinuria Plan - hold diovan as she is hyperkalemic and bp is low - monitor chest tube output - check ua and lytes - check ultrasound kidneys and bladder - diuretics on hold for now - repeat labs in am - will follow Dr Pike
[2018-07-19] MEDS: ATORVASTATIN CA 20 MG TABLET (FP) PO SCH (22:28)
[2018-07-20 07:35] LABS: HEMATOCRIT 30.1 % (32.4-45.2); HEMOGLOBIN 9.3 GM/dL (10.7-15.3); MCH 24.5 pg (25.7-33.7); MEAN PLT VOLUME 8.5 fl (7.5-11.1); PLATELET COUNT 226 K/MM3 (134-434); RBC 3.81 M/mm3 (3.60-5.2); RDW 21.1 % (11.6-15.6); WHITE BLOOD COUNT 7.3 K/mm3 (4.0-10.0)
[2018-07-20] MEDS: ALBUTEROL SO4 2.5/IPRATROPIUM 0.5 INH SOL 3 ML VIAL.NEB. NEB SCH ×4 (08:00→20:02)
[2018-07-20] MEDS: APIXABAN 2.5 MG TABLET PO SCH ×2 (09:54→22:52)
[2018-07-20] MEDS: MULTIVITAMINS (DAILY MVI) TABLET (FP) PO SCH (09:54)
[2018-07-20] MEDS: MAGNESIUM OXIDE 400 MG TABLET (FP) PO SCH ×2 (09:54→22:53)
[2018-07-20] MEDS: ALLOPURINOL 100 MG TABLET (FP) PO SCH (09:54)
[2018-07-20] MEDS: FERROUS GLUCONATE 324 MG TAB (FP) PO SCH (09:54)
[2018-07-20] MEDS: CHOLECALCIFEROL (VITAMIN D3) 400 UNIT TABLET (FP) PO SCH (09:55)
--- NOTE | 2018-07-20 10:58 | PN ---
Progress Note, Physician History of Present Illness: PULMONARY ALERT,COMFORTABLE,LESS DYSPNEIC. + 190c DRAINAGE VIA CHEST TUBE SINCE 7AM( 4hrs) - Current Medication List Current Medications: Active Medications Albuterol/Ipratropium (Duoneb -) 1 amp NEB RQID [facility] Last Admin: 07/20/18 08:00 Dose: 1 amp Allopurinol (Zyloprim -) 100 mg PO DAILY [facility] Last Admin: 07/20/18 09:54 Dose: 100 mg Apixaban (Eliquis -) 2.5 mg PO BID [facility] Last Admin: 07/20/18 09:54 Dose: 2.5 mg Artificial Tears (Artificial Tears) 1 drop OU BID PRN PRN Reason: FOR ITCHING Atorvastatin Calcium (Lipitor -) 20 mg PO HS [facility] Last Admin: 07/19/18 22:28 Dose: 20 mg Cholecalciferol (Vitamin D3 -) 400 unit PO DAILY [facility] Last Admin: 07/20/18 09:55 Dose: 400 unit Diltiazem HCl (Cardizem Cd -) 180 mg PO DAILY [facility] Last Admin: 07/20/18 09:54 Dose: 180 mg Ferrous Gluconate (Fergon -) 324 mg PO DAILY [facility] Last Admin: 07/20/18 09:54 Dose: 324 mg Sodium Chloride (Normal Saline -) 1,000 mls @ 83 mls/hr IV ASDIR [facility] Last Admin: 07/19/18 13:26 Dose: 83 mls/hr Magnesium Oxide (Mag-Ox -) 400 mg PO BID [facility] Last Admin: 07/20/18 09:54 Dose: 400 mg Metoprolol Succinate (Toprol Xl -) 100 mg PO BID [facility] Last Admin: 07/20/18 09:55 Dose: 100 mg Multivitamins/Minerals/Vitamin C (Tab-A-Vit -) 1 tab PO DAILY [facility] Last Admin: 07/20/18 09:54 Dose: 1 tab - Objective Vital Signs: Vital Signs Temperature 97.6 F 07/20/18 09:52 Pulse Rate 84 07/20/18 09:52 Respiratory Rate 17 07/20/18 09:52 Blood Pressure 122/54 L 07/20/18 09:52 O2 Sat by Pulse Oximetry (%) 99 07/19/18 08:07 Constitutional: Yes: Well Nourished, Calm Eyes: Yes: WNL HENT: Yes: WNL Neck: Yes: WNL Cardiovascular: Yes: Pulse Irregular, S1, S2 Respiratory: Yes: Diminished Gastrointestinal: Yes: Normal Bowel Sounds, Soft Extremities: Yes: WNL Edema: Yes Labs: CBC, BMP 07/20/18 06:48 INR, PTT INR 1.25 (0.83-1.09) H 07/16/18 16:30 - ....Imaging Chest X-ray: Report Reviewed, Image Reviewed (IMPROVING AERATION R BASE) Problem List - Problems (1) Pulmonary HTN Code(s): I27.20 - PULMONARY HYPERTENSION, UNSPECIFIED (2) Diastolic CHF, acute on chronic Code(s): I50.33 - ACUTE ON CHRONIC DIASTOLIC (CONGESTIVE) HEART FAILURE (3) Acquired lymphedema of leg Code(s): I89.0 - LYMPHEDEMA, NOT ELSEWHERE CLASSIFIED (4) Atrial fibrillation Code(s): I48.91 - UNSPECIFIED ATRIAL FIBRILLATION Qualifiers: Atrial fibrillation type: paroxysmal Qualified Code(s): I48.0 - Paroxysmal atrial fibrillation (5) HTN (hypertension) Code(s): I10 - ESSENTIAL (PRIMARY) HYPERTENSION (6) Hyperlipidemia Code(s): E78.5 - HYPERLIPIDEMIA, UNSPECIFIED (7) Pleural effusion Code(s): J90 - PLEURAL EFFUSION, NOT ELSEWHERE CLASSIFIED (8) Shortness of breath Code(s): R06.02 - SHORTNESS OF BREATH Assessment/Plan IMP ACUTE ON CHRONIC CHF IMPROVING DYSPNEA IMPROVING S/P FALL BILATERAL PLEURAL EFFUSIONS R>L AFIB PULMONARY HTN HTN ANEMIA PLAN LASIX O2 DAILY WTS INHALED BRONCHODILATORS F/U CHEST X-RAYS MONITOR CHEST TUBE DRAINAGE CHECK RESULTS OF PLEURAL FLUID CHEMISTRIES,CYTOLOGY AC MONITOR LYLOC,H+H DR AJ Problem List - Problems (1) Pulmonary HTN Code(s): I27.20 - PULMONARY HYPERTENSION, UNSPECIFIED (2) Diastolic CHF, acute on chronic Code(s): I50.33 - ACUTE ON CHRONIC DIASTOLIC (CONGESTIVE) HEART FAILURE (3) Acquired lymphedema of leg Code(s): I89.0 - LYMPHEDEMA, NOT ELSEWHERE CLASSIFIED (4) Atrial fibrillation Code(s): I48.91 - UNSPECIFIED ATRIAL FIBRILLATION Qualifiers: Atrial fibrillation type: paroxysmal Qualified Code(s): I48.0 - Paroxysmal atrial fibrillation (5) HTN (hypertension) Code(s): I10 - ESSENTIAL (PRIMARY) HYPERTENSION (6) Hyperlipidemia Code(s): E78.5 - HYPERLIPIDEMIA, UNSPECIFIED (7) Pleural effusion Code(s): J90 - PLEURAL EFFUSION, NOT ELSEWHERE CLASSIFIED (8) Shortness of breath Code(s): R06.02 - SHORTNESS OF BREATH
--- NOTE | 2018-07-20 11:02 | PN ---
Progress Note (short form) - Note Progress Note: SUBJECTIVE: Feels well. No chest discomfort/dyspnea/fever/chills. No discomfort at pigtail insertion site. OBJECTIVE: Afebrile/hemodynamically Stable. R pigtail in place - attached to suction. SpO2 98% on 2L. Last Vital Signs Temp Pulse Resp BP Pulse Ox 97.6 F 84 17 122/54 L 99 07/20/18 09:52 07/20/18 09:52 07/20/18 09:52 07/20/18 09:52 07/19/18 08:07 HEENT - Atraumatic/Normocephalic. Erythematous sclerae lower eyelids Heart - S1, S2, soft SM Lungs - improved air entry bibasally, R pigtail in place. Abdomen - Soft, non-tender. Bowel Sounds normal. Extremities - Some bilateral LE edema (chronic with skin changes), no calf tenderness Neuro - AAO x 3. Tone/Power normal all extremities. Laboratory Results - last 24 hr 07/19/18 07/20/18 21:30 06:48 WBC 7.3 RBC 3.81 Hgb 9.3 L Hct 30.1 L MCV 79.0 L MCH 24.5 L MCHC 31.0 L RDW 21.1 H Plt Count 226 MPV 8.5 Potassium 4.9 Current Medications Generic Name Dose Route Start Last Admin Trade Name Freq PRN Reason Stop Dose Admin Albuterol/Ipratropium 1 amp 07/16/18 12:00 07/20/18 08:00 Duoneb - NEB 1 amp RQID NOEMÍ Administration Allopurinol 100 mg 07/16/18 10:00 07/20/18 09:54 Zyloprim - PO 100 mg DAILY NOEMÍ Administration Apixaban 2.5 mg 07/16/18 22:00 07/20/18 09:54 Eliquis - PO 2.5 mg BID NOEMÍ Administration Artificial Tears 1 drop 07/16/18 09:02 Artificial Tears OU BID PRN FOR ITCHING Atorvastatin Calcium 20 mg 07/16/18 22:00 07/19/18 22:28 Lipitor - PO 20 mg HS NOEMÍ Administration Cholecalciferol 400 unit 07/16/18 10:00 07/20/18 09:55 Vitamin D3 - PO 400 unit DAILY NOEMÍ Administration Diltiazem HCl 180 mg 07/16/18 10:00 07/20/18 09:54 Cardizem Cd - PO 180 mg DAILY NOEMÍ Administration Ferrous Gluconate 324 mg 07/16/18 10:00 07/20/18 09:54 Fergon - PO 324 mg DAILY NOEMÍ Administration Sodium Chloride 1,000 mls @ 83 mls/hr 07/19/18 10:45 07/19/18 13:26 Normal Saline - IV 83 mls/hr ASDIR NOEMÍ Administration Magnesium Oxide 400 mg 07/16/18 10:00 07/20/18 09:54 Mag-Ox - PO 400 mg BID NOEMÍ Administration Metoprolol Succinate 100 mg 07/19/18 22:00 07/20/18 09:55 Toprol Xl - PO 100 mg BID NOEMÍ Administration Multivitamins/Minerals/Vitamin C 1 tab 07/20/18 10:00 07/20/18 09:54 Tab-A-Vit - PO 1 tab DAILY NOEMÍ Administration ASSESSMENT AND PLAN: 88 year old female with history of Atrial Fibrillation on Eliquis, HTN, HLD, prior GI Bleed, Venous insufficiency with chronic lymphedema, Chronic diastolic CHF, presents after sustaining a fall at home, found to be dyspneic in ED. Ix on admission: EKG - Afib, HR 108 Hip/pelvis CT, Xray- avascular necrosis of L femur, no fracture CT C spine and Head - negative for fracture or acute pathology. 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 BNP-2407.7 CXR- congestive features, cardiomegaly, R pleural effusion CT Chest - Large R pleural effusion with basilar atelectasis, mild thyromegaly. 1. Acute on Chronic Diastolic CHF with significant R pleural effusion s/p pigtail catheter drainage. BNP elevated on presentation Managed with IV Lasix diuresis, now held due to HAILEY. Normally on Torsemide at home - will resume once Creatinine normalizes. Mild elevation in Troponin - flat, unlikely ACS given clinical picture - Cardiology following. Daily weight, I/Os. Echo - normal EF. Moderate to Severe TR. Thoracentesis attempted 07/15 unsuccessfully - pigtail catheter insertion 07/16, drained approx 1300ml so far with symptomatic improvement. Pleural fluid studies still pending. 2. HAILEY on CKD 3 with Hyperkalemia Creat now down to 1.6 from 1.8 Renal US requested. Lasix held. Continue gentle IV Hydration. K 5.1 today, will monitor. Nephrology consulted. 3. Transaminitis with Hyperbilirubinemia - possibly sec to hepatic congestion. Abdominal US demonstrates heterogenous Liver. Hepatitis panel negative AST/ALT normalized after holding statin. Wander still elevated at 1.3. ANA M pos. GI recommended MRCP - no gross abnormality, non-diagnostic sec to motion artifact, loculated pl effusion. Further recs as per GI. 4. 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 Further work-up as per GI, likely as out-patient. Already on Ferrous Gluconate. Received 1 dose IV Venofer. 5. Atrial Fibrillation with Bradycardia and pauses - resumed on Eliquis (held for pigtail insertion with heparin drip bridging) Re-eval by Cardiology - Metoprolol dose dropped back to 100 mg bid in addition to Diltiazem. Will monitor on tele. 6. HTN - continue Metoprolol, Valsartan, Diltiazem 7. HLD - normally on Statin - held due to elevated LFTs, now normalized. 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 For ortho outpatient eval. 9 . Venous insufficiency with chronic lymphedema - normally on Torsemide at home. 10. Thyromegaly on CT Chest. US Thyroid requested but apparently not performed as in-patient study at this facility. 11. Ambulatory Dysfunction s/p Fall Xray Hip/Pelvis/C-spine, Head - no acute fracture. PT - will require Rehab/SNF on discharge. 12. 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 Carotid Doppler - moderate sized plaque with hemodynamically significant stenosis, previously declined intervention. Normally on Apixaban and Statin. 13. History of Gout - continue Allopurinol. 14. ESBL in Urine - Initially on ceftriaxone, switched to Ertapenem, discontinued by ID. ESBL felt to be a colonizer - recommendation to observe off Abx. DVT Px - on Eliquis Visit type - Emergency Visit Emergency Visit: Yes ED Registration Date: 07/12/18 Care time: The patient presented to the Emergency Department on the above date and was hospitalized for further evaluation of their emergent condition. - New Patient This patient is new to me today: No - Critical Care Critical Care patient: No - Discharge Referral Referred to [facility] No
[2018-07-20 11:34] LABS: ALBUMIN 2.8 g/dl (3.4-5.0); ALK PHOS 235 U/L (45-117); ANION GAP 4 MMOL/L (8-16); BILIRUBIN,DIRECT 0.6 mg/dL (0.0-0.2); BLOOD UREA NITROGEN 41 mg/dL (7-18); CALCIUM 8.6 mg/dL (8.5-10.1); CHLORIDE 102 mmol/L (98-107); CO2 34 mmol/L (21-32); CREATININE 1.6 mg/dL (0.55-1.3); GLUCOSE,RANDOM 94 mg/dL (74-106); POTASSIUM 5.1 mmol/L (3.5-5.1); SGOT/AST 33 U/L (15-37); SGPT/ALT 34 U/L (13-61); SODIUM 139 mmol/L (136-145); TOT PROT 6.3 g/dl (6.4-8.2)
--- NOTE | 2018-07-20 12:05 | PN ---
Progress Note (short form) - Note Progress Note: History of Present Illness: sob improved. no palps, dizziness, lightheadedness, cp Current Medications Albuterol/Ipratropium (Duoneb -) 1 amp NEB RQID [facility] Last Admin: 07/20/18 08:00 Dose: 1 amp Allopurinol (Zyloprim -) 100 mg PO DAILY [facility] Last Admin: 07/20/18 09:54 Dose: 100 mg Apixaban (Eliquis -) 2.5 mg PO BID [facility] Last Admin: 07/20/18 09:54 Dose: 2.5 mg Artificial Tears (Artificial Tears) 1 drop OU BID PRN PRN Reason: FOR ITCHING Atorvastatin Calcium (Lipitor -) 20 mg PO HS [facility] Last Admin: 07/19/18 22:28 Dose: 20 mg Cholecalciferol (Vitamin D3 -) 400 unit PO DAILY [facility] Last Admin: 07/20/18 09:55 Dose: 400 unit Diltiazem HCl (Cardizem Cd -) 180 mg PO DAILY [facility] Last Admin: 07/20/18 09:54 Dose: 180 mg Ferrous Gluconate (Fergon -) 324 mg PO DAILY [facility] Last Admin: 07/20/18 09:54 Dose: 324 mg Sodium Chloride (Normal Saline -) 1,000 mls @ 83 mls/hr IV ASDIR [facility] Last Admin: 07/19/18 13:26 Dose: 83 mls/hr Magnesium Oxide (Mag-Ox -) 400 mg PO BID [facility] Last Admin: 07/20/18 09:54 Dose: 400 mg Metoprolol Succinate (Toprol Xl -) 100 mg PO BID [facility] Last Admin: 07/20/18 09:55 Dose: 100 mg Multivitamins/Minerals/Vitamin C (Tab-A-Vit -) 1 tab PO DAILY [facility] Last Admin: 07/20/18 09:54 Dose: 1 tab Vital Signs: Vital Signs Period Temp Pulse Resp BP Sys/[place] Pulse Ox Last 24 Hr 97.5 F-98.0 F 69-91 16-20 119-146/45-76 98 Constitutional: Yes: Well Nourished, No Distress Eyes: No: Sclera Icterus Respiratory: Yes: Diminished (R lower half). No: Accessory Muscle Use, Rales, Wheezes Gastrointestinal: Yes: Normal Bowel Sounds. No: Distention, Hepatomegaly, Palpable Mass, Tenderness Cardiovascular: Yes: Pulse Irregular JVD: no Heart Sounds: Yes: S1, S2. No: Gallop Murmur: No: Systolic Murmur, Diastolic Murmur Extremities: No: Cold, Cyanosis Edema: Yes (1+ pretib) Peripheral Pulses: 2+ Left Carotid, 2+ Right Carotid, 2+ Left Doralis Pedis, 2+ Right Dorsalis Pedis Integumentary: No: Jaundice Neurological: Yes: Alert, Oriented (x3) Psychiatric: No: Agitated Assessment/Plan ECG: afib, PVC. baseline wander artifact. NSTWAs diffusely--unchanged vs prior CT chest: large R effusion, small L. no pulm edema described Echo 02/14: ([facility]): LV not well seen. RV ??. mild (AV not well seen). mod-sev MR and TR. RVSP 40-50. Echo 06/2017: nl lv fn. mod rve. rv sys function moderately reduced. mild MR, mod TR. sev phtn. trivial pericardial effusion. Echo 2016: low-nl EF 50-55% (beat to beat variability). mod RV dilation, borderline depressed RV fxn. 1+ /MR, Mod TR, mod pHTN (avg TR 42 mmHg), Cath 2006: LVEDP 18, EF 60%. pRCA mild, pLAD mild, mLAD 50-60%, pLCx mild, OM1 mild. CT head: R occipital lobe infarct, likely old Carotid sono 2018: rt common carotid with mod plaque 50-69%. moderate plaque on left with borderline stenosis. tele afib, rate controlled acute on chronic diastolic CHF with pHTN/RV failure, large R pleural effusion: - home torsemide dose 10 qd as of 04/16 visit (up to 20-40 qd in past), sees dr hargrove in office - BNP 2400, stable (ranges [id number]) - office wt 190 in 04/16, currently 203 lbs. - ++ JVD on exam, with increase in abdomen distension and LE edema at home of late. - large R pleural effusion on CT scan (new vs 02/14 CXR)--? HF etiology? - suspect Afib HR control may be important in optimizing HF status (though may all be secondary to high filling pressures)--as disc'd - digoxin for RV inotropy previously given, not on recent office med list (not given here) - home meds: metoprolol 100 BID, diltiazem ER 180 qd, losartan 100 qd, torsemide 10 qd - consider add spironolactone as outpt, if cannot tolerate higher doses torsemide - 07/14-: Cr stable, sob improving, still with JVD/le edema, weight down on lasix 40 mg IV BID - 07/18 Cr rising, weight 195->196, lasix held today. may be able to transition to torsemide in AM - 07/19 Cr 1.4->1.8, weight stable. would hold diuretic - 07/20 Cr improving, weight increasing. dyspnea improved. hold lasix and IVF - trend Cr, lytes, daily standing weight - s/p pigtail catheter for R pleural effusion 07/16 Afib - rate controlled with metoprolol and diltiazem during last admit here - dig off as of 04/16 office list (also given for RV inotropy in past)--? toxic levels. defer this med at this time - diltiazem may cause further suppression of RV contractility and worsen right sided HF--pt could consider AVN ablation and PM as an alternate treatment, vs amio--will defer this discussion to outpt setting since it is an elective, long- term issue if she otherwise remains stable from chf standpoint - on increased dose of metoprolol and home diltiazem with bradycardia and pauses noted overnight - decrease metoprolol to 100 mg BID, restart tonight. continue diltiazem 180 mg daily - previously was off AC due to h/o GI bleed/duodenal ulcer and pt deferred f/u with GI - old infarct noted on CT head last time here--Eliquis 2.5 bid started subsequently - cont eliquis elev troponin: - intermediate range not diagnostic of myocardial injury (in absence of clinical picture suspicious), flat trend not c/w ACS. - ECG non-ischemic CKD: -baseline creat 1.0-1.5 - now with HAILEY, improving HTN: -cont valsartan, diltiazem, metoprolol carotid atherosclerosis, - previously declined further imaging w/u as outpt - con't asa, statin prior tx plan
[2018-07-20 12:30] LABS: ANISOCYTOSIS 1+; MACROCYTOSIS 1+; PLATELET ESTIMATE ADEQUATE
[2018-07-20] MEDS: SODIUM CHLORIDE 1,000 ML IV SCH (13:15)
[2018-07-20 14:15] LABS: BODY FLUID ALBUMIN 1.1 g/dL (.)
--- NOTE | 2018-07-20 14:57 | PN ---
Progress Note, Physician History of Present Illness: Pt seen and examined at bedside. She is awake and alert. She denies dysuria. She complains of lower ext edema. - Current Medication List Current Medications: Active Medications Albuterol/Ipratropium (Duoneb -) 1 amp NEB RQID [facility] Last Admin: 07/20/18 12:05 Dose: 1 amp Allopurinol (Zyloprim -) 100 mg PO DAILY [facility] Last Admin: 07/20/18 09:54 Dose: 100 mg Apixaban (Eliquis -) 2.5 mg PO BID [facility] Last Admin: 07/20/18 09:54 Dose: 2.5 mg Artificial Tears (Artificial Tears) 1 drop OU BID PRN PRN Reason: FOR ITCHING Atorvastatin Calcium (Lipitor -) 20 mg PO HS [facility] Last Admin: 07/19/18 22:28 Dose: 20 mg Cholecalciferol (Vitamin D3 -) 400 unit PO DAILY [facility] Last Admin: 07/20/18 09:55 Dose: 400 unit Diltiazem HCl (Cardizem Cd -) 180 mg PO DAILY [facility] Last Admin: 07/20/18 09:54 Dose: 180 mg Ferrous Gluconate (Fergon -) 324 mg PO DAILY [facility] Last Admin: 07/20/18 09:54 Dose: 324 mg Magnesium Oxide (Mag-Ox -) 400 mg PO BID [facility] Last Admin: 07/20/18 09:54 Dose: 400 mg Metoprolol Succinate (Toprol Xl -) 100 mg PO BID [facility] Last Admin: 07/20/18 09:55 Dose: 100 mg Multivitamins/Minerals/Vitamin C (Tab-A-Vit -) 1 tab PO DAILY [facility] Last Admin: 07/20/18 09:54 Dose: 1 tab - Objective Vital Signs: Vital Signs Temperature 97.6 F 07/20/18 09:52 Pulse Rate 82 07/20/18 10:00 Respiratory Rate 16 07/20/18 10:00 Blood Pressure 122/54 L 07/20/18 09:52 O2 Sat by Pulse Oximetry (%) 98 07/20/18 09:00 Constitutional: Yes: Calm Eyes: Yes: Conjunctiva Clear HENT: Yes: Atraumatic Cardiovascular: Yes: S1, S2 Respiratory: Yes: On Nasal O2, Other (chest tube) Gastrointestinal: Yes: Soft, Abdomen, Obese Genitourinary: Yes: Incontinence Edema: Yes Edema: LLE: 2+, RLE: 2+ Neurological: Yes: Oriented Psychiatric: Yes: Oriented Labs: CBC, BMP 07/20/18 06:48 07/20/18 06:48 INR, PTT INR 1.25 (0.83-1.09) H 07/16/18 16:30 Problem List - Problems (1) HAILEY (acute kidney injury) Code(s): N17.9 - ACUTE KIDNEY FAILURE, UNSPECIFIED (2) Pleural effusion Code(s): J90 - PLEURAL EFFUSION, NOT ELSEWHERE CLASSIFIED (3) Pulmonary HTN Code(s): I27.20 - PULMONARY HYPERTENSION, UNSPECIFIED (4) Diastolic CHF, acute on chronic Code(s): I50.33 - ACUTE ON CHRONIC DIASTOLIC (CONGESTIVE) HEART FAILURE Assessment/Plan Current Medications Generic Name Dose Route Start Last Admin Trade Name Freq PRN Reason Stop Dose Admin Albuterol/Ipratropium 1 amp 07/16/18 12:00 07/20/18 12:05 Duoneb - NEB 1 amp RQID NOEMÍ Administration Allopurinol 100 mg 07/16/18 10:00 07/20/18 09:54 Zyloprim - PO 100 mg DAILY NOEMÍ Administration Apixaban 2.5 mg 07/16/18 22:00 07/20/18 09:54 Eliquis - PO 2.5 mg BID NOEMÍ Administration Artificial Tears 1 drop 07/16/18 09:02 Artificial Tears OU BID PRN FOR ITCHING Atorvastatin Calcium 20 mg 07/16/18 22:00 07/19/18 22:28 Lipitor - PO 20 mg HS NOEMÍ Administration Cholecalciferol 400 unit 07/16/18 10:00 07/20/18 09:55 Vitamin D3 - PO 400 unit DAILY NOEMÍ Administration Diltiazem HCl 180 mg 07/16/18 10:00 07/20/18 09:54 Cardizem Cd - PO 180 mg DAILY NOEMÍ Administration Ferrous Gluconate 324 mg 07/16/18 10:00 07/20/18 09:54 Fergon - PO 324 mg DAILY NOEMÍ Administration Magnesium Oxide 400 mg 07/16/18 10:00 07/20/18 09:54 Mag-Ox - PO 400 mg BID NOEMÍ Administration Metoprolol Succinate 100 mg 07/19/18 22:00 07/20/18 09:55 Toprol Xl - PO 100 mg BID NOEMÍ Administration Multivitamins/Minerals/Vitamin C 1 tab 07/20/18 10:00 07/20/18 09:54 Tab-A-Vit - PO 1 tab DAILY NOEMÍ Administration Impression 1. HAILEY 2. hyperkalemia 3. CHF 4. pleural effusion 5. HTN 6. pulm htn 7. a-fib 8. anemia 9. proteinuria Plan - keep diovan on hold for now - renal function is improving - potassium stable for now - follow up renal ultrasound - check ua and lytes - diuretics on hold for now - repeat labs in am - will follow Dr Pike
[2018-07-20 15:21] LABS: URINE APPEARANCE SLCLOUDY; URINE BILIRUBIN NEGATIVE (<2.0 mg/dL); URINE COLOR YELLOW; URINE GLUCOSE (UA) NEGATIVE (NEGATIVE); URINE KETONE NEGATIVE (NEGATIVE); URINE LEUK ESTERASE 2+ (NEGATIVE); URINE NITRITE NEGATIVE (NEGATIVE); URINE PROTEIN NEGATIVE (NEGATIVE)
[2018-07-20 15:32] LABS: URINE BACTERIA RARE /hpf (NONE SEEN); URINE MUCUS RARE
--- NOTE | 2018-07-20 17:19 | PATH ---
Cytology Non-Gynecological Report Patient Name: HILDA NAVARRO Med. Rec. #: [id number] /Age/Gender: 1930 (Age: 88) / F Account: [id number] Location: [facility] TELEMETRY U Taken: 07/16/2018 Received: 07/17/2018 Reported: 07/20/2018 Physicians: Hong Valle M.D. PHYSICIAN EMERGENCY DEPT Specimen(s) Received PLEURAL FLUID Clinical History Pleural effusion Final Diagnosis PLEURAL FLUID, THORACENTESIS: SATISFACTORY FOR EVALUATION. NEGATIVE FOR MALIGNANCY. REACTIVE MESOTHELIAL CELLS, MACROPHAGES, AND MIXED CHRONIC INFLAMMATORY CELLS PRESENT. Electronically Signed Jermaine Lackey M.D. Gross Description Approximately 50cc of yellow fluid received in 50% alcohol. One slide prepared.
--- NOTE | 2018-07-20 22:51 | CONS ---
DATE OF CONSULTATION: DATE OF DICTATION: 07/20/2018 HISTORY: The patient is an 88-year-old female evaluated for positive urine culture. She was admitted to the hospital on July 12, 2018 after a fall resulting in left hip trauma. She complained of increasing shortness of breath. The patient was diagnosed with decompensated congestive heart failure. A CAT scan of the chest revealed a pleural effusion with possible underlying pneumonia. She was empirically treated with ceftriaxone. A diagnostic and therapeutic thoracentesis was performed. Results are pending. Her course has been complicated by positive urine culture ESBL. She denies any urinary tract symptoms. Denies any dysuria or hematuria. No suprapubic or flank pain. Urinalysis showed 1 white cells. PAST MEDICAL HISTORY: Positive for congestive heart failure, osteoarthritis, recurrent lower extremity cellulitis, atrial fibrillation, hypertension, hyperlipidemia, lower extremity lymphedema, chronic venostasis dermatitis. ALLERGIES: No known allergies. MEDICATIONS: Include magnesium oxide, Eliquis, Toprol, diltiazem. SOCIAL HISTORY: She resides in the community. She is a former smoker. SYSTEMS REVIEW: Neurologic: No loss of consciousness, seizure activity, focal weakness. Cardiac: Negative chest pain or palpitations. Respiratory: Negative cough or sputum production. Gastrointestinal: Negative vomiting or diarrhea. Genitourinary: Negative for urinary tract infection. LABORATORY DATA: White count 8.5, hematocrit 29.6, platelet count 203, creatinine 1.4. Urinalysis, 1 white cell. Urine culture, ESBL. PHYSICAL EXAMINATION: General: She is awake and alert. She is not acutely toxic appearing. Vital Signs: Temperature 97.9, blood pressure 110/57, pulse 58 and regular, respirations 20 per minute. HEENT: Sclerae anicteric. Positive ectropion. Heart: Sounds S1, S2. Lungs: Decreased breath sounds bilaterally. Pigtail catheter is in place with chest tube. Abdomen: Obese, soft. No tenderness elicited. No suprapubic or flank tenderness. Extremities: Bilateral lower extremity lymphedema. IMPRESSION: 1. Asymptomatic bacteriuria. 2. Positive urine culture, extended-spectrum beta-lactamase likely colonized/contaminant. 3. Status post drainage of pleural effusion. 4. Decompensated congestive heart failure. PLAN: Observe off antibiotic therapy. No treatment for urine isolet. Contact precautions. Thank you for the kind referral. CANDIE WU M.D. [id number]
[2018-07-20] MEDS: ATORVASTATIN CA 20 MG TABLET (FP) PO SCH (22:52)
--- NOTE | 2018-07-20 23:35 | PN ---
Progress Note, Physician History of Present Illness: Awake, alert in bed No complaints No c/o dysuria Denies chest pain/ dyspnea Afebrile WBC WNL Pleural fluid c/s (-) - Current Medication List Current Medications: Active Medications Albuterol/Ipratropium (Duoneb -) 1 amp NEB RQID [facility] Last Admin: 07/20/18 20:02 Dose: 1 amp Allopurinol (Zyloprim -) 100 mg PO DAILY [facility] Last Admin: 07/20/18 09:54 Dose: 100 mg Apixaban (Eliquis -) 2.5 mg PO BID [facility] Last Admin: 07/20/18 22:52 Dose: 2.5 mg Artificial Tears (Artificial Tears) 1 drop OU BID PRN PRN Reason: FOR ITCHING Atorvastatin Calcium (Lipitor -) 20 mg PO HS [facility] Last Admin: 07/20/18 22:52 Dose: 20 mg Cholecalciferol (Vitamin D3 -) 400 unit PO DAILY [facility] Last Admin: 07/20/18 09:55 Dose: 400 unit Diltiazem HCl (Cardizem Cd -) 180 mg PO DAILY [facility] Last Admin: 07/20/18 09:54 Dose: 180 mg Ferrous Gluconate (Fergon -) 324 mg PO DAILY [facility] Last Admin: 07/20/18 09:54 Dose: 324 mg Magnesium Oxide (Mag-Ox -) 400 mg PO BID [facility] Last Admin: 07/20/18 22:53 Dose: 400 mg Metoprolol Succinate (Toprol Xl -) 100 mg PO BID [facility] Last Admin: 07/20/18 23:00 Dose: 100 mg Multivitamins/Minerals/Vitamin C (Tab-A-Vit -) 1 tab PO DAILY [facility] Last Admin: 07/20/18 09:54 Dose: 1 tab - Objective Vital Signs: Vital Signs Temperature 98.0 F 07/20/18 21:26 Pulse Rate 76 07/20/18 21:26 Respiratory Rate 20 07/20/18 21:26 Blood Pressure 148/86 07/20/18 21:26 O2 Sat by Pulse Oximetry (%) 98 07/20/18 21:00 Constitutional: Yes: No Distress Cardiovascular: Yes: Regular Rate and Rhythm, S1, S2 Respiratory: Yes: CTA Bilaterally, Other (+ chest tube) Gastrointestinal: Yes: Normal Bowel Sounds, Soft Edema: Yes Labs: CBC, BMP 07/20/18 06:48 07/20/18 06:48 INR, PTT INR 1.25 (0.83-1.09) H 07/16/18 16:30 Assessment/Plan Asymptomatic bacteruria Pleural effusion s/p chest tube Transudative c/s (-) Observe off antibiotics
[2018-07-21 07:11] LABS: HEMATOCRIT 28.7 % (32.4-45.2); HEMOGLOBIN 8.9 GM/dL (10.7-15.3); MCH 24.6 pg (25.7-33.7); MEAN CELL VOLUME 79.1 fl (80-96); MEAN PLT VOLUME 8.6 fl (7.5-11.1); PLATELET COUNT 197 K/MM3 (134-434); RBC 3.63 M/mm3 (3.60-5.2); RDW 21.8 % (11.6-15.6); WHITE BLOOD COUNT 7.4 K/mm3 (4.0-10.0)
[2018-07-21] MEDS: ALBUTEROL SO4 2.5/IPRATROPIUM 0.5 INH SOL 3 ML VIAL.NEB. NEB SCH ×4 (08:38→21:50)
[2018-07-21 09:09] LABS: ANION GAP 6 MMOL/L (8-16); BLOOD UREA NITROGEN 43 mg/dL (7-18); CALCIUM 8.6 mg/dL (8.5-10.1); CHLORIDE 103 mmol/L (98-107); CO2 32 mmol/L (21-32); CREATININE 1.3 mg/dL (0.55-1.3); GLUCOSE,RANDOM 90 mg/dL (74-106); POTASSIUM 5.2 mmol/L (3.5-5.1); SODIUM 141 mmol/L (136-145)
[2018-07-21] MEDS: CHOLECALCIFEROL (VITAMIN D3) 400 UNIT TABLET (FP) PO SCH (09:36)
[2018-07-21] MEDS: APIXABAN 2.5 MG TABLET PO SCH ×2 (09:37→22:05)
[2018-07-21] MEDS: ALLOPURINOL 100 MG TABLET (FP) PO SCH (09:37)
[2018-07-21] MEDS: FERROUS GLUCONATE 324 MG TAB (FP) PO SCH (09:37)
[2018-07-21] MEDS: ARTIFICIAL TEARS (POLYVINYL ALCOHOL) OPTH DROPS OU SCH ×2 (09:38→22:05)
[2018-07-21] MEDS: MULTIVITAMINS (DAILY MVI) TABLET (FP) PO SCH (09:42)
--- NOTE | 2018-07-21 10:30 | PN ---
Physical Exam: SUBJECTIVE: Patient seen and examined this AM. She states she is feeling well today but that her breakfast is lousy. OBJECTIVE: Vital Signs Period Temp Pulse Resp BP Sys/[place] Pulse Ox Last 24 Hr 97.2 F-98.0 F 71-86 20-20 121-148/59-86 98-98 GENERAL: A&O, no acute distress HEAD: Normocephalic, atraumatic. EYES: PERRL, no scleral icterus EARS, NOSE, THROAT: oropharynx clear without exudates. Moist mucous membranes. NECK: supple without lymphadenopathy LUNGS: crackles throughout, decreased breath sounds in the right base, improving , chest tube in place. HEART: Irregularly irregular, systolic murmur ABDOMEN: Soft, nontender to palpation, normoactive bowel sounds MUSCULOSKELETAL: No bony deformities or tenderness. EXTREMITIES: warm, well-perfused. 1+ pitting edema SKIN: Warm, dry, no rashes or lesions noted Laboratory Results - last 24 hr 07/16/18 07/20/18 07/20/18 15:00 06:48 06:48 WBC RBC Hgb Hct MCV MCH MCHC RDW Plt Count MPV Total Counted 100 Neutrophils % (Manual) 70.0 Lymphocytes % (Manual) 18.0 Monocytes % (Manual) 10 Eosinophils % (Manual) 2.0 Platelet Estimate Adequate Anisocytosis 1+ Microcytosis 1+ Macrocytosis 1+ Sodium 139 Potassium 5.1 Chloride 102 Carbon Dioxide 34 H Anion Gap 4 L BUN 41 H Creatinine 1.6 H Creat Clearance w eGFR 30.35 Random Glucose 94 Calcium 8.6 Total Bilirubin 1.0 Direct Bilirubin 0.6 H AST 33 ALT 34 Alkaline Phosphatase 235 H Total Protein 6.3 L Albumin 2.8 L Urine Color Urine Appearance Urine pH Ur Specific [place] Urine Protein Urine Glucose (UA) Urine Ketones Urine Blood Urine Nitrite Urine Bilirubin Urine Urobilinogen Ur Leukocyte Esterase Urine WBC (Auto) Urine RBC (Auto) Urine Bacteria Urine Mucus Ur Random Sodium Ur Random Potassium Ur Random Chloride Urine Creatinine POC Fluid pH 8.2 Fluid Total Protein 1.8 Fluid Albumin 1.1 Body Fluid LDH Source 135 Fluid Amylase 27 Fluid Triglycerides 15 07/20/18 07/20/18 07/20/18 13:25 13:25 13:25 WBC RBC Hgb Hct MCV MCH MCHC RDW Plt Count MPV Total Counted Neutrophils % (Manual) Lymphocytes % (Manual) Monocytes % (Manual) Eosinophils % (Manual) Platelet Estimate Anisocytosis Microcytosis Macrocytosis Sodium Potassium Chloride Carbon Dioxide Anion Gap BUN Creatinine Creat Clearance w eGFR Random Glucose Calcium Total Bilirubin Direct Bilirubin AST ALT Alkaline Phosphatase Total Protein Albumin Urine Color Yellow Urine Appearance Slcloudy Urine pH 6.0 Ur Specific [place] 1.015 Urine Protein Negative Urine Glucose (UA) Negative Urine Ketones Negative Urine Blood 2+ H Urine Nitrite Negative Urine Bilirubin Negative Urine Urobilinogen 2.0 H Ur Leukocyte Esterase 2+ H Urine WBC (Auto) 52 Urine RBC (Auto) 1 Urine Bacteria Rare Urine Mucus Rare Ur Random Sodium 48 Ur Random Potassium 49.0 Ur Random Chloride 39 L Urine Creatinine 70.0 H POC Fluid pH Fluid Total Protein Fluid Albumin Body Fluid LDH Source Fluid Amylase Fluid Triglycerides 07/21/18 07/21/18 05:30 05:30 WBC 7.4 RBC 3.63 Hgb 8.9 L Hct 28.7 L MCV 79.1 L MCH 24.6 L MCHC 31.0 L RDW 21.8 H Plt Count 197 MPV 8.6 Total Counted Neutrophils % (Manual) Lymphocytes % (Manual) Monocytes % (Manual) Eosinophils % (Manual) Platelet Estimate Anisocytosis Microcytosis Macrocytosis Sodium 141 Potassium 5.2 H Chloride 103 Carbon Dioxide 32 Anion Gap 6 L BUN 43 H Creatinine 1.3 Creat Clearance w eGFR 38.57 Random Glucose 90 Calcium 8.6 Total Bilirubin Direct Bilirubin AST ALT Alkaline Phosphatase Total Protein Albumin Urine Color Urine Appearance Urine pH Ur Specific [place] Urine Protein Urine Glucose (UA) Urine Ketones Urine Blood Urine Nitrite Urine Bilirubin Urine Urobilinogen Ur Leukocyte Esterase Urine WBC (Auto) Urine RBC (Auto) Urine Bacteria Urine Mucus Ur Random Sodium Ur Random Potassium Ur Random Chloride Urine Creatinine POC Fluid pH Fluid Total Protein Fluid Albumin Body Fluid LDH Source Fluid Amylase Fluid Triglycerides Active Medications Generic Name Dose Route Start Last Admin Trade Name Freq PRN Reason Stop Dose Admin Albuterol/Ipratropium 1 amp 07/16/18 12:00 07/21/18 08:38 Duoneb - NEB 1 amp RQID NOEMÍ Administration Allopurinol 100 mg 07/16/18 10:00 07/21/18 09:37 Zyloprim - PO 100 mg DAILY NOEMÍ Administration Apixaban 2.5 mg 07/16/18 22:00 07/21/18 09:37 Eliquis - PO 2.5 mg BID NOEMÍ Administration Artificial Tears 1 drop 07/21/18 10:00 07/21/18 09:38 Artificial Tears OU 1 drop BID NOEMÍ Administration Atorvastatin Calcium 20 mg 07/16/18 22:00 07/20/18 22:52 Lipitor - PO 20 mg HS NOEMÍ Administration Cholecalciferol 400 unit 07/16/18 10:00 07/21/18 09:36 Vitamin D3 - PO 400 unit DAILY NOEMÍ Administration Diltiazem HCl 180 mg 07/16/18 10:00 07/21/18 09:36 Cardizem Cd - PO 180 mg DAILY NOEMÍ Administration Ferrous Gluconate 324 mg 07/16/18 10:00 07/21/18 09:37 Fergon - PO 324 mg DAILY NOEMÍ Administration Metoprolol Succinate 100 mg 07/19/18 22:00 07/21/18 09:36 Toprol Xl - PO 100 mg BID NOEMÍ Administration Multivitamins/Minerals/Vitamin C 1 tab 07/20/18 10:00 07/21/18 09:42 Tab-A-Vit - PO 1 tab DAILY NOEMÍ Administration ASSESSMENT/PLAN: Pt is an 88 yo F with PMHx of GI bleed, afib (on eliquis), HTN, HLD, venous insuff with chronic lymphedema, OA, CHF (diastolic), back pain presenting from home after a fall but found to be SOB. Acute on Chronic Diastolic CHF -b/l effusions noted, Large on right, small on left, atelectasis noted -Pulm consult appreciated -Cardiology consult appreciated -Thoracentesis fluid consistent with Transudate -Consider D/C chest tube soon -Respiratory status improving -Restart home Torsemide 10 mg PO Daily UTI -Urine culture positive ESBL -Ceftriaxone escalated to Meropenem -ID consulted Transaminitis -Resolved -RUQ US with heterogeneous liver -GI consult appreciated Fall -Denies LOC -CT noted without acute fracture or bleed -PT eval A-fib -Cardiology consult appreciated -Increase Toprol XL from 100 to 150 mg PO Daily -Can add cardizem if still elevated > 120 -Continue Cardizem, cardiology consideration appreciated -Lopressor 5 mg PO Q4 HTN -Diovan 320 mg PO Daily -Cardizem 180 mg PO Daily HLD -Lipitor 20 mg PO HS DVT Prophylaxis -Eliquis 2.5 mg PO BID FEN -Fluids: none -Electrolytes: No electrolyte abnormalities, BMP in AM -Nutrition: Na controlled diet Disposition Telemetry Visit type - Emergency Visit Emergency Visit: Yes ED Registration Date: 07/12/18 Care time: The patient presented to the Emergency Department on the above date and was hospitalized for further evaluation of their emergent condition. - New Patient This patient is new to me today: No - Critical Care Critical Care patient: No
--- NOTE | 2018-07-21 11:04 | PN ---
Progress Note (short form) - Note Progress Note: History of Present Illness: sob improved. no palps, dizziness, lightheadedness, cp Current Medications Albuterol/Ipratropium (Duoneb -) 1 amp NEB RQID [facility] Last Admin: 07/21/18 08:38 Dose: 1 amp Allopurinol (Zyloprim -) 100 mg PO DAILY [facility] Last Admin: 07/21/18 09:37 Dose: 100 mg Apixaban (Eliquis -) 2.5 mg PO BID [facility] Last Admin: 07/21/18 09:37 Dose: 2.5 mg Artificial Tears (Artificial Tears) 1 drop OU BID [facility] Last Admin: 07/21/18 09:38 Dose: 1 drop Atorvastatin Calcium (Lipitor -) 20 mg PO HS [facility] Last Admin: 07/20/18 22:52 Dose: 20 mg Cholecalciferol (Vitamin D3 -) 400 unit PO DAILY [facility] Last Admin: 07/21/18 09:36 Dose: 400 unit Diltiazem HCl (Cardizem Cd -) 180 mg PO DAILY [facility] Last Admin: 07/21/18 09:36 Dose: 180 mg Ferrous Gluconate (Fergon -) 324 mg PO DAILY [facility] Last Admin: 07/21/18 09:37 Dose: 324 mg Metoprolol Succinate (Toprol Xl -) 100 mg PO BID [facility] Last Admin: 07/21/18 09:36 Dose: 100 mg Multivitamins/Minerals/Vitamin C (Tab-A-Vit -) 1 tab PO DAILY [facility] Last Admin: 07/21/18 09:42 Dose: 1 tab Vital Signs: Vital Signs Period Temp Pulse Resp BP Sys/[place] Pulse Ox Last 24 Hr 97.2 F-98.0 F 71-86 20-20 121-148/59-86 98-98 Constitutional: Yes: Well Nourished, No Distress Eyes: No: Sclera Icterus Respiratory: Yes: Diminished (R lower half). No: Accessory Muscle Use, Rales, Wheezes Gastrointestinal: Yes: Normal Bowel Sounds. No: Distention, Hepatomegaly, Palpable Mass, Tenderness Cardiovascular: Yes: Pulse Irregular JVD: no Heart Sounds: Yes: S1, S2. No: Gallop Murmur: No: Systolic Murmur, Diastolic Murmur Extremities: No: Cold, Cyanosis Edema: Yes (1+ pretib) Peripheral Pulses: 2+ Left Carotid, 2+ Right Carotid, 2+ Left Doralis Pedis, 2+ Right Dorsalis Pedis Integumentary: No: Jaundice Neurological: Yes: Alert, Oriented (x3) Psychiatric: No: Agitated Assessment/Plan ECG: afib, PVC. baseline wander artifact. NSTWAs diffusely--unchanged vs prior CT chest: large R effusion, small L. no pulm edema described Echo 02/14: ([facility]): LV not well seen. RV ??. mild (AV not well seen). mod-sev MR and TR. RVSP 40-50. Echo 06/2017: nl lv fn. mod rve. rv sys function moderately reduced. mild MR, mod TR. sev phtn. trivial pericardial effusion. Echo 2016: low-nl EF 50-55% (beat to beat variability). mod RV dilation, borderline depressed RV fxn. 1+ /MR, Mod TR, mod pHTN (avg TR 42 mmHg), Cath 2005: LVEDP 18, EF 60%. pRCA mild, pLAD mild, mLAD 50-60%, pLCx mild, OM1 mild. CT head: R occipital lobe infarct, likely old Carotid sono 2018: rt common carotid with mod plaque 50-69%. moderate plaque on left with borderline stenosis. tele afib, rate controlled acute on chronic diastolic CHF with pHTN/RV failure, large R pleural effusion: - home torsemide dose 10 qd as of 04/16 visit (up to 20-40 qd in past), sees dr hargrove in office - BNP 2400, stable (ranges [id number]) - office wt 190 in 04/16, currently 203 lbs. - ++ JVD on exam, with increase in abdomen distension and LE edema at home of late. - large R pleural effusion on CT scan (new vs 02/14 CXR)--? HF etiology? - suspect Afib HR control may be important in optimizing HF status (though may all be secondary to high filling pressures)--as disc'd - digoxin for RV inotropy previously given, not on recent office med list (not given here) - home meds: metoprolol 100 BID, diltiazem ER 180 qd, losartan 100 qd, torsemide 10 qd - consider add spironolactone as outpt, if cannot tolerate higher doses torsemide - 07/14-: Cr stable, sob improving, still with JVD/le edema, weight down on lasix 40 mg IV BID - 07/18 Cr rising, weight 195->196, lasix held today. may be able to transition to torsemide in AM - 07/19 Cr 1.4->1.8, weight stable. would hold diuretic - 07/20 Cr improving, weight increasing. dyspnea improved. hold lasix and IVF - 07/21 Cr improved. sob stable. stable edema. weight increasing, restart home torsemide, monitor Cr - trend Cr, lytes, daily standing weight - s/p pigtail catheter for R pleural effusion 07/16 Afib - rate controlled with metoprolol and diltiazem during last admit here - dig off as of 04/16 office list (also given for RV inotropy in past)--? toxic levels. defer this med at this time - diltiazem may cause further suppression of RV contractility and worsen right sided HF--pt could consider AVN ablation and PM as an alternate treatment, vs amio--will defer this discussion to outpt setting since it is an elective, long- term issue if she otherwise remains stable from chf standpoint - on increased dose of metoprolol and home diltiazem with bradycardia and pauses noted overnight - decrease metoprolol to 100 mg BID, restart tonight. continue diltiazem 180 mg daily - previously was off AC due to h/o GI bleed/duodenal ulcer and pt deferred f/u with GI - old infarct noted on CT head last time here--Eliquis 2.5 bid started subsequently - cont eliquis elev troponin: - intermediate range not diagnostic of myocardial injury (in absence of clinical picture suspicious), flat trend not c/w ACS. - ECG non-ischemic CKD: -baseline creat 1.0-1.5 - now with HAILEY, improving HTN: -cont valsartan, diltiazem, metoprolol carotid atherosclerosis, - previously declined further imaging w/u as outpt - con't asa, statin prior tx plan
--- NOTE | 2018-07-21 11:32 | PN ---
Progress Note, Physician History of Present Illness: pulmonary alert,comfortable,-resp distress. pleural fluid c/w transudate. CHEST TUBE DRAINAGE 175CC - Current Medication List Current Medications: Active Medications Albuterol/Ipratropium (Duoneb -) 1 amp NEB RQID [facility] Last Admin: 07/21/18 08:38 Dose: 1 amp Allopurinol (Zyloprim -) 100 mg PO DAILY [facility] Last Admin: 07/21/18 09:37 Dose: 100 mg Apixaban (Eliquis -) 2.5 mg PO BID [facility] Last Admin: 07/21/18 09:37 Dose: 2.5 mg Artificial Tears (Artificial Tears) 1 drop OU BID [facility] Last Admin: 07/21/18 09:38 Dose: 1 drop Atorvastatin Calcium (Lipitor -) 20 mg PO HS [facility] Last Admin: 07/20/18 22:52 Dose: 20 mg Cholecalciferol (Vitamin D3 -) 400 unit PO DAILY [facility] Last Admin: 07/21/18 09:36 Dose: 400 unit Diltiazem HCl (Cardizem Cd -) 180 mg PO DAILY [facility] Last Admin: 07/21/18 09:36 Dose: 180 mg Ferrous Gluconate (Fergon -) 324 mg PO DAILY [facility] Last Admin: 07/21/18 09:37 Dose: 324 mg Metoprolol Succinate (Toprol Xl -) 100 mg PO BID [facility] Last Admin: 07/21/18 09:36 Dose: 100 mg Multivitamins/Minerals/Vitamin C (Tab-A-Vit -) 1 tab PO DAILY [facility] Last Admin: 07/21/18 09:42 Dose: 1 tab - Objective Vital Signs: Vital Signs Temperature 97.2 F L 07/21/18 08:28 Pulse Rate 77 07/21/18 08:28 Respiratory Rate 20 07/21/18 08:30 Blood Pressure 123/59 L 07/21/18 08:28 O2 Sat by Pulse Oximetry (%) 98 07/21/18 08:30 Constitutional: Yes: Well Nourished, Calm Eyes: Yes: WNL HENT: Yes: WNL Neck: Yes: WNL Cardiovascular: Yes: Pulse Irregular, S1, S2 Respiratory: Yes: Diminished Gastrointestinal: Yes: Normal Bowel Sounds, Soft Extremities: Yes: WNL Edema: Yes Labs: CBC, BMP 07/21/18 05:30 07/21/18 05:30 INR, PTT INR 1.25 (0.83-1.09) H 07/16/18 16:30 Problem List - Problems (1) Pulmonary HTN Code(s): I27.20 - PULMONARY HYPERTENSION, UNSPECIFIED (2) Diastolic CHF, acute on chronic Code(s): I50.33 - ACUTE ON CHRONIC DIASTOLIC (CONGESTIVE) HEART FAILURE (3) Acquired lymphedema of leg Code(s): I89.0 - LYMPHEDEMA, NOT ELSEWHERE CLASSIFIED (4) Atrial fibrillation Code(s): I48.91 - UNSPECIFIED ATRIAL FIBRILLATION Qualifiers: Atrial fibrillation type: paroxysmal Qualified Code(s): I48.0 - Paroxysmal atrial fibrillation (5) HTN (hypertension) Code(s): I10 - ESSENTIAL (PRIMARY) HYPERTENSION (6) Hyperlipidemia Code(s): E78.5 - HYPERLIPIDEMIA, UNSPECIFIED (7) Pleural effusion Code(s): J90 - PLEURAL EFFUSION, NOT ELSEWHERE CLASSIFIED (8) Shortness of breath Code(s): R06.02 - SHORTNESS OF BREATH Assessment/Plan IMP ACUTE ON CHRONIC CHF IMPROVING DYSPNEA IMPROVING S/P FALL BILATERAL PLEURAL EFFUSIONS R>L TRANSUDATE AFIB PULMONARY HTN HTN ANEMIA PLAN LASIX O2 DAILY WTS INHALED BRONCHODILATORS F/U CHEST X-RAYS MONITOR CHEST TUBE DRAINAGE AC MONITOR LYTES,H+H CONSIDER D/C CHEST TUBE DR AJ Problem List - Problems (1) Pulmonary HTN Code(s): I27.20 - PULMONARY HYPERTENSION, UNSPECIFIED (2) Diastolic CHF, acute on chronic Code(s): I50.33 - ACUTE ON CHRONIC DIASTOLIC (CONGESTIVE) HEART FAILURE (3) Acquired lymphedema of leg Code(s): I89.0 - LYMPHEDEMA, NOT ELSEWHERE CLASSIFIED (4) Atrial fibrillation Code(s): I48.91 - UNSPECIFIED ATRIAL FIBRILLATION Qualifiers: Atrial fibrillation type: paroxysmal Qualified Code(s): I48.0 - Paroxysmal atrial fibrillation (5) HTN (hypertension) Code(s): I10 - ESSENTIAL (PRIMARY) HYPERTENSION (6) Hyperlipidemia Code(s): E78.5 - HYPERLIPIDEMIA, UNSPECIFIED (7) Pleural effusion Code(s): J90 - PLEURAL EFFUSION, NOT ELSEWHERE CLASSIFIED (8) Shortness of breath Code(s): R06.02 - SHORTNESS OF BREATH
[2018-07-21] MEDS ORDERED: TORSEMIDE 10 MG TABLET PO SCH (11:45)
--- NOTE | 2018-07-21 13:40 | PN ---
Teaching Attending Note Name of Resident: Louei Rubio ATTENDING PHYSICIAN STATEMENT I saw and evaluated the patient. I reviewed the resident's note and discussed the case with the resident. I agree with the resident's findings and plan as documented. SUBJECTIVE: OBJECTIVE: Vital Signs Period Temp Pulse Resp BP Sys/Polk Pulse Ox Last 24 Hr 97.2 F-98.0 F 71-86 20-20 121-148/59-86 98-98 Laboratory Results - last 24 hr 07/16/18 07/20/18 07/20/18 15:00 13:25 13:25 WBC RBC Hgb Hct MCV MCH MCHC RDW Plt Count MPV Sodium Potassium Chloride Carbon Dioxide Anion Gap BUN Creatinine Creat Clearance w eGFR Random Glucose Calcium Urine Color Yellow Urine Appearance Slcloudy Urine pH 6.0 Ur Specific [place] 1.015 Urine Protein Negative Urine Glucose (UA) Negative Urine Ketones Negative Urine Blood 2+ H Urine Nitrite Negative Urine Bilirubin Negative Urine Urobilinogen 2.0 H Ur Leukocyte Esterase 2+ H Urine WBC (Auto) 52 Urine RBC (Auto) 1 Urine Bacteria Rare Urine Mucus Rare Ur Random Sodium 48 Ur Random Potassium 49.0 Ur Random Chloride 39 L Urine Creatinine POC Fluid pH 8.2 Fluid Total Protein 1.8 Fluid Albumin 1.1 Body Fluid LDH Source 135 Fluid Amylase 27 Fluid Triglycerides 15 07/20/18 07/21/18 07/21/18 13:25 05:30 05:30 WBC 7.4 RBC 3.63 Hgb 8.9 L Hct 28.7 L MCV 79.1 L MCH 24.6 L MCHC 31.0 L RDW 21.8 H Plt Count 197 MPV 8.6 Sodium 141 Potassium 5.2 H Chloride 103 Carbon Dioxide 32 Anion Gap 6 L BUN 43 H Creatinine 1.3 Creat Clearance w eGFR 38.57 Random Glucose 90 Calcium 8.6 Urine Color Urine Appearance Urine pH Ur Specific [place] Urine Protein Urine Glucose (UA) Urine Ketones Urine Blood Urine Nitrite Urine Bilirubin Urine Urobilinogen Ur Leukocyte Esterase Urine WBC (Auto) Urine RBC (Auto) Urine Bacteria Urine Mucus Ur Random Sodium Ur Random Potassium Ur Random Chloride Urine Creatinine 70.0 H POC Fluid pH Fluid Total Protein Fluid Albumin Body Fluid LDH Source Fluid Amylase Fluid Triglycerides Current Medications Generic Name Dose Route Start Last Admin Trade Name Freq PRN Reason Stop Dose Admin Albuterol/Ipratropium 1 amp 07/16/18 12:00 07/21/18 12:06 Duoneb - NEB 1 amp RQID NOEMÍ Administration Allopurinol 100 mg 07/16/18 10:00 07/21/18 09:37 Zyloprim - PO 100 mg DAILY NO[facility]Í Administration Apixaban 2.5 mg 07/16/18 22:00 07/21/18 09:37 Eliquis - PO 2.5 mg BID NO[facility]Í Administration Artificial Tears 1 drop 07/21/18 10:00 07/21/18 09:38 Artificial Tears OU 1 drop BID NO[facility] Administration Atorvastatin Calcium 20 mg 07/16/18 22:00 07/20/18 22:52 Lipitor - PO 20 mg HS NO[facility]Í Administration Cholecalciferol 400 unit 07/16/18 10:00 07/21/18 09:36 Vitamin D3 - PO 400 unit DAILY [facility] Administration Diltiazem HCl 180 mg 07/16/18 10:00 07/21/18 09:36 Cardizem Cd - PO 180 mg DAILY [facility] Administration Ferrous Gluconate 324 mg 07/16/18 10:00 07/21/18 09:37 Fergon - PO 324 mg DAILY NO[facility] Administration Metoprolol Succinate 100 mg 07/19/18 22:00 07/21/18 09:36 Toprol Xl - PO 100 mg BID NO[facility] Administration Multivitamins/Minerals/Vitamin C 1 tab 07/20/18 10:00 07/21/18 09:42 Tab-A-Vit - PO 1 tab DAILY [facility] Administration Torsemide 10 mg 07/21/18 11:45 Demadex - PO DAILY [facility] ASSESSMENT AND PLAN: This is an 88 year old woman with a history of atrial fibrillation, HTN, hyperlipidemia, GI Bleed, venous insufficiency, lymphedema, chronic diastolic heart failure who presented to the ED after falling at home. 1. Acute on Chronic Diastolic CHF with significant R pleural effusion s/p pigtail catheter drainage. BNP elevated on presentation Managed with IV Lasix diuresis, now held due to HAILEY. Normally on Torsemide at home - will resume once Creatinine normalizes. Mild elevation in Troponin - flat, unlikely ACS given clinical picture - Cardiology following. Daily weight, I/Os. Echo - normal EF. Moderate to Severe TR. Thoracentesis attempted 07/15 unsuccessfully - pigtail catheter insertion 07/16, drained approx 1300ml so far with symptomatic improvement. Pleural fluid studies still pending. 2. HAILEY on CKD 3 with Hyperkalemia Creat now down to 1.6 from 1.8 Renal US requested. Lasix held. Continue gentle IV Hydration. K 5.1 today, will monitor. Nephrology consulted. 3. Transaminitis with Hyperbilirubinemia - possibly sec to hepatic congestion. Abdominal US demonstrates heterogenous Liver. Hepatitis panel negative AST/ALT normalized after holding statin. Wander still elevated at 1.3. ANA M pos. GI recommended MRCP - no gross abnormality, non-diagnostic sec to motion artifact, loculated pl effusion. Further recs as per GI. 4. 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 Further work-up as per GI, likely as out-patient. Already on Ferrous Gluconate. Received 1 dose IV Venofer. 5. Atrial Fibrillation with Bradycardia and pauses - resumed on Eliquis (held for pigtail insertion with heparin drip bridging) Re-eval by Cardiology - Metoprolol dose dropped back to 100 mg bid in addition to Diltiazem. Will monitor on tele. 6. HTN - continue Metoprolol, Valsartan, Diltiazem 7. HLD - normally on Statin - held due to elevated LFTs, now normalized. 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 For ortho outpatient eval. 9 . Venous insufficiency with chronic lymphedema - normally on Torsemide at home. 10. Thyromegaly on CT Chest. US Thyroid requested but apparently not performed as in-patient study at this facility. 11. Ambulatory Dysfunction s/p Fall Xray Hip/Pelvis/C-spine, Head - no acute fracture. PT - will require Rehab/SNF on discharge. 12. 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 Carotid Doppler - moderate sized plaque with hemodynamically significant stenosis, previously declined intervention. Normally on Apixaban and Statin. 13. History of Gout - continue Allopurinol. 14. ESBL in Urine - Initially on ceftriaxone, switched to Ertapenem, discontinued by ID. ESBL felt to be a colonizer - recommendation to observe off Abx.
--- NOTE | 2018-07-21 13:40 | PN ---
Progress Note, Physician History of Present Illness: Pt seen and examined at bedside. She is awake and alert. She denies increased shortness of breath. - Current Medication List Current Medications: Active Medications Albuterol/Ipratropium (Duoneb -) 1 amp NEB RQID [facility] Last Admin: 07/21/18 12:06 Dose: 1 amp Allopurinol (Zyloprim -) 100 mg PO DAILY [facility] Last Admin: 07/21/18 09:37 Dose: 100 mg Apixaban (Eliquis -) 2.5 mg PO BID [facility] Last Admin: 07/21/18 09:37 Dose: 2.5 mg Artificial Tears (Artificial Tears) 1 drop OU BID [facility] Last Admin: 07/21/18 09:38 Dose: 1 drop Atorvastatin Calcium (Lipitor -) 20 mg PO HS [facility] Last Admin: 07/20/18 22:52 Dose: 20 mg Cholecalciferol (Vitamin D3 -) 400 unit PO DAILY [facility] Last Admin: 07/21/18 09:36 Dose: 400 unit Diltiazem HCl (Cardizem Cd -) 180 mg PO DAILY [facility] Last Admin: 07/21/18 09:36 Dose: 180 mg Ferrous Gluconate (Fergon -) 324 mg PO DAILY [facility] Last Admin: 07/21/18 09:37 Dose: 324 mg Metoprolol Succinate (Toprol Xl -) 100 mg PO BID [facility] Last Admin: 07/21/18 09:36 Dose: 100 mg Multivitamins/Minerals/Vitamin C (Tab-A-Vit -) 1 tab PO DAILY [facility] Last Admin: 07/21/18 09:42 Dose: 1 tab Torsemide (Demadex -) 10 mg PO DAILY [facility] - Objective Vital Signs: Vital Signs Temperature 97.2 F L 07/21/18 08:28 Pulse Rate 77 07/21/18 08:28 Respiratory Rate 20 07/21/18 08:30 Blood Pressure 123/59 L 07/21/18 08:28 O2 Sat by Pulse Oximetry (%) 98 07/21/18 08:30 Constitutional: Yes: Calm Eyes: Yes: Conjunctiva Clear HENT: Yes: Atraumatic Cardiovascular: Yes: S1, S2 Respiratory: Yes: On Nasal O2, Other (chest tube) Gastrointestinal: Yes: Soft, Abdomen, Obese Genitourinary: Yes: WNL Musculoskeletal: Yes: WNL Edema: Yes Edema: LLE: 1+, RLE: 1+ Neurological: Yes: Oriented Psychiatric: Yes: Oriented Labs: CBC, BMP 07/21/18 05:30 07/21/18 05:30 INR, PTT INR 1.25 (0.83-1.09) H 07/16/18 16:30 Problem List - Problems (1) HAILEY (acute kidney injury) Code(s): N17.9 - ACUTE KIDNEY FAILURE, UNSPECIFIED (2) Pleural effusion Code(s): J90 - PLEURAL EFFUSION, NOT ELSEWHERE CLASSIFIED (3) Pulmonary HTN Code(s): I27.20 - PULMONARY HYPERTENSION, UNSPECIFIED (4) Diastolic CHF, acute on chronic Code(s): I50.33 - ACUTE ON CHRONIC DIASTOLIC (CONGESTIVE) HEART FAILURE Assessment/Plan Current Medications Generic Name Dose Route Start Last Admin Trade Name Freq PRN Reason Stop Dose Admin Albuterol/Ipratropium 1 amp 07/16/18 12:00 07/21/18 12:06 Duoneb - NEB 1 amp RQID NOEMÍ Administration Allopurinol 100 mg 07/16/18 10:00 07/21/18 09:37 Zyloprim - PO 100 mg DAILY [facility] Administration Apixaban 2.5 mg 07/16/18 22:00 07/21/18 09:37 Eliquis - PO 2.5 mg BID NO[facility]Í Administration Artificial Tears 1 drop 07/21/18 10:00 07/21/18 09:38 Artificial Tears OU 1 drop BID NO[facility]Í Administration Atorvastatin Calcium 20 mg 07/16/18 22:00 07/20/18 22:52 Lipitor - PO 20 mg HS NOEMÍ Administration Cholecalciferol 400 unit 07/16/18 10:00 07/21/18 09:36 Vitamin D3 - PO 400 unit DAILY [facility] Administration Diltiazem HCl 180 mg 07/16/18 10:00 07/21/18 09:36 Cardizem Cd - PO 180 mg DAILY NO[facility] Administration Ferrous Gluconate 324 mg 07/16/18 10:00 07/21/18 09:37 Fergon - PO 324 mg DAILY NO[facility]Í Administration Metoprolol Succinate 100 mg 07/19/18 22:00 07/21/18 09:36 Toprol Xl - PO 100 mg BID NO[facility]Í Administration Multivitamins/Minerals/Vitamin C 1 tab 07/20/18 10:00 07/21/18 09:42 Tab-A-Vit - PO 1 tab DAILY [facility] Administration Torsemide 10 mg 07/21/18 11:45 Demadex - PO DAILY NO[facility]Í Impression 1. HAILEY 2. hyperkalemia 3. CHF 4. pleural effusion 5. HTN 6. pulm htn 7. a-fib 8. anemia 9. proteinuria Plan - renal function is improving - discussed with cardio, agree with restarting po torsemide - diovan on hold as potassium is high - repeat labs and mag level in am - pulm follow up for chest tube - renal ultrasound reviewed Dr Pike
[2018-07-21] MEDS ORDERED: PT OWN MED DRAWER 7, Y5N ONE (21:57)
[2018-07-21] MEDS: ATORVASTATIN CA 20 MG TABLET (FP) PO SCH (22:05)
[2018-07-22 06:36] LABS: HEMATOCRIT 27.9 % (32.4-45.2); HEMOGLOBIN 8.6 GM/dL (10.7-15.3); MCH 24.5 pg (25.7-33.7); MEAN CELL VOLUME 79.3 fl (80-96); MEAN PLT VOLUME 8.7 fl (7.5-11.1); PLATELET COUNT 189 K/MM3 (134-434); RBC 3.52 M/mm3 (3.60-5.2); RDW 22.3 % (11.6-15.6); WHITE BLOOD COUNT 7.2 K/mm3 (4.0-10.0)
[2018-07-22 07:39] LABS: ANION GAP 9 MMOL/L (8-16); BLOOD UREA NITROGEN 48 mg/dL (7-18); CALCIUM 8.2 mg/dL (8.5-10.1); CHLORIDE 103 mmol/L (98-107); CO2 28 mmol/L (21-32); CREATININE 1.5 mg/dL (0.55-1.3); GLUCOSE,RANDOM 94 mg/dL (74-106); MAGNESIUM 2.7 mg/dL (1.8-2.4); PHOSPHOROUS 4.6 mg/dL (2.5-4.9); POTASSIUM 5.4 mmol/L (3.5-5.1); SODIUM 139 mmol/L (136-145)
[2018-07-22] MEDS: ALBUTEROL SO4 2.5/IPRATROPIUM 0.5 INH SOL 3 ML VIAL.NEB. NEB SCH ×4 (08:34→21:05)
[2018-07-22] MEDS ORDERED: PT OWN MED DRAWER 7, Y5N ONE (10:10)
[2018-07-22] MEDS: APIXABAN 2.5 MG TABLET PO SCH ×2 (10:26→21:32)
[2018-07-22] MEDS: MULTIVITAMINS (DAILY MVI) TABLET (FP) PO SCH (10:27)
[2018-07-22] MEDS: ARTIFICIAL TEARS (POLYVINYL ALCOHOL) OPTH DROPS OU SCH ×2 (10:27→21:33)
[2018-07-22] MEDS: FERROUS GLUCONATE 324 MG TAB (FP) PO SCH (10:27)
[2018-07-22] MEDS: CHOLECALCIFEROL (VITAMIN D3) 400 UNIT TABLET (FP) PO SCH (10:28)
[2018-07-22] MEDS: ALLOPURINOL 100 MG TABLET (FP) PO SCH (10:28)
--- NOTE | 2018-07-22 10:50 | PN ---
Progress Note, Physician History of Present Illness: Pt seen and examined at bedside. She is awake and alert. She feels that her lower ext edema is worsening. - Current Medication List Current Medications: Active Medications Albuterol/Ipratropium (Duoneb -) 1 amp NEB RQID [facility] Last Admin: 07/22/18 08:34 Dose: 1 amp Allopurinol (Zyloprim -) 100 mg PO DAILY [facility] Last Admin: 07/22/18 10:28 Dose: 100 mg Apixaban (Eliquis -) 2.5 mg PO BID [facility] Last Admin: 07/22/18 10:26 Dose: 2.5 mg Artificial Tears (Artificial Tears) 1 drop OU BID [facility] Last Admin: 07/22/18 10:27 Dose: 1 drop Atorvastatin Calcium (Lipitor -) 20 mg PO HS [facility] Last Admin: 07/21/18 22:05 Dose: 20 mg Cholecalciferol (Vitamin D3 -) 400 unit PO DAILY [facility] Last Admin: 07/22/18 10:28 Dose: 400 unit Diltiazem HCl (Cardizem Cd -) 180 mg PO DAILY [facility] Last Admin: 07/22/18 10:27 Dose: 180 mg Ferrous Gluconate (Fergon -) 324 mg PO DAILY [facility] Last Admin: 07/22/18 10:27 Dose: 324 mg Metoprolol Succinate (Toprol Xl -) 100 mg PO BID [facility] Last Admin: 07/22/18 10:27 Dose: 100 mg Multivitamins/Minerals/Vitamin C (Tab-A-Vit -) 1 tab PO DAILY [facility] Last Admin: 07/22/18 10:27 Dose: 1 tab Torsemide (Demadex -) 10 mg PO DAILY [facility] Last Admin: 07/22/18 10:27 Dose: 10 mg - Objective Vital Signs: Vital Signs Temperature 97.9 F 07/22/18 05:52 Pulse Rate 59 L 07/22/18 05:52 Respiratory Rate 17 07/22/18 05:52 Blood Pressure 110/61 07/22/18 05:52 O2 Sat by Pulse Oximetry (%) 97 07/21/18 21:00 Constitutional: Yes: Calm Eyes: Yes: Conjunctiva Clear HENT: Yes: Atraumatic Cardiovascular: Yes: S1, S2 Respiratory: Yes: On Nasal O2, Other (chest tube) Gastrointestinal: Yes: Soft, Abdomen, Obese Genitourinary: Yes: WNL Edema: Yes Edema: LLE: 2+, RLE: 2+ Neurological: Yes: Oriented Psychiatric: Yes: Oriented Labs: CBC, BMP 07/22/18 05:30 07/22/18 05:30 INR, PTT INR 1.25 (0.83-1.09) H 07/16/18 16:30 Problem List - Problems (1) HAILEY (acute kidney injury) Code(s): N17.9 - ACUTE KIDNEY FAILURE, UNSPECIFIED (2) Pleural effusion Code(s): J90 - PLEURAL EFFUSION, NOT ELSEWHERE CLASSIFIED (3) Pulmonary HTN Code(s): I27.20 - PULMONARY HYPERTENSION, UNSPECIFIED (4) Diastolic CHF, acute on chronic Code(s): I50.33 - ACUTE ON CHRONIC DIASTOLIC (CONGESTIVE) HEART FAILURE Assessment/Plan Current Medications Generic Name Dose Route Start Last Admin Trade Name Freq PRN Reason Stop Dose Admin Albuterol/Ipratropium 1 amp 07/16/18 12:00 07/22/18 08:34 Duoneb - NEB 1 amp RQID NOEMÍ Administration Allopurinol 100 mg 07/16/18 10:00 07/22/18 10:28 Zyloprim - PO 100 mg DAILY NO[facility]Í Administration Apixaban 2.5 mg 07/16/18 22:00 07/22/18 10:26 Eliquis - PO 2.5 mg BID NOEMÍ Administration Artificial Tears 1 drop 07/21/18 10:00 07/22/18 10:27 Artificial Tears OU 1 drop BID NO[facility]Í Administration Atorvastatin Calcium 20 mg 07/16/18 22:00 07/21/18 22:05 Lipitor - PO 20 mg HS NOEMÍ Administration Cholecalciferol 400 unit 07/16/18 10:00 07/22/18 10:28 Vitamin D3 - PO 400 unit DAILY NO[facility]Í Administration Diltiazem HCl 180 mg 07/16/18 10:00 07/22/18 10:27 Cardizem Cd - PO 180 mg DAILY NOEMÍ Administration Ferrous Gluconate 324 mg 07/16/18 10:00 07/22/18 10:27 Fergon - PO 324 mg DAILY NOEMÍ Administration Metoprolol Succinate 100 mg 07/19/18 22:00 07/22/18 10:27 Toprol Xl - PO 100 mg BID NOEMÍ Administration Multivitamins/Minerals/Vitamin C 1 tab 07/20/18 10:00 07/22/18 10:27 Tab-A-Vit - PO 1 tab DAILY NOEMÍ Administration Torsemide 10 mg 07/21/18 11:45 07/22/18 10:27 Demadex - PO 10 mg DAILY NOEMÍ Administration Impression 1. HAILEY 2. hyperkalemia 3. CHF 4. pleural effusion 5. HTN 6. pulm htn 7. a-fib 8. anemia 9. proteinuria Plan - renal function is worse today - cont torsemide, consider increasing dose - low potassium diet - diovan on hold as potassium is high - pulm follow up for chest tube Dr Pike
--- NOTE | 2018-07-22 11:13 | PN ---
Progress Note (short form) - Note Progress Note: History of Present Illness: edema feels worse, stable dyspnea. no cp, palps, dizziness Current Medications Albuterol/Ipratropium (Duoneb -) 1 amp NEB RQID [facility] Last Admin: 07/22/18 08:34 Dose: 1 amp Allopurinol (Zyloprim -) 100 mg PO DAILY [facility] Last Admin: 07/22/18 10:28 Dose: 100 mg Apixaban (Eliquis -) 2.5 mg PO BID [facility] Last Admin: 07/22/18 10:26 Dose: 2.5 mg Artificial Tears (Artificial Tears) 1 drop OU BID [facility] Last Admin: 07/22/18 10:27 Dose: 1 drop Atorvastatin Calcium (Lipitor -) 20 mg PO HS [facility] Last Admin: 07/21/18 22:05 Dose: 20 mg Cholecalciferol (Vitamin D3 -) 400 unit PO DAILY [facility] Last Admin: 07/22/18 10:28 Dose: 400 unit Diltiazem HCl (Cardizem Cd -) 180 mg PO DAILY [facility] Last Admin: 07/22/18 10:27 Dose: 180 mg Ferrous Gluconate (Fergon -) 324 mg PO DAILY [facility] Last Admin: 07/22/18 10:27 Dose: 324 mg Metoprolol Succinate (Toprol Xl -) 100 mg PO BID [facility] Last Admin: 07/22/18 10:27 Dose: 100 mg Multivitamins/Minerals/Vitamin C (Tab-A-Vit -) 1 tab PO DAILY [facility] Last Admin: 07/22/18 10:27 Dose: 1 tab Torsemide (Demadex -) 10 mg PO DAILY [facility] Last Admin: 07/22/18 10:27 Dose: 10 mg Vital Signs: Vital Signs Period Temp Pulse Resp BP Sys/Polk Pulse Ox Last 24 Hr 97.3 F-97.9 F 59-71 17-20 107-122/47-75 97-98 Constitutional: Yes: Well Nourished, No Distress Eyes: No: Sclera Icterus Respiratory: Yes: Diminished (R lower half). No: Accessory Muscle Use, Rales, Wheezes Gastrointestinal: Yes: Normal Bowel Sounds. No: Distention, Hepatomegaly, Palpable Mass, Tenderness Cardiovascular: Yes: Pulse Irregular JVD: no Heart Sounds: Yes: S1, S2. No: Gallop Murmur: No: Systolic Murmur, Diastolic Murmur Extremities: No: Cold, Cyanosis Edema: Yes (1+ pretib) Peripheral Pulses: 2+ Left Carotid, 2+ Right Carotid, 2+ Left Doralis Pedis, 2+ Right Dorsalis Pedis Integumentary: No: Jaundice Neurological: Yes: Alert, Oriented (x3) Psychiatric: No: Agitated Assessment/Plan ECG: afib, PVC. baseline wander artifact. NSTWAs diffusely--unchanged vs prior CT chest: large R effusion, small L. no pulm edema described Echo 02/14: ([facility]): LV not well seen. RV ??. mild (AV not well seen). mod-sev MR and TR. RVSP 40-50. Echo 06/2017: nl lv fn. mod rve. rv sys function moderately reduced. mild MR, mod TR. sev phtn. trivial pericardial effusion. Echo 2016: low-nl EF 50-55% (beat to beat variability). mod RV dilation, borderline depressed RV fxn. 1+ /MR, Mod TR, mod pHTN (avg TR 42 mmHg), Cath 2005: LVEDP 18, EF 60%. pRCA mild, pLAD mild, mLAD 50-60%, pLCx mild, OM1 mild. CT head: R occipital lobe infarct, likely old Carotid sono 2018: rt common carotid with mod plaque 50-69%. moderate plaque on left with borderline stenosis. tele afib, rate controlled acute on chronic diastolic CHF with pHTN/RV failure, large R pleural effusion: - home torsemide dose 10 qd as of 04/16 visit (up to 20-40 qd in past), sees dr hargrove in office - BNP 2400, stable (ranges [id number]) - office wt 190 in 04/16, currently 203 lbs. - ++ JVD on exam, with increase in abdomen distension and LE edema at home of late. - large R pleural effusion on CT scan (new vs 02/14 CXR)--? HF etiology? - suspect Afib HR control may be important in optimizing HF status (though may all be secondary to high filling pressures)--as disc'd - digoxin for RV inotropy previously given, not on recent office med list (not given here) - home meds: metoprolol 100 BID, diltiazem ER 180 qd, losartan 100 qd, torsemide 10 qd - consider add spironolactone as outpt, if cannot tolerate higher doses torsemide - 07/14-: Cr stable, sob improving, still with JVD/le edema, weight down on lasix 40 mg IV BID - 07/18 Cr rising, weight 195->196, lasix held today. may be able to transition to torsemide in AM - 07/19 Cr 1.4->1.8, weight stable. would hold diuretic - 07/20 Cr improving, weight increasing. dyspnea improved. hold lasix and IVF - 07/21 Cr improved. sob stable. stable edema. weight increasing, restart home torsemide, monitor Cr - 07/22 - trend Cr, lytes, daily standing weight - s/p pigtail catheter for R pleural effusion 07/16 Afib - rate controlled with metoprolol and diltiazem during last admit here - dig off as of 04/16 office list (also given for RV inotropy in past)--? toxic levels. defer this med at this time - diltiazem may cause further suppression of RV contractility and worsen right sided HF--pt could consider AVN ablation and PM as an alternate treatment, vs amio--will defer this discussion to outpt setting since it is an elective, long- term issue if she otherwise remains stable from chf standpoint - on increased dose of metoprolol and home diltiazem with bradycardia and pauses noted overnight - decrease metoprolol to 100 mg BID and continue diltiazem 180 mg daily - previously was off AC due to h/o GI bleed/duodenal ulcer and pt deferred f/u with GI - old infarct noted on CT head last time here--Eliquis 2.5 bid started subsequently - cont eliquis elev troponin: - intermediate range not diagnostic of myocardial injury (in absence of clinical picture suspicious), flat trend not c/w ACS. - ECG non-ischemic CKD: -baseline creat 1.0-1.5 - now with HAILEY, improving HTN: -cont valsartan, diltiazem, metoprolol carotid atherosclerosis, - previously declined further imaging w/u as outpt - con't asa, statin prior tx plan
--- NOTE | 2018-07-22 11:22 | PN ---
Progress Note, Physician History of Present Illness: pulmonary alert,comfortable rest rest,+ ambirz - Current Medication List Current Medications: Active Medications Albuterol/Ipratropium (Duoneb -) 1 amp NEB RQID [facility] Last Admin: 07/22/18 08:34 Dose: 1 amp Allopurinol (Zyloprim -) 100 mg PO DAILY [facility] Last Admin: 07/22/18 10:28 Dose: 100 mg Apixaban (Eliquis -) 2.5 mg PO BID [facility] Last Admin: 07/22/18 10:26 Dose: 2.5 mg Artificial Tears (Artificial Tears) 1 drop OU BID [facility] Last Admin: 07/22/18 10:27 Dose: 1 drop Atorvastatin Calcium (Lipitor -) 20 mg PO HS [facility] Last Admin: 07/21/18 22:05 Dose: 20 mg Cholecalciferol (Vitamin D3 -) 400 unit PO DAILY [facility] Last Admin: 07/22/18 10:28 Dose: 400 unit Diltiazem HCl (Cardizem Cd -) 180 mg PO DAILY [facility] Last Admin: 07/22/18 10:27 Dose: 180 mg Ferrous Gluconate (Fergon -) 324 mg PO DAILY [facility] Last Admin: 07/22/18 10:27 Dose: 324 mg Metoprolol Succinate (Toprol Xl -) 100 mg PO BID [facility] Last Admin: 07/22/18 10:27 Dose: 100 mg Multivitamins/Minerals/Vitamin C (Tab-A-Vit -) 1 tab PO DAILY [facility] Last Admin: 07/22/18 10:27 Dose: 1 tab Torsemide (Demadex -) 10 mg PO DAILY [facility] Last Admin: 07/22/18 10:27 Dose: 10 mg - Objective Vital Signs: Vital Signs Temperature 97.8 F 07/22/18 10:00 Pulse Rate 69 07/22/18 10:00 Respiratory Rate 20 07/22/18 10:00 Blood Pressure 107/75 07/22/18 10:00 O2 Sat by Pulse Oximetry (%) 98 07/22/18 09:00 Constitutional: Yes: Well Nourished, Calm Eyes: Yes: WNL HENT: Yes: WNL Neck: Yes: WNL Cardiovascular: Yes: Pulse Irregular, S1, S2 Respiratory: Yes: Diminished Gastrointestinal: Yes: Normal Bowel Sounds, Soft Extremities: Yes: WNL Edema: Yes Labs: CBC, BMP 07/22/18 05:30 07/22/18 05:30 INR, PTT INR 1.25 (0.83-1.09) H 07/16/18 16:30 Problem List - Problems (1) Pulmonary HTN Code(s): I27.20 - PULMONARY HYPERTENSION, UNSPECIFIED (2) Diastolic CHF, acute on chronic Code(s): I50.33 - ACUTE ON CHRONIC DIASTOLIC (CONGESTIVE) HEART FAILURE (3) Acquired lymphedema of leg Code(s): I89.0 - LYMPHEDEMA, NOT ELSEWHERE CLASSIFIED (4) Atrial fibrillation Code(s): I48.91 - UNSPECIFIED ATRIAL FIBRILLATION Qualifiers: Atrial fibrillation type: paroxysmal Qualified Code(s): I48.0 - Paroxysmal atrial fibrillation (5) HTN (hypertension) Code(s): I10 - ESSENTIAL (PRIMARY) HYPERTENSION (6) Hyperlipidemia Code(s): E78.5 - HYPERLIPIDEMIA, UNSPECIFIED (7) Pleural effusion Code(s): J90 - PLEURAL EFFUSION, NOT ELSEWHERE CLASSIFIED (8) Shortness of breath Code(s): R06.02 - SHORTNESS OF BREATH Assessment/Plan IMP ACUTE ON CHRONIC CHF IMPROVING DYSPNEA IMPROVING S/P FALL BILATERAL PLEURAL EFFUSIONS R>L TRANSUDATE AFIB PULMONARY HTN HTN ANEMIA PLAN DIURETICS O2 DAILY WTS INHALED BRONCHODILATORS F/U CHEST X-RAY TODAY MONITOR CHEST TUBE DRAINAGE AC MONITOR LYTES,H+H DR AJ Problem List - Problems (1) Pulmonary HTN Code(s): I27.20 - PULMONARY HYPERTENSION, UNSPECIFIED (2) Diastolic CHF, acute on chronic Code(s): I50.33 - ACUTE ON CHRONIC DIASTOLIC (CONGESTIVE) HEART FAILURE (3) Acquired lymphedema of leg Code(s): I89.0 - LYMPHEDEMA, NOT ELSEWHERE CLASSIFIED (4) Atrial fibrillation Code(s): I48.91 - UNSPECIFIED ATRIAL FIBRILLATION Qualifiers: Atrial fibrillation type: paroxysmal Qualified Code(s): I48.0 - Paroxysmal atrial fibrillation (5) HTN (hypertension) Code(s): I10 - ESSENTIAL (PRIMARY) HYPERTENSION (6) Hyperlipidemia Code(s): E78.5 - HYPERLIPIDEMIA, UNSPECIFIED (7) Pleural effusion Code(s): J90 - PLEURAL EFFUSION, NOT ELSEWHERE CLASSIFIED (8) Shortness of breath Code(s): R06.02 - SHORTNESS OF BREATH
--- NOTE | 2018-07-22 11:47 | PN ---
Progress Note (short form) - Note Progress Note: History of Present Illness: edema feels worse, stable dyspnea. no cp, palps, dizziness Current Medications Albuterol/Ipratropium (Duoneb -) 1 amp NEB RQID [facility] Last Admin: 07/22/18 08:34 Dose: 1 amp Allopurinol (Zyloprim -) 100 mg PO DAILY [facility] Last Admin: 07/22/18 10:28 Dose: 100 mg Apixaban (Eliquis -) 2.5 mg PO BID [facility] Last Admin: 07/22/18 10:26 Dose: 2.5 mg Artificial Tears (Artificial Tears) 1 drop OU BID [facility] Last Admin: 07/22/18 10:27 Dose: 1 drop Atorvastatin Calcium (Lipitor -) 20 mg PO HS [facility] Last Admin: 07/21/18 22:05 Dose: 20 mg Cholecalciferol (Vitamin D3 -) 400 unit PO DAILY [facility] Last Admin: 07/22/18 10:28 Dose: 400 unit Diltiazem HCl (Cardizem Cd -) 180 mg PO DAILY [facility] Last Admin: 07/22/18 10:27 Dose: 180 mg Ferrous Gluconate (Fergon -) 324 mg PO DAILY [facility] Last Admin: 07/22/18 10:27 Dose: 324 mg Metoprolol Succinate (Toprol Xl -) 100 mg PO BID [facility] Last Admin: 07/22/18 10:27 Dose: 100 mg Multivitamins/Minerals/Vitamin C (Tab-A-Vit -) 1 tab PO DAILY [facility] Last Admin: 07/22/18 10:27 Dose: 1 tab Torsemide (Demadex -) 10 mg PO DAILY [facility] Last Admin: 07/22/18 10:27 Dose: 10 mg Vital Signs: Vital Signs Period Temp Pulse Resp BP Sys/Polk Pulse Ox Last 24 Hr 97.3 F-97.9 F 59-71 17-20 107-122/47-75 97-98 Constitutional: Yes: Well Nourished, No Distress Eyes: No: Sclera Icterus Respiratory: Yes: Diminished (R lower half). No: Accessory Muscle Use, Rales, Wheezes Gastrointestinal: Yes: Normal Bowel Sounds. No: Distention, Hepatomegaly, Palpable Mass, Tenderness Cardiovascular: Yes: Pulse Irregular JVD: no Heart Sounds: Yes: S1, S2. No: Gallop Murmur: No: Systolic Murmur, Diastolic Murmur Extremities: No: Cold, Cyanosis Edema: Yes (1+ pretib) Peripheral Pulses: 2+ Left Carotid, 2+ Right Carotid, 2+ Left Doralis Pedis, 2+ Right Dorsalis Pedis Integumentary: No: Jaundice Neurological: Yes: Alert, Oriented (x3) Psychiatric: No: Agitated Assessment/Plan ECG: afib, PVC. baseline wander artifact. NSTWAs diffusely--unchanged vs prior CT chest: large R effusion, small L. no pulm edema described Echo 02/14: ([facility]): LV not well seen. RV ??. mild (AV not well seen). mod-sev MR and TR. RVSP 40-50. Echo 06/2017: nl lv fn. mod rve. rv sys function moderately reduced. mild MR, mod TR. sev phtn. trivial pericardial effusion. Echo 2016: low-nl EF 50-55% (beat to beat variability). mod RV dilation, borderline depressed RV fxn. 1+ /MR, Mod TR, mod pHTN (avg TR 42 mmHg), Cath 2005: LVEDP 18, EF 60%. pRCA mild, pLAD mild, mLAD 50-60%, pLCx mild, OM1 mild. CT head: R occipital lobe infarct, likely old Carotid sono 2018: rt common carotid with mod plaque 50-69%. moderate plaque on left with borderline stenosis. 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 - ++ JVD on exam, with increase in abdomen distension and LE edema at home of late. - large R pleural effusion on CT scan (new vs 02/14 CXR)--? HF etiology? - suspect Afib HR control may be important in optimizing HF status (though may all be secondary to high filling pressures)--as disc'd - digoxin for RV inotropy previously given, not on recent office med list (not given here) - home meds: metoprolol 100 BID, diltiazem ER 180 qd, losartan 100 qd, torsemide 10 qd - consider add spironolactone as outpt, if cannot tolerate higher doses torsemide - 07/14-: Cr stable, sob improving, still with JVD/le edema, weight down on lasix 40 mg IV BID - 07/18 Cr rising, weight 195->196, lasix held today. may be able to transition to torsemide in AM - 07/19 Cr 1.4->1.8, weight stable. would hold diuretic - 07/20 Cr improving, weight increasing. dyspnea improved. hold lasix and IVF - 07/21 Cr improved. sob stable. stable edema. weight increasing, restart home torsemide, monitor Cr - 07/22 edema worsening, sob stable. lasix 40 mg IV ordered, reevaluate in AM - trend Cr, lytes, daily standing weight - s/p pigtail catheter for R pleural effusion 07/16 Afib - rate controlled with metoprolol and diltiazem during last admit here - dig off as of 04/16 office list (also given for RV inotropy in past)--? toxic levels. defer this med at this time - diltiazem may cause further suppression of RV contractility and worsen right sided HF--pt could consider AVN ablation and PM as an alternate treatment, vs amio--will defer this discussion to outpt setting since it is an elective, long- term issue if she otherwise remains stable from chf standpoint - on increased dose of metoprolol and home diltiazem with bradycardia and pauses noted overnight - decrease metoprolol to 100 mg BID and continue diltiazem 180 mg daily - previously was off AC due to h/o GI bleed/duodenal ulcer and pt deferred f/u with GI - old infarct noted on CT head last time here--Eliquis 2.5 bid started subsequently - cont eliquis elev troponin: - intermediate range not diagnostic of myocardial injury (in absence of clinical picture suspicious), flat trend not c/w ACS. - ECG non-ischemic CKD: -baseline creat 1.0-1.5 - now with HAILEY, improving HTN: -cont valsartan, diltiazem, metoprolol carotid atherosclerosis, - previously declined further imaging w/u as outpt - con't asa, statin prior tx plan
[2018-07-22] MEDS ORDERED: FUROSEMIDE 40 MG/4 ML INJECTABLE VIAL IVPUSH ONE (12:30)
--- NOTE | 2018-07-22 12:58 | PN ---
Physical Exam: SUBJECTIVE: Patient seen and examined this AM. She states her respiratory status is okay and her breathing feels pretty good. OBJECTIVE: Vital Signs Period Temp Pulse Resp BP Sys/Polk Pulse Ox Last 24 Hr 97.3 F-97.9 F 59-71 17-20 107-122/47-75 97-98 GENERAL: A&O, no acute distress HEAD: Normocephalic, atraumatic. EYES: PERRL, no scleral icterus EARS, NOSE, THROAT: oropharynx clear without exudates. Moist mucous membranes. NECK: supple without lymphadenopathy LUNGS: crackles throughout, decreased breath sounds in the right base, improving , chest tube in place. HEART: Irregularly irregular, systolic murmur ABDOMEN: Soft, nontender to palpation, normoactive bowel sounds MUSCULOSKELETAL: No bony deformities or tenderness. EXTREMITIES: warm, well-perfused. edema worse from yesterday SKIN: Warm, dry, no rashes or lesions noted Laboratory Results - last 24 hr 07/22/18 07/22/18 05:30 05:30 WBC 7.2 RBC 3.52 L Hgb 8.6 L Hct 27.9 L MCV 79.3 L MCH 24.5 L MCHC 31.0 L RDW 22.3 H Plt Count 189 MPV 8.7 Sodium 139 Potassium 5.4 H Chloride 103 Carbon Dioxide 28 Anion Gap 9 BUN 48 H Creatinine 1.5 H Creat Clearance w eGFR 32.70 Random Glucose 94 Calcium 8.2 L Phosphorus 4.6 Magnesium 2.7 H Active Medications Generic Name Dose Route Start Last Admin Trade Name Freq PRN Reason Stop Dose Admin Albuterol/Ipratropium 1 amp 07/16/18 12:00 07/22/18 11:54 Duoneb - NEB 1 amp RQID NO[facility]Í Administration Allopurinol 100 mg 07/16/18 10:00 07/22/18 10:28 Zyloprim - PO 100 mg DAILY NO[facility]Í Administration Apixaban 2.5 mg 07/16/18 22:00 07/22/18 10:26 Eliquis - PO 2.5 mg BID NOEMÍ Administration Artificial Tears 1 drop 07/21/18 10:00 07/22/18 10:27 Artificial Tears OU 1 drop BID [facility] Administration Atorvastatin Calcium 20 mg 07/16/18 22:00 07/21/18 22:05 Lipitor - PO 20 mg HS NOEMÍ Administration Cholecalciferol 400 unit 07/16/18 10:00 07/22/18 10:28 Vitamin D3 - PO 400 unit DAILY [facility] Administration Diltiazem HCl 180 mg 07/16/18 10:00 07/22/18 10:27 Cardizem Cd - PO 180 mg DAILY [facility] Administration Ferrous Gluconate 324 mg 07/16/18 10:00 07/22/18 10:27 Fergon - PO 324 mg DAILY [facility] Administration Metoprolol Succinate 100 mg 07/19/18 22:00 07/22/18 10:27 Toprol Xl - PO 100 mg BID NO[facility]Í Administration Multivitamins/Minerals/Vitamin C 1 tab 07/20/18 10:00 07/22/18 10:27 Tab-A-Vit - PO 1 tab DAILY [facility] Administration ASSESSMENT/PLAN: Pt is an 88 yo F with PMHx of GI bleed, afib (on eliquis), HTN, HLD, venous insuff with chronic lymphedema, OA, CHF (diastolic), back pain presenting from home after a fall but found to be SOB. Acute on Chronic Diastolic CHF -b/l effusions noted, Large on right, small on left, atelectasis noted -Pulm consult appreciated -Cardiology consult appreciated -Thoracentesis fluid consistent with Transudate -Chest tube still with drainage -Respiratory status improving -Continue home Torsemide 10 mg PO Daily -Lasix 40 mg IV today, reassess in AM UTI -Urine culture positive ESBL -ID consulted -watch off Abx for now Transaminitis -Resolved -RUQ US with heterogeneous liver -GI consult appreciated Fall -Denies LOC -CT noted without acute fracture or bleed -PT eval A-fib -Cardiology consult appreciated -Increase Toprol XL from 100 to 150 mg PO Daily -Can add cardizem if still elevated > 120 -Continue Cardizem, cardiology consideration appreciated -Lopressor 5 mg PO Q4 HTN -Diovan 320 mg PO Daily -Cardizem 180 mg PO Daily HLD -Lipitor 20 mg PO HS DVT Prophylaxis -Eliquis 2.5 mg PO BID FEN -Fluids: none -Electrolytes: No electrolyte abnormalities, BMP in AM -Nutrition: Na controlled diet Disposition Telemetry Visit type - Emergency Visit Emergency Visit: Yes ED Registration Date: 07/12/18 Care time: The patient presented to the Emergency Department on the above date and was hospitalized for further evaluation of their emergent condition. - New Patient This patient is new to me today: No - Critical Care Critical Care patient: No
--- NOTE | 2018-07-22 13:21 | EKG ---
Test Reason : Blood Pressure : / mmHG Vent. Rate : 065 BPM Atrial Rate : 066 BPM P-R Int : 000 ms QRS Dur : 100 ms QT Int : 420 ms P-R-T Axes : 000 099 112 degrees QTc Int : 436 ms ATRIAL FIBRILLATION RIGHTWARD AXIS ABNORMAL ECG WHEN COMPARED WITH ECG OF 12-JUL-2018 11:59, PREVIOUS ECG HAS UNDETERMINED RHYTHM, NEEDS REVIEW T WAVE INVERSION NO LONGER EVIDENT IN INFERIOR LEADS NONSPECIFIC T WAVE ABNORMALITY, IMPROVED IN ANTEROLATERAL LEADS QT HAS SHORTENED Confirmed by BOLIVAR HOOD, SHLOMO ([id number]) on 07/22/2018 1:21:20 PM Referred By: Edith TRINH Confirmed By:SHLOMO LUTZ MD
[2018-07-22 13:41] VITALS: BMI 33.6
--- NOTE | 2018-07-22 13:55 | PN ---
Teaching Attending Note Name of Resident: Louie Rubio ATTENDING PHYSICIAN STATEMENT I saw and evaluated the patient. I reviewed the resident's note and discussed the case with the resident. I agree with the resident's findings and plan as documented. SUBJECTIVE: OBJECTIVE: Vital Signs Period Temp Pulse Resp BP Sys/Polk Pulse Ox Last 24 Hr 97.3 F-97.9 F 59-71 17-20 107-122/47-75 97-98 Laboratory Results - last 24 hr 07/22/18 07/22/18 05:30 05:30 WBC 7.2 RBC 3.52 L Hgb 8.6 L Hct 27.9 L MCV 79.3 L MCH 24.5 L MCHC 31.0 L RDW 22.3 H Plt Count 189 MPV 8.7 Sodium 139 Potassium 5.4 H Chloride 103 Carbon Dioxide 28 Anion Gap 9 BUN 48 H Creatinine 1.5 H Creat Clearance w eGFR 32.70 Random Glucose 94 Calcium 8.2 L Phosphorus 4.6 Magnesium 2.7 H Current Medications Generic Name Dose Route Start Last Admin Trade Name Brandonq PRN Reason Stop Dose Admin Albuterol/Ipratropium 1 amp 07/16/18 12:00 07/22/18 11:54 Duoneb - NEB 1 amp RQID [facility] Administration Allopurinol 100 mg 07/16/18 10:00 07/22/18 10:28 Zyloprim - PO 100 mg DAILY [facility] Administration Apixaban 2.5 mg 07/16/18 22:00 07/22/18 10:26 Eliquis - PO 2.5 mg BID [facility] Administration Artificial Tears 1 drop 07/21/18 10:00 07/22/18 10:27 Artificial Tears OU 1 drop BID [facility] Administration Atorvastatin Calcium 20 mg 07/16/18 22:00 07/21/18 22:05 Lipitor - PO 20 mg HS NO[facility]Í Administration Cholecalciferol 400 unit 07/16/18 10:00 07/22/18 10:28 Vitamin D3 - PO 400 unit DAILY [facility] Administration Diltiazem HCl 180 mg 07/16/18 10:00 07/22/18 10:27 Cardizem Cd - PO 180 mg DAILY [facility] Administration Ferrous Gluconate 324 mg 07/16/18 10:00 07/22/18 10:27 Fergon - PO 324 mg DAILY [facility] Administration Metoprolol Succinate 100 mg 07/19/18 22:00 07/22/18 10:27 Toprol Xl - PO 100 mg BID NOEMÍ Administration Multivitamins/Minerals/Vitamin C 1 tab 07/20/18 10:00 07/22/18 10:27 Tab-A-Vit - PO 1 tab DAILY NO[facility]Í Administration ASSESSMENT AND PLAN:
[2018-07-22] MEDS: ATORVASTATIN CA 20 MG TABLET (FP) PO SCH (21:33)
[2018-07-23 07:47] LABS: HEMATOCRIT 28.7 % (32.4-45.2); MCH 24.9 pg (25.7-33.7); MCHC 31.2 g/dl (32.0-36.0); MEAN CELL VOLUME 79.7 fl (80-96); MEAN PLT VOLUME 8.7 fl (7.5-11.1); PLATELET COUNT 187 K/MM3 (134-434); WHITE BLOOD COUNT 7.3 K/mm3 (4.0-10.0)
[2018-07-23 08:20] LABS: ANION GAP 6 MMOL/L (8-16); BLOOD UREA NITROGEN 51 mg/dL (7-18); CALCIUM 8.8 mg/dL (8.5-10.1); CHLORIDE 103 mmol/L (98-107); CO2 31 mmol/L (21-32); CREATININE 1.6 mg/dL (0.55-1.3); GLUCOSE,RANDOM 85 mg/dL (74-106); MAGNESIUM 2.8 mg/dL (1.8-2.4); POTASSIUM 5.1 mmol/L (3.5-5.1); SODIUM 140 mmol/L (136-145)
[2018-07-23] MEDS: ALBUTEROL SO4 2.5/IPRATROPIUM 0.5 INH SOL 3 ML VIAL.NEB. NEB SCH ×4 (08:30→20:53)
[2018-07-23] MEDS ORDERED: PT OWN MED DRAWER 7, Y5N ONE (09:31)
--- NOTE | 2018-07-23 10:37 | PN ---
Progress Note (short form) - Note Progress Note: Resting in NAD. PleureX intact. No acute events overnight. Intake & Output 07/20/18 07/21/18 07/22/18 07/23/18 23:59 23:59 23:59 23:59 Intake Total 2077 260 310 0 Output Total 15 400 300 Balance 2 -140 10 0 Weight 201 lb 202 lb 3.2 oz 202 lb 6.4 oz Last Vital Signs Temp Pulse Resp BP Pulse Ox 98.2 F 72 20 133/64 97 07/23/18 09:48 07/23/18 09:48 07/23/18 09:48 07/23/18 09:48 07/23/18 09:00 Active Medications Albuterol/Ipratropium (Duoneb -) 1 amp NEB RQID [facility] Last Admin: 07/23/18 08:30 Dose: 1 amp Allopurinol (Zyloprim -) 100 mg PO DAILY [facility] Last Admin: 07/22/18 10:28 Dose: 100 mg Apixaban (Eliquis -) 2.5 mg PO BID [facility] Last Admin: 07/22/18 21:32 Dose: 2.5 mg Artificial Tears (Artificial Tears) 1 drop OU BID [facility] Last Admin: 07/22/18 21:33 Dose: 1 drop Atorvastatin Calcium (Lipitor -) 20 mg PO HS [facility] Last Admin: 07/22/18 21:33 Dose: 20 mg Cholecalciferol (Vitamin D3 -) 400 unit PO DAILY [facility] Last Admin: 07/22/18 10:28 Dose: 400 unit Diltiazem HCl (Cardizem Cd -) 180 mg PO DAILY [facility] Last Admin: 07/22/18 10:27 Dose: 180 mg Ferrous Gluconate (Fergon -) 324 mg PO DAILY [facility] Last Admin: 07/22/18 10:27 Dose: 324 mg Metoprolol Succinate (Toprol Xl -) 100 mg PO BID [facility] Last Admin: 07/22/18 21:33 Dose: 100 mg Multivitamins/Minerals/Vitamin C (Tab-A-Vit -) 1 tab PO DAILY [facility] Last Admin: 07/22/18 10:27 Dose: 1 tab Constitutional: Yes: NAD Eyes: Yes: WNL HENT: Yes: WNL Neck: Yes: WNL Cardiovascular: Yes: Pulse Irregular, S1, S2 Respiratory: Yes: Diminished, PleureX intact Gastrointestinal: Yes: Normal Bowel Sounds, Soft Extremities: Yes: WNL Edema: Yes Labs: Laboratory Results - last 24 hr 07/23/18 07/23/18 06:43 06:43 WBC 7.3 RBC 3.60 Hgb 9.0 L Hct 28.7 L MCV 79.7 L MCH 24.9 L MCHC 31.2 L RDW 23.0 H Plt Count 187 MPV 8.7 Sodium 140 Potassium 5.1 Chloride 103 Carbon Dioxide 31 Anion Gap 6 L BUN 51 H Creatinine 1.6 H Creat Clearance w eGFR 30.35 Random Glucose 85 Calcium 8.8 Phosphorus 5.0 H Magnesium 2.8 H Problem List - Problems (1) Pulmonary HTN Code(s): I27.20 - PULMONARY HYPERTENSION, UNSPECIFIED (2) Diastolic CHF, acute on chronic Code(s): I50.33 - ACUTE ON CHRONIC DIASTOLIC (CONGESTIVE) HEART FAILURE (3) Acquired lymphedema of leg Code(s): I89.0 - LYMPHEDEMA, NOT ELSEWHERE CLASSIFIED (4) Atrial fibrillation Code(s): I48.91 - UNSPECIFIED ATRIAL FIBRILLATION Qualifiers: Atrial fibrillation type: paroxysmal Qualified Code(s): I48.0 - Paroxysmal atrial fibrillation (5) HTN (hypertension) Code(s): I10 - ESSENTIAL (PRIMARY) HYPERTENSION (6) Hyperlipidemia Code(s): E78.5 - HYPERLIPIDEMIA, UNSPECIFIED (7) Pleural effusion Code(s): J90 - PLEURAL EFFUSION, NOT ELSEWHERE CLASSIFIED (8) Shortness of breath Code(s): R06.02 - SHORTNESS OF BREATH Assessment/Plan IMP ACUTE ON CHRONIC CHF IMPROVING DYSPNEA IMPROVING S/P FALL BILATERAL PLEURAL EFFUSIONS R>L TRANSUDATE AFIB PULMONARY HTN HTN ANEMIA PLAN DIURETICS O2 DAILY WTS INHALED BRONCHODILATORS MONITOR CHEST TUBE DRAINAGE: WILL NEED TO ARRANGE FOR HOME SERVICES AC DR MORENO
[2018-07-23] MEDS: FERROUS GLUCONATE 324 MG TAB (FP) PO SCH (10:40)
[2018-07-23] MEDS: APIXABAN 2.5 MG TABLET PO SCH ×2 (10:40→22:14)
[2018-07-23] MEDS: ALLOPURINOL 100 MG TABLET (FP) PO SCH (10:40)
[2018-07-23] MEDS: MULTIVITAMINS (DAILY MVI) TABLET (FP) PO SCH (10:40)
[2018-07-23] MEDS: CHOLECALCIFEROL (VITAMIN D3) 400 UNIT TABLET (FP) PO SCH (10:40)
[2018-07-23] MEDS: ARTIFICIAL TEARS (POLYVINYL ALCOHOL) OPTH DROPS OU SCH ×2 (10:41→22:14)
--- NOTE | 2018-07-23 11:51 | PN ---
Progress Note (short form) - Note Progress Note: History of Present Illness: no palps, dizziness, lightheadedness, cp, mild sob persists Current Medications Generic Name Dose Route Start Last Admin Trade Name Selena PRN Reason Stop Dose Admin Albuterol/Ipratropium 1 amp 07/16/18 12:00 07/23/18 11:46 Duoneb - NEB 1 amp RQID NOEMÍ Administration Allopurinol 100 mg 07/16/18 10:00 07/23/18 10:40 Zyloprim - PO 100 mg DAILY NOEMÍ Administration Apixaban 2.5 mg 07/16/18 22:00 07/23/18 10:40 Eliquis - PO 2.5 mg BID NOEMÍ Administration Artificial Tears 1 drop 07/21/18 10:00 07/23/18 10:41 Artificial Tears OU 1 drop BID NOEMÍ Administration Atorvastatin Calcium 20 mg 07/16/18 22:00 07/22/18 21:33 Lipitor - PO 20 mg HS NOEMÍ Administration Cholecalciferol 400 unit 07/16/18 10:00 07/23/18 10:40 Vitamin D3 - PO 400 unit DAILY NOEMÍ Administration Diltiazem HCl 180 mg 07/16/18 10:00 07/23/18 10:40 Cardizem Cd - PO 180 mg DAILY NOEMÍ Administration Ferrous Gluconate 324 mg 07/16/18 10:00 07/23/18 10:40 Fergon - PO 324 mg DAILY NOEMÍ Administration Metoprolol Succinate 100 mg 07/19/18 22:00 07/23/18 10:40 Toprol Xl - PO 100 mg BID NOEMÍ Administration Multivitamins/Minerals/Vitamin C 1 tab 07/20/18 10:00 07/23/18 10:40 Tab-A-Vit - PO 1 tab DAILY NOEMÍ Administration Torsemide 40 mg 07/23/18 12:00 Demadex - PO DAILY NOEMÍ Vital Signs Period Temp Pulse Resp BP Sys/Polk Pulse Ox Last 24 Hr 98.0 F-98.4 F 71-89 18-20 110-148/57-64 97-98 Constitutional: Yes: Well Nourished, No Distress Eyes: No: Sclera Icterus Respiratory: Yes: Diminished (R lower half). No: Accessory Muscle Use, Rales, Wheezes Gastrointestinal: Yes: Normal Bowel Sounds. No: Distention, Hepatomegaly, Palpable Mass, Tenderness Cardiovascular: Yes: Pulse Irregular JVD: Yes Heart Sounds: Yes: S1, S2. No: Gallop Murmur: No: Systolic Murmur, Diastolic Murmur Extremities: No: Cold, Cyanosis Edema: Yes (1+ pretib) Peripheral Pulses: 2+ Left Carotid, 2+ Right Carotid, 2+ Left Doralis Pedis, 2+ Right Dorsalis Pedis Integumentary: No: Jaundice Neurological: Yes: Alert, Oriented (x3) Psychiatric: No: Agitated CBC, BMP 07/23/18 06:43 07/23/18 06:43 ECG: afib, PVC. baseline wander artifact. NSTWAs diffusely--unchanged vs prior CT chest: large R effusion, small L. no pulm edema described Echo 02/14: ([facility]): LV not well seen. RV ??. mild (AV not well seen). mod-sev MR and TR. RVSP 40-50. Echo 06/2017: nl lv fn. mod rve. rv sys function moderately reduced. mild MR, mod TR. sev phtn. trivial pericardial effusion. Echo 2016: low-nl EF 50-55% (beat to beat variability). mod RV dilation, borderline depressed RV fxn. 1+ /MR, Mod TR, mod pHTN (avg TR 42 mmHg), Cath 2005: LVEDP 18, EF 60%. pRCA mild, pLAD mild, mLAD 50-60%, pLCx mild, OM1 mild. CT head: R occipital lobe infarct, likely old Carotid sono 2018: rt common carotid with mod plaque 50-69%. moderate plaque on left with borderline stenosis. 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 - ++ JVD on exam, with increase in abdomen distension and LE edema at home of late. - large R pleural effusion on CT scan (new vs 02/14 CXR)--? HF etiology? - suspect Afib HR control may be important in optimizing HF status (though may all be secondary to high filling pressures)--as disc'd - digoxin for RV inotropy previously given, not on recent office med list (not given here) - home meds: metoprolol 100 BID, diltiazem ER 180 qd, losartan 100 qd, torsemide 10 qd - consider add spironolactone as outpt, if cannot tolerate higher doses torsemide - 07/14-: Cr stable, sob improving, still with JVD/le edema, weight down on lasix 40 mg IV BID - 07/18 Cr rising, weight 195->196, lasix held today. may be able to transition to torsemide in AM - 07/19 Cr 1.4->1.8, weight stable. would hold diuretic - 07/20 Cr improving, weight increasing. dyspnea improved. hold lasix and IVF - 07/21 Cr improved. sob stable. stable edema. weight increasing, restart home torsemide, monitor Cr - 07/22 edema worsening, sob stable. lasix 40 mg IV ordered, reevaluate in AM -07/23: start torsemide at higher dose, 40 po qd - trend Cr, lytes, daily standing weight - s/p pigtail catheter for R pleural effusion 07/16 Afib - rate controlled with metoprolol and diltiazem during last admit here - dig off as of 04/16 office list (also given for RV inotropy in past)--? toxic levels. defer this med at this time - diltiazem may cause further suppression of RV contractility and worsen right sided HF--pt could consider AVN ablation and PM as an alternate treatment, vs amio--will defer this discussion to outpt setting since it is an elective, long- term issue if she otherwise remains stable from chf standpoint - on increased dose of metoprolol and home diltiazem with bradycardia and pauses noted overnight - decrease metoprolol to 100 mg BID and continue diltiazem 180 mg daily - previously was off AC due to h/o GI bleed/duodenal ulcer and pt deferred f/u with GI - old infarct noted on CT head last time here--Eliquis 2.5 bid started subsequently - cont eliquis elev troponin: - intermediate range not diagnostic of myocardial injury (in absence of clinical picture suspicious), flat trend not c/w ACS. - ECG non-ischemic CKD: -baseline creat 1.0-1.5 - now with HAILEY, close to baseline cr now HTN: -cont valsartan, diltiazem, metoprolol carotid atherosclerosis, - previously declined further imaging w/u as outpt - con't asa, statin prior tx plan
[2018-07-23] MEDS: TORSEMIDE 20 MG TABLET (FP) PO SCH (12:40)
--- NOTE | 2018-07-23 13:36 | PN ---
Teaching Attending Note Name of Resident: Louie Rubio ATTENDING PHYSICIAN STATEMENT I saw and evaluated the patient. I reviewed the resident's note and discussed the case with the resident. I agree with the resident's findings and plan as documented. SUBJECTIVE: OBJECTIVE: Vital Signs Period Temp Pulse Resp BP Sys/Polk Pulse Ox Last 24 Hr 98.0 F-98.4 F 71-89 18-20 110-148/57-64 97-98 Laboratory Results - last 24 hr 07/23/18 07/23/18 06:43 06:43 WBC 7.3 RBC 3.60 Hgb 9.0 L Hct 28.7 L MCV 79.7 L MCH 24.9 L MCHC 31.2 L RDW 23.0 H Plt Count 187 MPV 8.7 Sodium 140 Potassium 5.1 Chloride 103 Carbon Dioxide 31 Anion Gap 6 L BUN 51 H Creatinine 1.6 H Creat Clearance w eGFR 30.35 Random Glucose 85 Calcium 8.8 Phosphorus 5.0 H Magnesium 2.8 H Current Medications Generic Name Dose Route Start Last Admin Trade Name Brandonq PRN Reason Stop Dose Admin Albuterol/Ipratropium 1 amp 07/16/18 12:00 07/23/18 11:46 Duoneb - NEB 1 amp RQID NOEMÍ Administration Allopurinol 100 mg 07/16/18 10:00 07/23/18 10:40 Zyloprim - PO 100 mg DAILY NOEMÍ Administration Apixaban 2.5 mg 07/16/18 22:00 07/23/18 10:40 Eliquis - PO 2.5 mg BID NOEMÍ Administration Artificial Tears 1 drop 07/21/18 10:00 07/23/18 10:41 Artificial Tears OU 1 drop BID NOEMÍ Administration Atorvastatin Calcium 20 mg 07/16/18 22:00 07/22/18 21:33 Lipitor - PO 20 mg HS NOEMÍ Administration Cholecalciferol 400 unit 07/16/18 10:00 07/23/18 10:40 Vitamin D3 - PO 400 unit DAILY NOEMÍ Administration Diltiazem HCl 180 mg 07/16/18 10:00 07/23/18 10:40 Cardizem Cd - PO 180 mg DAILY NOEMÍ Administration Ferrous Gluconate 324 mg 07/16/18 10:00 07/23/18 10:40 Fergon - PO 324 mg DAILY NOEMÍ Administration Metoprolol Succinate 100 mg 07/19/18 22:00 07/23/18 10:40 Toprol Xl - PO 100 mg BID NOEMÍ Administration Multivitamins/Minerals/Vitamin C 1 tab 07/20/18 10:00 07/23/18 10:40 Tab-A-Vit - PO 1 tab DAILY NOEMÍ Administration Torsemide 40 mg 07/23/18 12:00 07/23/18 12:40 Demadex - PO 40 mg DAILY NOEMÍ Administration ASSESSMENT AND PLAN:
--- NOTE | 2018-07-23 14:02 | PN ---
Physical Exam: SUBJECTIVE: Patient seen and examined this AM. She is currently not having any complaints this morning. OBJECTIVE: Vital Signs Period Temp Pulse Resp BP Sys/Polk Pulse Ox Last 24 Hr 98.0 F-98.4 F 71-89 18-20 110-148/57-64 97-98 GENERAL: A&O, no acute distress HEAD: Normocephalic, atraumatic. EYES: PERRL, no scleral icterus EARS, NOSE, THROAT: oropharynx clear without exudates. Moist mucous membranes. NECK: supple without lymphadenopathy LUNGS: decreased breath sounds in the left base, right chest tube in place. HEART: Irregularly irregular, systolic murmur ABDOMEN: Soft, nontender to palpation, normoactive bowel sounds MUSCULOSKELETAL: No bony deformities or tenderness. EXTREMITIES: warm, well-perfused. edema similar to yesterday SKIN: Warm, dry, no rashes or lesions noted Laboratory Results - last 24 hr 07/23/18 07/23/18 06:43 06:43 WBC 7.3 RBC 3.60 Hgb 9.0 L Hct 28.7 L MCV 79.7 L MCH 24.9 L MCHC 31.2 L RDW 23.0 H Plt Count 187 MPV 8.7 Sodium 140 Potassium 5.1 Chloride 103 Carbon Dioxide 31 Anion Gap 6 L BUN 51 H Creatinine 1.6 H Creat Clearance w eGFR 30.35 Random Glucose 85 Calcium 8.8 Phosphorus 5.0 H Magnesium 2.8 H Active Medications Generic Name Dose Route Start Last Admin Trade Name Freq PRN Reason Stop Dose Admin Albuterol/Ipratropium 1 amp 07/16/18 12:00 07/23/18 11:46 Duoneb - NEB 1 amp RQID NOEMÍ Administration Allopurinol 100 mg 07/16/18 10:00 07/23/18 10:40 Zyloprim - PO 100 mg DAILY NOEMÍ Administration Apixaban 2.5 mg 07/16/18 22:00 07/23/18 10:40 Eliquis - PO 2.5 mg BID NOEMÍ Administration Artificial Tears 1 drop 07/21/18 10:00 07/23/18 10:41 Artificial Tears OU 1 drop BID NOEMÍ Administration Atorvastatin Calcium 20 mg 07/16/18 22:00 07/22/18 21:33 Lipitor - PO 20 mg HS NOEMÍ Administration Cholecalciferol 400 unit 07/16/18 10:00 07/23/18 10:40 Vitamin D3 - PO 400 unit DAILY NOEMÍ Administration Diltiazem HCl 180 mg 07/16/18 10:00 07/23/18 10:40 Cardizem Cd - PO 180 mg DAILY NOEMÍ Administration Ferrous Gluconate 324 mg 07/16/18 10:00 07/23/18 10:40 Fergon - PO 324 mg DAILY NOEMÍ Administration Metoprolol Succinate 100 mg 07/19/18 22:00 07/23/18 10:40 Toprol Xl - PO 100 mg BID NOEMÍ Administration Multivitamins/Minerals/Vitamin C 1 tab 07/20/18 10:00 07/23/18 10:40 Tab-A-Vit - PO 1 tab DAILY NOEMÍ Administration Torsemide 40 mg 07/23/18 12:00 07/23/18 12:40 Demadex - PO 40 mg DAILY NOEMÍ Administration ASSESSMENT/PLAN: Pt is an 88 yo F with PMHx of GI bleed, afib (on eliquis), HTN, HLD, venous insuff with chronic lymphedema, OA, CHF (diastolic), back pain presenting from home after a fall but found to be SOB. Acute on Chronic Diastolic CHF -b/l effusions noted, Large on right, small on left, atelectasis noted -Pulm consult appreciated -Cardiology consult appreciated -Thoracentesis fluid consistent with Transudate -Chest tube still with some drainage, discussed with pulmonology, chest tube can be d/c from their standpoint -Respiratory status improving -Increase Torsemide 10 mg PO Daily to 40 mg PO Daily HAILEY -Trend BMP -continue diuretics but monitor BUN/Cr -Renal consult appreciated UTI -Urine culture positive ESBL -ID consulted -watch off Abx for now Transaminitis -Resolved -RUQ US with heterogeneous liver -GI consult appreciated Fall -Denies LOC -CT noted without acute fracture or bleed -PT eval A-fib -Cardiology consult appreciated -Increase Toprol XL from 100 to 150 mg PO Daily -Can add cardizem if still elevated > 120 -Continue Cardizem, cardiology consideration appreciated -Lopressor 5 mg PO Q4 HTN -Diovan 320 mg PO Daily -Cardizem 180 mg PO Daily HLD -Lipitor 20 mg PO HS DVT Prophylaxis -Eliquis 2.5 mg PO BID FEN -Fluids: none -Electrolytes: No electrolyte abnormalities, BMP in AM -Nutrition: Na controlled diet Disposition Telemetry Visit type - Emergency Visit Emergency Visit: Yes ED Registration Date: 07/12/18 Care time: The patient presented to the Emergency Department on the above date and was hospitalized for further evaluation of their emergent condition. - New Patient This patient is new to me today: No - Critical Care Critical Care patient: No
--- NOTE | 2018-07-23 18:47 | PN ---
Progress Note, Physician History of Present Illness: Pt seen and examined at bedside. She complains of edema. - Current Medication List Current Medications: Active Medications Albuterol/Ipratropium (Duoneb -) 1 amp NEB RQID [facility] Last Admin: 07/23/18 16:24 Dose: 1 amp Allopurinol (Zyloprim -) 100 mg PO DAILY [facility] Last Admin: 07/23/18 10:40 Dose: 100 mg Apixaban (Eliquis -) 2.5 mg PO BID [facility] Last Admin: 07/23/18 10:40 Dose: 2.5 mg Artificial Tears (Artificial Tears) 1 drop OU BID [facility] Last Admin: 07/23/18 10:41 Dose: 1 drop Atorvastatin Calcium (Lipitor -) 20 mg PO HS [facility] Last Admin: 07/22/18 21:33 Dose: 20 mg Cholecalciferol (Vitamin D3 -) 400 unit PO DAILY [facility] Last Admin: 07/23/18 10:40 Dose: 400 unit Diltiazem HCl (Cardizem Cd -) 180 mg PO DAILY [facility] Last Admin: 07/23/18 10:40 Dose: 180 mg Ferrous Gluconate (Fergon -) 324 mg PO DAILY [facility] Last Admin: 07/23/18 10:40 Dose: 324 mg Metoprolol Succinate (Toprol Xl -) 100 mg PO BID [facility] Last Admin: 07/23/18 10:40 Dose: 100 mg Multivitamins/Minerals/Vitamin C (Tab-A-Vit -) 1 tab PO DAILY [facility] Last Admin: 07/23/18 10:40 Dose: 1 tab Torsemide (Demadex -) 40 mg PO DAILY [facility] Last Admin: 07/23/18 12:40 Dose: 40 mg - Objective Vital Signs: Vital Signs Temperature 98.4 F 07/23/18 15:12 Pulse Rate 78 07/23/18 15:12 Respiratory Rate 20 07/23/18 15:12 Blood Pressure 127/52 L 07/23/18 15:12 O2 Sat by Pulse Oximetry (%) 97 07/23/18 09:00 Constitutional: Yes: Calm Eyes: Yes: Conjunctiva Clear HENT: Yes: Atraumatic Neck: Yes: Supple Cardiovascular: Yes: S1, S2 Respiratory: Yes: Other (chest tube) Genitourinary: Yes: WNL Edema: Yes Edema: LLE: 2+, RLE: 2+ Neurological: Yes: Oriented Psychiatric: Yes: Oriented Labs: CBC, BMP 07/23/18 06:43 07/23/18 06:43 INR, PTT INR 1.25 (0.83-1.09) H 07/16/18 16:30 Problem List - Problems (1) HAILEY (acute kidney injury) Code(s): N17.9 - ACUTE KIDNEY FAILURE, UNSPECIFIED (2) Pleural effusion Code(s): J90 - PLEURAL EFFUSION, NOT ELSEWHERE CLASSIFIED (3) Pulmonary HTN Code(s): I27.20 - PULMONARY HYPERTENSION, UNSPECIFIED (4) Diastolic CHF, acute on chronic Code(s): I50.33 - ACUTE ON CHRONIC DIASTOLIC (CONGESTIVE) HEART FAILURE Assessment/Plan Current Medications Generic Name Dose Route Start Last Admin Trade Name Freq PRN Reason Stop Dose Admin Albuterol/Ipratropium 1 amp 07/16/18 12:00 07/23/18 16:24 Duoneb - NEB 1 amp RQID NOEMÍ Administration Allopurinol 100 mg 07/16/18 10:00 07/23/18 10:40 Zyloprim - PO 100 mg DAILY NOEMÍ Administration Apixaban 2.5 mg 07/16/18 22:00 07/23/18 10:40 Eliquis - PO 2.5 mg BID NOEMÍ Administration Artificial Tears 1 drop 07/21/18 10:00 07/23/18 10:41 Artificial Tears OU 1 drop BID NOEMÍ Administration Atorvastatin Calcium 20 mg 07/16/18 22:00 07/22/18 21:33 Lipitor - PO 20 mg HS NOEMÍ Administration Cholecalciferol 400 unit 07/16/18 10:00 07/23/18 10:40 Vitamin D3 - PO 400 unit DAILY NOEMÍ Administration Diltiazem HCl 180 mg 07/16/18 10:00 07/23/18 10:40 Cardizem Cd - PO 180 mg DAILY NOEMÍ Administration Ferrous Gluconate 324 mg 07/16/18 10:00 07/23/18 10:40 Fergon - PO 324 mg DAILY NOEMÍ Administration Metoprolol Succinate 100 mg 07/19/18 22:00 07/23/18 10:40 Toprol Xl - PO 100 mg BID NOEMÍ Administration Multivitamins/Minerals/Vitamin C 1 tab 07/20/18 10:00 07/23/18 10:40 Tab-A-Vit - PO 1 tab DAILY NOEMÍ Administration Torsemide 40 mg 07/23/18 12:00 07/23/18 12:40 Demadex - PO 40 mg DAILY NOEMÍ Administration Impression 1. HAILEY 2. hyperkalemia 3. CHF 4. pleural effusion 5. HTN 6. pulm htn 7. a-fib 8. anemia 9. proteinuria Plan - agree with higher dose of lasix - change ensure to nepro - monitor potassium level - pulm follow up - cardio input appreciated - chest tube care Dr Pkie
[2018-07-23] MEDS: ATORVASTATIN CA 20 MG TABLET (FP) PO SCH (22:13)
[2018-07-24 06:56] LABS: HEMOGLOBIN 8.2 GM/dL (10.7-15.3); MCHC 31.6 g/dl (32.0-36.0); MEAN CELL VOLUME 79.2 fl (80-96); MEAN PLT VOLUME 8.9 fl (7.5-11.1); PLATELET COUNT 173 K/MM3 (134-434); RBC 3.28 M/mm3 (3.60-5.2); RDW 22.7 % (11.6-15.6); WHITE BLOOD COUNT 7.2 K/mm3 (4.0-10.0)
[2018-07-24 07:21] LABS: ANION GAP 8 MMOL/L (8-16); BLOOD UREA NITROGEN 51 mg/dL (7-18); CALCIUM 8.5 mg/dL (8.5-10.1); CHLORIDE 102 mmol/L (98-107); CO2 31 mmol/L (21-32); CREATININE 1.6 mg/dL (0.55-1.3); GLUCOSE,RANDOM 86 mg/dL (74-106); POTASSIUM 4.3 mmol/L (3.5-5.1); SODIUM 140 mmol/L (136-145)
[2018-07-24] MEDS: ALBUTEROL SO4 2.5/IPRATROPIUM 0.5 INH SOL 3 ML VIAL.NEB. NEB SCH ×4 (07:35→20:26)
[2018-07-24] MEDS ORDERED: PT OWN MED DRAWER 7, Y5N ONE (08:34)
--- NOTE | 2018-07-24 09:19 | PN ---
Physical Exam: SUBJECTIVE: Patient seen and examined this AM. She states she is feeling well. She denies any SOB or pain. She states her legs feel about the same but she thinks they could be better if she was up and more ambulatory. OBJECTIVE: Vital Signs Period Temp Pulse Resp BP Sys/Polk Pulse Ox Last 24 Hr 97.4 F-98.4 F 66-78 20-20 111-133/42-78 96 GENERAL: A&O, no acute distress HEAD: Normocephalic, atraumatic. EYES: PERRL, no scleral icterus EARS, NOSE, THROAT: oropharynx clear without exudates. Moist mucous membranes. NECK: supple without lymphadenopathy LUNGS: decreased breath sounds in the left base, right chest tube in place. HEART: Irregularly irregular, systolic murmur ABDOMEN: Soft, nontender to palpation, normoactive bowel sounds MUSCULOSKELETAL: No bony deformities or tenderness. EXTREMITIES: warm, well-perfused. edema similar to yesterday SKIN: Warm, dry, no rashes or lesions noted Laboratory Results - last 24 hr 07/24/18 07/24/18 05:30 05:30 WBC 7.2 RBC 3.28 L Hgb 8.2 L Hct 26.0 L MCV 79.2 L MCH 25.0 L MCHC 31.6 L RDW 22.7 H Plt Count 173 MPV 8.9 Sodium 140 Potassium 4.3 Chloride 102 Carbon Dioxide 31 Anion Gap 8 BUN 51 H Creatinine 1.6 H Creat Clearance w eGFR 30.35 Random Glucose 86 Calcium 8.5 Active Medications Generic Name Dose Route Start Last Admin Trade Name Freq PRN Reason Stop Dose Admin Albuterol/Ipratropium 1 amp 07/16/18 12:00 07/23/18 20:53 Duoneb - NEB Not Given RQID NOEMÍ Allopurinol 100 mg 07/16/18 10:00 07/23/18 10:40 Zyloprim - PO 100 mg DAILY NOEMÍ Administration Apixaban 2.5 mg 07/16/18 22:00 07/23/18 22:14 Eliquis - PO 2.5 mg BID NOEMÍ Administration Artificial Tears 1 drop 07/21/18 10:00 07/23/18 22:14 Artificial Tears OU 1 drop BID NOEMÍ Administration Atorvastatin Calcium 20 mg 07/16/18 22:00 07/23/18 22:13 Lipitor - PO 20 mg HS NOEMÍ Administration Cholecalciferol 400 unit 07/16/18 10:00 07/23/18 10:40 Vitamin D3 - PO 400 unit DAILY NOEMÍ Administration Diltiazem HCl 180 mg 07/16/18 10:00 07/23/18 10:40 Cardizem Cd - PO 180 mg DAILY NOEMÍ Administration Ferrous Gluconate 324 mg 07/16/18 10:00 07/23/18 10:40 Fergon - PO 324 mg DAILY NOEMÍ Administration Metoprolol Succinate 100 mg 07/19/18 22:00 07/23/18 22:13 Toprol Xl - PO 100 mg BID NOEMÍ Administration Multivitamins/Minerals/Vitamin C 1 tab 07/20/18 10:00 07/23/18 10:40 Tab-A-Vit - PO 1 tab DAILY NOEMÍ Administration Torsemide 40 mg 07/23/18 12:00 07/23/18 12:40 Demadex - PO 40 mg DAILY NOEMÍ Administration ASSESSMENT/PLAN: Pt is an 88 yo F with PMHx of GI bleed, afib (on eliquis), HTN, HLD, venous insuff with chronic lymphedema, OA, CHF (diastolic), back pain presenting from home after a fall but found to be SOB. Acute on Chronic Diastolic CHF -b/l effusions noted, Large on right, small on left, atelectasis noted -Pulm consult appreciated -Cardiology consult appreciated -Thoracentesis fluid consistent with Transudate -Chest tube still with some drainage, discussed with pulmonology, chest tube can be d/c from their standpoint -Respiratory status improving -Increase Torsemide 10 mg PO Daily to 40 mg PO Daily, weight still increasing, will await further cardiology recommendations -Discussed with IR who recommends capping the catheter and reevaluate with CXR friday morning, reopen if patient becomes symptomatic prior to friday HAILEY -Trend BMP -continue diuretics but monitor BUN/Cr -Renal consult appreciated UTI -Urine culture positive ESBL -ID consulted -watch off Abx for now Transaminitis -Resolved -RUQ US with heterogeneous liver -GI consult appreciated Fall -Denies LOC -CT noted without acute fracture or bleed -PT eval A-fib -Cardiology consult appreciated -Increase Toprol XL from 100 to 150 mg PO Daily -Can add cardizem if still elevated > 120 -Continue Cardizem, cardiology consideration appreciated -Lopressor 5 mg PO Q4 HTN -Diovan 320 mg PO Daily -Cardizem 180 mg PO Daily HLD -Lipitor 20 mg PO HS DVT Prophylaxis -Eliquis 2.5 mg PO BID FEN -Fluids: none -Electrolytes: No electrolyte abnormalities, BMP in AM -Nutrition: Na controlled diet Disposition Telemetry Visit type - Emergency Visit Emergency Visit: Yes ED Registration Date: 07/12/18 Care time: The patient presented to the Emergency Department on the above date and was hospitalized for further evaluation of their emergent condition. - New Patient This patient is new to me today: No - Critical Care Critical Care patient: No
[2018-07-24] MEDS: TORSEMIDE 20 MG TABLET (FP) PO SCH (09:48)
[2018-07-24] MEDS: ARTIFICIAL TEARS (POLYVINYL ALCOHOL) OPTH DROPS OU SCH ×2 (09:48→22:39)
[2018-07-24] MEDS: CHOLECALCIFEROL (VITAMIN D3) 400 UNIT TABLET (FP) PO SCH (09:48)
[2018-07-24] MEDS: MULTIVITAMINS (DAILY MVI) TABLET (FP) PO SCH (09:49)
[2018-07-24] MEDS: ALLOPURINOL 100 MG TABLET (FP) PO SCH (09:49)
[2018-07-24] MEDS: APIXABAN 2.5 MG TABLET PO SCH ×2 (09:49→22:39)
[2018-07-24] MEDS: FERROUS GLUCONATE 324 MG TAB (FP) PO SCH (09:49)
--- NOTE | 2018-07-24 11:21 | PN ---
Progress Note (short form) - Note Progress Note: PULMONARY Resting in NAD. Pig tail in right pleural space with 160 cc drainage overnight vss Constitutional: Yes: NAD Eyes: Yes: WNL HENT: Yes: WNL Neck: Yes: WNL Cardiovascular: Yes: Pulse Irregular, S1, S2 Respiratory: Yes: Diminished, PleureX intact Gastrointestinal: Yes: Normal Bowel Sounds, Soft Extremities: Yes: WNL Edema: Yes CXR REVIEWED Problem List - Problems (1) Pulmonary HTN Code(s): I27.20 - PULMONARY HYPERTENSION, UNSPECIFIED (2) Diastolic CHF, acute on chronic Code(s): I50.33 - ACUTE ON CHRONIC DIASTOLIC (CONGESTIVE) HEART FAILURE (3) Acquired lymphedema of leg Code(s): I89.0 - LYMPHEDEMA, NOT ELSEWHERE CLASSIFIED (4) Atrial fibrillation Code(s): I48.91 - UNSPECIFIED ATRIAL FIBRILLATION Qualifiers: Atrial fibrillation type: paroxysmal Qualified Code(s): I48.0 - Paroxysmal atrial fibrillation (5) HTN (hypertension) Code(s): I10 - ESSENTIAL (PRIMARY) HYPERTENSION (6) Hyperlipidemia Code(s): E78.5 - HYPERLIPIDEMIA, UNSPECIFIED (7) Pleural effusion Code(s): J90 - PLEURAL EFFUSION, NOT ELSEWHERE CLASSIFIED (8) Shortness of breath Code(s): R06.02 - SHORTNESS OF BREATH Assessment/Plan IMP ACUTE ON CHRONIC CHF IMPROVING DYSPNEA IMPROVING S/P FALL BILATERAL PLEURAL EFFUSIONS R>L TRANSUDATE AFIB PULMONARY HTN HTN ANEMIA PLAN DIURETICS/CONTINUE DRAINAGE FOR NOW O2 DAILY WTS INHALED BRONCHODILATORS MONITOR CHEST TUBE DRAINAGE: WILL NEED TO ARRANGE FOR HOME SERVICES ZAHIRA GUTIERREZ MD
--- NOTE | 2018-07-24 12:32 | PN ---
Progress Note, Physician History of Present Illness: Pt seen and examined at bedside. She is awake and alert. She feels that her lower ext edema is starting to get better. - Current Medication List Current Medications: Active Medications Albuterol/Ipratropium (Duoneb -) 1 amp NEB RQID [facility] Last Admin: 07/24/18 11:43 Dose: 1 amp Allopurinol (Zyloprim -) 100 mg PO DAILY [facility] Last Admin: 07/24/18 09:49 Dose: 100 mg Apixaban (Eliquis -) 2.5 mg PO BID [facility] Last Admin: 07/24/18 09:49 Dose: 2.5 mg Artificial Tears (Artificial Tears) 1 drop OU BID [facility] Last Admin: 07/24/18 09:48 Dose: 1 drop Atorvastatin Calcium (Lipitor -) 20 mg PO HS [facility] Last Admin: 07/23/18 22:13 Dose: 20 mg Cholecalciferol (Vitamin D3 -) 400 unit PO DAILY [facility] Last Admin: 07/24/18 09:48 Dose: 400 unit Diltiazem HCl (Cardizem Cd -) 180 mg PO DAILY [facility] Last Admin: 07/24/18 09:48 Dose: 180 mg Ferrous Gluconate (Fergon -) 324 mg PO DAILY [facility] Last Admin: 07/24/18 09:49 Dose: 324 mg Metoprolol Succinate (Toprol Xl -) 100 mg PO BID [facility] Last Admin: 07/24/18 09:48 Dose: 100 mg Multivitamins/Minerals/Vitamin C (Tab-A-Vit -) 1 tab PO DAILY [facility] Last Admin: 07/24/18 09:49 Dose: 1 tab Torsemide (Demadex -) 40 mg PO DAILY [facility] Last Admin: 07/24/18 09:48 Dose: 40 mg - Objective Vital Signs: Vital Signs Temperature 97.6 F 07/24/18 10:00 Pulse Rate 71 07/24/18 10:00 Respiratory Rate 20 07/24/18 10:00 Blood Pressure 131/60 07/24/18 10:00 O2 Sat by Pulse Oximetry (%) 93 L 07/24/18 09:00 Constitutional: Yes: Calm Eyes: Yes: Conjunctiva Clear HENT: Yes: Atraumatic Neck: Yes: Supple Cardiovascular: Yes: S1, S2 Respiratory: Yes: On Nasal O2, Other (chest tube) Gastrointestinal: Yes: Soft, Abdomen, Obese Musculoskeletal: Yes: WNL Edema: Yes Edema: LLE: 2+, RLE: 2+ Neurological: Yes: Oriented Psychiatric: Yes: Oriented Labs: CBC, BMP 07/24/18 05:30 07/24/18 05:30 INR, PTT INR 1.25 (0.83-1.09) H 07/16/18 16:30 Problem List - Problems (1) HAILEY (acute kidney injury) Code(s): N17.9 - ACUTE KIDNEY FAILURE, UNSPECIFIED (2) Pleural effusion Code(s): J90 - PLEURAL EFFUSION, NOT ELSEWHERE CLASSIFIED (3) Pulmonary HTN Code(s): I27.20 - PULMONARY HYPERTENSION, UNSPECIFIED (4) Diastolic CHF, acute on chronic Code(s): I50.33 - ACUTE ON CHRONIC DIASTOLIC (CONGESTIVE) HEART FAILURE Assessment/Plan Current Medications Generic Name Dose Route Start Last Admin Trade Name Freq PRN Reason Stop Dose Admin Albuterol/Ipratropium 1 amp 07/16/18 12:00 07/24/18 11:43 Duoneb - NEB 1 amp RQID [facility]Í Administration Allopurinol 100 mg 07/16/18 10:00 07/24/18 09:49 Zyloprim - PO 100 mg DAILY [facility] Administration Apixaban 2.5 mg 07/16/18 22:00 07/24/18 09:49 Eliquis - PO 2.5 mg BID [facility] Administration Artificial Tears 1 drop 07/21/18 10:00 07/24/18 09:48 Artificial Tears OU 1 drop BID [facility] Administration Atorvastatin Calcium 20 mg 07/16/18 22:00 07/23/18 22:13 Lipitor - PO 20 mg HS NO[facility]Í Administration Cholecalciferol 400 unit 07/16/18 10:00 07/24/18 09:48 Vitamin D3 - PO 400 unit DAILY [facility] Administration Diltiazem HCl 180 mg 07/16/18 10:00 07/24/18 09:48 Cardizem Cd - PO 180 mg DAILY [facility] Administration Ferrous Gluconate 324 mg 07/16/18 10:00 07/24/18 09:49 Fergon - PO 324 mg DAILY [facility] Administration Metoprolol Succinate 100 mg 07/19/18 22:00 07/24/18 09:48 Toprol Xl - PO 100 mg BID NO[facility] Administration Multivitamins/Minerals/Vitamin C 1 tab 07/20/18 10:00 07/24/18 09:49 Tab-A-Vit - PO 1 tab DAILY [facility] Administration Torsemide 40 mg 07/23/18 12:00 07/24/18 09:48 Demadex - PO 40 mg DAILY [facility] Administration Impression 1. HAILEY 2. hyperkalemia 3. CHF 4. pleural effusion 5. HTN 6. pulm htn 7. a-fib 8. anemia 9. proteinuria Plan - cont with torsemide - monitor renal function - change supplements to nepro - restart arb at lower dose if potassium stays stable and when renal function stabilizes - monitor potassium level - pulm follow up - cardio input appreciated - chest tube care Dr Pike
--- NOTE | 2018-07-24 12:40 | PN ---
Progress Note (short form) - Note Progress Note: History of Present Illness: no palps, dizziness, lightheadedness, cp, sob better Current Medications Generic Name Dose Route Start Last Admin Trade Name Selena PRN Reason Stop Dose Admin Albuterol/Ipratropium 1 amp 07/16/18 12:00 07/24/18 11:43 Duoneb - NEB 1 amp RQID [facility] Administration Allopurinol 100 mg 07/16/18 10:00 07/24/18 09:49 Zyloprim - PO 100 mg DAILY [facility] Administration Apixaban 2.5 mg 07/16/18 22:00 07/24/18 09:49 Eliquis - PO 2.5 mg BID NO[facility] Administration Artificial Tears 1 drop 07/21/18 10:00 07/24/18 09:48 Artificial Tears OU 1 drop BID [facility] Administration Atorvastatin Calcium 20 mg 07/16/18 22:00 07/23/18 22:13 Lipitor - PO 20 mg HS NO[facility]Í Administration Cholecalciferol 400 unit 07/16/18 10:00 07/24/18 09:48 Vitamin D3 - PO 400 unit DAILY [facility] Administration Diltiazem HCl 180 mg 07/16/18 10:00 07/24/18 09:48 Cardizem Cd - PO 180 mg DAILY [facility] Administration Ferrous Gluconate 324 mg 07/16/18 10:00 07/24/18 09:49 Fergon - PO 324 mg DAILY [facility] Administration Metoprolol Succinate 100 mg 07/19/18 22:00 07/24/18 09:48 Toprol Xl - PO 100 mg BID [facility] Administration Multivitamins/Minerals/Vitamin C 1 tab 07/20/18 10:00 07/24/18 09:49 Tab-A-Vit - PO 1 tab DAILY [facility] Administration Torsemide 40 mg 07/23/18 12:00 07/24/18 09:48 Demadex - PO 40 mg DAILY [facility] Administration Vital Signs Period Temp Pulse Resp BP Sys/Polk Pulse Ox Last 24 Hr 97.4 F-98.4 F 66-78 20-20 111-131/42-78 93-96 Constitutional: Yes: Well Nourished, No Distress Eyes: No: Sclera Icterus Respiratory: Yes: Diminished (R base). No: Accessory Muscle Use, Rales, Wheezes Gastrointestinal: Yes: Normal Bowel Sounds. No: Distention, Hepatomegaly, Palpable Mass, Tenderness Cardiovascular: Yes: Pulse Irregular JVD: Yes Heart Sounds: Yes: S1, S2. No: Gallop Murmur: No: Systolic Murmur, Diastolic Murmur Extremities: No: Cold, Cyanosis Edema: Yes (1+ pretib) Peripheral Pulses: 2+ Left Carotid, 2+ Right Carotid, 2+ Left Doralis Pedis, 2+ Right Dorsalis Pedis Integumentary: No: Jaundice Neurological: Yes: Alert, Oriented (x3) Psychiatric: No: Agitated CBC, BMP 07/24/18 05:30 07/24/18 05:30 ECG: afib, PVC. baseline wander artifact. NSTWAs diffusely--unchanged vs prior CT chest: large R effusion, small L. no pulm edema described Echo 02/14: ([facility]): LV not well seen. RV ??. mild (AV not well seen). mod-sev MR and TR. RVSP 40-50. Echo 06/2017: nl lv fn. mod rve. rv sys function moderately reduced. mild MR, mod TR. sev phtn. trivial pericardial effusion. Echo 2016: low-nl EF 50-55% (beat to beat variability). mod RV dilation, borderline depressed RV fxn. 1+ /MR, Mod TR, mod pHTN (avg TR 42 mmHg), Cath 2005: LVEDP 18, EF 60%. pRCA mild, pLAD mild, mLAD 50-60%, pLCx mild, OM1 mild. CT head: R occipital lobe infarct, likely old Carotid sono 2018: rt common carotid with mod plaque 50-69%. moderate plaque on left with borderline stenosis. 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 - ++ JVD on exam, with increase in abdomen distension and LE edema at home of late. - large R pleural effusion on CT scan (new vs 02/14 CXR)--? HF etiology? - suspect Afib HR control may be important in optimizing HF status (though may all be secondary to high filling pressures)--as disc'd - digoxin for RV inotropy previously given, not on recent office med list (not given here) - home meds: metoprolol 100 BID, diltiazem ER 180 qd, losartan 100 qd, torsemide 10 qd - consider add spironolactone as outpt, if cannot tolerate higher doses torsemide - 07/14-: Cr stable, sob improving, still with JVD/le edema, weight down on lasix 40 mg IV BID - 07/18 Cr rising, weight 195->196, lasix held today. may be able to transition to torsemide in AM - 07/19 Cr 1.4->1.8, weight stable. would hold diuretic - 07/20 Cr improving, weight increasing. dyspnea improved. hold lasix and IVF - 07/21 Cr improved. sob stable. stable edema. weight increasing, restart home torsemide, monitor Cr - 07/22 edema worsening, sob stable. lasix 40 mg IV ordered, reevaluate in AM -07/23: start torsemide at higher dose, 40 po qd -07/24: cont torsemide - trend Cr, lytes, daily standing weight - s/p pigtail catheter for R pleural effusion 07/16, still draining Afib - rate controlled with metoprolol and diltiazem during last admit here - dig off as of 04/16 office list (also given for RV inotropy in past)--? toxic levels. defer this med at this time - diltiazem may cause further suppression of RV contractility and worsen right sided HF--pt could consider AVN ablation and PM as an alternate treatment, vs amio--will defer this discussion to outpt setting since it is an elective, long- term issue if she otherwise remains stable from chf standpoint - on increased dose of metoprolol and home diltiazem with bradycardia and pauses noted overnight - decrease metoprolol to 100 mg BID and continue diltiazem 180 mg daily - previously was off AC due to h/o GI bleed/duodenal ulcer and pt deferred f/u with GI - old infarct noted on CT head last time here--Eliquis 2.5 bid started subsequently - cont eliquis elev troponin: - intermediate range not diagnostic of myocardial injury (in absence of clinical picture suspicious), flat trend not c/w ACS. - ECG non-ischemic CKD: -baseline creat 1.0-1.5 - now with HAILEY, close to baseline cr now HTN: -cont valsartan, diltiazem, metoprolol carotid atherosclerosis, - previously declined further imaging w/u as outpt - con't asa, statin prior tx plan
--- NOTE | 2018-07-24 16:09 | PN ---
Teaching Attending Note Name of Resident: Louie Rubio ATTENDING PHYSICIAN STATEMENT I saw and evaluated the patient. I reviewed the resident's note and discussed the case with the resident. I agree with the resident's findings and plan as documented. SUBJECTIVE: OBJECTIVE: Vital Signs Period Temp Pulse Resp BP Sys/Polk Pulse Ox Last 24 Hr 97.4 F-98.0 F 66-85 20-20 111-133/42-78 93-96 Laboratory Results - last 24 hr 07/24/18 07/24/18 05:30 05:30 WBC 7.2 RBC 3.28 L Hgb 8.2 L Hct 26.0 L MCV 79.2 L MCH 25.0 L MCHC 31.6 L RDW 22.7 H Plt Count 173 MPV 8.9 Sodium 140 Potassium 4.3 Chloride 102 Carbon Dioxide 31 Anion Gap 8 BUN 51 H Creatinine 1.6 H Creat Clearance w eGFR 30.35 Random Glucose 86 Calcium 8.5 Current Medications Generic Name Dose Route Start Last Admin Trade Name Freq PRN Reason Stop Dose Admin Albuterol/Ipratropium 1 amp 07/16/18 12:00 07/24/18 15:51 Duoneb - NEB 1 amp RQID [facility] Administration Allopurinol 100 mg 07/16/18 10:00 07/24/18 09:49 Zyloprim - PO 100 mg DAILY [facility] Administration Apixaban 2.5 mg 07/16/18 22:00 07/24/18 09:49 Eliquis - PO 2.5 mg BID [facility] Administration Artificial Tears 1 drop 07/21/18 10:00 07/24/18 09:48 Artificial Tears OU 1 drop BID [facility] Administration Atorvastatin Calcium 20 mg 07/16/18 22:00 07/23/18 22:13 Lipitor - PO 20 mg HS [facility]Í Administration Cholecalciferol 400 unit 07/16/18 10:00 07/24/18 09:48 Vitamin D3 - PO 400 unit DAILY [facility] Administration Diltiazem HCl 180 mg 07/16/18 10:00 07/24/18 09:48 Cardizem Cd - PO 180 mg DAILY [facility] Administration Ferrous Gluconate 324 mg 07/16/18 10:00 07/24/18 09:49 Fergon - PO 324 mg DAILY [facility] Administration Metoprolol Succinate 100 mg 07/19/18 22:00 07/24/18 09:48 Toprol Xl - PO 100 mg BID [facility] Administration Multivitamins/Minerals/Vitamin C 1 tab 07/20/18 10:00 07/24/18 09:49 Tab-A-Vit - PO 1 tab DAILY [facility] Administration Torsemide 40 mg 07/23/18 12:00 07/24/18 09:48 Demadex - PO 40 mg DAILY [facility] Administration ASSESSMENT AND PLAN:
[2018-07-24] MEDS: ATORVASTATIN CA 20 MG TABLET (FP) PO SCH (22:39)
[2018-07-25 07:10] LABS: ANION GAP 8 MMOL/L (8-16); BLOOD UREA NITROGEN 53 mg/dL (7-18); CALCIUM 8.5 mg/dL (8.5-10.1); CHLORIDE 102 mmol/L (98-107); CO2 31 mmol/L (21-32); CREATININE 1.6 mg/dL (0.55-1.3); GLUCOSE,RANDOM 91 mg/dL (74-106); MAGNESIUM 2.2 mg/dL (1.8-2.4); PHOSPHOROUS 4.9 mg/dL (2.5-4.9); POTASSIUM 4.1 mmol/L (3.5-5.1); SODIUM 141 mmol/L (136-145)
[2018-07-25] MEDS: ALBUTEROL SO4 2.5/IPRATROPIUM 0.5 INH SOL 3 ML VIAL.NEB. NEB SCH ×4 (07:42→20:50)
[2018-07-25 07:43] LABS: HEMATOCRIT 27.1 % (32.4-45.2); HEMOGLOBIN 8.7 GM/dL (10.7-15.3); MCH 25.2 pg (25.7-33.7); MCHC 31.9 g/dl (32.0-36.0); MEAN CELL VOLUME 78.8 fl (80-96); MEAN PLT VOLUME 8.8 fl (7.5-11.1); PLATELET COUNT 191 K/MM3 (134-434); RBC 3.44 M/mm3 (3.60-5.2); WHITE BLOOD COUNT 7.2 K/mm3 (4.0-10.0)
[2018-07-25] MEDS ORDERED: PT OWN MED DRAWER 7, Y5N ONE (08:47)
[2018-07-25] MEDS: APIXABAN 2.5 MG TABLET PO SCH ×2 (09:22→22:24)
[2018-07-25] MEDS: TORSEMIDE 20 MG TABLET (FP) PO SCH (09:22)
[2018-07-25] MEDS: ALLOPURINOL 100 MG TABLET (FP) PO SCH (09:22)
[2018-07-25] MEDS: CHOLECALCIFEROL (VITAMIN D3) 400 UNIT TABLET (FP) PO SCH (09:22)
[2018-07-25] MEDS: FERROUS GLUCONATE 324 MG TAB (FP) PO SCH (09:22)
[2018-07-25] MEDS: MULTIVITAMINS (DAILY MVI) TABLET (FP) PO SCH (09:22)
[2018-07-25] MEDS: ARTIFICIAL TEARS (POLYVINYL ALCOHOL) OPTH DROPS OU SCH ×2 (09:23→22:24)
--- NOTE | 2018-07-25 09:32 | PN ---
Progress Note, Physician Chief Complaint: sob History of Present Illness: no orthopnea (lying flat all morning). still sob sometimes when she moves around. no cp, palpitations. mild leg swelling no cigs - Current Medication List Current Medications: Active Medications Albuterol/Ipratropium (Duoneb -) 1 amp NEB RQID [facility] Last Admin: 07/25/18 07:42 Dose: 1 amp Allopurinol (Zyloprim -) 100 mg PO DAILY [facility] Last Admin: 07/25/18 09:22 Dose: 100 mg Apixaban (Eliquis -) 2.5 mg PO BID [facility] Last Admin: 07/25/18 09:22 Dose: 2.5 mg Artificial Tears (Artificial Tears) 1 drop OU BID [facility] Last Admin: 07/25/18 09:23 Dose: 1 drop Atorvastatin Calcium (Lipitor -) 20 mg PO [facility] Last Admin: 07/24/18 22:39 Dose: 20 mg Cholecalciferol (Vitamin D3 -) 400 unit PO DAILY [facility] Last Admin: 07/25/18 09:22 Dose: 400 unit Diltiazem HCl (Cardizem Cd -) 180 mg PO DAILY [facility] Last Admin: 07/25/18 09:22 Dose: 180 mg Ferrous Gluconate (Fergon -) 324 mg PO DAILY [facility] Last Admin: 07/25/18 09:22 Dose: 324 mg Metoprolol Succinate (Toprol Xl -) 100 mg PO BID [facility] Last Admin: 07/25/18 09:23 Dose: 100 mg Multivitamins/Minerals/Vitamin C (Tab-A-Vit -) 1 tab PO DAILY [facility] Last Admin: 07/25/18 09:22 Dose: 1 tab Torsemide (Demadex -) 40 mg PO DAILY [facility] Last Admin: 07/25/18 09:22 Dose: 40 mg - Objective Vital Signs: Vital Signs Temperature 98.0 F 07/25/18 06:50 Pulse Rate 85 07/25/18 06:50 Respiratory Rate 18 07/25/18 06:50 Blood Pressure 123/48 L 07/25/18 06:50 O2 Sat by Pulse Oximetry (%) 100 07/24/18 21:00 Constitutional: Yes: No Distress, Calm Eyes: No: Sclera Icterus HENT: No: Nasal Congestion Cardiovascular: Yes: Regular Rate and Rhythm, JVD, Murmur (loud HSM LLSB (decr with inspiration--?)), S1, S2, Other (PMI non diplaced). No: Gallop Respiratory: Yes: CTA Bilaterally. No: Accessory Muscle Use, Rales, Wheezes Gastrointestinal: Yes: Normal Bowel Sounds, Soft. No: Tenderness Musculoskeletal: Yes: Other (No kyphosis) Extremities: No: Cold, Cyanosis Edema: Yes (1+ pretib) Integumentary: No: Jaundice Neurological: Yes: Alert, Oriented (x3) Psychiatric: No: Agitated Labs: CBC, BMP 07/25/18 05:30 07/25/18 05:30 INR, PTT INR 1.25 (0.83-1.09) H 07/16/18 16:30 Assessment/Plan ECG: afib, PVC. baseline wander artifact. NSTWAs diffusely--unchanged vs prior CT chest: large R effusion, small L. no pulm edema described Echo 02/14: ([facility]): LV not well seen. RV ??. mild (AV not well seen). mod-sev MR and TR. RVSP 40-50. Echo 06/2017: nl lv fn. mod rve. rv sys function moderately reduced. mild MR, mod TR. sev phtn. trivial pericardial effusion. Echo 2016: low-nl EF 50-55% (beat to beat variability). mod RV dilation, borderline depressed RV fxn. 1+ /MR, Mod TR, mod pHTN (avg TR 42 mmHg), Cath 2005: LVEDP 18, EF 60%. pRCA mild, pLAD mild, mLAD 50-60%, pLCx mild, OM1 mild. CT head: R occipital lobe infarct, likely old Carotid sono 2018: rt common carotid with mod plaque 50-69%. moderate plaque on left with borderline stenosis. tele: AF, good HR a/p: acute on chronic diastolic CHF with pHTN/RV failure, large R pleural effusion: - home torsemide dose 10 qd as of 04/16 visit (up to 20-40 qd in past), sees dr hargrove in office - BNP 2400, stable (ranges [id number]) - office wt 190 in 04/16, currently 203 lbs. - ++ JVD on exam, with increase in abdomen distension and LE edema at home of late. - large R pleural effusion on CT scan (new vs 02/14 CXR)--? HF etiology? - suspect Afib HR control may be important in optimizing HF status (though may all be secondary to high filling pressures)--as disc'd - digoxin for RV inotropy previously given, not on recent office med list (not given here) - consider add spironolactone as outpt, if cannot tolerate higher doses torsemide - 07/14-: Cr stable, sob improving, still with JVD/le edema, weight down on lasix 40 mg IV BID - 07/18 Cr rising, weight 195->196, lasix held today. may be able to transition to torsemide in AM - 07/19 Cr 1.4->1.8, weight stable. would hold diuretic - 07/20 Cr improving, weight increasing. dyspnea improved. hold lasix and IVF - 07/21 Cr improved. sob stable. stable edema. weight increasing, restart home torsemide, monitor Cr - 07/22 edema worsening, sob stable. lasix 40 mg IV ordered, reevaluate in AM -07/23: start torsemide at higher dose, 40 po qd -07/24: cont torsemide -07/25: wt progressively trended up from 195 to 203 since lasix briefly held then changed to po torsemide due to uptrend in bun/creat. JVD documented in notes. pigtail catheter in pleural space continuously draining which suggests ongoing volume overload/high pulm capillary pressures/chf. wt down 203 to 200 today, on torsemide 40 qd. rec re-trial IV lasix 40 x 2 doses today (may need 80 ) -may need inotropes (milrinone) assisted diuresis if renal fxn worsens despite evidence of ongoing volume overload (? RV failure causing low cardiac output state) - trend Cr, lytes, daily standing weight - s/p pigtail catheter for R pleural effusion 07/16, still draining Afib - rate controlled with metoprolol and diltiazem during last admit here - dig off as of 04/16 office list (also given for RV inotropy in past)--? toxic levels. defer this med at this time - diltiazem may cause further suppression of RV contractility and worsen right sided HF--pt could consider AVN ablation and PM as an alternate treatment, vs amio--will defer this discussion to outpt setting since it is an elective, long- term issue if she otherwise remains stable from chf standpoint - decreased metoprolol to 100 mg BID due to pauses on tele overnight. continued diltiazem 180 mg daily - previously was off AC due to h/o GI bleed/duodenal ulcer and pt deferred f/u with GI - old infarct noted on CT head last time here--Eliquis 2.5 bid started subsequently--continue same. elev troponin: - intermediate range not diagnostic of myocardial injury (in absence of clinical picture suspicious), flat trend not c/w ACS. - ECG non-ischemic - no suspected anginal sx's CKD: -baseline creat 1.0-1.5 -HAILEY here sec to cardiorenal syndrome, then bumped transiently with diuresis -continue to monitor trend HTN: -bp controlled -cont valsartan, diltiazem, metoprolol carotid atherosclerosis, - previously declined further imaging w/u as outpt - con't asa, statin prior tx plan
--- NOTE | 2018-07-25 11:00 | PN ---
Progress Note (short form) - Note Progress Note: PULMONARY Resting in NAD. Pig tail in right pleural space with 120 cc drainage in 12 hours vss Constitutional: Yes: NAD Eyes: Yes: WNL HENT: Yes: WNL Neck: Yes: WNL Cardiovascular: Yes: Pulse Irregular, S1, S2 Respiratory: Yes: Diminished, PleureX intact Gastrointestinal: Yes: Normal Bowel Sounds, Soft Extremities: Yes: WNL Edema: Yes CXR REVIEWED Problem List - Problems (1) Pulmonary HTN Code(s): I27.20 - PULMONARY HYPERTENSION, UNSPECIFIED (2) Diastolic CHF, acute on chronic Code(s): I50.33 - ACUTE ON CHRONIC DIASTOLIC (CONGESTIVE) HEART FAILURE (3) Acquired lymphedema of leg Code(s): I89.0 - LYMPHEDEMA, NOT ELSEWHERE CLASSIFIED (4) Atrial fibrillation Code(s): I48.91 - UNSPECIFIED ATRIAL FIBRILLATION Qualifiers: Atrial fibrillation type: paroxysmal Qualified Code(s): I48.0 - Paroxysmal atrial fibrillation (5) HTN (hypertension) Code(s): I10 - ESSENTIAL (PRIMARY) HYPERTENSION (6) Hyperlipidemia Code(s): E78.5 - HYPERLIPIDEMIA, UNSPECIFIED (7) Pleural effusion Code(s): J90 - PLEURAL EFFUSION, NOT ELSEWHERE CLASSIFIED (8) Shortness of breath Code(s): R06.02 - SHORTNESS OF BREATH Assessment/Plan IMP ACUTE ON CHRONIC CHF IMPROVING DYSPNEA IMPROVING S/P FALL BILATERAL PLEURAL EFFUSIONS R>L TRANSUDATE AFIB PULMONARY HTN HTN ANEMIA PLAN DIURETICS/CONTINUE DRAINAGE FOR NOW O2 DAILY WTS INHALED BRONCHODILATORS MONITOR CHEST TUBE DRAINAGE: WILL NEED TO ARRANGE FOR HOME SERVICES ZAHIRA GUTIERREZ MD
[2018-07-25] MEDS ORDERED: FUROSEMIDE 40 MG/4 ML INJECTABLE VIAL IVPUSH ONE ×2 (12:06→17:00)
--- NOTE | 2018-07-25 15:31 | PN ---
Physical Exam: SUBJECTIVE: Patient seen and examined OBJECTIVE: Vital Signs Period Temp Pulse Resp BP Sys/Polk Pulse Ox Last 24 Hr 97.9 F-98.1 F 77-85 18-18 113-123/46-58 98-100 GENERAL: The patient is awake, alert, and fully oriented, in no acute distress. HEAD: Normal with no signs of trauma. EYES: PERRL, extraocular movements intact, sclera anicteric, conjunctiva clear. No ptosis. ENT: Ears normal, nares patent, oropharynx clear without exudates, moist mucous membranes. NECK: Trachea midline, full range of motion, supple. LUNGS: Breath sounds equal, clear to auscultation bilaterally, no wheezes, no crackles, no accessory muscle use. HEART: Regular rate and rhythm, S1, S2 without murmur, rub or gallop. ABDOMEN: Soft, nontender, nondistended, normoactive bowel sounds, no guarding, no rebound, no hepatosplenomegaly, no masses. EXTREMITIES: 2+ pulses, warm, well-perfused, no edema. NEUROLOGICAL: Cranial nerves II through XII grossly intact. Normal speech, gait not observed. PSYCH: Normal mood, normal affect. SKIN: Warm, dry, normal turgor, no rashes or lesions noted Laboratory Results - last 24 hr 07/25/18 07/25/18 05:30 05:30 WBC 7.2 RBC 3.44 L Hgb 8.7 L Hct 27.1 L MCV 78.8 L MCH 25.2 L MCHC 31.9 L RDW 23.0 H Plt Count 191 MPV 8.8 Sodium 141 Potassium 4.1 Chloride 102 Carbon Dioxide 31 Anion Gap 8 BUN 53 H Creatinine 1.6 H Creat Clearance w eGFR 30.35 Random Glucose 91 Calcium 8.5 Phosphorus 4.9 Magnesium 2.2 Active Medications Generic Name Dose Route Start Last Admin Trade Name Freq PRN Reason Stop Dose Admin Albuterol/Ipratropium 1 amp 07/16/18 12:00 07/25/18 11:33 Duoneb - NEB 1 amp RQID NOEMÍ Administration Allopurinol 100 mg 07/16/18 10:00 07/25/18 09:22 Zyloprim - PO 100 mg DAILY NOEMÍ Administration Apixaban 2.5 mg 07/16/18 22:00 07/25/18 09:22 Eliquis - PO 2.5 mg BID NOEMÍ Administration Artificial Tears 1 drop 07/21/18 10:00 07/25/18 09:23 Artificial Tears OU 1 drop BID NOEMÍ Administration Atorvastatin Calcium 20 mg 07/16/18 22:00 07/24/18 22:39 Lipitor - PO 20 mg HS NOEMÍ Administration Cholecalciferol 400 unit 07/16/18 10:00 07/25/18 09:22 Vitamin D3 - PO 400 unit DAILY NO[facility]Í Administration Diltiazem HCl 180 mg 07/16/18 10:00 07/25/18 09:22 Cardizem Cd - PO 180 mg DAILY NOEMÍ Administration Ferrous Gluconate 324 mg 07/16/18 10:00 07/25/18 09:22 Fergon - PO 324 mg DAILY NOEMÍ Administration Furosemide 40 mg 07/25/18 17:00 Lasix Injection - IVPUSH 07/25/18 17:01 ONCE ONE Metoprolol Succinate 100 mg 07/19/18 22:00 07/25/18 09:23 Toprol Xl - PO 100 mg BID NOEMÍ Administration Multivitamins/Minerals/Vitamin C 1 tab 07/20/18 10:00 07/25/18 09:22 Tab-A-Vit - PO 1 tab DAILY NOEMÍ Administration ASSESSMENT/PLAN:
--- NOTE | 2018-07-25 16:38 | PN ---
Progress Note (short form) - Note Progress Note: RENAL pt is awake and alert sitting by bedside says she is breathing better says she was upset earlier Last Vital Signs Temp Pulse Resp BP Pulse Ox 97.9 F 77 18 113/58 L 98 07/25/18 14:43 07/25/18 10:00 07/25/18 14:43 07/25/18 14:43 07/25/18 09:00 lungs decreased breath sounds chest has a tube on right side of chest cvs s1s2 rr +FINESSE abd soft ext +edema neuro a+ox3 CBC, BMP 07/25/18 05:30 07/25/18 05:30 Current Medications Generic Name Dose Route Start Last Admin Trade Name Freq PRN Reason Stop Dose Admin Albuterol/Ipratropium 1 amp 07/16/18 12:00 07/25/18 15:40 Duoneb - NEB 1 amp RQID NOEMÍ Administration Allopurinol 100 mg 07/16/18 10:00 07/25/18 09:22 Zyloprim - PO 100 mg DAILY NOEMÍ Administration Apixaban 2.5 mg 07/16/18 22:00 07/25/18 09:22 Eliquis - PO 2.5 mg BID NOEMÍ Administration Artificial Tears 1 drop 07/21/18 10:00 07/25/18 09:23 Artificial Tears OU 1 drop BID NOEMÍ Administration Atorvastatin Calcium 20 mg 07/16/18 22:00 07/24/18 22:39 Lipitor - PO 20 mg HS NOEMÍ Administration Cholecalciferol 400 unit 07/16/18 10:00 07/25/18 09:22 Vitamin D3 - PO 400 unit DAILY NOEMÍ Administration Diltiazem HCl 180 mg 07/16/18 10:00 07/25/18 09:22 Cardizem Cd - PO 180 mg DAILY NOEMÍ Administration Ferrous Gluconate 324 mg 07/16/18 10:00 07/25/18 09:22 Fergon - PO 324 mg DAILY NOEMÍ Administration Furosemide 40 mg 07/25/18 17:00 Lasix Injection - IVPUSH 07/25/18 17:01 ONCE ONE Metoprolol Succinate 100 mg 07/19/18 22:00 07/25/18 09:23 Toprol Xl - PO 100 mg BID NOEMÍ Administration Multivitamins/Minerals/Vitamin C 1 tab 07/20/18 10:00 07/25/18 09:22 Tab-A-Vit - PO 1 tab DAILY NOEMÍ Administration Impression 1. HAILEY 2. hyperkalemia 3. CHF 4. pleural effusion- transudative 5. HTN 6. pulm htn 7. a-fib 8. anemia 9. proteinuria intermittent Plan - cont with torsemide - monitor renal function - obtain urine protein and creatinine - chest tube care MV
[2018-07-25] MEDS: ATORVASTATIN CA 20 MG TABLET (FP) PO SCH (22:24)
[2018-07-26 07:06] LABS: ANION GAP 8 MMOL/L (8-16); BLOOD UREA NITROGEN 49 mg/dL (7-18); CALCIUM 8.6 mg/dL (8.5-10.1); CHLORIDE 100 mmol/L (98-107); CO2 33 mmol/L (21-32); CREATININE 1.5 mg/dL (0.55-1.3); GLUCOSE,RANDOM 96 mg/dL (74-106); MAGNESIUM 1.9 mg/dL (1.8-2.4); POTASSIUM 3.6 mmol/L (3.5-5.1); SODIUM 141 mmol/L (136-145)
[2018-07-26 07:13] LABS: BASO % 0.7 % (0-2.0); EOS % 2.3 % (0-4.5); HEMATOCRIT 27.6 % (32.4-45.2); HEMOGLOBIN 8.8 GM/dL (10.7-15.3); MCH 25.3 pg (25.7-33.7); MCHC 32.1 g/dl (32.0-36.0); MEAN CELL VOLUME 79.1 fl (80-96); MEAN PLT VOLUME 8.7 fl (7.5-11.1); MONO % 10.8 % (3.8-10.2); NEUT % 73.2 % (42.8-82.8); PLATELET COUNT 175 K/MM3 (134-434); RBC 3.49 M/mm3 (3.60-5.2); RDW 23.8 % (11.6-15.6); WHITE BLOOD COUNT 6.9 K/mm3 (4.0-10.0)
[2018-07-26] MEDS ORDERED: POTASSIUM CHLORIDE TABS 20 MEQ TABLET.ER (FP) PO ONE (07:43)
[2018-07-26] MEDS ORDERED: MAGNESIUM OXIDE 400 MG TABLET (FP) PO ONE (07:43)
[2018-07-26] MEDS: MULTIVITAMINS (DAILY MVI) TABLET (FP) PO SCH (09:20)
[2018-07-26] MEDS: APIXABAN 2.5 MG TABLET PO SCH ×2 (09:20→21:57)
[2018-07-26] MEDS: FERROUS GLUCONATE 324 MG TAB (FP) PO SCH (09:20)
[2018-07-26] MEDS: ALLOPURINOL 100 MG TABLET (FP) PO SCH (09:20)
[2018-07-26] MEDS: ARTIFICIAL TEARS (POLYVINYL ALCOHOL) OPTH DROPS OU SCH ×2 (09:21→21:58)
--- NOTE | 2018-07-26 09:24 | PN ---
Progress Note, Physician Chief Complaint: sob History of Present Illness: still sob but remains much improved vs prior. legs swollen no cp, palpit no cigs - Current Medication List Current Medications: Active Medications Allopurinol (Zyloprim -) 100 mg PO DAILY [facility] Last Admin: 07/25/18 09:22 Dose: 100 mg Apixaban (Eliquis -) 2.5 mg PO BID [facility] Last Admin: 07/25/18 22:24 Dose: 2.5 mg Artificial Tears (Artificial Tears) 1 drop OU BID [facility] Last Admin: 07/25/18 22:24 Dose: 1 drop Atorvastatin Calcium (Lipitor -) 20 mg PO HS [facility] Last Admin: 07/25/18 22:24 Dose: 20 mg Cholecalciferol (Vitamin D3 -) 400 unit PO DAILY [facility] Last Admin: 07/25/18 09:22 Dose: 400 unit Diltiazem HCl (Cardizem Cd -) 180 mg PO DAILY [facility] Last Admin: 07/25/18 09:22 Dose: 180 mg Ferrous Gluconate (Fergon -) 324 mg PO DAILY [facility] Last Admin: 07/25/18 09:22 Dose: 324 mg Metoprolol Succinate (Toprol Xl -) 100 mg PO BID [facility] Last Admin: 07/25/18 22:24 Dose: 100 mg Multivitamins/Minerals/Vitamin C (Tab-A-Vit -) 1 tab PO DAILY [facility] Last Admin: 07/25/18 09:22 Dose: 1 tab - Objective Vital Signs: Vital Signs Temperature 98.1 F 07/26/18 06:40 Pulse Rate 84 07/26/18 06:40 Respiratory Rate 18 07/26/18 06:40 Blood Pressure 132/74 07/26/18 06:40 O2 Sat by Pulse Oximetry (%) 99 07/25/18 21:00 Constitutional: Yes: No Distress, Calm Eyes: No: Sclera Icterus HENT: No: Nasal Congestion Cardiovascular: Yes: Regular Rate and Rhythm, JVD (almost to jaw), Murmur (loud HSM LLSB), S1, S2, Other (PMI non diplaced). No: Gallop Respiratory: Yes: CTA Bilaterally, Diminished (bases). No: Accessory Muscle Use , Rales, Wheezes Gastrointestinal: Yes: Normal Bowel Sounds, Soft. No: Tenderness Musculoskeletal: Yes: Other (No kyphosis) Extremities: No: Cold Edema: Yes (2+ pretib) Integumentary: No: Jaundice Neurological: Yes: Alert, Oriented (x3) Psychiatric: No: Agitated Labs: CBC, BMP 07/26/18 05:30 07/26/18 05:30 INR, PTT INR 1.25 (0.83-1.09) H 07/16/18 16:30 Assessment/Plan ECG: afib, PVC. baseline wander artifact. NSTWAs diffusely--unchanged vs prior CT chest: large R effusion, small L. no pulm edema described Echo 02/14: ([facility]): LV not well seen. RV ??. mild (AV not well seen). mod-sev MR and TR. RVSP 40-50. Echo 06/2017: nl lv fn. mod rve. rv sys function moderately reduced. mild MR, mod TR. sev phtn. trivial pericardial effusion. Echo 2016: low-nl EF 50-55% (beat to beat variability). mod RV dilation, borderline depressed RV fxn. 1+ /MR, Mod TR, mod pHTN (avg TR 42 mmHg), Cath 2005: LVEDP 18, EF 60%. pRCA mild, pLAD mild, mLAD 50-60%, pLCx mild, OM1 mild. CT head: R occipital lobe infarct, likely old Carotid sono 2018: rt common carotid with mod plaque 50-69%. moderate plaque on left with borderline stenosis. tele: AF, good HR a/p: acute on chronic diastolic CHF with pHTN/RV failure, large R pleural effusion: - home torsemide dose 10 qd as of 04/16 visit (up to 20-40 qd in past), sees dr hargrove in office - BNP 2400, stable (ranges 3054-3432) - office wt 190 in 04/16, currently 203 lbs. - ++ JVD on exam, with increase in abdomen distension and LE edema at home of late. - large R pleural effusion on CT scan (new vs 02/14 CXR)--? HF etiology? - suspect Afib HR control may be important in optimizing HF status (though may all be secondary to high filling pressures)--as disc'd - digoxin for RV inotropy previously given, not on recent office med list (not given here) - consider add spironolactone as outpt, if cannot tolerate higher doses torsemide - 07/14-: Cr stable, sob improving, still with JVD/le edema, weight down on lasix 40 mg IV BID - 07/18 Cr rising, weight 195->196, lasix held today. may be able to transition to torsemide in AM - 07/19 Cr 1.4->1.8, weight stable. would hold diuretic - 07/20 Cr improving, weight increasing. dyspnea improved. hold lasix and IVF - 07/21 Cr improved. sob stable. stable edema. weight increasing, restart home torsemide, monitor Cr - 07/22 edema worsening, sob stable. lasix 40 mg IV ordered, reevaluate in AM -07/23: start torsemide at higher dose, 40 po qd -07/24: cont torsemide -07/25: wt progressively trended up from 195 to 203 since lasix briefly held then changed to po torsemide due to uptrend in bun/creat. JVD documented in notes. pigtail catheter in pleural space continuously draining which suggests ongoing volume overload/high pulm capillary pressures/chf. wt down 203 to 200 today, on torsemide 40 qd. rec re-trial IV lasix 40 x 2 doses today (may need 80 ) -07/26: signif incr UOP yest per pt/RN (incontinent). wt inaccurate (10 lb down vs yesterday). pigtail drainage nearly stopped per pulm. renal fxn improving. remains edematous with high JVD and sob sx's. continue lasix 40 IV bid. will try decrease CCB dose to minimize RV neg inotropic effect, as below. -may need inotropes (milrinone) assisted diuresis if renal fxn worsens despite evidence of ongoing volume overload (? RV failure causing low cardiac output state) - trend Cr, lytes, daily standing weight - s/p pigtail catheter for R pleural effusion 07/16, still draining Afib - rate controlled with metoprolol and diltiazem during last admit here - dig off as of 04/16 office list (also given for RV inotropy in past)--? toxic levels. defer this med at this time - diltiazem may cause further suppression of RV contractility and worsen right sided HF - given ongoing HF picture, will try decr diltiazem dose to 120 and titrate up metoprolol (150 bid)--aim to get off CCB if can control rate with BB alone. - could consider amio for rate control, vs AVN ablation and PM if pt willing ( she has a history of declining invasive procedures), if cannot control well without CCB on board and if she has recurrent HF episodes - previously was off AC due to h/o GI bleed/duodenal ulcer and pt deferred f/u with GI - old infarct noted on CT head last time here--Eliquis 2.5 bid started subsequently--continue same. elev troponin: - intermediate range not diagnostic of myocardial injury (in absence of clinical picture suspicious), flat trend not c/w ACS. - ECG non-ischemic - no suspected anginal sx's CKD: -baseline creat 1.0-1.5 -HAILEY here sec to cardiorenal syndrome, then bumped transiently with diuresis -continue to monitor trend HTN: -bp controlled -cont valsartan, diltiazem, metoprolol carotid atherosclerosis, - previously declined further imaging w/u as outpt - con't asa, statin prior tx plan
[2018-07-26] MEDS: CHOLECALCIFEROL (VITAMIN D3) 400 UNIT TABLET (FP) PO SCH (09:27)
[2018-07-26] MEDS: FUROSEMIDE 40 MG/4 ML INJECTABLE VIAL IVPUSH SCH ×2 (09:33→13:33)
--- NOTE | 2018-07-26 09:36 | PN ---
Physical Exam: SUBJECTIVE: Patient seen and examined this AM. She states she is feeling a little better and that the edema in her legs is improving. OBJECTIVE: Vital Signs Period Temp Pulse Resp BP Sys/Polk Pulse Ox Last 24 Hr 97.5 F-98.1 F 71-84 18-18 113-132/46-74 99 GENERAL: A&O, no acute distress HEAD: Normocephalic, atraumatic. EYES: PERRL, no scleral icterus EARS, NOSE, THROAT: oropharynx clear without exudates. Moist mucous membranes. NECK: supple without lymphadenopathy LUNGS: decreased breath sounds b/l bases, right chest tube in place. HEART: Irregularly irregular, systolic murmur ABDOMEN: Soft, nontender to palpation, normoactive bowel sounds MUSCULOSKELETAL: No bony deformities or tenderness. EXTREMITIES: warm, well-perfused. edema similar to yesterday SKIN: Warm, dry, no rashes or lesions noted Laboratory Results - last 24 hr 07/26/18 07/26/18 05:30 05:30 WBC 6.9 RBC 3.49 L Hgb 8.8 L Hct 27.6 L MCV 79.1 L MCH 25.3 L MCHC 32.1 RDW 23.8 H Plt Count 175 MPV 8.7 Absolute Neuts (auto) 5.1 Neutrophils % 73.2 Lymphocytes % 13.0 Monocytes % 10.8 H Eosinophils % 2.3 D Basophils % 0.7 Nucleated RBC % 0 Sodium 141 Potassium 3.6 Chloride 100 Carbon Dioxide 33 H Anion Gap 8 BUN 49 H Creatinine 1.5 H Creat Clearance w eGFR 32.70 Random Glucose 96 Calcium 8.6 Magnesium 1.9 Active Medications Generic Name Dose Route Start Last Admin Trade Name Freq PRN Reason Stop Dose Admin Allopurinol 100 mg 07/16/18 10:00 07/26/18 09:20 Zyloprim - PO 100 mg DAILY NOEMÍ Administration Apixaban 2.5 mg 07/16/18 22:00 07/26/18 09:20 Eliquis - PO 2.5 mg BID NOEMÍ Administration Artificial Tears 1 drop 07/21/18 10:00 07/26/18 09:21 Artificial Tears OU 1 drop BID NOEMÍ Administration Atorvastatin Calcium 20 mg 07/16/18 22:00 07/25/18 22:24 Lipitor - PO 20 mg HS NOEMÍ Administration Cholecalciferol 400 unit 07/16/18 10:00 07/26/18 09:27 Vitamin D3 - PO 400 unit DAILY NOEMÍ Administration Diltiazem HCl 120 mg 07/26/18 09:21 Cardizem Cd - PO DAILY NOEMÍ Ferrous Gluconate 324 mg 07/16/18 10:00 07/26/18 09:20 Fergon - PO 324 mg DAILY NOEMÍ Administration Furosemide 40 mg 07/26/18 09:20 Lasix Injection - IVPUSH BID@0600,1400 [facility] Metoprolol Succinate 150 mg 07/26/18 09:21 Toprol Xl - PO BID NOEMÍ Multivitamins/Minerals/Vitamin C 1 tab 07/20/18 10:00 07/26/18 09:20 Tab-A-Vit - PO 1 tab DAILY NOEMÍ Administration ASSESSMENT/PLAN: Pt is an 88 yo F with PMHx of GI bleed, afib (on eliquis), HTN, HLD, venous insuff with chronic lymphedema, OA, CHF (diastolic), back pain presenting from home after a fall but found to be SOB. Acute on Chronic Diastolic CHF -b/l effusions noted, initially Large on right, improving -Pulm consult appreciated -Cardiology consult appreciated -Thoracentesis fluid consistent with Transudate -Chest tube still with some drainage, further management as per pulm/cardiology -Respiratory status improving -Lasix 40 mg IV BID as per cardiology HAILEY -Trend BMP -continue diuretics but monitor BUN/Cr -Renal consult appreciated UTI -Urine culture positive ESBL -ID consulted -watch off Abx for now Transaminitis -Resolved -RUQ US with heterogeneous liver -GI consult appreciated Fall -Denies LOC -CT noted without acute fracture or bleed -PT eval A-fib -Cardiology consult appreciated -Toprol XL 150 mg PO Daily -Decrease Cardizem 180 mg PO daily to 120 mg PO daily as per cardiology -Pt could require Amio for rate control vs ablation if unable to control on rate on lower CCB dosing HTN -Cardizem 180 mg PO Daily -Toprol as above HLD -Lipitor 20 mg PO HS DVT Prophylaxis -Eliquis 2.5 mg PO BID FEN -Fluids: none -Electrolytes: No electrolyte abnormalities, BMP in AM -Nutrition: Na controlled diet Disposition Stable for transfer off telemetry Visit type - Emergency Visit Emergency Visit: Yes ED Registration Date: 07/12/18 Care time: The patient presented to the Emergency Department on the above date and was hospitalized for further evaluation of their emergent condition. - New Patient This patient is new to me today: No - Critical Care Critical Care patient: No
[2018-07-26 11:12] LABS: ANISOCYTOSIS 1+; MACROCYTOSIS 0; PLATELET ESTIMATE NORMAL
--- NOTE | 2018-07-26 12:24 | PN ---
Progress Note (short form) - Note Progress Note: RENAL pt is awake and alert lying down comfortable says she is breathing better Last Vital Signs Temp Pulse Resp BP Pulse Ox 98 F 83 18 140/68 97 07/26/18 10:00 07/26/18 10:00 07/26/18 10:00 07/26/18 10:00 07/26/18 09:00 lungs decreased breath sounds chest has a tube on right side of chest cvs s1s2 rr +FINESSE abd soft ext +edema neuro a+ox3 CBC, BMP 07/26/18 05:30 07/26/18 05:30 Current Medications Generic Name Dose Route Start Last Admin Trade Name Freq PRN Reason Stop Dose Admin Allopurinol 100 mg 07/16/18 10:00 07/26/18 09:20 Zyloprim - PO 100 mg DAILY NOEMÍ Administration Apixaban 2.5 mg 07/16/18 22:00 07/26/18 09:20 Eliquis - PO 2.5 mg BID NOEMÍ Administration Artificial Tears 1 drop 07/21/18 10:00 07/26/18 09:21 Artificial Tears OU 1 drop BID NOEMÍ Administration Atorvastatin Calcium 20 mg 07/16/18 22:00 07/25/18 22:24 Lipitor - PO 20 mg HS NOEMÍ Administration Cholecalciferol 400 unit 07/16/18 10:00 07/26/18 09:27 Vitamin D3 - PO 400 unit DAILY NOEMÍ Administration Diltiazem HCl 120 mg 07/26/18 09:21 07/26/18 09:34 Cardizem Cd - PO Not Given DAILY [facility] Ferrous Gluconate 324 mg 07/16/18 10:00 07/26/18 09:20 Fergon - PO 324 mg DAILY NOEMÍ Administration Furosemide 40 mg 07/26/18 09:20 07/26/18 09:33 Lasix Injection - IVPUSH 40 mg BID@0600,1400 NOEMÍ Administration Metoprolol Succinate 150 mg 07/26/18 09:21 07/26/18 10:35 Toprol Xl - PO Not Given BID [facility] Multivitamins/Minerals/Vitamin C 1 tab 07/20/18 10:00 07/26/18 09:20 Tab-A-Vit - PO 1 tab DAILY NOEMÍ Administration Impression 1. HAILEY 2. hyperkalemia 3. CHF 4. pleural effusion- transudative 5. HTN 6. pulm htn 7. a-fib 8. anemia 9. proteinuria intermittent Plan - cont with furosemide - monitor renal function - obtain urine protein and creatinine - chest tube care -fluid restrict MV
--- NOTE | 2018-07-26 17:38 | PN ---
Teaching Attending Note Name of Resident: Louie Rubio ATTENDING PHYSICIAN STATEMENT I saw and evaluated the patient. I reviewed the resident's note and discussed the case with the resident. I agree with the resident's findings and plan as documented. SUBJECTIVE: OBJECTIVE: Vital Signs Period Temp Pulse Resp BP Sys/Polk Pulse Ox Last 24 Hr 97.5 F-98.2 F 67-84 18-18 119-140/59-74 97-99 Laboratory Results - last 24 hr 07/26/18 07/26/18 05:30 05:30 WBC 6.9 RBC 3.49 L Hgb 8.8 L Hct 27.6 L MCV 79.1 L MCH 25.3 L MCHC 32.1 RDW 23.8 H Plt Count 175 MPV 8.7 Absolute Neuts (auto) 5.1 Neutrophils % 73.2 Lymphocytes % 13.0 Monocytes % 10.8 H Eosinophils % 2.3 D Basophils % 0.7 Nucleated RBC % 0 Hypochromia 0 Platelet Estimate Normal Platelet Comment Present Polychromasia 1+ Poikilocytosis 1+ Anisocytosis 1+ Microcytosis 1+ Macrocytosis 0 Sodium 141 Potassium 3.6 Chloride 100 Carbon Dioxide 33 H Anion Gap 8 BUN 49 H Creatinine 1.5 H Creat Clearance w eGFR 32.70 Random Glucose 96 Calcium 8.6 Magnesium 1.9 Current Medications Generic Name Dose Route Start Last Admin Trade Name Selena PRN Reason Stop Dose Admin Allopurinol 100 mg 07/16/18 10:00 07/26/18 09:20 Zyloprim - PO 100 mg DAILY NOEMÍ Administration Apixaban 2.5 mg 07/16/18 22:00 07/26/18 09:20 Eliquis - PO 2.5 mg BID NOEMÍ Administration Artificial Tears 1 drop 07/21/18 10:00 07/26/18 09:21 Artificial Tears OU 1 drop BID NOEMÍ Administration Atorvastatin Calcium 20 mg 07/16/18 22:00 07/25/18 22:24 Lipitor - PO 20 mg HS NOEMÍ Administration Cholecalciferol 400 unit 07/16/18 10:00 07/26/18 09:27 Vitamin D3 - PO 400 unit DAILY NOEMÍ Administration Diltiazem HCl 120 mg 07/26/18 09:21 07/26/18 09:34 Cardizem Cd - PO Not Given DAILY NOEMÍ Ferrous Gluconate 324 mg 07/16/18 10:00 07/26/18 09:20 Fergon - PO 324 mg DAILY NOEMÍ Administration Furosemide 40 mg 07/26/18 09:20 07/26/18 13:33 Lasix Injection - IVPUSH 40 mg BID@0600,1400 NOEMÍ Administration Metoprolol Succinate 150 mg 07/26/18 09:21 07/26/18 10:35 Toprol Xl - PO Not Given BID NOEMÍ Multivitamins/Minerals/Vitamin C 1 tab 07/20/18 10:00 07/26/18 09:20 Tab-A-Vit - PO 1 tab DAILY NOEMÍ Administration ASSESSMENT AND PLAN:
[2018-07-26] MEDS: ATORVASTATIN CA 20 MG TABLET (FP) PO SCH (21:57)
[2018-07-27] MEDS: FUROSEMIDE 40 MG/4 ML INJECTABLE VIAL IVPUSH SCH (05:25)
[2018-07-27 06:34] LABS: HEMOGLOBIN 9.1 GM/dL (10.7-15.3); MCH 25.9 pg (25.7-33.7); MCHC 32.4 g/dl (32.0-36.0); MEAN PLT VOLUME 8.7 fl (7.5-11.1); PLATELET COUNT 198 K/MM3 (134-434); RDW 23.9 % (11.6-15.6); WHITE BLOOD COUNT 7.7 K/mm3 (4.0-10.0)
[2018-07-27 07:39] LABS: ANION GAP 7 MMOL/L (8-16); BLOOD UREA NITROGEN 51 mg/dL (7-18); CALCIUM 8.5 mg/dL (8.5-10.1); CHLORIDE 100 mmol/L (98-107); CO2 36 mmol/L (21-32); CREATININE 1.6 mg/dL (0.55-1.3); GLUCOSE,RANDOM 92 mg/dL (74-106); MAGNESIUM 2.1 mg/dL (1.8-2.4); PHOSPHOROUS 3.8 mg/dL (2.5-4.9); POTASSIUM 4.1 mmol/L (3.5-5.1); SODIUM 142 mmol/L (136-145)
[2018-07-27] MEDS ORDERED: PT OWN MED DRAWER 7, Y5N ONE (07:48)
--- NOTE | 2018-07-27 08:31 | PN ---
Teaching Attending Note Name of Resident: Louie Rubio ATTENDING PHYSICIAN STATEMENT I saw and evaluated the patient. I reviewed the resident's note and discussed the case with the resident. I agree with the resident's findings and plan as documented. SUBJECTIVE: Less SOB OBJECTIVE: Vital Signs Temperature 97.4 F L 07/27/18 06:00 Pulse Rate 77 07/27/18 06:00 Respiratory Rate 18 07/27/18 06:00 Blood Pressure 122/57 L 07/27/18 06:00 O2 Sat by Pulse Oximetry (%) 97 07/26/18 21:00 Elderly F not in distress HEENT: Mm moist, no anemia, PERRLA EOMI NECK: No JVD No Bruit CHEST; Basal crepts s/p Rt Pigtial catheter CVS:S1S2 R no m/g/r ABD: Obese, non tender Bs + EXT: Edema feet +, pulses + [employer]: AOX3 non focal LABS: CBC, BMP 07/27/18 05:30 07/27/18 05:30 ASSESSMENT AND PLAN: 88 yrs old F with multiple co-morbidities H/O hTN, DHF, Afib not on AC , chronic anemia, decompensation CHF with Pleural effusion s/p Chest tube improving on IV Diuretics MEDS: Active Medications Allopurinol (Zyloprim -) 100 mg PO DAILY [facility] Last Admin: 07/27/18 09:54 Dose: 100 mg Apixaban (Eliquis -) 2.5 mg PO BID [facility] Last Admin: 07/27/18 09:53 Dose: 2.5 mg Artificial Tears (Artificial Tears) 1 drop OU BID [facility] Last Admin: 07/27/18 09:54 Dose: 1 drop Atorvastatin Calcium (Lipitor -) 20 mg PO HS [facility] Last Admin: 07/26/18 21:57 Dose: 20 mg Cholecalciferol (Vitamin D3 -) 400 unit PO DAILY [facility] Last Admin: 07/27/18 09:53 Dose: 400 unit Ferrous Gluconate (Fergon -) 324 mg PO DAILY [facility] Last Admin: 07/27/18 09:54 Dose: 324 mg Furosemide (Lasix Injection -) 80 mg IVPUSH ONCE ONE Stop: 07/27/18 14:01 Metoprolol Succinate (Toprol Xl -) 150 mg PO BID [facility] Last Admin: 07/27/18 09:53 Dose: 150 mg Multivitamins/Minerals/Vitamin C (Tab-A-Vit -) 1 tab PO DAILY NOEMÍ Last Admin: 07/27/18 09:54 Dose: 1 tab Plan; F/u Pulmonary and Cardiology recommendation, Rpt CXR if Pulm agrees DC Pigtail catheter F/U CBC, CMP in am. Problem List - Problems (1) Diastolic CHF, acute on chronic Code(s): I50.33 - ACUTE ON CHRONIC DIASTOLIC (CONGESTIVE) HEART FAILURE (2) Pleural effusion Code(s): J90 - PLEURAL EFFUSION, NOT ELSEWHERE CLASSIFIED (3) Pulmonary HTN Code(s): I27.20 - PULMONARY HYPERTENSION, UNSPECIFIED (4) Acute metabolic encephalopathy Code(s): G93.41 - METABOLIC ENCEPHALOPATHY (5) HTN (hypertension) Code(s): I10 - ESSENTIAL (PRIMARY) HYPERTENSION (6) Atrial fibrillation Code(s): I48.91 - UNSPECIFIED ATRIAL FIBRILLATION Qualifiers: Atrial fibrillation type: paroxysmal Qualified Code(s): I48.0 - Paroxysmal atrial fibrillation
[2018-07-27] MEDS: CHOLECALCIFEROL (VITAMIN D3) 400 UNIT TABLET (FP) PO SCH (09:53)
[2018-07-27] MEDS: APIXABAN 2.5 MG TABLET PO SCH ×2 (09:53→21:07)
[2018-07-27] MEDS: MULTIVITAMINS (DAILY MVI) TABLET (FP) PO SCH (09:54)
[2018-07-27] MEDS: ARTIFICIAL TEARS (POLYVINYL ALCOHOL) OPTH DROPS OU SCH ×2 (09:54→21:05)
[2018-07-27] MEDS: ALLOPURINOL 100 MG TABLET (FP) PO SCH (09:54)
[2018-07-27] MEDS: FERROUS GLUCONATE 324 MG TAB (FP) PO SCH (09:54)
--- NOTE | 2018-07-27 11:09 | PN ---
Progress Note, Physician Chief Complaint: sob History of Present Illness: cannot say whether her sob feels at her usual baseline or not, only that it feels "not too bad" legs still swollen no cp, palp no cigs - Current Medication List Current Medications: Active Medications Allopurinol (Zyloprim -) 100 mg PO DAILY [facility] Last Admin: 07/27/18 09:54 Dose: 100 mg Apixaban (Eliquis -) 2.5 mg PO BID [facility] Last Admin: 07/27/18 09:53 Dose: 2.5 mg Artificial Tears (Artificial Tears) 1 drop OU BID [facility] Last Admin: 07/27/18 09:54 Dose: 1 drop Atorvastatin Calcium (Lipitor -) 20 mg PO HS [facility] Last Admin: 07/26/18 21:57 Dose: 20 mg Cholecalciferol (Vitamin D3 -) 400 unit PO DAILY [facility] Last Admin: 07/27/18 09:53 Dose: 400 unit Diltiazem HCl (Cardizem Cd -) 120 mg PO DAILY [facility] Last Admin: 07/27/18 09:54 Dose: 120 mg Ferrous Gluconate (Fergon -) 324 mg PO DAILY [facility] Last Admin: 07/27/18 09:54 Dose: 324 mg Furosemide (Lasix Injection -) 40 mg IVPUSH BID@0600,1400 [facility] Last Admin: 07/27/18 05:25 Dose: 40 mg Metoprolol Succinate (Toprol Xl -) 150 mg PO BID [facility] Last Admin: 07/27/18 09:53 Dose: 150 mg Multivitamins/Minerals/Vitamin C (Tab-A-Vit -) 1 tab PO DAILY [facility] Last Admin: 07/27/18 09:54 Dose: 1 tab - Objective Vital Signs: Vital Signs Temperature 97.4 F L 07/27/18 08:51 Pulse Rate 72 07/27/18 08:51 Respiratory Rate 18 07/27/18 08:53 Blood Pressure 128/57 L 07/27/18 08:51 O2 Sat by Pulse Oximetry (%) 97 07/27/18 08:53 Constitutional: Yes: No Distress, Calm Eyes: No: Sclera Icterus HENT: No: Nasal Congestion Cardiovascular: Yes: Regular Rate and Rhythm, JVD, S1, S2, Other (PMI non diplaced). No: Gallop, Murmur Respiratory: Yes: CTA Bilaterally, Diminished (L base). No: Accessory Muscle Use, Rales, Wheezes Gastrointestinal: Yes: Normal Bowel Sounds, Soft. No: Tenderness Musculoskeletal: Yes: Other (No kyphosis) Extremities: No: Cyanosis Edema: Yes (2-3+ ankles (in chair)) Integumentary: No: Jaundice Neurological: Yes: Alert, Oriented (x3) Psychiatric: No: Agitated Labs: CBC, BMP 07/27/18 05:30 07/27/18 05:30 INR, PTT INR 1.25 (0.83-1.09) H 07/16/18 16:30 Assessment/Plan ECG: afib, PVC. baseline wander artifact. NSTWAs diffusely--unchanged vs prior CT chest: large R effusion, small L. no pulm edema described Echo 02/14: ([facility]): LV not well seen. RV ??. mild (AV not well seen). mod-sev MR and TR. RVSP 40-50. Echo 06/2017: nl lv fn. mod rve. rv sys function moderately reduced. mild MR, mod TR. sev phtn. trivial pericardial effusion. Echo 2016: low-nl EF 50-55% (beat to beat variability). mod RV dilation, borderline depressed RV fxn. 1+ /MR, Mod TR, mod pHTN (avg TR 42 mmHg), Cath 2005: LVEDP 18, EF 60%. pRCA mild, pLAD mild, mLAD 50-60%, pLCx mild, OM1 mild. CT head: R occipital lobe infarct, likely old Carotid sono 2018: rt common carotid with mod plaque 50-69%. moderate plaque on left with borderline stenosis. 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 - ++ JVD on exam, with increase in abdomen distension and LE edema at home of late. - large R pleural effusion on CT scan (new vs 02/14 CXR)--? HF etiology? - suspect Afib HR control may be important in optimizing HF status (though may all be secondary to high filling pressures)--as disc'd - digoxin for RV inotropy previously given, not on recent office med list (not given here) - consider add spironolactone as outpt, if cannot tolerate higher doses torsemide - 07/14-: Cr stable, sob improving, still with JVD/le edema, weight down on lasix 40 mg IV BID - 07/18 Cr rising, weight 195->196, lasix held today. may be able to transition to torsemide in AM - 07/19 Cr 1.4->1.8, weight stable. would hold diuretic - 07/20 Cr improving, weight increasing. dyspnea improved. hold lasix and IVF - 07/21 Cr improved. sob stable. stable edema. weight increasing, restart home torsemide, monitor Cr - 07/22 edema worsening, sob stable. lasix 40 mg IV ordered, reevaluate in AM -07/23: start torsemide at higher dose, 40 po qd -07/24: cont torsemide -07/25: wt progressively trended up from 195 to 203 since lasix briefly held then changed to po torsemide due to uptrend in bun/creat. JVD documented in notes. pigtail catheter in pleural space continuously draining which suggests ongoing volume overload/high pulm capillary pressures/chf. wt down 203 to 200 today, on torsemide 40 qd. rec re-trial IV lasix 40 x 2 doses today (may need 80 ) -07/26: signif incr UOP yest per pt/RN (incontinent). wt inaccurate (10 lb down vs yesterday). pigtail drainage nearly stopped per pulm. renal fxn improving. remains edematous with high JVD and sob sx's. continue lasix 40 IV bid. will try decrease CCB dose to minimize RV neg inotropic effect, as below. -07/27: wt remains much improved. renal fxn stable. -07/28: wt stable 191. renal fxn stable, ? starting to trend up. will give lasix 40 iv am, 80 iv pm today and reassess tomorrow. if she remains with JVD but resp status is stable, can defer aggressive diuresis to euvolemic state as her RV failure/TR may make this very difficult. as HR remains well controlled on high dose metoprolol and dilt 120 qd, will stop CCB further to minimize RV neg inotropic effects (suspect rapid AF earlier was due to decompensated volume status). -reassess in AM, consider change to po torsemide at that time - s/p pigtail catheter for R pleural effusion 07/16, drainage slowing with plans for removal Afib - rate controlled with metoprolol and diltiazem during last admit here - dig off as of 04/16 office list (also given for RV inotropy in past)--? toxic levels. defer this med at this time - diltiazem may cause further suppression of RV contractility and worsen right sided HF - 07/26: given ongoing HF picture, will try decr diltiazem dose to 120 and titrate up metoprolol (150 bid)--aim to get off CCB if can control rate with BB alone. - 07/27: well controlled. stop diltiazem, cont metoprolol--monitor HR trend on tele - could consider amio for rate control, vs AVN ablation and PM if pt willing ( she has a history of declining invasive procedures), if cannot control well without CCB on board and if she has recurrent HF episodes - previously was off AC due to h/o GI bleed/duodenal ulcer and pt deferred f/u with GI - old infarct noted on CT head last time here--Eliquis 2.5 bid started subsequently--continue same. elev troponin: - intermediate range not diagnostic of myocardial injury (in absence of clinical picture suspicious), flat trend not c/w ACS. - ECG non-ischemic - no suspected anginal sx's CKD: -baseline creat 1.0-1.5 -HAILEY here sec to cardiorenal syndrome, then bumped transiently with diuresis -continue to monitor trend HTN: -bp controlled -cont valsartan, diltiazem, metoprolol carotid atherosclerosis, - previously declined further imaging w/u as outpt - con't asa, statin prior tx plan
[2018-07-27] MEDS ORDERED: FUROSEMIDE 40 MG/4 ML INJECTABLE VIAL IVPUSH SCH (12:12)
--- NOTE | 2018-07-27 12:43 | PN ---
Progress Note, Physician History of Present Illness: PULMONARY ALERT,OOB-CHAIR,-RESP DISTRESS,+ WOOD - Current Medication List Current Medications: Active Medications Allopurinol (Zyloprim -) 100 mg PO DAILY [facility] Last Admin: 07/27/18 09:54 Dose: 100 mg Apixaban (Eliquis -) 2.5 mg PO BID [facility] Last Admin: 07/27/18 09:53 Dose: 2.5 mg Artificial Tears (Artificial Tears) 1 drop OU BID [facility] Last Admin: 07/27/18 09:54 Dose: 1 drop Atorvastatin Calcium (Lipitor -) 20 mg PO HS [facility] Last Admin: 07/26/18 21:57 Dose: 20 mg Cholecalciferol (Vitamin D3 -) 400 unit PO DAILY [facility] Last Admin: 07/27/18 09:53 Dose: 400 unit Ferrous Gluconate (Fergon -) 324 mg PO DAILY [facility] Last Admin: 07/27/18 09:54 Dose: 324 mg Furosemide (Lasix Injection -) 80 mg IVPUSH ONCE ONE Stop: 07/27/18 14:01 Metoprolol Succinate (Toprol Xl -) 150 mg PO BID [facility] Last Admin: 07/27/18 09:53 Dose: 150 mg Multivitamins/Minerals/Vitamin C (Tab-A-Vit -) 1 tab PO DAILY [facility] Last Admin: 07/27/18 09:54 Dose: 1 tab - Objective Vital Signs: Vital Signs Temperature 97.4 F L 07/27/18 08:51 Pulse Rate 72 07/27/18 08:51 Respiratory Rate 18 07/27/18 08:53 Blood Pressure 128/57 L 07/27/18 08:51 O2 Sat by Pulse Oximetry (%) 97 07/27/18 08:53 Constitutional: Yes: Well Nourished, Calm Eyes: Yes: WNL HENT: Yes: WNL Neck: Yes: WNL Cardiovascular: Yes: Pulse Irregular, S1, S2 Respiratory: Yes: Diminished Gastrointestinal: Yes: Normal Bowel Sounds, Soft Extremities: Yes: WNL Edema: Yes Labs: CBC, BMP 07/27/18 05:30 07/27/18 05:30 INR, PTT INR 1.25 (0.83-1.09) H 07/16/18 16:30 Problem List - Problems (1) Pulmonary HTN Code(s): I27.20 - PULMONARY HYPERTENSION, UNSPECIFIED (2) Diastolic CHF, acute on chronic Code(s): I50.33 - ACUTE ON CHRONIC DIASTOLIC (CONGESTIVE) HEART FAILURE (3) Acquired lymphedema of leg Code(s): I89.0 - LYMPHEDEMA, NOT ELSEWHERE CLASSIFIED (4) Atrial fibrillation Code(s): I48.91 - UNSPECIFIED ATRIAL FIBRILLATION Qualifiers: Atrial fibrillation type: paroxysmal Qualified Code(s): I48.0 - Paroxysmal atrial fibrillation (5) HTN (hypertension) Code(s): I10 - ESSENTIAL (PRIMARY) HYPERTENSION (6) Hyperlipidemia Code(s): E78.5 - HYPERLIPIDEMIA, UNSPECIFIED (7) Pleural effusion Code(s): J90 - PLEURAL EFFUSION, NOT ELSEWHERE CLASSIFIED (8) Shortness of breath Code(s): R06.02 - SHORTNESS OF BREATH Assessment/Plan IMP ACUTE ON CHRONIC CHF DYSPNEA IMPROVING S/P FALL BILATERAL PLEURAL EFFUSIONS R>L TRANSUDATE AFIB PULMONARY HTN HTN ANEMIA PLAN DIURETICS O2 DAILY WTS INHALED BRONCHODILATORS F/U CHEST X-RAY AC MONITOR LYTES,H+H MONITOR CHEST TUBE DRAINAGE DR AJ Problem List - Problems (1) Pulmonary HTN Code(s): I27.20 - PULMONARY HYPERTENSION, UNSPECIFIED (2) Diastolic CHF, acute on chronic Code(s): I50.33 - ACUTE ON CHRONIC DIASTOLIC (CONGESTIVE) HEART FAILURE (3) Acquired lymphedema of leg Code(s): I89.0 - LYMPHEDEMA, NOT ELSEWHERE CLASSIFIED (4) Atrial fibrillation Code(s): I48.91 - UNSPECIFIED ATRIAL FIBRILLATION Qualifiers: Atrial fibrillation type: paroxysmal Qualified Code(s): I48.0 - Paroxysmal atrial fibrillation (5) HTN (hypertension) Code(s): I10 - ESSENTIAL (PRIMARY) HYPERTENSION (6) Hyperlipidemia Code(s): E78.5 - HYPERLIPIDEMIA, UNSPECIFIED (7) Pleural effusion Code(s): J90 - PLEURAL EFFUSION, NOT ELSEWHERE CLASSIFIED (8) Shortness of breath Code(s): R06.02 - SHORTNESS OF BREATH
--- NOTE | 2018-07-27 12:48 | PN ---
Physical Exam: SUBJECTIVE: Patient seen and examined this AM. She states her SOB is "not so bad " OBJECTIVE: Vital Signs Period Temp Pulse Resp BP Sys/[place] Pulse Ox Last 24 Hr 97.4 F-98.2 F 66-77 18-19 122-128/42-68 97-97 GENERAL: A&O, no acute distress HEAD: Normocephalic, atraumatic. EYES: PERRL, no scleral icterus EARS, NOSE, THROAT: oropharynx clear without exudates. Moist mucous membranes. NECK: supple without lymphadenopathy LUNGS: regular breath sounds, clear b/l, right chest tube in place. HEART: Irregularly irregular, systolic murmur ABDOMEN: Soft, nontender to palpation, normoactive bowel sounds MUSCULOSKELETAL: No bony deformities or tenderness. EXTREMITIES: warm, well-perfused. edema similar to yesterday SKIN: Warm, dry, no rashes or lesions noted Laboratory Results - last 24 hr 07/27/18 07/27/18 05:30 05:30 WBC 7.7 RBC 3.50 L Hgb 9.1 L Hct 28.0 L MCV 80.0 MCH 25.9 MCHC 32.4 RDW 23.9 H Plt Count 198 MPV 8.7 Sodium 142 Potassium 4.1 Chloride 100 Carbon Dioxide 36 H Anion Gap 7 L BUN 51 H Creatinine 1.6 H Creat Clearance w eGFR 30.35 Random Glucose 92 Calcium 8.5 Phosphorus 3.8 Magnesium 2.1 Active Medications Generic Name Dose Route Start Last Admin Trade Name Freq PRN Reason Stop Dose Admin Allopurinol 100 mg 07/16/18 10:00 07/27/18 09:54 Zyloprim - PO 100 mg DAILY [facility] Administration Apixaban 2.5 mg 07/16/18 22:00 07/27/18 09:53 Eliquis - PO 2.5 mg BID NOEMÍ Administration Artificial Tears 1 drop 07/21/18 10:00 07/27/18 09:54 Artificial Tears OU 1 drop BID NO[facility]Í Administration Atorvastatin Calcium 20 mg 07/16/18 22:00 07/26/18 21:57 Lipitor - PO 20 mg HS NO[facility]Í Administration Cholecalciferol 400 unit 07/16/18 10:00 07/27/18 09:53 Vitamin D3 - PO 400 unit DAILY [facility] Administration Ferrous Gluconate 324 mg 07/16/18 10:00 07/27/18 09:54 Fergon - PO 324 mg DAILY [facility] Administration Furosemide 80 mg 07/27/18 14:00 Lasix Injection - IVPUSH 07/27/18 14:01 ONCE ONE Metoprolol Succinate 150 mg 07/26/18 09:21 07/27/18 09:53 Toprol Xl - PO 150 mg BID [facility] Administration Multivitamins/Minerals/Vitamin C 1 tab 07/20/18 10:00 07/27/18 09:54 Tab-A-Vit - PO 1 tab DAILY [facility] Administration ASSESSMENT/PLAN: Pt is an 88 yo F with PMHx of GI bleed, afib (on eliquis), HTN, HLD, venous insuff with chronic lymphedema, OA, CHF (diastolic), back pain presenting from home after a fall but found to be SOB. Acute on Chronic Diastolic CHF -b/l effusions noted, initially Large on right, improving -Pulm consult appreciated -Cardiology consult appreciated -Thoracentesis fluid consistent with Transudate -Chest tube clamped, further management as per pulm/cardiology, can likely DC chest tube in AM pending CXR -Respiratory status improving -Lasix 40 mg IV BID as per cardiology HAILEY -Trend BMP -continue diuretics but monitor BUN/Cr -Renal consult appreciated UTI -Urine culture positive ESBL -ID consulted -watch off Abx for now Transaminitis -Resolved -RUQ US with heterogeneous liver -GI consult appreciated Fall -Denies LOC -CT noted without acute fracture or bleed -PT eval A-fib -Cardiology consult appreciated -Toprol XL 150 mg PO Daily -Decrease Cardizem 180 mg PO daily to 120 mg PO daily as per cardiology HTN -Cardizem 120 mg PO Daily -Toprol as above HLD -Lipitor 20 mg PO HS DVT Prophylaxis -Eliquis 2.5 mg PO BID FEN -Fluids: none -Electrolytes: No electrolyte abnormalities, BMP in AM -Nutrition: Na controlled diet Disposition Stable for transfer off telemetry Visit type - Emergency Visit Emergency Visit: Yes ED Registration Date: 07/12/18 Care time: The patient presented to the Emergency Department on the above date and was hospitalized for further evaluation of their emergent condition. - New Patient This patient is new to me today: No - Critical Care Critical Care patient: No
[2018-07-27] MEDS ORDERED: FUROSEMIDE 40 MG/4 ML INJECTABLE VIAL IVPUSH ONE (14:00)
--- NOTE | 2018-07-27 16:45 | PN ---
Progress Note, Physician History of Present Illness: Pt seen and examined at bedside. She feels that her edema is mildly improved. - Current Medication List Current Medications: Active Medications Allopurinol (Zyloprim -) 100 mg PO DAILY [facility] Last Admin: 07/27/18 09:54 Dose: 100 mg Apixaban (Eliquis -) 2.5 mg PO BID [facility] Last Admin: 07/27/18 09:53 Dose: 2.5 mg Artificial Tears (Artificial Tears) 1 drop OU BID [facility] Last Admin: 07/27/18 09:54 Dose: 1 drop Atorvastatin Calcium (Lipitor -) 20 mg PO HS [facility] Last Admin: 07/26/18 21:57 Dose: 20 mg Cholecalciferol (Vitamin D3 -) 400 unit PO DAILY [facility] Last Admin: 07/27/18 09:53 Dose: 400 unit Ferrous Gluconate (Fergon -) 324 mg PO DAILY [facility] Last Admin: 07/27/18 09:54 Dose: 324 mg Metoprolol Succinate (Toprol Xl -) 150 mg PO BID [facility] Last Admin: 07/27/18 09:53 Dose: 150 mg Multivitamins/Minerals/Vitamin C (Tab-A-Vit -) 1 tab PO DAILY [facility] Last Admin: 07/27/18 09:54 Dose: 1 tab - Objective Vital Signs: Vital Signs Temperature 97.8 F 07/27/18 14:59 Pulse Rate 76 07/27/18 14:59 Respiratory Rate 18 07/27/18 14:59 Blood Pressure 127/57 L 07/27/18 14:59 O2 Sat by Pulse Oximetry (%) 97 07/27/18 08:53 Constitutional: Yes: Calm Eyes: Yes: Conjunctiva Clear HENT: Yes: Atraumatic Cardiovascular: Yes: S1, S2 Respiratory: Yes: On Nasal O2, Other (chest tube) Genitourinary: Yes: WNL Edema: Yes Edema: LLE: 2+, RLE: 2+ Neurological: Yes: Oriented Psychiatric: Yes: Oriented Labs: CBC, BMP 07/27/18 05:30 07/27/18 05:30 INR, PTT INR 1.25 (0.83-1.09) H 07/16/18 16:30 Problem List - Problems (1) HAILEY (acute kidney injury) Code(s): N17.9 - ACUTE KIDNEY FAILURE, UNSPECIFIED (2) Pleural effusion Code(s): J90 - PLEURAL EFFUSION, NOT ELSEWHERE CLASSIFIED (3) Pulmonary HTN Code(s): I27.20 - PULMONARY HYPERTENSION, UNSPECIFIED (4) Diastolic CHF, acute on chronic Code(s): I50.33 - ACUTE ON CHRONIC DIASTOLIC (CONGESTIVE) HEART FAILURE Assessment/Plan Current Medications Generic Name Dose Route Start Last Admin Trade Name Selena PRN Reason Stop Dose Admin Allopurinol 100 mg 07/16/18 10:00 07/27/18 09:54 Zyloprim - PO 100 mg DAILY [facility] Administration Apixaban 2.5 mg 07/16/18 22:00 07/27/18 09:53 Eliquis - PO 2.5 mg BID [facility]Í Administration Artificial Tears 1 drop 07/21/18 10:00 07/27/18 09:54 Artificial Tears OU 1 drop BID [facility] Administration Atorvastatin Calcium 20 mg 07/16/18 22:00 07/26/18 21:57 Lipitor - PO 20 mg HS [facility]Í Administration Cholecalciferol 400 unit 07/16/18 10:00 07/27/18 09:53 Vitamin D3 - PO 400 unit DAILY [facility] Administration Ferrous Gluconate 324 mg 07/16/18 10:00 07/27/18 09:54 Fergon - PO 324 mg DAILY [facility] Administration Metoprolol Succinate 150 mg 07/26/18 09:21 07/27/18 09:53 Toprol Xl - PO 150 mg BID [facility] Administration Multivitamins/Minerals/Vitamin C 1 tab 07/20/18 10:00 07/27/18 09:54 Tab-A-Vit - PO 1 tab DAILY [facility] Administration Impression 1. HAILEY 2. hyperkalemia 3. CHF 4. pleural effusion 5. HTN 6. pulm htn 7. a-fib 8. anemia 9. proteinuria Plan - will continue to monitor renal function - diuretics per cardiology - monitor lytes - chest tube care - monitor potassium level Dr Pike
[2018-07-27] MEDS: ATORVASTATIN CA 20 MG TABLET (FP) PO SCH (21:07)
[2018-07-28] MEDS ORDERED: PT OWN MED DRAWER 7, Y5N ONE (07:21)
[2018-07-28 07:46] LABS: ANION GAP 9 MMOL/L (8-16); BLOOD UREA NITROGEN 48 mg/dL (7-18); CALCIUM 8.4 mg/dL (8.5-10.1); CHLORIDE 99 mmol/L (98-107); CO2 35 mmol/L (21-32); CREATININE 1.4 mg/dL (0.55-1.3); GLUCOSE,RANDOM 82 mg/dL (74-106); MAGNESIUM 1.9 mg/dL (1.8-2.4); PHOSPHOROUS 3.6 mg/dL (2.5-4.9); POTASSIUM 3.5 mmol/L (3.5-5.1); SODIUM 143 mmol/L (136-145)
[2018-07-28 08:17] LABS: HEMATOCRIT 28.2 % (32.4-45.2); HEMOGLOBIN 8.9 GM/dL (10.7-15.3); MCH 25.2 pg (25.7-33.7); MCHC 31.4 g/dl (32.0-36.0); MEAN CELL VOLUME 80.2 fl (80-96); PLATELET COUNT 194 K/MM3 (134-434); RBC 3.52 M/mm3 (3.60-5.2); RDW 24.1 % (11.6-15.6); WHITE BLOOD COUNT 7.5 K/mm3 (4.0-10.0)
[2018-07-28] MEDS ORDERED: MAGNESIUM OXIDE 400 MG TABLET (FP) PO ONE (08:31)
[2018-07-28] MEDS: CHOLECALCIFEROL (VITAMIN D3) 400 UNIT TABLET (FP) PO SCH (09:12)
[2018-07-28] MEDS: FERROUS GLUCONATE 324 MG TAB (FP) PO SCH (09:12)
[2018-07-28] MEDS: ALLOPURINOL 100 MG TABLET (FP) PO SCH (09:12)
[2018-07-28] MEDS: ARTIFICIAL TEARS (POLYVINYL ALCOHOL) OPTH DROPS OU SCH ×2 (09:12→21:31)
[2018-07-28] MEDS: APIXABAN 2.5 MG TABLET PO SCH ×2 (09:12→21:30)
[2018-07-28] MEDS: MULTIVITAMINS (DAILY MVI) TABLET (FP) PO SCH (09:12)
[2018-07-28] MEDS: POTASSIUM CHLORIDE TABS 20 MEQ TABLET.ER (FP) PO SCH ×2 (09:34→21:30)
--- NOTE | 2018-07-28 09:42 | PN ---
Progress Note (short form) - Note Progress Note: s: no chest pain, palps, dizziness, lightheadedness - Current Medication List Current Medications: Active Medications Allopurinol (Zyloprim -) 100 mg PO DAILY [facility] Last Admin: 07/27/18 09:54 Dose: 100 mg Apixaban (Eliquis -) 2.5 mg PO BID [facility] Last Admin: 07/27/18 09:53 Dose: 2.5 mg Artificial Tears (Artificial Tears) 1 drop OU BID [facility] Last Admin: 07/27/18 09:54 Dose: 1 drop Atorvastatin Calcium (Lipitor -) 20 mg PO HS [facility] Last Admin: 07/26/18 21:57 Dose: 20 mg Cholecalciferol (Vitamin D3 -) 400 unit PO DAILY [facility] Last Admin: 07/27/18 09:53 Dose: 400 unit Diltiazem HCl (Cardizem Cd -) 120 mg PO DAILY [facility] Last Admin: 07/27/18 09:54 Dose: 120 mg Ferrous Gluconate (Fergon -) 324 mg PO DAILY [facility] Last Admin: 07/27/18 09:54 Dose: 324 mg Furosemide (Lasix Injection -) 40 mg IVPUSH BID@0600,1400 [facility] Last Admin: 07/27/18 05:25 Dose: 40 mg Metoprolol Succinate (Toprol Xl -) 150 mg PO BID [facility] Last Admin: 07/27/18 09:53 Dose: 150 mg Multivitamins/Minerals/Vitamin C (Tab-A-Vit -) 1 tab PO DAILY [facility] Last Admin: 07/27/18 09:54 Dose: 1 tab - Objective Vital Signs: Vital Signs Temperature 97.4 F L 07/27/18 08:51 Pulse Rate 72 07/27/18 08:51 Respiratory Rate 18 07/27/18 08:53 Blood Pressure 128/57 L 07/27/18 08:51 O2 Sat by Pulse Oximetry (%) 97 07/27/18 08:53 Constitutional: Yes: No Distress, Calm Eyes: No: Sclera Icterus HENT: No: Nasal Congestion Cardiovascular: Yes: Regular Rate and Rhythm, JVD, S1, S2, Other (PMI non diplaced). No: Gallop, Murmur Respiratory: Yes: CTA Bilaterally, Diminished (L base). No: Accessory Muscle Use, Rales, Wheezes Gastrointestinal: Yes: Normal Bowel Sounds, Soft. No: Tenderness Musculoskeletal: Yes: Other (No kyphosis) Extremities: No: Cyanosis Edema: Yes (2-3+ ankles (in chair)) Integumentary: No: Jaundice Neurological: Yes: Alert, Oriented (x3) Psychiatric: No: Agitated Labs: CBC, BMP 07/27/18 05:30 07/27/18 05:30 INR, PTT INR 1.25 (0.83-1.09) H 07/16/18 16:30 Assessment/Plan ECG: afib, PVC. baseline wander artifact. NSTWAs diffusely--unchanged vs prior CT chest: large R effusion, small L. no pulm edema described Echo 02/14: ([facility]): LV not well seen. RV ??. mild (AV not well seen). mod-sev MR and TR. RVSP 40-50. Echo 06/2017: nl lv fn. mod rve. rv sys function moderately reduced. mild MR, mod TR. sev phtn. trivial pericardial effusion. Echo 2016: low-nl EF 50-55% (beat to beat variability). mod RV dilation, borderline depressed RV fxn. 1+ /MR, Mod TR, mod pHTN (avg TR 42 mmHg), Cath 2005: LVEDP 18, EF 60%. pRCA mild, pLAD mild, mLAD 50-60%, pLCx mild, OM1 mild. CT head: R occipital lobe infarct, likely old Carotid sono 2018: rt common carotid with mod plaque 50-69%. moderate plaque on left with borderline stenosis. tele: AF, good HR a/p: acute on chronic diastolic CHF with pHTN/RV failure, large R pleural effusion: - home torsemide dose 10 qd as of 04/16 visit (up to 20-40 qd in past), sees dr hargrove in office - BNP 2400, stable (ranges [id number]) - office wt 190 in 04/16, currently 203 lbs. - ++ JVD on exam, with increase in abdomen distension and LE edema at home of late. - large R pleural effusion on CT scan (new vs 02/14 CXR)--? HF etiology? - suspect Afib HR control may be important in optimizing HF status (though may all be secondary to high filling pressures)--as disc'd - digoxin for RV inotropy previously given, not on recent office med list (not given here) - consider add spironolactone as outpt, if cannot tolerate higher doses torsemide - 07/14-: Cr stable, sob improving, still with JVD/le edema, weight down on lasix 40 mg IV BID - 07/18 Cr rising, weight 195->196, lasix held today. may be able to transition to torsemide in AM - 07/19 Cr 1.4->1.8, weight stable. would hold diuretic - 07/20 Cr improving, weight increasing. dyspnea improved. hold lasix and IVF - 07/21 Cr improved. sob stable. stable edema. weight increasing, restart home torsemide, monitor Cr - 07/22 edema worsening, sob stable. lasix 40 mg IV ordered, reevaluate in AM -07/23: start torsemide at higher dose, 40 po qd -07/24: cont torsemide -07/25: wt progressively trended up from 195 to 203 since lasix briefly held then changed to po torsemide due to uptrend in bun/creat. JVD documented in notes. pigtail catheter in pleural space continuously draining which suggests ongoing volume overload/high pulm capillary pressures/chf. wt down 203 to 200 today, on torsemide 40 qd. rec re-trial IV lasix 40 x 2 doses today (may need 80 ) -07/26: signif incr UOP yest per pt/RN (incontinent). wt inaccurate (10 lb down vs yesterday). pigtail drainage nearly stopped per pulm. renal fxn improving. remains edematous with high JVD and sob sx's. continue lasix 40 IV bid. will try decrease CCB dose to minimize RV neg inotropic effect, as below. -07/27: wt stable 191. received lasix 40 mg IV x 1, 80 mg IV x 1 pm. ccb discontinued to minimize neg RV inotropic effect - 07/28: weight down to 185 lbs, no sob, per patient edema improved. restart torsemide 40 mg daily - s/p pigtail catheter for R pleural effusion 07/16, drainage slowing with plans for removal Afib - rate controlled with metoprolol and diltiazem during last admit here - dig off as of 04/16 office list (also given for RV inotropy in past)--? toxic levels. defer this med at this time - diltiazem may cause further suppression of RV contractility and worsen right sided HF - 07/26: given ongoing HF picture, will try decr diltiazem dose to 120 and titrate up metoprolol (150 bid)--aim to get off CCB if can control rate with BB alone. - 07/27: well controlled. stop diltiazem, cont metoprolol--monitor HR trend on tele - 07/28 HR stable off diltiazem, cont metoprolol - could consider amio for rate control, vs AVN ablation and PM if pt willing ( she has a history of declining invasive procedures), if cannot control well without CCB on board and if she has recurrent HF episodes - previously was off AC due to h/o GI bleed/duodenal ulcer and pt deferred f/u with GI - old infarct noted on CT head last time here--Eliquis 2.5 bid started subsequently--continue same. elev troponin: - intermediate range not diagnostic of myocardial injury (in absence of clinical picture suspicious), flat trend not c/w ACS. - ECG non-ischemic - no suspected anginal sx's CKD: -baseline creat 1.0-1.5 -HAILEY here sec to cardiorenal syndrome, then bumped transiently with diuresis -continue to monitor trend HTN: -bp controlled -cont valsartan, diltiazem, metoprolol carotid atherosclerosis, - previously declined further imaging w/u as outpt - con't asa, statin prior tx plan
[2018-07-28] MEDS: TORSEMIDE 20 MG TABLET (FP) PO SCH (11:09)
--- NOTE | 2018-07-28 12:15 | PN ---
Progress Note, Physician History of Present Illness: Pt seen and examined at bedside. She is awake and alert. She denies dysuria. - Current Medication List Current Medications: Active Medications Allopurinol (Zyloprim -) 100 mg PO DAILY [facility] Last Admin: 07/28/18 09:12 Dose: 100 mg Apixaban (Eliquis -) 2.5 mg PO BID [facility] Last Admin: 07/28/18 09:12 Dose: 2.5 mg Artificial Tears (Artificial Tears) 1 drop OU BID [facility] Last Admin: 07/28/18 09:12 Dose: 1 drop Atorvastatin Calcium (Lipitor -) 20 mg PO HS [facility] Last Admin: 07/27/18 21:07 Dose: 20 mg Cholecalciferol (Vitamin D3 -) 400 unit PO DAILY [facility] Last Admin: 07/28/18 09:12 Dose: 400 unit Ferrous Gluconate (Fergon -) 324 mg PO DAILY [facility] Last Admin: 07/28/18 09:12 Dose: 324 mg Metoprolol Succinate (Toprol Xl -) 150 mg PO BID [facility] Last Admin: 07/28/18 09:12 Dose: 150 mg Multivitamins/Minerals/Vitamin C (Tab-A-Vit -) 1 tab PO DAILY [facility] Last Admin: 07/28/18 09:12 Dose: 1 tab Potassium Chloride (K-Dur -) 40 meq PO BID [facility] Stop: 07/28/18 22:01 Last Admin: 07/28/18 09:34 Dose: 40 meq Torsemide (Demadex -) 40 mg PO DAILY [facility] - Objective Vital Signs: Vital Signs Temperature 97.8 F 07/28/18 08:09 Pulse Rate 110 H 07/28/18 08:09 Respiratory Rate 18 07/28/18 08:10 Blood Pressure 124/70 07/28/18 08:09 O2 Sat by Pulse Oximetry (%) 98 07/28/18 08:10 Constitutional: Yes: Calm Eyes: Yes: Conjunctiva Clear HENT: Yes: Atraumatic Cardiovascular: Yes: S1, S2 Respiratory: Yes: Other (chest tube) Gastrointestinal: Yes: Soft Musculoskeletal: Yes: WNL Edema: Yes Edema: LLE: 1+, RLE: 1+ Neurological: Yes: Oriented Psychiatric: Yes: Oriented Labs: CBC, BMP 07/28/18 05:30 07/28/18 05:30 INR, PTT INR 1.25 (0.83-1.09) H 07/16/18 16:30 Problem List - Problems (1) HAILEY (acute kidney injury) Code(s): N17.9 - ACUTE KIDNEY FAILURE, UNSPECIFIED (2) Pleural effusion Code(s): J90 - PLEURAL EFFUSION, NOT ELSEWHERE CLASSIFIED (3) Pulmonary HTN Code(s): I27.20 - PULMONARY HYPERTENSION, UNSPECIFIED (4) Diastolic CHF, acute on chronic Code(s): I50.33 - ACUTE ON CHRONIC DIASTOLIC (CONGESTIVE) HEART FAILURE Assessment/Plan Current Medications Generic Name Dose Route Start Last Admin Trade Name Freq PRN Reason Stop Dose Admin Allopurinol 100 mg 07/16/18 10:00 07/28/18 09:12 Zyloprim - PO 100 mg DAILY [facility] Administration Apixaban 2.5 mg 07/16/18 22:00 07/28/18 09:12 Eliquis - PO 2.5 mg BID [facility] Administration Artificial Tears 1 drop 07/21/18 10:00 07/28/18 09:12 Artificial Tears OU 1 drop BID [facility] Administration Atorvastatin Calcium 20 mg 07/16/18 22:00 07/27/18 21:07 Lipitor - PO 20 mg HS [facility] Administration Cholecalciferol 400 unit 07/16/18 10:00 07/28/18 09:12 Vitamin D3 - PO 400 unit DAILY [facility] Administration Ferrous Gluconate 324 mg 07/16/18 10:00 07/28/18 09:12 Fergon - PO 324 mg DAILY [facility] Administration Metoprolol Succinate 150 mg 07/26/18 09:21 07/28/18 09:12 Toprol Xl - PO 150 mg BID [facility] Administration Multivitamins/Minerals/Vitamin C 1 tab 07/20/18 10:00 07/28/18 09:12 Tab-A-Vit - PO 1 tab DAILY [facility] Administration Potassium Chloride 40 meq 07/28/18 10:00 07/28/18 09:34 K-Dur - PO 07/28/18 22:01 40 meq BID [facility] Administration Torsemide 40 mg 07/28/18 11:00 Demadex - PO DAILY [facility] Impression 1. HAILEY 2. hyperkalemia 3. CHF 4. pleural effusion 5. HTN 6. pulm htn 7. a-fib 8. anemia 9. proteinuria Plan - resume po torsemide - renal function is stabilizing - will need outpt follow up - discussed with medical team - can restart losartan at lower dose Dr Pike
--- NOTE | 2018-07-28 13:24 | PN ---
Teaching Attending Note Name of Resident: Louie Rubio ATTENDING PHYSICIAN STATEMENT I saw and evaluated the patient. I reviewed the resident's note and discussed the case with the resident. I agree with the resident's findings and plan as documented. SUBJECTIVE: Feels well - no SOB/cough/sputum/CP. No fever/chills OBJECTIVE: Afebrile, Hemodynamically Stable Last Vital Signs Temp Pulse Resp BP Pulse Ox 97.8 F 110 H 18 124/70 98 07/28/18 08:09 07/28/18 08:09 07/28/18 08:10 07/28/18 08:09 07/28/18 08:10 HEENT - Atraumatic/Normocephalic. Erythematous sclerae lower eyelids a bit improved Heart - S1, S2, soft SM Lungs - improved air entry bibasally, R pigtail in place. Abdomen - Soft, non-tender. Bowel Sounds normal. Extremities - Some bilateral LE edema (chronic with skin changes), no calf tenderness Neuro - AAO x 3. Tone/Power normal all extremities. Laboratory Results - last 24 hr 07/28/18 07/28/18 05:30 05:30 WBC 7.5 RBC 3.52 L Hgb 8.9 L Hct 28.2 L MCV 80.2 MCH 25.2 L MCHC 31.4 L RDW 24.1 H Plt Count 194 MPV 9.0 Sodium 143 Potassium 3.5 Chloride 99 Carbon Dioxide 35 H Anion Gap 9 BUN 48 H Creatinine 1.4 H Creat Clearance w eGFR 35.41 Random Glucose 82 Calcium 8.4 L Phosphorus 3.6 Magnesium 1.9 Current Medications Generic Name Dose Route Start Last Admin Trade Name Selena PRN Reason Stop Dose Admin Allopurinol 100 mg 07/16/18 10:00 07/28/18 09:12 Zyloprim - PO 100 mg DAILY [facility] Administration Apixaban 2.5 mg 07/16/18 22:00 07/28/18 09:12 Eliquis - PO 2.5 mg BID [facility] Administration Artificial Tears 1 drop 07/21/18 10:00 07/28/18 09:12 Artificial Tears OU 1 drop BID [facility] Administration Atorvastatin Calcium 20 mg 07/16/18 22:00 07/27/18 21:07 Lipitor - PO 20 mg HS [facility] Administration Cholecalciferol 400 unit 07/16/18 10:07/28/18 09:12 Vitamin D3 - PO 400 unit DAILY [facility] Administration Ferrous Gluconate 324 mg 07/16/18 10:00 07/28/18 09:12 Fergon - PO 324 mg DAILY [facility] Administration Metoprolol Succinate 150 mg 07/26/18 09:21 07/28/18 09:12 Toprol Xl - PO 150 mg BID [facility] Administration Multivitamins/Minerals/Vitamin C 1 tab 07/20/18 10:00 07/28/18 09:12 Tab-A-Vit - PO 1 tab DAILY [facility] Administration Potassium Chloride 40 meq 07/28/18 10:00 07/28/18 09:34 K-Dur - PO 07/28/18 22:01 40 meq BID [facility] Administration Torsemide 40 mg 07/28/18 11:00 Demadex - PO DAILY [facility] Valsartan 40 mg 07/29/18 10:00 Diovan - PO DAILY [facility] ASSESSMENT AND PLAN: 88 year old female with history of Atrial Fibrillation on Eliquis, HTN, HLD, prior GI Bleed, Venous insufficiency with chronic lymphedema, Chronic diastolic CHF, presents after sustaining a fall at home, found to be dyspneic in ED. Ix on admission: EKG - Afib, HR 108 Hip/pelvis CT, Xray- avascular necrosis of L femur, no fracture CT C spine and Head - negative for fracture or acute pathology. 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 BNP-2407.7 CXR- congestive features, cardiomegaly, R pleural effusion CT Chest - Large R pleural effusion with basilar atelectasis, mild thyromegaly. 1. Acute on Chronic Diastolic CHF with significant R pleural effusion s/p pigtail catheter drainage Treated with IV Lasix diuresis, held for a short period due to HAILEY, now resolving. Resumed on Torsemide (home dose). Mild elevation in Troponin - flat, unlikely ACS given clinical picture - Cardiology evaluated - no further investigation recommended. Echo - normal EF. Moderate to Severe TR. s/p pigtail catheter insertion 07/16 - fluid transudative - for removal today. 2. HAILEY on CKD 3 with Hyperkalemia Creat now down to 1.4 Renal US - no obstruction Resume home Torsemide. No further Renal work-up as per Nephrology. 3. Transaminitis with Hyperbilirubinemia - possibly sec to hepatic congestion vs Statin - resolved. Abdominal US demonstrates heterogenous Liver. Hepatitis panel negative MRCP - no gross abnormality, non-diagnostic sec to motion artifact, loculated pl effusion. Evaluated by GI - no further work-up recommended. 4. 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 Further work-up as per GI, as out-patient. Already on Ferrous Gluconate. Received 1 dose IV Venofer. 5. Atrial Fibrillation - Continue Metoprolol, Diltiazem and Eliquis. 6. HTN - continue Metoprolol, Valsartan, Diltiazem 7. HLD - normally on Statin - held due to elevated LFTs, now normalized. Continue to hold. 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 For ortho outpatient eval. 9 . Venous insufficiency with chronic lymphedema - resumed on Torsemide. 10. Thyromegaly on CT Chest. US Thyroid requested but apparently not performed as in-patient study at this facility. For Thyroid US and PCP Follow up on discharge. 11. Ambulatory Dysfunction s/p Fall Xray Hip/Pelvis/C-spine, Head - no acute fracture. Awaiting return to Nursing facility. 12. 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 Carotid Doppler - moderate sized plaque with hemodynamically significant stenosis, previously declined intervention. Normally on Apixaban and Statin. 13. History of Gout - continue Allopurinol. 14. ESBL in Urine - Initially on ceftriaxone, switched to Ertapenem, discontinued by ID. ESBL felt to be a colonizer - recommendation to observe off Abx. DVT Px - on Eliquis Dispo - for SNF/Rehab on discharge.
[2018-07-28] MEDS ORDERED: BACITRACIN 15 GM TUBE TOPICAL OINTMENT TP ONE (14:29)
--- NOTE | 2018-07-28 14:29 | PN ---
Physical Exam: SUBJECTIVE: Patient seen and examined this AM. She states she feels okay. She is very agreeable to having chest tube removed. OBJECTIVE: Vital Signs Period Temp Pulse Resp BP Sys/Polk Pulse Ox Last 24 Hr 97.5 F-98.1 F 76-110 18-20 111-136/57-71 98-98 GENERAL: A&O, no acute distress HEAD: Normocephalic, atraumatic. EYES: PERRL, no scleral icterus EARS, NOSE, THROAT: oropharynx clear without exudates. Moist mucous membranes. NECK: supple without lymphadenopathy LUNGS: regular breath sounds, clear b/l, right chest tube in place. HEART: Irregularly irregular, systolic murmur ABDOMEN: Soft, nontender to palpation, normoactive bowel sounds MUSCULOSKELETAL: No bony deformities or tenderness. EXTREMITIES: warm, well-perfused. edema similar to yesterday SKIN: Warm, dry, no rashes or lesions noted Laboratory Results - last 24 hr 07/28/18 07/28/18 05:30 05:30 WBC 7.5 RBC 3.52 L Hgb 8.9 L Hct 28.2 L MCV 80.2 MCH 25.2 L MCHC 31.4 L RDW 24.1 H Plt Count 194 MPV 9.0 Sodium 143 Potassium 3.5 Chloride 99 Carbon Dioxide 35 H Anion Gap 9 BUN 48 H Creatinine 1.4 H Creat Clearance w eGFR 35.41 Random Glucose 82 Calcium 8.4 L Phosphorus 3.6 Magnesium 1.9 Active Medications Generic Name Dose Route Start Last Admin Trade Name Freq PRN Reason Stop Dose Admin Allopurinol 100 mg 07/16/18 10:07/28/18 09:12 Zyloprim - PO 100 mg DAILY [facility] Administration Apixaban 2.5 mg 07/16/18 22:00 07/28/18 09:12 Eliquis - PO 2.5 mg BID [facility] Administration Artificial Tears 1 drop 07/21/18 10:00 07/28/18 09:12 Artificial Tears OU 1 drop BID [facility] Administration Atorvastatin Calcium 20 mg 07/16/18 22:00 07/27/18 21:07 Lipitor - PO 20 mg HS [facility] Administration Cholecalciferol 400 unit 07/16/18 10:00 07/28/18 09:12 Vitamin D3 - PO 400 unit DAILY [facility] Administration Ferrous Gluconate 324 mg 07/16/18 10:00 07/28/18 09:12 Fergon - PO 324 mg DAILY [facility] Administration Metoprolol Succinate 150 mg 07/26/18 09:21 07/28/18 09:12 Toprol Xl - PO 150 mg BID [facility] Administration Multivitamins/Minerals/Vitamin C 1 tab 07/20/18 10:00 07/28/18 09:12 Tab-A-Vit - PO 1 tab DAILY [facility] Administration Potassium Chloride 40 meq 07/28/18 10:00 07/28/18 09:34 K-Dur - PO 07/28/18 22:01 40 meq BID [facility] Administration Torsemide 40 mg 07/28/18 11:00 07/28/18 11:09 Demadex - PO 40 mg DAILY [facility] Administration Valsartan 40 mg 07/29/18 10:00 Diovan - PO DAILY [facility] ASSESSMENT/PLAN: Pt is an 88 yo F with PMHx of GI bleed, afib (on eliquis), HTN, HLD, venous insuff with chronic lymphedema, OA, CHF (diastolic), back pain presenting from home after a fall but found to be SOB. Acute on Chronic Diastolic CHF -b/l effusions noted, initially Large on right, improving -b/l LE edema complicated by venous insufficiency -Pulm consult appreciated -Cardiology consult appreciated -Thoracentesis fluid consistent with Transudate -Chest tube to be removed today -Respiratory status improving -Restart Torsemide 40 mg as per discussion with nephrology and cardiology recs -Can d/c pending short term rehab placement HAILEY on CKD stage III -Trend BMP -continue diuretics but monitor BUN/Cr -Renal consult appreciated -renal follow up as an outpatient UTI -Urine culture positive ESBL -ID consulted -watch off Abx for now Transaminitis -Resolved -RUQ US with heterogeneous liver -GI consult appreciated, follow up outpatient Microcytic anemia -FOBT negative -Ferrous Gluconate, 1 dose IV venofir given Mechanical Fall -Denies LOC -CT noted without acute fracture or bleed -PT eval, will require short term rehab placement A-fib -Cardiology consult appreciated -Toprol XL 150 mg PO Daily -Decrease Cardizem 180 mg PO daily to 120 mg PO daily as per cardiology HTN -Cardizem 120 mg PO Daily -Toprol as above HLD -Lipitor 20 mg PO HS Hx of Gout -continue allopurinol DVT Prophylaxis -Eliquis 2.5 mg PO BID [facility] -Fluids: none -Electrolytes: No electrolyte abnormalities, BMP in AM -Nutrition: Na controlled diet Disposition Stable for transfer off telemetry, stable for d/c after chest tube replacement Visit type - Emergency Visit Emergency Visit: Yes ED Registration Date: 07/12/18 Care time: The patient presented to the Emergency Department on the above date and was hospitalized for further evaluation of their emergent condition. - New Patient This patient is new to me today: No - Critical Care Critical Care patient: No
--- NOTE | 2018-07-28 14:33 | PN ---
Progress Note (short form) - Note Progress Note: PULMONARY Breathing continues to improve. Chest tube with minimal output. Vital Signs Period Temp Pulse Resp BP Sys/[place]k Pulse Ox Last 24 Hr 97.5 F-98.1 F 76-110 18-20 111-136/57-71 98-98 Gen: NAD at rest Heart: RRR Lung: decreased breath sounds at the bases R>L Abd: soft, nontender Ext: + edema Chest tube: serous fluid, no air leak CBC, BMP 07/28/18 05:30 07/28/18 05:30 Active Medications Allopurinol (Zyloprim -) 100 mg PO DAILY [facility] Last Admin: 07/28/18 09:12 Dose: 100 mg Apixaban (Eliquis -) 2.5 mg PO BID [facility] Last Admin: 07/28/18 09:12 Dose: 2.5 mg Artificial Tears (Artificial Tears) 1 drop OU BID [facility] Last Admin: 07/28/18 09:12 Dose: 1 drop Atorvastatin Calcium (Lipitor -) 20 mg PO HS [facility] Last Admin: 07/27/18 21:07 Dose: 20 mg Bacitracin (Bacitracin -) 1 applic TP ONCE ONE Stop: 07/28/18 14:30 Last Admin: 07/28/18 14:31 Dose: 1 applic Cholecalciferol (Vitamin D3 -) 400 unit PO DAILY [facility] Last Admin: 07/28/18 09:12 Dose: 400 unit Ferrous Gluconate (Fergon -) 324 mg PO DAILY [facility] Last Admin: 07/28/18 09:12 Dose: 324 mg Metoprolol Succinate (Toprol Xl -) 150 mg PO BID [facility] Last Admin: 07/28/18 09:12 Dose: 150 mg Multivitamins/Minerals/Vitamin C (Tab-A-Vit -) 1 tab PO DAILY [facility] Last Admin: 07/28/18 09:12 Dose: 1 tab Potassium Chloride (K-Dur -) 40 meq PO BID [facility] Stop: 07/28/18 22:01 Last Admin: 07/28/18 09:34 Dose: 40 meq Torsemide (Demadex -) 40 mg PO DAILY [facility] Last Admin: 07/28/18 11:09 Dose: 40 mg Valsartan (Diovan -) 40 mg PO DAILY [facility] A/P Acute on Chronic Diastolic Heart Failure Pleural Effusions R>L Atrial Fibrillation Pulmonary HTN HTN Anemia - can d/c chest tube - continue torsemide - monitor urine output, creatinine - O2 to keep Spo2 >90% - rate control - continue anticoagulation
[2018-07-28] MEDS: ATORVASTATIN CA 20 MG TABLET (FP) PO SCH (21:30)
[2018-07-29 06:36] LABS: HEMATOCRIT 29.7 % (32.4-45.2); HEMOGLOBIN 9.3 GM/dL (10.7-15.3); MCH 25.2 pg (25.7-33.7); MCHC 31.4 g/dl (32.0-36.0); MEAN CELL VOLUME 80.2 fl (80-96); MEAN PLT VOLUME 8.7 fl (7.5-11.1); PLATELET COUNT 203 K/MM3 (134-434); RBC 3.71 M/mm3 (3.60-5.2); RDW 25.2 % (11.6-15.6); WHITE BLOOD COUNT 7.4 K/mm3 (4.0-10.0)
[2018-07-29 07:32] LABS: ANION GAP 6 MMOL/L (8-16); BLOOD UREA NITROGEN 44 mg/dL (7-18); CALCIUM 8.5 mg/dL (8.5-10.1); CHLORIDE 101 mmol/L (98-107); CO2 35 mmol/L (21-32); CREATININE 1.4 mg/dL (0.55-1.3); GLUCOSE,RANDOM 88 mg/dL (74-106); PHOSPHOROUS 3.3 mg/dL (2.5-4.9); POTASSIUM 4.1 mmol/L (3.5-5.1); SODIUM 141 mmol/L (136-145)
[2018-07-29] MEDS: MULTIVITAMINS (DAILY MVI) TABLET (FP) PO SCH (09:53)
[2018-07-29] MEDS: TORSEMIDE 20 MG TABLET (FP) PO SCH (09:53)
[2018-07-29] MEDS: APIXABAN 2.5 MG TABLET PO SCH (09:53)
[2018-07-29] MEDS: FERROUS GLUCONATE 324 MG TAB (FP) PO SCH (09:53)
[2018-07-29] MEDS: ALLOPURINOL 100 MG TABLET (FP) PO SCH (09:54)
[2018-07-29] MEDS: CHOLECALCIFEROL (VITAMIN D3) 400 UNIT TABLET (FP) PO SCH (09:55)
[2018-07-29] MEDS: ARTIFICIAL TEARS (POLYVINYL ALCOHOL) OPTH DROPS OU SCH (09:56)
[2018-07-29] MEDS ORDERED: LOSARTAN POTASSIUM 25 MG TABLET PO SCH (10:00)
[2018-07-29] MEDS ORDERED: VALSARTAN 40 MG TABLET (FP) PO SCH (10:00)
--- NOTE | 2018-07-29 10:27 | PN ---
Progress Note (short form) - Note Progress Note: s: no chest pain, palps, dizziness, lightheadedness Current Medications Allopurinol (Zyloprim -) 100 mg PO DAILY [facility] Last Admin: 07/29/18 09:54 Dose: 100 mg Apixaban (Eliquis -) 2.5 mg PO BID [facility] Last Admin: 07/29/18 09:53 Dose: 2.5 mg Artificial Tears (Artificial Tears) 1 drop OU BID [facility] Last Admin: 07/29/18 09:56 Dose: 1 drop Atorvastatin Calcium (Lipitor -) 20 mg PO HS [facility] Last Admin: 07/28/18 21:30 Dose: 20 mg Cholecalciferol (Vitamin D3 -) 400 unit PO DAILY [facility] Last Admin: 07/29/18 09:55 Dose: 400 unit Ferrous Gluconate (Fergon -) 324 mg PO DAILY [facility] Last Admin: 07/29/18 09:53 Dose: 324 mg Metoprolol Succinate (Toprol Xl -) 150 mg PO BID [facility] Last Admin: 07/29/18 09:55 Dose: 150 mg Multivitamins/Minerals/Vitamin C (Tab-A-Vit -) 1 tab PO DAILY [facility] Last Admin: 07/29/18 09:53 Dose: 1 tab Torsemide (Demadex -) 40 mg PO DAILY [facility] Last Admin: 07/29/18 09:53 Dose: 40 mg Valsartan (Diovan -) 40 mg PO DAILY [facility] Last Admin: 07/29/18 09:53 Dose: 40 mg - Objective Vital Signs: Vital Signs Period Temp Pulse Resp BP Sys/Polk Pulse Ox Last 24 Hr 97.4 F-98.6 F 86-93 18-20 117-142/53-98 91 Constitutional: Yes: No Distress, Calm Eyes: No: Sclera Icterus HENT: No: Nasal Congestion Cardiovascular: Yes: Regular Rate and Rhythm, JVD, S1, S2, Other (PMI non diplaced). No: Gallop, Murmur Respiratory: Yes: CTA Bilaterally, Diminished (L base). No: Accessory Muscle Use, Rales, Wheezes Gastrointestinal: Yes: Normal Bowel Sounds, Soft. No: Tenderness Musculoskeletal: Yes: Other (No kyphosis) Extremities: No: Cyanosis Edema: Yes (2-3+ ankles (in chair)) Integumentary: No: Jaundice Neurological: Yes: Alert, Oriented (x3) Psychiatric: No: Agitated Assessment/Plan ECG: afib, PVC. baseline wander artifact. NSTWAs diffusely--unchanged vs prior CT chest: large R effusion, small L. no pulm edema described Echo 02/14: ([facility]): LV not well seen. RV ??. mild (AV not well seen). mod-sev MR and TR. RVSP 40-50. Echo 06/2017: nl lv fn. mod rve. rv sys function moderately reduced. mild MR, mod TR. sev phtn. trivial pericardial effusion. Echo 2016: low-nl EF 50-55% (beat to beat variability). mod RV dilation, borderline depressed RV fxn. 1+ /MR, Mod TR, mod pHTN (avg TR 42 mmHg), Cath 2005: LVEDP 18, EF 60%. pRCA mild, pLAD mild, mLAD 50-60%, pLCx mild, OM1 mild. CT head: R occipital lobe infarct, likely old Carotid sono 2018: rt common carotid with mod plaque 50-69%. moderate plaque on left with borderline stenosis. tele: AF, good HR a/p: acute on chronic diastolic CHF with pHTN/RV failure, large R pleural effusion: - home torsemide dose 10 qd as of 04/16 visit (up to 20-40 qd in past), sees dr hargrove in office - BNP 2400, stable (ranges 4212-2912) - office wt 190 in 04/16, currently 203 lbs. - ++ JVD on exam, with increase in abdomen distension and LE edema at home of late. - large R pleural effusion on CT scan (new vs 02/14 CXR)--? HF etiology? - suspect Afib HR control may be important in optimizing HF status (though may all be secondary to high filling pressures)--as disc'd - digoxin for RV inotropy previously given, not on recent office med list (not given here) - consider add spironolactone as outpt, if cannot tolerate higher doses torsemide - 07/14-18: Cr stable, sob improving, still with JVD/le edema, weight down on lasix 40 mg IV BID - 07/18 Cr rising, weight 195->196, lasix held today. may be able to transition to torsemide in AM - 07/19 Cr 1.4->1.8, weight stable. would hold diuretic - 07/20 Cr improving, weight increasing. dyspnea improved. hold lasix and IVF - 07/21 Cr improved. sob stable. stable edema. weight increasing, restart home torsemide, monitor Cr - 07/22 edema worsening, sob stable. lasix 40 mg IV ordered, reevaluate in AM -07/23: start torsemide at higher dose, 40 po qd -07/24: cont torsemide -07/25: wt progressively trended up from 195 to 203 since lasix briefly held then changed to po torsemide due to uptrend in bun/creat. JVD documented in notes. pigtail catheter in pleural space continuously draining which suggests ongoing volume overload/high pulm capillary pressures/chf. wt down 203 to 200 today, on torsemide 40 qd. rec re-trial IV lasix 40 x 2 doses today (may need 80 ) -07/26: signif incr UOP yest per pt/RN (incontinent). wt inaccurate (10 lb down vs yesterday). pigtail drainage nearly stopped per pulm. renal fxn improving. remains edematous with high JVD and sob sx's. continue lasix 40 IV bid. will try decrease CCB dose to minimize RV neg inotropic effect, as below. -07/27: wt stable 191. received lasix 40 mg IV x 1, 80 mg IV x 1 pm. ccb discontinued to minimize neg RV inotropic effect - 07/28: weight down to 185 lbs, no sob, per patient edema improved. restart torsemide 40 mg daily - 07/29: stable weight, Cr, SOB/edema improved - cont torsemide 40 mg daily - s/p pigtail catheter for R pleural effusion 07/16, removed Afib - rate controlled with metoprolol and diltiazem during last admit here - dig off as of 04/16 office list (also given for RV inotropy in past)--? toxic levels. defer this med at this time - diltiazem may cause further suppression of RV contractility and worsen right sided HF - 07/26: given ongoing HF picture, will try decr diltiazem dose to 120 and titrate up metoprolol (150 bid)--aim to get off CCB if can control rate with BB alone. - 07/27: well controlled. stop diltiazem, cont metoprolol--monitor HR trend on tele - 07/28-30 HR stable off diltiazem, cont metoprolol - could consider amio for rate control, vs AVN ablation and PM if pt willing ( she has a history of declining invasive procedures), if cannot control well without CCB on board and if she has recurrent HF episodes - previously was off AC due to h/o GI bleed/duodenal ulcer and pt deferred f/u with GI - old infarct noted on CT head last time here--Eliquis 2.5 bid started subsequently--continue same. elev troponin: - intermediate range not diagnostic of myocardial injury (in absence of clinical picture suspicious), flat trend not c/w ACS. - ECG non-ischemic - no suspected anginal sx's CKD: -baseline creat 1.0-1.5 -HAILEY here sec to cardiorenal syndrome, then bumped transiently with diuresis -continue to monitor trend HTN: -bp controlled -cont valsartan, diltiazem, metoprolol carotid atherosclerosis, - previously declined further imaging w/u as outpt - con't asa, statin prior tx plan
--- NOTE | 2018-07-29 11:03 | PN ---
Progress Note, Physician History of Present Illness: PULMONARY ALERT,OOB-CHAIR,COMFORTABLE,-RESP DISTRESS. + WOOD. PIGTAIL CATHETER REMOVED - Current Medication List Current Medications: Active Medications Allopurinol (Zyloprim -) 100 mg PO DAILY [facility] Last Admin: 07/29/18 09:54 Dose: 100 mg Apixaban (Eliquis -) 2.5 mg PO BID [facility] Last Admin: 07/29/18 09:53 Dose: 2.5 mg Artificial Tears (Artificial Tears) 1 drop OU BID [facility] Last Admin: 07/29/18 09:56 Dose: 1 drop Atorvastatin Calcium (Lipitor -) 20 mg PO HS [facility] Last Admin: 07/28/18 21:30 Dose: 20 mg Cholecalciferol (Vitamin D3 -) 400 unit PO DAILY [facility] Last Admin: 07/29/18 09:55 Dose: 400 unit Ferrous Gluconate (Fergon -) 324 mg PO DAILY [facility] Last Admin: 07/29/18 09:53 Dose: 324 mg Metoprolol Succinate (Toprol Xl -) 150 mg PO BID [facility] Last Admin: 07/29/18 09:55 Dose: 150 mg Multivitamins/Minerals/Vitamin C (Tab-A-Vit -) 1 tab PO DAILY [facility] Last Admin: 07/29/18 09:53 Dose: 1 tab Torsemide (Demadex -) 40 mg PO DAILY [facility] Last Admin: 07/29/18 09:53 Dose: 40 mg Valsartan (Diovan -) 40 mg PO DAILY [facility] Last Admin: 07/29/18 09:53 Dose: 40 mg - Objective Vital Signs: Vital Signs Temperature 98.6 F 07/29/18 06:00 Pulse Rate 88 07/29/18 06:00 Respiratory Rate 20 07/29/18 06:00 Blood Pressure 142/98 07/29/18 06:00 O2 Sat by Pulse Oximetry (%) 91 L 07/28/18 20:04 Constitutional: Yes: Well Nourished, Calm Eyes: Yes: WNL HENT: Yes: WNL Neck: Yes: WNL Cardiovascular: Yes: Pulse Irregular, S1, S2 Respiratory: Yes: Diminished Gastrointestinal: Yes: Normal Bowel Sounds, Soft Extremities: Yes: WNL Edema: Yes Labs: CBC, BMP 07/29/18 05:30 07/29/18 05:30 INR, PTT INR 1.25 (0.83-1.09) H 07/16/18 16:30 Problem List - Problems (1) Pulmonary HTN Code(s): I27.20 - PULMONARY HYPERTENSION, UNSPECIFIED (2) Diastolic CHF, acute on chronic Code(s): I50.33 - ACUTE ON CHRONIC DIASTOLIC (CONGESTIVE) HEART FAILURE (3) Acquired lymphedema of leg Code(s): I89.0 - LYMPHEDEMA, NOT ELSEWHERE CLASSIFIED (4) Atrial fibrillation Code(s): I48.91 - UNSPECIFIED ATRIAL FIBRILLATION Qualifiers: Atrial fibrillation type: paroxysmal Qualified Code(s): I48.0 - Paroxysmal atrial fibrillation (5) HTN (hypertension) Code(s): I10 - ESSENTIAL (PRIMARY) HYPERTENSION (6) Hyperlipidemia Code(s): E78.5 - HYPERLIPIDEMIA, UNSPECIFIED (7) Pleural effusion Code(s): J90 - PLEURAL EFFUSION, NOT ELSEWHERE CLASSIFIED (8) Shortness of breath Code(s): R06.02 - SHORTNESS OF BREATH Assessment/Plan IMP ACUTE ON CHRONIC CHF CLINICALLY IMPROVED DYSPNEA IMPROVING S/P FALL BILATERAL PLEURAL EFFUSIONS R>L TRANSUDATE AFIB PULMONARY HTN HTN ANEMIA PLAN DIURETICS O2 INHALED BRONCHODILATORS AC DR AJ Problem List - Problems (1) Pulmonary HTN Code(s): I27.20 - PULMONARY HYPERTENSION, UNSPECIFIED (2) Diastolic CHF, acute on chronic Code(s): I50.33 - ACUTE ON CHRONIC DIASTOLIC (CONGESTIVE) HEART FAILURE (3) Acquired lymphedema of leg Code(s): I89.0 - LYMPHEDEMA, NOT ELSEWHERE CLASSIFIED (4) Atrial fibrillation Code(s): I48.91 - UNSPECIFIED ATRIAL FIBRILLATION Qualifiers: Atrial fibrillation type: paroxysmal Qualified Code(s): I48.0 - Paroxysmal atrial fibrillation (5) HTN (hypertension) Code(s): I10 - ESSENTIAL (PRIMARY) HYPERTENSION (6) Hyperlipidemia Code(s): E78.5 - HYPERLIPIDEMIA, UNSPECIFIED (7) Pleural effusion Code(s): J90 - PLEURAL EFFUSION, NOT ELSEWHERE CLASSIFIED (8) Shortness of breath Code(s): R06.02 - SHORTNESS OF BREATH
--- NOTE | 2018-07-29 13:13 | PN ---
Progress Note, Physician History of Present Illness: Pt seen and examined at bedside. She is awake and alert. The chest tube was removed. - Current Medication List Current Medications: Active Medications Allopurinol (Zyloprim -) 100 mg PO DAILY [facility] Last Admin: 07/29/18 09:54 Dose: 100 mg Apixaban (Eliquis -) 2.5 mg PO BID [facility] Last Admin: 07/29/18 09:53 Dose: 2.5 mg Artificial Tears (Artificial Tears) 1 drop OU BID [facility] Last Admin: 07/29/18 09:56 Dose: 1 drop Atorvastatin Calcium (Lipitor -) 20 mg PO HS [facility] Last Admin: 07/28/18 21:30 Dose: 20 mg Cholecalciferol (Vitamin D3 -) 400 unit PO DAILY [facility] Last Admin: 07/29/18 09:55 Dose: 400 unit Ferrous Gluconate (Fergon -) 324 mg PO DAILY [facility] Last Admin: 07/29/18 09:53 Dose: 324 mg Metoprolol Succinate (Toprol Xl -) 150 mg PO BID [facility] Last Admin: 07/29/18 09:55 Dose: 150 mg Multivitamins/Minerals/Vitamin C (Tab-A-Vit -) 1 tab PO DAILY [facility] Last Admin: 07/29/18 09:53 Dose: 1 tab Torsemide (Demadex -) 40 mg PO DAILY [facility] Last Admin: 07/29/18 09:53 Dose: 40 mg Valsartan (Diovan -) 40 mg PO DAILY [facility] Last Admin: 07/29/18 09:53 Dose: 40 mg - Objective Vital Signs: Vital Signs Temperature 98.6 F 07/29/18 06:00 Pulse Rate 88 07/29/18 06:00 Respiratory Rate 20 07/29/18 06:00 Blood Pressure 142/98 07/29/18 06:00 O2 Sat by Pulse Oximetry (%) 91 L 07/28/18 20:04 Constitutional: Yes: Calm Eyes: Yes: Conjunctiva Clear HENT: Yes: Atraumatic Cardiovascular: Yes: S1, S2 Respiratory: Yes: On Nasal O2 Gastrointestinal: Yes: Soft, Abdomen, Obese Genitourinary: Yes: WNL Musculoskeletal: Yes: WNL Edema: Yes Edema: LLE: 2+, RLE: 2+ Integumentary: Yes: Venous Stasis Changes Neurological: Yes: Oriented Psychiatric: Yes: Oriented Labs: CBC, BMP 07/29/18 05:30 07/29/18 05:30 INR, PTT INR 1.25 (0.83-1.09) H 07/16/18 16:30 Problem List - Problems (1) HAILEY (acute kidney injury) Code(s): N17.9 - ACUTE KIDNEY FAILURE, UNSPECIFIED (2) Pleural effusion Code(s): J90 - PLEURAL EFFUSION, NOT ELSEWHERE CLASSIFIED (3) Pulmonary HTN Code(s): I27.20 - PULMONARY HYPERTENSION, UNSPECIFIED (4) Diastolic CHF, acute on chronic Code(s): I50.33 - ACUTE ON CHRONIC DIASTOLIC (CONGESTIVE) HEART FAILURE Assessment/Plan Current Medications Generic Name Dose Route Start Last Admin Trade Name Freq PRN Reason Stop Dose Admin Allopurinol 100 mg 07/16/18 10:00 07/29/18 09:54 Zyloprim - PO 100 mg DAILY [facility] Administration Apixaban 2.5 mg 07/16/18 22:00 07/29/18 09:53 Eliquis - PO 2.5 mg BID [facility] Administration Artificial Tears 1 drop 07/21/18 10:00 07/29/18 09:56 Artificial Tears OU 1 drop BID [facility] Administration Atorvastatin Calcium 20 mg 07/16/18 22:00 07/28/18 21:30 Lipitor - PO 20 mg HS [facility] Administration Cholecalciferol 400 unit 07/16/18 10:00 07/29/18 09:55 Vitamin D3 - PO 400 unit DAILY [facility] Administration Ferrous Gluconate 324 mg 07/16/18 10:00 07/29/18 09:53 Fergon - PO 324 mg DAILY [facility] Administration Metoprolol Succinate 150 mg 07/26/18 09:21 07/29/18 09:55 Toprol Xl - PO 150 mg BID [facility] Administration Multivitamins/Minerals/Vitamin C 1 tab 07/20/18 10:00 07/29/18 09:53 Tab-A-Vit - PO 1 tab DAILY [facility] Administration Torsemide 40 mg 07/28/18 11:00 07/29/18 09:53 Demadex - PO 40 mg DAILY [facility] Administration Valsartan 40 mg 07/29/18 10:00 07/29/18 09:53 Diovan - PO 40 mg DAILY [facility] Administration Impression 1. HAILEY 2. hyperkalemia 3. CHF 4. pleural effusion 5. HTN 6. pulm htn 7. a-fib 8. anemia 9. proteinuria Plan - cont torsemide - monitor potassium on diovan, can titrate dose up gradually - monitor renal function - cxr reviewed Dr Pike
--- NOTE | 2018-07-29 13:33 | DS ---
Physical Exam: SUBJECTIVE: Patient seen and examined this AM. She states she is feeling okay and is glad the chest tube is removed. OBJECTIVE: Vital Signs Period Temp Pulse Resp BP Sys/Polk Pulse Ox Last 24 Hr 97.4 F-98.6 F 86-93 18-20 117-142/53-98 91 PHYSICAL EXAM GENERAL: A&O, no acute distress HEAD: Normocephalic, atraumatic. EYES: PERRL, no scleral icterus EARS, NOSE, THROAT: oropharynx clear without exudates. Moist mucous membranes. NECK: supple without lymphadenopathy LUNGS: regular breath sounds, clear b/l, HEART: Irregularly irregular, systolic murmur ABDOMEN: Soft, nontender to palpation, normoactive bowel sounds MUSCULOSKELETAL: No bony deformities or tenderness. EXTREMITIES: warm, well-perfused. edema similar to yesterday SKIN: Warm, dry, no rashes or lesions noted LABS Laboratory Results - last 24 hr 07/29/18 07/29/18 05:30 05:30 WBC 7.4 RBC 3.71 Hgb 9.3 L Hct 29.7 L MCV 80.2 MCH 25.2 L MCHC 31.4 L RDW 25.2 H Plt Count 203 MPV 8.7 Sodium 141 Potassium 4.1 Chloride 101 Carbon Dioxide 35 H Anion Gap 6 L BUN 44 H Creatinine 1.4 H Creat Clearance w eGFR 35.41 Random Glucose 88 Calcium 8.5 Phosphorus 3.3 Magnesium 2.0 HOSPITAL COURSE: Date of Admission:07/12/18 Date of Discharge: 07/29/18 HPI on Admission: Pt is an 88 yo F with PMHx of GI bleed, afib (on eliquis), HTN, HLD, venous insuff with chronic lymphedema, OA, CHF (diastolic), back pain presenting from home after a fall but found to be SOB. Pt reported falling while trying to get back on to the walker after using the toilet and landing on her buttock without hitting her head or loss of consciousness. She remained on the floor she reported for a short period of time (about 15mins) while the rest of the family was out for about 2 hours. Pt lives with her brother. She reports SOB that is chronic but has worsened progressively. Pt says she takes a diuretic at home daily (last use was yesterday), with increased passage of urine but feels that the new diuretic is less effective than lasix was for her in past. She has chronic bilateral venous stasis for which she elevates her legs at night and could not verify WOOD, orthopnea or PND. 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 Hospital Course: Acute on Chronic Diastolic CHF -b/l effusions noted, initially Large on right, improved -b/l LE edema complicated by venous insufficiency -Thoracentesis fluid consistent with Transudate -Chest tube placed, now removed -Torsemide 40 mg daily per discussion with nephrology and cardiology recs HAILEY on CKD stage III -renal follow up as an outpatient UTI -Urine culture positive ESBL -ID consulted and recommended to hold Abx Transaminitis -Resolved -RUQ US with heterogeneous liver -Follow up with GI outpatient Microcytic anemia -FOBT negative -Ferrous Gluconate daily, 1 dose IV venofir given during admission Mechanical Fall -Denies LOC -CT noted without acute fracture or bleed -PT eval, will require short term rehab placement A-fib -Cardiology consult appreciated -Toprol XL 150 mg PO Daily -Decrease Cardizem 180 mg PO daily to 120 mg PO daily as per cardiology HTN -Cardizem 120 mg PO Daily -Toprol as above HLD -Lipitor 20 mg PO HS Hx of Gout -continue allopurinol Minutes to complete discharge: 45 Discharge Summary Reason For Visit: DIASTOLIC CONGESTIVE HEART FAILURE Current Active Problems HAILEY (acute kidney injury) (Acute) Anemia (Acute) Elevated alkaline phosphatase level (Acute) Pleural effusion (Acute) Pulmonary HTN (Acute) Shortness of breath (Acute) Diastolic CHF, acute on chronic (Chronic) Condition: Stable - Instructions Diet, Activity, Other Instructions: You were admitted following a fall and found to have edema in your legs and a large amount of fluid in your lungs. You were seen by a chain carrier and a steel fabricating supervisor who recommended diuretics (medication to help you urinate out the fluid) and also a tube to be placed around your right lung to help drain the fluid. You required oxygen therapy for a while but improved and no longer require oxygen. You are medically safe for discharge at this time to a short term rehab facility to help you get strong enough to go home. Please refer to the medication list in your discharge packet for your current medication list following this admission to the hospital. You should follow up with your primary doctor within one week of discharge from the hospital You should follow up with your chain carrier within one week of discharge You should follow up with a steel fabricating supervisor within 2 weeks of discharge You should also follow up with a GI doctor in 2 weeks. You also were noted to have an borderline abnormal Thyroid hormone level and it is recommended that you have an ultrasound of your thyroid as an outpatient. If you have significant shortness of breath or any other concerning symptoms, you should be evaluated by your doctor or return to the emergency department. Referrals: Duc Shaw MD [Staff Physician] - Dinh Lisa DO [Staff Physician] - Miquel Goodrich MD [Staff Physician] - Dania Graham MD [Primary Care Provider] - Carlos Pike MD [Staff Physician] - Disposition: [facility] - Home Medications Comprehensive Discharge Medication List: Ambulatory Orders Cholecalciferol (Vitamin D3) [Vitamin D -] 400 unit PO DAILY 02/25/18 Apixaban [Eliquis -] 2.5 mg PO BID tablet 03/09/18 Atorvastatin Ca [Lipitor] 20 mg PO HS 30 Days #30 tablet 03/09/18 Magnesium Oxide 400 mg PO BID 07/12/18 Allopurinol [Zyloprim -] 100 mg PO BID 07/13/18 Ferrous Gluconate [Fergon -] 324 mg PO DAILY tab 07/29/18 Metoprolol Succinate [Toprol XL -] 150 mg PO BID tab.sr.24h 07/29/18 Polyvinyl Alcohol [Artificial Tears] 1 drop OU BID drops 07/29/18 Torsemide [Demadex -] 40 mg PO DAILY tablet 07/29/18 Valsartan [Diovan] 40 mg PO DAILY tablet 07/29/18 This patient is new to me today: No Emergency Visit: Yes ED Registration Date: 07/12/18 Care time: The patient presented to the Emergency Department on the above date and was hospitalized for further evaluation of their emergent condition. Critical Care patient: No - Discharge Referral Referred to [facility] Med [facility] No
--- NOTE | 2018-07-29 13:43 | PN ---
Teaching Attending Note Name of Resident: Louie Rubio ATTENDING PHYSICIAN STATEMENT I saw and evaluated the patient. I reviewed the resident's note and discussed the case with the resident. I agree with the resident's findings and plan as documented. SUBJECTIVE: Feels better s/p pigtail removal - no SOB/cough/sputum/CP. No fever/ chills OBJECTIVE: Afebrile, Hemodynamically Stable Last Vital Signs Temp Pulse Resp BP Pulse Ox 98.6 F 88 20 142/98 91 L 07/29/18 06:00 07/29/18 06:00 07/29/18 06:00 07/29/18 06:00 07/28/18 20:04 HEENT - Atraumatic/Normocephalic. Erythematous sclerae lower eyelids improved Heart - S1, S2, soft SM Lungs - improved air entry bibasally, with few crackles R>L. Abdomen - Soft, non-tender. Bowel Sounds normal. Extremities - Some bilateral LE edema (chronic with skin changes), no calf tenderness Neuro - AAO x 3. Tone/Power normal all extremities. Laboratory Results - last 24 hr 07/29/18 07/29/18 05:30 05:30 WBC 7.4 RBC 3.71 Hgb 9.3 L Hct 29.7 L MCV 80.2 MCH 25.2 L MCHC 31.4 L RDW 25.2 H Plt Count 203 MPV 8.7 Sodium 141 Potassium 4.1 Chloride 101 Carbon Dioxide 35 H Anion Gap 6 L BUN 44 H Creatinine 1.4 H Creat Clearance w eGFR 35.41 Random Glucose 88 Calcium 8.5 Phosphorus 3.3 Magnesium 2.0 Current Medications Generic Name Dose Route Start Last Admin Trade Name Brandonq PRN Reason Stop Dose Admin Allopurinol 100 mg 07/16/18 10:07/29/18 09:54 Zyloprim - PO 100 mg DAILY NOEMÍ Administration Apixaban 2.5 mg 07/16/18 22:00 07/29/18 09:53 Eliquis - PO 2.5 mg BID NOEMÍ Administration Artificial Tears 1 drop 07/21/18 10:00 07/29/18 09:56 Artificial Tears OU 1 drop BID NOEMÍ Administration Atorvastatin Calcium 20 mg 07/16/18 22:00 07/28/18 21:30 Lipitor - PO 20 mg HS NOEMÍ Administration Cholecalciferol 400 unit 07/16/18 10:00 07/29/18 09:55 Vitamin D3 - PO 400 unit DAILY NOEMÍ Administration Ferrous Gluconate 324 mg 07/16/18 10:00 07/29/18 09:53 Fergon - PO 324 mg DAILY NOEMÍ Administration Metoprolol Succinate 150 mg 07/26/18 09:21 07/29/18 09:55 Toprol Xl - PO 150 mg BID NOEMÍ Administration Multivitamins/Minerals/Vitamin C 1 tab 07/20/18 10:00 07/29/18 09:53 Tab-A-Vit - PO 1 tab DAILY NOEMÍ Administration Torsemide 40 mg 07/28/18 11:00 07/29/18 09:53 Demadex - PO 40 mg DAILY NOEMÍ Administration Valsartan 40 mg 07/29/18 10:00 07/29/18 09:53 Diovan - PO 40 mg DAILY NOEMÍ Administration ASSESSMENT AND PLAN: 88 year old female with history of Atrial Fibrillation on Eliquis, HTN, HLD, prior GI Bleed, Venous insufficiency with chronic lymphedema, Chronic Diastolic CHF, presented after sustaining a fall at home, found to be dyspneic in ED. Ix on admission: EKG - Afib, HR 108 Hip/pelvis CT, Xray- avascular necrosis of L femur, no fracture CT C spine and Head - negative for fracture or acute pathology. 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 BNP-2407.7 CXR- congestive features, cardiomegaly, R pleural effusion CT Chest - Large R pleural effusion with basilar atelectasis, mild thyromegaly. 1. Acute on Chronic Diastolic CHF with significant R pleural effusion s/p pigtail catheter drainage Pigtail removed 07/28 Treated with IV Lasix diuresis, held for a short period due to HAILEY, now resolving. Resumed on Torsemide (home dose). Mild elevation in Troponin - flat, unlikely ACS given clinical picture - Cardiology evaluated - no further investigation recommended. Echo - normal EF. Moderate to Severe TR. s/p pigtail catheter insertion 07/16 - fluid transudative - s/p removal 07/28. Medically and Hemodynamically Stable for discharge with Cardiology and pulmonary follow up as out-patient. 2. HAILEY on CKD 3 with Hyperkalemia - resolved. Creat now down to 1.4 Renal US - no obstruction Resumed on home Torsemide. No further Renal work-up as per Nephrology. 3. Transaminitis with Hyperbilirubinemia - possibly sec to hepatic congestion vs Statin - resolved. Abdominal US demonstrates heterogenous Liver. Hepatitis panel negative MRCP - no gross abnormality, non-diagnostic sec to motion artifact, loculated pl effusion. Evaluated by GI - no further work-up recommended. 4. 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 Further work-up as per GI, as out-patient. Already on Ferrous Gluconate - continue. Received 1 dose IV Venofer. 5. Atrial Fibrillation - Continue Metoprolol, Diltiazem and Eliquis. 6. HTN - continue Metoprolol, Valsartan, Diltiazem 7. HLD - normally on Statin - held due to elevated LFTs, now normalized. Can resume at half dose with repeat LFTs in 3-4 weeks 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 For ortho outpatient eval. 9 . Venous insufficiency with chronic lymphedema - resumed on Torsemide. 10. Thyromegaly on CT Chest. US Thyroid requested but apparently not performed as in-patient study at this facility. For Thyroid US and PCP Follow up on discharge. 11. Ambulatory Dysfunction s/p Fall Xray Hip/Pelvis/C-spine, Head - no acute fracture. Awaiting dispo to SNF/Rehab for ongoing PT. 12. 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 Carotid Doppler - moderate sized plaque with hemodynamically significant stenosis, previously declined intervention. Normally on Apixaban and Statin. 13. History of Gout - continue Allopurinol. 14. ESBL in Urine - Initially on ceftriaxone, switched to Ertapenem, discontinued by ID. ESBL felt to be a colonizer - recommendation to observe off Abx. Currently asymptomatic, afebrile, hemodynamically stable. DVT Px - on Eliquis Dispo - for SNF/Rehab on discharge.
[2018-07-29 19:57] VITALS: BP 132/55; PULSE 89; TEMP 98
== END 2018-07-29 17:48 | DRG 291 ==
LOC: JER 11:33 → JERBED 16:14 → J4W 23:48
PROVIDERS: ADMIT Internal Medicine
PROC: 0W9930Z Drainage of Right Pleural Cavity with Drainage Device, Percutaneous Approach (ICD-10-PCS; principal; 2018-07-16)
DX: I13.0 Hypertensive heart and chronic kidney disease with heart failure and stage 1 through stage 4 chronic kidney disease, or unspecified chronic kidney disease (principal); I50.33 Acute on chronic diastolic (congestive) heart failure; M87.859 Other osteonecrosis, unspecified femur; J90 Pleural effusion, not elsewhere classified; J98.11 Atelectasis; N17.9 Acute kidney failure, unspecified; E78.5 Hyperlipidemia, unspecified; Z87.891 Personal history of nicotine dependence; I89.0 Lymphedema, not elsewhere classified; E66.9 Obesity, unspecified; R74.0 Nonspecific elevation of levels of transaminase and lactic acid dehydrogenase [LDH]; I87.2 Venous insufficiency (chronic) (peripheral); J44.9 Chronic obstructive pulmonary disease, unspecified; I27.20 Pulmonary hypertension, unspecified; E01.0 Iodine-deficiency related diffuse (endemic) goiter; E83.42 Hypomagnesemia; N18.3 Chronic kidney disease, stage 3 (moderate); Z79.01 Long term (current) use of anticoagulants; I48.0 Paroxysmal atrial fibrillation; D64.9 Anemia, unspecified; M10.9 Gout, unspecified; E87.5 Hyperkalemia; I36.1 Nonrheumatic tricuspid (valve) insufficiency; Z68.30 Body mass index [BMI] 30.0-30.9, adult
CPT/HCPCS: 32557; 36415; 70450-TC; 71045-TC-FY; 71250-TC; 72125-TC; 72192-TC; 73523-TC-FY; 74181-TC; 76604-TC; 76705-TC; 76775-TC; 80048; 80053; 80074; 80076; 81003; 81015; 82042; 82150; 82248; 82436; 82550; 82553; 82570; 82728; 82945; 83036; 83516; 83540; 83550; 83615; 83735; 83880; 83986; 84100; 84132; 84133; 84157; 84300; 84478; 84484; 85025; 85027; 85610; 85730; 86038; 86376; 87070; 87075; 87086; 87102; 87116; 87186; 87205; 87206; 87210; 87899; 88108; 88305-TC; 93005; 93010; 93306-TC; 94640; 97116-GP; 97162-GP; 99282-25; C1729; C1769; J1644; J1756; J7030

== ENCOUNTER 2019-02-15 12:32 | Inpatient (IN) | payer BC, OTHER ==
--- NOTE | 2019-02-15 12:45 | PDOC ---
Rapid Medical Evaluation Time Seen by Provider: 02/15/19 12:44 Medical Evaluation: Allergies Allergy/AdvReac Type Severity Reaction Status Date / Time No Known Allergies Allergy Verified 07/12/18 12:16 02/15/19 12:44 CC: water retention PE: Crackles present bilaterally. +4 pedal edema. Orders: cardiac w/u Patient will proceed to ED for continued evaluation. Discharge Disposition - Diagnosis Diastolic CHF, acute on chronic - Referrals - Patient Instructions - Post Discharge Activity
[2019-02-15] MEDS ORDERED: FUROSEMIDE 40 MG/4 ML INJECTABLE VIAL IVPUSH ONE ×2 (12:46→14:27)
[2019-02-15 13:30] LABS: BASO % 0.8 % (0-2.0); EOS % 1.8 % (0-4.5); HEMATOCRIT 31.8 % (32.4-45.2); HEMOGLOBIN 9.6 GM/dL (10.7-15.3); LYMPH % 20.2 % (8-40); MCH 23.5 pg (25.7-33.7); MCHC 30.3 g/dl (32.0-36.0); MEAN CELL VOLUME 77.5 fl (80-96); MEAN PLT VOLUME 7.8 fl (7.5-11.1); MONO % 10.4 % (3.8-10.2); NEUT % 66.8 % (42.8-82.8); PLATELET COUNT 251 K/MM3 (134-434); RBC 4.11 M/mm3 (3.60-5.2); RDW 21.1 % (11.6-15.6); WHITE BLOOD COUNT 6.9 K/mm3 (4.0-10.0)
--- NOTE | 2019-02-15 13:46 | PDOC ---
History of Present Illness - General Chief Complaint: Edema Stated Complaint: RETAINING FLUIDS Time Seen by Provider: 02/15/19 12:44 History Source: Patient, Family (Niece at bedside.), Old Records Exam Limitations: No Limitations - History of Present Illness Initial Comments: HPI: 88 y/o female presenting to [facility] ER from Dr[facility] for bilateral lower extremity swelling and shortness of breath since Friday. Endorses trouble walking secondary to the symptoms. States she only takes her Torsemide sometimes because she does not like having to frequently go to the bathroom. Admitted to this facility in Jun 2018 for similar symptoms. Echo dated 14 Jul 2018 revealed normal LV size and function. EF 66%. Moderate to severe tricuspid regurgitation. PCP: Dr. Graham Software Tools Engineer: Dr. 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 No cough or URI symptoms. GI: Denies vomiting or diarrhea : Denies painful urination MSK: Denies recent trauma Skin: Denies new rashes Neuro: Denies new numbness or tingling or weakness Endocrine: Denies polyuria Heme: Denies bleeding or bruising Physical Examination: Constitutional: Well-developed, well-nourished, nontoxic elderly adult female in no acute distress or obvious discomfort. Found semi-churchill's on hospital hallway bed eating a sandwich. Alert and oriented x4. Answered all questions appropriately and completely. Speech was non-labored, non-pressured. Head: Normocephalic. No obvious external signs of trauma. Cardiovascular / Chest: Irregularly irregular rate and rhythm. No murmur, rubs, clicks, or gallops. Peripheral pulses: radial pulses full. Respiratory: Breathing unlabored. Speaking in multi-word responses without pausing. Equal chest rise and fall. Trace rales bilaterally without stridor or wheezing. Gastrointestinal: abdomen is soft, non-tender, non-distended. Ventral hernia that reduces spontaneously. Neuro: Alert and oriented. Moving all four extremities spontaneously. Skin: 3+ pretibial edema bilaterally with discoloration and trace clear fluid weeping. Single bullous lesion to anterior right lower extremity. No overlying warmth or streaking. Psych: Affect: appropriate. Mood: normal. MDM: *Reviewed vital signs, nursing notes, and prior visit documentation (if available). 88 y/o female presenting from cardiology clinic for acute CHF exacerbation and IV diuresis. Poor compliance with Torsemide therapy. Afebrile. Vitals unremarkable for hypotension or tachycardia. Normoxic on room air. Physical exam as described above. EKG revealed a-fib. Troponin not elevated. BNP elevated above historic baseline. CXR revealed right pleural effusion, similar to findings in 14:[address] Cortez. Verbally appraised of the pts HPI, ED course, and current plan of management. Suggested 80mg of IV Lasix and a pulmonology consult. Ordered Lasix therapy. Placed consult request for Dr. Shaw. ED Resident Dr. Clifford admitted pt to Dr. Reid. Oumar Sandoval M.D., PGY2 Emergency Medicine Resident Past History - Past Medical History Allergies/Adverse Reactions: Allergies Allergy/AdvReac Type Severity Reaction Status Date / Time No Known Allergies Allergy Verified 02/15/19 12:46 Home Medications: Ambulatory Orders Cholecalciferol (Vitamin D3) [Vitamin D -] 400 unit PO DAILY 02/25/18 Apixaban [Eliquis -] 2.5 mg PO BID tablet 03/09/18 Magnesium Oxide 400 mg PO BID 07/12/18 Allopurinol [Zyloprim -] 100 mg PO BID 07/13/18 Atorvastatin Ca [Lipitor] 10 mg PO HS #30 tablet 07/29/18 Ferrous Gluconate [Fergon -] 324 mg PO DAILY tab 07/29/18 Metoprolol Succinate [Toprol XL -] 150 mg PO BID tab.sr.24h 07/29/18 Polyvinyl Alcohol [Artificial Tears] 1 drop OU BID drops 07/29/18 Torsemide [Demadex -] 40 mg PO DAILY tablet 07/29/18 Valsartan [Diovan] 40 mg PO DAILY tablet 07/29/18 Cardiac Disorders: Yes (afib) COPD: No CHF: Yes GI Disorders: Yes (gi bleed 2* to coumadin) HTN: Yes Hypercholesterolemia: Yes - Surgical History Abdominal Surgery: Yes Cholecystectomy: Yes - Suicide/Smoking/Psychosocial Hx Smoking History: Never smoked Have you smoked in the past 12 months: No Hx Alcohol Use: No Drug/Substance Use Hx: No Substance Use Type: None Hx Substance Use Treatment: No *Physical Exam - Vital Signs Last Vital Signs Temp Pulse Resp BP Pulse Ox 97.9 F 87 16 139/62 99 02/15/19 12:38 02/15/19 12:38 02/15/19 12:38 02/15/19 12:38 02/15/19 12:38 ED Treatment Course - LABORATORY CBC & Chemistry Diagram: 02/15/19 13:15 02/15/19 13:15 - ADDITIONAL ORDERS Additional order review: 02/15/19 13:15 RBC 4.11 MCV 77.5 L MCHC 30.3 L RDW 21.1 H MPV 7.8 D Neutrophils % 66.8 Lymphocytes % 20.2 D Monocytes % 10.4 H Eosinophils % 1.8 Basophils % 0.8 - Medications Given in the ED: ED Medications Discontinued Medications Generic Name Dose Route Start Last Admin Trade Name Frejesenia PRN Reason Stop Dose Admin Furosemide 40 mg 02/15/19 12:46 02/15/19 13:16 Lasix Injection - IVPUSH 02/15/19 12:47 Not Given ONCE ONE *DC/Admit/Observation/Transfer Diagnosis at time of Disposition: Diastolic CHF, acute on chronic, Pleural effusion, Shortness of breath, Weakness, Acquired lymphedema of leg - Discharge Dispostion Condition at time of disposition: Stable Decision to Admit order: Yes - Referrals Referrals: Dania Graham MD [Primary Care Provider] - - Patient Instructions - Post Discharge Activity
[2019-02-15 13:58] LABS: ALBUMIN 3.3 g/dl (3.4-5.0); BILIRUBIN,TOTAL 1.6 mg/dL (0.2-1); BLOOD UREA NITROGEN 30.9 mg/dL (7-18); CALCIUM 9.4 mg/dL (8.5-10.1); CREATININE 1.4 mg/dL (0.55-1.3); MAGNESIUM 2.2 mg/dL (1.8-2.4); POTASSIUM 4.1 mmol/L (3.5-5.1); TOT PROT 6.8 g/dl (6.4-8.2)
[2019-02-15 14:15] LABS: INR 1.52 (0.83-1.09)
--- NOTE | 2019-02-15 14:23 | PDOC ---
Attending Attestation - Resident Resident Name: SandovalOumar - ED Attending Attestation I have performed the following: I have examined & evaluated the patient, The case was reviewed & discussed with the resident, I agree w/resident's findings & plan, Exceptions are as noted - HPI HPI: 02/15/19 14:24 Ms. 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 Pt has noted dyspnea on exertion She is non compliant with lasix because she doesn't want to have to walk recently admitted for something similar Echo dated 14 Jul 2018 revealed normal LV size and function. EF 66%. Moderate to severe tricuspid regurgitation. 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 Moist mucous membranes. NECK: Normal range of motion, supple, no nuchal rigidity (+) LAD LUNGS: decreased breath sounds at the bases, No wheezes HEART:Regular rate and rhythm, normal S1 and S2 without murmur, rub or gallop. ABDOMEN: Soft, nontender EXTREMITIES: Normal range of motion, no edema. NEUROLOGICAL: Cranial nerves II through XII grossly intact. Normal speech. No focal neurological deficits. SKIN: Bilateral 3+ lower extremity pitting edema, (+) water blister on the leg - Medical Decision Making 02/15/19 14:46 88 yo F presenting with fluid overloading Will do: labs EKG CXR Admit EKG: Afib rate of 82 bpm, Right axis deviation, intervals nml, no ST elevation or depression, t waves upright 02/15/19 14:47 Laboratory Tests 02/15/19 02/15/19 02/15/19 13:15 13:15 13:15 WBC 6.9 Hgb 9.6 L Hct 31.8 L Plt Count 251 D BUN 30.9 H Creatinine 1.4 H Creatine Kinase 189 Creatine Kinase Index 2.9 CK-MB (CK-2) 5.6 H Troponin I 0.02 B-Natriuretic Peptide 02/15/19 13:15 WBC Hgb Hct Plt Count BUN Creatinine Creatine Kinase Creatine Kinase Index CK-MB (CK-2) Troponin I B-Natriuretic Peptide 4365.1 H CXR: Right pleural effusion Will admit Will diurese Call placed to Dr. Cortez who requests admission *DC/Admit/Observation/Transfer Diagnosis at time of Disposition: Diastolic CHF, acute on chronic, Pleural effusion, Shortness of breath, Weakness, Acquired lymphedema of leg - Referrals Referrals: Dania Graham MD [Primary Care Provider] - - Patient Instructions - Post Discharge Activity
--- NOTE | 2019-02-15 14:54 | HP ---
CHIEF COMPLAINT:worsening lower ext edema , sob PCP:Santos Najera HISTORY OF PRESENT ILLNESS: 88 y/o female with PMHX of HTN, HLD, Afib , B/L LE lymph edema , D CHF , presenting to [facility] ER from Dr[facility] for bilateral lower extremity swelling and shortness of breath for the last 3 days . Endorses trouble walking secondary to the symptoms. States she only takes her Torsemide sometimes because she does not like having to frequently go to the bathroom. denies nay fever , chills, N/V/D/C, denies any cough, but reports some chest tightness , she can not sleep flat , she used 5 pillows , she only walk 5 steps before she develop sob, denies any urinary symptoms Admitted to this facility in Jun 2018 for similar symptoms. Echo dated 14 Jul 2018 revealed normal LV size and function. EF 66%. Moderate to severe tricuspid regurgitation. 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 - CKD PAST SURGICAL HISTORY: Hysterectomy , craniotomy , cataract , cholecystectomy Social History: Smoking:denies Alcohol:denies Drugs: denies Family History:Heart disease with her mother Allergies No Known Allergies Allergy (Verified 02/15/19 12:46) HOME MEDICATIONS: Home Medications Medication Instructions Recorded Cholecalciferol (Vitamin D3) 400 unit PO DAILY 02/25/18 [Vitamin D -] Apixaban [Eliquis -] 2.5 mg PO BID tablet 03/09/18 Magnesium Oxide 400 mg PO BID 07/12/18 Allopurinol [Zyloprim -] 100 mg PO BID 07/13/18 Atorvastatin Ca [Lipitor] 10 mg PO HS #30 tablet 07/29/18 Ferrous Gluconate [Fergon -] 324 mg PO DAILY tab 07/29/18 Metoprolol Succinate [Toprol XL -] 150 mg PO BID tab.sr.24h 07/29/18 Polyvinyl Alcohol [Artificial 1 drop OU BID drops 07/29/18 Tears] Torsemide [Demadex -] 40 mg PO DAILY tablet 07/29/18 Valsartan [Diovan] 40 mg PO DAILY tablet 07/29/18 REVIEW OF SYSTEMS CONSTITUTIONAL: Absent: fever, chills, diaphoresis, generalized weakness, malaise, loss of appetite, weight change HEENT: Absent: rhinorrhea, nasal congestion, throat pain, throat swelling, difficulty swallowing, mouth swelling, ear pain, eye pain, visual changes CARDIOVASCULAR: Absent: chest pain, syncope, palpitations, irregular heart rate, lightheadedness , peripheral edema RESPIRATORY: Absent: cough, shortness of breath, dyspnea with exertion, orthopnea, wheezing, stridor, hemoptysis GASTROINTESTINAL: Absent: abdominal pain, abdominal distension, nausea, vomiting, diarrhea, constipation, melena, hematochezia GENITOURINARY: Absent: dysuria, frequency, urgency, hesitancy, hematuria, flank pain, genital pain MUSCULOSKELETAL: Absent: myalgia, arthralgia, joint swelling, back pain, neck pain SKIN: Absent: rash, itching, pallor HEMATOLOGIC/IMMUNOLOGIC: Absent: easy bleeding, easy bruising, lymphadenopathy, frequent infections ENDOCRINE: Absent: unexplained weight gain, unexplained weight loss, heat intolerance, cold intolerance NEUROLOGIC: Absent: headache, focal weakness or paresthesias, dizziness, unsteady gait, seizure, mental status changes, bladder or bowel incontinence PSYCHIATRIC: Absent: anxiety, depression, suicidal or homicidal ideation, hallucinations. PHYSICAL EXAMINATION Vital Signs - 24 hr 02/15/19 12:38 Temperature 97.9 F Pulse Rate 87 Respiratory 16 Rate Blood Pressure 139/62 O2 Sat by Pulse 99 Oximetry (%) GENERAL: Awake, alert, and fully oriented, in no acute distress. HEAD: Normal with no signs of trauma. EYES: Pupils equal, round and reactive to light, extraocular movements intact, EARS, NOSE, THROAT: Ears normal, nares patent, oropharynx clear without exudates. Moist mucous membranes. NECK: , supple LUNGS: decrease breath sounds at the bases , bibasilar chrackles worse on the right HEART: Regular rate and rhythm, normal S1 and S2 without murmur, rub or gallop. ABDOMEN: obese Soft, nontender, not distended, normoactive bowel sounds, LOWER EXTREMITIES: 2+ pulses, warm, well-perfused. No calf tenderness. +2 peripheral edema. right LE puple 1x1 cm NEUROLOGICAL: no focAL Deficit . Normal speech. PSYCHIATRIC: Cooperative. Laboratory Results - last 24 hr 02/15/19 02/15/19 02/15/19 13:15 13:15 13:15 WBC 6.9 RBC 4.11 Hgb 9.6 L Hct 31.8 L MCV 77.5 L MCH 23.5 L MCHC 30.3 L RDW 21.1 H Plt Count 251 D MPV 7.8 D Absolute Neuts (auto) 4.6 Neutrophils % 66.8 Lymphocytes % 20.2 D Monocytes % 10.4 H Eosinophils % 1.8 Basophils % 0.8 Nucleated RBC % 0 PT with INR INR Sodium 145 Potassium 4.1 Chloride 110 H Carbon Dioxide 27 Anion Gap 8 BUN 30.9 H Creatinine 1.4 H Est GFR (CKD-EPI)AfAm 38.51 Est GFR (CKD-EPI)NonAf 33.23 Random Glucose 86 Calcium 9.4 Magnesium 2.2 Total Bilirubin 1.6 H AST 32 ALT 23 Alkaline Phosphatase 207 H Creatine Kinase 189 Creatine Kinase Index 2.9 CK-MB (CK-2) 5.6 H Troponin I 0.02 B-Natriuretic Peptide Total Protein 6.8 Albumin 3.3 L 02/15/19 02/15/19 13:15 13:15 WBC RBC Hgb Hct MCV MCH MCHC RDW Plt Count MPV Absolute Neuts (auto) Neutrophils % Lymphocytes % Monocytes % Eosinophils % Basophils % Nucleated RBC % PT with INR 18.00 H INR 1.52 H Sodium Potassium Chloride Carbon Dioxide Anion Gap BUN Creatinine Est GFR (CKD-EPI)AfAm Est GFR (CKD-EPI)NonAf Random Glucose Calcium Magnesium Total Bilirubin AST ALT Alkaline Phosphatase Creatine Kinase Creatine Kinase Index CK-MB (CK-2) Troponin I B-Natriuretic Peptide 4365.1 H Total Protein Albumin CBC, BMP 02/15/19 13:15 02/15/19 13:15 ASSESSMENT/PLAN: # CHF # HAILEY # Anemia Pt is an 88 yo F with PMHx of GI bleed, afib (on eliquis), HTN, HLD, venous insuff with chronic lymphedema, OA, CHF (diastolic), back pain was sent ot the hospital By her meal grinder tender Dr Dana 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 admitted to [facility] for CHF exacerbation. #SOB secondary to acute exacerbaton of HFPEF * 2/2 non compliance with her diuretics she is on demadex 40 daily, she is taking 20 only and not every day * BNP-4300 * consult cardiology started on 8o IV lasix BID * daily weight , I&O * Salt restriction * Water restriction * ECHO in June with EF 66 % * Pulm consult Dr Valeria Schumacher, * EKG- afib without clear JOJO/STD, QTC 476 , right axis deviation #R Pleural effusion * significant pleural effusion (mild R pleural effusion in past) * pulmonary consult * iv lasix * repeat CXR in AM #afib (on eliquis) * Metoprolol 150 mg bid * valsartan 40 daily # Microcytic anemia H/H stable , no active bleeding , monitor daily , cont Ferrous #HTN * Metoprolol 150 BID ,Valsartan 40 Daily #HLD * cont Atorvastatain 20 H #Avascular necrosis of head of femur * Not on glucocorticoids, no fractures, follow pleural effusion (r/o background malignancy) * Cont statins * Cont anticoagulation * For outpt ortho follow up #venous insuff with chronic lymphedema, * No evidence of ulcers, or inflammation * cont Diuresis * leg elevation #Hx of GI bleed * Has been stable on Eliquis * Monitor H/H #FEN * Restrict salt <2g/day, Fluid <1L/day * Monitor lytes, replete as needed * Sodium controlled diet #PPx * On eliquis #Dispo * Tele Visit type - Emergency Visit Emergency Visit: Yes Care time: The patient presented to the Emergency Department on the above date and was hospitalized for further evaluation of their emergent condition. - New Patient This patient is new to me today: Yes Date on this admission: 02/15/19 - Critical Care Critical Care patient: No ATTENDING PHYSICIAN STATEMENT I saw and evaluated the patient. I reviewed the resident's note and discussed the case with the resident. I agree with the resident's findings and plan as documented. SUBJECTIVE: OBJECTIVE: ASSESSMENT AND PLAN:
--- NOTE | 2019-02-15 15:03 | PN ---
Progress Note (short form) - Note Progress Note: Patient evaluated this morning in clinic, since Friday not feeling well, short of breath with exertion and increased edema. Has not been taking torsemide as prescribed, should be on 40 mg daily was taking 20 mg daily. Rales and 2+ fern lower ext edema on exam. History of afib on eliquis, HTN, HLD, CAD, chronic diastolic HF. Referred to ER for IV diuresis. CXR R pleural effusion, BNP >4000, Cr at baseline, trop neg x 1. Would start with lasix 80 mg IV BID, monitor daily weights, Cr, lytes.
[2019-02-15] MEDS ORDERED: FUROSEMIDE 40 MG/4 ML INJECTABLE VIAL ONE (16:21)
--- NOTE | 2019-02-15 17:41 | PN ---
Teaching Attending Note Name of Resident: Andrey Garland ATTENDING PHYSICIAN STATEMENT I saw and evaluated the patient. I reviewed the resident's note and discussed the case with the resident. I agree with the resident's findings and plan as documented with exceptions below. SUBJECTIVE: 88 yof with PMhx of diastolic HF, AFib on Eliquis, GI bleed, venous insufficiency with chronic lymphedema, HTN, HLD, last admitted with CHF/Right transudative pleural effusion in 06/2018 s/p chest tube/diuresis, comes with progressive bilateral LE edema, dyspnea on exertion, weight gain, orthopnea/PND worse over last few days. patient reports non compliance with her torsemide as it makes her go to bathroom often. Also dietary non compliance. Denies any fevers, chills, chest pain, palpitations, abdominal pain or urinary symptoms. OBJECTIVE: Vital Signs Period Temp Pulse Resp BP Sys/[place] Pulse Ox Last 24 Hr 97.9 F 87 16 139/62 99 Intake & Output 02/12/19 02/13/19 02/14/19 02/15/19 23:59 23:59 23:59 23:59 Weight 190 lb GENERAL: Awake, alert, and fully oriented, mild use of accessory muscles of respiration HEAD: Normal with no signs of trauma. EYES: Pupils equal, round and reactive to light, extraocular movements intact, sclera anicteric, conjunctiva clear. No lid lag. EARS, NOSE, THROAT: Ears normal, nares patent, oropharynx clear without exudates. Moist mucous membranes. NECK: soft, supple, pos JVD, neck vein distension LUNGS: decreased breath sounds at bases, R>L, some scattered heather HEART: S1S2 irregular ABDOMEN: soft, obese, NT throughout MUSCULOSKELETAL: Normal range of motion at all joints. No bony deformities or tenderness. No CVA tenderness. UPPER EXTREMITIES: 2+ pulses, warm, well-perfused. No cyanosis. No clubbing. No peripheral edema. LOWER EXTREMITIES: 3+ -pedal edema with some erythema upto knees, 1 cm blister mild left leg, pos pulses NEUROLOGICAL: AAOx3, power 4/5, facial symmetry, tongue midline, moves all extremities freely, speech normal, Gait not observed PSYCHIATRIC: Cooperative. Good eye contact. Appropriate mood and affect. SKIN: Warm, dry, normal turgor, no rashes or lesions noted, normal capillary refill. Home Medications Medication Instructions Recorded Cholecalciferol (Vitamin D3) 400 unit PO DAILY 02/25/18 [Vitamin D -] Apixaban [Eliquis -] 2.5 mg PO BID tablet 03/09/18 Magnesium Oxide 400 mg PO BID 07/12/18 Allopurinol [Zyloprim -] 100 mg PO DAILY 07/13/18 Ferrous Gluconate [Fergon -] 324 mg PO DAILY tab 07/29/18 Polyvinyl Alcohol [Artificial 1 drop OU BID drops 07/29/18 Tears] Torsemide [Demadex -] 40 mg PO DAILY tablet 07/29/18 Valsartan [Diovan] 40 mg PO DAILY tablet 07/29/18 Atorvastatin Ca [Lipitor] 20 mg PO HS 02/15/19 Metoprolol Succinate [Toprol Xl] 150 mg PO BID 02/15/19 Active Medications Allopurinol (Zyloprim -) 100 mg PO DAILY NOEM[facility] Apixaban (Eliquis -) 2.5 mg PO BID NOEM[facility] Artificial Tears (Artificial Tears) 1 drop OU BID NOEMÍ Atorvastatin Calcium (Lipitor -) 20 mg PO HS [facility] Cholecalciferol (Vitamin D3 -) 400 unit PO DAILY NOEM[facility] Ferrous Gluconate (Fergon -) 324 mg PO DAILY [facility] Furosemide (Lasix Injection -) 80 mg IVPB BID@0600,1400 NO[facility] Magnesium Oxide (Mag-Ox -) 400 mg PO BID NOEM[facility] Metoprolol Succinate (Toprol Xl -) 150 mg PO BID NOEM[facility] Valsartan (Diovan -) 40 mg PO DAILY [facility] Laboratory Results - last 24 hr 02/15/19 02/15/19 02/15/19 13:15 13:15 13:15 WBC 6.9 RBC 4.11 Hgb 9.6 L Hct 31.8 L MCV 77.5 L MCH 23.5 L MCHC 30.3 L RDW 21.1 H Plt Count 251 D MPV 7.8 D Absolute Neuts (auto) 4.6 Neutrophils % 66.8 Lymphocytes % 20.2 D Monocytes % 10.4 H Eosinophils % 1.8 Basophils % 0.8 Nucleated RBC % 0 PT with INR INR Sodium 145 Potassium 4.1 Chloride 110 H Carbon Dioxide 27 Anion Gap 8 BUN 30.9 H Creatinine 1.4 H Est GFR (CKD-EPI)AfAm 38.51 Est GFR (CKD-EPI)NonAf 33.23 Random Glucose 86 Calcium 9.4 Magnesium 2.2 Total Bilirubin 1.6 H AST 32 ALT 23 Alkaline Phosphatase 207 H Creatine Kinase 189 Creatine Kinase Index 2.9 CK-MB (CK-2) 5.6 H Troponin I 0.02 B-Natriuretic Peptide Total Protein 6.8 Albumin 3.3 L 02/15/19 02/15/19 13:15 13:15 WBC RBC Hgb Hct MCV MCH MCHC RDW Plt Count MPV Absolute Neuts (auto) Neutrophils % Lymphocytes % Monocytes % Eosinophils % Basophils % Nucleated RBC % PT with INR 18.00 H INR 1.52 H Sodium Potassium Chloride Carbon Dioxide Anion Gap BUN Creatinine Est GFR (CKD-EPI)AfAm Est GFR (CKD-EPI)NonAf Random Glucose Calcium Magnesium Total Bilirubin AST ALT Alkaline Phosphatase Creatine Kinase Creatine Kinase Index CK-MB (CK-2) Troponin I B-Natriuretic Peptide 4365.1 H Total Protein Albumin CXR results and images reviewed EKG afib, Rt axis deviation, QTC 476 ASSESSMENT AND PLAN: 88 yof with PMhx of diastolic HF, AFib on Eliquis, GI bleed, venous insufficiency with chronic lymphedema, HTN, HLD, last admitted with CHF/Right transudative pleural effusion in 06/2018 s/p chest tube/diuresis admitted with acute CHF exacerbation in the setting of medication+/- dietary non compliance. -Acute on chronic diastolic heart failure exacerbation, in the setting of medication+/- dietary non compliance -Right pleural effusion, likely from above -Atrial fibrillation on eliquis -HTN -HLD -GI bleed -Venous insufficiency/Chronic lymphedema Plan: lasix 80 mg IV bid, strict I/Os, daily weights Cardiology input noted. Telemetry. Continue metoprolol/eliquis/statin/ARB/Mg Dispo pending clinical improvement. Discussed with patient and daughter at bedside in detail, all questions answered. Admit to inpatient telemetry total admit time 65 min.
[2019-02-15] MEDS ORDERED: ALLOPURINOL 100 MG TABLET (FP) PO SCH (22:00)
[2019-02-15 22:20] LABS: URINE APPEARANCE CLEAR; URINE BILIRUBIN NEGATIVE (NEGATIVE); URINE COLOR YELLOW; URINE GLUCOSE (UA) NEGATIVE (NEGATIVE); URINE KETONE NEGATIVE (NEGATIVE); URINE LEUK ESTERASE NEGATIVE (NEGATIVE); URINE NITRITE NEGATIVE (NEGATIVE); URINE PROTEIN NEGATIVE (NEGATIVE); URINE UROBILINOGEN 0.2 mg/dL (0.2-1.0)
[2019-02-15] MEDS ORDERED: APIXABAN 5 MG TABLET PO ONE (22:27)
[2019-02-15] MEDS ORDERED: ATORVASTATIN CA 20 MG TABLET (FP) ONE (22:27)
[2019-02-15] MEDS ORDERED: MAGNESIUM OXIDE 400 MG TABLET (FP) ONE (22:28)
[2019-02-15] MEDS: MAGNESIUM OXIDE 400 MG TABLET (FP) PO SCH (22:39)
[2019-02-15] MEDS: ATORVASTATIN CA 10 MG TABLET (FP) PO SCH (22:39)
[2019-02-15] MEDS: APIXABAN 2.5 MG TABLET PO SCH (22:39)
[2019-02-15] MEDS: ARTIFICIAL TEARS (POLYVINYL ALCOHOL) OPTH DROPS OU SCH (23:09)
[2019-02-16 06:47] LABS: BASO % 0.5 % (0-2.0); EOS % 1.8 % (0-4.5); HEMATOCRIT 28.3 % (32.4-45.2); HEMOGLOBIN 8.9 GM/dL (10.7-15.3); LYMPH % 19.4 % (8-40); MCHC 31.3 g/dl (32.0-36.0); MEAN CELL VOLUME 76.7 fl (80-96); MEAN PLT VOLUME 8.2 fl (7.5-11.1); MONO % 9.7 % (3.8-10.2); NEUT % 68.6 % (42.8-82.8); PLATELET COUNT 240 K/MM3 (134-434); RBC 3.69 M/mm3 (3.60-5.2); RDW 21.6 % (11.6-15.6); WHITE BLOOD COUNT 8.2 K/mm3 (4.0-10.0)
[2019-02-16] MEDS: FUROSEMIDE 40 MG/4 ML INJECTABLE VIAL IVPB SCH ×2 (06:58→15:08)
[2019-02-16 07:14] LABS: ALBUMIN 2.9 g/dl (3.4-5.0); BILIRUBIN,TOTAL 1.7 mg/dL (0.2-1); BLOOD UREA NITROGEN 29.8 mg/dL (7-18); CALCIUM 8.9 mg/dL (8.5-10.1); CREATININE 1.3 mg/dL (0.55-1.3); POTASSIUM 3.5 mmol/L (3.5-5.1); TOT PROT 6.2 g/dl (6.4-8.2)
[2019-02-16 07:21] LABS: INR 1.89 (0.83-1.09); PROTHROMBIN TIME (PATIENT) 22.5 SEC (9.7-13.0)
[2019-02-16 07:24] LABS: ACTIVATED PTT 38.6 SECONDS (25.2-36.5)
--- NOTE | 2019-02-16 07:27 | PN ---
Physical Exam: SUBJECTIVE: Patient seen and examined feeling better , breathing better , good urine out put , LE edema improving, denies cp, sob, cough. OBJECTIVE: Vital Signs Period Temp Pulse Resp BP Sys/[place]k Pulse Ox Last 24 Hr 97.9 F-98.5 F 87-94 16-20 131-150/62-102 96-99 GENERAL: Awake, alert, and fully oriented, in no acute distress. HEAD: Normal with no signs of trauma. EYES: Pupils equal, round and reactive to light, extraocular movements intact, EARS, NOSE, THROAT: Ears normal, nares patent, oropharynx clear without exudates. Moist mucous membranes. NECK: , supple LUNGS: decrease breath sounds at the bases , bibasilar chrackles worse on the right HEART: Regular rate and rhythm, normal S1 and S2 without murmur, rub or gallop. ABDOMEN: obese Soft, nontender, not distended, normoactive bowel sounds, LOWER EXTREMITIES: 2+ pulses, warm, well-perfused. No calf tenderness. +2 peripheral edema. right LE puple 1x1 cm NEUROLOGICAL: no focAL Deficit . Normal speech. PSYCHIATRIC: Cooperative. Laboratory Results - last 24 hr 02/15/19 02/15/19 02/15/19 13:15 13:15 13:15 WBC 6.9 RBC 4.11 Hgb 9.6 L Hct 31.8 L MCV 77.5 L MCH 23.5 L MCHC 30.3 L RDW 21.1 H Plt Count 251 D MPV 7.8 D Absolute Neuts (auto) 4.6 Neutrophils % 66.8 Lymphocytes % 20.2 D Monocytes % 10.4 H Eosinophils % 1.8 Basophils % 0.8 Nucleated RBC % 0 PT with INR INR PTT (Actin FS) Sodium 145 Potassium 4.1 Chloride 110 H Carbon Dioxide 27 Anion Gap 8 BUN 30.9 H Creatinine 1.4 H Est GFR (CKD-EPI)AfAm 38.51 Est GFR (CKD-EPI)NonAf 33.23 Random Glucose 86 Calcium 9.4 Phosphorus Magnesium 2.2 Total Bilirubin 1.6 H AST 32 ALT 23 Alkaline Phosphatase 207 H Creatine Kinase 189 Creatine Kinase Index 2.9 CK-MB (CK-2) 5.6 H Troponin I 0.02 B-Natriuretic Peptide Total Protein 6.8 Albumin 3.3 L Urine Color Urine Appearance Urine pH Ur Specific Energy Urine Protein Urine Glucose (UA) Urine Ketones Urine Blood Urine Nitrite Urine Bilirubin Urine Urobilinogen Ur Leukocyte Esterase 02/15/19 02/15/19 02/15/19 13:15 13:15 22:02 WBC RBC Hgb Hct MCV MCH MCHC RDW Plt Count MPV Absolute Neuts (auto) Neutrophils % Lymphocytes % Monocytes % Eosinophils % Basophils % Nucleated RBC % PT with INR 18.00 H INR 1.52 H PTT (Actin FS) Sodium Potassium Chloride Carbon Dioxide Anion Gap BUN Creatinine Est GFR (CKD-EPI)AfAm Est GFR (CKD-EPI)NonAf Random Glucose Calcium Phosphorus Magnesium Total Bilirubin AST ALT Alkaline Phosphatase Creatine Kinase 141 Creatine Kinase Index CK-MB (CK-2) Troponin I 0.03 B-Natriuretic Peptide 4365.1 H Total Protein Albumin Urine Color Urine Appearance Urine pH Ur Specific Energy Urine Protein Urine Glucose (UA) Urine Ketones Urine Blood Urine Nitrite Urine Bilirubin Urine Urobilinogen Ur Leukocyte Esterase 02/15/19 02/16/19 02/16/19 22:02 05:28 05:28 WBC 8.2 RBC 3.69 Hgb 8.9 L Hct 28.3 L MCV 76.7 L MCH 24.0 L MCHC 31.3 L RDW 21.6 H Plt Count 240 MPV 8.2 Absolute Neuts (auto) 5.6 Neutrophils % 68.6 Lymphocytes % 19.4 Monocytes % 9.7 Eosinophils % 1.8 Basophils % 0.5 Nucleated RBC % 0 PT with INR 22.50 H INR 1.89 H PTT (Actin FS) 38.6 H Sodium Potassium Chloride Carbon Dioxide Anion Gap BUN Creatinine Est GFR (CKD-EPI)AfAm Est GFR (CKD-EPI)NonAf Random Glucose Calcium Phosphorus Magnesium Total Bilirubin AST ALT Alkaline Phosphatase Creatine Kinase Creatine Kinase Index CK-MB (CK-2) Troponin I B-Natriuretic Peptide Total Protein Albumin Urine Color Yellow Urine Appearance Clear Urine pH 6.0 Ur Specific Energy 1.007 L Urine Protein Negative Urine Glucose (UA) Negative Urine Ketones Negative Urine Blood Negative Urine Nitrite Negative Urine Bilirubin Negative Urine Urobilinogen 0.2 Ur Leukocyte Esterase Negative 02/16/19 05:28 WBC RBC Hgb Hct MCV MCH MCHC RDW Plt Count MPV Absolute Neuts (auto) Neutrophils % Lymphocytes % Monocytes % Eosinophils % Basophils % Nucleated RBC % PT with INR INR PTT (Actin FS) Sodium 145 Potassium 3.5 Chloride 109 H Carbon Dioxide 29 Anion Gap 7 L BUN 29.8 H Creatinine 1.3 Est GFR (CKD-EPI)AfAm 42.12 Est GFR (CKD-EPI)NonAf 36.34 Random Glucose 94 Calcium 8.9 Phosphorus 4.0 Magnesium 2.0 Total Bilirubin 1.7 H AST 24 ALT 22 Alkaline Phosphatase 185 H Creatine Kinase Creatine Kinase Index CK-MB (CK-2) Troponin I B-Natriuretic Peptide Total Protein 6.2 L Albumin 2.9 L Urine Color Urine Appearance Urine pH Ur Specific Energy Urine Protein Urine Glucose (UA) Urine Ketones Urine Blood Urine Nitrite Urine Bilirubin Urine Urobilinogen Ur Leukocyte Esterase Active Medications Generic Name Dose Route Start Last Admin Trade Name Freq PRN Reason Stop Dose Admin Allopurinol 100 mg 02/16/19 10:00 Zyloprim - PO DAILY NOEMÍ Apixaban 2.5 mg 02/15/19 22:00 02/15/19 22:39 Eliquis - PO 2.5 mg BID NOEMÍ Administration Artificial Tears 1 drop 02/15/19 22:00 02/15/19 23:09 Artificial Tears OU 1 drop BID NOEMÍ Administration Atorvastatin Calcium 20 mg 02/15/19 22:00 02/15/19 22:39 Lipitor - PO 20 mg HS NOEMÍ Administration Cholecalciferol 400 unit 02/16/19 10:00 Vitamin D3 - PO DAILY [facility] Ferrous Gluconate 324 mg 02/16/19 10:00 Fergon - PO DAILY NOEMÍ Furosemide 80 mg 02/16/19 06:00 02/16/19 06:58 Lasix Injection - IVPB 80 mg BID@0600,1400 NOEMÍ Administration Magnesium Oxide 400 mg 02/15/19 22:00 02/15/19 22:39 Mag-Ox - PO 400 mg BID NOEMÍ Administration Metoprolol Succinate 150 mg 02/15/19 22:00 02/15/19 22:39 Toprol Xl - PO 150 mg BID NOEMÍ Administration Valsartan 40 mg 02/16/19 10:00 Diovan - PO DAILY [facility] CBC, BMP 02/16/19 05:28 02/16/19 05:28 ASSESSMENT/PLAN: Pt is an 88 yo F with PMHx of GI bleed, afib (on eliquis), HTN, HLD, venous insuff with chronic lymphedema, OA, CHF (diastolic), back pain was sent ot the hospital 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 admitted to tele for CHF exacerbation. #SOB secondary to acute exacerbaton of HFPEF * 2/2 non compliance with her diuretics she is on demadex 40 daily, she is taking 20 only and not every day * [id number] * consult cardiology started on lasix 80 IV BID * daily weight , I&O * Salt restriction * Water restriction * ECHO in June with EF 66 % * Pulm consult Dr Valeria Schumacher, * EKG- afib without clear JOJO/STD, QTC 476 , right axis deviation #R Pleural effusion * significant pleural effusion (mild R pleural effusion in past) * pulmonary consult * iv lasix * repeat CXR in AM if no improvement with diuretics might need pleurocentesis #afib (on eliquis) * Metoprolol 150 mg bid * valsartan 40 daily # Microcytic anemia H/H stable , no active bleeding , monitor daily , cont Ferrous #HTN * Metoprolol 150 BID ,Valsartan 40 Daily #HLD * cont Atorvastatain 20 H #Avascular necrosis of head of femur * Not on glucocorticoids, no fractures, follow pleural effusion (r/o background malignancy) * Cont statins * Cont anticoagulation * For outpt ortho follow up #venous insuff with chronic lymphedema, * No evidence of ulcers, or inflammation * cont Diuresis * leg elevation #Hx of GI bleed * Has been stable on Eliquis * Monitor H/H #FEN * Restrict salt <2g/day, Fluid <1L/day * Monitor lytes, replete as needed * Sodium controlled diet #PPx * On eliquis #Dispo * Tele Visit type - Emergency Visit Emergency Visit: Yes ED Registration Date: 02/15/19 Care time: The patient presented to the Emergency Department on the above date and was hospitalized for further evaluation of their emergent condition. - New Patient This patient is new to me today: No - Critical Care Critical Care patient: No ATTENDING PHYSICIAN STATEMENT I saw and evaluated the patient. I reviewed the resident's note and discussed the case with the resident. I agree with the resident's findings and plan as documented. SUBJECTIVE: OBJECTIVE: ASSESSMENT AND PLAN:
[2019-02-16] MEDS: FERROUS GLUCONATE 324 MG TAB (FP) PO SCH (10:18)
--- NOTE | 2019-02-16 10:39 | PN ---
Teaching Attending Note Name of Resident: Andrey Garland ATTENDING PHYSICIAN STATEMENT I saw and evaluated the patient. I reviewed the resident's note and discussed the case with the resident. I agree with the resident's findings and plan as documented with exceptions below. SUBJECTIVE: Patient seen and examined. Breathing and leg swelling improved, urinating well, no new complaints. OBJECTIVE: Vital Signs Period Temp Pulse Resp BP Sys/Polk Pulse Ox Last 24 Hr 97.3 F-98.5 F 87-94 16-20 128-150/62-102 96-99 Intake & Output 02/13/19 02/14/19 02/15/19 02/16/19 23:59 23:59 23:59 23:59 Intake Total 50 Balance 50 Weight 205 lb 3.2 oz General: sitting in bed, able to talk in full sentences and no use of accessory muscles of respiration today neck: improved neck vein distension, pos JVD Chest: bibasilar rales, R>L Abdomen:soft, obese, NT Extremities: improved pedal edema, softer today, unchanged blister right leg Home Medications Medication Instructions Recorded Cholecalciferol (Vitamin D3) 400 unit PO DAILY 02/25/18 [Vitamin D -] Apixaban [Eliquis -] 2.5 mg PO BID tablet 03/09/18 Magnesium Oxide 400 mg PO BID 07/12/18 Allopurinol [Zyloprim -] 100 mg PO DAILY 07/13/18 Ferrous Gluconate [Fergon -] 324 mg PO DAILY tab 07/29/18 Polyvinyl Alcohol [Artificial 1 drop OU BID drops 07/29/18 Tears] Torsemide [Demadex -] 40 mg PO DAILY tablet 07/29/18 Valsartan [Diovan] 40 mg PO DAILY tablet 07/29/18 Atorvastatin Ca [Lipitor] 20 mg PO HS 02/15/19 Metoprolol Succinate [Toprol Xl] 100 mg PO BID 02/15/19 Active Medications Allopurinol (Zyloprim -) 100 mg PO DAILY [facility] Apixaban (Eliquis -) 2.5 mg PO BID [facility] Last Admin: 02/15/19 22:39 Dose: 2.5 mg Artificial Tears (Artificial Tears) 1 drop OU BID NOEMÍ Last Admin: 02/15/19 23:09 Dose: 1 drop Atorvastatin Calcium (Lipitor -) 20 mg PO HS [facility] Last Admin: 02/15/19 22:39 Dose: 20 mg Cholecalciferol (Vitamin D3 -) 400 unit PO DAILY [facility] Ferrous Gluconate (Fergon -) 324 mg PO DAILY [facility] Furosemide (Lasix Injection -) 80 mg IVPB BID@0600,1400 [facility] Last Admin: 02/16/19 06:58 Dose: 80 mg Magnesium Oxide (Mag-Ox -) 400 mg PO BID [facility] Last Admin: 02/15/19 22:39 Dose: 400 mg Metoprolol Succinate (Toprol Xl -) 150 mg PO BID [facility] Last Admin: 02/15/19 22:39 Dose: 150 mg Valsartan (Diovan -) 40 mg PO DAILY [facility] Laboratory Results - last 24 hr 02/15/19 02/15/19 02/15/19 13:15 13:15 13:15 WBC 6.9 RBC 4.11 Hgb 9.6 L Hct 31.8 L MCV 77.5 L MCH 23.5 L MCHC 30.3 L RDW 21.1 H Plt Count 251 D MPV 7.8 D Absolute Neuts (auto) 4.6 Neutrophils % 66.8 Lymphocytes % 20.2 D Monocytes % 10.4 H Eosinophils % 1.8 Basophils % 0.8 Nucleated RBC % 0 PT with INR INR PTT (Actin FS) Sodium 145 Potassium 4.1 Chloride 110 H Carbon Dioxide 27 Anion Gap 8 BUN 30.9 H Creatinine 1.4 H Est GFR (CKD-EPI)AfAm 38.51 Est GFR (CKD-EPI)NonAf 33.23 Random Glucose 86 Calcium 9.4 Phosphorus Magnesium 2.2 Total Bilirubin 1.6 H AST 32 ALT 23 Alkaline Phosphatase 207 H Creatine Kinase 189 Creatine Kinase Index 2.9 CK-MB (CK-2) 5.6 H Troponin I 0.02 B-Natriuretic Peptide Total Protein 6.8 Albumin 3.3 L Urine Color Urine Appearance Urine pH Ur Specific [place] Urine Protein Urine Glucose (UA) Urine Ketones Urine Blood Urine Nitrite Urine Bilirubin Urine Urobilinogen Ur Leukocyte Esterase 02/15/19 02/15/19 02/15/19 13:15 13:15 22:02 WBC RBC Hgb Hct MCV MCH MCHC RDW Plt Count MPV Absolute Neuts (auto) Neutrophils % Lymphocytes % Monocytes % Eosinophils % Basophils % Nucleated RBC % PT with INR 18.00 H INR 1.52 H PTT (Actin FS) Sodium Potassium Chloride Carbon Dioxide Anion Gap BUN Creatinine Est GFR (CKD-EPI)AfAm Est GFR (CKD-EPI)NonAf Random Glucose Calcium Phosphorus Magnesium Total Bilirubin AST ALT Alkaline Phosphatase Creatine Kinase 141 Creatine Kinase Index CK-MB (CK-2) Troponin I 0.03 B-Natriuretic Peptide 4365.1 H Total Protein Albumin Urine Color Urine Appearance Urine pH Ur Specific [place] Urine Protein Urine Glucose (UA) Urine Ketones Urine Blood Urine Nitrite Urine Bilirubin Urine Urobilinogen Ur Leukocyte Esterase 02/15/19 02/16/19 02/16/19 22:02 05:28 05:28 WBC 8.2 RBC 3.69 Hgb 8.9 L Hct 28.3 L MCV 76.7 L MCH 24.0 L MCHC 31.3 L RDW 21.6 H Plt Count 240 MPV 8.2 Absolute Neuts (auto) 5.6 Neutrophils % 68.6 Lymphocytes % 19.4 Monocytes % 9.7 Eosinophils % 1.8 Basophils % 0.5 Nucleated RBC % 0 PT with INR 22.50 H INR 1.89 H PTT (Actin FS) 38.6 H Sodium Potassium Chloride Carbon Dioxide Anion Gap BUN Creatinine Est GFR (CKD-EPI)AfAm Est GFR (CKD-EPI)NonAf Random Glucose Calcium Phosphorus Magnesium Total Bilirubin AST ALT Alkaline Phosphatase Creatine Kinase Creatine Kinase Index CK-MB (CK-2) Troponin I B-Natriuretic Peptide Total Protein Albumin Urine Color Yellow Urine Appearance Clear Urine pH 6.0 Ur Specific [place] 1.007 L Urine Protein Negative Urine Glucose (UA) Negative Urine Ketones Negative Urine Blood Negative Urine Nitrite Negative Urine Bilirubin Negative Urine Urobilinogen 0.2 Ur Leukocyte Esterase Negative 02/16/19 05:28 WBC RBC Hgb Hct MCV MCH MCHC RDW Plt Count MPV Absolute Neuts (auto) Neutrophils % Lymphocytes % Monocytes % Eosinophils % Basophils % Nucleated RBC % PT with INR INR PTT (Actin FS) Sodium 145 Potassium 3.5 Chloride 109 H Carbon Dioxide 29 Anion Gap 7 L BUN 29.8 H Creatinine 1.3 Est GFR (CKD-EPI)AfAm 42.12 Est GFR (CKD-EPI)NonAf 36.34 Random Glucose 94 Calcium 8.9 Phosphorus 4.0 Magnesium 2.0 Total Bilirubin 1.7 H AST 24 ALT 22 Alkaline Phosphatase 185 H Creatine Kinase Creatine Kinase Index CK-MB (CK-2) Troponin I B-Natriuretic Peptide Total Protein 6.2 L Albumin 2.9 L Urine Color Urine Appearance Urine pH Ur Specific [place] Urine Protein Urine Glucose (UA) Urine Ketones Urine Blood Urine Nitrite Urine Bilirubin Urine Urobilinogen Ur Leukocyte Esterase ASSESSMENT AND PLAN: 88 yof with PMhx of diastolic HF, AFib on Eliquis, GI bleed, venous insufficiency with chronic lymphedema, HTN, HLD, last admitted with CHF/Right transudative pleural effusion in 06/2018 s/p chest tube/diuresis admitted with acute CHF exacerbation in the setting of medication+/- dietary non compliance. -Acute on chronic diastolic heart failure exacerbation, in the setting of medication+/- dietary non compliance -Right pleural effusion, likely from above -Mild Luigi, suspect cardiorenal, vs CKD stage II-III -Atrial fibrillation on eliquis -HTN -HLD -GI bleed -Venous insufficiency/Chronic lymphedema Plan: Volume status improved, continue lasix 80 mg IV bid, strict I/Os, daily weights Renal function improved. Cardiology input noted. Continue metoprolol/eliquis/statin/ARB/Mg Dispo pending clinical improvement. OOB and PT eval. Discussed with patient and nursing in detail, all questions answered.
[2019-02-16] MEDS ORDERED: PT OWN MED DRAWER 7, Y5N ONE ×2 (10:48→12:35)
[2019-02-16] MEDS: CHOLECALCIFEROL (VIT D3) 400 UNIT (10 MCG) TABLET PO SCH (10:52)
[2019-02-16] MEDS: MAGNESIUM OXIDE 400 MG TABLET (FP) PO SCH ×2 (10:52→21:06)
[2019-02-16] MEDS: APIXABAN 2.5 MG TABLET PO SCH ×2 (10:52→21:06)
[2019-02-16] MEDS: ALLOPURINOL 100 MG TABLET (FP) PO SCH (10:52)
[2019-02-16] MEDS: VALSARTAN 40 MG TABLET (FP) PO SCH (10:52)
[2019-02-16] MEDS: ARTIFICIAL TEARS (POLYVINYL ALCOHOL) OPTH DROPS OU SCH ×2 (10:55→21:06)
--- NOTE | 2019-02-16 11:54 | CON.CARD ---
Cardiology Consult (text) - Consultation Consultation Note: Consult Specialty:: cardio - History of Present Illness Chief Complaint: dyspnea History of Present Illness: 88 F with h/o afib, HTN, HTN, chronic diastolic HF here with edema, dyspnea on exertion. Sees me for cardio, evaluated in the office yesterday and sent to ER for diuresis. Feels better today after IV lasix. No chest pain, palps, dizziness. Still has dyspnea, edema a little bit improved. - Past Medical History [employer]: Yes: CVA, Other (h/o bifrontal craniotomies) Cardio/Vascular: Yes: AFIB, HTN, Hyperlipdemia, Other (non palpable pulses b/l feet) Gastrointestinal: Yes: GI Bleed Musculoskeletal: Yes: Other (tender hypertrophic nails x 10 with subungual debris, +inflammed nails beds, +distal seperation of nail from bed, +xerosis b/ l feet) Rheumatology: Yes: Other (b/l knee pain) Dermatology: Yes: Other ( Other (tender hypertrophic nails x 10 with subungual debris, +inflammed nails beds, +distal seperation of nail from bed, +xerosis b/ l feet)) - Past Surgical History Past Surgical History: Yes: Craniotomy - Alcohol/Substance Use Hx Alcohol Use: No - Smoking History Smoking history: Never smoked Have you smoked in the past 12 months: No Home Medications - Allergies Allergies/Adverse Reactions: Allergies Allergy/AdvReac Type Severity Reaction Status Date / Time No Known Allergies Allergy Verified 02/15/19 12:46 Home Medications Medication Instructions Recorded Cholecalciferol (Vitamin D3) 400 unit PO DAILY 02/25/18 [Vitamin D -] Apixaban [Eliquis -] 2.5 mg PO BID tablet 03/09/18 Magnesium Oxide 400 mg PO BID 07/12/18 Allopurinol [Zyloprim -] 100 mg PO DAILY 07/13/18 Ferrous Gluconate [Fergon -] 324 mg PO DAILY tab 07/29/18 Polyvinyl Alcohol [Artificial 1 drop OU BID drops 07/29/18 Tears] Torsemide [Demadex -] 40 mg PO DAILY tablet 07/29/18 Valsartan [Diovan] 40 mg PO DAILY tablet 07/29/18 Atorvastatin Ca [Lipitor] 20 mg PO HS 02/15/19 Metoprolol Succinate [Toprol Xl] 150 mg PO BID 02/15/19 Family Disease History - Family Disease History Family History: Denies (no known cmp) Review of Systems - Review of Systems Constitutional: denies: Chills, Fever Eyes: denies: Eye Pain HENT: denies: Nasal Congestion Neck: denies: Stiffness Cardiovascular: reports: Edema Respiratory: denies: Orthopnea, PND Gastrointestinal: denies: Diarrhea, Rectal Bleeding Genitourinary: denies: Burning, Hematuria Musculoskeletal: denies: Muscle Pain Integumentary: denies: Rash Neurological: denies: Numbness, Seizure, Syncope Endocrine: denies: Excessive Sweating Hematology/Lymphatic: denies: Excessive Bleeding Vital Signs: Vital Signs Period Temp Pulse Resp BP Sys/Polk Pulse Ox Last 24 Hr 97.3 F-98.5 F 87-94 16-20 128-150/62-102 96-99 Constitutional: Yes: Well Nourished, No Distress Eyes: No: Sclera Icterus HENT: No: Nasal Congestion Neck: No: Decreased ROM Respiratory: Yes: Diminished (R lower half), rales fern Gastrointestinal: Yes: Normal Bowel Sounds. No: Distention, Hepatomegaly, Palpable Mass, Tenderness Cardiovascular: Yes: Pulse Irregular JVD: Yes Heart Sounds: Yes: S1, S2. No: Gallop Murmur: No: Systolic Murmur, Diastolic Murmur Extremities: No: Cold, Cyanosis Edema: 3+ pitting edema fern with weeping Integumentary: No: Jaundice Neurological: Yes: Alert, Oriented (x3) Psychiatric: No: Agitated Laboratory Last Values WBC 8.2 K/mm3 (4.0-10.0) 02/16/19 05:28 RBC 3.69 M/mm3 (3.60-5.2) 02/16/19 05:28 Hgb 8.9 GM/dL (10.7-15.3) L 02/16/19 05:28 Hct 28.3 % (32.4-45.2) L 02/16/19 05:28 MCV 76.7 fl (80-96) L 02/16/19 05:28 MCH 24.0 pg (25.7-33.7) L 02/16/19 05:28 MCHC 31.3 g/dl (32.0-36.0) L 02/16/19 05:28 RDW 21.6 % (11.6-15.6) H 02/16/19 05:28 Plt Count 240 K/MM3 (134-434) 02/16/19 05:28 MPV 8.2 fl (7.5-11.1) 02/16/19 05:28 Absolute Neuts (auto) 5.6 K/mm3 (1.5-8.0) 02/16/19 05:28 Neutrophils % 68.6 % (42.8-82.8) 02/16/19 05:28 Lymphocytes % 19.4 % (8-40) 02/16/19 05:28 Monocytes % 9.7 % (3.8-10.2) 02/16/19 05:28 Eosinophils % 1.8 % (0-4.5) 02/16/19 05:28 Basophils % 0.5 % (0-2.0) 02/16/19 05:28 Nucleated RBC % 0 % (0-0) 02/16/19 05:28 PT with INR 22.50 SEC (9.7-13.0) H 02/16/19 05:28 INR 1.89 (0.83-1.09) H 02/16/19 05:28 PTT (Actin FS) 38.6 SECONDS (25.2-36.5) H 02/16/19 05:28 Sodium 145 mmol/L (136-145) 02/16/19 05:28 Potassium 3.5 mmol/L (3.5-5.1) 02/16/19 05:28 Chloride 109 mmol/L (98-107) H 02/16/19 05:28 Carbon Dioxide 29 mmol/L (21-32) 02/16/19 05:28 Anion Gap 7 MMOL/L (8-16) L 02/16/19 05:28 BUN 29.8 mg/dL (7-18) H 02/16/19 05:28 Creatinine 1.3 mg/dL (0.55-1.3) 02/16/19 05:28 Est GFR (CKD-EPI)AfAm 42.12 02/16/19 05:28 Est GFR (CKD-EPI)NonAf 36.34 02/16/19 05:28 Random Glucose 94 mg/dL (74-106) 02/16/19 05:28 Calcium 8.9 mg/dL (8.5-10.1) 02/16/19 05:28 Phosphorus 4.0 mg/dL (2.5-4.9) 02/16/19 05:28 Magnesium 2.0 mg/dL (1.8-2.4) 02/16/19 05:28 Total Bilirubin 1.7 mg/dL (0.2-1) H 02/16/19 05:28 AST 24 U/L (15-37) 02/16/19 05:28 ALT 22 U/L (13-61) 02/16/19 05:28 Alkaline Phosphatase 185 U/L (45-117) H 02/16/19 05:28 Creatine Kinase 141 U/L (26-192) 02/15/19 22:02 Creatine Kinase Index 2.9 % (0.0-5.0) 02/15/19 13:15 CK-MB (CK-2) 5.6 ng/mL (0.5-3.6) H 02/15/19 13:15 Troponin I 0.03 ng/ml (0.00-0.05) 02/15/19 22:02 B-Natriuretic Peptide 4365.1 pg/ml (5-450) H 02/15/19 13:15 Total Protein 6.2 g/dl (6.4-8.2) L 02/16/19 05:28 Albumin 2.9 g/dl (3.4-5.0) L 02/16/19 05:28 Urine Color Yellow 02/15/19 22:02 Urine Appearance Clear 02/15/19 22:02 Urine pH 6.0 (5.0-8.0) 02/15/19 22:02 Ur Specific [place] 1.007 (1.010-1.035) L 02/15/19 22:02 Urine Protein Negative (NEGATIVE) 02/15/19 22:02 Urine Glucose (UA) Negative (NEGATIVE) 02/15/19 22:02 Urine Ketones Negative (NEGATIVE) 02/15/19 22:02 Urine Blood Negative (NEGATIVE) 02/15/19 22:02 Urine Nitrite Negative (NEGATIVE) 02/15/19 22:02 Urine Bilirubin Negative (NEGATIVE) 02/15/19 22:02 Urine Urobilinogen 0.2 mg/dL (0.2-1.0) 02/15/19 22:02 Ur Leukocyte Esterase Negative (NEGATIVE) 02/15/19 22:02 Assessment/Plan ECG: afib, PVC. baseline wander artifact. NSTWAs diffusely--unchanged vs prior CT chest: large R effusion, small L. no pulm edema described Echo 02/14: ([facility]): LV not well seen. RV ??. mild (AV not well seen). mod-sev MR and TR. RVSP 40-50. Echo 06/2017: nl lv fn. mod rve. rv sys function moderately reduced. mild MR, mod TR. sev phtn. trivial pericardial effusion. Echo 2016: low-nl EF 50-55% (beat to beat variability). mod RV dilation, borderline depressed RV fxn. 1+ /MR, Mod TR, mod pHTN (avg TR 42 mmHg), Cath 2006: LVEDP 18, EF 60%. pRCA mild, pLAD mild, mLAD 50-60%, pLCx mild, OM1 mild. CT head: R occipital lobe infarct, likely old Carotid sono 2018: rt common carotid with mod plaque 50-69%. moderate plaque on left with borderline stenosis. 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, R pleural effusion - not taking torsemide as prescribed at home - was prescribed 40 mg daily and taking 20 mg most days - continue lasix 80 mg IV BID - monitor R effusion - if not responding to diuretics may need thoracentesis - monitor cr, lytes, daily weights - cont home metoprolol, valsartan (was on olmesartan due to recall of valsartan) Afib - stable, continue metoprolol , eliquis CKD: -baseline creat 1.0-1.5 -renal fxn stable here HTN: - stable, cont home meds carotid atherosclerosis, - previously declined further imaging w/u as outpt - cont statin
--- NOTE | 2019-02-16 12:16 | PN ---
Progress Note (short form) - Note Progress Note: PULMONARY CONSULTATION DICTATED 02/16/19 IMP DYSPNEA ACUTE ON CHRONIC CHF BILATERAL PLEURAL EFFUSIONS SECONDARY TO CHF PULMONARY HTN AFIB LOWER EXT EDEMA H/O CVA H/O BILATERAL FRONTAL CRANIOTOMIES H/O GI BLEED ANEMIA ACUTE ON CHRONIC KIDNEY DISEASE PLAN LASIX ELIQUIS SUPPLEMENTAL O2 DAILY WTS F/U CHEST X-RAYS MONITOR LYTES, 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 H+H DR AJ Problem List - Problems (1) Acquired lymphedema of leg Code(s): I89.0 - LYMPHEDEMA, NOT ELSEWHERE CLASSIFIED (2) Pleural effusion Code(s): J90 - PLEURAL EFFUSION, NOT ELSEWHERE CLASSIFIED (3) Shortness of breath Code(s): R06.02 - SHORTNESS OF BREATH (4) Weakness Code(s): R53.1 - WEAKNESS (5) Diastolic CHF, acute on chronic Code(s): I50.33 - ACUTE ON CHRONIC DIASTOLIC (CONGESTIVE) HEART FAILURE (6) Blepharitis of both eyes Code(s): H01.003 - UNSPECIFIED BLEPHARITIS RIGHT EYE, UNSPECIFIED EYELID; H01.006 - UNSPECIFIED BLEPHARITIS LEFT EYE, UNSPECIFIED EYELID Qualifiers: Blepharitis type: squamous Eyelid: both upper and lower Qualified Code(s) : H01.02A - Squamous blepharitis right eye, upper and lower eyelids; H01.02B - Squamous blepharitis left eye, upper and lower eyelids (7) History of GI bleed Code(s): Z87.19 - PERSONAL HISTORY OF OTHER DISEASES OF THE DIGESTIVE SYSTEM (8) Pulmonary HTN Code(s): I27.20 - PULMONARY HYPERTENSION, UNSPECIFIED (9) Atrial fibrillation Code(s): I48.91 - UNSPECIFIED ATRIAL FIBRILLATION Qualifiers: Atrial fibrillation type: paroxysmal Qualified Code(s): I48.0 - Paroxysmal atrial fibrillation (10) HTN (hypertension) Code(s): I10 - ESSENTIAL (PRIMARY) HYPERTENSION (11) Hyperlipidemia Code(s): E78.5 - HYPERLIPIDEMIA, UNSPECIFIED
--- NOTE | 2019-02-16 14:59 | CONS ---
PULMONARY CONSULTATION DATE OF CONSULTATION: 02/16/2019 REFERRING PHYSICIAN: Lan Reid MD HISTORY: Patient is an 88-year-old white female with extensive past medical history, which includes congestive heart failure, bilateral lower extremity lymphedema, diastolic heart failure, hypertension, hyperlipidemia, history of CVA, chronic kidney disease, hypertension, pulmonary hypertension, and history of bilateral frontal craniotomies. Admitted to [facility] with increasing shortness of breath, lower extremity edema for approximately 3 days. Patient went to see Dr. Cortez on day of admission. At that time, she complained of a 3-day history of increasing lower extremity edema, shortness of breath with exertion, and increasing dyspnea on exertion at which time she was advised to go to the emergency room. Patient was admitted and felt to be in acute congestive heart failure. She was started on IV Lasix and transferred up to the medical telemetry unit for further management. Patient denies any chest pain, nausea, vomiting, diaphoresis. Denies any hemoptysis. She denies any history of tobacco use. There is no history of occupational exposure to chemicals or fumes. PAST MEDICAL HISTORY: Again includes atrial fibrillation, hypertension, hyperlipidemia, chronic diastolic heart failure, pulmonary hypertension, history of CVA, history of bilateral frontal craniotomies, hyperlipidemia. MEDICATIONS: Include Diovan, Eliquis 2.5 b.i.d., Zyloprim 100 mg daily, Toprol XL 150 mg p.o. b.i.d., Artificial Tears, Lipitor, Fergon, and Lasix 80 mg IV piggyback b.i.d., vitamin D3 at 400 units daily. REVIEW OF SYSTEMS: Positive orthopnea. Positive dyspnea. Positive weakness. No chest pain, no palpitations. Positive increasing lower extremity edema. PHYSICAL EXAMINATION: General: The patient is an elderly white female well developed, well nourished, awake, alert currently in no acute distress sitting out of bed in chair. Vital Signs: She is currently afebrile. Blood pressure is 146/75, respiratory rate is 20, O2 saturation is 97% on room air. HEENT: Normocephalic, atraumatic. Neck: Supple. Heart: Irregularly irregular, S1, S2. Chest: Few bibasilar crackles with mildly diminished breath sounds to right base. Abdomen: Soft. Bowel sounds are positive. Extremities: Bilateral lower extremity edema and erythema. LABORATORIES: WBC 8.2, hemoglobin 8.9, hematocrit 28.3 with a platelet count of 240,000. INR 1.89, BUN 29, creatinine 1.3. BNP is 4365. Recent echocardiogram on February 14: LV not well seen. Mild . Moderate-to- severe tricuspid regurgitation. RSVP of 40-50. Chest x-ray reveals right pleural effusion, compressive atelectasis, mild pulmonary vascular congestion. Previous chest CT reveals a large right pleural effusion with anteromedial, lateral loculation, atelectasis right middle and lower lobes. IMPRESSION: 1. Dyspnea secondary to acute on chronic congestive heart failure. 2. Bilateral pleural effusion, chronic likely secondary to congestive heart failure. 3. Pulmonary hypertension. 4. Atrial fibrillation. 5. Bilateral lower extremity edema, lymphedema. 6. History of cerebrovascular accident. 7. History of bilateral frontal craniotomies. 8. History of gastrointestinal bleed. 9. Anemia. 10. Acute on chronic kidney disease. PLAN: We will continue Lasix, Eliquis. Supplemental O2. Daily weights. Obtain follow up chest x-ray. Also CT scan of the chest. Monitor electrolytes, renal function. Monitor hemoglobin and hematocrit. SOHAM AJ M.D. [id number] MTDD
--- NOTE | 2019-02-16 16:17 | EKG ---
Test Reason : Blood Pressure : / mmHG Vent. Rate : 082 BPM Atrial Rate : 062 BPM P-R Int : 000 ms QRS Dur : 096 ms QT Int : 408 ms P-R-T Axes : 000 111 114 degrees QTc Int : 476 ms ATRIAL FIBRILLATION RIGHT AXIS DEVIATION CANNOT RULE OUT ANTERIOR INFARCT , AGE UNDETERMINED ABNORMAL ECG WHEN COMPARED WITH ECG OF 22-JUL-2018 09:28, NO SIGNIFICANT CHANGE WAS FOUND Confirmed by MD LOLITA, ART ([id number]) on 02/16/2019 4:16:51 PM Referred By: Confirmed By:ART MCHUGH MD
[2019-02-16] MEDS: ATORVASTATIN CA 10 MG TABLET (FP) PO SCH (21:12)
[2019-02-17] MEDS: FUROSEMIDE 40 MG/4 ML INJECTABLE VIAL IVPB SCH ×2 (06:01→14:39)
--- NOTE | 2019-02-17 07:49 | PN ---
Physical Exam: SUBJECTIVE: Patient seen and examined feeling better , breathing better , good urine out put , LE edema improving, denies cp, sob, cough. OBJECTIVE: Vital Signs Period Temp Pulse Resp BP Sys/Polk Pulse Ox Last 24 Hr 97.3 F-98.5 F 71-92 19-20 114-157/73-80 97-97 GENERAL: Awake, alert, and fully oriented, in no acute distress. HEAD: Normal with no signs of trauma. EYES: Pupils equal, round and reactive to light, extraocular movements intact, EARS, NOSE, THROAT: Ears normal, nares patent, oropharynx clear without exudates. Moist mucous membranes. NECK: , supple LUNGS: decrease breath sounds at the bases , bibasilar chrackles worse on the right HEART: Regular rate and rhythm, normal S1 and S2 without murmur, rub or gallop. ABDOMEN: obese Soft, nontender, not distended, normoactive bowel sounds, LOWER EXTREMITIES: 2+ pulses, warm, well-perfused. No calf tenderness. +2 peripheral edema. right LE puple 1x1 cm NEUROLOGICAL: no focAL Deficit . Normal speech. PSYCHIATRIC: Cooperative. Active Medications Generic Name Dose Route Start Last Admin Trade Name Brandonq PRN Reason Stop Dose Admin Allopurinol 100 mg 02/16/19 10:00 02/16/19 10:52 Zyloprim - PO 100 mg DAILY NOEMÍ Administration Apixaban 2.5 mg 02/15/19 22:00 02/16/19 21:06 Eliquis - PO 2.5 mg BID NOEMÍ Administration Artificial Tears 1 drop 02/15/19 22:00 02/16/19 21:06 Artificial Tears OU 1 drop BID NOEMÍ Administration Atorvastatin Calcium 20 mg 02/15/19 22:00 02/16/19 21:12 Lipitor - PO 20 mg HS NOEMÍ Administration Cholecalciferol 400 unit 02/16/19 10:00 02/16/19 10:52 Vitamin D3 - PO 400 unit DAILY NOEMÍ Administration Ferrous Gluconate 324 mg 02/16/19 10:00 02/16/19 10:18 Fergon - PO 324 mg DAILY NOEMÍ Administration Furosemide 80 mg 02/16/19 06:00 02/17/19 06:01 Lasix Injection - IVPB 80 mg BID@0600,1400 NOEMÍ Administration Magnesium Oxide 400 mg 02/15/19 22:00 02/16/19 21:06 Mag-Ox - PO 400 mg BID NOEMÍ Administration Metoprolol Succinate 150 mg 02/15/19 22:00 02/16/19 21:05 Toprol Xl - PO 150 mg BID NOEMÍ Administration Valsartan 40 mg 02/16/19 10:00 02/16/19 10:52 Diovan - PO 40 mg DAILY ONEMÍ Administration CBC, BMP 02/17/19 06:51 02/17/19 06:51 Intake & Output 02/14/19 02/15/19 02/16/19 02/17/19 23:59 23:59 23:59 23:59 Intake Total 350 350 Balance 350 350 Weight 93.077 kg 88.541 kg ASSESSMENT/PLAN: Pt is an 88 yo F with PMHx of GI bleed, afib (on eliquis), HTN, HLD, venous insuff with chronic lymphedema, OA, CHF (diastolic), back pain was sent ot the hospital By her drill hand Dr Dana 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 admitted to tele for CHF exacerbation. #SOB secondary to acute exacerbaton of HFPEF 2/2 non compliance with her diuretics she is on demadex 40 daily, she is taking 20 only and not every day [id number] consult cardiology started on lasix 80 IV BID daily weight , I&O Salt restriction Water restriction ECHO in June with EF 66 % Pulm consult Dr Valeria Schumacher, EKG- afib without clear JOJO/STD, QTC 476 , right axis deviation #R Pleural effusion significant pleural effusion (mild R pleural effusion in past) pulmonary consult iv lasix repeat CXR in AM if no improvement with diuretics might need pleurocentesis #afib (on eliquis) Metoprolol 150 mg bid valsartan 40 daily # Microcytic anemia H/H stable , no active bleeding , monitor daily , cont Ferrous #HTN Metoprolol 150 BID ,Valsartan 40 Daily #HLD cont Atorvastatain 20 H #Avascular necrosis of head of femur Not on glucocorticoids, no fractures, follow pleural effusion (r/o background malignancy) Cont statins Cont anticoagulation For outpt ortho follow up #venous insuff with chronic lymphedema, No evidence of ulcers, or inflammation cont Diuresis leg elevation #Hx of GI bleed Has been stable on Eliquis Monitor H/H #FEN Restrict salt <2g/day, Fluid <1L/day Monitor lytes, replete as needed Sodium controlled diet #PPx On eliquis #Dispo Tele Visit type - Emergency Visit Emergency Visit: Yes ED Registration Date: 02/15/19 Care time: The patient presented to the Emergency Department on the above date and was hospitalized for further evaluation of their emergent condition. - New Patient This patient is new to me today: No - Critical Care Critical Care patient: No - Discharge Referral Referred to [facility] Med P.C[facility] No ATTENDING PHYSICIAN STATEMENT I saw and evaluated the patient. I reviewed the resident's note and discussed the case with the resident. I agree with the resident's findings and plan as documented. SUBJECTIVE: OBJECTIVE: ASSESSMENT AND PLAN:
[2019-02-17 08:01] LABS: BASO % 0.6 % (0-2.0); EOS % 3.2 % (0-4.5); HEMATOCRIT 29.5 % (32.4-45.2); MCH 23.7 pg (25.7-33.7); MCHC 30.4 g/dl (32.0-36.0); MEAN CELL VOLUME 77.7 fl (80-96); MEAN PLT VOLUME 8.3 fl (7.5-11.1); MONO % 11.2 % (3.8-10.2); PLATELET COUNT 228 K/MM3 (134-434); RDW 21.1 % (11.6-15.6); WHITE BLOOD COUNT 6.6 K/mm3 (4.0-10.0)
[2019-02-17 08:22] LABS: ALBUMIN 2.9 g/dl (3.4-5.0); BILIRUBIN,TOTAL 1.4 mg/dL (0.2-1); CALCIUM 8.9 mg/dL (8.5-10.1); CREATININE 1.2 mg/dL (0.55-1.3); POTASSIUM 3.2 mmol/L (3.5-5.1); TOT PROT 6.1 g/dl (6.4-8.2)
[2019-02-17] MEDS ORDERED: ACETAMINOPHEN 325 MG TABLET (FP) ONE (09:32)
[2019-02-17] MEDS: VALSARTAN 40 MG TABLET (FP) PO SCH (10:02)
[2019-02-17] MEDS: MAGNESIUM OXIDE 400 MG TABLET (FP) PO SCH ×2 (10:02→21:41)
[2019-02-17] MEDS: FERROUS GLUCONATE 324 MG TAB (FP) PO SCH (10:02)
[2019-02-17] MEDS: ALLOPURINOL 100 MG TABLET (FP) PO SCH (10:02)
[2019-02-17] MEDS: APIXABAN 2.5 MG TABLET PO SCH ×2 (10:02→21:41)
[2019-02-17] MEDS: CHOLECALCIFEROL (VIT D3) 400 UNIT (10 MCG) TABLET PO SCH (10:02)
[2019-02-17] MEDS: ARTIFICIAL TEARS (POLYVINYL ALCOHOL) OPTH DROPS OU SCH ×2 (10:03→21:42)
[2019-02-17] MEDS ORDERED: POTASSIUM CHLORIDE TABS 20 MEQ TABLET.ER (FP) PO ONE ×2 (10:44→13:00)
--- NOTE | 2019-02-17 10:51 | PN ---
Teaching Attending Note Name of Resident: Andrey Garland ATTENDING PHYSICIAN STATEMENT I saw and evaluated the patient. I reviewed the resident's note and discussed the case with the resident. I agree with the resident's findings and plan as documented with exceptions below. SUBJECTIVE: Patient seen and examined. Breathing and swelling markedly improved, no new complaints. OBJECTIVE: Vital Signs Period Temp Pulse Resp BP Sys/Polk Pulse Ox Last 24 Hr 98 F-98.5 F 71-91 19-20 114-157/73-80 97-97 Intake & Output 02/14/19 02/15/19 02/16/19 02/17/19 23:59 23:59 23:59 23:59 Intake Total 350 100 Balance 350 100 Weight 205 lb 3.2 oz 195 lb 3.2 oz General: sitting in chair, mild tachypneic on conversation, markedly improved neck: improved neck vein distension, pos JVD Chest:decreased breath sounds right base, left basilar rales, improved air entry overall Abdomen:soft, obese, NT Extremities: markedly improved pedal edema, softer today, unchanged blister right leg Home Medications Medication Instructions Recorded Cholecalciferol (Vitamin D3) 400 unit PO DAILY 02/25/18 [Vitamin D -] Apixaban [Eliquis -] 2.5 mg PO BID tablet 03/09/18 Magnesium Oxide 400 mg PO BID 07/12/18 Allopurinol [Zyloprim -] 100 mg PO DAILY 07/13/18 Ferrous Gluconate [Fergon -] 324 mg PO DAILY tab 07/29/18 Polyvinyl Alcohol [Artificial 1 drop OU BID drops 07/29/18 Tears] Torsemide [Demadex -] 40 mg PO DAILY tablet 07/29/18 Valsartan [Diovan] 40 mg PO DAILY tablet 07/29/18 Atorvastatin Ca [Lipitor] 20 mg PO HS 02/15/19 Metoprolol Succinate [Toprol Xl] 150 mg PO BID 02/15/19 Active Medications Allopurinol (Zyloprim -) 100 mg PO DAILY [facility] Last Admin: 02/17/19 10:02 Dose: 100 mg Apixaban (Eliquis -) 2.5 mg PO BID [facility] Last Admin: 02/17/19 10:02 Dose: 2.5 mg Artificial Tears (Artificial Tears) 1 drop OU BID [facility] Last Admin: 02/17/19 10:03 Dose: 1 drop Atorvastatin Calcium (Lipitor -) 20 mg PO HS [facility] Last Admin: 02/16/19 21:12 Dose: 20 mg Cholecalciferol (Vitamin D3 -) 400 unit PO DAILY [facility] Last Admin: 02/17/19 10:02 Dose: 400 unit Ferrous Gluconate (Fergon -) 324 mg PO DAILY [facility] Last Admin: 02/17/19 10:02 Dose: 324 mg Furosemide (Lasix Injection -) 80 mg IVPB BID@0600,1400 [facility] Last Admin: 02/17/19 06:01 Dose: 80 mg Magnesium Oxide (Mag-Ox -) 400 mg PO BID [facility] Last Admin: 02/17/19 10:02 Dose: 400 mg Metoprolol Succinate (Toprol Xl -) 150 mg PO BID [facility] Last Admin: 02/17/19 10:03 Dose: 150 mg Potassium Chloride (K-Dur -) 40 meq PO ONCE ONE Stop: 02/17/19 10:45 Potassium Chloride (K-Dur -) 40 meq PO ONCE ONE Stop: 02/17/19 13:01 Valsartan (Diovan -) 40 mg PO DAILY [facility] Last Admin: 02/17/19 10:02 Dose: 40 mg Laboratory Results - last 24 hr 02/17/19 02/17/19 06:51 06:51 WBC 6.6 RBC 3.80 Hgb 9.0 L Hct 29.5 L MCV 77.7 L MCH 23.7 L MCHC 30.4 L RDW 21.1 H Plt Count 228 MPV 8.3 Absolute Neuts (auto) 4.3 Neutrophils % 65.0 Lymphocytes % 20.0 Monocytes % 11.2 H Eosinophils % 3.2 Basophils % 0.6 Nucleated RBC % 0 Sodium 145 Potassium 3.2 L Chloride 104 Carbon Dioxide 33 H Anion Gap 8 BUN 26.0 H Creatinine 1.2 Est GFR (CKD-EPI)AfAm 46.40 Est GFR (CKD-EPI)NonAf 40.04 Random Glucose 85 Calcium 8.9 Total Bilirubin 1.4 H AST 24 ALT 22 Alkaline Phosphatase 194 H Total Protein 6.1 L Albumin [address] chest images reviewed telemetry: Afib ASSESSMENT AND PLAN: 88 yof with PMhx of diastolic HF, AFib on Eliquis, GI bleed, venous insufficiency with chronic lymphedema, HTN, HLD, last admitted with CHF/Right transudative pleural effusion in 06/2018 s/p chest tube/diuresis admitted with acute CHF exacerbation in the setting of medication+/- dietary non compliance. -Acute on chronic diastolic heart failure exacerbation, in the setting of medication+/- dietary non compliance -Right pleural effusion, likely from above -Mild Luigi, suspect cardiorenal, vs CKD stage II-III -Hypokalemia -Atrial fibrillation on eliquis -HTN -HLD -GI bleed -Chronic Microcytic anemia -Venous insufficiency/Chronic lymphedema Plan: Volume status continues to improve, continue lasix 80 mg IV bid, strict I/Os, daily weights Renal function improved. Cardiology/Pulmonary input noted. CT chest images reviewed, await read. Continue diuresis for now. Replete K. Check iron panel. Continue metoprolol/eliquis/statin/ARB/Mg Dietary consult, CHF education. PT deep, OOB. Will need home oxygen needs assessment prior to dc. Dispo in 48-72 hours if continues to improve. Discussed with patient and nursing in detail, all questions answered.
--- NOTE | 2019-02-17 11:40 | PN ---
Progress Note, Physician History of Present Illness: pulmonary alert,feeling better,dyspnea improving,-cp - Current Medication List Current Medications: Active Medications Allopurinol (Zyloprim -) 100 mg PO DAILY [facility] Last Admin: 02/17/19 10:02 Dose: 100 mg Apixaban (Eliquis -) 2.5 mg PO BID [facility] Last Admin: 02/17/19 10:02 Dose: 2.5 mg Artificial Tears (Artificial Tears) 1 drop OU BID [facility] Last Admin: 02/17/19 10:03 Dose: 1 drop Atorvastatin Calcium (Lipitor -) 20 mg PO HS [facility] Last Admin: 02/16/19 21:12 Dose: 20 mg Cholecalciferol (Vitamin D3 -) 400 unit PO DAILY [facility] Last Admin: 02/17/19 10:02 Dose: 400 unit Docusate Sodium (Colace -) 100 mg PO TID [facility] Ferrous Gluconate (Fergon -) 324 mg PO DAILY [facility] Last Admin: 02/17/19 10:02 Dose: 324 mg Furosemide (Lasix Injection -) 80 mg IVPB BID@0600,1400 [facility] Last Admin: 02/17/19 06:01 Dose: 80 mg Magnesium Oxide (Mag-Ox -) 400 mg PO BID [facility] Last Admin: 02/17/19 10:02 Dose: 400 mg Metoprolol Succinate (Toprol Xl -) 150 mg PO BID [facility] Last Admin: 02/17/19 10:03 Dose: 150 mg Potassium Chloride (K-Dur -) 40 meq PO ONCE ONE Stop: 02/17/19 13:01 Valsartan (Diovan -) 40 mg PO DAILY [facility] Last Admin: 02/17/19 10:02 Dose: 40 mg - Objective Vital Signs: Vital Signs Temperature 98 F 02/17/19 04:51 Pulse Rate 71 02/17/19 04:51 Respiratory Rate 19 02/17/19 04:51 Blood Pressure 132/80 02/17/19 04:51 O2 Sat by Pulse Oximetry (%) 97 02/17/19 02:00 Constitutional: Yes: Well Nourished, Calm Eyes: Yes: WNL HENT: Yes: WNL Neck: Yes: WNL Cardiovascular: Yes: Pulse Irregular, S1, S2 Respiratory: Yes: Rales (bibasilar rales) Gastrointestinal: Yes: Normal Bowel Sounds, Soft Extremities: Yes: WNL Edema: Yes Labs: CBC, BMP 08/21/19 06:51 02/17/19 06:51 INR, PTT INR 1.89 (0.83-1.09) H 02/16/19 05:28 - ....Imaging Cat Scan: Image Reviewed Problem List - Problems (1) Acquired lymphedema of leg Code(s): I89.0 - LYMPHEDEMA, NOT ELSEWHERE CLASSIFIED (2) Pleural effusion Code(s): J90 - PLEURAL EFFUSION, NOT ELSEWHERE CLASSIFIED (3) Shortness of breath Code(s): R06.02 - SHORTNESS OF BREATH (4) Weakness Code(s): R53.1 - WEAKNESS (5) Diastolic CHF, acute on chronic Code(s): I50.33 - ACUTE ON CHRONIC DIASTOLIC (CONGESTIVE) HEART FAILURE (6) Blepharitis of both eyes Code(s): H01.003 - UNSPECIFIED BLEPHARITIS RIGHT EYE, UNSPECIFIED EYELID; H01.006 - UNSPECIFIED BLEPHARITIS LEFT EYE, UNSPECIFIED EYELID Qualifiers: Blepharitis type: squamous Eyelid: both upper and lower Qualified Code(s) : H01.021 - Squamous blepharitis right upper eyelid; H01.022 - Squamous blepharitis right lower eyelid; H01.022 - Squamous blepharitis right lower eyelid; H01.024 - Squamous blepharitis left upper eyelid; H01.024 - Squamous blepharitis left upper eyelid; H01.025 - Squamous blepharitis left lower eyelid ; H01.025 - Squamous blepharitis left lower eyelid (7) History of GI bleed Code(s): Z87.19 - PERSONAL HISTORY OF OTHER DISEASES OF THE DIGESTIVE SYSTEM (8) Pulmonary HTN Code(s): I27.20 - PULMONARY HYPERTENSION, UNSPECIFIED (9) Atrial fibrillation Code(s): I48.91 - UNSPECIFIED ATRIAL FIBRILLATION Qualifiers: Atrial fibrillation type: paroxysmal Qualified Code(s): I48.0 - Paroxysmal atrial fibrillation (10) HTN (hypertension) Code(s): I10 - ESSENTIAL (PRIMARY) HYPERTENSION (11) Hyperlipidemia Code(s): E78.5 - HYPERLIPIDEMIA, UNSPECIFIED Assessment/Plan IMP DYSPNEA IMPROVING ACUTE ON CHRONIC CHF IMPROVING BILATERAL PLEURAL EFFUSIONS SECONDARY TO CHF PULMONARY HTN AFIB LOWER EXT EDEMA H/O CVA H/O BILATERAL FRONTAL CRANIOTOMIES H/O GI BLEED ANEMIA ACUTE ON CHRONIC KIDNEY DISEASE PLAN LASIX ELIQUIS SUPPLEMENTAL O2 DAILY WTS F/U CHEST X-RAYS MONITOR LYTES, 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 H+H DR AJ Problem List - Problems (1) Acquired lymphedema of leg Code(s): I89.0 - LYMPHEDEMA, NOT ELSEWHERE CLASSIFIED (2) Pleural effusion Code(s): J90 - PLEURAL EFFUSION, NOT ELSEWHERE CLASSIFIED (3) Shortness of breath Code(s): R06.02 - SHORTNESS OF BREATH (4) Weakness Code(s): R53.1 - WEAKNESS (5) Diastolic CHF, acute on chronic Code(s): I50.33 - ACUTE ON CHRONIC DIASTOLIC (CONGESTIVE) HEART FAILURE (6) Blepharitis of both eyes Code(s): H01.003 - UNSPECIFIED BLEPHARITIS RIGHT EYE, UNSPECIFIED EYELID; H01.006 - UNSPECIFIED BLEPHARITIS LEFT EYE, UNSPECIFIED EYELID Qualifiers: Blepharitis type: squamous Eyelid: both upper and lower Qualified Code(s) : H01.021 - Squamous blepharitis right upper eyelid; H01.022 - Squamous blepharitis right lower eyelid; H01.022 - Squamous blepharitis right lower eyelid; H01.024 - Squamous blepharitis left upper eyelid; H01.024 - Squamous blepharitis left upper eyelid; H01.025 - Squamous blepharitis left lower eyelid ; H01.025 - Squamous blepharitis left lower eyelid (7) History of GI bleed Code(s): Z87.19 - PERSONAL HISTORY OF OTHER DISEASES OF THE DIGESTIVE SYSTEM (8) Pulmonary HTN Code(s): I27.20 - PULMONARY HYPERTENSION, UNSPECIFIED (9) Atrial fibrillation Code(s): I48.91 - UNSPECIFIED ATRIAL FIBRILLATION Qualifiers: Atrial fibrillation type: paroxysmal Qualified Code(s): I48.0 - Paroxysmal atrial fibrillation (10) HTN (hypertension) Code(s): I10 - ESSENTIAL (PRIMARY) HYPERTENSION (11) Hyperlipidemia Code(s): E78.5 - HYPERLIPIDEMIA, UNSPECIFIED
--- NOTE | 2019-02-17 12:26 | PN ---
Progress Note (short form) - Note Progress Note: breathing improving. no chest pain, palps, dizziness Current Medications Allopurinol (Zyloprim -) 100 mg PO DAILY [facility] Last Admin: 02/17/19 10:02 Dose: 100 mg Apixaban (Eliquis -) 2.5 mg PO BID [facility] Last Admin: 02/17/19 10:02 Dose: 2.5 mg Artificial Tears (Artificial Tears) 1 drop OU BID [facility] Last Admin: 02/17/19 10:03 Dose: 1 drop Atorvastatin Calcium (Lipitor -) 20 mg PO HS [facility] Last Admin: 02/16/19 21:12 Dose: 20 mg Cholecalciferol (Vitamin D3 -) 400 unit PO DAILY [facility] Last Admin: 02/17/19 10:02 Dose: 400 unit Docusate Sodium (Colace -) 100 mg PO TID [facility] Ferrous Gluconate (Fergon -) 324 mg PO DAILY [facility] Last Admin: 02/17/19 10:02 Dose: 324 mg Furosemide (Lasix Injection -) 80 mg IVPB BID@0600,1400 [facility] Last Admin: 02/17/19 06:01 Dose: 80 mg Magnesium Oxide (Mag-Ox -) 400 mg PO BID [facility] Last Admin: 02/17/19 10:02 Dose: 400 mg Metoprolol Succinate (Toprol Xl -) 150 mg PO BID [facility] Last Admin: 02/17/19 10:03 Dose: 150 mg Potassium Chloride (K-Dur -) 40 meq PO ONCE ONE Stop: 02/17/19 13:01 Valsartan (Diovan -) 40 mg PO DAILY [facility] Last Admin: 02/17/19 10:02 Dose: 40 mg Vital Signs Period Temp Pulse Resp BP Sys/[place]k Pulse Ox Last 24 Hr 98 F-98.5 F 71-91 18-20 114-157/52-80 97-97 Constitutional: Yes: Well Nourished, No Distress Eyes: No: Sclera Icterus HENT: No: Nasal Congestion Neck: No: Decreased ROM Respiratory: Yes: Diminished (R lower half), rales fern Gastrointestinal: Yes: Normal Bowel Sounds. No: Distention, Hepatomegaly, Palpable Mass, Tenderness Cardiovascular: Yes: Pulse Irregular JVD: Yes Heart Sounds: Yes: S1, S2. No: Gallop Murmur: No: Systolic Murmur, Diastolic Murmur Extremities: No: Cold, Cyanosis Edema: 3+ pitting edema fern with weeping Integumentary: No: Jaundice Neurological: Yes: Alert, Oriented (x3) Psychiatric: No: Agitated Laboratory Last Values WBC 8.2 K/mm3 (4.0-10.0) 02/16/19 05:28 RBC 3.69 M/mm3 (3.60-5.2) 02/16/19 05:28 Hgb 8.9 GM/dL (10.7-15.3) L 02/16/19 05:28 Hct 28.3 % (32.4-45.2) L 02/16/19 05:28 MCV 76.7 fl (80-96) L 02/16/19 05:28 MCH 24.0 pg (25.7-33.7) L 02/16/19 05:28 MCHC 31.3 g/dl (32.0-36.0) L 02/16/19 05:28 RDW 21.6 % (11.6-15.6) H 02/16/19 05:28 Plt Count 240 K/MM3 (134-434) 02/16/19 05:28 MPV 8.2 fl (7.5-11.1) 02/16/19 05:28 Absolute Neuts (auto) 5.6 K/mm3 (1.5-8.0) 02/16/19 05:28 Neutrophils % 68.6 % (42.8-82.8) 02/16/19 05:28 Lymphocytes % 19.4 % (8-40) 02/16/19 05:28 Monocytes % 9.7 % (3.8-10.2) 02/16/19 05:28 Eosinophils % 1.8 % (0-4.5) 02/16/19 05:28 Basophils % 0.5 % (0-2.0) 02/16/19 05:28 Nucleated RBC % 0 % (0-0) 02/16/19 05:28 PT with INR 22.50 SEC (9.7-13.0) H 02/16/19 05:28 INR 1.89 (0.83-1.09) H 02/16/19 05:28 PTT (Actin FS) 38.6 SECONDS (25.2-36.5) H 02/16/19 05:28 Sodium 145 mmol/L (136-145) 02/16/19 05:28 Potassium 3.5 mmol/L (3.5-5.1) 02/16/19 05:28 Chloride 109 mmol/L (98-107) H 02/16/19 05:28 Carbon Dioxide 29 mmol/L (21-32) 02/16/19 05:28 Anion Gap 7 MMOL/L (8-16) L 02/16/19 05:28 BUN 29.8 mg/dL (7-18) H 02/16/19 05:28 Creatinine 1.3 mg/dL (0.55-1.3) 02/16/19 05:28 Est GFR (CKD-EPI)AfAm 42.12 02/16/19 05:28 Est GFR (CKD-EPI)NonAf 36.34 02/16/19 05:28 Random Glucose 94 mg/dL (74-106) 02/16/19 05:28 Calcium 8.9 mg/dL (8.5-10.1) 02/16/19 05:28 Phosphorus 4.0 mg/dL (2.5-4.9) 02/16/19 05:28 Magnesium 2.0 mg/dL (1.8-2.4) 02/16/19 05:28 Total Bilirubin 1.7 mg/dL (0.2-1) H 02/16/19 05:28 AST 24 U/L (15-37) 02/16/19 05:28 ALT 22 U/L (13-61) 02/16/19 05:28 Alkaline Phosphatase 185 U/L (45-117) H 02/16/19 05:28 Creatine Kinase 141 U/L (26-192) 02/15/19 22:02 Creatine Kinase Index 2.9 % (0.0-5.0) 02/15/19 13:15 CK-MB (CK-2) 5.6 ng/mL (0.5-3.6) H 02/15/19 13:15 Troponin I 0.03 ng/ml (0.00-0.05) 02/15/19 22:02 B-Natriuretic Peptide 4365.1 pg/ml (5-450) H 02/15/19 13:15 Total Protein 6.2 g/dl (6.4-8.2) L 02/16/19 05:28 Albumin 2.9 g/dl (3.4-5.0) L 02/16/19 05:28 Urine Color Yellow 02/15/19 22:02 Urine Appearance Clear 02/15/19 22:02 Urine pH 6.0 (5.0-8.0) 02/15/19 22:02 Ur Specific [place] 1.007 (1.010-1.035) L 02/15/19 22:02 Urine Protein Negative (NEGATIVE) 02/15/19 22:02 Urine Glucose (UA) Negative (NEGATIVE) 02/15/19 22:02 Urine Ketones Negative (NEGATIVE) 02/15/19 22:02 Urine Blood Negative (NEGATIVE) 02/15/19 22:02 Urine Nitrite Negative (NEGATIVE) 02/15/19 22:02 Urine Bilirubin Negative (NEGATIVE) 02/15/19 22:02 Urine Urobilinogen 0.2 mg/dL (0.2-1.0) 02/15/19 22:02 Ur Leukocyte Esterase Negative (NEGATIVE) 02/15/19 22:02 Assessment/Plan ECG: afib, PVC. baseline wander artifact. NSTWAs diffusely--unchanged vs prior CT chest: large R effusion, small L. no pulm edema described Echo 02/14: ([facility]): LV not well seen. RV ??. mild (AV not well seen). mod-sev MR and TR. RVSP 40-50. Echo 06/2017: nl lv fn. mod rve. rv sys function moderately reduced. mild MR, mod TR. sev phtn. trivial pericardial effusion. Echo 2016: low-nl EF 50-55% (beat to beat variability). mod RV dilation, borderline depressed RV fxn. 1+ /MR, Mod TR, mod pHTN (avg TR 42 mmHg), Cath 2005: LVEDP 18, EF 60%. pRCA mild, pLAD mild, mLAD 50-60%, pLCx mild, OM1 mild. CT head: R occipital lobe infarct, likely old Carotid sono 2018: rt common carotid with mod plaque 50-69%. moderate plaque on left with borderline stenosis. 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, R pleural effusion - not taking torsemide as prescribed at home - was prescribed 40 mg daily and taking 20 mg most days - weight down, Cr stable - continue lasix 80 mg IV BID - monitor R effusion - if not responding to diuretics may need thoracentesis - CT chest pending - monitor cr, lytes, daily weights - cont home metoprolol, valsartan (was on olmesartan at home due to recall of valsartan) Afib - stable, continue metoprolol , eliquis CKD: -baseline creat 1.0-1.5 -renal fxn stable here HTN: - stable, cont home meds carotid atherosclerosis, - previously declined further imaging w/u as outpt - cont statin
[2019-02-17] MEDS: DOCUSATE SODIUM 100 MG CAPSULE (FP) PO SCH ×2 (14:36→21:41)
[2019-02-17] MEDS: ATORVASTATIN CA 10 MG TABLET (FP) PO SCH (21:41)
[2019-02-18] MEDS: DOCUSATE SODIUM 100 MG CAPSULE (FP) PO SCH ×3 (06:33→21:10)
[2019-02-18] MEDS: FUROSEMIDE 40 MG/4 ML INJECTABLE VIAL IVPB SCH ×2 (06:33→13:13)
[2019-02-18 08:00] LABS: BASO % 1.2 % (0-2.0); HEMATOCRIT 28.9 % (32.4-45.2); HEMOGLOBIN 8.9 GM/dL (10.7-15.3); LYMPH % 21.2 % (8-40); MCH 23.6 pg (25.7-33.7); MCHC 30.7 g/dl (32.0-36.0); MEAN PLT VOLUME 8.2 fl (7.5-11.1); MONO % 11.3 % (3.8-10.2); NEUT % 63.3 % (42.8-82.8); PLATELET COUNT 231 K/MM3 (134-434); RBC 3.75 M/mm3 (3.60-5.2); RDW 20.9 % (11.6-15.6); WHITE BLOOD COUNT 6.8 K/mm3 (4.0-10.0)
[2019-02-18 08:05] LABS: ALBUMIN 2.9 g/dl (3.4-5.0); BILIRUBIN,TOTAL 1.2 mg/dL (0.2-1); BLOOD UREA NITROGEN 29.2 mg/dL (7-18); CALCIUM 8.9 mg/dL (8.5-10.1); CREATININE 1.2 mg/dL (0.55-1.3); POTASSIUM 4.3 mmol/L (3.5-5.1); TOT PROT 6.1 g/dl (6.4-8.2)
[2019-02-18] MEDS ORDERED: PT OWN MED DRAWER 7, Y5N ONE (09:51)
[2019-02-18] MEDS: FERROUS GLUCONATE 324 MG TAB (FP) PO SCH (10:15)
[2019-02-18] MEDS: ALLOPURINOL 100 MG TABLET (FP) PO SCH (10:15)
[2019-02-18] MEDS: VALSARTAN 40 MG TABLET (FP) PO SCH (10:15)
[2019-02-18] MEDS: MAGNESIUM OXIDE 400 MG TABLET (FP) PO SCH ×2 (10:16→21:08)
[2019-02-18] MEDS: ARTIFICIAL TEARS (POLYVINYL ALCOHOL) OPTH DROPS OU SCH ×2 (10:16→21:10)
[2019-02-18] MEDS: CHOLECALCIFEROL (VIT D3) 400 UNIT (10 MCG) TABLET PO SCH (10:16)
[2019-02-18] MEDS: APIXABAN 2.5 MG TABLET PO SCH ×2 (10:16→21:10)
--- NOTE | 2019-02-18 12:31 | PN ---
Progress Note, Physician History of Present Illness: pulmonary alert,comfortable at rest c/o sob with min exertion - Current Medication List Current Medications: Active Medications Allopurinol (Zyloprim -) 100 mg PO DAILY [facility] Last Admin: 02/18/19 10:15 Dose: 100 mg Apixaban (Eliquis -) 2.5 mg PO BID [facility] Last Admin: 02/18/19 10:16 Dose: 2.5 mg Artificial Tears (Artificial Tears) 1 drop OU BID [facility] Last Admin: 02/18/19 10:16 Dose: 1 drop Atorvastatin Calcium (Lipitor -) 20 mg PO HS [facility] Last Admin: 02/17/19 21:41 Dose: 20 mg Cholecalciferol (Vitamin D3 -) 400 unit PO DAILY [facility] Last Admin: 02/18/19 10:16 Dose: 400 unit Docusate Sodium (Colace -) 100 mg PO TID [facility] Last Admin: 02/18/19 06:33 Dose: 100 mg Ferrous Gluconate (Fergon -) 324 mg PO DAILY [facility] Last Admin: 02/18/19 10:15 Dose: 324 mg Furosemide (Lasix Injection -) 80 mg IVPB BID@0600,1400 [facility] Last Admin: 02/18/19 06:33 Dose: 80 mg Magnesium Oxide (Mag-Ox -) 400 mg PO BID [facility] Last Admin: 02/18/19 10:16 Dose: 400 mg Metoprolol Succinate (Toprol Xl -) 150 mg PO BID [facility] Last Admin: 02/18/19 10:15 Dose: 150 mg Valsartan (Diovan -) 40 mg PO DAILY [facility] Last Admin: 02/18/19 10:15 Dose: 40 mg - Objective Vital Signs: Vital Signs Temperature 98.0 F 02/18/19 10:00 Pulse Rate 79 02/18/19 10:00 Respiratory Rate 18 02/18/19 10:00 Blood Pressure 141/92 02/18/19 10:00 O2 Sat by Pulse Oximetry (%) 97 02/18/19 09:00 Constitutional: Yes: Well Nourished, Calm Eyes: Yes: WNL HENT: Yes: WNL Neck: Yes: WNL Cardiovascular: Yes: Pulse Irregular, S1, S2 Respiratory: Yes: Diminished Gastrointestinal: Yes: Normal Bowel Sounds, Soft Extremities: Yes: WNL Edema: Yes Labs: CBC, BMP 02/18/19 05:25 02/18/19 05:25 INR, PTT INR 1.89 (0.83-1.09) H 02/16/19 05:28 Problem List - Problems (1) Acquired lymphedema of leg Code(s): I89.0 - LYMPHEDEMA, NOT ELSEWHERE CLASSIFIED (2) Pleural effusion Code(s): J90 - PLEURAL EFFUSION, NOT ELSEWHERE CLASSIFIED (3) Shortness of breath Code(s): R06.02 - SHORTNESS OF BREATH (4) Weakness Code(s): R53.1 - WEAKNESS (5) Diastolic CHF, acute on chronic Code(s): I50.33 - ACUTE ON CHRONIC DIASTOLIC (CONGESTIVE) HEART FAILURE (6) Blepharitis of both eyes Code(s): H01.003 - UNSPECIFIED BLEPHARITIS RIGHT EYE, UNSPECIFIED EYELID; H01.006 - UNSPECIFIED BLEPHARITIS LEFT EYE, UNSPECIFIED EYELID Qualifiers: Blepharitis type: squamous Eyelid: both upper and lower Qualified Code(s) : H01.02A - Squamous blepharitis right eye, upper and lower eyelids; H01.02B - Squamous blepharitis left eye, upper and lower eyelids (7) History of GI bleed Code(s): Z87.19 - PERSONAL HISTORY OF OTHER DISEASES OF THE DIGESTIVE SYSTEM (8) Pulmonary HTN Code(s): I27.20 - PULMONARY HYPERTENSION, UNSPECIFIED (9) Atrial fibrillation Code(s): I48.91 - UNSPECIFIED ATRIAL FIBRILLATION Qualifiers: Atrial fibrillation type: paroxysmal Qualified Code(s): I48.0 - Paroxysmal atrial fibrillation (10) HTN (hypertension) Code(s): I10 - ESSENTIAL (PRIMARY) HYPERTENSION (11) Hyperlipidemia Code(s): E78.5 - HYPERLIPIDEMIA, UNSPECIFIED Assessment/Plan IMP DYSPNEA IMPROVING ACUTE ON CHRONIC CHF IMPROVING BILATERAL PLEURAL EFFUSIONS SECONDARY TO CHF PULMONARY HTN AFIB LOWER EXT EDEMA H/O CVA H/O BILATERAL FRONTAL CRANIOTOMIES H/O GI BLEED ANEMIA ACUTE ON CHRONIC KIDNEY DISEASE PLAN LASIX ELIQUIS SUPPLEMENTAL O2 DAILY WTS F/U CHEST X-RAYS MONITOR LYTES, 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 H+H DR AJ Problem List - Problems (1) Acquired lymphedema of leg Code(s): I89.0 - LYMPHEDEMA, NOT ELSEWHERE CLASSIFIED (2) Pleural effusion Code(s): J90 - PLEURAL EFFUSION, NOT ELSEWHERE CLASSIFIED (3) Shortness of breath Code(s): R06.02 - SHORTNESS OF BREATH (4) Weakness Code(s): R53.1 - WEAKNESS (5) Diastolic CHF, acute on chronic Code(s): I50.33 - ACUTE ON CHRONIC DIASTOLIC (CONGESTIVE) HEART FAILURE (6) Blepharitis of both eyes Code(s): H01.003 - UNSPECIFIED BLEPHARITIS RIGHT EYE, UNSPECIFIED EYELID; H01.006 - UNSPECIFIED BLEPHARITIS LEFT EYE, UNSPECIFIED EYELID Qualifiers: Blepharitis type: squamous Eyelid: both upper and lower Qualified Code(s) : H01.021 - Squamous blepharitis right upper eyelid; H01.022 - Squamous blepharitis right lower eyelid; H01.022 - Squamous blepharitis right lower eyelid; H01.024 - Squamous blepharitis left upper eyelid; H01.024 - Squamous blepharitis left upper eyelid; H01.025 - Squamous blepharitis left lower eyelid ; H01.025 - Squamous blepharitis left lower eyelid (7) History of GI bleed Code(s): Z87.19 - PERSONAL HISTORY OF OTHER DISEASES OF THE DIGESTIVE SYSTEM (8) Pulmonary HTN Code(s): I27.20 - PULMONARY HYPERTENSION, UNSPECIFIED (9) Atrial fibrillation Code(s): I48.91 - UNSPECIFIED ATRIAL FIBRILLATION Qualifiers: Atrial fibrillation type: paroxysmal Qualified Code(s): I48.0 - Paroxysmal atrial fibrillation (10) HTN (hypertension) Code(s): I10 - ESSENTIAL (PRIMARY) HYPERTENSION (11) Hyperlipidemia Code(s): E78.5 - HYPERLIPIDEMIA, UNSPECIFIED
--- NOTE | 2019-02-18 12:48 | PN ---
Progress Note (short form) - Note Progress Note: s:breathing improving. no chest pain, palps, dizziness Current Medications Generic Name Dose Route Start Last Admin Trade Name Selena PRN Reason Stop Dose Admin Allopurinol 100 mg 02/16/19 10:00 02/18/19 10:15 Zyloprim - PO 100 mg DAILY [facility] Administration Apixaban 2.5 mg 02/15/19 22:00 02/18/19 10:16 Eliquis - PO 2.5 mg BID [facility] Administration Artificial Tears 1 drop 02/15/19 22:00 02/18/19 10:16 Artificial Tears OU 1 drop BID [facility] Administration Atorvastatin Calcium 20 mg 02/15/19 22:00 02/17/19 21:41 Lipitor - PO 20 mg HS [facility] Administration Cholecalciferol 400 unit 02/16/19 10:00 02/18/19 10:16 Vitamin D3 - PO 400 unit DAILY [facility] Administration Docusate Sodium 100 mg 02/17/19 14:00 02/18/19 06:33 Colace - PO 100 mg TID [facility] Administration Ferrous Gluconate 324 mg 02/16/19 10:00 02/18/19 10:15 Fergon - PO 324 mg DAILY [facility] Administration Furosemide 80 mg 02/16/19 06:00 02/18/19 06:33 Lasix Injection - IVPB 80 mg BID@0600,1400 [facility] Administration Magnesium Oxide 400 mg 02/15/19 22:00 02/18/19 10:16 Mag-Ox - PO 400 mg BID [facility] Administration Metoprolol Succinate 150 mg 02/15/19 22:00 02/18/19 10:15 Toprol Xl - PO 150 mg BID [facility] Administration Valsartan 40 mg 02/16/19 10:00 02/18/19 10:15 Diovan - PO 40 mg DAILY [facility] Administration Vital Signs Period Temp Pulse Resp BP Sys/Polk Pulse Ox Last 24 Hr 97.5 F-98.2 F 76-83 18-18 109-143/46-97 97-97 Constitutional: Yes: Well Nourished, No Distress Eyes: No: Sclera Icterus HENT: No: Nasal Congestion Neck: No: Decreased ROM Respiratory: Yes: Diminished (R lower half), rales fern Gastrointestinal: Yes: Normal Bowel Sounds. No: Distention, Hepatomegaly, Palpable Mass, Tenderness Cardiovascular: Yes: Pulse Irregular JVD: Yes Heart Sounds: Yes: S1, S2. No: Gallop Murmur: No: Systolic Murmur, Diastolic Murmur Extremities: No: Cold, Cyanosis Edema: 3+ pitting edema fern with weeping Integumentary: No: Jaundice Neurological: Yes: Alert, Oriented (x3) Psychiatric: No: Agitated CBC, BMP 02/18/19 05:25 02/18/19 05:25 Assessment/Plan ECG: afib, PVC. baseline wander artifact. NSTWAs diffusely--unchanged vs prior CT chest: large R effusion, small L. no pulm edema described Echo 02/14: ([facility]): LV not well seen. RV ??. mild (AV not well seen). mod-sev MR and TR. RVSP 40-50. Echo 06/2017: nl lv fn. mod rve. rv sys function moderately reduced. mild MR, mod TR. sev phtn. trivial pericardial effusion. Echo 2016: low-nl EF 50-55% (beat to beat variability). mod RV dilation, borderline depressed RV fxn. 1+ /MR, Mod TR, mod pHTN (avg TR 42 mmHg), Cath 2006: LVEDP 18, EF 60%. pRCA mild, pLAD mild, mLAD 50-60%, pLCx mild, OM1 mild. CT head: R occipital lobe infarct, likely old Carotid sono 2018: rt common carotid with mod plaque 50-69%. moderate plaque on left with borderline stenosis. 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
--- NOTE | 2019-02-18 16:04 | PN ---
Physical Exam: SUBJECTIVE: Patient seen and examined. She feels SOB while speaking. She ambulated 35' with a rolling walker with PT and says after initially feeling dizzy, she felt ok. OBJECTIVE: Vital Signs Period Temp Pulse Resp BP Sys/Polk Pulse Ox Last 24 Hr 97.5 F-98.2 F 77-89 18-18 109-143/46-97 97-97 GENERAL: The patient is awake, alert, and fully oriented, dyspneic while speaking. LUNGS: Clear to auscultation bilaterally with decreased breath sounds at bases. HEART: Irregularly irregular. ABDOMEN: Obese, soft, nontender, nondistended, normoactive bowel sounds, no guarding, no rebound, no hepatosplenomegaly, no masses. EXTREMITIES: 2+ pulses, warm, well-perfused, 3+ edema. Laboratory Results - last 24 hr 02/18/19 02/18/19 05:25 05:25 WBC 6.8 RBC 3.75 Hgb 8.9 L Hct 28.9 L MCV 77.0 L MCH 23.6 L MCHC 30.7 L RDW 20.9 H Plt Count 231 MPV 8.2 Absolute Neuts (auto) 4.3 Neutrophils % 63.3 Lymphocytes % 21.2 Monocytes % 11.3 H Eosinophils % 3.0 Basophils % 1.2 Nucleated RBC % 0 Sodium 145 Potassium 4.3 Chloride 104 Carbon Dioxide 34 H Anion Gap 6 L BUN 29.2 H Creatinine 1.2 Est GFR (CKD-EPI)AfAm 46.40 Est GFR (CKD-EPI)NonAf 40.04 Random Glucose 89 Calcium 8.9 Iron 32 L TIBC 383 Iron Saturation 8 L Unsaturated IBC 351 H Ferritin 32.9 Total Bilirubin 1.2 H AST 24 ALT 22 Alkaline Phosphatase 205 H Total Protein 6.1 L Albumin 2.9 L Active Medications Generic Name Dose Route Start Last Admin Trade Name Freq PRN Reason Stop Dose Admin Allopurinol 100 mg 02/16/19 10:00 02/18/19 10:15 Zyloprim - PO 100 mg DAILY NOEMÍ Administration Apixaban 2.5 mg 02/15/19 22:00 02/18/19 10:16 Eliquis - PO 2.5 mg BID NOEMÍ Administration Artificial Tears 1 drop 02/15/19 22:00 02/18/19 10:16 Artificial Tears OU 1 drop BID NOEMÍ Administration Atorvastatin Calcium 20 mg 02/15/19 22:00 02/17/19 21:41 Lipitor - PO 20 mg HS NOEMÍ Administration Cholecalciferol 400 unit 02/16/19 10:00 02/18/19 10:16 Vitamin D3 - PO 400 unit DAILY NOEMÍ Administration Docusate Sodium 100 mg 02/17/19 14:00 02/18/19 13:13 Colace - PO Not Given TID NOEMÍ Ferrous Gluconate 324 mg 02/16/19 10:00 02/18/19 10:15 Fergon - PO 324 mg DAILY NOEMÍ Administration Furosemide 80 mg 02/16/19 06:00 02/18/19 13:13 Lasix Injection - IVPB 80 mg BID@0600,1400 NOEMÍ Administration Magnesium Oxide 400 mg 02/15/19 22:00 02/18/19 10:16 Mag-Ox - PO 400 mg BID NOEMÍ Administration Metoprolol Succinate 150 mg 02/15/19 22:00 02/18/19 10:15 Toprol Xl - PO 150 mg BID NOEMÍ Administration Valsartan 40 mg 02/16/19 10:00 02/18/19 10:15 Diovan - PO 40 mg DAILY NOEMÍ Administration ASSESSMENT/PLAN: This is an 88 year old woman with a history of chronic diastolic heart failure, atrial fib, GI bleed, chronic venous insufficiency with lymphedema, HTN, hyperlipidemia who presented to the ED with leg swelling and SOB. 1. Acute on chronic diastolic heart failure with right pleural effusion - Continue Lasix IV - Monitor I&O, weight 2. Stage 3 CKD - Creatinine stable 3. Hypokalemia - Improved 4. Atrial fibrillation, permanent - Continue Toprol XL, Eliquis 5. HTN - Continue Diovan, Toprol XL, Lasix 6. Hyperlipidemia - Continue Lipitor 7. Anemia secondary to iron deficiency - Hemoglobin stable - Continue ferrous gluconate 8. Chronic venous insufficiency with lymphedema 9. Obesity with BMI 31.7 10. Disposition - Expect she will need short-term rehab at discharge Visit type - Emergency Visit Emergency Visit: Yes ED Registration Date: 02/15/19 Care time: The patient presented to the Emergency Department on the above date and was hospitalized for further evaluation of their emergent condition. - New Patient This patient is new to me today: Yes Date on this admission: 02/18/19 - Critical Care Critical Care patient: No - Discharge Referral Referred to [facility] Med P.C.: No
[2019-02-18] MEDS: ATORVASTATIN CA 10 MG TABLET (FP) PO SCH (21:09)
[2019-02-19] MEDS: FUROSEMIDE 40 MG/4 ML INJECTABLE VIAL IVPB SCH ×2 (06:32→14:04)
[2019-02-19] MEDS: DOCUSATE SODIUM 100 MG CAPSULE (FP) PO SCH ×3 (06:33→21:17)
[2019-02-19 07:43] LABS: HEMATOCRIT 28.1 % (32.4-45.2); HEMOGLOBIN 8.8 GM/dL (10.7-15.3); MCH 23.9 pg (25.7-33.7); MCHC 31.3 g/dl (32.0-36.0); MEAN CELL VOLUME 76.6 fl (80-96); MEAN PLT VOLUME 8.3 fl (7.5-11.1); PLATELET COUNT 226 K/MM3 (134-434); RBC 3.66 M/mm3 (3.60-5.2); RDW 21.2 % (11.6-15.6)
[2019-02-19 08:07] LABS: BLOOD UREA NITROGEN 29.8 mg/dL (7-18); CALCIUM 8.9 mg/dL (8.5-10.1); CREATININE 1.2 mg/dL (0.55-1.3); MAGNESIUM 2.3 mg/dL (1.8-2.4); POTASSIUM 3.9 mmol/L (3.5-5.1)
[2019-02-19] MEDS: ARTIFICIAL TEARS (POLYVINYL ALCOHOL) OPTH DROPS OU SCH ×2 (10:15→21:20)
[2019-02-19] MEDS: APIXABAN 2.5 MG TABLET PO SCH ×2 (10:16→21:17)
[2019-02-19] MEDS: MAGNESIUM OXIDE 400 MG TABLET (FP) PO SCH ×2 (10:16→21:17)
[2019-02-19] MEDS: ALLOPURINOL 100 MG TABLET (FP) PO SCH (10:17)
[2019-02-19] MEDS: VALSARTAN 40 MG TABLET (FP) PO SCH (10:17)
[2019-02-19] MEDS: CHOLECALCIFEROL (VIT D3) 400 UNIT (10 MCG) TABLET PO SCH (10:17)
[2019-02-19] MEDS ORDERED: PT OWN MED DRAWER 7, Y5N ONE (10:25)
[2019-02-19] MEDS: FERROUS GLUCONATE 324 MG TAB (FP) PO SCH (10:25)
--- NOTE | 2019-02-19 10:46 | PN ---
Progress Note, Physician History of Present Illness: PULMONARY ALERT,SITTING UP IN BED, DYSPNEA IMPROVING - Current Medication List Current Medications: Active Medications Allopurinol (Zyloprim -) 100 mg PO DAILY [facility] Last Admin: 02/19/19 10:17 Dose: 100 mg Apixaban (Eliquis -) 2.5 mg PO BID [facility] Last Admin: 02/19/19 10:16 Dose: 2.5 mg Artificial Tears (Artificial Tears) 1 drop OU BID [facility] Last Admin: 02/19/19 10:15 Dose: 1 drop Atorvastatin Calcium (Lipitor -) 20 mg PO HS [facility] Last Admin: 02/18/19 21:09 Dose: 20 mg Cholecalciferol (Vitamin D3 -) 400 unit PO DAILY [facility] Last Admin: 02/19/19 10:17 Dose: 400 unit Docusate Sodium (Colace -) 100 mg PO TID [facility] Last Admin: 02/19/19 06:33 Dose: 100 mg Ferrous Gluconate (Fergon -) 324 mg PO DAILY [facility] Last Admin: 02/19/19 10:25 Dose: 324 mg Furosemide (Lasix Injection -) 80 mg IVPB BID@0600,1400 [facility] Last Admin: 02/19/19 06:32 Dose: 80 mg Magnesium Oxide (Mag-Ox -) 400 mg PO BID [facility] Last Admin: 02/19/19 10:16 Dose: 400 mg Metoprolol Succinate (Toprol Xl -) 150 mg PO BID [facility] Last Admin: 02/19/19 10:16 Dose: 150 mg Valsartan (Diovan -) 40 mg PO DAILY [facility] Last Admin: 02/19/19 10:17 Dose: 40 mg - Objective Vital Signs: Vital Signs Temperature 98.3 F 02/19/19 10:38 Pulse Rate 89 02/19/19 10:38 Respiratory Rate 17 02/19/19 10:38 Blood Pressure 117/51 L 02/19/19 10:38 O2 Sat by Pulse Oximetry (%) 97 02/19/19 08:49 Constitutional: Yes: Well Nourished, Calm Eyes: Yes: WNL HENT: Yes: WNL Neck: Yes: WNL Cardiovascular: Yes: Pulse Irregular, S1, S2 Respiratory: Yes: Diminished (DIMINISED BS R 1/3 UP), Rales (JUDSON CRACKLES) Gastrointestinal: Yes: Normal Bowel Sounds, Soft Extremities: Yes: WNL Edema: Yes Labs: CBC, BMP 02/19/19 05:35 02/19/19 05:35 INR, PTT INR 1.89 (0.83-1.09) H 02/16/19 05:28 Problem List - Problems (1) Acquired lymphedema of leg Code(s): I89.0 - LYMPHEDEMA, NOT ELSEWHERE CLASSIFIED (2) Pleural effusion Code(s): J90 - PLEURAL EFFUSION, NOT ELSEWHERE CLASSIFIED (3) Shortness of breath Code(s): R06.02 - SHORTNESS OF BREATH (4) Weakness Code(s): R53.1 - WEAKNESS (5) Diastolic CHF, acute on chronic Code(s): I50.33 - ACUTE ON CHRONIC DIASTOLIC (CONGESTIVE) HEART FAILURE (6) Blepharitis of both eyes Code(s): H01.003 - UNSPECIFIED BLEPHARITIS RIGHT EYE, UNSPECIFIED EYELID; H01.006 - UNSPECIFIED BLEPHARITIS LEFT EYE, UNSPECIFIED EYELID Qualifiers: Blepharitis type: squamous Eyelid: both upper and lower Qualified Code(s) : H01.02A - Squamous blepharitis right eye, upper and lower eyelids; H01.02B - Squamous blepharitis left eye, upper and lower eyelids (7) History of GI bleed Code(s): Z87.19 - PERSONAL HISTORY OF OTHER DISEASES OF THE DIGESTIVE SYSTEM (8) Pulmonary HTN Code(s): I27.20 - PULMONARY HYPERTENSION, UNSPECIFIED (9) Atrial fibrillation Code(s): I48.91 - UNSPECIFIED ATRIAL FIBRILLATION Qualifiers: Atrial fibrillation type: paroxysmal Qualified Code(s): I48.0 - Paroxysmal atrial fibrillation (10) HTN (hypertension) Code(s): I10 - ESSENTIAL (PRIMARY) HYPERTENSION (11) Hyperlipidemia Code(s): E78.5 - HYPERLIPIDEMIA, UNSPECIFIED Assessment/Plan IMP DYSPNEA IMPROVING ACUTE ON CHRONIC CHF IMPROVING BILATERAL PLEURAL EFFUSIONS SECONDARY TO CHF PULMONARY HTN AFIB LOWER EXT EDEMA H/O CVA H/O BILATERAL FRONTAL CRANIOTOMIES H/O GI BLEED ANEMIA ACUTE ON CHRONIC KIDNEY DISEASE PLAN CONTINUE LASIX ELIQUIS SUPPLEMENTAL O2 DAILY WTS F/U CHEST X-RAY TODAY MONITOR LYTES, 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 H+H DR AJ Problem List - Problems (1) Acquired lymphedema of leg Code(s): I89.0 - LYMPHEDEMA, NOT ELSEWHERE CLASSIFIED (2) Pleural effusion Code(s): J90 - PLEURAL EFFUSION, NOT ELSEWHERE CLASSIFIED (3) Shortness of breath Code(s): R06.02 - SHORTNESS OF BREATH (4) Weakness Code(s): R53.1 - WEAKNESS (5) Diastolic CHF, acute on chronic Code(s): I50.33 - ACUTE ON CHRONIC DIASTOLIC (CONGESTIVE) HEART FAILURE (6) Blepharitis of both eyes Code(s): H01.003 - UNSPECIFIED BLEPHARITIS RIGHT EYE, UNSPECIFIED EYELID; H01.006 - UNSPECIFIED BLEPHARITIS LEFT EYE, UNSPECIFIED EYELID Qualifiers: Blepharitis type: squamous Eyelid: both upper and lower Qualified Code(s) : H01.021 - Squamous blepharitis right upper eyelid; H01.022 - Squamous blepharitis right lower eyelid; H01.022 - Squamous blepharitis right lower eyelid; H01.024 - Squamous blepharitis left upper eyelid; H01.024 - Squamous blepharitis left upper eyelid; H01.025 - Squamous blepharitis left lower eyelid ; H01.025 - Squamous blepharitis left lower eyelid (7) History of GI bleed Code(s): Z87.19 - PERSONAL HISTORY OF OTHER DISEASES OF THE DIGESTIVE SYSTEM (8) Pulmonary HTN Code(s): I27.20 - PULMONARY HYPERTENSION, UNSPECIFIED (9) Atrial fibrillation Code(s): I48.91 - UNSPECIFIED ATRIAL FIBRILLATION Qualifiers: Atrial fibrillation type: paroxysmal Qualified Code(s): I48.0 - Paroxysmal atrial fibrillation (10) HTN (hypertension) Code(s): I10 - ESSENTIAL (PRIMARY) HYPERTENSION (11) Hyperlipidemia Code(s): E78.5 - HYPERLIPIDEMIA, UNSPECIFIED
--- NOTE | 2019-02-19 13:15 | PN ---
Progress Note (short form) - Note Progress Note: s:breathing improving. no chest pain, palps, dizziness Current Medications Generic Name Dose Route Start Last Admin Trade Name Selena PRN Reason Stop Dose Admin Allopurinol 100 mg 02/16/19 10:00 02/19/19 10:17 Zyloprim - PO 100 mg DAILY NOEMÍ Administration Apixaban 2.5 mg 02/15/19 22:00 02/19/19 10:16 Eliquis - PO 2.5 mg BID NOEMÍ Administration Artificial Tears 1 drop 02/15/19 22:00 02/19/19 10:15 Artificial Tears OU 1 drop BID NOEMÍ Administration Atorvastatin Calcium 20 mg 02/15/19 22:00 02/18/19 21:09 Lipitor - PO 20 mg HS NOEMÍ Administration Cholecalciferol 400 unit 02/16/19 10:00 02/19/19 10:17 Vitamin D3 - PO 400 unit DAILY NOEMÍ Administration Docusate Sodium 100 mg 02/17/19 14:00 02/19/19 06:33 Colace - PO 100 mg TID NOEMÍ Administration Ferrous Gluconate 324 mg 02/16/19 10:00 02/19/19 10:25 Fergon - PO 324 mg DAILY NOEMÍ Administration Furosemide 80 mg 02/16/19 06:00 02/19/19 06:32 Lasix Injection - IVPB 80 mg BID@0600,1400 NOEMÍ Administration Magnesium Oxide 400 mg 02/15/19 22:00 02/19/19 10:16 Mag-Ox - PO 400 mg BID NOEMÍ Administration Metoprolol Succinate 150 mg 02/15/19 22:00 02/19/19 10:16 Toprol Xl - PO 150 mg BID NOEMÍ Administration Valsartan 40 mg 02/16/19 10:00 02/19/19 10:17 Diovan - PO 40 mg DAILY NOEMÍ Administration CBC, BMP 02/19/19 05:35 02/19/19 05:35 Constitutional: Yes: Well Nourished, No Distress Eyes: No: Sclera Icterus HENT: No: Nasal Congestion Neck: No: Decreased ROM Respiratory: Yes: Diminished (R lower half), rales fern Gastrointestinal: Yes: Normal Bowel Sounds. No: Distention, Hepatomegaly, Palpable Mass, Tenderness Cardiovascular: Yes: Pulse Irregular JVD: Yes Heart Sounds: Yes: S1, S2. No: Gallop Murmur: No: Systolic Murmur, Diastolic Murmur Extremities: No: Cold, Cyanosis Edema: 2+ pitting edema fern Integumentary: No: Jaundice Neurological: Yes: Alert, Oriented (x3) Psychiatric: No: Agitated CBC, BMP 02/19/19 05:35 02/19/19 05:35 Assessment/Plan ECG: afib, PVC. baseline wander artifact. NSTWAs diffusely--unchanged vs prior CT chest: large R effusion, small L. no pulm edema described Echo 02/14: ([facility]): LV not well seen. RV ??. mild (AV not well seen). mod-sev MR and TR. RVSP 40-50. Echo 06/2017: nl lv fn. mod rve. rv sys function moderately reduced. mild MR, mod TR. sev phtn. trivial pericardial effusion. Echo 2016: low-nl EF 50-55% (beat to beat variability). mod RV dilation, borderline depressed RV fxn. 1+ /MR, Mod TR, mod pHTN (avg TR 42 mmHg), Cath 2006: LVEDP 18, EF 60%. pRCA mild, pLAD mild, mLAD 50-60%, pLCx mild, OM1 mild. CT head: R occipital lobe infarct, likely old Carotid sono 2018: rt common carotid with mod plaque 50-69%. moderate plaque on left with borderline stenosis. 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
--- NOTE | 2019-02-19 14:21 | PN ---
Physical Exam: SUBJECTIVE: Patient seen and examined. She feels her SOB is improving. OBJECTIVE: Vital Signs Period Temp Pulse Resp BP Sys/Polk Pulse Ox Last 24 Hr 97.7 F-98.3 F 72-89 17-20 117-148/50-83 97-98 GENERAL: The patient is awake, alert, and fully oriented, dyspneic while speaking. LUNGS: Clear to auscultation bilaterally with decreased breath sounds at right bases. HEART: Irregularly irregular. ABDOMEN: Obese, soft, nontender, nondistended, normoactive bowel sounds, no guarding, no rebound, no hepatosplenomegaly, no masses. EXTREMITIES: 2+ pulses, warm, well-perfused, 2+ edema. Laboratory Results - last 24 hr 02/19/19 02/19/19 05:35 05:35 WBC 7.0 RBC 3.66 Hgb 8.8 L Hct 28.1 L MCV 76.6 L MCH 23.9 L MCHC 31.3 L RDW 21.2 H Plt Count 226 MPV 8.3 Sodium 145 Potassium 3.9 Chloride 102 Carbon Dioxide 35 H Anion Gap 8 BUN 29.8 H Creatinine 1.2 Est GFR (CKD-EPI)AfAm 46.40 Est GFR (CKD-EPI)NonAf 40.04 Random Glucose 81 Calcium 8.9 Magnesium 2.3 Active Medications Generic Name Dose Route Start Last Admin Trade Name Freq PRN Reason Stop Dose Admin Allopurinol 100 mg 02/16/19 10:00 02/19/19 10:17 Zyloprim - PO 100 mg DAILY NOEMÍ Administration Apixaban 2.5 mg 02/15/19 22:00 02/19/19 10:16 Eliquis - PO 2.5 mg BID NOEMÍ Administration Artificial Tears 1 drop 02/15/19 22:00 02/19/19 10:15 Artificial Tears OU 1 drop BID NOEMÍ Administration Atorvastatin Calcium 20 mg 02/15/19 22:00 02/18/19 21:09 Lipitor - PO 20 mg HS NOEMÍ Administration Cholecalciferol 400 unit 02/16/19 10:00 02/19/19 10:17 Vitamin D3 - PO 400 unit DAILY NOEMÍ Administration Docusate Sodium 100 mg 02/17/19 14:00 02/19/19 14:04 Colace - PO 100 mg TID NOEMÍ Administration Ferrous Gluconate 324 mg 02/16/19 10:00 02/19/19 10:25 Fergon - PO 324 mg DAILY NOEMÍ Administration Furosemide 80 mg 02/16/19 06:00 02/19/19 14:04 Lasix Injection - IVPB 80 mg BID@0600,1400 NOEMÍ Administration Magnesium Oxide 400 mg 02/15/19 22:00 02/19/19 10:16 Mag-Ox - PO 400 mg BID NOEMÍ Administration Metoprolol Succinate 150 mg 02/15/19 22:00 02/19/19 10:16 Toprol Xl - PO 150 mg BID NOEMÍ Administration Valsartan 40 mg 02/16/19 10:00 02/19/19 10:17 Diovan - PO 40 mg DAILY NOEMÍ Administration ASSESSMENT/PLAN: This is an 88 year old woman with a history of chronic diastolic heart failure, atrial fib, GI bleed, chronic venous insufficiency with lymphedema, HTN, hyperlipidemia who presented to the ED with leg swelling and SOB. 1. Acute on chronic diastolic heart failure with right pleural effusion - Continue Lasix IV - CXR shows persistent fluid - Monitor I&O, weight 2. Stage 3 CKD - Creatinine stable 3. Hypokalemia - Improved 4. Atrial fibrillation, permanent - Continue Toprol XL, Eliquis 5. HTN - Continue Diovan, Toprol XL, Lasix 6. Hyperlipidemia - Continue Lipitor 7. Anemia secondary to iron deficiency - Hemoglobin stable - Continue ferrous gluconate 8. Chronic venous insufficiency with lymphedema 9. Obesity with BMI 31.7 10. Disposition - Continue PT - ambulated 50 feet today - May need subacute rehab at discharge Visit type - Emergency Visit Emergency Visit: Yes ED Registration Date: 02/15/19 Care time: The patient presented to the Emergency Department on the above date and was hospitalized for further evaluation of their emergent condition. - New Patient This patient is new to me today: No - Critical Care Critical Care patient: No - Discharge Referral Referred to [facility] Med P.C.: No
[2019-02-19] MEDS: ATORVASTATIN CA 10 MG TABLET (FP) PO SCH (21:18)
[2019-02-20] MEDS: DOCUSATE SODIUM 100 MG CAPSULE (FP) PO SCH ×4 (06:30→22:24)
[2019-02-20] MEDS: FUROSEMIDE 40 MG/4 ML INJECTABLE VIAL IVPB SCH ×2 (06:36→14:47)
[2019-02-20 07:03] LABS: BILIRUBIN,TOTAL 1.1 mg/dL (0.2-1); BLOOD UREA NITROGEN 32.4 mg/dL (7-18); CALCIUM 8.9 mg/dL (8.5-10.1); CREATININE 1.3 mg/dL (0.55-1.3); MAGNESIUM 2.4 mg/dL (1.8-2.4); POTASSIUM 3.9 mmol/L (3.5-5.1); TOT PROT 6.2 g/dl (6.4-8.2)
[2019-02-20 07:23] LABS: HEMATOCRIT 28.1 % (32.4-45.2); HEMOGLOBIN 8.8 GM/dL (10.7-15.3); MCH 24.1 pg (25.7-33.7); MCHC 31.3 g/dl (32.0-36.0); MEAN CELL VOLUME 76.9 fl (80-96); MEAN PLT VOLUME 8.3 fl (7.5-11.1); PLATELET COUNT 233 K/MM3 (134-434); RBC 3.66 M/mm3 (3.60-5.2); RDW 21.1 % (11.6-15.6); WHITE BLOOD COUNT 7.1 K/mm3 (4.0-10.0)
--- NOTE | 2019-02-20 08:54 | PN ---
Progress Note, Physician History of Present Illness: PULMONARY ALERT,FEELING BETTER SITTING UP IN BED,DYSPNEA IMPROVING,-CP - Current Medication List Current Medications: Active Medications Allopurinol (Zyloprim -) 100 mg PO DAILY [facility] Last Admin: 02/19/19 10:17 Dose: 100 mg Apixaban (Eliquis -) 2.5 mg PO BID [facility] Last Admin: 02/19/19 21:17 Dose: 2.5 mg Artificial Tears (Artificial Tears) 1 drop OU BID [facility] Last Admin: 02/19/19 21:20 Dose: 1 drop Atorvastatin Calcium (Lipitor -) 20 mg PO HS [facility] Last Admin: 02/19/19 21:18 Dose: 20 mg Cholecalciferol (Vitamin D3 -) 400 unit PO DAILY [facility] Last Admin: 02/19/19 10:17 Dose: 400 unit Docusate Sodium (Colace -) 100 mg PO TID [facility] Last Admin: 02/20/19 06:30 Dose: Not Given Ferrous Gluconate (Fergon -) 324 mg PO DAILY [facility] Last Admin: 02/19/19 10:25 Dose: 324 mg Furosemide (Lasix Injection -) 80 mg IVPB BID@0600,1400 [facility] Last Admin: 02/20/19 06:36 Dose: 80 mg Magnesium Oxide (Mag-Ox -) 400 mg PO BID [facility] Last Admin: 02/19/19 21:17 Dose: 400 mg Metoprolol Succinate (Toprol Xl -) 150 mg PO BID [facility] Last Admin: 02/19/19 21:17 Dose: 150 mg Valsartan (Diovan -) 40 mg PO DAILY [facility] Last Admin: 02/19/19 10:17 Dose: 40 mg - Objective Vital Signs: Vital Signs Temperature 98.2 F 02/20/19 06:00 Pulse Rate 85 02/20/19 06:00 Respiratory Rate 20 02/20/19 06:00 Blood Pressure 155/86 02/20/19 06:00 O2 Sat by Pulse Oximetry (%) 98 02/19/19 21:00 Constitutional: Yes: Well Nourished, Calm Eyes: Yes: WNL HENT: Yes: WNL Neck: Yes: WNL Cardiovascular: Yes: Pulse Irregular, S1, S2 Respiratory: Yes: Diminished Gastrointestinal: Yes: Normal Bowel Sounds, Soft Extremities: Yes: WNL Edema: Yes Labs: CBC, BMP 02/20/19 05:15 02/20/19 05:15 INR, PTT INR 1.89 (0.83-1.09) H 02/16/19 05:28 Problem List - Problems (1) Acquired lymphedema of leg Code(s): I89.0 - LYMPHEDEMA, NOT ELSEWHERE CLASSIFIED (2) Pleural effusion Code(s): J90 - PLEURAL EFFUSION, NOT ELSEWHERE CLASSIFIED (3) Shortness of breath Code(s): R06.02 - SHORTNESS OF BREATH (4) Weakness Code(s): R53.1 - WEAKNESS (5) Diastolic CHF, acute on chronic Code(s): I50.33 - ACUTE ON CHRONIC DIASTOLIC (CONGESTIVE) HEART FAILURE (6) Blepharitis of both eyes Code(s): H01.003 - UNSPECIFIED BLEPHARITIS RIGHT EYE, UNSPECIFIED EYELID; H01.006 - UNSPECIFIED BLEPHARITIS LEFT EYE, UNSPECIFIED EYELID Qualifiers: Blepharitis type: squamous Eyelid: both upper and lower Qualified Code(s) : H01.02A - Squamous blepharitis right eye, upper and lower eyelids; H01.02B - Squamous blepharitis left eye, upper and lower eyelids (7) History of GI bleed Code(s): Z87.19 - PERSONAL HISTORY OF OTHER DISEASES OF THE DIGESTIVE SYSTEM (8) Pulmonary HTN Code(s): I27.20 - PULMONARY HYPERTENSION, UNSPECIFIED (9) Atrial fibrillation Code(s): I48.91 - UNSPECIFIED ATRIAL FIBRILLATION Qualifiers: Atrial fibrillation type: paroxysmal Qualified Code(s): I48.0 - Paroxysmal atrial fibrillation (10) HTN (hypertension) Code(s): I10 - ESSENTIAL (PRIMARY) HYPERTENSION (11) Hyperlipidemia Code(s): E78.5 - HYPERLIPIDEMIA, UNSPECIFIED Assessment/Plan IMP DYSPNEA IMPROVING ACUTE ON CHRONIC CHF IMPROVING BILATERAL PLEURAL EFFUSIONS SECONDARY TO CHF PULMONARY HTN AFIB LOWER EXT EDEMA H/O CVA H/O BILATERAL FRONTAL CRANIOTOMIES H/O GI BLEED ANEMIA ACUTE ON CHRONIC KIDNEY DISEASE PLAN CONTINUE LASIX ELIQUIS SUPPLEMENTAL O2 DAILY WTS F/U CHEST X-RAYS MONITOR LYTES, 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 H+H DR AJ Problem List - Problems (1) Acquired lymphedema of leg Code(s): I89.0 - LYMPHEDEMA, NOT ELSEWHERE CLASSIFIED (2) Pleural effusion Code(s): J90 - PLEURAL EFFUSION, NOT ELSEWHERE CLASSIFIED (3) Shortness of breath Code(s): R06.02 - SHORTNESS OF BREATH (4) Weakness Code(s): R53.1 - WEAKNESS (5) Diastolic CHF, acute on chronic Code(s): I50.33 - ACUTE ON CHRONIC DIASTOLIC (CONGESTIVE) HEART FAILURE (6) Blepharitis of both eyes Code(s): H01.003 - UNSPECIFIED BLEPHARITIS RIGHT EYE, UNSPECIFIED EYELID; H01.006 - UNSPECIFIED BLEPHARITIS LEFT EYE, UNSPECIFIED EYELID Qualifiers: Blepharitis type: squamous Eyelid: both upper and lower Qualified Code(s) : H01.021 - Squamous blepharitis right upper eyelid; H01.022 - Squamous blepharitis right lower eyelid; H01.022 - Squamous blepharitis right lower eyelid; H01.024 - Squamous blepharitis left upper eyelid; H01.024 - Squamous blepharitis left upper eyelid; H01.025 - Squamous blepharitis left lower eyelid ; H01.025 - Squamous blepharitis left lower eyelid (7) History of GI bleed Code(s): Z87.19 - PERSONAL HISTORY OF OTHER DISEASES OF THE DIGESTIVE SYSTEM (8) Pulmonary HTN Code(s): I27.20 - PULMONARY HYPERTENSION, UNSPECIFIED (9) Atrial fibrillation Code(s): I48.91 - UNSPECIFIED ATRIAL FIBRILLATION Qualifiers: Atrial fibrillation type: paroxysmal Qualified Code(s): I48.0 - Paroxysmal atrial fibrillation (10) HTN (hypertension) Code(s): I10 - ESSENTIAL (PRIMARY) HYPERTENSION (11) Hyperlipidemia Code(s): E78.5 - HYPERLIPIDEMIA, UNSPECIFIED
[2019-02-20] MEDS ORDERED: PT OWN MED DRAWER 7, Y5N ONE (10:39)
[2019-02-20] MEDS: ARTIFICIAL TEARS (POLYVINYL ALCOHOL) OPTH DROPS OU SCH ×2 (11:33→22:32)
[2019-02-20] MEDS: CHOLECALCIFEROL (VIT D3) 400 UNIT (10 MCG) TABLET PO SCH (11:34)
[2019-02-20] MEDS: ALLOPURINOL 100 MG TABLET (FP) PO SCH (11:34)
[2019-02-20] MEDS: VALSARTAN 40 MG TABLET (FP) PO SCH (11:34)
[2019-02-20] MEDS: APIXABAN 2.5 MG TABLET PO SCH ×2 (11:34→22:32)
[2019-02-20] MEDS: MAGNESIUM OXIDE 400 MG TABLET (FP) PO SCH ×2 (11:34→22:32)
[2019-02-20] MEDS: FERROUS GLUCONATE 324 MG TAB (FP) PO SCH (11:34)
--- NOTE | 2019-02-20 12:11 | PN ---
Progress Note (short form) - Note Progress Note: s: no chest pain, palps, dyspnea Current Medications Allopurinol (Zyloprim -) 100 mg PO DAILY [facility] Last Admin: 02/20/19 11:34 Dose: 100 mg Apixaban (Eliquis -) 2.5 mg PO BID [facility] Last Admin: 02/20/19 11:34 Dose: 2.5 mg Artificial Tears (Artificial Tears) 1 drop OU BID [facility] Last Admin: 02/20/19 11:33 Dose: 1 drop Atorvastatin Calcium (Lipitor -) 20 mg PO HS [facility] Last Admin: 02/19/19 21:18 Dose: 20 mg Cholecalciferol (Vitamin D3 -) 400 unit PO DAILY [facility] Last Admin: 02/20/19 11:34 Dose: 400 unit Docusate Sodium (Colace -) 100 mg PO TID [facility] Last Admin: 02/20/19 06:30 Dose: Not Given Ferrous Gluconate (Fergon -) 324 mg PO DAILY [facility] Last Admin: 02/20/19 11:34 Dose: 324 mg Furosemide (Lasix Injection -) 80 mg IVPB BID@0600,1400 [facility] Last Admin: 02/20/19 06:36 Dose: 80 mg Magnesium Oxide (Mag-Ox -) 400 mg PO BID [facility] Last Admin: 02/20/19 11:34 Dose: 400 mg Metoprolol Succinate (Toprol Xl -) 150 mg PO BID [facility] Last Admin: 02/20/19 11:34 Dose: 150 mg Valsartan (Diovan -) 40 mg PO DAILY [facility] Last Admin: 02/20/19 11:34 Dose: 40 mg Vital Signs Period Temp Pulse Resp BP Sys/Polk Pulse Ox Last 24 Hr 97.3 F-98.3 F 83-90 20-20 124-155/57-86 98 Constitutional: Yes: Well Nourished, No Distress Eyes: No: Sclera Icterus HENT: No: Nasal Congestion Neck: No: Decreased ROM Respiratory: Yes: Diminished (R lower half), rales fern Gastrointestinal: Yes: Normal Bowel Sounds. No: Distention, Hepatomegaly, Palpable Mass, Tenderness Cardiovascular: Yes: Pulse Irregular JVD: Yes Heart Sounds: Yes: S1, S2. No: Gallop Murmur: No: Systolic Murmur, Diastolic Murmur Extremities: No: Cold, Cyanosis Edema: 2+ pitting edema fern Integumentary: No: Jaundice Neurological: Yes: Alert, Oriented (x3) Psychiatric: No: Agitated Assessment/Plan ECG: afib, PVC. baseline wander artifact. NSTWAs diffusely--unchanged vs prior CT chest: large R effusion, small L. no pulm edema described Echo 02/14: ([facility]): LV not well seen. RV ??. mild (AV not well seen). mod-sev MR and TR. RVSP 40-50. Echo 06/2017: nl lv fn. mod rve. rv sys function moderately reduced. mild MR, mod TR. sev phtn. trivial pericardial effusion. Echo 2016: low-nl EF 50-55% (beat to beat variability). mod RV dilation, borderline depressed RV fxn. 1+ /MR, Mod TR, mod pHTN (avg TR 42 mmHg), Cath 2006: LVEDP 18, EF 60%. pRCA mild, pLAD mild, mLAD 50-60%, pLCx mild, OM1 mild. CT head: R occipital lobe infarct, likely old Carotid sono 2018: rt common carotid with mod plaque 50-69%. moderate plaque on left with borderline stenosis. 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, R pleural effusion - not taking torsemide as prescribed at home - was prescribed 40 mg daily and taking 20 mg most days - weight down, Cr stable - continue lasix 80 mg IV BID - monitor R effusion - if not responding to diuretics may need thoracentesis - monitor cr, lytes, daily weights - cont home metoprolol, valsartan Afib - stable, continue metoprolol , eliquis CKD: -baseline creat 1.0-1.5 -renal fxn stable here HTN: - stable, cont home meds carotid atherosclerosis, - previously declined further imaging w/u as outpt - cont statin
--- NOTE | 2019-02-20 16:50 | PN ---
Physical Exam: SUBJECTIVE: Patient seen and examined. She has no complaints. OBJECTIVE: Vital Signs Period Temp Pulse Resp BP Sys/Polk Pulse Ox Last 24 Hr 97.3 F-98.3 F 81-90 20-22 112-155/56-86 98 GENERAL: The patient is awake, alert, and fully oriented, dyspneic while speaking. LUNGS: Clear to auscultation bilaterally with decreased breath sounds at right base. HEART: Irregularly irregular. ABDOMEN: Obese, soft, nontender, nondistended, normoactive bowel sounds, no guarding, no rebound, no hepatosplenomegaly, no masses. EXTREMITIES: 2+ pulses, warm, well-perfused, 2+ edema. Laboratory Results - last 24 hr 02/20/19 02/20/19 05:15 05:15 WBC 7.1 RBC 3.66 Hgb 8.8 L Hct 28.1 L MCV 76.9 L MCH 24.1 L MCHC 31.3 L RDW 21.1 H Plt Count 233 MPV 8.3 Sodium 142 Potassium 3.9 Chloride 98 Carbon Dioxide 38 H Anion Gap 6 L BUN 32.4 H Creatinine 1.3 Est GFR (CKD-EPI)AfAm 42.12 Est GFR (CKD-EPI)NonAf 36.34 Random Glucose 103 Calcium 8.9 Magnesium 2.4 Total Bilirubin 1.1 H AST 23 ALT 25 Alkaline Phosphatase 203 H Total Protein 6.2 L Albumin 3.0 L Active Medications Generic Name Dose Route Start Last Admin Trade Name Freq PRN Reason Stop Dose Admin Allopurinol 100 mg 02/16/19 10:00 02/20/19 11:34 Zyloprim - PO 100 mg DAILY NOEMÍ Administration Apixaban 2.5 mg 02/15/19 22:00 02/20/19 11:34 Eliquis - PO 2.5 mg BID NOEMÍ Administration Artificial Tears 1 drop 02/15/19 22:00 02/20/19 11:33 Artificial Tears OU 1 drop BID NOEMÍ Administration Atorvastatin Calcium 20 mg 02/15/19 22:00 02/19/19 21:18 Lipitor - PO 20 mg HS NOEMÍ Administration Cholecalciferol 400 unit 02/16/19 10:00 02/20/19 11:34 Vitamin D3 - PO 400 unit DAILY NO[facility]Í Administration Docusate Sodium 100 mg 02/17/19 14:00 02/20/19 14:54 Colace - PO Not Given TID NOEMÍ Ferrous Gluconate 324 mg 02/16/19 10:00 02/20/19 11:34 Fergon - PO 324 mg DAILY NO[facility]Í Administration Furosemide 80 mg 02/16/19 06:00 02/20/19 14:47 Lasix Injection - IVPB 80 mg BID@0600,1400 NO[facility]Í Administration Magnesium Oxide 400 mg 02/15/19 22:00 02/20/19 11:34 Mag-Ox - PO 400 mg BID NO[facility]Í Administration Metoprolol Succinate 150 mg 02/15/19 22:00 02/20/19 11:34 Toprol Xl - PO 150 mg BID NO[facility]Í Administration Valsartan 40 mg 02/16/19 10:00 02/20/19 11:34 Diovan - PO 40 mg DAILY NO[facility]Í Administration ASSESSMENT/PLAN: This is an 88 year old woman with a history of chronic diastolic heart failure, atrial fib, GI bleed, chronic venous insufficiency with lymphedema, HTN, hyperlipidemia who presented to the ED with leg swelling and SOB. 1. Acute on chronic diastolic heart failure with right pleural effusion - Improving - Continue Lasix IV - CXR yesterday shows persistent fluid - Monitor I&O, weight 2. Stage 3 CKD - Creatinine stable 3. Hypokalemia - Improved 4. Atrial fibrillation, permanent - Continue Toprol XL, Eliquis 5. HTN - Continue Diovan, Toprol XL, Lasix 6. Hyperlipidemia - Continue Lipitor 7. Anemia secondary to iron deficiency - Hemoglobin stable - Continue ferrous gluconate 8. Chronic venous insufficiency with lymphedema 9. Obesity with BMI 31.7 10. Disposition - Continue PT - May need subacute rehab at discharge Visit type - Emergency Visit Emergency Visit: Yes ED Registration Date: 02/15/19 Care time: The patient presented to the Emergency Department on the above date and was hospitalized for further evaluation of their emergent condition. - New Patient This patient is new to me today: No - Critical Care Critical Care patient: No - Discharge Referral Referred to [facility] Med P.C.: No
[2019-02-20] MEDS: ATORVASTATIN CA 10 MG TABLET (FP) PO SCH (22:32)
[2019-02-21] MEDS: DOCUSATE SODIUM 100 MG CAPSULE (FP) PO SCH ×3 (05:59→22:08)
[2019-02-21] MEDS: FUROSEMIDE 40 MG/4 ML INJECTABLE VIAL IVPB SCH ×2 (06:01→14:19)
[2019-02-21 06:49] LABS: HEMATOCRIT 26.6 % (32.4-45.2); HEMOGLOBIN 8.3 GM/dL (10.7-15.3); MCH 23.9 pg (25.7-33.7); MCHC 31.4 g/dl (32.0-36.0); MEAN CELL VOLUME 76.3 fl (80-96); MEAN PLT VOLUME 8.2 fl (7.5-11.1); PLATELET COUNT 214 K/MM3 (134-434); RBC 3.49 M/mm3 (3.60-5.2); RDW 21.3 % (11.6-15.6); WHITE BLOOD COUNT 7.4 K/mm3 (4.0-10.0)
[2019-02-21 07:04] LABS: BLOOD UREA NITROGEN 37.8 mg/dL (7-18); CALCIUM 8.9 mg/dL (8.5-10.1); CREATININE 1.4 mg/dL (0.55-1.3); POTASSIUM 3.7 mmol/L (3.5-5.1)
--- NOTE | 2019-02-21 09:05 | PN ---
Progress Note, Physician History of Present Illness: PULMONARY ALERT,COMFORTABLE,-RESP DISTRESS, - Current Medication List Current Medications: Active Medications Allopurinol (Zyloprim -) 100 mg PO DAILY [facility] Last Admin: 02/20/19 11:34 Dose: 100 mg Apixaban (Eliquis -) 2.5 mg PO BID [facility] Last Admin: 02/20/19 22:32 Dose: 2.5 mg Artificial Tears (Artificial Tears) 1 drop OU BID [facility] Last Admin: 02/20/19 22:32 Dose: 1 drop Atorvastatin Calcium (Lipitor -) 20 mg PO HS [facility] Last Admin: 02/20/19 22:32 Dose: 20 mg Cholecalciferol (Vitamin D3 -) 400 unit PO DAILY [facility] Last Admin: 02/20/19 11:34 Dose: 400 unit Docusate Sodium (Colace -) 100 mg PO TID [facility] Last Admin: 02/21/19 05:59 Dose: Not Given Ferrous Gluconate (Fergon -) 324 mg PO DAILY [facility] Last Admin: 02/20/19 11:34 Dose: 324 mg Furosemide (Lasix Injection -) 80 mg IVPB BID@0600,1400 [facility] Last Admin: 02/21/19 06:01 Dose: 80 mg Magnesium Oxide (Mag-Ox -) 400 mg PO BID [facility] Last Admin: 02/20/19 22:32 Dose: 400 mg Metoprolol Succinate (Toprol Xl -) 150 mg PO BID [facility] Last Admin: 02/20/19 22:32 Dose: 150 mg Valsartan (Diovan -) 40 mg PO DAILY [facility] Last Admin: 02/20/19 11:34 Dose: 40 mg - Objective Vital Signs: Vital Signs Temperature 98.1 F 02/21/19 06:00 Pulse Rate 84 02/21/19 06:00 Respiratory Rate 19 02/21/19 06:00 Blood Pressure 143/70 02/21/19 06:00 O2 Sat by Pulse Oximetry (%) 97 02/20/19 21:00 Constitutional: Yes: Well Nourished, Calm Eyes: Yes: WNL HENT: Yes: WNL Neck: Yes: WNL Cardiovascular: Yes: Pulse Irregular, S1, S2 Respiratory: Yes: Diminished Gastrointestinal: Yes: Normal Bowel Sounds, Soft Extremities: Yes: WNL Edema: Yes Labs: CBC, BMP 02/21/19 05:10 02/21/19 05:10 INR, PTT INR 1.89 (0.83-1.09) H 02/16/19 05:28 Problem List - Problems (1) Acquired lymphedema of leg Code(s): I89.0 - LYMPHEDEMA, NOT ELSEWHERE CLASSIFIED (2) Pleural effusion Code(s): J90 - PLEURAL EFFUSION, NOT ELSEWHERE CLASSIFIED (3) Shortness of breath Code(s): R06.02 - SHORTNESS OF BREATH (4) Weakness Code(s): R53.1 - WEAKNESS (5) Diastolic CHF, acute on chronic Code(s): I50.33 - ACUTE ON CHRONIC DIASTOLIC (CONGESTIVE) HEART FAILURE (6) Blepharitis of both eyes Code(s): H01.003 - UNSPECIFIED BLEPHARITIS RIGHT EYE, UNSPECIFIED EYELID; H01.006 - UNSPECIFIED BLEPHARITIS LEFT EYE, UNSPECIFIED EYELID Qualifiers: Blepharitis type: squamous Eyelid: both upper and lower Qualified Code(s) : H01.02A - Squamous blepharitis right eye, upper and lower eyelids; H01.02B - Squamous blepharitis left eye, upper and lower eyelids (7) History of GI bleed Code(s): Z87.19 - PERSONAL HISTORY OF OTHER DISEASES OF THE DIGESTIVE SYSTEM (8) Pulmonary HTN Code(s): I27.20 - PULMONARY HYPERTENSION, UNSPECIFIED (9) Atrial fibrillation Code(s): I48.91 - UNSPECIFIED ATRIAL FIBRILLATION Qualifiers: Atrial fibrillation type: paroxysmal Qualified Code(s): I48.0 - Paroxysmal atrial fibrillation (10) HTN (hypertension) Code(s): I10 - ESSENTIAL (PRIMARY) HYPERTENSION (11) Hyperlipidemia Code(s): E78.5 - HYPERLIPIDEMIA, UNSPECIFIED Assessment/Plan IMP DYSPNEA IMPROVED ACUTE ON CHRONIC CHF IMPROVING BILATERAL PLEURAL EFFUSIONS SECONDARY TO CHF PULMONARY HTN AFIB LOWER EXT EDEMA H/O CVA H/O BILATERAL FRONTAL CRANIOTOMIES H/O GI BLEED ANEMIA ACUTE ON CHRONIC KIDNEY DISEASE PLAN LASIX ELIQUIS SUPPLEMENTAL O2 DAILY WTS MONITOR LYTES, 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 H+H DR AJ Problem List - Problems (1) Acquired lymphedema of leg Code(s): I89.0 - LYMPHEDEMA, NOT ELSEWHERE CLASSIFIED (2) Pleural effusion Code(s): J90 - PLEURAL EFFUSION, NOT ELSEWHERE CLASSIFIED (3) Shortness of breath Code(s): R06.02 - SHORTNESS OF BREATH (4) Weakness Code(s): R53.1 - WEAKNESS (5) Diastolic CHF, acute on chronic Code(s): I50.33 - ACUTE ON CHRONIC DIASTOLIC (CONGESTIVE) HEART FAILURE (6) Blepharitis of both eyes Code(s): H01.003 - UNSPECIFIED BLEPHARITIS RIGHT EYE, UNSPECIFIED EYELID; H01.006 - UNSPECIFIED BLEPHARITIS LEFT EYE, UNSPECIFIED EYELID Qualifiers: Blepharitis type: squamous Eyelid: both upper and lower Qualified Code(s) : H01.021 - Squamous blepharitis right upper eyelid; H01.022 - Squamous blepharitis right lower eyelid; H01.022 - Squamous blepharitis right lower eyelid; H01.024 - Squamous blepharitis left upper eyelid; H01.024 - Squamous blepharitis left upper eyelid; H01.025 - Squamous blepharitis left lower eyelid ; H01.025 - Squamous blepharitis left lower eyelid (7) History of GI bleed Code(s): Z87.19 - PERSONAL HISTORY OF OTHER DISEASES OF THE DIGESTIVE SYSTEM (8) Pulmonary HTN Code(s): I27.20 - PULMONARY HYPERTENSION, UNSPECIFIED (9) Atrial fibrillation Code(s): I48.91 - UNSPECIFIED ATRIAL FIBRILLATION Qualifiers: Atrial fibrillation type: paroxysmal Qualified Code(s): I48.0 - Paroxysmal atrial fibrillation (10) HTN (hypertension) Code(s): I10 - ESSENTIAL (PRIMARY) HYPERTENSION (11) Hyperlipidemia Code(s): E78.5 - HYPERLIPIDEMIA, UNSPECIFIED
[2019-02-21] MEDS ORDERED: PT OWN MED DRAWER 7, Y5N ONE (10:53)
[2019-02-21] MEDS: VALSARTAN 40 MG TABLET (FP) PO SCH (11:44)
[2019-02-21] MEDS: ARTIFICIAL TEARS (POLYVINYL ALCOHOL) OPTH DROPS OU SCH ×2 (11:44→22:08)
[2019-02-21] MEDS: FERROUS GLUCONATE 324 MG TAB (FP) PO SCH (11:44)
[2019-02-21] MEDS: MAGNESIUM OXIDE 400 MG TABLET (FP) PO SCH ×2 (11:44→22:09)
[2019-02-21] MEDS: CHOLECALCIFEROL (VIT D3) 400 UNIT (10 MCG) TABLET PO SCH (11:44)
[2019-02-21] MEDS: ALLOPURINOL 100 MG TABLET (FP) PO SCH (11:44)
[2019-02-21] MEDS: APIXABAN 2.5 MG TABLET PO SCH ×2 (11:44→22:09)
--- NOTE | 2019-02-21 11:47 | PN ---
Physical Exam: SUBJECTIVE: Patient seen and examined. She is comfortable sitting in a chair. She has no complaints. OBJECTIVE: Vital Signs Period Temp Pulse Resp BP Sys/Polk Pulse Ox Last 24 Hr 97.3 F-98.5 F 69-86 19-20 95-143/51-70 97 GENERAL: The patient is awake, alert, and fully oriented, dyspneic while speaking. LUNGS: Clear to auscultation bilaterally with decreased breath sounds at right base. HEART: Irregularly irregular. ABDOMEN: Obese, soft, nontender, nondistended, normoactive bowel sounds, no guarding, no rebound, no hepatosplenomegaly, no masses. EXTREMITIES: 2+ pulses, warm, well-perfused, 2+ edema. Laboratory Results - last 24 hr 02/21/19 02/21/19 05:10 05:10 WBC 7.4 RBC 3.49 L Hgb 8.3 L Hct 26.6 L MCV 76.3 L MCH 23.9 L MCHC 31.4 L RDW 21.3 H Plt Count 214 MPV 8.2 Sodium 142 Potassium 3.7 Chloride 99 Carbon Dioxide 37 H Anion Gap 7 L BUN 37.8 H Creatinine 1.4 H Est GFR (CKD-EPI)AfAm 38.51 Est GFR (CKD-EPI)NonAf 33.23 Random Glucose 85 Calcium 8.9 Active Medications Generic Name Dose Route Start Last Admin Trade Name Freq PRN Reason Stop Dose Admin Allopurinol 100 mg 02/16/19 10:00 02/21/19 11:44 Zyloprim - PO 100 mg DAILY NOEMÍ Administration Apixaban 2.5 mg 02/15/19 22:00 02/21/19 11:44 Eliquis - PO 2.5 mg BID NOEMÍ Administration Artificial Tears 1 drop 02/15/19 22:00 02/21/19 11:44 Artificial Tears OU 1 drop BID NOEMÍ Administration Atorvastatin Calcium 20 mg 02/15/19 22:00 02/20/19 22:32 Lipitor - PO 20 mg HS NOEMÍ Administration Cholecalciferol 400 unit 02/16/19 10:00 02/21/19 11:44 Vitamin D3 - PO 400 unit DAILY NO[facility]Í Administration Docusate Sodium 100 mg 02/17/19 14:00 02/21/19 05:59 Colace - PO Not Given TID [facility] Ferrous Gluconate 324 mg 02/16/19 10:00 02/21/19 11:44 Fergon - PO 324 mg DAILY NOEMÍ Administration Furosemide 80 mg 02/16/19 06:00 02/21/19 06:01 Lasix Injection - IVPB 80 mg BID@0600,1400 NOEMÍ Administration Magnesium Oxide 400 mg 02/15/19 22:00 02/21/19 11:44 Mag-Ox - PO 400 mg BID NOEMÍ Administration Metoprolol Succinate 150 mg 02/15/19 22:00 02/21/19 11:44 Toprol Xl - PO 150 mg BID NOEMÍ Administration Valsartan 40 mg 02/16/19 10:00 02/21/19 11:44 Diovan - PO 40 mg DAILY NOEMÍ Administration ASSESSMENT/PLAN: This is an 88 year old woman with a history of chronic diastolic heart failure, atrial fib, GI bleed, chronic venous insufficiency with lymphedema, HTN, hyperlipidemia who presented to the ED with leg swelling and SOB. 1. Acute on chronic diastolic heart failure with right pleural effusion - Improving - Continue Lasix IV - Monitor I&O, weight 2. Stage 3 CKD - Creatinine slightly higher today - will continue to follow 3. Hypokalemia - Improved 4. Atrial fibrillation, permanent - Continue Toprol XL, Eliquis 5. HTN - Continue Diovan, Toprol XL, Lasix 6. Hyperlipidemia - Continue Lipitor 7. Anemia secondary to iron deficiency - Hemoglobin slightly lower today - will continue to monitor - Continue ferrous gluconate 8. Chronic venous insufficiency with lymphedema 9. Obesity with BMI 31.7 10. Disposition - Continue PT - May need subacute rehab at discharge Visit type - Emergency Visit Emergency Visit: Yes ED Registration Date: 02/15/19 Care time: The patient presented to the Emergency Department on the above date and was hospitalized for further evaluation of their emergent condition. - New Patient This patient is new to me today: No - Critical Care Critical Care patient: No - Discharge Referral Referred to [facility] Med P.C.: No
--- NOTE | 2019-02-21 12:14 | PN ---
Progress Note (short form) - Note Progress Note: s: no chest pain, palps, dyspnea Current Medications Allopurinol (Zyloprim -) 100 mg PO DAILY [facility] Last Admin: 02/20/19 11:34 Dose: 100 mg Apixaban (Eliquis -) 2.5 mg PO BID [facility] Last Admin: 02/20/19 11:34 Dose: 2.5 mg Artificial Tears (Artificial Tears) 1 drop OU BID [facility] Last Admin: 02/20/19 11:33 Dose: 1 drop Atorvastatin Calcium (Lipitor -) 20 mg PO HS [facility] Last Admin: 02/19/19 21:18 Dose: 20 mg Cholecalciferol (Vitamin D3 -) 400 unit PO DAILY [facility] Last Admin: 02/20/19 11:34 Dose: 400 unit Docusate Sodium (Colace -) 100 mg PO TID [facility] Last Admin: 02/20/19 06:30 Dose: Not Given Ferrous Gluconate (Fergon -) 324 mg PO DAILY [facility] Last Admin: 02/20/19 11:34 Dose: 324 mg Furosemide (Lasix Injection -) 80 mg IVPB BID@0600,1400 [facility] Last Admin: 02/20/19 06:36 Dose: 80 mg Magnesium Oxide (Mag-Ox -) 400 mg PO BID [facility] Last Admin: 02/20/19 11:34 Dose: 400 mg Metoprolol Succinate (Toprol Xl -) 150 mg PO BID [facility] Last Admin: 02/20/19 11:34 Dose: 150 mg Valsartan (Diovan -) 40 mg PO DAILY [facility] Last Admin: 02/20/19 11:34 Dose: 40 mg Vital Signs Period Temp Pulse Resp BP Sys/Polk Pulse Ox Last 24 Hr 97.3 F-98.3 F 83-90 20-20 124-155/57-86 98 Constitutional: Yes: Well Nourished, No Distress Eyes: No: Sclera Icterus HENT: No: Nasal Congestion Neck: No: Decreased ROM Respiratory: Yes: Diminished (R lower half), rales fern Gastrointestinal: Yes: Normal Bowel Sounds. No: Distention, Hepatomegaly, Palpable Mass, Tenderness Cardiovascular: Yes: Pulse Irregular JVD: Yes Heart Sounds: Yes: S1, S2. No: Gallop Murmur: No: Systolic Murmur, Diastolic Murmur Extremities: No: Cold, Cyanosis Edema: 2+ pitting edema fern Integumentary: No: Jaundice Neurological: Yes: Alert, Oriented (x3) Psychiatric: No: Agitated Assessment/Plan ECG: afib, PVC. baseline wander artifact. NSTWAs diffusely--unchanged vs prior CT chest: large R effusion, small L. no pulm edema described Echo 02/14: ([facility]): LV not well seen. RV ??. mild (AV not well seen). mod-sev MR and TR. RVSP 40-50. Echo 06/2017: nl lv fn. mod rve. rv sys function moderately reduced. mild MR, mod TR. sev phtn. trivial pericardial effusion. Echo 2016: low-nl EF 50-55% (beat to beat variability). mod RV dilation, borderline depressed RV fxn. 1+ /MR, Mod TR, mod pHTN (avg TR 42 mmHg), Cath 2006: LVEDP 18, EF 60%. pRCA mild, pLAD mild, mLAD 50-60%, pLCx mild, OM1 mild. CT head: R occipital lobe infarct, likely old Carotid sono 2018: rt common carotid with mod plaque 50-69%. moderate plaque on left with borderline stenosis. 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, R pleural effusion - not taking torsemide as prescribed at home - was prescribed 40 mg daily and taking 20 mg most days - weight down - continue lasix 80 mg IV BID - monitor R effusion - if not responding to diuretics may need thoracentesis, CXR ordered for AM - monitor cr, lytes, daily weights - cont home metoprolol, valsartan Afib - stable, continue metoprolol , eliquis CKD: -baseline creat 1.0-1.5 -renal fxn stable here HTN: - stable, cont home meds carotid atherosclerosis, - previously declined further imaging w/u as outpt - cont statin
[2019-02-21] MEDS: ATORVASTATIN CA 10 MG TABLET (FP) PO SCH (22:09)
[2019-02-22] MEDS: DOCUSATE SODIUM 100 MG CAPSULE (FP) PO SCH ×2 (06:45→21:50)
[2019-02-22] MEDS: FUROSEMIDE 40 MG/4 ML INJECTABLE VIAL IVPB SCH (06:47)
[2019-02-22 07:08] LABS: HEMATOCRIT 26.7 % (32.4-45.2); HEMOGLOBIN 8.4 GM/dL (10.7-15.3); MCH 24.2 pg (25.7-33.7); MCHC 31.5 g/dl (32.0-36.0); MEAN CELL VOLUME 76.6 fl (80-96); MEAN PLT VOLUME 8.2 fl (7.5-11.1); PLATELET COUNT 214 K/MM3 (134-434); RBC 3.48 M/mm3 (3.60-5.2); RDW 21.4 % (11.6-15.6); WHITE BLOOD COUNT 6.7 K/mm3 (4.0-10.0)
[2019-02-22 07:11] LABS: BLOOD UREA NITROGEN 38.7 mg/dL (7-18); CALCIUM 8.8 mg/dL (8.5-10.1); CREATININE 1.3 mg/dL (0.55-1.3); MAGNESIUM 2.5 mg/dL (1.8-2.4); POTASSIUM 3.8 mmol/L (3.5-5.1)
[2019-02-22] MEDS ORDERED: PT OWN MED DRAWER 7, Y5N ONE (09:42)
[2019-02-22] MEDS: FERROUS GLUCONATE 324 MG TAB (FP) PO SCH (09:57)
[2019-02-22] MEDS: ALLOPURINOL 100 MG TABLET (FP) PO SCH (09:57)
[2019-02-22] MEDS: MAGNESIUM OXIDE 400 MG TABLET (FP) PO SCH (09:57)
[2019-02-22] MEDS: APIXABAN 2.5 MG TABLET PO SCH ×2 (09:57→21:57)
[2019-02-22] MEDS: CHOLECALCIFEROL (VIT D3) 400 UNIT (10 MCG) TABLET PO SCH (09:58)
[2019-02-22] MEDS: VALSARTAN 40 MG TABLET (FP) PO SCH (09:58)
--- NOTE | 2019-02-22 09:58 | PN ---
Progress Note, Physician Chief Complaint: seen and examined on 4 W No distress Sitting in chair History of Present Illness: weight has trended down Still with edema TELE: Controlled AF BP at baseline - Current Medication List Current Medications: Active Medications Allopurinol (Zyloprim -) 100 mg PO DAILY [facility] Last Admin: 02/21/19 11:44 Dose: 100 mg Apixaban (Eliquis -) 2.5 mg PO BID [facility] Last Admin: 02/21/19 22:09 Dose: 2.5 mg Artificial Tears (Artificial Tears) 1 drop OU BID [facility] Last Admin: 02/21/19 22:08 Dose: 1 drop Atorvastatin Calcium (Lipitor -) 20 mg PO HS [facility] Last Admin: 02/21/19 22:09 Dose: 20 mg Cholecalciferol (Vitamin D3 -) 400 unit PO DAILY [facility] Last Admin: 02/21/19 11:44 Dose: 400 unit Docusate Sodium (Colace -) 100 mg PO TID [facility] Last Admin: 02/22/19 06:45 Dose: Not Given Ferrous Gluconate (Fergon -) 324 mg PO DAILY [facility] Last Admin: 02/21/19 11:44 Dose: 324 mg Furosemide (Lasix Injection -) 80 mg IVPB BID@0600,1400 [facility] Last Admin: 02/22/19 06:47 Dose: 80 mg Magnesium Oxide (Mag-Ox -) 400 mg PO BID [facility] Last Admin: 02/21/19 22:09 Dose: 400 mg Metoprolol Succinate (Toprol Xl -) 150 mg PO BID [facility] Last Admin: 02/21/19 22:09 Dose: 150 mg Valsartan (Diovan -) 40 mg PO DAILY [facility] Last Admin: 02/21/19 11:44 Dose: 40 mg - Objective Vital Signs: Vital Signs Temperature 97.4 F L 02/22/19 09:24 Pulse Rate 74 02/22/19 09:24 Respiratory Rate 18 02/22/19 09:24 Blood Pressure 108/53 L 02/22/19 09:24 O2 Sat by Pulse Oximetry (%) 95 02/22/19 09:00 Constitutional: Yes: No Distress Cardiovascular: Yes: Pulse Irregular Respiratory: Yes: Other (clear, no rales.) Gastrointestinal: Yes: Soft Edema: Yes Edema: LLE: 2+, RLE: 2+ Neurological: Yes: Alert, Oriented Labs: CBC, BMP 02/22/19 05:20 02/22/19 05:20 INR, PTT INR 1.89 (0.83-1.09) H 02/16/19 05:28 Laboratory Tests 02/22/19 02/22/19 05:20 05:20 WBC 6.7 Hgb 8.4 L Plt Count 214 Sodium 142 Potassium 3.8 Creatinine 1.3 Magnesium 2.5 H - ....Imaging EKG: Image Reviewed Assessment/Plan DATA: CT chest: large R effusion, small L. no pulm edema described Echo 02/14: ([facility]): LV not well seen. RV ??. mild (AV not well seen). mod-sev MR and TR. RVSP 40-50. Echo 06/2017: nl lv fn. mod rve. rv sys function moderately reduced. mild MR, mod TR. sev phtn. trivial pericardial effusion. Echo 2016: low-nl EF 50-55% (beat to beat variability). mod RV dilation, borderline depressed RV fxn. 1+ /MR, Mod TR, mod pHTN (avg TR 42 mmHg), Cath 2006: LVEDP 18, EF 60%. pRCA mild, pLAD mild, mLAD 50-60%, pLCx mild, OM1 mild. CT head: R occipital lobe infarct, likely old Carotid sono 2018: rt common carotid with mod plaque 50-69%. moderate plaque on left with borderline stenosis. echo 06/2018 nl LV function, mildly dilated LA/RA, mild MR, mod to severe TR tele: afib rate controlled Acute on chronic diastolic CHF with pHTN/RV failure, R pleural effusion: - poor compliance w/ home Torsemide - weight down - continue lasix 80 mg IV BID with plan to scale back starting - monitor R effusion - if not responding to diuretics may need thoracentesis, f/ u CXR today - monitor cr, lytes, daily weights - cont home metoprolol, valsartan -Repeat echo today Afib: - stable, continue metoprolol , eliquis adjusted for age/weight and renal function. CKD: -baseline creat 1.0-1.5 -renal fxn stable here HTN: - stable, cont home meds Carotid Atherosclerosis: - previously declined further imaging w/u as outpt - cont statin
[2019-02-22] MEDS: ARTIFICIAL TEARS (POLYVINYL ALCOHOL) OPTH DROPS OU SCH ×2 (10:02→21:56)
--- NOTE | 2019-02-22 10:26 | PN ---
Progress Note, Physician History of Present Illness: pulmonary alert,oob-chair,comfortable,dyspnea improved - Current Medication List Current Medications: Active Medications Allopurinol (Zyloprim -) 100 mg PO DAILY [facility] Last Admin: 02/22/19 09:57 Dose: 100 mg Apixaban (Eliquis -) 2.5 mg PO BID [facility] Last Admin: 02/22/19 09:57 Dose: 2.5 mg Artificial Tears (Artificial Tears) 1 drop OU BID [facility] Last Admin: 02/22/19 10:02 Dose: 1 drop Atorvastatin Calcium (Lipitor -) 20 mg PO HS [facility] Last Admin: 02/21/19 22:09 Dose: 20 mg Cholecalciferol (Vitamin D3 -) 400 unit PO DAILY [facility] Last Admin: 02/22/19 09:58 Dose: 400 unit Docusate Sodium (Colace -) 100 mg PO TID [facility] Last Admin: 02/22/19 06:45 Dose: Not Given Ferrous Gluconate (Fergon -) 324 mg PO DAILY [facility] Last Admin: 02/22/19 09:57 Dose: 324 mg Furosemide (Lasix Injection -) 80 mg IVPB BID@0600,1400 [facility] Last Admin: 02/22/19 06:47 Dose: 80 mg Magnesium Oxide (Mag-Ox -) 400 mg PO BID [facility] Last Admin: 02/22/19 09:57 Dose: 400 mg Metoprolol Succinate (Toprol Xl -) 150 mg PO BID [facility] Last Admin: 02/22/19 09:57 Dose: 150 mg Valsartan (Diovan -) 40 mg PO DAILY [facility] Last Admin: 02/22/19 09:58 Dose: 40 mg - Objective Vital Signs: Vital Signs Temperature 97.4 F L 02/22/19 09:24 Pulse Rate 74 02/22/19 09:24 Respiratory Rate 18 02/22/19 09:24 Blood Pressure 108/53 L 02/22/19 09:24 O2 Sat by Pulse Oximetry (%) 95 02/22/19 09:00 Constitutional: Yes: Well Nourished, Calm Eyes: Yes: WNL HENT: Yes: WNL Neck: Yes: WNL Cardiovascular: Yes: Pulse Irregular, S1, S2 Respiratory: Yes: Diminished Gastrointestinal: Yes: Normal Bowel Sounds, Soft Extremities: Yes: WNL Edema: Yes Labs: CBC, BMP 02/22/19 05:20 02/22/19 05:20 INR, PTT INR 1.89 (0.83-1.09) H 02/16/19 05:28 Problem List - Problems (1) Acquired lymphedema of leg Code(s): I89.0 - LYMPHEDEMA, NOT ELSEWHERE CLASSIFIED (2) Pleural effusion Code(s): J90 - PLEURAL EFFUSION, NOT ELSEWHERE CLASSIFIED (3) Shortness of breath Code(s): R06.02 - SHORTNESS OF BREATH (4) Weakness Code(s): R53.1 - WEAKNESS (5) Diastolic CHF, acute on chronic Code(s): I50.33 - ACUTE ON CHRONIC DIASTOLIC (CONGESTIVE) HEART FAILURE (6) Blepharitis of both eyes Code(s): H01.003 - UNSPECIFIED BLEPHARITIS RIGHT EYE, UNSPECIFIED EYELID; H01.006 - UNSPECIFIED BLEPHARITIS LEFT EYE, UNSPECIFIED EYELID Qualifiers: Blepharitis type: squamous Eyelid: both upper and lower Qualified Code(s) : H01.02A - Squamous blepharitis right eye, upper and lower eyelids; H01.02B - Squamous blepharitis left eye, upper and lower eyelids (7) History of GI bleed Code(s): Z87.19 - PERSONAL HISTORY OF OTHER DISEASES OF THE DIGESTIVE SYSTEM (8) Pulmonary HTN Code(s): I27.20 - PULMONARY HYPERTENSION, UNSPECIFIED (9) Atrial fibrillation Code(s): I48.91 - UNSPECIFIED ATRIAL FIBRILLATION Qualifiers: Atrial fibrillation type: paroxysmal Qualified Code(s): I48.0 - Paroxysmal atrial fibrillation (10) HTN (hypertension) Code(s): I10 - ESSENTIAL (PRIMARY) HYPERTENSION (11) Hyperlipidemia Code(s): E78.5 - HYPERLIPIDEMIA, UNSPECIFIED Assessment/Plan IMP DYSPNEA IMPROVED ACUTE ON CHRONIC CHF IMPROVING BILATERAL PLEURAL EFFUSIONS SECONDARY TO CHF PULMONARY HTN AFIB LOWER EXT EDEMA H/O CVA H/O BILATERAL FRONTAL CRANIOTOMIES H/O GI BLEED ANEMIA ACUTE ON CHRONIC KIDNEY DISEASE PLAN LASIX ELIQUIS SUPPLEMENTAL O2 DAILY WTS MONITOR LYTES, 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 H+H CHEST X-RAY TODAY DR AJ Problem List - Problems (1) Acquired lymphedema of leg Code(s): I89.0 - LYMPHEDEMA, NOT ELSEWHERE CLASSIFIED (2) Pleural effusion Code(s): J90 - PLEURAL EFFUSION, NOT ELSEWHERE CLASSIFIED (3) Shortness of breath Code(s): R06.02 - SHORTNESS OF BREATH (4) Weakness Code(s): R53.1 - WEAKNESS (5) Diastolic CHF, acute on chronic Code(s): I50.33 - ACUTE ON CHRONIC DIASTOLIC (CONGESTIVE) HEART FAILURE (6) Blepharitis of both eyes Code(s): H01.003 - UNSPECIFIED BLEPHARITIS RIGHT EYE, UNSPECIFIED EYELID; H01.006 - UNSPECIFIED BLEPHARITIS LEFT EYE, UNSPECIFIED EYELID Qualifiers: Blepharitis type: squamous Eyelid: both upper and lower Qualified Code(s) : H01.021 - Squamous blepharitis right upper eyelid; H01.022 - Squamous blepharitis right lower eyelid; H01.022 - Squamous blepharitis right lower eyelid; H01.024 - Squamous blepharitis left upper eyelid; H01.024 - Squamous blepharitis left upper eyelid; H01.025 - Squamous blepharitis left lower eyelid ; H01.025 - Squamous blepharitis left lower eyelid (7) History of GI bleed Code(s): Z87.19 - PERSONAL HISTORY OF OTHER DISEASES OF THE DIGESTIVE SYSTEM (8) Pulmonary HTN Code(s): I27.20 - PULMONARY HYPERTENSION, UNSPECIFIED (9) Atrial fibrillation Code(s): I48.91 - UNSPECIFIED ATRIAL FIBRILLATION Qualifiers: Atrial fibrillation type: paroxysmal Qualified Code(s): I48.0 - Paroxysmal atrial fibrillation (10) HTN (hypertension) Code(s): I10 - ESSENTIAL (PRIMARY) HYPERTENSION (11) Hyperlipidemia Code(s): E78.5 - HYPERLIPIDEMIA, UNSPECIFIED
--- NOTE | 2019-02-22 16:39 | ECHO ---
Name: HILDA NAVARRO Exam:Adult Echocardiogram Study Date: 02/22/2019 02:57 PM Age: 88 yrs Reason For Study: CHF Height: 65 in Weight: 180 lb BSA: 1.9 m2 MMode/2D Measurements & Calculations IVSd: 1.0 cm Ao root diam: 2.4 cm LVIDd: 4.9 cm LA dimension: 5.3 cm LVIDs: 3.1 cm LVPWd: 1.4 cm LVPWs: 2.2 cm EDV(Teich): 111.9 ml ESV(Teich): 37.2 ml LVOT diam: 1.8 cm LAV (MOD-bp): 82.8 ml TAPSE: 1.6 cm RV S Santo: 11.2 cm/sec Doppler Measurements & Calculations Ao V2 max: 192.4 cm/sec LV V1 max P.8 mmHg Ao max P.8 mmHg LV V1 mean P.7 mmHg Ao V2 mean: 141.5 cm/sec LV V1 max: 84.4 cm/sec Ao mean P.8 mmHg LV V1 mean: 61.4 cm/sec Ao V2 VTI: 43.9 cm LV V1 VTI: 17.3 cm JIMMY(I,D): 1.1 cm2 JIMMY(V,D): 1.2 cm2 SV(LVOT): 46.4 ml TR max santo: 361.0 cm/sec TR max P.6 mmHg RVSP(TR): 62.6 mmHg PA V2 max: 91.7 cm/sec PI end-d santo: 107.2 cm/sec PA max P.4 mmHg Med Peak E' Santo: 7.2 cm/sec RAP systole: 10.0 mmHg Lat Peak E' [place]: 7.7 cm/sec Procedure A complete two-dimensional transthoracic echocardiogram was performed (2D, M-mode, Doppler and color flow Doppler). Left Ventricle The left ventricle is normal in size. Left ventricular systolic function is normal. Ejection Fraction = 55- 60%. No regional wall motion abnormalities noted. Right Ventricle The right ventricle is not well visualized. RV systolic function appears mild to moderately reduced. Atria The left atrium is moderately dilated. LA volume index is 44 ml/m2. The right atrium is moderately di lated. Mitral Valve There is mild mitral annular calcification. There is mild to moderate mitral regurgitation. Tricuspid Valve The tricuspid valve is normal in structure and function. There is severe tricuspid regurgitation. Pul monary artery systolic pressure is at least 69 mmHg if RA pressure is assumed 3 mmHg. Aortic Valve There is moderate aortic valve thickening. Mild valvular aortic stenosis. The calculated aortic valve area using the continuity equation is 1.0 cm2. DI (dimensionless index) is 0.37. No aortic regurgitation i s present. Pulmonic Valve The pulmonic valve is not well visualized. Mild pulmonic valvular regurgitation. Great Vessels The aortic root is normal size. Pericardium/Pleura Trivial pericardial effusion not hemodynamically significant. Interpretation Summary The left ventricle is normal in size. Left ventricular systolic function is normal. No regional wall motion abnormalities noted. Ejection Fraction = 55-60%. RV systolic function appears mild to moderately reduced The left atrium is moderately dilated. The right atrium is moderately dilated. There is mild mitral annular calcification. There is mild to moderate mitral regurgitation. There is severe tricuspid regurgitation. Pulmonary artery systolic pressure is at least 69 mmHg if RA pressure is assumed 3 mmHg There is moderate aortic valve thickening. Mild valvular aortic stenosis. The calculated aortic valve area using the continuity equation is 1.0 cm2. DI (dimensionless index) is 0.37 No aortic regurgitation is present. Mild pulmonic valvular regurgitation. Trivial pericardial effusion not hemodynamically significant Roger Moore MD 02/22/2019 04:38 PM
--- NOTE | 2019-02-22 18:49 | PN ---
Physical Exam: SUBJECTIVE: Patient seen and examined. She has no complaints. OBJECTIVE: Vital Signs Period Temp Pulse Resp BP Sys/Polk Pulse Ox Last 24 Hr 97.4 F-98.1 F 57-84 18-20 100-125/42-55 92-95 GENERAL: The patient is awake, alert, and fully oriented, dyspneic while speaking. LUNGS: Clear to auscultation bilaterally with decreased breath sounds at right base. HEART: Irregularly irregular. ABDOMEN: Obese, soft, nontender, nondistended, normoactive bowel sounds, no guarding, no rebound, no hepatosplenomegaly, no masses. EXTREMITIES: 2+ pulses, warm, well-perfused, 2+ edema. Laboratory Results - last 24 hr 02/22/19 02/22/19 05:20 05:20 WBC 6.7 RBC 3.48 L Hgb 8.4 L Hct 26.7 L MCV 76.6 L MCH 24.2 L MCHC 31.5 L RDW 21.4 H Plt Count 214 MPV 8.2 Sodium 142 Potassium 3.8 Chloride 100 Carbon Dioxide 36 H Anion Gap 7 L BUN 38.7 H Creatinine 1.3 Est GFR (CKD-EPI)AfAm 42.12 Est GFR (CKD-EPI)NonAf 36.34 Random Glucose 90 Calcium 8.8 Magnesium 2.5 H Active Medications Generic Name Dose Route Start Last Admin Trade Name Freq PRN Reason Stop Dose Admin Allopurinol 100 mg 02/16/19 10:00 02/22/19 09:57 Zyloprim - PO 100 mg DAILY [facility] Administration Apixaban 2.5 mg 02/15/19 22:00 02/22/19 09:57 Eliquis - PO 2.5 mg BID [facility] Administration Artificial Tears 1 drop 02/15/19 22:00 02/22/19 10:02 Artificial Tears OU 1 drop BID [facility] Administration Atorvastatin Calcium 20 mg 02/15/19 22:00 02/21/19 22:09 Lipitor - PO 20 mg HS [facility] Administration Cholecalciferol 400 unit 02/16/19 10:00 02/22/19 09:58 Vitamin D3 - PO 400 unit DAILY [facility] Administration Docusate Sodium 100 mg 02/17/19 14:00 02/22/19 06:45 Colace - PO Not Given TID [facility] Ferrous Gluconate 324 mg 02/16/19 10:00 02/22/19 09:57 Fergon - PO 324 mg DAILY [facility] Administration Furosemide 80 mg 02/16/19 06:00 02/22/19 06:47 Lasix Injection - IVPB 80 mg BID@0600,1400 [facility] Administration Magnesium Oxide 400 mg 02/15/19 22:00 02/22/19 09:57 Mag-Ox - PO 400 mg BID [facility] Administration Metoprolol Succinate 150 mg 02/15/19 22:00 02/22/19 09:57 Toprol Xl - PO 150 mg BID [facility] Administration Valsartan 40 mg 02/16/19 10:00 02/22/19 09:58 Diovan - PO 40 mg DAILY [facility] Administration ASSESSMENT/PLAN: This is an 88 year old woman with a history of chronic diastolic heart failure, atrial fib, GI bleed, chronic venous insufficiency with lymphedema, HTN, hyperlipidemia who presented to the ED with leg swelling and SOB. 1. Acute on chronic diastolic heart failure with right pleural effusion - Improving - Weight down ~11.3 kg since admission - Echo shows normal LV, LVEF 55-60%, mild to moderately reduced RV systolic function, moderately dilated LA, moderately dilated RA, mild to moderate MR, severe TR, PA systolic pressure 69 mmHg, mild , mild RI, trivial pericardial effusion - Continue Lasix IV - may decrease tomorrow per cardiology - Monitor I&O, weight 2. Stage 3 CKD - Creatinine stable 3. Hypokalemia - Improved 4. Hypermagnesemia - Discontinue magnesium supplementation 5. Atrial fibrillation, permanent - Continue Toprol XL, Eliquis 6. HTN - Continue Diovan, Toprol XL, Lasix 7. Hyperlipidemia - Continue Lipitor 8. 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 Chronic venous insufficiency with lymphedema 10. Obesity with BMI 30.0 11. Disposition - Continue PT - walked 65 feet today - May need subacute rehab at discharge Visit type - Emergency Visit Emergency Visit: Yes ED Registration Date: 02/15/19 Care time: The patient presented to the Emergency Department on the above date and was hospitalized for further evaluation of their emergent condition. - New Patient This patient is new to me today: No - Critical Care Critical Care patient: No - Discharge Referral Referred to [facility] Med P.C.: No
[2019-02-22] MEDS: ATORVASTATIN CA 10 MG TABLET (FP) PO SCH (21:57)
[2019-02-23] MEDS: DOCUSATE SODIUM 100 MG CAPSULE (FP) PO SCH ×3 (06:22→22:15)
[2019-02-23] MEDS: FUROSEMIDE 40 MG/4 ML INJECTABLE VIAL IVPB SCH ×2 (06:22→16:31)
[2019-02-23 08:14] LABS: HEMATOCRIT 27.6 % (32.4-45.2); HEMOGLOBIN 8.5 GM/dL (10.7-15.3); MCH 24.1 pg (25.7-33.7); MCHC 30.9 g/dl (32.0-36.0); MEAN CELL VOLUME 77.8 fl (80-96); MEAN PLT VOLUME 8.3 fl (7.5-11.1); PLATELET COUNT 210 K/MM3 (134-434); RBC 3.55 M/mm3 (3.60-5.2); RDW 21.7 % (11.6-15.6); WHITE BLOOD COUNT 5.9 K/mm3 (4.0-10.0)
[2019-02-23 09:06] LABS: BLOOD UREA NITROGEN 41.2 mg/dL (7-18); CALCIUM 8.8 mg/dL (8.5-10.1); CREATININE 1.3 mg/dL (0.55-1.3); MAGNESIUM 2.7 mg/dL (1.8-2.4); POTASSIUM 3.8 mmol/L (3.5-5.1)
[2019-02-23] MEDS ORDERED: PT OWN MED DRAWER 7, Y5N ONE (10:48)
[2019-02-23] MEDS: VALSARTAN 40 MG TABLET (FP) PO SCH (10:52)
[2019-02-23] MEDS: APIXABAN 2.5 MG TABLET PO SCH ×2 (10:52→22:15)
[2019-02-23] MEDS: ALLOPURINOL 100 MG TABLET (FP) PO SCH (10:52)
[2019-02-23] MEDS: CHOLECALCIFEROL (VIT D3) 400 UNIT (10 MCG) TABLET PO SCH (10:52)
[2019-02-23] MEDS: FERROUS GLUCONATE 324 MG TAB (FP) PO SCH (10:52)
[2019-02-23] MEDS: ARTIFICIAL TEARS (POLYVINYL ALCOHOL) OPTH DROPS OU SCH ×2 (10:53→22:15)
--- NOTE | 2019-02-23 11:21 | PN ---
Progress Note, Physician History of Present Illness: PULMONARY ALERT COMFORTABLE OOB-CHAIR,O2 SAT 99% ON NASAL CANNULA - Current Medication List Current Medications: Active Medications Allopurinol (Zyloprim -) 100 mg PO DAILY [facility] Last Admin: 02/23/19 10:52 Dose: 100 mg Apixaban (Eliquis -) 2.5 mg PO BID [facility] Last Admin: 02/23/19 10:52 Dose: 2.5 mg Artificial Tears (Artificial Tears) 1 drop OU BID [facility] Last Admin: 02/23/19 10:53 Dose: 1 drop Atorvastatin Calcium (Lipitor -) 20 mg PO HS [facility] Last Admin: 02/22/19 21:57 Dose: 20 mg Cholecalciferol (Vitamin D3 -) 400 unit PO DAILY [facility] Last Admin: 02/23/19 10:52 Dose: 400 unit Docusate Sodium (Colace -) 100 mg PO TID [facility] Last Admin: 02/23/19 06:22 Dose: Not Given Ferrous Gluconate (Fergon -) 324 mg PO DAILY [facility] Last Admin: 02/23/19 10:52 Dose: 324 mg Furosemide (Lasix Injection -) 80 mg IVPB BID@0600,1400 [facility] Last Admin: 02/23/19 06:22 Dose: 80 mg Metoprolol Succinate (Toprol Xl -) 150 mg PO BID [facility] Last Admin: 02/23/19 10:52 Dose: 150 mg Valsartan (Diovan -) 40 mg PO DAILY [facility] Last Admin: 02/23/19 10:52 Dose: 40 mg - Objective Vital Signs: Vital Signs Temperature 97.4 F L 02/23/19 06:00 Pulse Rate 69 02/23/19 06:00 Respiratory Rate 18 02/23/19 06:00 Blood Pressure 106/68 02/23/19 06:00 O2 Sat by Pulse Oximetry (%) 99 02/22/19 21:00 Constitutional: Yes: Well Nourished, Calm Eyes: Yes: WNL HENT: Yes: WNL Neck: Yes: WNL Cardiovascular: Yes: Pulse Irregular, S1, S2 Respiratory: Yes: Diminished Gastrointestinal: Yes: Normal Bowel Sounds, Soft Extremities: Yes: WNL Edema: Yes Labs: CBC, BMP 02/23/19 05:35 02/23/19 05:35 INR, PTT INR 1.89 (0.83-1.09) H 02/16/19 05:28 - ....Imaging Chest X-ray: Report Reviewed, Image Reviewed Problem List - Problems (1) Acquired lymphedema of leg Code(s): I89.0 - LYMPHEDEMA, NOT ELSEWHERE CLASSIFIED (2) Pleural effusion Code(s): J90 - PLEURAL EFFUSION, NOT ELSEWHERE CLASSIFIED (3) Shortness of breath Code(s): R06.02 - SHORTNESS OF BREATH (4) Weakness Code(s): R53.1 - WEAKNESS (5) Diastolic CHF, acute on chronic Code(s): I50.33 - ACUTE ON CHRONIC DIASTOLIC (CONGESTIVE) HEART FAILURE (6) Blepharitis of both eyes Code(s): H01.003 - UNSPECIFIED BLEPHARITIS RIGHT EYE, UNSPECIFIED EYELID; H01.006 - UNSPECIFIED BLEPHARITIS LEFT EYE, UNSPECIFIED EYELID Qualifiers: Blepharitis type: squamous Eyelid: both upper and lower Qualified Code(s) : H01.02A - Squamous blepharitis right eye, upper and lower eyelids; H01.02B - Squamous blepharitis left eye, upper and lower eyelids (7) History of GI bleed Code(s): Z87.19 - PERSONAL HISTORY OF OTHER DISEASES OF THE DIGESTIVE SYSTEM (8) Pulmonary HTN Code(s): I27.20 - PULMONARY HYPERTENSION, UNSPECIFIED (9) Atrial fibrillation Code(s): I48.91 - UNSPECIFIED ATRIAL FIBRILLATION Qualifiers: Atrial fibrillation type: paroxysmal Qualified Code(s): I48.0 - Paroxysmal atrial fibrillation (10) HTN (hypertension) Code(s): I10 - ESSENTIAL (PRIMARY) HYPERTENSION (11) Hyperlipidemia Code(s): E78.5 - HYPERLIPIDEMIA, UNSPECIFIED Assessment/Plan IMP DYSPNEA IMPROVED ACUTE ON CHRONIC CHF IMPROVING BILATERAL PLEURAL EFFUSIONS SECONDARY TO CHF PULMONARY HTN AFIB LOWER EXT EDEMA H/O CVA H/O BILATERAL FRONTAL CRANIOTOMIES H/O GI BLEED ANEMIA ACUTE ON CHRONIC KIDNEY DISEASE PLAN LASIX as per cardiology ELIQUIS SUPPLEMENTAL O2 DAILY WTS MONITOR LYTES, 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 H+H DR AJ Problem List - Problems (1) Acquired lymphedema of leg Code(s): I89.0 - LYMPHEDEMA, NOT ELSEWHERE CLASSIFIED (2) Pleural effusion Code(s): J90 - PLEURAL EFFUSION, NOT ELSEWHERE CLASSIFIED (3) Shortness of breath Code(s): R06.02 - SHORTNESS OF BREATH (4) Weakness Code(s): R53.1 - WEAKNESS (5) Diastolic CHF, acute on chronic Code(s): I50.33 - ACUTE ON CHRONIC DIASTOLIC (CONGESTIVE) HEART FAILURE (6) Blepharitis of both eyes Code(s): H01.003 - UNSPECIFIED BLEPHARITIS RIGHT EYE, UNSPECIFIED EYELID; H01.006 - UNSPECIFIED BLEPHARITIS LEFT EYE, UNSPECIFIED EYELID Qualifiers: Blepharitis type: squamous Eyelid: both upper and lower Qualified Code(s) : H01.021 - Squamous blepharitis right upper eyelid; H01.022 - Squamous blepharitis right lower eyelid; H01.022 - Squamous blepharitis right lower eyelid; H01.024 - Squamous blepharitis left upper eyelid; H01.024 - Squamous blepharitis left upper eyelid; H01.025 - Squamous blepharitis left lower eyelid ; H01.025 - Squamous blepharitis left lower eyelid (7) History of GI bleed Code(s): Z87.19 - PERSONAL HISTORY OF OTHER DISEASES OF THE DIGESTIVE SYSTEM (8) Pulmonary HTN Code(s): I27.20 - PULMONARY HYPERTENSION, UNSPECIFIED (9) Atrial fibrillation Code(s): I48.91 - UNSPECIFIED ATRIAL FIBRILLATION Qualifiers: Atrial fibrillation type: paroxysmal Qualified Code(s): I48.0 - Paroxysmal atrial fibrillation (10) HTN (hypertension) Code(s): I10 - ESSENTIAL (PRIMARY) HYPERTENSION (11) Hyperlipidemia Code(s): E78.5 - HYPERLIPIDEMIA, UNSPECIFIED
--- NOTE | 2019-02-23 12:18 | PN ---
Progress Note (short form) - Note Progress Note: no chest pain, palps, dizziness. dyspnea improving, walked with PT and felt breathing was ok. edema improving Current Medications Allopurinol (Zyloprim -) 100 mg PO DAILY [facility] Last Admin: 02/23/19 10:52 Dose: 100 mg Apixaban (Eliquis -) 2.5 mg PO BID [facility] Last Admin: 02/23/19 10:52 Dose: 2.5 mg Artificial Tears (Artificial Tears) 1 drop OU BID [facility] Last Admin: 02/23/19 10:53 Dose: 1 drop Atorvastatin Calcium (Lipitor -) 20 mg PO HS [facility] Last Admin: 02/22/19 21:57 Dose: 20 mg Cholecalciferol (Vitamin D3 -) 400 unit PO DAILY [facility] Last Admin: 02/23/19 10:52 Dose: 400 unit Docusate Sodium (Colace -) 100 mg PO TID [facility] Last Admin: 02/23/19 06:22 Dose: Not Given Ferrous Gluconate (Fergon -) 324 mg PO DAILY [facility] Last Admin: 02/23/19 10:52 Dose: 324 mg Furosemide (Lasix Injection -) 80 mg IVPB BID@0600,1400 [facility] Last Admin: 02/23/19 06:22 Dose: 80 mg Metoprolol Succinate (Toprol Xl -) 150 mg PO BID [facility] Last Admin: 02/23/19 10:52 Dose: 150 mg Valsartan (Diovan -) 40 mg PO DAILY [facility] Last Admin: 02/23/19 10:52 Dose: 40 mg Vital Signs Period Temp Pulse Resp BP Sys/Polk Pulse Ox Last 24 Hr 97.4 F-98.3 F 69-82 18-20 100-138/42-78 92-99 Constitutional: Yes: No Distress Cardiovascular: Yes: Pulse Irregular Respiratory: Yes: Other (clear, no rales.) Gastrointestinal: Yes: Soft Edema: Yes Edema: LLE: 2+, RLE: 2+ Neurological: Yes: Alert, Oriented - ....Imaging EKG: Image Reviewed Assessment/Plan DATA: CT chest: large R effusion, small L. no pulm edema described Echo 02/14: ([facility]): LV not well seen. RV ??. mild (AV not well seen). mod-sev MR and TR. RVSP 40-50. Echo 06/2017: nl lv fn. mod rve. rv sys function moderately reduced. mild MR, mod TR. sev phtn. trivial pericardial effusion. Echo 2016: low-nl EF 50-55% (beat to beat variability). mod RV dilation, borderline depressed RV fxn. 1+ /MR, Mod TR, mod pHTN (avg TR 42 mmHg), Cath 2005: LVEDP 18, EF 60%. pRCA mild, pLAD mild, mLAD 50-60%, pLCx mild, OM1 mild. CT head: R occipital lobe infarct, likely old Carotid sono 2018: rt common carotid with mod plaque 50-69%. moderate plaque on left with borderline stenosis. echo 06/2018 nl LV function, mildly dilated LA/RA, mild MR, mod to severe TR echo 01/2019 nl LV function, RV mild to modeartely reduced function, LA/RA mod dilated, mild to mod MR, severe TR, PASP at least 69 mmHg, mild tele: afib rate controlled Acute on chronic diastolic CHF with pHTN/RV failure, R pleural effusion: - poor compliance w/ home Torsemide - edema improving, Cr stable with IV lasix - CXR shows congestion improving - wt up today however edema and dyspnea improving - cont same dose lasix - will continue IV lasix today, may be able to transition to PO torsemide in 24- 48 hours - monitor cr, lytes, daily weights - cont home metoprolol, valsartan Afib: - stable, continue metoprolol , eliquis adjusted for age/weight and renal function. CKD: -baseline creat 1.0-1.5 -renal fxn stable here HTN: - stable, cont home meds Carotid Atherosclerosis: - previously declined further imaging w/u as outpt - cont statin
--- NOTE | 2019-02-23 14:09 | PN ---
Physical Exam: SUBJECTIVE: Patient seen and examined, breathing swelling improved, overall feels better, ambulating, no new complaints. OBJECTIVE: Vital Signs Period Temp Pulse Resp BP Sys/Polk Pulse Ox Last 24 Hr 97.4 F-98.3 F 69-82 18-20 100-138/42-78 92-99 Intake & Output 02/20/19 02/21/19 02/22/19 02/23/19 23:59 23:59 23:59 23:59 Intake Total 900 698 310 270 Balance 900 698 310 270 Weight 183 lb 12.8 oz 179 lb 3.2 oz 180 lb 3.2 oz 182 lb 3.2 oz GENERAL: sitting in chair in no acute distress, no use of accessory muscles Neck: soft, supple, no JVd visualized Chest: decreased breath sounds at bases, R>L Abdomen: soft, obese, NT Extremities: markedly improved pedal edema, 1+, compression stockings in place Psych: anxious but co-operative CVS:S1S2 irregular Laboratory Results - last 24 hr 02/23/19 02/23/19 05:35 05:35 WBC 5.9 RBC 3.55 L Hgb 8.5 L Hct 27.6 L MCV 77.8 L MCH 24.1 L MCHC 30.9 L RDW 21.7 H Plt Count 210 MPV 8.3 Sodium 141 Potassium 3.8 Chloride 99 Carbon Dioxide 34 H Anion Gap 9 BUN 41.2 H Creatinine 1.3 Est GFR (CKD-EPI)AfAm 42.12 Est GFR (CKD-EPI)NonAf 36.34 Random Glucose 87 Calcium 8.8 Magnesium 2.7 H Active Medications Generic Name Dose Route Start Last Admin Trade Name Selena PRN Reason Stop Dose Admin Allopurinol 100 mg 02/16/19 10:00 02/23/19 10:52 Zyloprim - PO 100 mg DAILY NOEMÍ Administration Apixaban 2.5 mg 02/15/19 22:00 02/23/19 10:52 Eliquis - PO 2.5 mg BID NOEMÍ Administration Artificial Tears 1 drop 02/15/19 22:00 02/23/19 10:53 Artificial Tears OU 1 drop BID NOEMÍ Administration Atorvastatin Calcium 20 mg 02/15/19 22:00 02/22/19 21:57 Lipitor - PO 20 mg HS NOEMÍ Administration Cholecalciferol 400 unit 02/16/19 10:00 02/23/19 10:52 Vitamin D3 - PO 400 unit DAILY [facility] Administration Docusate Sodium 100 mg 02/17/19 14:00 02/23/19 06:22 Colace - PO Not Given TID [facility] Ferrous Gluconate 324 mg 02/16/19 10:00 02/23/19 10:52 Fergon - PO 324 mg DAILY NOEMÍ Administration Furosemide 80 mg 02/16/19 06:00 02/23/19 06:22 Lasix Injection - IVPB 80 mg BID@0600,1400 [facility] Administration Metoprolol Succinate 150 mg 02/15/19 22:00 02/23/19 10:52 Toprol Xl - PO 150 mg BID NOEMÍ Administration Valsartan 40 mg 02/16/19 10:00 02/23/19 10:52 Diovan - PO 40 mg DAILY NOEMÍ Administration Home Medications Medication Instructions Recorded Cholecalciferol (Vitamin D3) 400 unit PO DAILY 02/25/18 [Vitamin D -] Apixaban [Eliquis -] 2.5 mg PO BID tablet 03/09/18 Magnesium Oxide 400 mg PO BID 07/12/18 Allopurinol [Zyloprim -] 100 mg PO DAILY 07/13/18 Ferrous Gluconate [Fergon -] 324 mg PO DAILY tab 07/29/18 Polyvinyl Alcohol [Artificial 1 drop OU BID drops 07/29/18 Tears] Torsemide [Demadex -] 40 mg PO DAILY tablet 07/29/18 Valsartan [Diovan] 40 mg PO DAILY tablet 07/29/18 Atorvastatin Ca [Lipitor] 20 mg PO HS 02/15/19 Metoprolol Succinate [Toprol Xl] 150 mg PO BID 02/15/19 Laboratory Results - last 24 hr 02/23/19 02/23/19 05:35 05:35 WBC 5.9 RBC 3.55 L Hgb 8.5 L Hct 27.6 L MCV 77.8 L MCH 24.1 L MCHC 30.9 L RDW 21.7 H Plt Count 210 MPV 8.3 Sodium 141 Potassium 3.8 Chloride 99 Carbon Dioxide 34 H Anion Gap 9 BUN 41.2 H Creatinine 1.3 Est GFR (CKD-EPI)AfAm 42.12 Est GFR (CKD-EPI)NonAf 36.34 Random Glucose 87 Calcium 8.8 Magnesium 2.7 H ASSESSMENT/PLAN: 88 yof with PMhx of diastolic HF, AFib on Eliquis, GI bleed, venous insufficiency with chronic lymphedema, HTN, HLD, last admitted with CHF/Right transudative pleural effusion in 06/2018 s/p chest tube/diuresis admitted with acute CHF exacerbation in the setting of medication+/- dietary non compliance. -Acute on chronic diastolic heart failure exacerbation, in the setting of medication+/- dietary non compliance -Right pleural effusion, likely from above -Mild Luigi, suspect cardiorenal, vs CKD stage II-III -Hypokalemia -Atrial fibrillation on eliquis -HTN -HLD -GI bleed -Obesity, BMI 30.3 -Chronic Microcytic anemia due to iron deficiency -Venous insufficiency/Chronic lymphedema Plan: markedly improved. Discussed with Dr. Cortez, plan to transition to PO torsemide 40 mg daily tomorrow No home oxygen needs noted. Repeat CXR from 02/22 reviewed. 2D echo results reviewed Renal function stable. iron panel noted, continue PO Fe suppl. Continue metoprolol/eliquis/statin/ARB/Mg PT eval noted, social work input noted Plan for snf vs home with services tomorrow if continues to improve Discussed with patient and nursing, all questions answered. Visit type - Emergency Visit Emergency Visit: Yes ED Registration Date: 02/15/19 Care time: The patient presented to the Emergency Department on the above date and was hospitalized for further evaluation of their emergent condition. - New Patient This patient is new to me today: No - Critical Care Critical Care patient: No - Discharge Referral Referred to [facility] Med P.C.: No
[2019-02-23] MEDS ORDERED: FUROSEMIDE 40 MG/4 ML INJECTABLE VIAL ONE (16:22)
[2019-02-23 17:00] VITALS: BMI 29.9
[2019-02-23] MEDS: ATORVASTATIN CA 10 MG TABLET (FP) PO SCH (22:15)
[2019-02-24 03:23] VITALS: TEMP 97.4
[2019-02-24] MEDS: DOCUSATE SODIUM 100 MG CAPSULE (FP) PO SCH (06:30)
[2019-02-24 06:59] LABS: CALCIUM 8.9 mg/dL (8.5-10.1); CREATININE 1.3 mg/dL (0.55-1.3); MAGNESIUM 2.4 mg/dL (1.8-2.4); PHOSPHOROUS 4.2 mg/dL (2.5-4.9); POTASSIUM 3.5 mmol/L (3.5-5.1)
--- NOTE | 2019-02-24 09:03 | DS ---
Physical Exam: SUBJECTIVE: Patient seen and examined, breathing/swelling improved,. OBJECTIVE: Vital Signs Period Temp Pulse Resp BP Sys/Polk Pulse Ox Last 24 Hr 97.4 F-98.5 F 69-81 18-20 106-139/59-69 96-97 Intake & Output 02/21/19 02/22/19 02/23/19 02/24/19 23:59 23:59 23:59 23:59 Intake Total 698 310 910 10 Balance 698 310 910 10 Weight 179 lb 3.2 oz 180 lb 182 lb 3.2 oz 177 lb 9.6 oz PHYSICAL EXAM GENERAL: sitting in chair in no acute distress, no use of accessory muscles Neck: soft, supple, no JVd visualized Chest: decreased breath sounds at bases, R>L Abdomen: soft, obese, NT Extremities: markedly improved pedal edema, 1+, compression stockings in place Psych: anxious but co-operative CVS:S1S2 irregular LABS Laboratory Results - last 24 hr 02/23/19 02/23/19 02/24/19 05:35 05:35 05:12 WBC 5.9 RBC 3.55 L Hgb 8.5 L Hct 27.6 L MCV 77.8 L MCH 24.1 L MCHC 30.9 L RDW 21.7 H Plt Count 210 MPV 8.3 Sodium 141 141 Potassium 3.8 3.5 Chloride 99 98 Carbon Dioxide 34 H 36 H Anion Gap 9 7 L BUN 41.2 H 41.0 H Creatinine 1.3 1.3 Est GFR (CKD-EPI)AfAm 42.12 42.12 Est GFR (CKD-EPI)NonAf 36.34 36.34 Random Glucose 87 87 Calcium 8.8 8.9 Phosphorus 4.2 [address] chest: Compared to prior chest x-ray dated and prior CT scan of the chest dated 07/12/2018 Moderate right pleural effusion with compressive atelectasis/ consolidation the right lower lobe, posteriorly is again seen. A small left pleural effusion is again seen. There is mild interstitial thickening, bilaterally. Cannot rule out mild pulmonary venous congestion. Moderate to marked cardiomegaly with calcification of the coronary arteries again seen. No gross enlarged mediastinal or hilar lymph nodes are identified. The tracheobronchial tree appears unremarkable Included portion of the upper abdomen , no gross organomegaly is seen. There is heterogeneous attenuation of the right hepatic lobe, posteriorly. Postcholecystectomy surgical metallic clips are present. Visualized osseous structures appear to be intact. There are mild degenerative changes and anterior spondylosis in the thoracic spine. There are a couple of small sclerotic densities in the mid to lower vertebral bodies which are nonspecific IMPRESSION: Persistent moderate right and small left pleural effusion. Consolidation/atelectasis and dependent portion of the right lower lobe. There are also mild atelectatic changes in lingular segment of the left upper lobe. Cannot rule out superimposed pneumonia. Significant cardiomegaly with desiccation of the coronary arteries and a small pericardial effusion. Heterogeneous attenuation of the right hepatic lobe, posteriorly for which correlation with liver ultrasound is needed for further evaluation. Status post cholecystectomy HOSPITAL COURSE: Date of Admission:02/15/19 Date of Discharge: 02/24/19 Minutes to complete discharge: 40 Discharge Summary Reason For Visit: DIASTOLIC CONGESTIVE HEART FAILURE Current Active Problems Acquired lymphedema of leg (Acute) Pleural effusion (Acute) Shortness of breath (Acute) Weakness (Acute) Diastolic CHF, acute on chronic (Chronic) Hospital Course: 88 yof with PMhx of diastolic HF, AFib on Eliquis, GI bleed, venous insufficiency with chronic lymphedema, HTN, HLD, last admitted with CHF/Right transudative pleural effusion in 06/2018 s/p chest tube/diuresis admitted with acute CHF exacerbation in the setting of medication+/- dietary non compliance. She was placed on IV lasix with marked improvement in her volume status and respiratory symptoms. She was seen by cardiology and pulmonary. She had CT chest with results above. Her chest xray improved and she had no home oxygen needs on discharge. She will be discharged in stable condition on home dose of torsemide 40 mg daily and has been counseled on medication/dietary compliance, weight monitoring and close follow up with her PCP and foreign policy officer outpatient. Condition: Stable - Instructions Diet, Activity, Other Instructions: You were admitted with congestive heart failure, you received intravenous lasix with improvement in your symptoms. You were not noted to need any oxygen on discharge. MEDICATIONS: Continue all your home medications as before. It is very important that you take your torsemide as directed INSTRUCTIONS: Weigh yourself daily and notify doctor if weight gain > 3lbs in 2 days. Low salt diet and fluid restriction 1.5 liters. Keep taking your torsemide as instructed by your foreign policy officer and follow up. FOLLOW UP: Blood work BMP (Basic Metabolic Panel) in 1 week with your doctor With Dr. Graham in [address] Cortez in 1 week If you notice any worsening swelling, trouble breathing, or any new concerns, please call 911 or come to ED. Referrals: Rayne oCrtez MD [Staff Physician] - Dania Graham MD [Primary Care Provider] - Disposition: VNS/HOME HEALTH CARE - Home Medications Comprehensive Discharge Medication List: Ambulatory Orders Cholecalciferol (Vitamin D3) [Vitamin D -] 400 unit PO DAILY 02/25/18 Apixaban [Eliquis -] 2.5 mg PO BID tablet 03/09/18 Magnesium Oxide 400 mg PO BID 07/12/18 Allopurinol [Zyloprim -] 100 mg PO DAILY 07/13/18 Ferrous Gluconate [Fergon -] 324 mg PO DAILY tab 07/29/18 Polyvinyl Alcohol [Artificial Tears] 1 drop OU BID drops 07/29/18 Torsemide [Demadex -] 40 mg PO DAILY tablet 07/29/18 Valsartan [Diovan] 40 mg PO DAILY tablet 07/29/18 Atorvastatin Ca [Lipitor] 20 mg PO HS 02/15/19 Metoprolol Succinate [Toprol Xl] 150 mg PO BID 02/24/19 This patient is new to me today: No Emergency Visit: Yes ED Registration Date: 02/15/19 Care time: The patient presented to the Emergency Department on the above date and was hospitalized for further evaluation of their emergent condition. Critical Care patient: No - Discharge Referral Referred to [facility] Med P.C.: No
[2019-02-24] MEDS ORDERED: TORSEMIDE 20 MG TABLET (FP) PO SCH (10:00)
[2019-02-24] MEDS: FERROUS GLUCONATE 324 MG TAB (FP) PO SCH (10:58)
[2019-02-24] MEDS: CHOLECALCIFEROL (VIT D3) 400 UNIT (10 MCG) TABLET PO SCH (10:58)
[2019-02-24] MEDS: APIXABAN 2.5 MG TABLET PO SCH (10:58)
[2019-02-24] MEDS: ALLOPURINOL 100 MG TABLET (FP) PO SCH (10:58)
[2019-02-24] MEDS: ARTIFICIAL TEARS (POLYVINYL ALCOHOL) OPTH DROPS OU SCH (10:59)
[2019-02-24] MEDS: VALSARTAN 40 MG TABLET (FP) PO SCH (10:59)
--- NOTE | 2019-02-24 11:09 | PN ---
Progress Note (short form) - Note Progress Note: no chest pain, palps, dizziness, edema near baseline. Current Medications Allopurinol (Zyloprim -) 100 mg PO DAILY [facility] Last Admin: 02/24/19 10:58 Dose: 100 mg Apixaban (Eliquis -) 2.5 mg PO BID [facility] Last Admin: 02/24/19 10:58 Dose: 2.5 mg Artificial Tears (Artificial Tears) 1 drop OU BID [facility] Last Admin: 02/24/19 10:59 Dose: 1 drop Atorvastatin Calcium (Lipitor -) 20 mg PO HS [facility] Last Admin: 02/23/19 22:15 Dose: 20 mg Cholecalciferol (Vitamin D3 -) 400 unit PO DAILY [facility] Last Admin: 02/24/19 10:58 Dose: 400 unit Docusate Sodium (Colace -) 100 mg PO TID [facility] Last Admin: 02/24/19 06:30 Dose: Not Given Ferrous Gluconate (Fergon -) 324 mg PO DAILY [facility] Last Admin: 02/24/19 10:58 Dose: 324 mg Metoprolol Succinate (Toprol Xl -) 150 mg PO BID [facility] Last Admin: 02/24/19 10:58 Dose: 150 mg Torsemide (Demadex -) 40 mg PO DAILY [facility] Last Admin: 02/24/19 10:58 Dose: 40 mg Valsartan (Diovan -) 40 mg PO DAILY [facility] Last Admin: 02/24/19 10:59 Dose: 40 mg Vital Signs Period Temp Pulse Resp BP Sys/Polk Pulse Ox Last 24 Hr 97.4 F-98.5 F 72-81 18-20 113-139/59-69 96 Constitutional: Yes: No Distress Cardiovascular: Yes: Pulse Irregular Respiratory: Yes: Other (clear, no rales.) Gastrointestinal: Yes: Soft Edema: Yes Edema: LLE: 2+, RLE: 2+ Neurological: Yes: Alert, Oriented - ....Imaging EKG: Image Reviewed Assessment/Plan DATA: CT chest: large R effusion, small L. no pulm edema described Echo 02/14: (SJ): LV not well seen. RV ??. mild (AV not well seen). mod-sev MR and TR. RVSP 40-50. Echo 06/2017: nl lv fn. mod rve. rv sys function moderately reduced. mild MR, mod TR. sev phtn. trivial pericardial effusion. Echo 2016: low-nl EF 50-55% (beat to beat variability). mod RV dilation, borderline depressed RV fxn. 1+ /MR, Mod TR, mod pHTN (avg TR 42 mmHg), Cath 2006: LVEDP 18, EF 60%. pRCA mild, pLAD mild, mLAD 50-60%, pLCx mild, OM1 mild. CT head: R occipital lobe infarct, likely old Carotid sono 2018: rt common carotid with mod plaque 50-69%. moderate plaque on left with borderline stenosis. 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 follow up 1-2 weeks - dietary and medication compliance, fluid restriction reinforced with patient - cont home metoprolol, valsartan Afib: - stable, continue metoprolol , eliquis adjusted for age/weight and renal function. CKD: -baseline creat 1.0-1.5 -renal fxn stable here HTN: - stable, cont home meds Carotid Atherosclerosis: - previously declined further imaging w/u as outpt - cont statin
[2019-02-24 11:38] VITALS: BP 137/80; PULSE 82
== END 2019-02-24 11:46 | DRG 291 ==
LOC: JER 12:32 → JERBED 14:28 → J4W 23:38
PROVIDERS: ADMIT Hospitalist; ATTEND Hospitalist
DX: I13.0 Hypertensive heart and chronic kidney disease with heart failure and stage 1 through stage 4 chronic kidney disease, or unspecified chronic kidney disease (principal); I50.33 Acute on chronic diastolic (congestive) heart failure; M87.859 Other osteonecrosis, unspecified femur; N17.9 Acute kidney failure, unspecified; E78.5 Hyperlipidemia, unspecified; I27.20 Pulmonary hypertension, unspecified; Z79.01 Long term (current) use of anticoagulants; Z91.14 Patient's other noncompliance with medication regimen; Z91.11 Patient's noncompliance with dietary regimen; I87.2 Venous insufficiency (chronic) (peripheral); I89.0 Lymphedema, not elsewhere classified; D50.9 Iron deficiency anemia, unspecified; E87.6 Hypokalemia; H01.006 Unspecified blepharitis left eye, unspecified eyelid; H01.003 Unspecified blepharitis right eye, unspecified eyelid; N18.3 Chronic kidney disease, stage 3 (moderate); E66.9 Obesity, unspecified; Z68.31 Body mass index [BMI] 31.0-31.9, adult; E83.41 Hypermagnesemia; I48.2 Chronic atrial fibrillation
CPT/HCPCS: 36415; 71045-TC-FY; 71046-TC-FY; 71250-TC; 80048; 80053; 81003; 82550; 82553; 82728; 83540; 83550; 83735; 83880; 84100; 84484; 85025; 85027; 85610; 85730; 93005; 93010; 93306-TC; 94761; 97116-GP; 97162-GP; 99284-25